=== PATIENT | female | born 1945 | race Caucasian/White ===

== ENCOUNTER 2020-05-21 07:47 | Outpatient (CLI) | payer MEDICARE, MEDICAID, SELFPAY ==
--- NOTE | 2020-05-21 | USCV_ITS ---
Ilana Lau Age: 74 Gender: F : 1945 Exam Date: 05/21/2020 08:39 Ordering Phys: Bryan Seay DO Technologist: Desirae Huntley [place] [facility] [place]ST PAIN BP: 123 / 69 HR: 65 Rhythm: Sinus Technical Quality: Adequate MEASUREMENTS (Male / Female) Normal Values 2D ECHO LV Diastolic Diameter PLAX 4.0 cm 4.2 - 5.9 / 3.9 - 5.3 cm LV Systolic Diameter PLAX 2.8 cm LV Chamber Size 3.7 cm IVS Diastolic Thickness 1.0 cm 0.6 - 1.0 / 0.6 - 0.9 cm IVS Systolic Thickness 1.8 cm LVPW Diastolic Thickness 0.6 cm 0.6 - 1.0 / 0.6 - 0.9 cm LVPW Systolic Thickness 1.9 cm RV Chamber Size 2.9 cm LVOT Diameter 2.0 cm LV Ejection Fraction 2D Teich 57.7 % LV Ejection Fraction MOD 2C 65.7 % LV Ejection Fraction 2C AL 67.1 % LA Diameter 3.4 cm LA Width 3.0 cm LA Height 4.2 cm RA Width 3.4 cm RA Height 3.9 cm Aorta at Sinotubular Diameter 3.0 cm M-MODE LV Diastolic Diameter MM 4.8 cm 4.2 - 5.9 / 3.9 - 5.3 cm LV Systolic Diameter MM 2.8 cm LV Ejection Fraction MM Teich 72.1 % IVS Diastolic Thickness MM 1.3 cm 0.6 - 1.0 / 0.6 - 0.9 cm IVS Systolic Thickness MM 1.7 cm LVPW Diastolic Thickness MM 1.3 cm 0.6 - 1.0 / 0.6 - 0.9 cm LVPW Systolic Thickness MM 1.9 cm RV Diastolic Diameter MM 1.6 cm Aortic Annulus Diameter 2.6 cm LA Ao Ratio MM 1.3 MV E Point Septal Separation 0.4 cm DOPPLER AV Peak Velocity 116.0 cm/s LVOT Peak Velocity 73.0 cm/s AV Area Cont Eq vti 2.1 cm squared AV Area Cont Eq pk 2.1 cm squared MV Area PHT 3.7 cm squared Mitral E to A Ratio 1.1 MV E' Velocity 39.0 cm/s Mitral E to MV E' Ratio 11.2 Mitral E to LV E' Lateral Ratio 11.1 Mitral E to LV E' Septal Ratio 11.4 TR Peak Velocity 207.8 cm/s TR Peak Gradient 17.3 mmHg TR Mean Velocity 145.8 cm/s TR Mean Gradient 10.3 mmHg TR Velocity Time Integral 63.1 cm TV Peak E Velocity 49.0 cm/s Right Atrial Pressure 3.0 mmHg Pulmonary Artery Systolic Pressu 20.3 mmHg PV Peak Velocity 43.0 cm/s RV Acceleration Time 0.2 s RV Ejection Time 0.4 s RV AcT/ET 0.4 FINDINGS Left Ventricle Normal left ventricular size and systolic function, EF 55 %. No regional wall motion abnormalities. Right Ventricle Normal right ventricular size and systolic function. Right Atrium Normal right atrial size. Left Atrium Normal left atrial size. Mitral Valve No gross abnormalities noted Aortic Valve Thickened aortic valve. Mild aortic valve regurgitation. Tricuspid Valve Trace tricuspid valve regurgitation. Pulmonic Valve Not visualized well Pericardium No pericardial effusion. Aorta Normal aortic annulus size. CONCLUSIONS Normal left ventricular size and systolic function, EF 55 %. No regional wall motion abnormalities. Thickened aortic valve. Mild aortic valve regurgitation. Trace tricuspid valve regurgitation. There is no pericardial effusion. There are no intracardiac masses. No previous study is available for comparison. Dr Yazan Angelo MD FACC (Electronically Signed) Final Date: 21 May 2020 17:57 S
--- NOTE | 2020-05-21 08:32 | XR_ITS ---
WS: [id number] CHEST 2 VIEWS HISTORY: CHEST PAIN COMPARISON: 01/18/2017 Lungs: Marked pulmonary hyperinflation. No pneumonia. Normal vasculature. No pleural effusion. Cardiac size: Mildly enlarged cardiac silhouette. Mediastinum/Aorta: Mildly ectatic aorta. Bones: Osteopenia with increase in thoracic kyphosis. XR/XR chest 2V* [id number] IMPRESSION: 1. Chronic emphysema with no pneumonia. 2. Mild atherosclerosis aorta.
== END 2020-05-21 07:48 | disposition home or self-care (01) ==
LOC: RAD 07:51
PROVIDERS: PCP Family Medicine; Visit Provider Family Medicine
DX: R07.89 Other chest pain (principal); Z72.0 Tobacco use; I10 Essential (primary) hypertension; J43.9 Emphysema, unspecified; I70.0 Atherosclerosis of aorta; I08.2 Rheumatic disorders of both aortic and tricuspid valves
CPT/HCPCS: 71046; 93306

== ENCOUNTER 2020-06-12 13:34 | Outpatient (CLI) | payer MEDICARE, MEDICAID, SELFPAY ==
--- NOTE | 2020-06-12 13:43 | MM_ITS ---
WS: [id number] Exam: [id number] Date/Time of Exam: 06/12/2020 1:43 PM Reason For Exam: SCREENING VIEWS: MLO and CC views both breasts. Comparison made with prior exam of 03/17/2017. Findings: There was no sign of mass, architectural distortion or suspicious calcification in either breast. Sc attered fibroglandular densities MM/[id number] Impression: BI-RADS: 2-Benign FOLLOW-UP: 1 Year Follow-up This mammogram was also analyzed by the Computer Aided Detection System R2 Imag e Account [employer].
== END 2020-06-12 13:35 | disposition home or self-care (01) ==
LOC: RADSHAW 13:41
PROVIDERS: PCP Family Medicine; Visit Provider Family Medicine
DX: Z12.31 Encounter for screening mammogram for malignant neoplasm of breast (principal)
CPT/HCPCS: 77067

== ENCOUNTER 2020-10-24 17:28 | Inpatient (IN) | payer MEDICARE, MEDICAID, SELFPAY ==
[2020-10-24] VITALS (11 sets, daily range): BP systolic 86–174; BP diastolic 61–88; PULSE 79–120; RESP 15–22; TEMP 36.7–37.1; O2SAT 94–98; BMI 28.7
--- NOTE | 2020-10-24 17:59 | XR_ITS ---
WS: [id number] Portable AP upright chest, 10/24/2020 Clinical Data: chest pain Comparison: PA and lateral chest, 05/21/2020. Findings: No nodules, masses or effusions are seen. The heart is slightly enlarged. The pulmonary vas cularity is not increased. No pneumonia or pneumothorax is seen. The aortic arch and descending aorta show calcification and tortuosity. Monitor leads are on the chest wall. XR/XR chest 1V portable [id number] Impression: Atherosclerosis and cardiomegaly.
--- NOTE | 2020-10-24 18:29 | W.ED.CHESTPA ---
HPI - Chest Pain General: Chief Complaint: Chest Pain Stated Complaint: HEART ISSUES, HEADACHE Time Seen by Provider: 10/24/20 18:15 Source: patient Mode of arrival: ambulatory Limitations: no limitations History of Present Illness: HPI narrative: 74-year-old female states that starting days been having chest pain along with shortness of breath. She states that it is much worse with deep inspiration. Patient here is in A. fib with RVR and has no history of A. fib in the past. States pain is sharp in nature over the left side. Denies any history of heart disease. She has had no cough or fever. Denies any vomiting or diarrhea. Associated symptoms: Deny abdominal pain, dyspnea, fever(s), nausea or vomiting Review of Systems Const: Denies: fever(s), chills, body aches or change in appetite Eyes: Denies: blurry vision or eye discomfort ENMT: Denies: throat pain or dental pain Card: Reports: chest pain and irregular heart rhythm Resp: Denies: dyspnea GI: Denies: abdominal pain, nausea, vomiting or diarrhea : Denies: dysuria Musc: Denies: neck pain or back pain Skin/Breast: Denies: rash Neuro: Denies: headache(s) Psych: Denies: depression Dawit/Lymph: Denies: easy bruising All/Imm: Denies: urticaria Physical Exam Const: COMMON NORMALS: no acute distress, patient oriented x3 and healthy appearing HENMT: COMMON NORMALS: normocephalic and atraumatic HEAD & SCALP: normocephalic and atraumatic Eye: COMMON NORMALS: Equal, round and reactive pupils present and EOMs intact bilaterally PUPIL: Yes Equal, round and reactive pupils present Neck/C-Spine: COMMON NORMALS: full ROM and supple Chest: COMMONS NORMALS: normal inspection of the chest and normal palpation of entire chest wall Resp: COMMON NORMALS: normal respiratory effort, No retractions, No use of accessory muscles and clear to auscultation bilaterally AUSCULTATION: clear to auscultation bilaterally Cardio: COMMON NORMALS: No murmurs present (Cardio) RATE: tachycardic RHYTHM: abnormal rhythm irregularly irregular GI: COMMON NORMALS: Normal to inspection, nondistended, normoactive bowel sounds present, Soft to palpation, non-tender and no masses PALPATION: Yes Soft to palpation Extremity: COMMON NORMALS: normal to inspection and full ROM Neuro: COMMON NORMALS: patient oriented x3, moves all extremities and no focal motor deficits Psych: COMMON NORMALS: mental status grossly normal, Normal thought process present and cooperative THOUGHT PROCESS: Normal thought process present Skin: COMMON NORMALS: no rashes or lesions noted and no wounds GENERAL SKIN EXAM: no rashes or lesions noted Course Vital Signs: Vital signs: Vital Signs Temperature 98.8 F 10/24/20 17:51 Pulse Rate 79 10/24/20 18:49 Respiratory Rate 15 10/24/20 18:49 Blood Pressure 102/75 10/24/20 18:49 Pulse Oximetry 96 10/24/20 18:49 MDM - Chest Pain MDM Narrative: Medical decision making narrative: Patient presents here with A. fib with RVR that is new onset. Her heart rate here is improved after Cardizem and Cardizem drip. Her D-dimer is negative with no signs of pulmonary embolism. Initial troponin is negative as well. Spoke to hospitalist will admit and further trend troponin and will admit for new onset A. fib. Lab Data: Labs: Lab Results 10/24/20 10/24/20 10/24/20 Range/Units 18:30 18:30 18:30 WBC 9.7 (4.0-10.0) 10^3/ uL RBC 4.30 (4.1-5.3) 10^6/u L Hgb 13.3 (11.5-15.3) g/dL Hct 40.5 (37.0-47.0) % MCV 94.2 (81-99) fL MCH 30.9 (28.0-34.0) pg MCHC 32.8 (30.0-36.0) g/dL RDW 12.5 (12.1-15.1) % Plt Count 291 (130-400) 10^3/c mm MPV 8.9 (7.4-10.4) fL Neut % (Auto) 65.8 % Lymph % (Auto) 23.9 % [place] % (Auto) 8.2 % Eos % (Auto) 0.8 % Baso % (Auto) 1.1 % Neut # (Auto) 6.35 (1.8-7.7) 10^3/u L Lymph # (Auto) 2.3 (0.8-4.8) 10^3/u L [place] # (Auto) 0.8 (0.2-0.9) 10^3/u L Eos # (Auto) 0.1 (0.0-0.8) 10^3/u L Baso # (Auto) 0.1 (0.0-0.1) 10^3/u L Nucleated RBC % (a uto) 0 % Nucleated RBCs # 0.0 /100WBC D-Dimer (0-0.59) ug/mIFE U Sodium 132 L (136-145) mmol/L Potassium 3.6 (3.5-5.1) mmol/L Chloride 91 L (98-107) mmol/L Carbon Dioxide 30 H (22-29) mmol/L Anion Gap 14.6 (5-19) BUN 12 (8-23) mg/dL Creatinine 0.8 (0.5-0.9) mg/dL GFR Calculation Not Reportable Glucose 127 H (65-115) mg/dL Calculated Osmolal ity 275 L (285-295) mOsm/k g Calcium 9.8 (8.5-10.5) mg/dL Magnesium 2.2 (1.7-2.3) mg/dL Total Bilirubin 0.4 (0.15-1.2) mg/dL AST 19 (0-32) U/L ALT 14 (0-33) U/L Alkaline Phosphata se 56 (35-105) IU/L Troponin T Baselin e 11 H (0-10) ng/L NT-Pro-B Natriuret Pep 1272 H (0-450) pg/mL Total Protein 7.3 (6.6-8.7) g/dL Albumin 4.8 (3.5-5.2) g/dL Globulin 2.5 (1.3-4.6) g/dL 10/24/20 Range/Units 18:30 WBC (4.0-10.0) 10^3/ uL RBC (4.1-5.3) 10^6/u L Hgb (11.5-15.3) g/dL Hct (37.0-47.0) % MCV (81-99) fL MCH (28.0-34.0) pg MCHC (30.0-36.0) g/dL RDW (12.1-15.1) % Plt Count (130-400) 10^3/c mm MPV (7.4-10.4) fL Neut % (Auto) % Lymph % (Auto) % [place] % (Auto) % Eos % (Auto) % Baso % (Auto) % Neut # (Auto) (1.8-7.7) 10^3/u L Lymph # (Auto) (0.8-4.8) 10^3/u L [place] # (Auto) (0.2-0.9) 10^3/u L Eos # (Auto) (0.0-0.8) 10^3/u L Baso # (Auto) (0.0-0.1) 10^3/u L Nucleated RBC % (a uto) % Nucleated RBCs # /100WBC D-Dimer 0.41 (0-0.59) ug/mIFE U Sodium (136-145) mmol/L Potassium (3.5-5.1) mmol/L Chloride (98-107) mmol/L Carbon Dioxide (22-29) mmol/L Anion Gap (5-19) BUN (8-23) mg/dL Creatinine (0.5-0.9) mg/dL GFR Calculation Glucose (65-115) mg/dL Calculated Osmolal ity (285-295) mOsm/k g Calcium (8.5-10.5) mg/dL Magnesium (1.7-2.3) mg/dL Total Bilirubin (0.15-1.2) mg/dL AST (0-32) U/L ALT (0-33) U/L Alkaline Phosphata se (35-105) IU/L Troponin T Baselin e (0-10) ng/L NT-Pro-B Natriuret Pep (0-450) pg/mL Total Protein (6.6-8.7) g/dL Albumin (3.5-5.2) g/dL Globulin (1.3-4.6) g/dL Imaging Data^: CXR: Attestation: I personally reviewed and interpreted this imaging study as follows: My impression: no acute abnormality Critical Care Time Critical Care Time: Critical Care Time: Yes Total Critical Care Time: 36 Attestation: This case had a high probability of a clinically significant, sudden, or life threatening deterioration of this patient's condition which required my full and direct attention, intervention and personal management. Discharge Plan Discharge Patient Disposition: Admitted As Inpatient Clinical Impression: Chest pain Atrial fibrillation Qualifiers: Atrial fibrillation type: unspecified Qualified Code(s): I48.91 - Unspecified atrial fibrillation Condition: Stable Coding Level of Care Code ED Benefits Assistant for [facility] Fwd Exam Comprehensive
[2020-10-24 18:42] LABS: Basophils # 0.1 10^3/uL (0.0-0.1); Basophils % 1.1 %; Eosinophils # 0.1 10^3/uL (0.0-0.8); Eosinophils % 0.8 %; Hematocrit 40.5 % (37.0-47.0); Hemoglobin 13.3 g/dL (11.5-15.3); Lymphocytes # 2.3 10^3/uL (0.8-4.8); Lymphocytes % 23.9 %; Mean Corpuscular HGB Conc 32.8 g/dL (30.0-36.0); Mean Corpuscular Hemoglobin 30.9 pg (28.0-34.0); Mean Corpuscular Volume 94.2 fL (81-99); Mean Platelet Volume 8.9 fL (7.4-10.4); Monocytes # 0.8 10^3/uL (0.2-0.9); Monocytes % 8.2 %; Neutrophils # 6.35 10^3/uL (1.8-7.7); Neutrophils % 65.8 %; Nucleated Red Blood Cells % 0 %; Platelet Count 291 10^3/cmm (130-400); Red Cell Distribution Width 12.5 % (12.1-15.1); White Blood Count 9.7 10^3/uL (4.0-10.0)
[2020-10-24 19:00] LABS: Troponin(5th) Baseline 11 ng/L (0-10)
[2020-10-24 19:10] LABS: Alanine Aminotransferase 14 U/L (0-33); Albumin Level 4.8 g/dL (3.5-5.2); Alkaline Phosphatase 56 IU/L (35-105); Anion Gap 14.6 (5-19); Aspartate Amino Transferase 19 U/L (0-32); Blood Urea Nitrogen 12 mg/dL (8-23); Calcium 9.8 mg/dL (8.5-10.5); Carbon Dioxide 30 mmol/L (22-29); Chloride 91 mmol/L (98-107); Creatinine Clr Calc Pharmacy 57.4532; Globulin 2.5 g/dL (1.3-4.6); Glucose 127 mg/dL (65-115); Magnesium 2.2 mg/dL (1.7-2.3); NT Pro B Type Natriuretic Pept 1272 pg/mL (0-450); Osmolality Calculated 275 mOsm/kg (285-295); Potassium 3.6 mmol/L (3.5-5.1); Sodium 132 mmol/L (136-145); Total Bilirubin 0.4 mg/dL (0.15-1.2); Total Protein 7.3 g/dL (6.6-8.7)
[2020-10-24 19:21] LABS: D Dimer 0.41 ug/mIFEU (0-0.59)
--- NOTE | 2020-10-24 19:42 | P.HP_ITS ---
Providers/Chief Complaint Primary Care Provider: Bryan Seay DO Chief Complaint: HEART ISSUES, HEADACHE History of Present Illness Ilana Lau is a 74 year old female who only has past medical history of hypertension presented today with chief complaint of chest discomfort. Patient is stating that her symptoms started today at 7 AM which she describing as chest discomfort substernal it was radiating towards her right subcostal region, around 3 PM it got worse and it was radiating towards the left rib cage area, it was not associated with nausea, vomiting, diarrhea, fever, she did not notice any palpitations, diaphoresis or syncopal event. No orthopnea or PND. She is fairly active for age taking care of uncle of her [id number]. She is describing her chest pain as achy in nature which was constant and got worse at 3 PM, morphine helped her, she did not experience similar symptoms before. Diagnostics in the ER revealed new onset A. fib RVR Cardizem bolus did not reduce her heart rate, she was started on Cardizem drip at the time of my evaluation she was chest pain-free Cardizem drip was running at 10 mg/h, daughter was at the bedside Potassium 3.6, will check TSH and magnesium level, D-dimer unremarkable, ruled out PE, EKG showing A. fib RVR, chest x-ray without acute pathological findings BNP 1200, mild cardiomegaly on chest x-ray Review of Systems 2 Const: Denies: fever(s) Eyes: Denies: change in vision ENMT: Denies: throat pain Card: Reports: chest pain; Denies: swelling of feet/ankles, syncope, pre-syncope or orthopnea Resp: Denies: dyspnea GI: Denies: abdominal pain : Denies: flank pain Musc: Denies: neck pain Skin/Breast: Denies: rash Neuro: Reports: headache(s) Psych: Denies: anxiety Endo: Denies: polyuria Daw[place]/Lymph: Denies: easy bruising All/Imm: Denies: urticaria Medications/Allergies Home Medications Medication Instructions Recorded Confirmed Last Taken Type [place] 3 1 cap PO QAM 10/24/20 10/24/20 10/24/20 History Vitamin D3 1 cap PO QAM 10/24/20 10/24/20 10/24/20 History ascorbic acid (vitamin C) [Vitamin 500 mg PO DAILY 10/24/20 10/24/20 10/24/20 History C] aspirin [Aspir-81] 81 mg PO QAM 10/24/20 10/24/20 10/24/20 History lisinopril-hydrochlorothiazide 1 tab PO QAM 10/24/20 10/24/20 10/24/20 05:30 History multivitamin 1 tab PO QAM 10/24/20 10/24/20 10/24/20 History vitamin B complex [Super B Complex] 1 tab PO QAM 10/24/20 10/24/20 10/24/20 History Allergies Allergy/AdvReac Type Severity Reaction Status Date / Time atorvastatin [From Lipitor] Allergy ADR-Muscle Verified 10/24/20 18:33 Pain PFSH Acute PFSH: Medical History (Updated 10/24/20 @ 21:00 by Katherine Seaman MD) Hypertension Surgical History (Updated 10/24/20 @ 21:00 by Katherine Seaman MD) H/O thyroidectomy H/O: hysterectomy Hx of appendectomy Family History (Updated 10/24/20 @ 21:00 by Katherine Seaman MD) Denies family history of Diabetes Hyperlipidemia Social History (Updated 10/24/20 @ 21:01 by Katherine Seaman MD) Smoking and tobacco status: former smoker Alcohol intake: current Alcohol intake frequency: holidays/special occasions only Substance/Drug Use: never Household members: friend(s) Housing: House Vitals/I&O/Wt Last Vital Signs Temp 98.8 F 10/24/20 17:51 Pulse 79 10/24/20 18:49 Resp 15 10/24/20 18:49 BP 102/75 10/24/20 18:49 Pulse Ox 96 10/24/20 18:49 Weight last 48 hrs Weight 73.482 kg Physical Exam Narrative: EXAM NARRATIVE: Very pleasant elderly female, appears younger than stated age No signs of dehydration or heart failure Currently saturating well on room air S1-S2 variable, no murmur appreciated Abdomen soft nontender bowel sound present Lower extremity no edema gangrene ulcer EOMI, PERRLA no neurological deficits Bilateral breath sound without adventitious rhonchi or crackles No sign of cellulitis Appropriate mood and affect Data : 10/24/20 18:30 10/24/20 18:30 A&P Assessment and plan (1) Atrial fibrillation: Status: Acute Qualifiers: Atrial fibrillation type: unspecified Qualified Code(s): I48.91 - Unspecified atrial fibrillation (2) Chest pain: Status: Acute Additional A&P Information New onset A. fib RVR Currently chest pain-free, [id number] score 4 considering age and sex no history of diabetes or congestive heart failure, will start on Eliquis Titrate off Cardizem drip and start Cardizem p.o. in the morning Check TSH and magnesium level D-dimer unremarkable l, PE less likely No active chest pain, troponin not significantly high Will obtain echo in the morning Atypical chest pain Tachyarrhythmia most likely is the cause of her chest discomfort, currently symptom-free EKG without ischemic or infarct changes troponin XI we will follow- up with echo if it shows any wall motion abnormality Cardiac diet DVT prophylaxis Full code Attestations Medical Necessity Statement*: Anticipating discharge in less than 2 midnights currently on Cardizem drip, she will need rate control and initiation of anticoagulating agent in the morning Time Spent in Patient Care: (>than 50% of time spent in counselling and/or direct pt care on unit) . 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
[2020-10-24] MEDS: ondansetron 2 mg/ML SDV 2 mL 4 MG IVP (19:56)
[2020-10-24] MEDS: morphine 4 mg/mL SDV 1 mL IVP (19:56)
--- NOTE | 2020-10-24 19:59 | ECG_ITS ---
[facility] Test Date: 2020-10-24 Pat Name: Ilana Lau Department: Room: 108 Gender: Female Software Clerk: : 1945 Requested By: Carlton Kelly Order Number: [id number] Ramandeep MD: Nai Bauer M.D. Measurements Intervals [place] Rate: 94 P: RI: QRS: 61 QRSD: 93 T: 47 QT: 359 QTc: 450 Interpretive Statements ATRIAL FIBRILLATION ABNORMAL RHYTHM ECG No previous ECG available for comparison Electronically Signed On 10-24-2020 22:33:26 CDT by Nai Bauer M.D. [id number]
--- NOTE | 2020-10-24 20:54 | PC.NURSE ---
EKG done at 1999 and shown to ER doctor
[2020-10-24] MEDS: apixaban 5 mg Tablet PO (21:33)
[2020-10-24] MEDS: ketorolac 30 mg/mL INJ 15 MG IVP (21:33)
[2020-10-24] MEDS: morphine 4 mg/mL SDV 1 mL 2 MG IVP (21:33)
[2020-10-24 21:35] LABS: Troponin 5 2HR 8.66 ng/L (0-10)
[2020-10-24 21:36] LABS: Troponin 5 2HR Delta -2.34 ABS# (0-10)
[2020-10-24] MEDS: potassium chloride ER 20 mEq Tablet 40 MEQ PO (21:38)
[2020-10-24 21:45] LABS: Thyroid Stimulating Hormone 2.85 uIU/mL (0.27-4.20)
--- NOTE | 2020-10-24 21:53 | PC.NURSE ---
Dr. Seaman notified of patient still complaining of 10/10 chest pain after PRN Morphine and one time dose of ordered Toradol. Patient states pain is worse with movement and deep breathing.
--- NOTE | 2020-10-24 22:19 | PC.NURSE ---
Patient now states that her pain is gone.
[2020-10-25] VITALS (14 sets, daily range): BP systolic 89–122; BP diastolic 48–77; PULSE 84–124; RESP 14–18; TEMP 37.2–37.5; O2SAT 93–96
[2020-10-25 01:37] LABS: Troponin 5 6HR 10.01 ng/L (0-10)
[2020-10-25 01:42] LABS: Troponin 5 6HR Delta 1.35 ng/L (0-12)
[2020-10-25 05:22] LABS: Anion Gap 13.7 (5-19); Blood Urea Nitrogen 16 mg/dL (8-23); Carbon Dioxide 28 mmol/L (22-29); Chloride 94 mmol/L (98-107); Glucose 124 mg/dL (65-115); Osmolality Calculated 275 mOsm/kg (285-295); Potassium 4.7 mmol/L (3.5-5.1); Sodium 131 mmol/L (136-145)
[2020-10-25] MEDS: aspirin 81 mg EC Tablet PO (05:22)
[2020-10-25] MEDS: apixaban 5 mg Tablet PO ×2 (09:29→23:54)
--- NOTE | 2020-10-25 10:20 | PM.PN ---
Subjective Subjective: Interval history: She states she is doing all right. She is bothered by pleuritic discomfort, cannot take a deep breath without triggering cough. Is not coughing up any phlegm. Denies persistent chest pain or pressure. However, the pleuritic component is quite bothersome. Vitals/I&O/Wt Last Vital Signs Temp 99.3 F 10/25/20 07:30 Pulse 107 H 10/25/20 09:27 Resp 14 10/25/20 07:30 BP 98/59 10/25/20 09:27 Pulse Ox 96 10/25/20 09:27 10/24/20 10/25/20 10/25/20 22:59 06:59 14:59 Intake Total 100 / 100 46.666 / 146.666 240 / 240 Output Total 60 / 60 Balance 100 / 100 46.666 / 146.666 180 / 180 Weight last 48 hrs Weight 73.482 kg Physical Exam Const: COMMON NORMALS: no acute distress and patient oriented x3 HENMT: COMMON NORMALS: oropharynx normal Neck/C-Spine: COMMON NORMALS: no JVD Resp: COMMON NORMALS: normal respiratory effort and clear to auscultation bilaterally AUSCULTATION: clear to auscultation bilaterally Cardio: COMMON NORMALS: no JVD, regular rhythm, S1 normal heart sound present, S2 normal heart sound present and No murmurs present (Cardio) RHYTHM: regular rhythm HEART SOUNDS: S1 normal heart sound present and S2 normal heart sound present GI: COMMON NORMALS: Normal to inspection, nondistended, normoactive bowel sounds present, Soft to palpation and non-tender PALPATION: Yes Soft to palpation Extremity: COMMON NORMALS: no joint enlargement and no pedal edema Neuro: COMMON NORMALS: patient oriented x3 and moves all extremities Skin: COMMON NORMALS: no rashes or lesions noted GENERAL SKIN EXAM: no rashes or lesions noted Data : 10/24/20 18:30 10/25/20 04:34 A&P Assessment and plan (1) Atrial fibrillation: Heart rates fluctuating 100-110. Cardizem drip was stopped at midnight last night. This morning oral Cardizem was ordered, she was also resumed on her home blood pressure medications, however, blood pressures have been low overnight. Last night as low as 86/61. This morning blood pressure 98/59. Antihypertensives held. For now we will hold oral Cardizem as well. Monitor blood pressures, heart rate. If blood pressure is improving after weaning of Cardizem drip, may give a trial of oral beta-juan manuel. Otherwise discussed with her consideration of digoxin. She is agreeable to continue anticoagulation. Echocardiogram pending. Continue telemetry monitoring. Magnesium, potassium are good. TSH normal. Denies chest pain or pressure. Troponin without significant elevation to suggest acute ischemia/SC. She does have a component of pleuritic pain. With low blood pressures, new atrial fibrillation, pleuritic pain, cough triggered on inspiration, even though D-dimer was low, will additionally assess with VQ scan. Status: Acute Qualifiers: Atrial fibrillation type: unspecified Qualified Code(s): I48.91 - Unspecified atrial fibrillation (2) Chest pain: Pleuritic. Troponin without elevation suggest acute SC. Pending TTE. Additional assessment as above. Status: Acute Attestations Medical Necessity Statement*: Admission of over 2 midnights is needed for assessment management of new difficulty control atrial fibrillation, with poor response to Cardizem drip, with hypotension, additional need for optimization of rate control, assessment of pleuritic chest pain, additional assessment for possible etiologies such as pulmonary embolism. Coding Level of Care Code Acute Card Fixer for [facility] Diagnoses Atrial fibrillation I48.91 Atrial fibrillation type: unspecified Chest pain R07.9
--- NOTE | 2020-10-25 10:28 | NM_ITS ---
WS: [id number] NUCLEAR MEDICINE LUNG VENTILATION AND PERFUSION CLINICAL INFORMATION: New A. fib, cough triggered on aspiration, pleuritic pain, TECHNIQUE: Ventilation/perfusion lung scan with 27.3 mCi technetium 99m DTPA. 4.7 mCi technetium 99m MAA COMPARISON: Radiograph October 24, 2020 FINDINGS: Cardiomegaly with chronic emphysematous changes. Pooling of radiotracer in the trachea and proximal b ronchi on the ventilatory images. Patchy heterogeneous ventilatory uptake bilaterally due to emphysem atous changes. Heterogeneous but symmetric bilateral perfusion activity. No mismatched perfusion defects to indicate pulmonary embolus. NM/NM pul vent and perfus* [id number] IMPRESSION: 1. Low probability for pulmonary embolus.
--- NOTE | 2020-10-25 11:43 | PC.CHAP ---
Pastoral Care Encounter/Spiritual Assessment Type of Contact [] Declined garment steamer visit [] Patient/Family/Request visit [] Outpatient visit [] Follow-up visit [] Physician referral [] Code/Alert [xx] Routine visit [] Staff referral [] Actively dying [] Patient sleeping [] Family support [] [] Out of room [] Palliative care [] [] Receiving care in room [] Pre-surgical visit [] Trauma [] Long length of stay [] ICU visit [] Other: Relational/Emotional Strength [xx] Patient feels connected with others/family/visitors/staff [] Distress [] Loneliness/isolation [] Abandonment Spirituality of Patient [xx] Person of Ann [xx] Attends Buddhism of their Ann [xx] Believes in Prayer [xx] Reads Bible or Mu-Ism materials [] There are Spiritual issues to be addressed Flux Tube Attendant Interventions [xx] Prayer [xx] Active listening [xx] Non-anxious presence [] Spiritual/emotional support [] Crisis/trauma care [] Spiritual counseling [] Bereavement support [] Provided bereavement packet [] Provided Bible/devotional materials [] Provided toy/stuffed animal, coloring book to patient or family member [] Provided Communion [] Anointing/[place] [] Salvation [xx] Completed spiritual assessment [] Other: Impact on Illness or Injury [] Angry [] Fearful [] Anxious [] Often cries [] Exhaustion [] Unable to work [] Unable to attend scientology [] Unable to walk/stand [] Unable to read [] Unable to drive [] Unable to eat/drink [] Unable to sleep [] Unable to be with family [] Patient intubated [] Other: Summary Patient very pleasant and wanted lengthy visit as well as prayer. Medical staff interrupted after about 15 minutes. Time spent with patient 17 minutes
[2020-10-25 12:48] LABS: Add Urine Microscopic? YES; Bilirubin Urine Neg (Negative); Blood Urine Trace (Negative); Glucose Urine UA Norm (Normal); Ketones Urine Negative (Negative); Leukocyte Esterase Urine 1+ (Negative); Nitrate Urine Negative (Negative); Protein Urine Neg (Negative); Urine Appearance SL Hazy (CLEAR); Urine Color Yellow (Yellow); Urobilinogen Urine Norm (Negative); pH Urine 7 (5-7)
[2020-10-25 12:52] LABS: Bacteria Urine 2+ /hpf
[2020-10-25 12:53] LABS: Add Urine Culture? Yes
[2020-10-25] MEDS: metoprolol tartrate 25 mg Tablet PO ×2 (13:16→23:54)
[2020-10-25] MEDS: morphine 4 mg/mL SDV 1 mL 2 MG IVP (18:41)
--- NOTE | 2020-10-25 21:14 | USCV_ITS ---
Ilana aLu Age: 74 Gender: F : 1945 Exam Date: 10/25/2020 05:53 Ordering Phys: Katheirne Seaman MD Technologist: Desirae Huntley Exam Location: [facility] – [place] Indication: CHEST LPAIN BP: 93 / 64 HR: 120 Rhythm: Sinus Technical Quality: MEASUREMENTS (Male / Female) Normal Values 2D ECHO LV Diastolic Diameter PLAX 4.4 cm 4.2 - 5.9 / 3.9 - 5.3 cm LV Systolic Diameter PLAX 3.4 cm LV Chamber Size 3.6 cm IVS Diastolic Thickness 1.2 cm 0.6 - 1.0 / 0.6 - 0.9 cm IVS Systolic Thickness 1.6 cm LVPW Diastolic Thickness 1.5 cm 0.6 - 1.0 / 0.6 - 0.9 cm LVPW Systolic Thickness 1.3 cm RV Chamber Size 3.1 cm LVOT Diameter 2.0 cm LV Ejection Fraction 2D Teich 40.0 % LV Ejection Fraction MOD 2C 51.3 % LV Ejection Fraction 2C AL 53.3 % LA Diameter 4.0 cm LA Width 3.7 cm LA Height 3.8 cm RA Width 3.2 cm RA Height 5.0 cm Aorta at Sinotubular Diameter 2.6 cm M-MODE LV Diastolic Diameter MM 4.8 cm 4.2 - 5.9 / 3.9 - 5.3 cm LV Systolic Diameter MM 3.9 cm LV Ejection Fraction MM Teich 38.4 % IVS Diastolic Thickness MM 0.8 cm 0.6 - 1.0 / 0.6 - 0.9 cm IVS Systolic Thickness MM 1.1 cm LVPW Diastolic Thickness MM 1.0 cm 0.6 - 1.0 / 0.6 - 0.9 cm LVPW Systolic Thickness MM 1.3 cm RV Diastolic Diameter MM 1.6 cm Aortic Annulus Diameter 3.6 cm LA Ao Ratio MM 1.3 MV E Point Septal Separation 0.1 cm DOPPLER AV Peak Velocity 103.0 cm/s LVOT Peak Velocity 55.0 cm/s AV Area Cont Eq vti 2.0 cm squared AV Area Cont Eq pk 1.7 cm squared MV Area PHT 8.1 cm squared Mitral E to A Ratio 50.3 MV E' Velocity 58.5 cm/s Mitral E to MV E' Ratio 10.4 Mitral E to LV E' Lateral Ratio 9.9 Mitral E to LV E' Septal Ratio 10.9 TR Peak Velocity 248.7 cm/s TR Peak Gradient 24.8 mmHg TR Mean Velocity 177.0 cm/s TR Mean Gradient 14.3 mmHg TR Velocity Time Integral 64.4 cm TV Peak E Velocity 65.0 cm/s Right Atrial Pressure 5.0 mmHg Pulmonary Artery Systolic Pressu 29.8 mmHg PV Peak Velocity 68.0 cm/s RV Acceleration Time 0.1 s RV Ejection Time 0.3 s RV AcT/ET 0.3 FINDINGS Left Ventricle Normal LV size ejection fraction of 65%. No gross wall motion of normalities. Mild concentric left ventricular hypertrophy Right Ventricle Mildly increased right ventricular size. Normal right ventricular systolic function. Right Atrium Mildly increased right atrial size. Left Atrium Mildly increased left atrial size. Mitral Valve Trace mitral valve regurgitation. Aortic Valve Thickened aortic valve. Trace of aortic regurgitation Tricuspid Valve Trace to mild tricuspid valve regurgitation. Pulmonic Valve No gross abnormalities noted Pericardium No pericardial effusion. Aorta Normal aortic annulus size. CONCLUSIONS Normal LV size ejection fraction of 65%. No gross wall motion of normalities. Mild concentric left ventricular hypertrophy. Thickened aortic and mitral valves. Mild biatrial enlargement. Trace to mild tricuspid valve regurgitation. Trace mitral and aortic valve regurgitation. Estimated pulmonary artery peak systolic pressure of 30 mmHg. Compared to the previous study from 05/21/2020, there may not be a significant Dr Yazan Angelo MD [facility] (Electronically Signed) Final Date: 25 October 2020 15:17 S
[2020-10-26] VITALS (9 sets, daily range): BP systolic 102–124; BP diastolic 64–82; PULSE 88–110; RESP 12–20; TEMP 36.7–37.1; O2SAT 93–96
[2020-10-26 05:50] LABS: Anion Gap 12.4 (5-19); Blood Urea Nitrogen 18 mg/dL (8-23); Carbon Dioxide 28 mmol/L (22-29); Chloride 96 mmol/L (98-107); Glucose 109 mg/dL (65-115); Osmolality Calculated 276 mOsm/kg (285-295); Potassium 4.4 mmol/L (3.5-5.1); Sodium 132 mmol/L (136-145)
[2020-10-26] MEDS: aspirin 81 mg EC Tablet PO (05:59)
[2020-10-26] MEDS: apixaban 5 mg Tablet PO ×2 (08:14→21:13)
[2020-10-26] MEDS: metoprolol tartrate 25 mg Tablet PO (08:14)
--- NOTE | 2020-10-26 13:35 | CTR_ITS ---
PROCEDURE INFORMATION: Exam: CT Chest Without Contrast; Diagnostic Exam date and time: 10/26/2020 2:34 PM Age: 74 years old Clinical indication: Shortness of breath; Additional info: Persistent pleuritic pain, unremarkable cxr, vq TECHNIQUE: Imaging protocol: Diagnostic computed tomography of the chest without contrast. Radiation optimization: All CT scans at this facility use at least one of these dose optimization techniques: automated exposure control; mA and/or kV adjustment per patient size (includes targeted exams where dose is matched to clinical indication); or iterative reconstruction. COMPARISON: NM pul vent and perfus* [id number] 10/25/2020 10:46 AM RADIATION DOSE METRICS: Total DLP (mGy-cm): 597.48 FINDINGS: Thyroid: Small versus absent left lobe of thyroid. No nodules in the right lobe. Lungs: Mild fibrosis versus atelectasis in the bilateral lower lobes and the inferior lingula. No consolidative pulmonary infiltrate noted. Pleural spaces: Punctate pleural calcification left lower posterior thorax. Mild pleural thickening. No pleural effusion. No pneumothorax. Heart: Mild cardiomegaly is noted. Aorta: Atherosclerosis of the thoracic aorta. No aortic aneurysm. Lymph nodes: Unremarkable. No enlarged lymph nodes. Bones/joints: Degenerative spine changes are noted. No fracture or other acute osseous abnormality. Soft tissues: The soft tissues appear unremarkable. CT/CT chest wo con [id number] IMPRESSION: 1. Mild cardiomegaly is noted. 2. Mild fibrosis versus atelectasis in the bilateral lower lobes and the inferior lingula. No consolidative pulmonary infiltrate noted. 3. Punctate pleural calcification left lower posterior thorax. Mild pleural thickening. No pleural effusion. No pneumothorax. 4. No acute cardiopulmonary disease demonstrated. Radiation Dose CTDIVOL = (mGy): DLP = 597.48 (mGy-cm)
[2020-10-26] MEDS: magnesium hydroxide 30 mL UDC PO (15:10)
--- NOTE | 2020-10-26 17:15 | PC.NURSE ---
Notified Physician Pt went into afib with rvr with HR in 120s to 130s. BP-124/82. Dr informed of the ranges. Received telephone order readback to give IVP 5 mg Metoprolol once now and increase Metoprolol to 50 mg orally starting tonight then twice a day.
--- NOTE | 2020-10-26 18:00 | PC.NURSE ---
Physician rounding is at bedside and discussion regarding treatments, result of her CT scan Chest and medication adjustment to pt and son at bedside.
[2020-10-26] MEDS: metoprolol tartrate 1 mg/1 mL SDV 5 mL 5 MG IV (18:02)
--- NOTE | 2020-10-26 20:25 | P.PN_ITS ---
Subjective Subjective: Interval history: She is doing all right. Still bothered by pleuritic discomfort, feels like her breasts get caught up short, she cannot catch a deep breath. Being visited by her son. Vitals/I&O/Wt Last Vital Signs Temp 98.8 F 10/26/20 19:04 Pulse 106 H 10/26/20 19:04 Resp 18 10/26/20 19:04 BP 107/70 10/26/20 19:04 Pulse Ox 94 10/26/20 19:04 10/26/20 10/26/20 10/26/20 06:59 14:59 22:59 Intake Total 694 / 694 360 / 1054 Output Total 1500 / 2760 Balance -1500 / -1800 694 / 694 360 / 1054 Physical Exam Const: COMMON NORMALS: no acute distress and patient oriented x3 HENMT: COMMON NORMALS: oropharynx normal Neck/C-Spine: COMMON NORMALS: no JVD Resp: COMMON NORMALS: normal respiratory effort and clear to auscultation bilaterally AUSCULTATION: clear to auscultation bilaterally Cardio: COMMON NORMALS: no JVD, regular rhythm, S1 normal heart sound present, S2 normal heart sound present and No murmurs present (Cardio) RHYTHM: regular rhythm HEART SOUNDS: S1 normal heart sound present and S2 normal heart sound present GI: COMMON NORMALS: Normal to inspection, nondistended, normoactive bowel sounds present, Soft to palpation and non-tender PALPATION: Yes Soft to palpation Extremity: COMMON NORMALS: no joint enlargement and no pedal edema Neuro: COMMON NORMALS: patient oriented x3 and moves all extremities Skin: COMMON NORMALS: no rashes or lesions noted GENERAL SKIN EXAM: no rashes or lesions noted Data : 10/24/20 18:30 10/26/20 04:23 Micro: Microbiology 10/25/20 12:30 Urine Culture - Preliminary Urine,Clean Catch A&P Assessment and plan (1) Atrial fibrillation: Heart rates transiently improved, however, this afternoon again up into 120s-130s. Given 5 mg IV metoprolol. We are increasing metoprolol dose to 50 mg twice daily. She is agreeable to continue anticoagulation. Echocardiogram with normal EF, no gross wall motion abnormalities. Mild co ncentric LVH. Thickened aortic and mitral valves. Biatrial enlargement. Mild TR, trace MVR and AVR. Continue telemetry monitoring. Magnesium, potassium are good. TSH normal. Denies chest pain or pressure. (Only pleuritic discomfort). Troponin without significant elevation to suggest acute ischemia/IA. She does have a component of pleuritic pain. With low blood pressures, new atrial fibrillation, pleuritic pain, cough triggered on inspiration, even though D-dimer was low, will additionally assess with VQ scan. Status: Acute Qualifiers: Atrial fibrillation type: unspecified Qualified Code(s): I48.91 - Unspecified atrial fibrillation (2) Chest pain: Pleuritic discomfort, today does not describe it as pain, states it is more like a rest of respiration, and feels like cannot take deep breaths. We obtained CT chest due to persistent symptoms, so far nondiagnostic other modalities. Discussed with her and her son regarding the results, noted appearance of bilateral pulmonary fibrosis in lower lobes. Punctate pleural calcifications left lower posterior thorax. Mild pleural thickening. Discussed additional assessment options. They are agreeable for referral for pulmonary function testing after discharge and consideration of pulmonology follow-up with PCP. Troponin without elevation suggest acute IA. VQ low probability for PE. Status: Acute Attestations Medical Necessity Statement*: Continue admission for management of atrial fibrillation with RVR, optimization of rate control, in the setting of soft blood pressures, assessment of persistent pleuritic chest discomfort. Post discharge planning. Coding Level of Care Code Acute Stemhole Borer And Topper for [facility] Fwd Exam Comprehensive Diagnoses Atrial fibrillation I48.91 Atrial fibrillation type: unspecified Chest pain R07.9
[2020-10-26] MEDS: metoprolol tartrate 50 mg Tablet PO (21:10)
[2020-10-27] VITALS (11 sets, daily range): BP systolic 92–132; BP diastolic 70–92; PULSE 77–110; RESP 16–24; TEMP 36.6–36.8; O2SAT 93–96
[2020-10-27] MEDS: aspirin 81 mg EC Tablet PO (05:08)
[2020-10-27 07:15] LABS: Blood Urea Nitrogen 17 mg/dL (8-23); Calcium 9.1 mg/dL (8.5-10.5); Carbon Dioxide 26 mmol/L (22-29); Chloride 96 mmol/L (98-107); Creatinine Clr Calc Pharmacy 57.4532; Glucose 147 mg/dL (65-115); Osmolality Calculated 284 mOsm/kg (285-295); Sodium 135 mmol/L (136-145)
[2020-10-27] MEDS: metoprolol tartrate 50 mg Tablet PO ×2 (08:40→20:55)
[2020-10-27] MEDS: apixaban 5 mg Tablet PO ×2 (08:40→20:57)
--- NOTE | 2020-10-27 10:26 | PM.CONSULT ---
Providers/Reason For Consult Consulting Physican/Specialty*: SARA Angelo MD/cardiology Reason for Consult*: Atrial fibrillation with rapid ventricular rate/low blood pressure Attending Physician: Ponce Hein Primary Care Provider: Bryan Seay DO History of Present Illness History of Present Illness Ilana Lau is a 74 year old female with no significant past medical history, except for essential benign hypertension, is admitted to the hospital through the emergency room where she presented with complaints of new onset of palpitation and chest discomfort. She was found to be in atrial fibrillation rapid ventricular rate. She was started on IV Cardizem for rate control. Since there was no significant improvement, she was started on metoprolol by mouth. Even after this, she continued to be in atrial fibrillation rapid ventricular rate. Cardiology consult is requested for further cardiac evaluation recommendations. This patient has no previous history for any coronary artery disease, myocardial infarction or congestive heart failure. Her blood pressure has been staying in the normal range with medications over the years. Yesterday all of a sudden, she started having some wheezing of pounding in the chest associate with pain. The pain was radiating across the chest and also to the back between the shoulder blades. She graded the intensity of the pain as moderate. She may have had some shortness of breath. No nausea, sweating, vomiting, dizziness or syncopal episodes. Because of the persistence of the symptoms, she was brought to the hospital. No fever or chills. No cough. No other specific complaints. She has no previous history for any coronary artery disease or myocardial infarction. No history for diabetes or dyslipidemia. No bleeding disorders. Her father had some heart problems, details are not available. She used to smoke a pack a day for 20 years or so which she quit 12 years ago. No alcohol abuse or substance abuse. She is exposed to passive smoking. Review of Systems Narrative: CONSTITUTIONAL: No fever or chills. EYES: No blurring of vision or other visual disturbances lately. ENT: No hoarseness of voice, auditory disturbances or sore throat. CARDIOVASCULAR: As mentioned above. RESPIRATORY: No significant cough. GASTROINTESTINAL: No hematemesis or melena. GENITOURINARY: No dysuria or hematuria. INTEGUMENTARY: No skin rashes or history of skin cancer. NEURO: No transient ischemic attacks or amaurosis. PSYCHIATRIC: No history of psychosis or major depression. HEMATOLOGIC: No bleeding disorders or significant anemia. ENDOCRINE: No history of polyuria or polydipsia. MUSCULOSKELETAL: No recent joint pain or swelling. ALLERGY/IMMUNOLOGY: As mentioned above. Meds/Allergies Home Medications and Allergies Home Medications Medication Instructions Recorded Confirmed Last Taken Type [place] 3 1 cap PO QAM 10/24/20 10/24/20 10/24/20 History Vitamin D3 1 cap PO QAM 10/24/20 10/24/20 10/24/20 History ascorbic acid (vitamin C) [Vitamin 500 mg PO DAILY 10/24/20 10/24/20 10/24/20 History C] aspirin [Aspir-81] 81 mg PO QAM 10/24/20 10/24/20 10/24/20 History lisinopril-hydrochlorothiazide 1 tab PO QAM 10/24/20 10/24/20 10/24/20 05:30 History multivitamin 1 tab PO QAM 10/24/20 10/24/20 10/24/20 History vitamin B complex [Super B Complex] 1 tab PO QAM 10/24/20 10/24/20 10/24/20 History Allergies Allergy/AdvReac Type Severity Reaction Status Date / Time atorvastatin [From Lipitor] Allergy ADR-Muscle Verified 10/24/20 18:33 Pain Current Medications Current Medications Generic Name Dose Route Start Last Admin Trade Name Freq PRN Reason Stop Dose Admin Apixaban 5 mg 10/24/20 21:14 10/27/20 08:40 Apixaban 5 Mg Tablet PO 5 mg BID@0900,2100 RETA Administration Aspirin 81 mg 10/25/20 06:00 10/27/20 05:08 Aspirin 81 Mg Ec Tablet PO 81 mg QAM RETA Administration Magnesium Hydroxide 30 ml 10/26/20 14:45 10/26/20 15:10 Magnesium Hydroxide 30 Ml Udc PO 30 ml DAILY PRN Administration CONSTIPATION Metoprolol Tartrate 50 mg 10/26/20 21:00 10/27/20 08:40 Metoprolol Tartrate 50 Mg Tablet PO 50 mg BID@0900,2100 RETA Administration Morphine Sulfate 2 mg 10/24/20 21:14 10/25/20 18:41 Morphine 4 Mg/Ml Sdv 1 Ml IVP 2 mg Q4H PRN Administration SEVERE PAIN PFSH Acute PFSH: Medical History (Updated 10/27/20 @ 20:38 by Yazan Angelo MD) Hypertension Surgical History (Updated 10/24/20 @ 21:00 by Katherine Seaman MD) H/O thyroidectomy H/O: hysterectomy Hx of appendectomy Family History (Updated 10/24/20 @ 21:00 by Katherine Seaman MD) Denies family history of Diabetes Hyperlipidemia Social History (Updated 10/24/20 @ 21:01 by Katherine Seaman MD) Smoking and tobacco status: former smoker Alcohol intake: current Alcohol intake frequency: holidays/special occasions only Substance/Drug Use: never Household members: friend(s) Housing: House Vitals/I&O/Wt Last Vital Signs Temp 97.8 F 10/27/20 07:15 Pulse 110 H 10/27/20 07:15 Resp 20 H 10/27/20 07:15 BP 115/77 10/27/20 07:15 Pulse Ox 94 10/27/20 07:15 10/26/20 10/27/20 10/27/20 22:59 06:59 14:59 Intake Total 360 / 1054 1000 / 2054 240 / 240 Output Total 750 / 750 Balance 360 / 1054 250 / 1304 240 / 240 Physical Exam Narrative: EXAM NARRATIVE: GENERAL: The patient is alert and oriented times three. Not in any acute distress. HEENT: No significant pallor, icterus or lymphadenopathy. Pupils are symmetrical oral cavity: There are no mucous membrane lesions. Funduscopic examination: The fundus is not visualized NECK: Trachea appears to be central. No masses noted. No JVD or thyromegaly appreciated. No carotid bruit. RESPIRATORY: Chest is symmetrical. No intercostals muscle retraction or any accessory muscle activation. There is no chest wall tenderness. Breath sounds are heard bilaterally. No rales or rhonchi heard. No evidence of any consolidation. BREASTS: Deferred. HEART: The PMI could not be palpated. No palpable precordial events. The first heart sound is variable. Second heart sound is normal. No S3 or S4 heard. No pericardial rub or any click heard. ABDOMEN: No vessel pulsations or distention. No tenderness. No organomegaly appreciated. No abdominal bruit. Bowel sounds are normally heard. : Deferred. RECTAL: Deferred. LYMPHATIC: No lymphadenopathy noted in the neck or groin. EXTREMITIES: No edema or cyanosis. No clubbing. The peripheral pulses are palpable but is weak bilaterally. MUSCULOSKELETAL: No acute joint deformities or swelling. SKIN: There are no significant scars or skin rash noted. NEUROPSYCHIATRIC: The patient is alert and oriented x3. Appears to be in a good mood. The higher functions are grossly within normal limits. No tremors or rigidity noted. Data Labs: Other Labs: Laboratory Last Values WBC 9.7 10^3/uL (4.0- 10.0) 10/24/20 18:30 RBC 4.30 10^6/uL (4.1 -5.3) 10/24/20 18:30 Hgb 13.3 g/dL (11.5-1 5.3) 10/24/20 18: Hct 40.5 % (37.0-47.0 ) 10/24/20 18:30 MCV 94.2 fL (81-99) 10/24/20 18: MCH 30.9 pg (28.0-34. 0) 10/24/20 18: MCHC 32.8 g/dL (30.0-3 6.0) 10/24/20 18: RDW 12.5 % (12.1-15.1 ) 10/24/20 18: Plt Count 291 10^3/cmm (130 -400) 10/24/20 18: MPV 8.9 fL (7.4-10.4) 10/24/20 18:30 Neut % (Auto) 65.8 % 10/24/20 18: Lymph % (Auto) 23.9 % 10/24/20 18: [place] % (Auto) 8.2 % 10/24/20 18:30 Eos % (Auto) 0.8 % 10/24/20 18: Baso % (Auto) 1.1 % 10/24/20 18:30 Neut # (Auto) 6.35 10^3/uL (1.8 -7.7) 10/24/20 18: Lymph # (Auto) 2.3 10^3/uL (0.8- 4.8) 10/24/20 18:30 [place] # (Auto) 0.8 10^3/uL (0.2- 0.9) 10/24/20 18:30 Eos # (Auto) 0.1 10^3/uL (0.0- 0.8) 10/24/20 18:30 Baso # (Auto) 0.1 10^3/uL (0.0- 0.1) 10/24/20 18:30 Nucleated RBC % (a uto) 0 % 10/24/20 18:30 Nucleated RBCs # 0.0 /100WBC 10/24/20 18:30 D-Dimer 0.41 ug/mIFEU (0- 0.59) 10/24/20 18:30 Sodium 135 mmol/L (136-1 45) L 10/27/20 05:46 Potassium 4.0 mmol/L (3.5-5 .1) 10/27/20 05:46 Chloride 96 mmol/L (98-107 ) L 10/27/20 05:46 Carbon Dioxide 26 mmol/L (22-29) 10/27/20 05:46 Anion Gap 17.0 (5-19) 10/27/20 05:46 BUN 17 mg/dL (8-23) 10/27/20 05:46 Creatinine 0.8 mg/dL (0.5-0. 9) 10/27/20 05:46 GFR Calculation Not Reportable 10/27/20 05:46 Glucose 147 mg/dL (65-115 ) H 10/27/20 05:46 Calculated Osmolal ity 284 mOsm/kg (285- 295) L 10/27/20 05:46 Calcium 9.1 mg/dL (8.5-10 .5) 10/27/20 05:46 Magnesium 2.0 mg/dL (1.7-2. 3) 10/24/20 20:25 Total Bilirubin 0.4 mg/dL (0.15-1 .2) 10/24/20 18:30 AST 19 U/L (0-32) 10/24/20 18:30 ALT 14 U/L (0-33) 10/24/20 18:30 Alkaline Phosphata se 56 IU/L (35-105) 10/24/20 18:30 Troponin T Baselin e 11 ng/L (0-10) H 10/24/20 18:30 Troponin T 120 Min [place] 8.66 ng/L (0-10) 10/24/20 20:25 Delta Troponin T -2.34 ABS# (0-10) L 10/24/20 20:25 Troponin T Hi Sens 6Hr 10.01 ng/L (0-10) H 10/24/20 00:38 Troponin T Hi Sens 6Hr Delta 1.35 ng/L (0-12) 10/24/20 00:38 NT-Pro-B Natriuret Pep 1272 pg/mL (0-450 ) H 10/24/20 18:30 Total Protein 7.3 g/dL (6.6-8.7 ) 10/24/20 18:30 Albumin 4.8 g/dL (3.5-5.2 ) 10/24/20 18:30 Globulin 2.5 g/dL (1.3-4.6 ) 10/24/20 18:30 TSH 2.85 uIU/mL (0.27 -4.20) 10/24/20 20:25 Urine Color Yellow (Yellow) 10/25/20 12:30 Urine Appearance Sl hazy (CLEAR) 10/25/20 12:30 Urine pH 7 (5-7) 10/25/20 12:30 Ur Specific Gravit y 1.000 (1.005-1.0 30) L 10/25/20 12:30 Urine Protein Neg (Negative) 10/25/20 12:30 Urine Glucose (UA) Norm (Normal) 10/25/20 12:30 Urine Ketones Negative (Negati ve) 10/25/20 12:30 Urine Blood Trace (Negative) H 10/25/20 12:30 Urine Nitrate Negative (Negati ve) 10/25/20 12:30 Urine Bilirubin Neg (Negative) 10/25/20 12:30 Urine Urobilinogen Norm mg/dL (Negat blu) 10/25/20 12:30 Ur Leukocyte Bharti ase 1+ (Negative) H 10/25/20 12:30 Urine RBC 5-10 /hpf (0-2) H 10/25/20 12:30 Urine WBC 10-15 /hpf (0-5) H 10/25/20 12:30 Ur Squamous Epith Cells 5-10 /hpf (0-5) H 10/25/20 12:30 Amorphous Sediment Not Reportable 10/25/20 12:30 Urine Bacteria 2+ /hpf (NONE) H 10/25/20 12:30 Micro: Micro: Microbiology 10/25/20 12:30 Urine Culture - Fi nal Urine,Clean Catch Imaging^: CT Chest: Radiologist's impression: 1. Mild cardiomegaly is noted. 2. Mild fibrosis versus atelectasis in the bilateral lower lobes and the inferior lingula. No consolidative pulmonary infiltrate noted. 3. Punctate pleural calcification left lower posterior thorax. Mild pleural thickening. No pleural effusion. No pneumothorax. 4. No acute cardiopulmonary disease demonstrated. Echo: My impression: Cardiogram on 10/25/2020 revealed Normal LV size ejection fraction of 65%. No gross wall motion of normalities. Mild concentric left ventricular hypertrophy. Thickened aortic and mitral valves. Mild biatrial enlargement. Trace to mild tricuspid valve regurgitation. Trace mitral and aortic valve regurgitation. Estimated pulmonary artery peak systolic pressure of 30 mmHg. Compared to the previous study from 05/21/2020, there may not be a significant EKG^: EKG 1: My Interpretation: On 10/24/2020 revealed Atrial fibrillation with a rate of 94 bpm. Diffuse nonspecific T wave changes. A&P Assessment and plan (1) New onset atrial fibrillation: Patient seems to have a new onset of atrial fibrillation with rapid ventricular rate. The rate still remains uncontrolled even after IV Cardizem and p.o. metoprolol. I may start her on propafenone 150 mg p.o. 3 times daily. She has no evidence of any myocardial injury. Echocardiogram revealed normal LV size and ejection fraction with no significant wall motion normalities. He has some features of hypertensive heart disease. He has no evidence of pulmonary embolism. Limited BNP most likely from the atrial fibrillation. Status: Acute (2) Chest pain: Her chest pain is somewhat atypical. However it seems to be associated with the tachyarrhythmia. Possibility of underlying coronary disease causing the chest pain is a consideration. The EKG changes are nonspecific. For further evaluation of her symptoms, a myocardial perfusion imaging would be appropriate. This was discussed with the patient in detail which he understood well and consented to proceed. We may go ahead and schedule the test tomorrow. Status: Acute Qualifiers: Chest pain type: other chest pain Qualified Code(s): R07.89 - Other chest pain (3) Benign essential hypertension with target blood pressure below 140/90: Currently she is normotensive. She has no history for any hypertensive emergencies. I may continue on the current medications. Since she is on multiple AV varsha blocking agents with the antihypertensive properties, will be closely monitoring her blood pressure and heart rate . Status: Acute (4) Abnormal CT of the chest: She has some features of chronic inflammatory changes in the chest CT. She also has a history of smoking abuse. The clinical significance is not clear. It might be appropriate to have further evaluation by pulmonology service, may be as an outpatient. Status: Acute Additional A&P Information The other problems are We will go ahead and schedule the patient for a myocardial perfusion imaging tomorrow. Based on the clinical progress and the results of the above, further recommendations will be made. Thank you for the opportunity to evaluate this patient and make these recommendations. Consult Attestations Medical Necessity Statement: Patient requires continued hospital stay for close monitoring and further management Coding Level of Care Code Acute Traffic Enumerator for [facility] Diagnoses New onset atrial fibrillation I48.91 Chest pain R07.89 Chest pain type: other chest pain Benign essential hypertension with target blood pressure below 140/[address] of the chest R93.89
--- NOTE | 2020-10-27 10:40 | PC.NURSE ---
Dr Angelo on unit for assessment; verbal orders received and read back to give Digoxin 0.25mg IVP x 1 now
[2020-10-27] MEDS: digoxin 250 mcg/ml INJ 2 mL IVP (11:07)
[2020-10-27] MEDS: propafenone 150 mg Tablet PO ×2 (15:19→20:56)
--- NOTE | 2020-10-27 22:46 | PM.PN ---
Subjective Subjective: Interval history: Currently she is doing little better. Earlier today was having quite significant tachycardia that she noticed on her monitor when standing up. 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 Currently no chest pain. Pleuritic discomfort perhaps slightly better. Vitals/I&O/Wt Last Vital Signs Temp 98.3 F 10/27/20 19:48 Pulse 79 10/27/20 19:48 Resp 24 H 10/27/20 19:48 BP 124/71 10/27/20 19:48 Pulse Ox 94 10/27/20 19:48 10/27/20 10/27/20 10/27/20 06:59 14:59 22:59 Intake Total 1000 / 2054 480 / 480 Output Total 750 / 750 900 / 900 Balance 250 / 1304 480 / 480 -900 / -420 Physical Exam Narrative: EXAM NARRATIVE: Visited by daughter at bedside. Const: COMMON NORMALS: no acute distress and patient oriented x3 GENERAL APPEARANCE: cooperative and comfortable ORIENTATION/CONSCIOUSNESS: Yes awake HENMT: COMMON NORMALS: oropharynx normal Neck/C-Spine: COMMON NORMALS: no JVD Resp: COMMON NORMALS: normal respiratory effort and clear to auscultation bilaterally AUSCULTATION: clear to auscultation bilaterally Cardio: COMMON NORMALS: no JVD, S1 normal heart sound present, S2 normal heart sound present and No murmurs present (Cardio) RHYTHM: abnormal rhythm irregularly irregular HEART SOUNDS: S1 normal heart sound present and S2 normal heart sound present GI: COMMON NORMALS: Normal to inspection, nondistended, normoactive bowel sounds present, Soft to palpation and non-tender PALPATION: Yes Soft to palpation Extremity: COMMON NORMALS: no joint enlargement and no pedal edema Neuro: COMMON NORMALS: patient oriented x3 and moves all extremities Skin: COMMON NORMALS: no rashes or lesions noted GENERAL SKIN EXAM: no rashes or lesions noted Data : 10/24/20 18:30 10/27/20 05:46 Micro: Microbiology 10/25/20 12:30 Urine Culture - Final Urine,Clean Catch A&P Assessment and plan (1) Atrial fibrillation: Requested cardiology consultation due to difficult to control A. fib with RVR, despite increasing metoprolol dose, still tachycardic, blood pressure soft. Did not respond to Cardizem. Appreciate cardiology recommendations. She is started on propafenone. Plan for assessment by stress testing tomorrow. Continue anticoagulation. Echocardiogram with normal EF, no gross wall motion abnormalities. Mild concentric LVH. Thickened aortic and mitral valves. Biatrial enlargement. Mild TR, trace MVR and AVR. Continue telemetry monitoring. Magnesium, potassium are good. TSH normal. Denies chest pain or pressure. (Only pleuritic discomfort). VQ scan low probability for PE. Status: Acute Qualifiers: Atrial fibrillation type: unspecified Qualified Code(s): I48.91 - Unspecified atrial fibrillation (2) Chest pain: Assessment by stress testing tomorrow. Today appears perhaps slightly better. Perhaps some response to ibuprofen. Consider follow-up imaging for pleural thickening. Consider follow-up with pulmonology. Pleuritic discomfort, today does not describe it as pain, states it is more like a rest of respiration, and feels like cannot take deep breaths. CT chest noted appearance of bilateral pulmonary fibrosis in lower lobes. Punctate pleural calcifications left lower posterior thorax. Mild pleural thickening. Troponin without elevation suggest acute TX. VQ low probability for PE. Status: Acute Qualifiers: Chest pain type: other chest pain Qualified Code(s): R07.89 - Other chest pain Attestations Medical Necessity Statement*: Continue admission for assessment management of difficult to control A. fib with RVR, additional assessment by stress testing for chest pain recommended by cardiology. 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
--- NOTE | 2020-10-28 00:08 | NMCV_ITS ---
NM mike perf SPECT r/s* [id number] Ilana Lau Age: 74 Gender: F : 1945 Exam Date: 10/28/2020 00:08 Ordering Phys: Yazan Angelo MD ([email or web address]) Technologist: LD Sheehan Exam Location: [facility] Indications: HEART ISSUES, HEAD ACHE STRESS TEST Please see separate stress test report in [facility] for full findings IMAGE PROTOCOL Rest/Stress 1 Lexiscan Day Radiopharmaceutical Dose (mCi) Administration Site Administered by Rest: Tc-99m 11.0 IV LD Sheehan Sestamibi Stress:Tc-99m 32.6 IV LD Brian Sestamibi Rest: 28-Oct-2020 60 Discovery 630 Stress: 28-Oct-2020 30 Discovery 630 0.4mg Lexiscan. Supine position only as patient was unable to lay prone. SPECT RESULTS Technical Quality: Good Raw Data Analysis: Normal Image Corrections: No attenuation or motion correction applied Summed Stress Score: 1 Summed Rest Score: 1 Summed Difference Score: 1 PERFUSION FINDINGS Small area of slightly decreased tracer uptake in the LV apex with reversibility, based on Polar plot. Based on the SPECT imaging, no sniffing and reversibility was noted. FUNCTIONAL RESULTS (calculated via Gated SPECT) Stress Image LV EF (%): 46 Stress EDV (mL):67 TID: 1.12 Stress ESV (mL):36 FUNCTIONAL FINDINGS: Segmental wall motion analysis revealing diffuse hypokinesia of the LV apex. IMPRESSIONS 1. A small area of inconsistent reversibility in the LV apex, most likely artifactual. 2. Slightly diminished ejection fraction of 46%. 3. LV wall motion analysis revealing mild diffuse hypokinesia of the LV apex 4. Normal LV volume. Possibly no significant coronary ischemia, based on the above findings Dr Yazan Angelo MD [facility] (Electronically Signed) Final Date: 28 October 2020 14:06 S
[2020-10-28 00:35] VITALS: BP 93/60; PULSE 71; RESP 14; TEMP 36.6; O2SAT 96
[2020-10-28 04:00] VITALS: BP 123/72; PULSE 71; RESP 22; TEMP 36.8; O2SAT 97
[2020-10-28 04:28] LABS: Anion Gap 12.5 (5-19); Blood Urea Nitrogen 19 mg/dL (8-23); Carbon Dioxide 28 mmol/L (22-29); Chloride 100 mmol/L (98-107); Creatinine Clr Calc Pharmacy 57.4532; Glucose 96 mg/dL (65-115); Osmolality Calculated 284 mOsm/kg (285-295); Potassium 4.5 mmol/L (3.5-5.1); Sodium 136 mmol/L (136-145)
[2020-10-28] MEDS: aspirin 81 mg EC Tablet PO (05:34)
[2020-10-28 06:00] VITALS: PULSE 85
--- NOTE | 2020-10-28 07:06 | ECG_ITS ---
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 Interpretive Statements NAME OF STUDY: LEXISCAN SESTAMIBI STRESS TEST INDICATION: Chest Pain, PROCEDURE: At the baseline, the EKG revealed atrial fibrillation with a controlled ventricular response rate. Diffuse nonspecific T wave changes. Some nonspecific ST changes in the inferolateral leads. The baseline blood pressure was 131/102 mm Hg with a heart rate of 93 beats/min. Lexiscan was infused over a period of 20 seconds. A total of 0.4 milligrams of Lexiscan was infused. The stress phase was continued for a total of 5 minutes. Heart rate at the end of the stress phase was 89 with a blood pressure 121/88. The EKG at the peak infusion revealed no significant changes. Sestamibi was injected 20 seconds after the Lexiscan infusion. Blood pressure at the end of the recovery phase was 126/90 with a heart rate of 99 per minute. CONCLUSION: 1. No significant EKG changes with the LexiScan infusion 2. No LexiScan induced chest pain or cardiac arrhythmia 3. Normal blood pressure and heart rate response 4. Sestamibi/sestamibi perfusion scan pending; see separate report. Electronically Signed On 10-31-2020 8:22:34 CDT by Yazan Angelo M.D. [id number]
[2020-10-28 07:26] VITALS: BP 130/68; PULSE 83; RESP 18; TEMP 36.7; O2SAT 96
[2020-10-28] MEDS: metoprolol tartrate 50 mg Tablet PO (08:51)
[2020-10-28] MEDS: apixaban 5 mg Tablet PO (08:51)
[2020-10-28] MEDS: propafenone 150 mg Tablet PO ×2 (08:52→15:45)
--- NOTE | 2020-10-28 08:52 | P.PN_ITS ---
Subjective Subjective: Interval history: Patient is feeling much better. She is still in atrial fibrillation but with controlled ventricular response rate. She had a myocardial perfusion imaging today. Was found to have a small area of inconsistent reversible defect in the LV apex, most likely artifactual. Patient denies any chest pain or chest tightness. No unusual shortness of breath. Medications: Reviewed: Yes Medication Review Details: Current Medications Acetaminophen (Acetaminophen 325 Mg Tablet) 650 mg PO Q6H PRN PRN Reason: MILD PAIN Aminophylline (Aminophylline 25 Mg/Ml Sdv 10 Ml) 25 mg IVP Q2M PRN PRN Reason: see dose instructions Stop: 10/29/20 07:05 Apixaban (Apixaban 5 Mg Tablet) 5 mg PO BID@0900,2100 [facility] Last Admin: 10/28/20 08:51 Dose: 5 mg Documented by: Aspirin (Aspirin 81 Mg Ec Tablet) 81 mg PO QAM [facility] Last Admin: 10/28/20 05:34 Dose: 81 mg Documented by: Diltiazem HCl (Diltiazem 30 Mg Tablet) 30 mg PO TID [facility] Hydrochlorothiazide (Hydrochlorothiazide 25 Mg Tablet) 12.5 mg PO DAILY [facility] Ibuprofen (Ibuprofen 200 Mg Tablet) 400 mg PO Q6H PRN PRN Reason: MODERATE PAIN Lisinopril (Lisinopril 20 Mg Tablet) 20 mg PO DAILY [facility] Magnesium Hydroxide (Magnesium Hydroxide 30 Ml Udc) 30 ml PO DAILY PRN PRN Reason: CONSTIPATION Last Admin: 10/26/20 15:10 Dose: 30 ml Documented by: Metoprolol Tartrate (Metoprolol Tartrate 50 Mg Tablet) 50 mg PO BID@0900,2100 [facility] Last Admin: 10/28/20 08:51 Dose: 50 mg Documented by: Morphine Sulfate (Morphine 4 Mg/Ml Sdv 1 Ml) 2 mg IVP Q4H PRN PRN Reason: SEVERE PAIN Last Admin: 10/25/20 18:41 Dose: 2 mg Documented by: Nitroglycerin (Nitroglycerin 0.4 Mg Sublingual Tablet) 0.4 mg SUBLINGUAL Q5M PRN PRN Reason: CHEST PAIN Stop: 10/29/20 07:05 Ondansetron HCl (Ondansetron 2 Mg/Ml Sdv 2 Ml) 4 mg IVP Q2M PRN PRN Reason: NAUSEA Propafenone HCl (Propafenone 150 Mg Tablet) 150 mg PO TID [facility] Last Admin: 10/28/20 08:52 Dose: 150 mg Documented by: Regadenoson (Regadenoson 0.4 Mg/5 Ml Syringe) 0.4 mg IVP ONCE PRN PRN Reason: Lexiscan Stress Test Vitals/I&O/Wt Last Vital Signs Temp 98.0 F 10/28/20 07:26 Pulse 83 10/28/20 07:26 Resp 18 10/28/20 07:26 BP 130/68 10/28/20 07:26 Pulse Ox 96 10/28/20 07:26 10/27/20 10/28/20 10/28/20 22:59 06:59 14:59 Output Total 900 / 900 350 / 1250 Balance -900 / -420 -350 / -770 Physical Exam Narrative: EXAM NARRATIVE: GENERAL: The patient is alert and oriented times three. Not in any acute distress. HEENT: No significant pallor, icterus or lymphadenopathy. Pupils are symm etrical oral cavity: There are no mucous membrane lesions. NECK: Trachea appears to be central. No masses noted. No JVD or thyromegaly appreciated. No carotid bruit. RESPIRATORY: Chest is symmetrical. No intercostals muscle retraction or any accessory muscle activation. There is no chest wall tenderness. Breath sounds are heard bilaterally. No rales or rhonchi heard. No evidence of any consolidati on. BREASTS: Deferred. HEART: The PMI could not be palpated. No palpable precordial events. The first heart sound is variable. Second heart sound is normal. No S3 or S4 heard. No pericardial rub or any click heard. ABDOMEN: No vessel pulsations or distention. No tenderness. No organomegaly appreciated. No abdominal bruit. Bowel sounds are normally heard. : Deferred. RECTAL: Deferred. LYMPHATIC: No lymphadenopathy noted in the neck or groin. EXTREMITIES: No edema or cyanosis. No clubbing. MUSCULOSKELETAL: No acute joint deformities or swelling. SKIN: There are no significant scars or skin rash noted. NEUROPSYCHIATRIC: The patient is alert and oriented x3. Appears to be in a good mood. The higher functions are grossly within normal limits. No tremors or rigidity noted. Data : 10/24/20 18:30 10/28/20 03:35 Other Labs: Laboratory Last Values WBC 9.7 10^3/uL (4.0-10.0) 10/24/20 18: RBC 4.30 10^6/uL (4.1-5.3) 10/24/20 18: Hgb 13.3 g/dL (11.5-15.3) 10/24/20 18: Hct 40.5 % (37.0-47.0) 10/24/20 18: MCV 94.2 fL (81-99) 10/24/20 18: MCH 30.9 pg (28.0-34.0) 10/24/20 18: MCHC 32.8 g/dL (30.0-36.0) 10/24/20 18: RDW 12.5 % (12.1-15.1) 10/24/20 18: Plt Count 291 10^3/cmm (130-400) 10/24/20 18: MPV 8.9 fL (7.4-10.4) 10/24/20 18: Neut % (Auto) 65.8 % 10/24/20 18: Lymph % (Auto) 23.9 % 10/24/20 18:30 [place] % (Auto) 8.2 % 10/24/20 18: Eos % (Auto) 0.8 % 10/24/20 18: Baso % (Auto) 1.1 % 10/24/20 18: Neut # (Auto) 6.35 10^3/uL (1.8-7.7) 10/24/20 18: Lymph # (Auto) 2.3 10^3/uL (0.8-4.8) 10/24/20 18:30 [place] # (Auto) 0.8 10^3/uL (0.2-0.9) 10/24/20 18: Eos # (Auto) 0.1 10^3/uL (0.0-0.8) 10/24/20 18: Baso # (Auto) 0.1 10^3/uL (0.0-0.1) 10/24/20 18: Nucleated RBC % (auto) 0 % 10/24/20 18: Nucleated RBCs # 0.0 /100WBC 10/24/20 18:30 D-Dimer 0.41 ug/mIFEU (0-0.59) 10/24/20 18:30 Sodium 136 mmol/L (136-145) 10/28/20 03:35 Potassium 4.5 mmol/L (3.5-5.1) 10/28/20 03:35 Chloride 100 mmol/L (98-107) 10/28/20 03:35 Carbon Dioxide 28 mmol/L (22-29) 10/28/20 03:35 Anion Gap 12.5 (5-19) 10/28/20 03:35 BUN 19 mg/dL (8-23) 10/28/20 03:35 Creatinine 0.7 mg/dL (0.5-0.9) 10/28/20 03:35 GFR Calculation Not Reportable 10/28/20 03:35 Glucose 96 mg/dL (65-115) 10/28/20 03:35 Calculated Osmolality 284 mOsm/kg (285-295) L 10/28/20 03:35 Calcium 9.0 mg/dL (8.5-10.5) 10/28/20 03:35 Magnesium 2.0 mg/dL (1.7-2.3) 10/24/20 20:25 Total Bilirubin 0.4 mg/dL (0.15-1.2) 10/24/20 18:30 AST 19 U/L (0-32) 10/24/20 18:30 ALT 14 U/L (0-33) 10/24/20 18:30 Alkaline Phosphatase 56 IU/L (35-105) 10/24/20 18:30 Troponin T Baseline 11 ng/L (0-10) H 10/24/20 18:30 Troponin T 120 Minute 8.66 ng/L (0-10) 10/24/20 20:25 Delta Troponin T -2.34 ABS# (0-10) L 10/24/20 20:25 Troponin T Hi Sens 6Hr 10.01 ng/L (0-10) H 10/24/20 00:38 Troponin T Hi Sens 6Hr Delta 1.35 ng/L (0-12) 10/24/20 00:38 NT-Pro-B Natriuret Pep 1272 pg/mL (0-450) H 10/24/20 18:30 Total Protein 7.3 g/dL (6.6-8.7) 10/24/20 18:30 Albumin 4.8 g/dL (3.5-5.2) 10/24/20 18:30 Globulin 2.5 g/dL (1.3-4.6) 10/24/20 18:30 TSH 2.85 uIU/mL (0.27-4.20) 10/24/20 20:25 Urine Color Yellow (Yellow) 10/25/20 12:30 Urine Appearance Sl hazy (CLEAR) 10/25/20 12:30 Urine pH 7 (5-7) 10/25/20 12:30 Ur Specific [place] 1.000 (1.005-1.030) L 10/25/20 12:30 Urine Protein Neg (Negative) 10/25/20 12:30 Urine Glucose (UA) Norm (Normal) 10/25/20 12:30 Urine Ketones Negative (Negative) 10/25/20 12:30 Urine Blood Trace (Negative) H 10/25/20 12:30 Urine Nitrate Negative (Negative) 10/25/20 12:30 Urine Bilirubin Neg (Negative) 10/25/20 12:30 Urine Urobilinogen Norm mg/dL (Negative) 10/25/20 12:30 Ur Leukocyte Esterase 1+ (Negative) H 10/25/20 12:30 Urine RBC 5-10 /hpf (0-2) H 10/25/20 12:30 Urine WBC 10-15 /hpf (0-5) H 10/25/20 12:30 Ur Squamous Epith Cells 5-10 /hpf (0-5) H 10/25/20 12:30 Amorphous Sediment Not Reportable 10/25/20 12:30 Urine Bacteria 2+ /hpf (NONE) H 10/25/20 12:30 Micro: Microbiology 10/25/20 12:30 Urine Culture - Final Urine,Clean Catch A&P Assessment and plan (1) New onset atrial fibrillation: The patient seems to be doing okay with the atrial fibrillation controlled ventricular response rate. At this point, I may continue on the current medications. Continue on oral anticoagulation. Status: Acute (2) Chest pain: Since the patient has no significant chest pain and also since the area of ischemia is very small and consistent, it was thought to be appropriate to continue the medical treatment with no further interventions. Status: Acute Qualifiers: Chest pain type: other chest pain Qualified Code(s): R07.89 - Other chest pain (3) Benign essential hypertension with target blood pressure below 140/90: May continue on the current medications. Status: Acute (4) Abnormal CT of the chest: She has some features of chronic inflammatory changes in the chest CT. She also has a history of smoking abuse. The clinical significance is not clear. It might be appropriate to have further evaluation by pulmonology service, may be as an outpatient. Status: Acute Additional A&P Information If the patient continues remain stable, may be discharged home today. She may be kept on the current dose of propafenone. She will be seen in the clinic in a week. If she continues to remain afebrile of atrial fibrillation, we may discontinue the propafenone at that point. Based on the patient's clinical progress, further management decisions will be made. Attestations Medical Necessity Statement*: Discussed with the Dr. Moody. 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
--- NOTE | 2020-10-28 09:37 | PC.SOCIAL ---
IMM completed 10/28/20 @ 3639. Copy of rights given to pt.
[2020-10-28] MEDS: regadenoson 0.4 Mg/5 ml Syringe IVP (12:01)
[2020-10-28 12:38] VITALS: BP 126/90; PULSE 90
--- NOTE | 2020-10-28 12:49 | PC.NURSE ---
A NEW 24G PIV TO THE LEFT HAND WAS INSERTED BY [facility]CH. THIS NURSE ATTEMPTED X 2 WITHOUT SUCCESS.
--- NOTE | 2020-10-28 12:50 | PC.NURSE ---
Patient left the floor for her stress test around 11:08 via wheelchair. Patients VS were stable.
--- NOTE | 2020-10-28 14:39 | PM.DCS ---
Discharge Providers Date of Admission: 10/25/20 10:32 Date of Discharge: October 28, 2020 Attending Provider at Admission: Katherine Seaman MD Attending Provider at Discharge: Dick Moody MD Primary Care Provider: Bryan Seay DO Diagnoses at Discharge Discharge Diagnosis (1) New onset atrial fibrillation: Status: Acute (2) Chest pain: Status: Acute Qualifiers: Chest pain type: other chest pain Qualified Code(s): R07.89 - Other chest pain (3) Benign essential hypertension with target blood pressure below 140/90: Status: Acute (4) Abnormal CT of the chest: Status: Acute Reason for Visit Reason for Visit: HEART ISSUES, HEADACHE Hospital Course Hospital Course This is a 74-year-old female with a past medical history of hypertension, who presented [facility] for chest discomfort Patient was admitted to [facility] for chest pain and A. fib with RVR For new onset A. fib with RVR, was difficult to control with IV Cardizem p.o. metoprolol, switched over to propafenone metoprolol, she tolerated it well. Discharged on propafenone 150 3 times daily, trial 50 twice daily, heart rates on discharge were 90-100, atrial fibrillation. Echocardiogram shows normal LV size and ejection fraction, no significant wall motion abnormalities. For anticoagulation she was discharged on Eliquis 5 mg twice daily, recheck hemoglobin in 1 week, monitor for bloody or black stools or fall if so go to the emergency room. For patient's chest pain, it was atypical, VQ scan was low probability of pulmonary emboli, underwent cardiac stress testing, which showed low probability obstructive CAD, mild diffuse hypokinesia of the left ventricle apex. Patient was advised to go to emergency room if she were to have recurrent chest pain, follow-up with Dr. Agnelo in [address] imaging on admission, which showed evidence of mild pulmonary fibrosis, pleural thickening, she should follow-up with Dr. Felix in 1 month. Physical Exam Const: COMMON NORMALS: no acute distress and patient oriented x3 HENMT: COMMON NORMALS: normocephalic HEAD & SCALP: normocephalic Neck/C-Spine: COMMON NORMALS: no JVD Resp: COMMON NORMALS: normal respiratory effort, No retractions, No use of accessory muscles and clear to auscultation bilaterally AUSCULTATION: clear to auscultation bilaterally Cardio: COMMON NORMALS: no JVD, regular rate, regular rhythm, S1 normal heart sound present and S2 normal heart sound present RATE: regular rate RHYTHM: regular rhythm HEART SOUNDS: S1 normal heart sound present and S2 normal heart sound present GI: COMMON NORMALS: Normal to inspection, nondistended, normoactive bowel sounds present, Soft to palpation, non-tender, No hepatosplenomegaly present, no masses and no bruits PALPATION: Yes Soft to palpation and Yes No hepatosplenomegaly present Extremity: COMMON NORMALS: capillary refill normal, no clubbing, cyanosis or edema, no calf tenderness and no pedal edema Neuro: COMMON NORMALS: patient oriented x3 Psych: COMMON NORMALS: mental status grossly normal Discharge Data Data Completed and Pending: Completed Studies During Hospitalization Category Date Time Status CT chest wo con 7 1250 Routine Cat Scan 10/26/20 13:[address] MIBI [Sestamibi Stress Test Reque st Exams 10/28/20 07:06 Draft ] Routine XR chest 1V mau ble [id number] Stat Exams 10/24/20 17:59 Completed NM mike perf SPECT r/s* [id number] Routin e Nuc Med 10/28/20 00:08 Completed NM pul vent and p erfus* [id number] Routi ne Nuc Med 10/25/20 10:28 Completed CV echo complete* [id number] Routine Ultrasound 10/25/20 21:14 Completed Labs from last 24 hours 10/28/20 03:35 Sodium 136 Potassium 4.5 Chloride 100 Carbon Dioxide 28 Anion Gap 12.5 BUN 19 Creatinine 0.7 GFR Calculation Not Reportable Glucose 96 Calculated Osmolal ity 284 L Calcium 9.0 Vitals: Last Vital Signs Temp 98.0 F 10/28/20 07:26 Pulse 90 10/28/20 12:38 Resp 18 10/28/20 07:26 BP 126/90 10/28/20 12:38 Pulse Ox 96 10/28/20 07:26 Discharge Plan Discharge Patient Disposition: Home Condition: Stable Prescriptions: New metoprolol tartrate 50 mg Tablet 50 mg PO BID@0900,2100 30 Days Qty: 60 RF: 0 Eliquis 5 mg Tablet 5 mg PO BID@0900,2100 30 Days Qty: 60 RF: 0 propafenone 150 mg Tablet 150 mg PO TID 30 Days Qty: 90 RF: 0 Continued multivitamin Tablet 1 tab PO QAM RF: 0 Aspir-81 81 mg Tablet,Delayed Release (Dr/Ec) 81 mg PO QAM RF: 0 Vitamin C 500 mg Tablet 500 mg PO DAILY RF: 0 Super B Complex Tablet 1 tab PO QAM RF: 0 [place] 3 1 cap PO QAM RF: 0 Vitamin D3 1 cap PO QAM RF: 0 Discontinued lisinopril-hydrochlorothiazide 20-12.5 mg tablet 1 tab PO QAM RF: 0 Discharge Orders: Discharge Order (Routine); Ordered 10/28/20 Ordered By: Dick Moody Referrals: Yazan Angelo MD [Physician] - 7-10 days (new onset afib) Bryan Seay DO [Primary Care Provider] - Vitaliy Felix MD [Physician] - 1 month (pulmonary fibrosis) Discharge Diet: Cardiac Discharge Activity: Resume usual activity Activity Restrictions/Additional Instructions: -If you have chest pain, palpitations come back to the emergency room -Please stop lisinopril-hydrochlorothiazide -We have discharged on Eliquis 5 mg twice daily, which is a blood thinner: If you were to have bloody or black stools, or major fall go immediately to the emergency room or see primary care -Follow-up with primary care in 1 week for recheck hemoglobin -Follow-up with cardiology in 1 week -Follow-up with pulmonary in 1 month Discharge Attestations Time Spent in Discharge Care*: greater than 30 min Quality Metrics Clinical Quality Measures During this hospital stay, did patient experience: None Coding Level of Care Code Acute [facility] note Diagnoses New onset atrial fibrillation I48.91 Chest pain R07.89 Chest pain type: other chest pain Benign essential hypertension with target blood pressure below 140/[address] of the chest R93.89
--- NOTE | 2020-10-28 15:11 | PC.CHAP ---
Pastoral Care Encounter/Spiritual Assessment Type of Contact [] Declined desktop analyst visit [] Patient/Family/Request visit [] Outpatient visit [] Follow-up visit [] Physician referral [] Code/Alert [x] Routine visit [] Staff referral [] Actively dying [] Patient sleeping [] Family support [] [] Out of room [] Palliative care [] [] Receiving care in room [] Pre-surgical visit [] Trauma [] Long length of stay [] ICU visit [] Other: Relational/Emotional Strength [x] Patient feels connected with others/family/visitors/staff [] Distress [] Loneliness/isolation [] Abandonment Spirituality of Patient [x] Person of Ann [x] Attends Orthodoxy of their Ann [] Believes in Prayer [] Reads Bible or Sikhism materials [] There are Spiritual issues to be addressed Network Planner Interventions [x] Prayer [] Active listening [] Non-anxious presence [] Spiritual/emotional support [] Crisis/trauma care [] Spiritual counseling [] Bereavement support [] Provided bereavement packet [] Provided Bible/devotional materials [] Provided toy/stuffed animal, coloring book to patient or family member [] Provided Communion [] Anointing/[place] [] Salvation [] Completed spiritual assessment [] Other: Impact on Illness or Injury [] Angry [] Fearful [] Anxious [] Often cries [] Exhaustion [] Unable to work [] Unable to attend moravian [] Unable to walk/stand [] Unable to read [] Unable to drive [] Unable to eat/drink [] Unable to sleep [] Unable to be with family [] Patient intubated [] Other: Summary happy to see friends and family Time spent with patient 20min
--- NOTE | 2020-10-28 15:35 | PC.NURSE ---
Patient IV was removed, catheter intact patient tolerated it well. Patient and daughter were educated on discharge medications, and information about d/c diagnosis. Patient and daughter had no questions or concerns. D/C follow up appointments were made. Pt left via wheelchair with daughter.
[2020-10-28 16:02] VITALS: BP 126/90; PULSE 90
== END 2020-10-28 15:35 | disposition home or self-care (01) | DRG 310 ==
LOC: ER 19:56 → CSU 10-25 07:17
PROVIDERS: Internal Medicine; Nurse Practitioner Family; Admitting Provider Internal Medicine; Emergency Provider Emergency Medicine; PCP Family Medicine; Visit Provider Family Medicine
DX: I48.91 Unspecified atrial fibrillation (principal); I10 Essential (primary) hypertension; E89.0 Postprocedural hypothyroidism; Z87.891 Personal history of nicotine dependence; R07.81 Pleurodynia; I95.9 Hypotension, unspecified; J84.10 Pulmonary fibrosis, unspecified; Z77.22 Contact with and (suspected) exposure to environmental tobacco smoke (acute) (chronic); Z79.82 Long term (current) use of aspirin
CPT/HCPCS: 36415; 71045; 71250; 78014; 78452; 80048; 80053; 81001; 83735; 83880; 84443; 84484; 85025; 85378; 87086; 93005; 93017; 93306; 96365; 96366; 96367; 96375; 99285; A9500; A9540; A9567; G0378; J1160; J1885; J2270; J2405; J2785; J3490

== ENCOUNTER 2020-11-14 06:50 | Outpatient (CLI) | payer MEDICARE, MEDICAID, SELFPAY ==
--- NOTE | 2020-11-14 06:59 | USCV_ITS ---
Ilana Lau Age: 75 Gender: F : 1945 Exam Date: 11/14/2020 07:17 Ordering Phys: Destini Guardado HOOP COILER HOOP COILER Technologist: Desirae Huntley [place] [facility] [place]: LUMP MEDIAL SIDE OF RT LEG BELOW KNEE HISTORY: Lump medial side of Rt leg below knee. No trauma PROCEDURES: Venous duplex imaging was performed in only the right lower extremity. The following venous structures were evaluated: common femoral vein, profunda vein, proximal portion of the greater saphenous vein, superficial femoral vein, and the popliteal vein. In addition, the posterior tibial and peroneal trunk were evaluated. Serial compression, augmentation maneuvers, and spectral Doppler flow evaluation were performed. Area of interest scanned medial side of lower leg. FINDINGS: No DVT seen in any vessel examined. Please see tech notes 0.57X 0.67X 0.58 cm echolucent area at the region of the lump CONCLUSIONS Possible small cyst/area of fluid collection measuring 0.57 x 0.67 x 0.58 cm in the region of the lump on the right side No evidence of DVT Dr Yazan Angelo MD [facility] (Electronically Signed) Final Date: 14 November 2020 16:14 S
== END 2020-11-14 06:51 | disposition home or self-care (01) ==
LOC: RAD 06:52
PROVIDERS: PCP Family Medicine; Visit Provider Registered Nurse
DX: R22.41 Localized swelling, mass and lump, right lower limb (principal)
CPT/HCPCS: 93971

== ENCOUNTER → 2020-11-27 08:07 | Outpatient (BNVA) | payer MEDICARE, MEDICAID, SELFPAY | PROVIDERS: PCP Family Medicine; Visit Provider Internal Medicine Cardiovascular Disease | DX: J92.9 Pleural plaque without asbestos (principal); J94.8 Other specified pleural conditions | CPT/HCPCS: 80048; 83880 ==

== ENCOUNTER 2020-12-09 07:59 | Outpatient (CLI) | payer MEDICARE, MEDICAID, SELFPAY ==
--- NOTE | 2020-12-09 08:04 | CT_ITS ---
WS: [id number] CT HEAD NONCONTRAST HISTORY: TIA;WEAKNESS OF RT ARM;WEAKNESS OF LT LEG;CONFUSION TECHNIQUE: Contiguous axial imaging performed through the brain in 2.5 mm imaging. Bone and soft tiss ue windows. Sagittal and coronal reformats reviewed. All CT scans at [facility] use at le ast one of these dose optimization techniques: automated exposure control; mA and/or kV adjustment pe r patient size (includes targeted exams where dose is matched to clinical indication); or iterative r econstruction. DLP: 521.93 mGy.cm COMPARISON: None available. No acute intracranial hemorrhage, midline shift or mass effect. Mild atrophy and mild chronic microvascular ischemic changes in the white matter. No focal area of bailey lcal effacement. No distortion of the soft tissue were aguilar-white matter. Significant artifact at the skull base. Ventricles: Normal size with no hydrocephalus. Paranasal sinuses: Small polyp in the LEFT maxillary sinus. Mastoid air cells: Well pneumatized. Calvarium and scalp: Skull is intact with no soft tissue edema or swelling. CT/CT head wo con* [id number] IMPRESSION: 1. No acute intracranial hemorrhage or edema. 2. Mild atrophy and chronic microvascular ischemic disease.
== END 2020-12-09 08:00 | disposition home or self-care (01) ==
LOC: RADWPI 08:03
PROVIDERS: PCP Registered Nurse; Visit Provider Registered Nurse
DX: G45.9 Transient cerebral ischemic attack, unspecified (principal); R29.898 Other symptoms and signs involving the musculoskeletal system; R41.0 Disorientation, unspecified; I67.82 Cerebral ischemia; G31.9 Degenerative disease of nervous system, unspecified
CPT/HCPCS: 70450

== ENCOUNTER → 2020-12-26 10:28 | Outpatient (BNVA) | payer MEDICARE, MEDICAID, SELFPAY | PROVIDERS: PCP Registered Nurse; Visit Provider Internal Medicine Cardiovascular Disease | DX: I10 Essential (primary) hypertension (principal); I48.91 Unspecified atrial fibrillation; R07.89 Other chest pain; Z79.899 Other long term (current) drug therapy | CPT/HCPCS: 80048; 83880 ==

== ENCOUNTER → 2021-01-13 10:42 | Outpatient (BNVA) | payer MEDICARE, MEDICAID, SELFPAY | PROVIDERS: PCP Registered Nurse; Visit Provider Internal Medicine Cardiovascular Disease | DX: I48.91 Unspecified atrial fibrillation (principal); R07.89 Other chest pain | CPT/HCPCS: 80048; 83880 ==

== ENCOUNTER → 2021-02-11 10:00 | Outpatient (BNVA) | payer MEDICARE, MEDICAID, SELFPAY | PROVIDERS: PCP Registered Nurse; Visit Provider Internal Medicine Cardiovascular Disease | DX: Z79.899 Other long term (current) drug therapy (principal); R07.89 Other chest pain; I48.91 Unspecified atrial fibrillation; I10 Essential (primary) hypertension | CPT/HCPCS: 80048; 83880 ==

== ENCOUNTER → 2021-03-17 11:05 | Outpatient (BNVA) | payer MEDICARE, MEDICAID, SELFPAY | PROVIDERS: PCP Registered Nurse; Visit Provider Internal Medicine Cardiovascular Disease | DX: R06.02 Shortness of breath (principal) | CPT/HCPCS: 80048; 83880 ==

== ENCOUNTER 2021-03-28 14:32 | Outpatient (CLI) | payer MEDICARE, MEDICAID, SELFPAY ==
--- NOTE | 2021-03-28 14:44 | XR_ITS ---
WS: [id number] PROCEDURE: XR chest 2V* [id number] CLINICAL INFORMATION: DYSPNEA ON EXERTION COMPARISON: October 24, 2020 FINDINGS: Heart: Cardiomegaly. Aortic calcification. Lungs: Advanced chronic emphysematous changes. No acute pulmonary infiltrates. No focal pneumonia or pleural fluid. Bones: Moderate thoracic kyphosis with chronic anterior wedging in the mid thoracic spine. XR/XR chest 2V* [id number] IMPRESSION: 1. Cardiomegaly. 2. Advanced chronic emphysematous changes with hyperinflation. No acute pulmon lopez infiltrates. 3. Moderate thoracic kyphosis.
== END 2021-03-28 14:33 | disposition home or self-care (01) ==
PROVIDERS: PCP Registered Nurse; Visit Provider Family Medicine
DX: R06.00 Dyspnea, unspecified (principal); I51.7 Cardiomegaly; M40.294 Other kyphosis, thoracic region
CPT/HCPCS: 71046

== ENCOUNTER → 2021-04-23 14:25 | Outpatient (BNVA) | payer MEDICARE, MEDICAID, SELFPAY | PROVIDERS: PCP Registered Nurse; Referring Provider Registered Nurse; Visit Provider Surgery | DX: K92.1 Melena (principal) | CPT/HCPCS: 87635 ==

== ENCOUNTER 2021-04-25 08:23 | Outpatient (CLI) | payer MEDICARE, MEDICAID, SELFPAY ==
--- NOTE | 2021-04-25 08:45 | USCV_ITS ---
Judi Ilana Age: 75 Gender: F : 1945 Exam Date: 04/25/2021 08:47 Ordering Phys: Yazan Angelo MD ([email or web address]) Technologist: Mary Razo Exam Location: [facility] [place] Indication: EVAL FOR CAROTID STENOSIS Risk Factors: Previous Vascular Surgery: Right Brachial BP: / Left Brachial BP: / Right Left Velocity (cm/s) Spectral Plaque Velocity (cm/s) Spectral Plaque Syst/Diast Broadening Syst/Diast Broadening 83.70/ 21.40 Prox CCA 74.60 / 16.30 69.20/ 20.40 Mid CCA 60.60 / 17.90 70.90/ 16.20 Distal CCA 52.80 / 15.50 35.50/ 11.80 Prox ICA 46.60 / 17.10 71.60/ 23.70 Mid ICA 74.60 / 27.20 51.90/ 21.00 Distal ICA 115.80/ 39.70 61.50 ECA 50.50 0.86 ICA/CCA 1.55 Antegrade Vertebral Antegrade 51.60/ 16.40 cm/s 74.30/ 21.40 cm/s Tri Subclavian Tri 70.70 60.70 FINDINGS Minimal plaques bilaterally at the bifurcations Normal Doppler flow velocities Antegrade flow in the vertebral arteries bilaterally Normal Doppler flow velocities in the external carotid and subclavian arteries CONCLUSIONS Minimal plaques bilaterally at the bifurcations. No unstable lesions or significant stenosis, based on the above findings Dr Yazan Angelo MD [facility] (Electronically Signed) Final Date: 25 April 2021 13:39 S
== END 2021-04-25 08:24 | disposition home or self-care (01) ==
LOC: RAD 08:24
PROVIDERS: PCP Registered Nurse; Visit Provider Internal Medicine Cardiovascular Disease
DX: I65.23 Occlusion and stenosis of bilateral carotid arteries (principal); I77.9 Disorder of arteries and arterioles, unspecified
CPT/HCPCS: 93880

== ENCOUNTER 2021-04-30 07:05 | Day surgery (SDC) | payer MEDICARE, MEDICAID, SELFPAY ==
[2021-04-25 13:03] VITALS: BMI 26.0
[2021-04-30 07:41] VITALS: BP 152/70; PULSE 58; RESP 18; TEMP 36.6; O2SAT 99
--- NOTE | 2021-04-30 07:41 | ANES.PREANE2 ---
Pre-Anesthetic Assessment Pre-Anesthetic Assessment: Height/Weight: Height 1.6 m Weight 66.678 kg Preop Diagnosis: Change in bowel habits Proposed Procedure: Operation Date: 04/30/21 08:30 Proposed Procedures p Colonoscopy 84891 K92.1(Not Applicable) - Lionel Briseno MD Was Beta Donnell taken within 24 hours: N/A Was Clonidine taken within 24 hours: N/A Social: Social History: No alcohol and No tobacco Exam: Pre-Anes Outpt Exam: alert, oriented x 3, clear to auscultation bilaterally and regular rate & rhythm Airway: Submandibular: WNL Cervical ROM: WNL MP: 2 Dentition: False CV/HEM: CV/HEM: Afib, Arrythmia, HTN and PVD Comments: anticoagulation Anesthetic Plan: ASA status: 3 Anesthesia: MAC Risk of > 500 ml blood loss (7ml/kg in children): No PFSH Anesthesia PFSH: Medical History Afib Hypertension Shortness of breath Surgical History H/O thyroidectomy H/O: hysterectomy History of tubal ligation Hx of appendectomy Family History Father CAD (coronary artery disease) Brother CAD (coronary artery disease) Cancer Sister Cancer Dementia Mother Lung disease Denies family history of Diabetes Clotting disorder Hyperlipidemia Chronic kidney disease (CKD) Suicide Anesthesia complication Bleeding disorder Stroke Social History Alcohol intake: current Alcohol intake frequency: holidays/special occasions only Household members: friend(s) Housing: House Data Anesthesia Cardiac Studies: No Data to Display
[2021-04-30] MEDS: sodium chloride 0.9% 1,000 ML 30 ML IV (07:58)
--- NOTE | 2021-04-30 08:06 | W.PM.OPSUD ---
Surgery/Procedure H&P Update DATE OF PROCEDURE: April 30, 2021 DATE H&P PERFORMED: 04/23/21 H&P UPDATE INFORMATION: I have reviewed H&P completed within last 30 days, I have examined patient prior to procedure and No changes to prior documentation PREOP DIAGNOSIS: Change in bowel habits PRIMARY INDICATION FOR PROCEDURE: THE SAME PLANNED PROCEDURE: Operation Date: 04/30/21 08:30 Proposed Procedures p Colonoscopy 57837 K92.1(Not Applicable) - Lionel Briseno MD
[2021-04-30 09:04] VITALS: BP 119/58; PULSE 64; RESP 16; TEMP 36.2; O2SAT 100
[2021-04-30 09:14] VITALS: BP 128/67; PULSE 57; RESP 18; O2SAT 98
--- NOTE | 2021-04-30 10:07 | ANE.PACU2 ---
Inpatient post-anesthesia follow up: Airway intact: Yes Vital signs: Temperature 97.2 F Pulse Rate 57 Respiratory Rate 18 Blood Pressure 128/67 Pulse Oximetry 98 Oxygen Delivery Me thod Room Air Oxygen Flow Rate Fraction of Inspir ed Oxygen Hydration adequate: Yes Mental status: Baseline
== END 2021-04-30 09:40 | disposition home or self-care (01) ==
PROVIDERS: PCP Registered Nurse; Visit Provider Surgery
PROC: 0DJD8ZZ Inspection of Lower Intestinal Tract, Via Natural or Artificial Opening Endoscopic (ICD-10-PCS; CPT 45378; principal; 2021-04-30 08:30)
DX: K92.1 Melena (principal); K57.30 Diverticulosis of large intestine without perforation or abscess without bleeding; I48.91 Unspecified atrial fibrillation; I10 Essential (primary) hypertension; Z79.01 Long term (current) use of anticoagulants; Z82.49 Family history of ischemic heart disease and other diseases of the circulatory system
CPT/HCPCS: 45378; 96360; 96361; J2704; J7030

== ENCOUNTER 2021-06-23 12:37 | Outpatient (CLI) | payer MEDICARE, MEDICAID, SELFPAY ==
--- NOTE | 2021-06-23 12:53 | MM_ITS ---
WS: [id number] BILATERAL DIGITAL SCREENING MAMMOGRAPHY WITH CAD CLINICAL INFORMATION: SCREEN HISTORY: Screening mammogram. No current complaints. COMPARISON: June 12, 2020 TECHNIQUE: Bilateral CC and MLO views. FINDINGS: Scattered fibroglandular densities bilaterally. Vascular calcification. Bilateral benign punctate macario cifications are stable. No suspicious focal mass, asymmetry, calcifications, or architectural distort ion. No evidence of malignancy. MM/[place] [id number] IMPRESSION: BI-RADS: 2-Benign FOLLOW UP: 1 Year Follow-up Recommend return to annual screening mammography.
== END 2021-06-23 12:38 | disposition home or self-care (01) ==
PROVIDERS: PCP Family Medicine; Visit Provider Family Medicine
DX: Z12.31 Encounter for screening mammogram for malignant neoplasm of breast (principal)
CPT/HCPCS: 77067

== ENCOUNTER 2021-06-23 13:30 | Outpatient (CLI) | payer MEDICARE, MEDICAID, SELFPAY ==
--- NOTE | 2021-06-23 13:30 | US_ITS ---
WS: [id number] ULTRASOUND RENAL TECHNIQUE: Ultrasound examination of both kidneys. CLINICAL INFORMATION: HEMATURIA COMPARISON: None. FINDINGS: RIGHT: Right kidney is normal in size and appearance. Echogenicity: Normal. Cortical thickness: 1.2 cm; Normal. Hydronephrosis: None. Perinephric fluid: None. Right kidney measures: 9.7 cm x 4.1 cm x 4.7 cm. LEFT: Left kidney is normal in size and appearance. Echogenicity: Normal. Cortical thickness: 1.3 cm; Normal. Hydronephrosis: None. Perinephric fluid: None. Left kidney measures: 9.4 cm x 4.0 cm x 4.3 cm. Normal visualized aorta. Normal bladder. US/US renal BI* [id number] IMPRESSION: Normal renal ultrasound.
== END 2021-06-23 13:31 | disposition home or self-care (01) ==
LOC: RAD 13:33
PROVIDERS: PCP Family Medicine; Visit Provider Registered Nurse
DX: R31.9 Hematuria, unspecified (principal)
CPT/HCPCS: 76770

== ENCOUNTER 2021-06-27 08:01 | Outpatient (CLI) | payer MEDICARE, MEDICAID, SELFPAY ==
--- NOTE | 2021-06-27 08:42 | CT_ITS ---
WS: [id number] CT scan of the chest without IV contrast, additional two-dimensional coronal and sagittal reconstruct ion was performed. 06/27/2021 Clinical Data: Pleural thickening Comparison: CT chest, 10/26/2020. DLP: 643.[address] scans at [facility] use at least one of these dose optimization techniques: automated e xposure control; mA and/or kV adjustment per patient size (includes targeted exams where dose is matc hed to clinical indication); or iterative reconstruction. Findings: No nodules, masses or effusions are seen. The left thyroid gland is smaller absent. There is hyper in flation of the lungs with increase in AP diameter. The heart size is normal with no pericardial effus ion. The pulmonary arterial system and thoracic aorta demonstrate no dilatations. There is minimal ca lcification of the wall of the descending thoracic aorta. The trachea bifurcates normally into the br onchi. There is no axillary or significant mediastinal adenopathy. The upper abdomen shows no abnormalities. There is degenerative change of the thoracic vertebral bodi es. CT/CT chest wo con [id number] Impression: 1. Negative for acute cardiopulmonary disease. 2. Hyperinflation.
== END 2021-06-27 08:02 | disposition home or self-care (01) ==
PROVIDERS: PCP Family Medicine; Visit Provider Internal Medicine Critical Care Medicine
DX: J92.9 Pleural plaque without asbestos (principal)
CPT/HCPCS: 71250; 80048; 83880

== ENCOUNTER 2021-08-04 22:30 | Inpatient (IN) | payer MEDICARE, MEDICAID, SELFPAY ==
--- NOTE | 2021-08-04 22:46 | ECG_ITS ---
[facility] Test Date: 2021-08-04 Pat Name: Ilana Lau Department: Room: Gender: Female Councilperson: : 1945 Requested By: Carlton Kelly Order Number: [id number] Ramandeep MD: Yazan Angelo M.D. Measurements Intervals [place] Rate: 55 P: -4 WV: 236 QRS: 53 QRSD: 105 T: 64 QT: 471 QTc: 452 Interpretive Statements SINUS BRADYCARDIA WITH FIRST DEGREE AV BLOCK MINIMAL ST DEPRESSION [0.025+ mV ST DEPRESSION] Compared to ECG 10/24/2020 20:40:33 First degree AV block now present ST (T wave) deviation now present Atrial fibrillation no longer present Electronically Signed On 08-06-2021 19:51:54 DIESEL TRUCK MECHANIC by Yazan Angelo M.D. [id number]
--- NOTE | 2021-08-04 22:46 | XRR_ITS ---
PROCEDURE INFORMATION: Exam: XR Chest Exam date and time: 08/04/2021 10:46 PM Age: 75 years old Clinical indication: Sternal or substernal pain; Additional info: Chest pain TECHNIQUE: Imaging protocol: XR of the chest. Views: 1 view. COMPARISON: CT chest [facility] [id number] 06/27/2021 8:49 AM FINDINGS: Lungs: Right hilar to lower lobe atelectasis versus minimal infiltrate. Pleural spaces: Unremarkable. No pleural effusion. No pneumothorax. Heart/Mediastinum: Cardiomegaly. Bones/joints: Unremarkable. XR/XR chest 1V portable [id number] IMPRESSION: 1. Cardiomegaly. 2. Right hilar to lower lobe atelectasis versus minimal infiltrate.
[2021-08-04 23:01] VITALS: BP 150/93; PULSE 56; RESP 18; TEMP 36.2; O2SAT 96; BMI 28.3
--- NOTE | 2021-08-04 23:04 | W.ED.CHESTPA ---
HPI - Chest Pain General: Chief Complaint: Chest Pain Stated Complaint: CHEST PAIN Time Seen by Provider: 08/04/21 23:04 History of Present Illness: HPI narrative: Ms. Bobo is a 75-year-old lady with history of atrial fibrillation, carotid stenosis, hypertension presented to the emergency department due to chest pain and shortness of breath. Symptom onset was at approximately 5 PM. Onset was sudden. She also endorses moderate intensity burning sensation in her chest. She was given nitroglycerin prior to arrival which improved symptoms. Shortness of breath was worsened by exertion however did not go with rest. Denies other infectious symptoms. Denies other specific changes in health. No other specific exacerbating or relieving factors identified. MD complaint: chest pain Pertinent past history: other Onset (ago): hour(s) Timing of current episode: constant Onset: during rest Pain location: substernal and epigastric Pain radiation: none Severity: moderate Quality: burning Relieving factors: nothing Exacerbating factors: exertion Context: other Associated symptoms: Reports other Treatment prior to arrival: nitroglycerin Review of Systems General: Reports: 10 or more systems reviewed and unremarkable except in HPI and below PFSH ED PFSH: Medical History Afib Diverticulosis Hypertension Shortness of breath Surgical History H/O thyroidectomy H/O: hysterectomy History of tubal ligation Hx of appendectomy Family History Father CAD (coronary artery disease) Brother CAD (coronary artery disease) Cancer Sister Cancer Dementia Mother Lung disease Denies family history of Diabetes Clotting disorder Hyperlipidemia Chronic kidney disease (CKD) Suicide Anesthesia complication Bleeding disorder Stroke Social History Alcohol intake: current Alcohol intake frequency: holidays/special occasions only Household members: friend(s) Housing: House Physical Exam Const: COMMON NORMALS: alert GENERAL APPEARANCE: cooperative and well developed HENMT: COMMON NORMALS: normocephalic and atraumatic HEAD & SCALP: normocephalic and atraumatic THROAT: posterior oropharynx normal Eye: COMMON NORMALS: conjunctivae normal CONJUNCTIVA: Yes conjunctivae normal SCLERA: sclerae normal Neck/C-Spine: COMMON NORMALS: supple GENERAL: Yes trachea midline Resp: EFFORT & INSPECTION: Yes tachypneic AUSCULTATION: diminished lung sounds Cardio: COMMON NORMALS: regular rate and regular rhythm RATE: regular rate RHYTHM: regular rhythm GI: COMMON NORMALS: Soft to palpation PALPATION: Yes Soft to palpation and No Tenderness to palpation present (GI) PERCUSSION: normal to percussion Extremity: GENERAL: Yes normal exam except as noted and No edema Neuro: COMMON NORMALS: moves all extremities SENSORIUM/ORIENTATION: Yes alert and No Orientation impaired Psych: COMMON NORMALS: mental status grossly normal and Normal thought process present THOUGHT PROCESS: Normal thought process present Course ED course: - Patient was seen and evaluated by me at bedside - Patient placed on cardiac monitors, IV access obtained - Initial evaluation notable for exam as above - Labs notable for No leukocytosis, normal hemoglobin. Metabolic panel with minimally elevated creatinine, mild transaminitis of unclear etiology, TSH elevated with normal free T4. - Imaging notable for cardiomegaly with right hilar infiltrate versus atelectasis - Upon serial reexamination after treatment the patient was similar - Based on patient history, evaluation, labs, and imaging as interpreted the most likely cause of the patient's condition is unspecified chest pain with moderate risk heart score - The results of ED evaluation were discussed with the patient including possible disposition options including inpatient further cardiac evaluation as warranted by moderate risk heart score versus outpatient follow-up. Patient prefers inpatient stress test. -Hospitalist service contacted and agreed to admit the patient. - Patient was admitted without further deterioration or significant events. Note: Click bubbles or prepopulated petty in note writing are used for assistance with data collection and billing and are inherently more limited than narrative and other text portions of this note. Please use narrative for additional clinical history and defer to narrative/free test for any case of contradictory information. If information appears in only free text or click bubble it should be considered present or absent as reported. Please contact note music writer for clarifications of clinical information or contradictory information. MDM is a brief summary, contradictory or erroneous seeming information should be clarified and full note should be reviewed. Vital Signs: Vital signs: Vital Signs Temperature 97.5 F L 08/06/21 04:00 Pulse Rate 66 08/06/21 09:00 Respiratory Rate 25 H 08/06/21 09:00 Blood Pressure 125/62 08/06/21 09:00 Pulse Oximetry 98 08/06/21 12:54 MDM - Chest Pain MDM Narrative: Medical decision making narrative: 75-year-old lady moderate risk heart score presenting with chest pain and shortness of breath. Improved with nitroglycerin. Negative delta troponin however given heart score patient prefers inpatient evaluation which is reasonable. Admitted for cardiac stress test. Medical Records: Attestation: I reviewed the patient's medical records. Lab Data: Attestation: I reviewed the patient's lab results. Labs: Lab Results 08/04/21 08/04/21 08/04/21 22:45 22:45 22:45 WBC 7.4 10^3/uL 10^3/ uL (4.0-10.0) RBC 4.39 10^6/uL 10^6 /uL (4.1-5.3) Hgb 13.8 g/dL g/dL (11.5-15.3) Hct 42.9 % % (37.0-47.0) MCV 97.7 fl fl (81-99) MCH 31.4 pg pg (28.0-34.0) MCHC 32.2 g/dL g/dL (30.0-36.0) RDW 12.8 % % (12.1-15.1) Plt Count 258 10^3/cmm 10^3 /cmm (130-400) MPV 9.3 fL fL (7.4-10.4) Neut % (Auto) 48.9 % % Lymph % (Auto) 39.9 % % [place] % (Auto) 7.3 % % Eos % (Auto) 1.9 % % Baso % (Auto) 1.5 % % Neut # (Auto) 3.62 10^3/uL 10^3 /uL (1.8-7.7) Lymph # (Auto) 3.0 10^3/uL 10^3/ uL (0.8-4.8) [place] # (Auto) 0.5 10^3/uL 10^3/ uL (0.2-0.9) Eos # (Auto) 0.1 10^3/uL 10^3/ uL (0.0-0.8) Baso # (Auto) 0.1 10^3/uL 10^3/ uL (0.0-0.1) Nucleated RBC % (a uto) 0 % % Nucleated RBCs # 0.0 /100WBC /100W BC ESR Sodium 137 mmol/L mmol/L (136-145) Potassium 4.6 mmol/L mmol/L (3.5-5.1) Chloride 99 mmol/L mmol/L (98-107) Carbon Dioxide 28 mmol/L mmol/L (22-29) Anion Gap 14.6 (5-19) BUN 17 mg/dL mg/dL (8-23) Creatinine 1.1 mg/dL H mg/dL (0.5-0.9) GFR Calculation Not Reportable Glucose 104 mg/dL mg/dL (65-115) Calculated Osmolal ity 286 mOsm/kg mOsm/ kg (285-295) Calcium 8.5 mg/dL mg/dL (8.5-10.5) Magnesium Total Bilirubin 0.2 mg/dL mg/dL (0.15-1.2) AST 146 U/L H U/L (0-32) ALT 105 U/L H U/L (0-33) Alkaline Phosphata se 89 IU/L IU/L (35-105) Troponin T Baselin e 9 ng/L ng/L (0-10) Troponin T 120 Min lobo Delta Troponin T Troponin T Hi Sens 6Hr Troponin T Hi Sens 6Hr Delta C-Reactive Protein NT-Pro-B Natriuret Pep 523 pg/mL H pg/mL (0-450) Total Protein 6.5 g/dL L g/dL (6.6-8.7) Albumin 4.3 g/dL g/dL (3.5-5.2) Globulin 2.2 g/dL g/dL (1.3-4.6) Lipase Procalcitonin TSH Free T4 08/04/21 08/04/21 08/04/21 22:45 22:45 22:45 WBC RBC Hgb Hct MCV MCH MCHC RDW Plt Count MPV Neut % (Auto) Lymph % (Auto) [place] % (Auto) Eos % (Auto) Baso % (Auto) Neut # (Auto) Lymph # (Auto) [place] # (Auto) Eos # (Auto) Baso # (Auto) Nucleated RBC % (a uto) Nucleated RBCs # ESR 7 mm/hr mm/hr (0-15) Sodium Potassium Chloride Carbon Dioxide Anion Gap BUN Creatinine GFR Calculation Glucose Calculated Osmolal ity Calcium Magnesium 2.6 mg/dL H mg/dL (1.7-2.3) Total Bilirubin AST ALT Alkaline Phosphata se Troponin T Baselin e Troponin T 120 Min lobo Delta Troponin T Troponin T Hi Sens 6Hr Troponin T Hi Sens 6Hr Delta C-Reactive Protein NT-Pro-B Natriuret Pep Total Protein Albumin Globulin Lipase 19 U/L U/L (13-60) Procalcitonin TSH 7.93 uIU/mL H uIU /mL (0.27-4.20) Free T4 1.45 ng/dL ng/dL (0.82-1.77) 08/05/21 08/05/21 08/05/21 00:49 00:49 04:50 WBC RBC Hgb Hct MCV MCH MCHC RDW Plt Count MPV Neut % (Auto) Lymph % (Auto) [place] % (Auto) Eos % (Auto) Baso % (Auto) Neut # (Auto) Lymph # (Auto) [place] # (Auto) Eos # (Auto) Baso # (Auto) Nucleated RBC % (a uto) Nucleated RBCs # ESR Sodium Potassium Chloride Carbon Dioxide Anion Gap BUN Creatinine GFR Calculation Glucose Calculated Osmolal ity Calcium Magnesium Total Bilirubin AST ALT Alkaline Phosphata se Troponin T Baselin e Troponin T 120 Min lobo 9.39 ng/L ng/L (0-10) Delta Troponin T 0.39 ABS# ABS# (0-10) Troponin T Hi Sens 6Hr 9.01 ng/L ng/L (0-10) Troponin T Hi Sens 6Hr Delta 0.01 ng/L ng/L (0-12) C-Reactive Protein NT-Pro-B Natriuret Pep Total Protein Albumin Globulin Lipase Procalcitonin 0.02 ng/mL ng/mL (0-0.5) TSH Free T4 08/05/21 08/05/21 04:50 04:50 WBC RBC Hgb Hct MCV MCH MCHC RDW Plt Count MPV Neut % (Auto) Lymph % (Auto) [place] % (Auto) Eos % (Auto) Baso % (Auto) Neut # (Auto) Lymph # (Auto) [place] # (Auto) Eos # (Auto) Baso # (Auto) Nucleated RBC % (a uto) Nucleated RBCs # ESR Sodium Potassium Chloride Carbon Dioxide Anion Gap BUN Creatinine GFR Calculation Glucose Calculated Osmolal ity Calcium Magnesium Total Bilirubin AST ALT Alkaline Phosphata se Troponin T Baselin e Troponin T 120 Min lobo Delta Troponin T Troponin T Hi Sens 6Hr Troponin T Hi Sens 6Hr Delta C-Reactive Protein 2.6 mg/L mg/L (0.0-4.9) NT-Pro-B Natriuret Pep Total Protein Albumin Globulin Lipase Procalcitonin 0.02 ng/mL ng/mL (0-0.5) TSH Free T4 EKG Data^: EKG 1: Attestation: I personally reviewed and interpreted this EKG as follows: EKG interpretation date: 08/04/21 EKG interpretation time: 23:15 Interpretation: Twelve-lead EKG shows a regular rhythm at a rate of 55. [place] interval 236. QRS duration 105. QTc 460. regular [place]. Interpretation: Sinus rhythm. First-degree AV block. Nonspecific ST segment abnormalities.. EKG 2: Attestation: I personally reviewed and interpreted this EKG as follows: EKG interpretation date: 08/05/21 EKG interpretation time: 01:12 Interpretation: Twelve-lead EKG shows a regular rhythm at a rate of 54. IL interval 235. QRS duration 104. QTc 480. Normal [place]. Interpretation: Sinus rhythm. First-degree AV block. Nonspecific ST segment abnormalities.. EKG 3: Attestation: I personally reviewed and interpreted this EKG as follows: EKG interpretation date: 08/05/21 EKG interpretation time: 04:40 Interpretation: Twelve-lead EKG shows a regular rhythm at a rate of 62. [place] interval 246. QRS duration 105. QTc 439. Normal [place]. Interpretation: Sinus rhythm. First-degree AV block. Nonspecific ST segment abnormalities.. Discharge Plan Discharge Patient Disposition: Placed in Observation Admit Provider: Bridget Hicks Clinical Impression: Chest pain Discharge Diet: Cardiac Discharge Activity: Resume usual activity Coding Level of Care Code ED Sap Project Manager for Adan Haro
[2021-08-04 23:14] LABS: Basophils # 0.1 10^3/uL (0.0-0.1); Basophils % 1.5 %; Eosinophils # 0.1 10^3/uL (0.0-0.8); Eosinophils % 1.9 %; Hematocrit 42.9 % (37.0-47.0); Hemoglobin 13.8 g/dL (11.5-15.3); Lymphocytes % 39.9 %; Mean Corpuscular HGB Conc 32.2 g/dL (30.0-36.0); Mean Corpuscular Hemoglobin 31.4 pg (28.0-34.0); Mean Corpuscular Volume 97.7 fl (81-99); Mean Platelet Volume 9.3 fL (7.4-10.4); Monocytes # 0.5 10^3/uL (0.2-0.9); Monocytes % 7.3 %; Neutrophils # 3.62 10^3/uL (1.8-7.7); Neutrophils % 48.9 %; Nucleated Red Blood Cells % 0 %; Platelet Count 258 10^3/cmm (130-400); Red Blood Count 4.39 10^6/uL (4.1-5.3); Red Cell Distribution Width 12.8 % (12.1-15.1); Troponin(5th) Baseline 9 ng/L (0-10); White Blood Count 7.4 10^3/uL (4.0-10.0)
[2021-08-04 23:21] LABS: Alanine Aminotransferase 105 U/L (0-33); Albumin Level 4.3 g/dL (3.5-5.2); Alkaline Phosphatase 89 IU/L (35-105); Anion Gap 14.6 (5-19); Aspartate Amino Transferase 146 U/L (0-32); Blood Urea Nitrogen 17 mg/dL (8-23); Calcium 8.5 mg/dL (8.5-10.5); Carbon Dioxide 28 mmol/L (22-29); Chloride 99 mmol/L (98-107); Globulin 2.2 g/dL (1.3-4.6); Glucose 104 mg/dL (65-115); NT Pro B Type Natriuretic Pept 523 pg/mL (0-450); Osmolality Calculated 286 mOsm/kg (285-295); Potassium 4.6 mmol/L (3.5-5.1); Sodium 137 mmol/L (136-145); Total Bilirubin 0.2 mg/dL (0.15-1.2); Total Protein 6.5 g/dL (6.6-8.7)
[2021-08-04 23:56] LABS: Magnesium 2.6 mg/dL (1.7-2.3); Thyroid Stimulating Hormone 7.93 uIU/mL (0.27-4.20)
[2021-08-05] VITALS (21 sets, daily range): BP systolic 105–175; BP diastolic 44–95; PULSE 61–73; RESP 16–30; TEMP 36.4–36.7; O2SAT 92–97
[2021-08-05 00:36] LABS: Lipase 19 U/L (13-60)
[2021-08-05 00:43] LABS: Free T4 Free Thyroxine 1.45 ng/dL (0.82-1.77)
--- NOTE | 2021-08-05 00:46 | ECG_ITS ---
[facility] Test Date: 2021-08-05 Pat Name: Ilana Lau Department: Room: Gender: Female Aircraft De Icer Installer: : 1945 Requested By: Carlton Kelly Order Number: [id number] Ramandeep MD: Yazan Angelo M.D. Measurements Intervals [place] Rate: 54 P: 31 [place]: 235 QRS: 67 QRSD: 104 T: 67 QT: 494 QTc: 470 Interpretive Statements SINUS BRADYCARDIA WITH SINUS ARRHYTHMIA WITH FIRST DEGREE AV BLOCK MINIMAL ST DEPRESSION [0.025+ mV ST DEPRESSION] PROLONGED QT INTERVAL Compared to ECG 08/04/2021 23:12:36 Prolonged QT interval now present ST (T wave) deviation still present Electronically Signed On 08-06-2021 19:59:21 SCRAP CARRIER by Yazan Angelo M.D. [id number]
[2021-08-05 01:19] LABS: Troponin 5 2HR 9.39 ng/L (0-10); Troponin 5 2HR Delta 0.39 ABS# (0-10)
[2021-08-05 03:06] LABS: Procalcitonin 0.02 ng/mL (0-0.5)
--- NOTE | 2021-08-05 04:46 | ECG_ITS ---
[facility] Test Date: 2021-08-05 Pat Name: Ilana Lau Department: Room: Gender: Female Electrical Timing Device Calibrator: : 1945 Requested By: Carlton Kelly Order Number: [id number] Ramandeep MD: Yazan Angelo M.D. Measurements Intervals [place] Rate: 62 P: 34 [place]: 246 QRS: 35 QRSD: 105 T: 64 QT: 433 QTc: 443 Interpretive Statements SINUS RHYTHM WITH SINUS ARRHYTHMIA WITH FIRST DEGREE AV BLOCK MINIMAL ST DEPRESSION [0.025+ mV ST DEPRESSION] Compared to ECG 08/05/2021 01:03:43 Sinus bradycardia no longer present Prolonged QT interval no longer present ST (T wave) deviation still present Electronically Signed On 08-06-2021 20:00:32 ASSISTANT DIRECTOR OF FINANCIAL AID by Yazan Angelo M.D. [id number]
[2021-08-05 05:14] LABS: Troponin 5 6HR 9.01 ng/L (0-10); Troponin 5 6HR Delta 0.01 ng/L (0-12)
--- NOTE | 2021-08-05 05:30 | PC.NURSE ---
Patient does not know her home medications and does not have a list with her. Patient states that her daughter will be here today and she will know her medications.
--- NOTE | 2021-08-05 05:55 | PC.NURSE ---
Dr. Hicks notified of patient c/o chest pain 05/04. Patient states shortness of breath and chest pain is worse upon ambulation. PRN Morphine ordered.
--- NOTE | 2021-08-05 06:17 | PC.NURSE ---
Patient educated that she is going to be tested for COVID and cannot have visitors. Dr. Hicks came to bedside. Patient stated that she is not having any chest pain to the physician. Patient only c/o shortness of breath to physician. Unable to complete admission assessment at this time. Patient states I can't answer questions right now. I can't breathe.
[2021-08-05] MEDS: nitroglycerin 0.4 mg sublingual Tablet SUBLINGUAL (06:22)
--- NOTE | 2021-08-05 06:26 | P.HP_ITS ---
Providers/Chief Complaint Admitting Physician: Bridget Hicks MD Primary Care Provider: Lisa Nunn DO Chief Complaint: CHEST PAIN History of Present Illness Ilana Lau is a 75 year old female with chronic episodic Afib on anticoagulation with Eliquis, carotid stenosis, benign essential hypertension, and atypical chest pain.presented to the ER today with chief complaints of shortness of breath that started overnight. She is requiring 2 L/min of oxygen supplementation which is new according to her. Currently saturating between 89 to 92%. States that her breathing is worse on attempting to talk. Noted to be tachypneic with respiratory rate in the 30s. Has a past history additionally for CHF for which patient is currently on Lasix 60 mg p.o. daily. Reports c ompliance with all of her medications. She has also been experiencing cough for the past 2 days, runny nose for several days and intermittent diarrhea. Chest x-ray performed today with cardiomegaly, right hilar to lower lobe atelectasis versus minimal infiltrate. Last echo from October 2020 was with LVEF of 65%, no gross wall motion abnormalities, mild LVH and PASP of 30. Denies history of COPD or any inhaler use. No fever, chest pain. No acute ST-T wave changes noted. Troponin series withou t significant delta at 2 hours. Has received 2 doses of COVID-19 vaccine in 2020. Review of Systems General: Reports: 10 or more systems reviewed and unremarkable except in HPI and below Const: Denies: fever(s), chills or body aches Eyes: Denies: change in vision, blurry vision or photophobia ENMT: Reports: hoarseness; Denies: throat pain, enlarged tonsils, odynophagia or nasal congestion Card: Denies: chest pain, palpitations, irregular heart rhythm, edema, swelling of feet/ankles, lightheadedness, pre-syncope, dyspnea on exertion or orthopnea Resp: Denies: dyspnea, productive cough, non-productive cough, wheezing, stridor, pain on inspiration, change in phlegm color, hemoptysis or chest congestion GI: Denies: abdominal pain, nausea, vomiting, hematemesis, coffee ground emesis, dysphagia, heartburn, diarrhea, constipation, GI cramping, change in stool character, hematochezia or melena : Denies: flank pain, difficulty voiding, dysuria, urinary frequency, urinary urgency, urinary hesitancy or hematuria Musc: Denies: neck pain, back pain, extremity pain, joint swelling, joint warmth or deformity Neuro: Denies: headache(s), numbness in extremities, weakness in extremities, sensory changes, difficulty walking, frequent falls, dizziness, vertigo, behavioral changes, Slurred speech present or seizure-like activity Psych: Denies: anxiety, depression, suicidal ideation or homicidal ideation Endo: Denies: polyuria, polydipsia, tired all the time, cold intolerance or hot flashes Dawit/Lymph: Denies: easy bruising or easy bleeding Medications/Allergies Home Medications Medication Instructions Recorded Confirmed Last Taken Type levothyroxine 25 mcg tablet 25 mcg PO DAILY tab 11/07/20 05/28/21 04/29/21 History metoprolol tartrate 50 mg tablet 50 mg PO BID@0900,2100 #180 tab 11/14/20 05/28/21 04/29/21 Rx propafenone 150 mg tablet 300 mg PO DIRECTED #450 tab 03/12/21 05/28/21 04/29/21 Rx apixaban 5 mg tablet See Rx Instructions .ROUTE 03/17/21 05/28/21 04/21/21 Rx .COMPLEX #60 tab probiotic DIRECTED 05/19/21 05/28/21 Unknown History furosemide 40 mg tablet 60 mg PO DAILY #135 tab 06/13/21 Unknown Rx potassium chloride 10 mEq 30 meq PO DAILY #270 tab 06/13/21 Unknown Rx tablet,extended release Allergies Allergy/AdvReac Type Severity Reaction Status Date / Time atorvastatin [From Lipitor] Allergy ADR-Muscle Verified 07/03/21 09:00 Pain PFSH Acute PFSH: Medical History Afib Diverticulosis Hypertension Shortness of breath Surgical History H/O thyroidectomy H/O: hysterectomy History of tubal ligation Hx of appendectomy Family History Father CAD (coronary artery disease) Brother CAD (coronary artery disease) Cancer Sister Cancer Dementia Mother Lung disease Denies family history of Diabetes Clotting disorder Hyperlipidemia Chronic kidney disease (CKD) Suicide Anesthesia complication Bleeding disorder Stroke Social History Alcohol intake: current Alcohol intake frequency: holidays/special occasions only Household members: friend(s) Housing: House Vitals/I&O/Wt Last Vital Signs Temp 97.7 F 08/05/21 05:31 Pulse 63 08/05/21 05:56 Resp 23 H 08/05/21 05:31 BP 166/95 08/05/21 06:15 Pulse Ox 92 08/05/21 05:31 Weight last 48 hrs Weight 48.398 kg Weight 72.575 kg Physical Exam Narrative: EXAM NARRATIVE: General: Tachypneic with respiratory rate in the 30s, appears uncomfortable HEENT: PERRLA, pupils bilaterally equal and reactive, pallors not present Chest: Bilateral scattered wheezing all areas CVS: S1-S2 regular, no murmurs, no tachycardia, no gallops, no rubs Abdomen: Soft, nontender, no organomegaly, bowel sounds present Neuro: No focal deficits, no facial deformity, AO x3, power 5/5 in all limbs Extremities: Pitting edema bilateral lower extremities Data : 08/04/21 22:45 08/04/21 22:45 A&P Assessment and plan (1) Acute dyspnea: Patient with past medical history as outlined above presenting today with acute onset dyspnea of 1 day duration along with 2 to 3 days of cough and rhinorrhea. Differentials at this time include possible upper respiratory viral illness. Chest x-ray suggestive of possible right lower lobe atelectasis versus infiltrate. Prior CAT scans performed through 2020 showed some chronic pleural thickening and atelectasis. We will start patient on empiric antibiotic coverage with ceftriaxone and azithromycin for possibility of pneumonia. Differentials additionally include acute bronchitis precipitated by upper respiratory illness versus acute on chronic preserved ejection fraction CHF exacerbation given elevated BNP and lower extremity edema. Check COVID PCR and influenza Ag Start inhalation with DuoNeb and budesonide at this time Lasix 40 mg IV now, monitor urine output and kidney function. Less likely to be PE given that patient is on chronic Eliquis 5 mg twice daily for history of atrial fibrillation. Unlikely ACS given no acute ST-T wave changes on EKG and negative troponin series. 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
[2021-08-05] MEDS: FUROsemide 10 mg/mL SDV 4mL 40 MG IVP (06:28)
[2021-08-05] MEDS: azithromycin 500 MG in sodium chloride 0.9% 250 ML 250 MG PO (06:35)
[2021-08-05] MEDS: budesonide 0.5 mg/2 mL Neb INHALATION ×2 (08:42→20:45)
[2021-08-05] MEDS: ipratropium-albuterol 3 mL Neb INHALATION ×3 (08:43→20:45)
[2021-08-05] MEDS: cefTRIAXone 1,000 MG in sodium chloride 0.9% (plus) 50 ML 100 MG IV (09:56)
[2021-08-05] MEDS: apixaban 5 mg Tablet PO ×2 (09:56→20:29)
[2021-08-05] MEDS: metoprolol tartrate 50 mg Tablet PO ×2 (09:56→20:29)
[2021-08-05] MEDS: pantoprazole DR 40 mg Tablet PO (09:56)
[2021-08-05 11:24] LABS: Adenovirus Not Detected (NOT DETECT); Chlamydia Pneumoniae Not Detected (NOT DETECT); Coronavirus 229E,HKU1,NL63,OC4 Not Detected (NOT DETECT); Human Metapneumovirus Not Detected (NOT DETECT); Human Rhinovirus/Enterovirus Not Detected (NOT DETECT); Influenza A Not Detected (NOT DETECT); Influenza A H1 Not Detected (NOT DETECT); Influenza A H1-2009 Not Detected (NOT DETECT); Influenza A H3 Not Detected (NOT DETECT); Influenza B Not Detected (NOT DETECT); Mycoplasma Pneumoniae Not Detected (NOT DETECT); Parainfluenza Virus Type 1 Not Detected (NOT DETECT); Parainfluenza Virus Type 2 Not Detected (NOT DETECT); Parainfluenza Virus Type 3 Not Detected (NOT DETECT); Parainfluenza Virus Type 4 Not Detected (NOT DETECT); Respiratory Syncytial Virus A Not Detected (NOT DETECT); Respiratory Syncytial Virus B Not Detected (NOT DETECT); SARS-COV-2 Not Detected (NOT DETECT)
--- NOTE | 2021-08-05 13:27 | PM.PN ---
Subjective Subjective: Interval history: Patient was seen this morning, she tells me that her shortness of breath has improved, no nausea, vomiting, no chest pain, no palpitations, no lightheadedness, no dizziness, she tells me that last night, that the shortness breath just suddenly came on, she hopes is not COVID, she is compliant with Eliquis therapy Vitals/I&O/Wt Last Vital Signs Temp 97.7 F 08/05/21 05:31 Pulse 67 08/05/21 09:02 Resp 18 08/05/21 08:43 BP 166/95 08/05/21 06:15 Pulse Ox 96 08/05/21 09:02 08/04/21 08/05/21 08/05/21 22:59 06:59 14:59 Intake Total 300 / 300 Balance 300 / 300 Weight last 48 hrs Weight 48.398 kg Weight 72.575 kg Physical Exam Const: COMMON NORMALS: no acute distress and patient oriented x3 Resp: COMMON NORMALS: normal respiratory effort, No retractions and No use of accessory muscles AUSCULTATION: wheezes Cardio: COMMON NORMALS: regular rate, regular rhythm, S1 normal heart sound present and S2 normal heart sound present RATE: regular rate RHYTHM: regular rhythm HEART SOUNDS: S1 normal heart sound present and S2 normal heart sound present GI: COMMON NORMALS: Normal to inspection, nondistended, normoactive bowel sounds present, Soft to palpation and non-tender PALPATION: Yes Soft to palpation Extremity: COMMON NORMALS: no pedal edema Neuro: COMMON NORMALS: patient oriented x3 Psych: COMMON NORMALS: mental status grossly normal Data : 08/04/21 22:45 08/04/21 22:45 A&P Assessment and plan (1) Acute dyspnea: Patient with past medical history as outlined above presenting today with acute onset dyspnea of 1 day duration along with 2 to 3 days of cough and rhinorrhea. Differentials at this time include possible upper respiratory viral illness. Chest x-ray suggestive of possible right lower lobe atelectasis versus infiltrate. Prior CAT scans performed through 2020 showed some chronic pleural thickening and atelectasis. Continue on empiric antibiotic coverage with ceftriaxone and azithromycin for possibility of pneumonia. Ventilation/perfusion scan in October 2020 Low probability of pulmonary emboli Echocardiogram October 2020 Normal LV size ejection fraction of 65%. No gross wall motion of normalities. Mild concentric left ventricular hypertrophy. Thickened aortic and mitral valves. Mild biatrial enlargement. Trace to mild tricuspid valve regurgitation. Trace mitral and aortic valve regurgitation. Estimated pulmonary artery peak systolic pressure of 30 mmHg. Compared to the previous study from 05/21/2020, there may not be a significant Stress test in October 2020 showed 1. A small area of inconsistent reversibility in the LV apex, most likely artifactual. 2. Slightly diminished ejection fraction of 46%. 3. LV wall motion analysis revealing mild diffuse hypokinesia of the LV apex 4. Normal LV volume. -No significant delta troponin, no chest pain complaints -Unlikely ACS given no acute ST-T wave changes on EKG and negative troponin series. -We will repeat echocardiogram Differentials additionally include acute bronchitis precipitated by upper respiratory illness versus acute on chronic preserved ejection fraction CHF exacerbation given elevated BNP and lower extremity edema. Check COVID PCR negative and influenza Ag pending Start inhalation with DuoNeb and budesonide at this time Lasix 40 mg IV now, monitor urine output and kidney function. Less likely to be PE given that patient is on chronic Eliquis 5 mg twice daily for history of atrial fibrillation. 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
--- NOTE | 2021-08-05 13:29 | USCV_ITS ---
Ilana Lau Age: 75 Gender: F : 1945 Exam Date: 08/05/2021 14:23 Ordering Phys: Dick Moody MD Technologist: MARISABEL Exam Location: [facility] [place] Indication: SOB BP: 166 / 95 HR: 67 Rhythm: Sinus Technical Quality: Adequate MEASUREMENTS (Male / Female) Normal Values 2D ECHO LV Diastolic Diameter PLAX 3.8 cm 4.2 - 5.9 / 3.9 - 5.3 cm LV Systolic Diameter PLAX 2.4 cm IVS Diastolic Thickness 1.5 cm 0.6 - 1.0 / 0.6 - 0.9 cm IVS Systolic Thickness 2.1 cm LVPW Diastolic Thickness 1.6 cm 0.6 - 1.0 / 0.6 - 0.9 cm LVPW Systolic Thickness 2.0 cm LVOT Diameter 2.0 cm LV Ejection Fraction 2D Teich 68.3 % LV Ejection Fraction MOD 2C 64.6 % LV Ejection Fraction 2C AL 65.0 % LA Diameter 3.6 cm LA Width 3.9 cm LA Height 5.5 cm RA Width 2.8 cm RA Height 5.7 cm Aorta at Sinotubular Diameter 2.7 cm M-MODE Aortic Annulus Diameter 2.2 cm LA Ao Ratio MM 1.7 MV E Point Septal Separation 0.6 cm DOPPLER AV Peak Velocity 116.0 cm/s LVOT Peak Velocity 91.3 cm/s AV Area Cont Eq vti 2.3 cm squared AV Area Cont Eq pk 2.5 cm squared MV Peak Velocity 83.0 cm/s MV Area PHT 2.5 cm squared Mitral E to A Ratio 1.8 MV E' Velocity 38.5 cm/s Mitral E to MV E' Ratio 8.6 Mitral E to LV E' Lateral Ratio 8.9 Mitral E to LV E' Septal Ratio 8.3 TR Peak Velocity 256.5 cm/s TR Peak Gradient 26.3 mmHg TR Mean Velocity 206.2 cm/s TR Mean Gradient 18.3 mmHg TR Velocity Time Integral 87.6 cm TV Peak E Velocity 49.0 cm/s Right Atrial Pressure 3.0 mmHg Pulmonary Artery Systolic Pressu 29.3 mmHg PV Peak Velocity 88.0 cm/s RV Acceleration Time 0.0 s RV Ejection Time 0.3 s RV AcT/ET 0.1 FINDINGS Left Ventricle Normal left ventricular size and systolic function, EF 66 %. Mild to moderate concentric left ventricular hypertrophy Right Ventricle The right ventricle is normal in size and function. Right Atrium The right atrium is normal in size. Left Atrium Mildly increased left atrial size. Mitral Valve Mild mitral valve regurgitation. Aortic Valve No gross abnormalities noted Tricuspid Valve Trace tricuspid valve regurgitation. Pulmonic Valve No gross abnormalities noted Pericardium Normal pericardium without effusion. Aorta Normal ascending aorta dimension. CONCLUSIONS Normal left ventricular size and systolic function, EF 66 %. Mild to moderate concentric left ventricular hypertrophy. Mild mitral valve regurgitation. Trace tricuspid valve regurgitation. Mildly increased left atrial size. There is no pericardial effusion. There are no intracardiac masses. Compared to the study from 10/25/2020, there may not be a significant change Dr Yazan Angelo MD FACC (Electronically Signed) Final Date: 06 August 2021 09:24 S
[2021-08-05 14:29] LABS: C Reactive Protein 2.6 mg/L (0.0-4.9)
[2021-08-05 14:35] LABS: Erythrocyte Sedimentation Rate 7 mm/hr (0-15)
[2021-08-05 14:39] LABS: Procalcitonin 0.02 ng/mL (0-0.5)
[2021-08-05 15:42] LABS: Influenza A Not Detected (NOT DETECT); Influenza A H1 Not Detected (NOT DETECT); Influenza A H1-2009 Not Detected (NOT DETECT); Influenza A H3 Not Detected (NOT DETECT); Influenza B Not Detected (NOT DETECT); Results from GEN
[2021-08-05 15:52] LABS: D Dimer 0.57 ug/mIFEU (0-0.59)
--- NOTE | 2021-08-05 19:17 | PC.NURSE ---
Received report from MATHEW Rios. Patient up in room walking and making bed. Telemetry remains in place. Patient currently on room air with SpO2 of 91-95%. Patient reports feeling much better. No distress observed. Will continue to monitor.
[2021-08-06] VITALS (7 sets, daily range): BP systolic 125; BP diastolic 62; PULSE 59–68; RESP 17–25; TEMP 36.4; O2SAT 93–98
[2021-08-06 03:11] LABS: Basophils % 0.1 %; Hematocrit 38.6 % (37.0-47.0); Hemoglobin 12.6 g/dL (11.5-15.3); Lymphocytes # 1.6 10^3/uL (0.8-4.8); Mean Corpuscular HGB Conc 32.6 g/dL (30.0-36.0); Mean Corpuscular Hemoglobin 31.7 pg (28.0-34.0); Mean Platelet Volume 9.4 fL (7.4-10.4); Monocytes # 0.3 10^3/uL (0.2-0.9); Neutrophils # 11.26 10^3/uL (1.8-7.7); Neutrophils % 85.4 %; Nucleated Red Blood Cells % 0 %; Platelet Count 237 10^3/cmm (130-400); Red Blood Count 3.98 10^6/uL (4.1-5.3); Red Cell Distribution Width 12.3 % (12.1-15.1); White Blood Count 13.2 10^3/uL (4.0-10.0)
[2021-08-06 03:29] LABS: C Reactive Protein 10.1 mg/L (0.0-4.9)
[2021-08-06 03:47] LABS: Alanine Aminotransferase 62 U/L (0-33); Albumin Level 3.5 g/dL (3.5-5.2); Alkaline Phosphatase 72 IU/L (35-105); Anion Gap 18.2 (5-19); Aspartate Amino Transferase 47 U/L (0-32); Blood Urea Nitrogen 21 mg/dL (8-23); Calcium 9.4 mg/dL (8.5-10.5); Carbon Dioxide 24 mmol/L (22-29); Chloride 97 mmol/L (98-107); Globulin 2.7 g/dL (1.3-4.6); Glucose 138 mg/dL (65-115); Osmolality Calculated 285 mOsm/kg (285-295); Potassium 4.2 mmol/L (3.5-5.1); Sodium 135 mmol/L (136-145); Total Bilirubin 0.3 mg/dL (0.15-1.2); Total Protein 6.2 g/dL (6.6-8.7)
[2021-08-06] MEDS: levothyroxine 25 mcg Tablet PO (04:57)
[2021-08-06] MEDS: azithromycin 500 MG in sodium chloride 0.9% 250 ML 250 MG PO (05:05)
--- NOTE | 2021-08-06 07:51 | PC.NURSE ---
patient walked to nurses station with out assistance and use of walker asking for coffee patient sitting at nurses station visiting
[2021-08-06] MEDS: cefTRIAXone 1,000 MG in sodium chloride 0.9% (plus) 50 ML 100 MG IV (08:31)
[2021-08-06] MEDS: apixaban 5 mg Tablet PO (08:37)
[2021-08-06] MEDS: ipratropium-albuterol 3 mL Neb INHALATION (08:37)
[2021-08-06] MEDS: budesonide 0.5 mg/2 mL Neb INHALATION (08:37)
[2021-08-06] MEDS: pantoprazole DR 40 mg Tablet PO (08:37)
[2021-08-06] MEDS: metoprolol tartrate 50 mg Tablet PO (08:37)
--- NOTE | 2021-08-06 09:52 | PC.CHAP ---
Pastoral Care Encounter/Spiritual Assessment Type of Contact [] Declined master tax advisor visit [] Patient/Family/Request visit [] Outpatient visit [] Follow-up visit [] Physician referral [] Code/Alert [x] Routine visit [] Staff referral [] Actively dying [] Patient sleeping [x] Family support [] [] Out of room [] Palliative care [] [] Receiving care in room [] Pre-surgical visit [] Trauma [] Long length of stay [] ICU visit [] Other: Relational/Emotional Strength [] Patient feels connected with others/family/visitors/staff [] Distress [] Loneliness/isolation [] Abandonment Spirituality of Patient [] Person of Ann [] Attends Jain of their Ann [] Believes in Prayer [] Reads Bible or Anabaptism materials [] There are Spiritual issues to be addressed 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 Interventions [x] Prayer [x] Active listening [x] Non-anxious presence [x] Spiritual/emotional support [] Crisis/trauma care [] Spiritual counseling [] Bereavement support [] Provided bereavement packet [] Provided Bible/devotional materials [] Provided toy/stuffed animal, coloring book to patient or family member [] Provided Communion [] Anointing/[place] [] Salvation [x] Completed spiritual assessment [] Other: Impact on Illness or Injury [] Angry [] Fearful [] Anxious [] Often cries [] Exhaustion [] Unable to work [] Unable to attend taoism [] Unable to walk/stand [] Unable to read [] Unable to drive [] Unable to eat/drink [] Unable to sleep [] Unable to be with family [] Patient intubated [] Other: Summary wonderful patient.. working at getting healthy Time spent with patient 5 min
[2021-08-06] MEDS: FUROsemide 10 mg/mL SDV 4mL 40 MG IVP (09:56)
--- NOTE | 2021-08-06 11:34 | P.DS_ITS ---
Discharge Providers Date of Admission: 08/05/21 06:17 Date of Discharge: August 06, 2021 Attending Provider at Admission: Bridget Hicks MD Attending Provider at Discharge: Dick Moody MD Primary Care Provider: Lisa Nunn DO Diagnoses at Discharge Discharge Diagnosis (1) Acute dyspnea: Status: Acute (2) Hypoxia: Status: Acute Reason for Visit Reason for Visit: CHEST PAIN Hospital Course Hospital Course This is a 75-year-old female with a past medical history of atrial fibrillation on anticoagulation with Eliquis, hypertension, who presents to [facility] for shortness of breath Patient presented to [facility] for shortness of breath secondary to right hilar to lower lobe pneumonia, received broad-spectrum antibiotic therapy, oxygen therapy, clinically monitored. Patient symptomatology also improved with diuresis. Patient clinically improved to room air remained afebrile, discharged on albuterol, doxycycline, her home Lasix therapy with close follow-up with primary care provider as outpatient. Of note I have repeated patient's COVID-19 testing on discharge. Physical Exam Const: COMMON NORMALS: no acute distress and patient oriented x3 Resp: COMMON NORMALS: normal respiratory effort, No retractions, No use of accessory muscles and clear to auscultation bilaterally AUSCULTATION: clear to auscultation bilaterally Cardio: COMMON NORMALS: regular rate, regular rhythm, S1 normal heart sound present and S2 normal heart sound present RATE: regular rate RHYTHM: regular rhythm HEART SOUNDS: S1 normal heart sound present and S2 normal heart sound present GI: COMMON NORMALS: Normal to inspection, nondistended, normoactive bowel sounds present, Soft to palpation and non-tender PALPATION: Yes Soft to palpation Extremity: COMMON NORMALS: no pedal edema Neuro: COMMON NORMALS: patient oriented x3 Psych: COMMON NORMALS: mental status grossly normal Discharge Data Data Completed and Pending: Completed Studies During Hospitalization Category Date Time Status XR chest 1V mau ble [id number] Stat Exams 08/04/21 22:46 Completed CV. echo complete * [id number] Routine Ultrasound 08/05/21 13:29 Completed Pending at discharge Category Date Time Status Coronavirus PCR R outine Lab 08/06/21 09:50 Received Sputum Culture an d Gram Stain Stat Lab 08/05/21 13:32 Uncollected Labs from last 24 hours 08/06/21 08/06/2108/06/22 09:50 02:09 02:09 WBC RBC Hgb Hct MCV MCH MCHC RDW Plt Count MPV Neut % (Auto) Lymph % (Auto) [place] % (Auto) Eos % (Auto) Baso % (Auto) Neut # (Auto) Lymph # (Auto) [place] # (Auto) Eos # (Auto) Baso # (Auto) Nucleated RBC % (a uto) Nucleated RBCs # ESR D-Dimer Sodium 135 L Potassium 4.2 Chloride 97 L Carbon Dioxide 24 Anion Gap 18.2 BUN 21 Creatinine 0.9 GFR Calculation Not Reportable Glucose 138 H Calculated Osmolal ity 285 Calcium 9.4 Total Bilirubin 0.3 AST 47 H ALT 62 H Alkaline Phosphata se 72 C-Reactive Protein 10.1 H Total Protein 6.2 L Albumin 3.5 Globulin 2.7 Procalcitonin Nasal Influ A H1 2 009 PCR Coronavirus 229E ( PCR) Pending Influenza A (H1) P CR Influenza A (H3) P CR Influenza Type A ( PCR) Influenza Type B ( PCR) SARS-CoV-2 (PCR) Pending 08/06/21 08/05/21 08/05/21 02:09 14:56 06:43 WBC 13.2 H RBC 3.98 L Hgb 12.6 Hct 38.6 MCV 97.0 MCH 31.7 MCHC 32.6 RDW 12.3 Plt Count 237 MPV 9.4 Neut % (Auto) 85.4 Lymph % (Auto) 12.0 [place] % (Auto) 2.0 Eos % (Auto) 0.0 Baso % (Auto) 0.1 Neut # (Auto) 11.26 H Lymph # (Auto) 1.6 [place] # (Auto) 0.3 Eos # (Auto) 0.0 Baso # (Auto) 0.0 Nucleated RBC % (a uto) 0 Nucleated RBCs # 0.0 ESR D-Dimer 0.57 Sodium Potassium Chloride Carbon Dioxide Anion Gap BUN Creatinine GFR Calculation Glucose Calculated Osmolal ity Calcium Total Bilirubin AST ALT Alkaline Phosphata se C-Reactive Protein Total Protein Albumin Globulin Procalcitonin Nasal Influ A H1 2 009 PCR Not detected Coronavirus 229E ( PCR) Influenza A (H1) P CR Not detected Influenza A (H3) P CR Not detected Influenza Type A ( PCR) Not detected Influenza Type B ( PCR) Not detected SARS-CoV-2 (PCR) 08/05/21 08/05/21 08/05/21 06:43 04:50 04:50 WBC RBC Hgb Hct MCV MCH MCHC RDW Plt Count MPV Neut % (Auto) Lymph % (Auto) [place] % (Auto) Eos % (Auto) Baso % (Auto) Neut # (Auto) Lymph # (Auto) [place] # (Auto) Eos # (Auto) Baso # (Auto) Nucleated RBC % (a uto) Nucleated RBCs # ESR D-Dimer Sodium Potassium Chloride Carbon Dioxide Anion Gap BUN Creatinine GFR Calculation Glucose Calculated Osmolal ity Calcium Total Bilirubin AST ALT Alkaline Phosphata se C-Reactive Protein 2.6 Total Protein Albumin Globulin Procalcitonin 0.02 Nasal Influ A H1 2 009 PCR Coronavirus 229E ( PCR) Not detected Influenza A (H1) P CR Influenza A (H3) P CR Influenza Type A ( PCR) Influenza Type B ( PCR) SARS-CoV-2 (PCR) Not detected 08/04/21 22:45 WBC RBC Hgb Hct MCV MCH MCHC RDW Plt Count MPV Neut % (Auto) Lymph % (Auto) [place] % (Auto) Eos % (Auto) Baso % (Auto) Neut # (Auto) Lymph # (Auto) [place] # (Auto) Eos # (Auto) Baso # (Auto) Nucleated RBC % (a uto) Nucleated RBCs # ESR 7 D-Dimer Sodium Potassium Chloride Carbon Dioxide Anion Gap BUN Creatinine GFR Calculation Glucose Calculated Osmolal ity Calcium Total Bilirubin AST ALT Alkaline Phosphata se C-Reactive Protein Total Protein Albumin Globulin Procalcitonin Nasal Influ A H1 2 009 PCR Coronavirus 229E ( PCR) Influenza A (H1) P CR Influenza A (H3) P CR Influenza Type A ( PCR) Influenza Type B ( PCR) SARS-CoV-2 (PCR) Vitals: Last Vital Signs Temp 97.5 F L 08/06/21 04:00 Pulse 68 08/06/21 08:47 Resp 18 08/06/21 08:47 BP 125/62 08/06/21 05:05 Pulse Ox 97 08/06/21 08:47 Discharge Plan Discharge Patient Disposition: Home Condition: Stable Prescriptions: New levothyroxine 25 mcg Tablet 25 mcg PO QAM 30 Days Qty: 30 RF: 0 benzonatate 100 mg Capsule 100 mg PO TID PRN (Reason: Cough) 15 Days Qty: 45 RF: 0 pantoprazole 40 mg Tablet,Delayed Release (Dr/Ec) 40 mg PO DAILY 30 Days Qty: 30 RF: 0 prednisone 20 mg tablet 20 mg PO BID 5 Days Qty: 10 RF: 0 doxycycline hyclate 100 mg tablet 100 mg PO BID 5 Days Qty: 10 RF: 0 albuterol sulfate 90 mcg/actuation HFA aerosol inhaler 1 inh inhalation Q6H PRN (Reason: shortness of breath or wheezing) Qty: 8.5 RF: 0 Continued probiotic 1 cap PO DAILY RF: 0 furosemide [Lasix] 40 mg tablet 60 mg PO DAILY Qty: 135 RF: 3 potassium chloride 10 mEq tablet extended release 30 meq PO DAILY Qty: 270 RF: 3 propafenone 150 mg tablet See Rx Instructions .ROUTE .COMPLEX RF: 0 metoprolol tartrate 50 mg tablet 50 mg PO BID@ RF: 0 Tylenol PM Extra Strength 25-500 mg Tablet 1 tab PO BEDTIME PRN (Reason: sleep/headache) RF: 0 Eliquis 5 mg tablet 5 mg PO BID@ RF: 0 Discontinued levothyroxine 25 mcg tablet 25 mcg PO QAM RF: 0 Discharge Orders: Discharge Order (Routine); Ordered 08/06/21 Ordered By: Dick Moody Referrals: Lisa Nunn DO [Primary Care Provider] - 7-10 days (We have arranged a follow up appointment with Dr. Nunn on at. If you are unable to keep this arrangement please contact your providers office to arrange you follow up care.) Discharge Diet: Cardiac Discharge Activity: Resume usual activity Patient Instructions: Benzonatate (By mouth), Doxycycline (By mouth), Levothyroxine (By mouth), Albuterol (By breathing), Prednisone (By mouth), Pantoprazole (By mouth), Opioid Safety Activity Restrictions/Additional Instructions: -take doxycycline and prednisone as prescribed, take albuterol Discharge Attestations Time Spent in Discharge Care*: less than 30 min Quality Metrics Clinical Quality Measures During this hospital stay, did patient experience: None Coding Level of Care Code Acute Chg FW DC note Exam Detailed Diagnoses Acute dyspnea R06.00 Hypoxia R09.02
--- NOTE | 2021-08-06 13:30 | PC.NURSE ---
Discharge Note Patient discharged to Home via accompanied by family. Discharge instructions reviewed with patient and/or public health representative. Mobile pharmacy medications and/or prescriptions provided. Belongings/home medications returned.
[2021-08-06 15:10] LABS: Adenovirus Not Detected (NOT DETECT); Chlamydia Pneumoniae Not Detected (NOT DETECT); Coronavirus 229E,HKU1,NL63,OC4 Not Detected (NOT DETECT); Human Metapneumovirus Not Detected (NOT DETECT); Human Rhinovirus/Enterovirus Not Detected (NOT DETECT); Influenza A Not Detected (NOT DETECT); Influenza A H1 Not Detected (NOT DETECT); Influenza A H1-2009 Not Detected (NOT DETECT); Influenza A H3 Not Detected (NOT DETECT); Influenza B Not Detected (NOT DETECT); Mycoplasma Pneumoniae Not Detected (NOT DETECT); Parainfluenza Virus Type 1 Not Detected (NOT DETECT); Parainfluenza Virus Type 2 Not Detected (NOT DETECT); Parainfluenza Virus Type 3 Not Detected (NOT DETECT); Parainfluenza Virus Type 4 Not Detected (NOT DETECT); Respiratory Syncytial Virus A Not Detected (NOT DETECT); Respiratory Syncytial Virus B Not Detected (NOT DETECT); SARS-COV-2 Not Detected (NOT DETECT)
== END 2021-08-06 12:55 | disposition home or self-care (01) | DRG 193 ==
LOC: ER 08-05 04:11 → CSU 08-05 05:04
PROVIDERS: Nurse Practitioner Family; Admitting Provider Student in an Organized Health Care Education/Training Program; Emergency Provider Emergency Medicine; PCP Family Medicine; Visit Provider Family Medicine
DX: J18.9 Pneumonia, unspecified organism (principal); I50.33 Acute on chronic diastolic (congestive) heart failure; I48.20 Chronic atrial fibrillation, unspecified; K57.90 Diverticulosis of intestine, part unspecified, without perforation or abscess without bleeding; I11.0 Hypertensive heart disease with heart failure; E89.0 Postprocedural hypothyroidism; Z79.01 Long term (current) use of anticoagulants
CPT/HCPCS: 36415; 71045; 80053; 83690; 83735; 83880; 84145; 84439; 84443; 84484; 85025; 85378; 85651; 86140; 86403; 87631; 87635; 93005; 93306; 94640; 94664; 97116; 97161; 97165; 99285; J0456; J0696; J1940; J2920; J7050; J7626

== ENCOUNTER → 2022-01-01 10:07 | Outpatient (BNVA) | payer MEDICARE, MEDICAID, SELFPAY | PROVIDERS: PCP Family Medicine; Visit Provider Internal Medicine Cardiovascular Disease | DX: I11.0 Hypertensive heart disease with heart failure (principal); I50.32 Chronic diastolic (congestive) heart failure; Z79.899 Other long term (current) drug therapy; I48.20 Chronic atrial fibrillation, unspecified | CPT/HCPCS: 80048; 83880; 99214 ==

== ENCOUNTER → 2022-02-28 12:19 | Outpatient (BNVA) | payer MEDICARE, MEDICAID, SELFPAY | PROVIDERS: PCP Family Medicine; Visit Provider Family Medicine | DX: R05.9 Cough, unspecified (principal); R50.9 Fever, unspecified; J18.9 Pneumonia, unspecified organism | CPT/HCPCS: 87426 ==

== ENCOUNTER → 2022-03-31 13:10 | Outpatient (BNVA) | payer MEDICARE, MEDICAID, SELFPAY | PROVIDERS: PCP Family Medicine; Visit Provider Urology | DX: N81.10 Cystocele, unspecified (principal); N39.41 Urge incontinence; N81.6 Rectocele; N81.89 Other female genital prolapse | CPT/HCPCS: 51798; 52000; 81003; 99203 ==

== ENCOUNTER 2022-06-11 02:48 | Inpatient (IN) | payer MEDICARE, MEDICAID, SELFPAY ==
[2022-06-11] VITALS (56 sets, daily range): BP systolic 101–173; BP diastolic 50–93; PULSE 53–72; RESP 7–43; TEMP 36.5–37.2; O2SAT 86–98; BMI 29.5
--- NOTE | 2022-06-11 02:50 | XRR_ITS ---
PROCEDURE INFORMATION: Exam: XR Chest Exam date and time: 06/11/2022 3:54 AM Age: 76 years old Clinical indication: Chest pressure; Patient HX: C/O chest pain; Additional info: Cp TECHNIQUE: Imaging protocol: Radiologic exam of the chest. Views: 1 view. COMPARISON: CR XR chest 1V portable [id number] 08/04/2021 11:02 PM FINDINGS: Lungs: Normal lung volumes. Some unchanged emphysematous changes are noted in the upper lung zones. No interstitial or airspace opacities. Pleural spaces: No pleural effusion. No pneumothorax. Heart/Mediastinum: Unchanged mild cardiomegaly. There is a mildly tortuous thoracic aorta. Midline trachea. Bones/joints: No acute abnormalities. Small degenerative osteophytes and mild degenerative disc disease changes are seen in the mid to lower thoracic spine. XR/XR chest 1V portable [id number] IMPRESSION: 1. No confluent infiltrates in the lungs. 2. Unchanged mild cardiomegaly.
--- NOTE | 2022-06-11 02:51 | ED_ITS ---
HPI - Chest Pain General: Chief Complaint: Chest Pain Stated Complaint: CP Time Seen by Provider: 06/11/22 02:50 Source: patient and EMS Mode of arrival: EMS Limitations: no limitations History of Present Illness: 76-year-old female states she has been having chest pain over the last 12 hours states that sharp pain in the center of her chest is worse with deep inspiration and seems to radiate to her back. She states her pain is currently a 2 out of 10 she did receive aspirin in route denies any vomiting denies any diarrhea denies any diaphoresis denies any abdominal pain. Associated symptoms: Deny abdominal pain, dyspnea, fever(s), nausea or vomiting Review of Systems Const: Denies: fever(s), chills, body aches or change in appetite Eyes: Denies: blurry vision or eye discomfort ENMT: Denies: throat pain or dental pain Card: Reports: chest pain Resp: Denies: dyspnea GI: Denies: abdominal pain, nausea, vomiting or diarrhea : Denies: dysuria Musc: Denies: neck pain or back pain Skin/Breast: Denies: rash Neuro: Denies: headache(s) Psych: Denies: depression [place]/Lymph: Denies: easy bruising All/Imm: Denies: urticaria PFSH ED PFSH: Medical History Afib Diverticulosis Hypertension Rectocele Shortness of breath Surgical History H/O thyroidectomy H/O: hysterectomy History of tubal ligation Hx of appendectomy Family History (Updated 05/18/22 @ 13:[address] RN) Father , unknown age CAD (coronary artery disease) Brother , age unknown Cancer colon Sister Cancer lungs Mother , in late 60s Lung disease Denies family history of Colon cancer Ovarian cancer Diabetes Clotting disorder Hyperlipidemia Chronic kidney disease (CKD) Breast cancer Suicide Anesthesia complication Bleeding disorder Uterine cancer Thyroid condition Stroke Social History Smoking and tobacco status: former smoker Current occupational status: retired Physical Exam Const: COMMON NORMALS: no acute distress, patient oriented x3 and healthy appearing HENMT: COMMON NORMALS: normocephalic and atraumatic HEAD & SCALP: no rmocephalic and atraumatic Eye: COMMON NORMALS: Equal, round and reactive pupils present and EOMs intact bilaterally PUPIL: Yes Equal, round and reactive pupils present Neck/C-Spine: COMMON NORMALS: full ROM and supple Chest: COMMONS NORMALS: normal inspection of the chest and normal palpation of entire chest wall Resp: COMMON NORMALS: normal respiratory effort, No retractions, No use of accessory muscles and clear to auscultation bilaterally AUSCULTATION: clear to auscultation bilaterally Cardio: COMMON NORMALS: regular rate, regular rhythm and No murmurs present (Cardio) RATE: regular rate RHYTHM: regular rhythm GI: COMMON NORMALS: Normal to inspection, nondistended, normoactive bowel sounds present, Soft to palpation, non-tender and no masses PALPATION: Yes Soft to palpation Extremity: COMMON NORMALS: normal to inspection and full ROM Neuro: COMMON NORMALS: patient oriented x3, moves all extremities and no focal motor deficits Psych: COMMON NORMALS: mental status grossly normal, Normal thought process present and cooperative THOUGHT PROCESS: Normal thought process present Skin: COMMON NORMALS: no rashes or lesions noted and no wounds GENERAL SKIN EXAM: no rashes or lesions noted Course Vital Signs: Vital signs: Vital Signs Temperature 98.5 F 06/11/22 03:09 Pulse Rate 54 L 06/11/22 03:09 Respiratory Rate 19 H 06/11/22 03:09 Blood Pressure 173/91 06/11/22 03:09 Pulse Oximetry 96 06/11/22 03:09 Oxygen Delivery Me thod 06/11/22 03:09 MDM - Chest Pain Medical Decision Making Patient presents here with chest pain along with elevated troponin her EKG here showed no signs of ST elevation she is pain-free currently she does have an elevated troponin consistent with an NSTEMI. Will start on Lovenox I spoke to Dr. Easton of cardiology along with hospitalist and will admit. Lab Data 06/11/22 02:50 06/11/22 02:50 Laboratory Results WBC 9.8 10^3/uL (4.0-10.0) 06/11/22 02:50 RBC 4.28 10^6/uL (4.1-5.3) 06/11/22 02:50 Hgb 13.6 g/dL (11.5-15.3) 06/11/22 02:50 Hct 41.3 % (37.0-47.0) 06/11/22 02:50 MCV 96.5 fl (81-99) 06/11/22 02:50 MCH 31.8 pg (28.0-34.0) 06/11/22 02:50 MCHC 32.9 g/dL (30.0-36.0) 06/11/22 02:50 RDW 12.6 % (12.1-15.1) 06/11/22 02:50 Plt Count 270 10^3/cmm (130-400) 06/11/22 02:50 MPV 9.3 fL (7.4-10.4) 06/11/22 02:50 Neut % (Auto) 58.8 % 06/11/22 02:50 Lymph % (Auto) 31.8 % 06/11/22 02:50 [place] % (Auto) 7.0 % 06/11/22 02:50 Eos % (Auto) 1.2 % 06/11/22 02:50 Baso % (Auto) 0.9 % 06/11/22 02:50 Neut # (Auto) 5.75 10^3/uL (1.8-7.7) 06/11/22 02:50 Lymph # (Auto) 3.1 10^3/uL (0.8-4.8) 06/11/22 02:50 [place] # (Auto) 0.7 10^3/uL (0.2-0.9) 06/11/22 02:50 Eos # (Auto) 0.1 10^3/uL (0.0-0.8) 06/11/22 02:50 Baso # (Auto) 0.1 10^3/uL (0.0-0.1) 06/11/22 02:50 Nucleated RBC % (auto) 0 % 06/11/22 02:50 Nucleated RBCs # 0.0 /100WBC 06/11/22 02:50 D-Dimer 0.36 ug/mIFEU (0-0.59) 06/11/22 02:50 Sodium 139 mmol/L (136-145) 06/11/22 02:50 Potassium 4.3 mmol/L (3.5-5.1) 06/11/22 02:50 Chloride 99 mmol/L (98-107) 06/11/22 02:50 Carbon Dioxide 28 mmol/L (22-29) 06/11/22 02:50 Anion Gap 16.3 (5-19) 06/11/22 02:50 BUN 22 mg/dL (8-23) 06/11/22 02:50 Creatinine 1.2 mg/dL (0.5-0.9) H 06/11/22 02:50 GFR Calculation Not Reportable 06/11/22 02:50 Glucose 132 mg/dL (65-115) H 06/11/22 02:50 Calculated Osmolality 293 mOsm/kg (285-295) 06/11/22 02:50 Calcium 9.3 mg/dL (8.5-10.5) 06/11/22 02:50 Total Bilirubin 0.4 mg/dL (0.15-1.2) 06/11/22 02:50 AST 43 U/L (0-32) H 06/11/22 02:50 ALT 18 U/L (0-33) 06/11/22 02:50 Alkaline Phosphatase 50 U/L (35-105) 06/11/22 02:50 Troponin T Baseline 478 ng/L (0-10) H* 06/11/22 02:50 Total Protein 7.5 g/dL (6.6-8.7) 06/11/22 02:50 Albumin 4.2 g/dL (3.5-5.2) 06/11/22 02:50 Globulin 3.3 g/dL (1.3-4.6) 06/11/22 02:50 Lipase 10 U/L (13-60) L 06/11/22 02:50 EKG Data EKG 1: I personally reviewed and interpreted this EKG as follows: EKG interpretation date: 06/11/22 EKG interpretation time: 02:56 Interpretation: sinus diomedes hr [address] or t wave abnormalities qrs 106 qtc 456 Critical Care Time Critical Care Time: Critical Care Time: Yes Total Critical Care Time: 35 Attestation: The high probability of a clinically significant, sudden or life threatening deterioration of the patient's cv system(s) required my full and direct attention, intervention and personal management. The critical care time is as shown. This time is in addition to time spent performing any reported procedures but includes the following: [x] Data and vital sign review and interpretation [x] Patient assessment, examination and intervention [x] Documentation [x] Medication orders and management Discharge Plan Discharge Patient Disposition: Admitted As Inpatient Clinical Impression: Non-ST elevation ID (NSTEMI) Condition: Stable Coding Level of Care Code ED Manager Apple for Adan Fwd Exam Comprehensive
[2022-06-11 03:01] LABS: Basophils # 0.1 10^3/uL (0.0-0.1); Basophils % 0.9 %; Eosinophils # 0.1 10^3/uL (0.0-0.8); Eosinophils % 1.2 %; Hematocrit 41.3 % (37.0-47.0); Hemoglobin 13.6 g/dL (11.5-15.3); Lymphocytes # 3.1 10^3/uL (0.8-4.8); Lymphocytes % 31.8 %; Mean Corpuscular HGB Conc 32.9 g/dL (30.0-36.0); Mean Corpuscular Hemoglobin 31.8 pg (28.0-34.0); Mean Corpuscular Volume 96.5 fl (81-99); Mean Platelet Volume 9.3 fL (7.4-10.4); Monocytes # 0.7 10^3/uL (0.2-0.9); Neutrophils # 5.75 10^3/uL (1.8-7.7); Neutrophils % 58.8 %; Nucleated Red Blood Cells % 0 %; Platelet Count 270 10^3/cmm (130-400); Red Blood Count 4.28 10^6/uL (4.1-5.3); Red Cell Distribution Width 12.6 % (12.1-15.1); White Blood Count 9.8 10^3/uL (4.0-10.0)
[2022-06-11] MEDS: morphine 4 mg/mL SDV 1 mL IVP (03:02)
[2022-06-11] MEDS: ondansetron 2 mg/ML SDV 2 mL 4 MG IVP (03:02)
[2022-06-11] MEDS: hyDRALAzine 20 mg/mL INJ 1 mL 10 MG IVP (03:11)
[2022-06-11 03:15] LABS: D Dimer 0.36 ug/mIFEU (0-0.59)
[2022-06-11 03:21] LABS: Alanine Aminotransferase 18 U/L (0-33); Albumin Level 4.2 g/dL (3.5-5.2); Alkaline Phosphatase 50 U/L (35-105); Anion Gap 16.3 (5-19); Aspartate Amino Transferase 43 U/L (0-32); Blood Urea Nitrogen 22 mg/dL (8-23); Calcium 9.3 mg/dL (8.5-10.5); Carbon Dioxide 28 mmol/L (22-29); Chloride 99 mmol/L (98-107); Globulin 3.3 g/dL (1.3-4.6); Glucose 132 mg/dL (65-115); Lipase 10 U/L (13-60); Osmolality Calculated 293 mOsm/kg (285-295); Potassium 4.3 mmol/L (3.5-5.1); Sodium 139 mmol/L (136-145); Total Bilirubin 0.4 mg/dL (0.15-1.2); Total Protein 7.5 g/dL (6.6-8.7)
[2022-06-11 03:26] LABS: Troponin(5th) Baseline 478 ng/L (0-10)
[2022-06-11] MEDS: enoxaparin 80 mg/0.8 mL Syringe 75 MG SUBCUT ×2 (03:30→17:59)
[2022-06-11] MEDS: morphine 4 mg/mL SDV 1 mL IM (03:51)
--- NOTE | 2022-06-11 04:49 | USCV_ITS ---
Ilana Lau Age: 76 Gender: F : 1945 Exam Date: 06/11/2022 05:59 Ordering Phys: Bridget Hicks MD Technologist: MARISABEL Exam Location: [facility] [place]_ Indication: RWMA, EVAL EF BP: 120 / 72 HR: 58 Rhythm: Sinus Technical Quality: Adequate MEASUREMENTS (Male / Female) Normal Values 2D ECHO LVOT Diameter 2.0 cm LV Ejection Fraction MOD 2C 51.1 % LV Ejection Fraction 2C AL 52.2 % LA Diameter 3.7 cm LA Width 3.8 cm LA Height 5.4 cm RA Width 3.8 cm RA Height 4.3 cm Aorta at Sinotubular Diameter 2.8 cm IVC Diameter 1.4 cm M-MODE Aortic Annulus Diameter 2.7 cm LA Ao Ratio MM 1.4 MV E Point Septal Separation 0.5 cm DOPPLER Right Atrial Pressure 3.0 mmHg FINDINGS Left Ventricle Severe diffuse hypokinesia of the left ventricular apex. LV ejection fraction of 39%. Right Ventricle Normal LV size ejection fraction Right Atrium Appears to be of normal size Left Atrium Mildly increased left atrial size. Mitral Valve Minimally thickened mitral valve Aortic Valve Thickened aortic valve. Tricuspid Valve No gross abnormalities noted Pulmonic Valve Could not be visualized well Pericardium No pericardial effusion. Aorta Normal aortic annulus size. IVC Normal inferior vena cava. CONCLUSIONS Severe diffuse hypokinesia of the LV apex suggesting apical ballooning. LV ejection fraction 39% Mildly increased left atrial size. Normal RV size and ejection fraction. There is no pericardial effusion. There are no intracardiac masses. 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
--- NOTE | 2022-06-11 04:50 | ECG_ITS ---
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 Measurements Intervals [place] Rate: 56 P: 74 MO: 225 QRS: 58 QRSD: 99 T: 46 QT: 476 QTc: 459 Interpretive Statements SINUS BRADYCARDIA WITH FIRST DEGREE AV BLOCK Compared to ECG 08/05/2021 04:38:54 Sinus rhythm no longer present Sinus arrhythmia no longer present ST (T wave) deviation no longer present Electronically Signed On 06-12-2022 6:33:23 KILN TESTER by Darci Ruiz M.D. [email or web address]
--- NOTE | 2022-06-11 04:53 | P.HP_ITS ---
Providers/Chief Complaint Admitting Physician: Bridget Hicks MD Primary Care Provider: Lisa Nunn DO Chief Complaint: CP History of Present Illness Ilana Lau is a 76 year old female with?chronic episodic Afib, carotid stenosis, hypertension presenting to the ER with chief complaints of chest pain over the last 12 hours. States that it is located in the middle of her chest, worse with deep inspiration. Denies any associated nausea vomiting diarrhea or dyspnea. Reports palpitations. EKG today shows sinus bradycardia with first- degree AV block. Baseline troponin is elevated at ~400. Her last stress test dates back to October 2020 where she was noted to have a small area of inconsistent reversibility in the LV apex with slightly diminished EF of 46%. Last echo from July 2021 was without any wall motion abnormalities. Review of Systems General: Reports: 10 or more systems reviewed and unremarkable except in HPI and below Const: Denies: fever(s), chills or body aches Eyes: Denies: change in vision, blurry vision or photophobia ENMT: Reports: hoarseness; Denies: throat pain, enlarged tonsils, odynophagia or nasal congestion Card: Denies: chest pain, palpitations, irregular heart rhythm, edema, swelling of feet/ankles, lightheadedness, pre-syncope, dyspnea on exertion or orthopnea Resp: Denies: dyspnea, productive cough, non-productive cough, wheezing, stridor, pain on inspiration, change in phlegm color, hemoptysis or chest congestion GI: Denies: abdominal pain, nausea, vomiting, hematemesis, coffee ground emesis, dysphagia, heartburn, diarrhea, constipation, GI cramping, change in stool character, hematochezia or melena : Denies: flank pain, difficulty voiding, dysuria, urinary frequency, urinary urgency, urinary hesitancy or hematuria Musc: Denies: neck pain, back pain, extremity pain, joint swelling, joint warmth or deformity Neuro: Denies: headache(s), numbness in extremities, weakness in extremities, sensory changes, difficulty walking, frequent falls, dizziness, vertigo, behavioral changes, Slurred speech present or seizure-like activity Psych: Denies: anxiety, depression, suicidal ideation or homicidal ideation Endo: Denies: polyuria, polydipsia, tired all the time, cold intolerance or hot flashes Dawit/Lymph: Denies: easy bruising or easy bleeding Medications/Allergies Home Medications Medication Instructions Recorded Confirmed Last Taken Type probiotic 1 cap PO DAILY 05/19/21 05/18/22 Unknown History diphenhydramine 25 1 tab PO BEDTIME PRN sleep/headache 08/05/21 05/18/22 Unknown History mg-acetaminophen 500 mg tablet (Tylenol PM Extra Strength) albuterol sulfate 90 mcg/actuation 1 inh inhalation Q6H PRN shortness 08/06/21 06/11/22 Unknown Rx aerosol inhaler of breath or wheezing #8.5 grams metoprolol tartrate 50 mg tablet 50 mg PO BID@ #180 tabs 11/10/21 06/11/22 06/10/22 Rx levothyroxine 25 mcg tablet 25 mcg PO DAILY 01/01/22 06/11/22 06/10/22 History (Euthyrox) pantoprazole 40 mg tablet,delayed 40 mg PO DAILY 01/01/22 05/18/22 Unknown History release furosemide 40 mg tablet (Lasix) 40 mg PO DAILY edema #135 tabs 01/02/22 06/11/22 06/10/22 Rx potassium chloride 10 mEq 20 meq PO DAILY #270 tabs 01/02/22 06/11/22 06/10/22 Rx tablet,extended release apixaban 5 mg tablet (Eliquis) 5 mg PO BID@18 #180 tabs 02/26/22 06/11/22 06/10/22 06:00 Rx oxybutynin chloride 5 mg 5 mg PO DAILY overactive bladder 05/18/22 06/11/22 1 08/10/21 11:00 Rx tablet,extended release 24 hr #30 tabs fenofibrate 54 mg tablet 54 mg PO DAILY 06/11/22 06/11/22 Unknown History propafenone 150 mg tablet See Rx Instructions .Route .COMPLEX 06/11/22 06/11/22 Unknown History Allergies Allergy/AdvReac Type Severity Reaction Status Date / Time atorvastatin [From Lipitor] Allergy ADR-Muscle Verified 06/11/22 02:54 Pain PFSH Acute PFSH: Medical History Afib Diverticulosis Hypertension Rectocele Shortness of breath Surgical History H/O thyroidectomy H/O: hysterectomy History of tubal ligation Hx of appendectomy Family History Father , unknown age CAD (coronary artery disease) Brother , age unknown Cancer colon Sister Cancer lungs Mother , in late 60s Lung disease Denies family history of Colon cancer Ovarian cancer Diabetes Clotting disorder Hyperlipidemia Chronic kidney disease (CKD) Breast cancer Suicide Anesthesia complication Bleeding disorder Uterine cancer Thyroid condition Stroke Social History Smoking and tobacco status: former smoker Current occupational status: retired Vitals/I&O/Wt Last Vital Signs Temp 97.9 F 06/11/22 04:29 Pulse 57 L 06/11/22 04:17 Resp 14 06/11/22 04:17 BP 120/72 06/11/22 04:17 Pulse Ox 92 06/11/22 04:17 O2 Del Method 06/11/22 04:15 Weight last 48 hrs Weight 75.75 kg Physical Exam Narrative: General: No acute distress, AO x3 HEENT: PERRLA, pupils bilaterally equal and reactive, pallors not present Chest: Normal vesicular breath sounds, no added sounds, equal good air entry bilaterally CVS: S1-S2 regular, no murmurs, no tachycardia, no gallops, no rubs Abdomen: Soft, nontender, no organomegaly, bowel sounds present Neuro: No focal deficits, no facial deformity, AO x3, power 5/5 in all limbs Data 06/11/22 02:50 06/11/22 02:50 A&P Assessment and plan (1) Non-ST elevation ID (NSTEMI): 76-year-old lady with known cardiac risk factors presenting tonight with chest pain, EKG without acute ST-T wave changes. Baseline troponin elevated at 478. Pending 2 and 6 hours.. Currently she is chest pain-free. She has received aspirin 325 & nitro in route to the ER. We will start her on aspirin 81 mg p.o. daily. Hold Eliquis for now. Instead we will be using full dose Lovenox 1 mg/kg subcutaneously every 12 hours for NSTEMI. Noted to be bradycardic with heart rate of 59, will hold metoprolol, continue propafenone for now. Cardiology has been consulted from the ER to evalute for angiogram N.p.o. postmidnight in case needs angiogram. 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
--- NOTE | 2022-06-11 04:59 | ECG_ITS ---
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 Measurements Intervals [place] Rate: 55 P: 72 MT: 216 QRS: -25 QRSD: 100 T: 32 QT: 428 QTc: 409 Interpretive Statements SINUS BRADYCARDIA WITH FIRST DEGREE AV BLOCK BORDERLINE LEFT AXIS DEVIATION [QRS AXIS < -20] NONSPECIFIC ST & T-WAVE ABNORMALITY Compared to ECG 06/11/2022 03:47:41 T-wave abnormality now present Electronically Signed On 06-12-2022 6:27:08 [employer]ENEER [employer] by Darci Ruiz M.D. [id number]
[2022-06-11 06:14] LABS: Troponin 5 2HR 436.3 ng/L (0-10)
[2022-06-11] MEDS: propafenone 150 mg Tablet 300 MG PO ×2 (06:17→15:15)
--- NOTE | 2022-06-11 06:25 | PC.NURSE ---
Spoke with regarding patients order for popafenone, 1st dose was ordered for 5am with another dose due at 9am. Dose was given at 6am by nurse, said hold 9am dose as dose was given at 6am.
[2022-06-11] MEDS: morphine 4 mg/mL SDV 1 mL 2 MG IVP ×3 (07:04→20:19)
[2022-06-11] MEDS: nitroglycerin 1 gm/inch oint Pkt 0.5 INCH TOPICAL ×3 (07:10→20:19)
--- NOTE | 2022-06-11 08:31 | PC.NURSE ---
at approx 0705 pt c/o left sided chest pain.rating pain 8/10.no radiation.no sob.no diaphoresis.bp 146/73.hr sr 58 bpm.ekg obtained..08/16 inch ntg paste applied and 2 mg mso4 given as ordered. chest pain resolved after approx 5 min.bp dwh170/93.hr 60.
--- NOTE | 2022-06-11 08:48 | P.CONIM_ITS ---
Providers/Reason For Consult Consulting Physician/Specialty*: Darci Ruiz MD/ Cardiology Reason for Consult*: NSTEMI Requesting Physician: Dr Negro Attending Physician: Salomon Rodriguez MD Primary Care Provider: Lisa Nunn DO History of Present Illness History of Present Illness Ilana Lau is a 76 year old female with past medical history of atrial fibrillation, carotid stenosis, hypertension who presented to the hospital with several hours of substernal chest discomfort. She feels tightness in the middle of the chest radiating to the back. Her initial troponin was over 400 that trended up to 772 at 6 hours. Patient has no prior CAD history. Review of Systems Narrative: CONSTITUTIONAL: No fever chills weight loss or gain or night sweats. [] HEENT: Normocephalic, atraumatic.[] RESPIRATORY: Has shortness of breath CARDIOVASCULAR: Chest pain GI: no nausea vomiting diarrhea. [] TRANSIT WORKER: No numbness, tingling, weakness or loss of function in any part of the body. [] MUSCULOSKELETAL: No knee or joint pain or rashes. [] Medications/Allergies Home Medications Medication Instructions Recorded Confirmed Last Taken Type diphenhydramine 25 1 tab PO BEDTIME PRN sleep/headache 08/05/21 06/11/22 Unknown History mg-acetaminophen 500 mg tablet (Tylenol PM Extra Strength) metoprolol tartrate 50 mg tablet 50 mg PO BID@ #180 tabs 11/10/21 06/11/22 Unknown Rx levothyroxine 25 mcg tablet 25 mcg PO QAM 01/01/22 06/11/22 Unknown History (Euthyrox) furosemide 40 mg tablet (Lasix) 40 mg PO DAILY edema #135 tabs 01/02/22 06/11/22 Unknown Rx potassium chloride 10 mEq 20 meq PO DAILY #270 tabs 01/02/22 06/11/22 Unknown Rx tablet,extended release apixaban 5 mg tablet (Eliquis) 5 mg PO BID@ #180 tabs 02/26/22 06/11/22 Unknown Rx oxybutynin chloride 5 mg 5 mg PO DAILY overactive bladder 05/18/22 06/11/22 06/10/22 11:00 Rx tablet,extended release 24 hr #30 tabs L.acidophil-L.casei-B.bifid-B.longum-FOS 1 cap PO DAILY 06/11/22 06/11/22 Unknown History 2 billion cell-50 mg capsule (Probiotic Blend) albuterol sulfate 90 mcg/actuation 2 puff inhalation Q6H PRN 06/11/22 06/11/22 U nknown History aerosol inhaler Shortness Of Breath fenofibrate 54 mg tablet 54 mg PO DAILY 06/11/22 06/11/22 Unknown History propafenone 150 mg tablet See Rx Instructions .Route .COMPLEX 06/11/22 06/11/22 Unknown History Allergies Allergy/AdvReac Type Severity Reaction Status Date / Time atorvastatin [From Lipitor] Allergy ADR-Muscle Verified 06/11/22 08:55 Pain Current Medications Generic Name Dose Route Start Last Admin Trade Name Freq PRN Reason Stop Dose Admin Morphine Sulfate 2 mg 06/11/22 04:43 06/11/22 07:04 Morphine 4 Mg/Ml Sdv 1 Ml IVP 2 mg Q4H PRN Administration SEVERE PAIN Nitroglycerin 0.5 inch 06/11/22 04:49 06/11/22 07:10 Nitroglycerin 1 Gm/Inch Oint Pkt TOPICAL 0.5 inch Q6H PRN Administration chest pain Propafenone HCl 300 mg 06/11/22 05:00 06/11/22 06:57 Propafenone 150 Mg Tablet PO Not Given BID@0900,1500 RETA PFSH Acute PFSH: Medical History (Updated 06/12/22 @ 06:08 by Darci Ruiz M.D) Afib Blood in stool Chronic diastolic CHF (congestive heart failure) Chronic episodic atrial fibrillation Cystocele Diverticulosis Hypertension POP-Q stage 3 rectocele Rectocele Shortness of breath Surgical History H/O thyroidectomy H/O total knee replacement right knee H/O: hysterectomy History of colonoscopy with polypectomy 2019 History of tubal ligation Hx of appendectomy Family History Father , unknown age CAD (coronary artery disease) Brother , age unknown Cancer colon Sister Cancer lungs Mother , in late 60s Lung disease Denies family history of Colon cancer Ovarian cancer Diabetes Clotting disorder Hyperlipidemia Chronic kidney disease (CKD) Breast cancer Suicide Anesthesia complication Bleeding disorder Uterine cancer Thyroid condition Stroke Social History Smoking and tobacco status: former smoker Current occupational status: retired Vitals/I&O/Wt Last Vital Signs Temp 97.8 F 06/11/22 08:00 Pulse 56 L 06/11/22 08:00 Resp 16 06/11/22 08:00 BP 136/74 06/11/22 08:00 Pulse Ox 96 06/11/22 08:00 O2 Del Method 06/11/22 08:00 06/10/22 06/11/22 06/11/22 22:59 06:59 14:59 Intake Total 0 / 0 Balance 0 / 0 Weight last 48 hrs Weight 167 lb Physical Exam Narrative: GENERAL: Patient is alert, awake and oriented x3. [] NECK: No jugular vein distension. [] HEENT: No cyanosis. No icterus. No pallor. [] HEART: Regular S1 and S2. LUNGS: Clear to auscultate bilaterally. [] ABDOMEN: Soft, nontender and nondistended. Positive bowel sounds. No guarding, rebound or tenderness. [] CENTRAL NERVOUS SYSTEM: Grossly nonfocal. [] EXTREMITIES: Lower extremities with 1+ edema bilaterally. Pulses palpable in the lower extremities, both dorsalis pedis and posterior tibial. [] Data 06/11/22 02:50 06/11/22 02:50 A&P Assessment and plan (1) Non-ST elevation PR (NSTEMI): (2) Chronic diastolic CHF (congestive heart failure): (3) Bradycardia: (4) Carotid stenosis: Qualifiers: Laterality: left Qualified Code(s): I65.22 - Occlusion and stenosis of left carotid artery (5) Hypertension: Plan Patient has presented with non-ST elevation PR. However she is on Eliquis and took the last dose last night. Hold Eliquis. Switch to Lovenox. As she is chest pain-free at this time, we will hold off on coronary angiogram for today and tomorrow morning secondary to recent Eliquis use. Order echocardiogram Start nitro drip if patient starts having chest pain again. Continue aspirin. Thank you for involving us with care of this patient. We will continue to follow. Please call with questions Consult Attestations Medical Necessity Statement: Care expected to cross 2 midnights. 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
--- NOTE | 2022-06-11 08:50 | ECG_ITS ---
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 Measurements Intervals [place] Rate: 57 P: 48 DC: 212 QRS: -28 QRSD: 101 T: 30 QT: 406 QTc: 399 Interpretive Statements SINUS BRADYCARDIA WITH FIRST DEGREE AV BLOCK BORDERLINE LEFT AXIS DEVIATION [QRS AXIS < -20] NONSPECIFIC ST & T-WAVE ABNORMALITY Compared to ECG 06/11/2022 04:59:20 No significant changes Electronically Signed On 06-12-2022 6:33:13 [employer]PERVIS[employer]ING [employer]PERING by Darci Ruiz M.D. [id number]
[2022-06-11] MEDS: levothyroxine 25 mcg Tablet PO (09:13)
[2022-06-11] MEDS: pantoprazole DR 40 mg Tablet PO (09:13)
[2022-06-11] MEDS: oxybutynin chloride XL 5 MG TABLET PO (09:13)
[2022-06-11] MEDS: aspirin 81 mg EC Tablet PO (09:13)
[2022-06-11 10:19] LABS: Thyroid Stimulating Hormone 4.92 uIU/mL (0.27-4.20)
[2022-06-11 10:51] LABS: Vitamin B12 404 pg/mL (232-1245)
[2022-06-11 10:57] LABS: Iron 121 ug/dL (37-145); Percent Saturation 32.7 % (20-50); Total Iron Binding Capacity 369 mcg/dl; Unsaturated Iron Binding 248 ug/dL (112-347)
[2022-06-11 11:12] LABS: Folate Level 19.6 ng/mL (4.8-37.3)
[2022-06-11 12:01] LABS: T3 Free 2.7 PG/ML (2.0-4.4)
[2022-06-11 13:24] LABS: Add Urine Culture? No; Add Urine Microscopic? YES; Bacteria Urine TRACE /hpf; Bilirubin Urine Neg (Negative); Blood Urine Trace (Negative); Glucose Urine UA Norm (Normal); Ketones Urine Negative (Negative); Leukocyte Esterase Urine Negative (Negative); Nitrate Urine Negative (Negative); Protein Urine Neg (Negative); RBC Urine 0-4 /hpf (0-2); Urine Appearance Clear (CLEAR); Urine Color Yellow (Yellow); Urobilinogen Urine Norm (Negative); pH Urine 7 (5-7)
[2022-06-11] MEDS: acetaminophen 325 mg Tablet 650 MG PO (13:28)
--- NOTE | 2022-06-11 13:37 | PC.NURSE ---
pt c/o left sided chest pain rating pain 9/10.no sob.no diaphoresis.vss.2 mg mso4 given iv,1/2 inch nitropaste applied as ordered.after 5 min ,chest pain relieved.0/10 pain reported
--- NOTE | 2022-06-11 14:45 | PM.PN ---
Subjective Subjective: Admitted overnight. H&P and labs appreciated. Seen with family at bedside. States she is feeling better. Denies any further chest pain. States he felt as if she was having a heart attack last night. States feeling weak especially trying to ambulate days. We discussed that she did have heart attack overnight also discussed that she has been having bradycardia which along with angina mostly the reason for her weakness. Patient verbalized understanding. Vitals/I&O/Wt Last Vital Signs Temp 97.9 F 06/11/22 13:10 Pulse 58 L 06/11/22 13:10 Resp 18 06/11/22 13:27 BP 138/71 06/11/22 13:10 Pulse Ox 97 06/11/22 13:27 O2 Del Method 06/11/22 10:10 O2 Flow Rate 2 06/11/22 10:10 06/10/22 06/11/22 06/11/22 22:59 06:59 14:59 Intake Total 0 / 0 Balance 0 / 0 Weight last 48 hrs Weight 75.75 kg Physical Exam Narrative: General: No acute distress, AO x3 HEENT: PERRLA, pupils bilaterally equal and reactive, pallors not present Chest: Normal vesicular breath sounds, no added sounds, equal good air entry bilaterally CVS: S1-S2 regular, no murmurs, no tachycardia, no gallops, no rubs Abdomen: Soft, nontender, no organomegaly, bowel sounds present Neuro: No focal deficits, no facial deformity, AO x3, power 5/5 in all limbs Data 06/11/22 02:50 06/11/22 02:50 A&P Assessment and plan (1) Non-ST elevation NJ (NSTEMI): Cardiology recommendations appreciated. Plan for cardiac angiogram in a.m. Last Eliquis yesterday morning. N.p.o. after midnight. Continue with full dose Lovenox. If patient have chest pain will start on nitro drip. Check A1c, lipid panel, echocardiogram. Continue with aspirin, home dose of fenofibrate. Patient is allergic to statin with muscle aches. (2) Chronic episodic atrial fibrillation: Chronic history. Takes propafenone and metoprolol at home. Continue home dose of propafenone. Eliquis is on hold given non-ST ovation NJ and need for angiogram. Continue with full dose of Lovenox. (3) Bradycardia: Holding off on metoprolol as above. Continue to monitor with telemetry. (4) Chronic diastolic CHF (congestive heart failure): Current echocardiogram awaited. Last echocardiogram July 2021 showed an EF of 66%, moderate LVH, mild MVR, trace TR and increased LA size. Compensated currently. Hold off IV fluid for diuresis for now. (5) Benign essential hypertension with target blood pressure below 140/90: Goal blood pressure less than 140/90 mmHg. Continue with home dose of propafenone. We will start on antihypertensives as per blood pressure goal. Plan Full code. Cardiac diet. N.p.o. from midnight. Protonix for PUD prophylaxis Full dose Lovenox. Attestations Medical Necessity Statement*: Requires further hospitalization for management of non-ST elevation NJ Time Spent in Patient Care: Greater than 35 minutes Coding Level of Care Code Acute Convenience Store Clerk for [facility] Fwd Diagnoses Non-ST elevation NJ (NSTEMI) I21.4 Chronic episodic atrial fibrillation I48.20 Bradycardia R00.1 Chronic diastolic CHF (congestive heart failure) I50.32 Benign essential hypertension with target blood pressure below 140/90 I10
[2022-06-11] MEDS: propafenone 150 mg Tablet PO (20:19)
[2022-06-12] VITALS (71 sets, daily range): BP systolic 61–159; BP diastolic 45–100; PULSE 74–143; RESP 13–33; TEMP 36.9–37.9; O2SAT 81–99
--- NOTE | 2022-06-12 00:08 | PC.NURSE ---
Patient complaining of increased chest pain after she got OOB by herself to the commode. The patient had received IV morphine and nitro paste 45minutes prior for chest pain. The patient chest pain started to get worse after getting OOB. had told Umu CARMONA on the previous shift that if the patient had started to have increased chest pain that a nitro drip could be started. An order was entered for the nitro drip and for a STAT EKG. The patient at rest said her chest pain started to alleviate though and nitro drip was not started at this time, EKG was cancelled. Explain to patient that if her chest pain gets worse with activity do not get up by herself to the bathroom, ring for assistance. Encouraged patient to ring for assistance as
--- NOTE | 2022-06-12 00:14 | PC.NURSE ---
Patient started complaining of increased chest pain after getting herself OOB to commode. The patient had been medicated 45min prior to with IV morphine and topical nitro. The patient rated her pain 9/10 in her left chest. Vital signs were stable. had told Umu CARMONA on the previous shift that if the patient had an increase in chest pain that a nitro drip could be started. An order for the nitro drip was entered and a STAT EKG was ordered. When back in bed and at rest the patients chest pain started to alleviate so the nitro drip was not started and the EKG was cancelled. Educated patient that activity can cause her chest pain to increase because her heart is working harder. Encouraged patient to not get OOB by herself and to ring for assistance to prevent chest pain.
[2022-06-12] MEDS: morphine 4 mg/mL SDV 1 mL 2 MG IVP ×3 (01:18→15:59)
[2022-06-12] MEDS: nitroglycerin 1 gm/inch oint Pkt 0.5 INCH TOPICAL (01:26)
[2022-06-12] MEDS: sodium chloride 0.9% 1,000 ML 50 ML IV (04:02)
[2022-06-12] MEDS: diphenhydrAMINE 25 mg Capsule 50 MG PO (04:02)
--- NOTE | 2022-06-12 05:00 | XACV_ITS ---
Exam Room: [facility] Ht: 160 cm Wt: 76 kg BSA: 1.86 m2 Gender: Female : 1945 Any Known Allergies: Other Exam Priority: Routine Procedure(s): Procedure Description: Diagnostic procedure Procedure Description: PCI procedure Procedure Description: Drug Eluting Coronary Stent Procedure Description: PTCA Procedure Description: Miscellaneous Procedure Description: Angio-Seal Procedure Description: ACT Procedure Description: Coronary Angiography Diagnostic Cath Status: Urgent Diagnostic Findings * Mid Left Anterior Descending: subtotal occlusion, LOUISE: 1 flow. * Distal/Apical Left Anterior Descending: severe 90% stenosis, LOUISE: 1flow. * Left Main has no disease. * Circumflex has no disease. * Mid Right Coronary Artery: minimal 30% stenosis, LOUISE: 3 flow. * 1st Diagonal: mild 40% stenosis, LOUISE: 3 flow. * Coronary angiography shows right dominance. PCI Status: Urgent PCI Indication: NSTE - ACS Interventional Findings * Procedure detail: Previous left main artery with XB 3.5 guide catheter. IV heparin was administered to maintain ACT above 250 S. We used run-through guidewire to cross subtotal occlusion of mid LAD and was put in the apical LAD. 2.5 x 12 mm semicompliant balloon was used to predilate the stenosis. This was followed by placement of 3.0 x 18 mm resolute Fenwick drug-eluting stent. At the distal edge of the stent, there was some haziness concerning for possible dissection. We put a second overlapping stent measuring 2.75 x 12 mm. At this time final angiogram was performed that showed excellent stent expansion and no residual stenosis. Guidewire and guide catheter were removed. Patient left the trestle mainternance laborer in a stable condition.. * Mid Left Anterior Descendin% stenosis treated with a AB TREK 2.50X12 RX BALLOON, MDT R CHRIS 3.0X18 RICHY, and MDT R CHRIS 2.75X12 RICHY. 0% residual stenosis, LOUISE: 3 flow. Conclusions 1. Critical mid LAD stenosis s/p successful revascularization with RICHY x2.. 2. Mid Left Anterior Descending was treated with a Balloon, Drug Eluting Stent, and Drug Eluting Stent. Recommendations * Continue dual antiplatelet therapy. * High intensity statin therapy. * Outpatient cardiology follow up in 4 weeks. Interventional RX Recommendation: PCI w/o planned CABG Diagnostic RX Recommendation: PCI w/o planned CABG Anticoagulation: Heparin Pressures Phase:Rest AO : 102 / 63 ( 83 ) @ 5:30:00 AM 118 / 70 ( 94 ) @ 5:43:00 AM 97 / 72 ( 85 ) @ 5:46:00 AM 149 / 69 ( 100 ) @ 5:48:00 AM Clinical Evaluation EBL: 5mL-10mL Procedural Details Procedure Consent Obtained. Pre-Procedure Time Out. Identified patient by full name and date of as verbalized by the patient/guarantor. Does the consent match the physician's order: Yes. Accurate & Complete Informed Consent: Yes. Inpatient/Outpatient History & Physical on Chart: Yes. If H&P is completed, is and addenduem needed: No. Visualize and Verify Site with Patient/Guarantor: N/A. Relevant Radiology Images available: Yes. The risks, benefits, and alternatives of sedation and/or procedure were discussed by physician. The patient agrees to continue. Procedure started. [facility] Clinical Fraility Score: 3: Managing Well. Floor Space Allocator Indications: ACS > 24 hours. Chest Pain Symptom Assessment: Typical Angina Symptoms. Cardiovascular Instability: No. Correct patient, site and procedure confirmed by cath team. PERRLA. Strong, equal hand hydrogenation still operator bilaterally. Lungs clear x 5 lobes. IV Site on Arrival: 20 gauge in the left anticubital. IV Fluids: 0.9% NaCl at KVO. 0 mL infused prior to trestle mainternance laborer. Pre Procedural Pulses: bilateral dorsalis pedis was 3+. Pre Procedural Pulses: right radial was 3+. Oxygen started at 2liters/min via nasal canula. right groin was prepped with chloroprep then draped in the usual sterile fashion. right radial was prepped with chloroprep then draped in the usual sterile fashion. Physician notified. Baseline sample Acquired. HR: 79 BPM. Patient's family unavailable. Equipment: 6F - Radial. Cardiac Cath Pack. ACoLyfe Manifold Kit Model BT 2000. Heparinized Saline (2 units/mL), 1000 mL bag. Physician arrived. Physician scrubbed in. Immediate Pre-Procedure Time Out. Correct Patient: Yes; Correct Procedure: Yes; Correct Site: Yes; Correct Patient Position: Yes; Correct Supplies: Yes; Dried Flammable Prep: Yes; Blood Products Available: N/A;. Lidocaine 1% infiltrated to the right radial. Arterial access obtained. Radial artery with severe spasm. Access needle out, manual pressure held by Dr. Ruiz. Will abort and move to femoral access. Lidocaine 1% infiltrated to the right groin. Arterial access obtained with micropuncture set. Unable to advance wire, access needle out, manual pressure being held by Dr. Ruiz. Arterial access obtained with micropuncture set. A 5 kittitian JL4 catheter in over the exchange J wire. Multiple views taken of left coronary artery. Catheter removed over the exchange J wire. A 5 kittitian JR4 catheter in over the exchange J wire. Multiple views taken of right coronary artery. Catheter removed over the exchange J wire. 6 kittitian XB 3.5 guide catheter was inserted over the exchange J wire. Runthrough guidewire was advanced through the guide catheter to lesion in the mid LAD. Inflation number : 1 A AB TREK 2.50X12 RX BALLOON was prepped and advanced across the Mid LAD , then inflated to 8 DAMION for 0:24 seconds. Results checked. Balloon out. Inflation Number : 2 A KENNETH Moyer CHRIS 3.0X18 RICHY -Lot Number# [id number] was prepped and advanced across the Mid LAD. The stent was deployed at 12 DAMION for 0:22 seconds. Exp. 2024-08-26. Stent balloon out over wire. Results checked. ACT drawn. Results 393 seconds. Therapeutic limits - pre-heparin administration 90-150 seconds and monitoring heparin during a vascular procedure >250 seconds. Inflation Number : 3 A KENNETH Moyer CHRIS 2.75X12 RICHY -Lot Number# [id number] was prepped and advanced across the Mid LAD. The stent was deployed at 12 DAMION for 0:21 seconds. Exp. 2024-11-27. Stent balloon out over wire. Results checked. Wire out. ACT drawn. Results 308 seconds. Therapeutic limits - pre-heparin administration 90-150 seconds and monitoring heparin during a vascular procedure >250 seconds. A Right femoral angiogram was performed to determine safe placement of closure device. Lidocaine 1% infiltrated to the right groin. A Angio-Seal VIP ([employer]) was successful obtaining hemostatsis at the Right Femoral artery insertion site. Lot #[id number]. Exp 2022-10-23. Angioseal placed without complications. No signs or symptoms of hematoma noted. Sterile dressing applied per usual sterile fashion. Dr. Ruiz scrubbed out. Post Procedure: Pulses reassessed and unchanged. PERRLA. Strong, equal hand hydrogenation still operator bilaterally. No VTE prophylaxis required. Medication's Wasted: Nitro = 49.7 mg. Medication's Wasted: Heparin = 2000 units. Total IV fluids: 79 mL. PCI Indication: CAD (without ischemic symptoms). Post-op diagnosis: PCI of the mid LAD. Complications: none. Estimated blood loss: 5mL-10mL. Responsiveness - Normal response to verbal stimuli; alert and oriented, PERRLA. Airway - Unaffected, no intervention required; spontaneous ventilation. Circulation: W/N/L, pulses unchanged. Nausea/Vomiting: No. Procedure completed. Patient transferred by bed to 1st floor. Vital chart was stopped. Access Site Site: Right Femoral artery Sheath Size: 6 Fr Hemostasis Method: Angio-Seal VIP ([employer]) Hemostasis Success: Successful Procedure Medications Start: 5:12 AM Stop: 5:12 AM Medication: Versed Amount: 1 mg Route: I.V. Start: 5:12 AM Stop: 5:12 AM Medication: Fentanyl Amount: 50 mcg Route: I.V. Start: 5:19 AM Stop: 5:19 AM Medication: Nitrogylcerin Amount: 100 mcg Route: I.A. Start: 5:34 AM Stop: 5:34 AM Medication: Heparin Amount: 7000 units Route: I.V. Start: 5:42 AM Stop: 5:42 AM Medication: Heparin Amount: 1000 units Route: I.V. Start: 5:42 AM Stop: 5:42 AM Medication: Versed Amount: 1 mg Route: I.V. Start: 5:47 AM Stop: 5:47 AM Medication: Nitrogylcerin Amount: 200 mcg Route: I.C. Start: 5:56 AM Stop: 5:56 AM Medication: Fentanyl Amount: 25 mcg Route: I.V. Start: 5:58 AM Stop: 5:58 AM Medication: Heparin Amount: 1000 units Route: I.V. Start: 6:06 AM Stop: 6:06 AM Medication: Plavix Amount: 600 mg Route: P.O. Start: 6:06 AM Stop: 6:06 AM Medication: Aspirin Amount: 81 mg Route: P.O. I, the attending physician, have reviewed and verified all procedure medications. Yes, all medications given per verbal order History/Risk Factors Hypertension: Yes Dyslipidemia: No Peripheral Arterial Disease (PAD): No Myocardial Infarction ([place]): No Obesity: Yes Renal Disease: No Tobacco Use: Former Prior Interventions PCI: No CABG: No Valve Surgery: No Report Signatures Finalized by Darci Ruiz MD on 06/25/2022 03:06 PM
--- NOTE | 2022-06-12 05:00 | PC.NURSE ---
Patient transferred to medical laboratory assistant via wheelchair for cardiac catheterization.
--- NOTE | 2022-06-12 05:10 | W.PM.OPSUD ---
Surgery/Procedure H&P Update DATE OF PROCEDURE: June 12, 2022 DATE H&P PERFORMED: 06/11/22 H&P UPDATE INFORMATION: I have reviewed H&P completed within last 30 days, I have examined patient prior to procedure and No changes to prior documentation PREOP DIAGNOSIS: NSTEMI PRIMARY INDICATION FOR PROCEDURE: NSTEMI PLANNED PROCEDURE: Operation Date: 06/12/22 05:00 Proposed Procedures p Cardiac Catheterization(Left) - Darci Ruiz M.D Possible percutaneous coronary intervention PATIENT REASSESSED PRIOR TO SEDATION, WITH NO CHANGE NOTED: Yes PHYSICAL EXAM: alert, oriented x 3, clear to auscultation bilaterally and regular rate & rhythm AIRWAY EVAL/ANESTHESIA PLAN: ASA III, Local Anesthesia, Risks, benefits & alternatives of sedation and/or procedure discussed and Patient agrees to continue as planned ADDITIONAL INFORMATION: Moderate sedation
[2022-06-12 05:59] LABS: Basophils % 0.3 %; Eosinophils % 0.1 %; Hematocrit 39.6 % (37.0-47.0); Hemoglobin 12.6 g/dL (11.5-15.3); Lymphocytes # 1.7 10^3/uL (0.8-4.8); Lymphocytes % 16.5 %; Mean Corpuscular HGB Conc 31.8 g/dL (30.0-36.0); Mean Corpuscular Hemoglobin 31.5 pg (28.0-34.0); Mean Platelet Volume 9.7 fL (7.4-10.4); Monocytes % 9.9 %; Neutrophils # 7.61 10^3/uL (1.8-7.7); Neutrophils % 72.7 %; Nucleated Red Blood Cells % 0 %; Platelet Count 221 10^3/cmm (130-400); Red Cell Distribution Width 12.5 % (12.1-15.1); White Blood Count 10.5 10^3/uL (4.0-10.0)
[2022-06-12 06:13] LABS: Alanine Aminotransferase 28 U/L (0-33); Albumin Level 3.8 g/dL (3.5-5.2); Alkaline Phosphatase 47 U/L (35-105); Anion Gap 15.6 (5-19); Aspartate Amino Transferase 147 U/L (0-32); Blood Urea Nitrogen 15 mg/dL (8-23); Calcium 8.7 mg/dL (8.5-10.5); Carbon Dioxide 25 mmol/L (22-29); Chloride 98 mmol/L (98-107); Chol HDL Ratio 3.55 mg/dL (0.0-4.40); Cholesterol 167 mg/dL (0-200); Globulin 2.8 g/dL (1.3-4.6); Glucose 139 mg/dL (65-115); HDL Cholesterol 47 mg/dL (60-100); LDL Cholesterol Calculated 96 mg/dL (50-129); Magnesium 2.1 mg/dL (1.7-2.3); Osmolality Calculated 283 mOsm/kg (285-295); Potassium 3.6 mmol/L (3.5-5.1); Sodium 135 mmol/L (136-145); Total Bilirubin 0.7 mg/dL (0.15-1.2); Total Protein 6.6 g/dL (6.6-8.7); Triglycerides 120 mg/dL (0-150); VLDL Cholestrol Calculation 24 mg/dL (0-30)
--- NOTE | 2022-06-12 06:15 | PC.NURSE ---
Patient returned from hatchery laborer in bed and settled in room 111-2. Right groin site was assessed. Dressing is intact and stained with small amount of blood, site is soft, and distal pulses are palpable. No hematoma present.
--- NOTE | 2022-06-12 06:17 | P.PN_ITS ---
Subjective Subjective: Patient underwent coronary angiogram today which showed subtotal, critical 99% thrombotic stenosis of both mid LAD. She underwent successful revascularization with RICHY x2. Vitals/I&O/Wt Last Vital Signs Temp 100.3 F H 06/12/22 04:00 Pulse 74 06/12/22 04:00 Resp 18 06/12/22 04:00 BP 111/56 06/12/22 04:00 Pulse Ox 94 06/12/22 04:00 O2 Del Method 06/11/22 16:00 O2 Flow Rate 2 06/11/22 16:00 06/11/22 06/11/22 06/12/22 14:59 22:59 06:59 Intake Total 200 / 200 120 / 320 Output Total 100 / 100 125 / 225 Balance 200 / 200 20 / 220 -125 / 95 Weight last 48 hrs Weight 167 lb Physical Exam Narrative: GENERAL: Patient is alert, awake and oriented x3. [] NECK: No jugular vein distension. [] HEENT: No cyanosis. No icterus. No pallor. [] HEART: Regular S1 and S2. LUNGS: Clear to auscultate bilaterally. [] ABDOMEN: Soft, nontender and nondistended. Positive bowel sounds. No guarding, rebound or tenderness. [] CENTRAL NERVOUS SYSTEM: Grossly nonfocal. [] EXTREMITIES: Lower extremities with 1+ edema bilaterally. Pulses palpable in the lower extremities, both dorsalis pedis and posterior tibial. [] Data 06/12/22 04:35 06/12/22 04:35 A&P Assessment and plan (1) Non-ST elevation CT (NSTEMI): (2) Chronic diastolic CHF (congestive heart failure): (3) Bradycardia: (4) Carotid stenosis: Qualifiers: Laterality: left Qualified Code(s): I65.22 - Occlusion and stenosis of left carotid artery (5) Hypertension: Plan Patient has presented with non-ST elevation CT. Coronary angiogram revealed critical, subtotal occlusion of mid LAD. She underwent successful revasculariz ation with RICHY x2. Aspirin and Plavix loaded. We will continue with Plavix and Eliquis as outpatient Echocardiogram shows a reduction of LV systolic function with current EF of 39%. Severe LV hypokinesis in distribution of LAD territory. Thank you for involving us with care of this patient. We will continue to follow. Please call with questions Attestations Medical Necessity Statement*: Care expected to cross 2 midnights. Coding Level of Care Code Acute Instrumentation Technologist for Chg Fwd Diagnoses Non-ST elevation CT (NSTEMI) I21.4 Chronic diastolic CHF (congestive heart failure) I50.32 Bradycardia R00.1 Carotid stenosis I65.22 Laterality: left Hypertension I10
[2022-06-12 06:27] LABS: Estmated Average Glucose 100; Hemoglobin A1C 5.1 % (4.0-6.0)
--- NOTE | 2022-06-12 09:13 | XR_ITS ---
WS: [id number] Exam: XR chest 1V portable [id number] Date/Time of Exam: 06/12/2022 9:20 AM Reason For Exam: f/u Comparison 06/11/2022. The lungs are fully expanded and clear. Chronic changes in the right basal region. The heart is enlar ged but unchanged in size. The mediastinum is normal in contour. No pneumothorax. Monitoring leads bailey perimpose the chest. Bony structures are intact. XR/XR chest 1V portable [id number] IMPRESSION: 1. Mild cardiac enlargement. No acute process noted. 2. Chronic right basal changes.
--- NOTE | 2022-06-12 09:14 | ECG_ITS ---
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 Measurements Intervals [place] Rate: 85 P: 159 TN: 179 QRS: -26 QRSD: 90 T: 149 QT: 365 QTc: 436 Interpretive Statements SINUS RHYTHM BORDERLINE LEFT AXIS DEVIATION [QRS AXIS < -20] MARKED ST ELEVATION, CONSIDER ANTERIOR INJURY [MARKED ST ELEVATION W/O NORMALLY INFLECTED T-WAVE IN V2-V5] ACUTE [place] Compared to ECG 06/11/2022 07:03:28 ST (T wave) deviation now present Myocardial infarct finding now present Sinus bradycardia no longer present First degree AV block no longer present T-wave abnormality no longer present Electronically Signed On 06-15-2022 18:27:13 REHABILITATION AIDE/SCHEDULER by Darci Ruiz M.D. [id number]
[2022-06-12] MEDS: morphine 4 mg/mL SDV 1 mL 1 MG IVP (09:19)
--- NOTE | 2022-06-12 09:54 | XACV_ITS ---
Exam Room: 2 Ht: 160 cm Wt: 76 kg BSA: 1.86 m2 Gender: Female : 1945 Any Known Allergies: Other Exam Priority: Routine Procedure(s): Procedure Description: Diagnostic procedure Procedure Description: Coronary Angiography Diagnostic Cath Status: Emergency Diagnostic Findings * Left main artery: Patent LAD: Patent recently placed mid LAD stents. Apical LAD is diffusely diseased and is occluded likely secondary to distal embolization of thrombus Left circumflex artery: Patent RCA:Not Injected. * INDICATION: Patient underwent coronary angiogram earlier today that demonstrated subtotal occlusion of diffusely diseased mid LAD. She underwent successful revascularization of mid LAD with RICHY X 2. About 3-4 hours post procedure, I was called that patient is complaining of chest pain with transient ST elevation on in the anterior and anterolateral leads. We took patient back to manager cardiac cath. * Coronary angiography shows right dominance. Conclusions 1. Left main artery: Patent LAD: Patent recently placed mid LAD stents. Apical LAD is diffusely diseased and is occluded likely secondary to distal embolization of thrombus Left circumflex artery: Patent RCA:Not Injected. 2. Recent stents are patent. Distal embolization of thrombus to apical LAD. Recommendations * We will start aggrastat for 12 hours. * Continue dual antiplatelet therapy. * Nitro gtt. Interventional RX Recommendation: medical therapy and/or counseling Diagnostic RX Recommendation: medical therapy and/or counseling Pressures Phase:Rest AO : 105 / 75 ( 90 ) @ 10:22:00 AM Clinical Evaluation EBL: 5mL-10mL Procedural Details Procedure Consent Obtained. Pre-Procedure Time Out. Identified patient by full name and date of as verbalized by the patient/guarantor. Does the consent match the physician's order: Yes. Accurate & Complete Informed Consent: Yes. Inpatient/Outpatient History & Physical on Chart: Yes. If H&P is completed, is and addenduem needed: No. Visualize and Verify Site with Patient/Guarantor: N/A. Relevant Radiology Images available: Yes. The risks, benefits, and alternatives of sedation and/or procedure were discussed by physician. The patient agrees to continue. Procedure started. [facility] Clinical Fraility Score: 3: Managing Well. Head Trimmer Indications: Cardiac Arrhythmia. Chest Pain Symptom Assessment: Typical Angina Symptoms. Cardiovascular Instability: No. A golf ball size hematoma was noted at the previous right femoral access site. Manual Pressure being held by Fela Negro RN. Correct patient, site and procedure confirmed by cath team. PERRLA. Strong, equal hand sewing machine bobbin winder bilaterally. Lungs clear x 5 lobes. IV Site on Arrival: 20 gauge in the right anticubital. IV Fluids: 0.9% NaCl at KVO. 200 mL infused prior to manager cardiac cath. Pre Procedural Pulses: bilateral dorsalis pedis was 3+. Pre Procedural Pulses: bilateral posterior tibial was 2+. Pre Procedural Pulses: bilateral radial was 3+. Oxygen started at 2liters/min via nasal canula. left groin was prepped with chloroprep then draped in the usual sterile fashion. Physician notified. Equipment: 6F - Femoral. Cardiac Cath Pack. [employer] Manifold Kit Model BT 2000. Heparinized Saline (2 units/mL), 1000 mL bag. Kit, Micropuncture. Physician arrived. Patient's family in the Head Trimmer waiting room. Dr. Ruiz will update at the completion of the procedure. Baseline sample Acquired. HR: 59 BPM. Physician scrubbed in. Immediate Pre-Procedure Time Out. Correct Patient: Yes; Correct Procedure: Yes; Correct Site: Yes; Correct Patient Position: Yes; Correct Supplies: Yes; Dried Flammable Prep: Yes; Blood Products Available: N/A;. Lidocaine 1% infiltrated to the left groin. Arterial access obtained with micropuncture set. 6 uzbek XB 3.5 guide catheter was inserted over the standard J wire. AP Pads placed on the patient. Multiple views taken of left coronary artery. Guide catheter out over the standard J wire. Dr. Ruiz scrubbed out. Manual pressure to the right groin for 5 minutes then fem stop to be placed at light pressure. A Suture was successful obtaining hemostatsis at the Left Femoral artery insertion site. Sheath(s) sutured into position with 2-0 silk and sterile 4x4's and Op-site applied over the site. No oozing or signs and symptoms of hematoma noted. Arterial sheath flushed and connected to tranducer and pressure bag with heparinized saline. Post Procedure: Pulses reassessed and unchanged. PERRLA. Strong, equal hand sewing machine bobbin winder bilaterally. No VTE prophylaxis required. Post-op diagnosis: Patent LAD stents. Complications: none. Estimated blood loss: 5mL-10mL. Responsiveness - Normal response to verbal stimuli; alert and oriented, PERRLA. Airway - Unaffected, no intervention required; spontaneous ventilation. Circulation: W/N/L, pulses unchanged. Nausea/Vomiting: No. Total IV fluids: 23 mL. A 20 gauge IV was started in the right anticubital using aseptic technique by Fela Negro RN. Right groin now soft with no hematoma and palpable DP and PT pulses. Medication's Wasted: Lidocaine 1% = 1 mL. Medication's Wasted: Heparin = 4000 units. Medication's Wasted: Other = Fentanyl 75 mcg. Medication's Wasted: Other = Versed 1 mg. Procedure completed. Patient transferred by bed to 1st floor. Vital chart was stopped. Access Site Site: Left Femoral artery Sheath Size: 6 Fr Hemostasis Method: Suture Hemostasis Success: Successful Procedure Medications Start: 10:11 AM Stop: 10:11 AM Medication: Versed Amount: 1 mg Route: I.V. Start: 10:12 AM Stop: 10:12 AM Medication: Fentanyl Amount: 25 mcg Route: I.V. Start: 10:22 AM Stop: 10:22 AM Medication: Aggrastat 12.5 mg/250 mL Amount: 38 ml Route: I.V. bolus Start: 10:22 AM Stop: 10:22 AM Medication: Aggrastat 12.5 mg/250 mL Amount: 13.7 ml/hr Route: I.V. drip Start: 10:23 AM Stop: 10:23 AM Medication: Nitrogylcerin Amount: 2.5 mcg/min Route: I.V. drip I, the attending physician, have reviewed and verified all procedure medications. Yes, all medications given per verbal order History/Risk Factors Hypertension: Yes Dyslipidemia: No Peripheral Arterial Disease (PAD): No Myocardial Infarction ([place]): No Obesity: Yes Renal Disease: No Tobacco Use: Former Prior Interventions PCI: No CABG: No Valve Surgery: No Report Signatures Finalized by Darci Ruiz MD on 06/25/2022 05:21 PM
--- NOTE | 2022-06-12 10:02 | PC.NURSE ---
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
--- NOTE | 2022-06-12 11:02 | PC.CHAP ---
Pastoral Care Encounter/Spiritual Assessment Type of Contact [] Declined structural worker visit [] Patient/Family/Request visit [] Outpatient visit [] Follow-up visit [] Physician referral [] Code/Alert [x] Routine visit [] Staff referral [] Actively dying [] Patient sleeping [] Family support [] [x] Out of room [] Palliative care [] [] Receiving care in room [] Pre-surgical visit [] Trauma [] Long length of stay [] ICU visit [] Other: Relational/Emotional Strength [] Patient feels connected with others/family/visitors/staff [] Distress [] Loneliness/isolation [] Abandonment Spirituality of Patient [] Person of Ann [] Attends Faith of their Ann [] Believes in Prayer [] Reads Bible or Lutheran materials [] There are Spiritual issues to be addressed Water Quality Specialist Interventions [x] Prayer [] Active listening [] Non-anxious presence [] Spiritual/emotional support [] Crisis/trauma care [] Spiritual counseling [] Bereavement support [] Provided bereavement packet [] Provided Bible/devotional materials [] Provided toy/stuffed animal, coloring book to patient or family member [] Provided Communion [] Anointing/[place] [] Salvation [] Completed spiritual assessment [] Other: Impact on Illness or Injury [] Angry [] Fearful [] Anxious [] Often cries [] Exhaustion [] Unable to work [] Unable to attend latter day [] Unable to walk/stand [] Unable to read [] Unable to drive [] Unable to eat/drink [] Unable to sleep [] Unable to be with family [] Patient intubated [] Other: Summary Time spent with patient
[2022-06-12] MEDS: clopidogrel 75 mg Tablet PO (11:50)
[2022-06-12] MEDS: nitroglycerin drip 50 MG/250 ML PREMIX IV (11:51)
[2022-06-12] MEDS: ALPRAZolam 0.5 mg Tablet 0.25 MG PO (13:16)
[2022-06-12] MEDS: propafenone 150 mg Tablet 300 MG PO (13:59)
[2022-06-12] MEDS: metoprolol tartrate 1 mg/1 mL SDV 5 mL 5 MG IVP (15:33)
--- NOTE | 2022-06-12 15:49 | PM.PN ---
Subjective Subjective: No acute events overnight. Patient seen multiple standing the day. Today morning seen post cardiac angiogram. Post cardiac angiogram and PCI patient was complaining of back pain and chest heaviness. Repeat EKG was done which showed anterior lateral ST elevations after which patient was taken to the Aircraft Engine Mechanic Supervisor again which showed patent stent with possible distal thrombotic occlusion(complete Aircraft Engine Mechanic Supervisor report not available currently). Post that patient was transferred back to the floor on Argatostat and nitro drip. Since then patient is a lot more comfortable but heart rate has been trending up and running in 120s to 130s. Patient complaining of mild nausea. Vitals/I&O/Wt Last Vital Signs Temp 98.8 F 06/12/22 15:27 Pulse 133 H 06/12/22 15:27 Resp 17 06/12/22 15:27 BP 99/63 06/12/22 15:27 Pulse Ox 95 06/12/22 15:27 O2 Del Method 06/12/22 15:27 O2 Flow Rate 2 06/12/22 11:30 06/12/22 06/12/22 06/12/22 06:59 14:59 22:59 Intake Total 3.85 / 3.85 Output Total 125 / 225 Balance -125 / 95 3.85 / 3.85 Weight last 48 hrs Weight 75.75 kg Physical Exam Narrative: General: No acute distress, AO x3 HEENT: PERRLA, pupils bilaterally equal and reactive, pallors not present Chest: Normal vesicular breath sounds, no added sounds, equal good air entry bilaterally CVS: S1-S2 regular, no murmurs, no tachycardia, no gallops, no rubs Abdomen: Soft, nontender, no organomegaly, bowel sounds present Neuro: No focal deficits, no facial deformity, AO x3, power 5/5 in all limbs Urinary Catheter Management: Archer: Cath Placed During This Visit: yes Urinary Catheter Date of Insertion: 06/12/22 Urinary Catheter Time of Insertion: 09:00 Data 06/12/22 04:35 06/12/22 04:35 A&P Assessment and plan (1) Non-ST elevation NE (NSTEMI): Appreciate cardiology recommendations. Patient is post PCI with RICHY x2 to LAD. Repeat cardiac angiogram showed patent stent with distalization of thrombus. Continue with aspirin, Plavix. Patient allergic to statin. Appreciate A1c, lipid panel results. Echocardiogram results appreciated. EF found to be of 39% with diastolic dysfunction, severe diffuse hypokinesia of LV along with apical ballooning, increased LA size. Currently on nitro drip. We will gradually wean off (2) Chronic episodic atrial fibrillation: Chronic history. Takes propafenone and metoprolol at home. Continue with home dose of propafenone. Metoprolol withheld yesterday because of bradycardia. Today patient is in rapid ventricular response again. We will restart home dose of metoprolol 50 mg twice daily. Will restart Eliquis 5 mg every 12 hourly from tomorrow morning. (3) Bradycardia: Resolved. Patient in RVR now. Restarted metoprolol as above. (4) Benign essential hypertension with target blood pressure below 140/90: Goal blood pressure less than 140/90 mmHg. Continue with home dose of propafenone. We will start on antihypertensives as per blood pressure goal. (5) Congestive heart failure: Now systolic and diastolic combined. As above. Patient compensated so far. Continue with gentle IV hydration with normal saline 50 cc/h for 1 bag. Qualifiers: Heart failure type: combined systolic and diastolic Heart failure chronicity: acute on chronic Qualified Code(s): I50.43 - Acute on chronic combined systolic (congestive) and diastolic (congestive) heart failure Plan Full code. Cardiac diet. N.p.o. from midnight. Protonix for PUD prophylaxis Full dose Lovenox. Attestations Medical Necessity Statement*: Requires further hospitalization for management of non-ST elevation NE, post PCI, chronic A. fib with RVR, congestive heart failure Time Spent in Patient Care: Greater than 35 minutes Coding Level of Care Code Acute Roving Department End Finder for [facility] Diagnoses Non-ST elevation NE (NSTEMI) I21.4 Chronic episodic atrial fibrillation I48.20 Bradycardia R00.1 Benign essential hypertension with target blood pressure below 140/90 I10 Congestive heart failure I50.43 Heart failure type: combined systolic and diastolic Heart failure chronicity: acute on chronic
[2022-06-12 17:06] LABS: Add Urine Microscopic? YES; Bilirubin Urine Neg (Negative); Blood Urine 3+ (Negative); Glucose Urine UA Trace (Normal); Ketones Urine Negative (Negative); Leukocyte Esterase Urine Trace (Negative); Nitrate Urine Negative (Negative); Protein Urine 1+ (Negative); Urine Appearance Clear (CLEAR); Urine Color Yellow (Yellow); Urobilinogen Urine Neg (Negative); pH Urine 5 (5-7)
[2022-06-12] MEDS: metoprolol tartrate 25 mg Tablet 50 MG PO (17:21)
[2022-06-12 17:26] LABS: Add Urine Culture? No; RBC Urine 15-25 /hpf (0-2); Squamous Epithelial Cell Urine 0-4 /hpf (0-5)
--- NOTE | 2022-06-12 19:39 | PC.NURSE ---
Left Sheath out at 1815, no hematoma formation. Patient tolerated well. No blood loss. Patient did get up suddenly from bed to bedside commode at approximately 1840, unassisted, to urinate. Patient has been mild confusion throughout shift. Patient assisted back to bed and again educated on strict bedrest. Patient has galloway catheter in place. Patient and family educated on bedrest.
--- NOTE | 2022-06-12 19:43 | PC.NURSE ---
Transfer Report called to MATHEW Paez. Patient transferred to ICU 10 for closer monitoring due to vitals, confusion, and getting out of bed while on bedrest. Belongings taken with patient. Family accompanied the patient in transfer and was taken to ICU waiting room. No further questions.
--- NOTE | 2022-06-12 19:51 | PC.NURSE ---
Transferred from CSU to ICU room 10 via bed. Transferred to ICU bed. Tolerated well, no reports of chest pain or discomfort. Reports a little pain to left lower chest when taking a deep breath. Right groin dressing in place with small spot of blood, no hematoma or swelling noted. Left groin dressing in place with no bleeding or hematoma noted. Blood pressure remains soft with current pressure 75/49, heart rate 80's with A-fib with ST elevation, O2 sat 96% on 2L NC. Dr Easton at bedside, updated on current vitals and pain when taking deep breath. Bilat cath sites checked, bedside ultrasound done per Dr. Easton.
--- NOTE | 2022-06-12 20:03 | USCV_ITS ---
Ilana Lau Age: 76 Gender: F : 1945 Exam Date: 06/12/2022 20:29 Ordering Phys: Darci Ruiz M.D ([email or web address]) Technologist: CHRISTINE [place] [facility] [place]: low bp BP: / HR: Rhythm: Sinus Technical Quality: Adequate MEASUREMENTS (Male / Female) Normal Values FINDINGS Left Ventricle Right Ventricle Right Atrium Left Atrium Mitral Valve Aortic Valve Tricuspid Valve Pulmonic Valve Pericardium Aorta IVC CONCLUSIONS There is limited echocardiogram performed to rule out pericardial effusion and assess LV systolic function. LV systolic function is severely reduced with EF of 25 to 30%. Regional wall motion abnormalities cannot accurately be assessed because of poor ultrasonic windows however anterior and apical burrows appear to be akinetic. Cannot rule out LV thrombus No significant pericardial effusion is seen. Darci Ruiz MD (Electronically Signed) Final Date: 13 June 2022 11:51 S
--- NOTE | 2022-06-12 20:04 | XRR_ITS ---
PROCEDURE INFORMATION: Exam: XR Chest Exam date and time: 06/12/2022 8:08 PM Age: 76 years old Clinical indication: Shortness of breath; Additional info: Chest pain with inspiration TECHNIQUE: Imaging protocol: Radiologic exam of the chest. Views: 1 view. COMPARISON: CR XR chest 1V portable [id number] 06/12/2022 9:29 AM FINDINGS: Lungs: Right hilar to lower lobe atelectasis versus infiltrate. Pleural spaces: Small bilateral pleural effusions. Heart/Mediastinum: Cardiomegaly. Bones/joints: Unremarkable. XR/XR chest 1V portable [id number] IMPRESSION: 1. Small bilateral pleural effusions. 2. Cardiomegaly. 3. Right hilar to lower lobe atelectasis versus infiltrate.
--- NOTE | 2022-06-12 20:13 | PM.MISC ---
Miscellaneous Note Purpose of Documentation: Event note Note: Patient underwent coronary angiogram demonstrated subtotal occlusion of diffusely diseased mid LAD. She underwent successful revascularization of mid LAD with RICHY X 2. About 3-4 hours post procedure, I was called that patient is complaining of chest pain with transient ST elevation on in the anterior and anterolateral leads. We took patient back to carpenter labor supervisor. Coronary angiogram showed patent prior stents. She did have distal embolization of thrombus and occlusion of diffusely diseased apical LAD. We put her on aggrastat gtt and nitro gtt. Patient left the carpenter labor supervisor in a stable condition.
--- NOTE | 2022-06-12 20:21 | PC.NURSE ---
Levophed drip started at 2mcg/min, Dr. Perry stated to hold PM dose of rhythmol today. Labs and chest x-ray done.
[2022-06-12 20:47] LABS: Basophils % 0.2 %; Hemoglobin 12.1 g/dL (11.5-15.3); Lymphocytes # 2.1 10^3/uL (0.8-4.8); Lymphocytes % 14.6 %; Mean Corpuscular HGB Conc 31.8 g/dL (30.0-36.0); Mean Corpuscular Hemoglobin 31.3 pg (28.0-34.0); Mean Corpuscular Volume 98.2 fl (81-99); Monocytes # 1.1 10^3/uL (0.2-0.9); Monocytes % 8.1 %; Neutrophils # 10.73 10^3/uL (1.8-7.7); Neutrophils % 76.5 %; Nucleated Red Blood Cells % 0 %; Platelet Count 200 10^3/cmm (130-400); Red Blood Count 3.87 10^6/uL (4.1-5.3); Red Cell Distribution Width 12.5 % (12.1-15.1)
[2022-06-12 20:53] LABS: Lactate (Lactic Acid level) 2.7 mmol/L (0.5-2.2)
[2022-06-12 20:54] LABS: Anion Gap 13.7 (5-19); Blood Urea Nitrogen 16 mg/dL (8-23); Calcium 8.3 mg/dL (8.5-10.5); Carbon Dioxide 23 mmol/L (22-29); Chloride 98 mmol/L (98-107); Glucose 183 mg/dL (65-115); Osmolality Calculated 278 mOsm/kg (285-295); Potassium 3.7 mmol/L (3.5-5.1); Sodium 131 mmol/L (136-145)
--- NOTE | 2022-06-12 22:25 | PC.NURSE ---
Left anticubital IV infiltrated, removed piv. Levophed changed to right forearm PIV. Will monitor.
[2022-06-13] VITALS (60 sets, daily range): BP systolic 76–114; BP diastolic 48–81; PULSE 87–133; RESP 13–27; TEMP 36.7–36.8; O2SAT 85–98
[2022-06-13 04:02] LABS: Basophils % 0.2 %; Hematocrit 40.9 % (37.0-47.0); Hemoglobin 13.4 g/dL (11.5-15.3); Lymphocytes # 2.6 10^3/uL (0.8-4.8); Lymphocytes % 16.4 %; Mean Corpuscular HGB Conc 32.8 g/dL (30.0-36.0); Mean Corpuscular Hemoglobin 31.8 pg (28.0-34.0); Mean Corpuscular Volume 97.1 fl (81-99); Monocytes # 1.6 10^3/uL (0.2-0.9); Monocytes % 10.5 %; Neutrophils # 11.36 10^3/uL (1.8-7.7); Neutrophils % 72.3 %; Nucleated Red Blood Cells % 0 %; Platelet Count 234 10^3/cmm (130-400); Red Blood Count 4.21 10^6/uL (4.1-5.3); Red Cell Distribution Width 12.8 % (12.1-15.1); White Blood Count 15.7 10^3/uL (4.0-10.0)
[2022-06-13 04:32] LABS: Alanine Aminotransferase 33 U/L (0-33); Albumin Level 3.6 g/dL (3.5-5.2); Alkaline Phosphatase 50 U/L (35-105); Anion Gap 14.9 (5-19); Aspartate Amino Transferase 139 U/L (0-32); Blood Urea Nitrogen 19 mg/dL (8-23); Calcium 8.9 mg/dL (8.5-10.5); Carbon Dioxide 27 mmol/L (22-29); Chloride 96 mmol/L (98-107); Globulin 3.4 g/dL (1.3-4.6); Glucose 145 mg/dL (65-115); Osmolality Calculated 283 mOsm/kg (285-295); Potassium 3.9 mmol/L (3.5-5.1); Sodium 134 mmol/L (136-145); Total Bilirubin 0.9 mg/dL (0.15-1.2)
[2022-06-13] MEDS: pantoprazole DR 40 mg Tablet PO (09:00)
[2022-06-13] MEDS: levothyroxine 25 mcg Tablet PO (09:00)
[2022-06-13] MEDS: oxybutynin chloride XL 5 MG TABLET PO (09:01)
[2022-06-13] MEDS: aspirin 81 mg EC Tablet PO (09:01)
[2022-06-13] MEDS: clopidogrel 75 mg Tablet PO (09:01)
[2022-06-13] MEDS: acetaminophen 325 mg Tablet 650 MG PO (09:26)
--- NOTE | 2022-06-13 10:19 | PC.RESP ---
etco2 42
[2022-06-13] MEDS: cefTRIAXone 1,000 MG in sodium chloride 0.9% (plus) 50 ML 100 MG IV (11:53)
[2022-06-13] MEDS: morphine 4 mg/mL SDV 1 mL 2 MG IVP (11:53)
[2022-06-13] MEDS: enoxaparin 80 mg/0.8 mL Syringe SUBCUT ×2 (11:54→22:53)
--- NOTE | 2022-06-13 13:01 | PM.PN ---
Subjective Subjective: Yesterday evening patient was transferred to ICU because of borderline hemodynamics. Overnight patient required to be on minimal Levophed drip. Today morning patient's heart rate had remained elevated with mostly over 100 bpm. On examination patient is tired and sleepy. Family at bedside. On 2 L saturating more than 90%. Mean artery pressure 70 with a systolic of 90 on Levophed of 2. Urine output documented overnight of 950 cc in last 24 hours. Otherwise has remained afebrile. Patient denies any chest pain right now. Archer catheter in place. Pulses bilaterally equal and reactive. Vitals/I&O/Wt Last Vital Signs Temp 98.0 F 06/13/22 08:30 Pulse 89 06/13/22 12:30 Resp 17 06/13/22 12:30 BP 100/64 06/13/22 12:30 Pulse Ox 97 06/13/22 12:30 O2 Del Method 06/13/22 11:30 O2 Flow Rate 2 06/13/22 11:30 06/12/22 06/13/22 06/13/22 22:59 06:59 14:59 Intake Total 434.429 / 070.358 4112.925 / 1800.204 444.577 / 444.577 Output Total 750 / 750 200 / 950 Balance -315.571 / -019.832 8833.925 / 850.204 444.577 / 444.577 Weight last 48 hrs Weight 79.515 kg Physical Exam Narrative: General: No acute distress, AO x3, tired appearing HEENT: PERRLA, pupils bilaterally equal and reactive, pallors not present Chest: Normal vesicular breath sounds, bilateral basilar crackles, equal good air entry bilaterally CVS: S1-S2 irregularly irregular, soft pansystolic murmur at apex, no tachycardia, no gallops, no rubs Abdomen: Soft, nontender, no organomegaly, bowel sounds present Neuro: No focal deficits, no facial deformity, AO x3, power 5/5 in all limbs Urinary Catheter Management: Archer: Cath Placed During This Visit: yes Reason for Continuing Indwelling Catheter: Accurate Measurement of Urinary Output in Critically Ill Patients Urinary Catheter Date of Insertion: 06/12/22 Urinary Catheter Time of Insertion: 09:00 Data 06/13/22 03:05 06/13/22 03:05 Micro: Microbiology 06/12/22 09:20 Urine Culture - Preliminary Urine Catheterized A&P Assessment and plan (1) Cardiogenic shock: In setting of recent non-ST elevation SC post PCI. Keep mean artery pressure over 65. Continue with Levophed. Will wean off accordingly. Monitor urine output. (2) Non-ST elevation SC (NSTEMI): Appreciate cardiology recommendations. Patient is post PCI with RICHY x2 to LAD. Repeat cardiac angiogram showed patent stent with distalization of thrombus. Continue with aspirin, Plavix. Patient allergic to statin. Echocardiogram shows an EF of 25 to 30% with akinesia of anterior and apical wall. No active chest pain currently. (3) Chronic episodic atrial fibrillation: Chronic history. Takes propafenone and metoprolol at home. Currently both at hold secondary to cardiogenic shock. Start on amiodarone drip after bolus. For now we will switch to Lovenox 1 mg/kg body weight every 12 hourly. (4) Acute kidney injury: In setting of cardiogenic shock. Creatinine up to 1.2. Baseline creatinine 0.9-1.1. Strict input output charting. Medical reconciliation done for nephrotoxic drugs. (5) Congestive heart failure: Now systolic and diastolic combined. As above. Once meaner pressures are maintained over 65 we will plan for IV Lasix 40 mg once. Keep strict input output charting. Daily weights. Continue with Archer catheterization. Qualifiers: Heart failure type: combined systolic and diastolic Heart failure chronicity: acute on chronic Qualified Code(s): I50.43 - Acute on chronic combined systolic (congestive) and diastolic (congestive) heart failure (6) Benign essential hypertension with target blood pressure below 140/90: Goal blood pressure less than 140/90 mmHg. Currently hypotensive. Blood pressures as above. (7) Bradycardia: Resolved. Patient in RVR now. Restarted metoprolol as above. Plan Patient has mild leukocytosis. For now no active signs of infection. Chest x-ray repeated yesterday negative for any pneumonia. UA repeated yesterday negative for any UTI. Patient denies of having any dysuria. This patient is critically sick for now we will empirically start her on ceftriaxone 1 g IV daily. Analgesia: Tylenol as needed Glycemic control: Not needed. Nutrition: Mechanical soft cardiac diet CODE STATUS: Discussed in detail with patient. She would want to remain full code for now. PUD prophylaxis: Protonix DVT prophylaxis: Full dose Lovenox will suffice this DVT prophylaxis Discharge planning: Home with home health once patient medically stable. Continue with care at ICU level This documentation was created by [employer] electric train driver software. Every effort was made to ensure accuracy of electric train driver. Any obvious errors or omissions should be clarified with the author of the document. Attestations Medical Necessity Statement*: Requires further hospitalization for management of cardiogenic shock in setting of recent non-ST elevation SC, new systolic and diastolic congestive heart failure, atrial fibrillation with rapid ventricular response Critical Care Time: The high probability of a clinically significant, sudden or life threatening deterioration of the patient's [cardiac, renal] system(s) required my full and direct attention, intervention and personal management. The critical care time is as shown. This time is in addition to time spent performing any reported procedures but includes the following: [x] Data and vital sign review and interpretation [x] Patient assessment, examination and intervention [x] Documentation [x] Medication orders and management Critical Care Time (min): 50 Coding Level of Care Code Acute Valet for [facility] Diagnoses Cardiogenic shock R57.0 Non-ST elevation SC (NSTEMI) I21.4 Chronic episodic atrial fibrillation I48.20 Acute kidney injury N17.9 Congestive heart failure I50.43 Heart failure type: combined systolic and diastolic Heart failure chronicity: acute on chronic Benign essential hypertension with target blood pressure below 140/90 I10 Bradycardia R00.1
[2022-06-13] MEDS: potassium chloride ER 20 mEq Tablet 40 MEQ PO (13:49)
[2022-06-13] MEDS: FUROsemide 10 mg/mL SDV 4mL 40 MG IVP (13:49)
--- NOTE | 2022-06-13 17:47 | P.PN_ITS ---
Subjective Subjective: Patient was transferred to ICU yesterday evening secondary to A. fib with RVR and hypotension. Bedside echocardiogram was performed that showed severely reduced LV systolic function. No significant pericardial effusion was seen. She was started on Levophed. Pleural effusion was also noted on chest x- ray. Vitals/I&O/Wt Last Vital Signs Temp 98.2 F 06/13/22 13:15 Pulse 100 06/13/22 16:00 Resp 13 06/13/22 16:00 BP 95/58 06/13/22 16:00 Pulse Ox 97 06/13/22 16:00 O2 Del Method 06/13/22 16:00 O2 Flow Rate 2 06/13/22 16:00 06/13/22 06/13/22 06/13/22 06:59 14:59 22:59 Intake Total 1361.925 / 1800.204 734.577 / 734.577 Output Total 200 / 950 1250 / 1250 Balance 1161.925 / 850.204 734.577 / 734.577 -1250 / -515.423 Weight last 48 hrs Weight 175 lb 4.8 oz Physical Exam Narrative: GENERAL: Patient is alert, awake and oriented x3. [] NECK: No jugular vein distension. [] HEENT: No cyanosis. No icterus. No pallor. [] HEART: Regular S1 and S2. LUNGS: Mild crackles bilaterally. ABDOMEN: Soft, nontender and nondistended. Positive bowel sounds. No guarding, rebound or tenderness. [] CENTRAL NERVOUS SYSTEM: Grossly nonfocal. [] EXTREMITIES: Lower extremities with 1+ edema bilaterally. Pulses palpable in the lower extremities, both dorsalis pedis and posterior tibial. [] Urinary Catheter Management: Archer: Cath Placed During This Visit: yes Reason for Continuing Indwelling Catheter: Accurate Measurement of Urinary Output in Critically Ill Patients Urinary Catheter Date of Insertion: 06/12/22 Urinary Catheter Time of Insertion: 09:00 Data 06/13/22 03:05 06/13/22 03:05 Micro: Microbiology 06/13/22 11:15 MRSA Culture - Final Nose 06/12/22 09:20 Urine Culture - Preliminary Urine Catheterized A&P Assessment and plan (1) Non-ST elevation DE (NSTEMI): (2) Chronic diastolic CHF (congestive heart failure): (3) Bradycardia: (4) Carotid stenosis: Qualifiers: Laterality: left Qualified Code(s): I65.22 - Occlusion and stenosis of left carotid artery (5) Hypertension: Plan Patient presented with non-ST elevation DE. Coronary angiogram revealed criti macario, subtotal occlusion of mid LAD. She underwent successful revascularization with RICHY x2. Postprocedure patient complained of chest discomfort again and had ST elevation transiently in anterior and anterolateral leads. Repeat angiogram demonstrated patent stents however there was embolization of thrombus to apical LAD. Patient was started on Aggrastat drip and was put on nitro drip. She is chest pain-free. Last night she became hypotensive and is requiring Levophed. Likely etiology is cardiogenic shock. We will repeat lactate. If it is elevated, will start on milrinone. Continue plavix and aspirin. Will also recommend starting anticoagulation now Once blood pressure is more than 100 mmHg systolic, start IV diuretics Thank you for involving us with care of this patient. We will continue to follow. Please call with questions Attestations Medical Necessity Statement*: Care expected to cross 2 midnights. Coding Level of Care Code Acute Director Of Culture for Adan Haro Diagnoses Non-ST elevation DE (NSTEMI) I21.4 Chronic diastolic CHF (congestive heart failure) I50.32 Bradycardia R00.1 Carotid stenosis I65.22 Laterality: left Hypertension I10
[2022-06-13 18:28] LABS: Anion Gap 12.7 (5-19); Blood Urea Nitrogen 18 mg/dL (8-23); Calcium 8.7 mg/dL (8.5-10.5); Carbon Dioxide 25 mmol/L (22-29); Chloride 92 mmol/L (98-107); Glucose 169 mg/dL (65-115); Osmolality Calculated 268 mOsm/kg (285-295); Potassium 3.7 mmol/L (3.5-5.1); Sodium 126 mmol/L (136-145)
--- NOTE | 2022-06-13 23:59 | PC.NURSE ---
2358- pt in afib with hr increasing to 120s-130s, dr fabian notified, will continue to monitor and continue amiodarone drip at this time.
[2022-06-14] VITALS (89 sets, daily range): BP systolic 70–121; BP diastolic 45–79; PULSE 88–146; RESP 12–31; TEMP 36.6–37.5; O2SAT 81–99
[2022-06-14 05:17] LABS: Basophils # 0.1 10^3/uL (0.0-0.1); Basophils % 0.5 %; Eosinophils # 0.1 10^3/uL (0.0-0.8); Eosinophils % 0.7 %; Hematocrit 39.1 % (37.0-47.0); Lymphocytes # 2.8 10^3/uL (0.8-4.8); Lymphocytes % 22.1 %; Mean Corpuscular HGB Conc 33.2 g/dL (30.0-36.0); Mean Corpuscular Hemoglobin 31.6 pg (28.0-34.0); Mean Corpuscular Volume 95.1 fl (81-99); Monocytes # 1.1 10^3/uL (0.2-0.9); Neutrophils # 8.39 10^3/uL (1.8-7.7); Neutrophils % 67.1 %; Nucleated Red Blood Cells % 0 %; Platelet Count 264 10^3/cmm (130-400); Red Blood Count 4.11 10^6/uL (4.1-5.3); Red Cell Distribution Width 12.5 % (12.1-15.1); White Blood Count 12.5 10^3/uL (4.0-10.0)
[2022-06-14 05:34] LABS: Alanine Aminotransferase 23 U/L (0-33); Alkaline Phosphatase 57 U/L (35-105); Anion Gap 12.8 (5-19); Aspartate Amino Transferase 66 U/L (0-32); Blood Urea Nitrogen 16 mg/dL (8-23); Calcium 8.8 mg/dL (8.5-10.5); Carbon Dioxide 27 mmol/L (22-29); Chloride 95 mmol/L (98-107); Globulin 3.5 g/dL (1.3-4.6); Glucose 143 mg/dL (65-115); Osmolality Calculated 276 mOsm/kg (285-295); Potassium 3.8 mmol/L (3.5-5.1); Sodium 131 mmol/L (136-145); Total Bilirubin 0.6 mg/dL (0.15-1.2); Total Protein 6.5 g/dL (6.6-8.7)
[2022-06-14] MEDS: clopidogrel 75 mg Tablet PO (08:39)
[2022-06-14] MEDS: aspirin 81 mg EC Tablet PO (08:39)
[2022-06-14] MEDS: levothyroxine 25 mcg Tablet PO (08:39)
[2022-06-14] MEDS: potassium chloride ER 20 mEq Tablet 40 MEQ PO (08:39)
[2022-06-14] MEDS: pantoprazole DR 40 mg Tablet PO (08:39)
[2022-06-14] MEDS: oxybutynin chloride XL 5 MG TABLET PO (08:39)
[2022-06-14] MEDS: digoxin 250 mcg/ml INJ 2 mL 500 MCG IVP (08:42)
[2022-06-14] MEDS: sodium chloride 0.9% 250 ML 125 ML IV (09:28)
--- NOTE | 2022-06-14 09:41 | PC.SOCIAL ---
Pg 2 IMM Explained to pt Pg 2 IMM. No questions voiced. Provided pt a copy. Initialed, dated, & timed a copy & placed in chart.
[2022-06-14] MEDS: enoxaparin 80 mg/0.8 mL Syringe SUBCUT ×2 (10:06→23:09)
[2022-06-14] MEDS: sodium chloride 0.9% 250 ML IV (12:11)
[2022-06-14] MEDS: digoxin 250 mcg/ml INJ 2 mL IVP ×2 (14:00→20:19)
--- NOTE | 2022-06-14 15:26 | P.PN_ITS ---
Subjective Subjective: Overnight patient has remained on amiodarone drip. Today morning seen with a Levophed drip of 6 mics per hour which was weaned down to around 1 keeping mean arterial pressure over 70. Documented urine output in last 24 hours more than 2500. Patient on examination today is awake and alert. Sitting up in chair. Denies any new complaints. Able to have her meals. Heart rate seems to be trending up during the day going up to 150s but after starting on digoxin load heart rate has seemed to have settled down to 90s to 100 again. Vitals/I&O/Wt Last Vital Signs Temp 99.5 F 06/14/22 08:30 Pulse 115 H 06/14/22 13:30 Resp 20 H 06/14/22 13:30 BP 105/67 06/14/22 13:30 Pulse Ox 81 L 06/14/22 13:30 O2 Del Method 06/14/22 07:50 O2 Flow Rate 2 06/14/22 07:50 06/14/22 06/14/22 06/14/22 06:59 14:59 22:59 Intake Total 252.222 / 9234.661 6093.265 / 1241.265 Output Total 350 / 2450 Balance -97.778 / -415.148 8977.265 / 1241.265 Weight last 48 hrs Weight 81.5 kg Weight 79.515 kg Physical Exam Narrative: General: No acute distress, AO x3, tired appearing HEENT: PERRLA, pupils bilaterally equal and reactive, pallors not present Chest: Normal vesicular breath sounds, bilateral basilar crackles, equal good air entry bilaterally CVS: S1-S2 irregularly irregular, soft pansystolic murmur at apex, no tachycardia, no gallops, no rubs Abdomen: Soft, nontender, no organomegaly, bowel sounds present Neuro: No focal deficits, no facial deformity, AO x3, power 5/5 in all limbs Urinary Catheter Management: Archer: Cath Placed During This Visit: yes Reason for Continuing Indwelling Catheter: Accurate Measurement of Urinary Output in Critically Ill Patients Urinary Catheter Date of Insertion: 06/12/22 Urinary Catheter Time of Insertion: 09:00 Data 06/14/22 04:48 06/14/22 04:48 Micro: Microbiology 06/12/22 09:20 Urine Culture - Final Urine Catheterized 06/13/22 11:15 MRSA Culture - Final Nose A&P Assessment and plan (1) Cardiogenic shock: In setting of recent non-ST elevation [place] post PCI. Keep mean artery pressure over 65. Continue with Levophed. Will wean off accordingly. Monitor urine output. (2) Non-ST elevation KY (NSTEMI): Appreciate cardiology recommendations. Patient is post PCI with RICHY x2 to LAD. Repeat cardiac angiogram showed patent stent with distalization of thrombus. Continue with aspirin, Plavix. Patient allergic to statin. Echocardiogram shows an EF of 25 to 30% with akinesia of anterior and apical wall. No active chest pain currently. (3) Chronic episodic atrial fibrillation: Chronic history. Takes propafenone and metoprolol at home. Currently both at hold secondary to cardiogenic shock. Start on amiodarone drip after bolus. For now we will switch to Lovenox 1 mg/kg body weight every 12 hourly. (4) Acute kidney injury: In setting of cardiogenic shock. Creatinine up to 1.2. Baseline creatinine 0.9-1.1. Strict input output charting. Medical reconciliation done for nephrotoxic drugs. (5) Congestive heart failure: Now systolic and diastolic combined. As above. Once meaner pressures are maintained over 65 we will plan for IV Lasix 40 mg once. Keep strict input output charting. Daily weights. Continue with Archer catheterization. Qualifiers: Heart failure type: combined systolic and diastolic Heart failure chronicity: acute on chronic Qualified Code(s): I50.43 - Acute on chronic combined systolic (congestive) and diastolic (congestive) heart failure (6) Benign essential hypertension with target blood pressure below 140/90: Goal blood pressure less than 140/90 mmHg. Currently hypotensive. Blood pressures as above. (7) Bradycardia: Resolved. Patient in RVR now. Restarted metoprolol as above. Plan Patient has mild leukocytosis. For now no active signs of infection. Chest x- ray repeated yesterday negative for any pneumonia. UA repeated yesterday negative for any UTI. Patient denies of having any dysuria. This patient is critically sick for now we will empirically start her on ceftriaxone 1 g IV daily. Analgesia: Tylenol as needed Glycemic control: Not needed. Nutrition: Mechanical soft cardiac diet CODE STATUS: Discussed in detail with patient. She would want to remain full code for now. PUD prophylaxis: Protonix DVT prophylaxis: Full dose Lovenox will suffice this DVT prophylaxis Discharge planning: Home with home health once patient medically stable. Continue with care at ICU level Plan for the day: Wean off Levophed keeping mean artery pressure around 70. Continue with amiodarone drip. Start on digoxin load with 500 mcg followed by 250 every 6 hours for 2 doses. Hold off on propafenone and metoprolol for now. If heart rate continues to remain high we will plan for cardioversion. Strict input output charting. Plan to keep input equal to output today. If needed will give slow boluses. Continue with cardiac mechanical soft diet. This documentation was created by [employer] community life director software. Every effort was made to ensure accuracy of community life director. Any obvious errors or omissions should be clarified with the author of the document. Attestations Medical Necessity Statement*: Requires further hospitalization for management of cardiogenic shock in a patient with post non-ST elevation [place], post PCI, A. fib with RVR Critical Care Time: The high probability of a clinically significant, sudden or life threatening deterioration of the patient's [cardiac, renal] system(s) required my full and direct attention, intervention and personal management. The critical care time is as shown. 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
--- NOTE | 2022-06-14 20:07 | P.PN_ITS ---
Subjective Subjective: Patient has increased urine output. LFTs have improved. Still requiring minimal Levophed. Heart rate is elevated. On amio drip. Vitals/I&O/Wt Last Vital Signs Temp 99.5 F 06/14/22 08:30 Pulse 113 H 06/14/22 16:15 Resp 21 H 06/14/22 16:15 BP 107/74 06/14/22 16:15 Pulse Ox 92 06/14/22 16:00 O2 Del Method 06/14/22 07:50 O2 Flow Rate 2 06/14/22 07:50 06/14/22 06/14/22 06/14/22 06:59 14:59 22:59 Intake Total 252.222 / 7326.836 8228.265 / 1241.265 240 / 1481.265 Output Total 350 / 2450 1600 / 1600 Balance -97.778 / -024.236 9482.265 / 1241.265 -1360 / -118.735 Weight last 48 hrs Weight 179 lb 10.828 oz Weight 175 lb 4.8 oz Physical Exam Narrative: GENERAL: Patient is alert, awake and oriented x3. [] NECK: No jugular vein distension. [] HEENT: No cyanosis. No icterus. No pallor. [] HEART: Regular S1 and S2. LUNGS: Mild crackles bilaterally. ABDOMEN: Soft, nontender and nondistended. Positive bowel sounds. No guarding, rebound or tenderness. [] CENTRAL NERVOUS SYSTEM: Grossly nonfocal. [] EXTREMITIES: Lower extremities with 1+ edema bilaterally. Pulses palpable in the lower extremities, both dorsalis pedis and posterior tibial. [] Urinary Catheter Management: Archer: Cath Placed During This Visit: yes Reason for Continuing Indwelling Catheter: Accurate Measurement of Urinary Output in Critically Ill Patients Urinary Catheter Date of Insertion: 06/12/22 Urinary Catheter Time of Insertion: 09:00 Data 06/14/22 04:48 06/14/22 04:48 Micro: Microbiology 06/12/22 09:20 Urine Culture - Final Urine Catheterized 06/13/22 11:15 MRSA Culture - Final Nose A&P Assessment and plan (1) Non-ST elevation [place] (NSTEMI): (2) Chronic diastolic CHF (congestive heart failure): (3) Bradycardia: (4) Carotid stenosis: Qualifiers: Laterality: left Qualified Code(s): I65.22 - Occlusion and stenosis of left carotid artery (5) Hypertension: Plan Patient presented with non-ST elevation MO. Coronary angiogram revealed critical, subtotal occlusion of mid LAD. She underwent successful revascularization with RICHY x2. Postprocedure patient complained of chest discomfort again and had ST elevation transiently in anterior and anterolateral leads. Repeat angiogram demonstrated patent stents however there was embolization of thrombus to apical LAD. Patient was started on Aggrastat drip and was put on nitro drip. She is chest pain-free. Overall she has improved with increased urine output and improving LFTs. However she is still in A. fib with RVR. Continue amiodarone drip. We will hold off on the propafenone given recent MO. Continue plavix and aspirin. Continue anticoagulation Gentle IV diuretics Thank you for involving us with care of this patient. We will continue to follow. Please call with questions Attestations Medical Necessity Statement*: Care expected to cross 2 midnights. 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
[2022-06-14] MEDS: temazepam 15 mg Capsule PO (22:01)
[2022-06-15] VITALS (87 sets, daily range): BP systolic 78–118; BP diastolic 42–82; PULSE 83–122; RESP 13–31; TEMP 36.7–37.1; O2SAT 79–100
[2022-06-15 05:21] LABS: Basophils # 0.1 10^3/uL (0.0-0.1); Basophils % 0.6 %; Eosinophils # 0.2 10^3/uL (0.0-0.8); Hematocrit 34.6 % (37.0-47.0); Lymphocytes # 2.5 10^3/uL (0.8-4.8); Lymphocytes % 28.5 %; Mean Corpuscular HGB Conc 31.8 g/dL (30.0-36.0); Mean Corpuscular Hemoglobin 31.6 pg (28.0-34.0); Mean Corpuscular Volume 99.4 fl (81-99); Monocytes # 0.9 10^3/uL (0.2-0.9); Monocytes % 10.6 %; Neutrophils # 5.03 10^3/uL (1.8-7.7); Neutrophils % 57.7 %; Nucleated Red Blood Cells % 0 %; Platelet Count 243 10^3/cmm (130-400); Red Blood Count 3.48 10^6/uL (4.1-5.3); Red Cell Distribution Width 12.8 % (12.1-15.1); White Blood Count 8.7 10^3/uL (4.0-10.0)
[2022-06-15 05:39] LABS: Alanine Aminotransferase 37 U/L (0-33); Albumin Level 2.5 g/dL (3.5-5.2); Alkaline Phosphatase 68 U/L (35-105); Aspartate Amino Transferase 63 U/L (0-32); Blood Urea Nitrogen 14 mg/dL (8-23); Calcium 8.5 mg/dL (8.5-10.5); Carbon Dioxide 27 mmol/L (22-29); Chloride 102 mmol/L (98-107); Globulin 3.4 g/dL (1.3-4.6); Glucose 110 mg/dL (65-115); Osmolality Calculated 283 mOsm/kg (285-295); Sodium 136 mmol/L (136-145); Total Bilirubin 0.7 mg/dL (0.15-1.2); Total Protein 5.9 g/dL (6.6-8.7)
[2022-06-15] MEDS: oxybutynin chloride XL 5 MG TABLET PO (08:06)
[2022-06-15] MEDS: clopidogrel 75 mg Tablet PO (08:06)
[2022-06-15] MEDS: aspirin 81 mg EC Tablet PO (08:06)
[2022-06-15] MEDS: pantoprazole DR 40 mg Tablet PO (08:06)
[2022-06-15] MEDS: levothyroxine 25 mcg Tablet PO (08:06)
[2022-06-15] MEDS: amiodarone 200 mg Tablet 400 MG PO ×2 (09:24→18:05)
[2022-06-15] MEDS: FUROsemide 10 mg/mL SDV 2mL 20 MG IVP (09:24)
--- NOTE | 2022-06-15 10:22 | PC.CHAP ---
Pastoral Care Encounter/Spiritual Assessment Type of Contact [] Declined engraver tire mold visit [] Patient/Family/Request visit [] Outpatient visit [] Follow-up visit [] Physician referral [] Code/Alert [x] Routine visit [] Staff referral [] Actively dying [] Patient sleeping [x] Family support [] [] Out of room [] Palliative care [] [] Receiving care in room [] Pre-surgical visit [] Trauma [] Long length of stay [x] ICU visit [x] Other: rested well.. Relational/Emotional Strength [] Patient feels connected with others/family/visitors/staff [] Distress [] Loneliness/isolation [] Abandonment Spirituality of Patient [] Person of Ann [] Attends Mandaen of their Ann [] Believes in Prayer [] Reads Bible or Faith materials [] There are Spiritual issues to be addressed Resource Coordinator Interventions [] Prayer [] Active listening [] Non-anxious presence [] Spiritual/emotional support [] Crisis/trauma care [] Spiritual counseling [] Bereavement support [] Provided bereavement packet [] Provided Bible/devotional materials [] Provided toy/stuffed animal, coloring book to patient or family member [] Provided Communion [] Anointing/[place] [] Salvation [x] Completed spiritual assessment [] Other: Impact on Illness or Injury [] Angry [] Fearful [] Anxious [] Often cries [] Exhaustion [] Unable to work [] Unable to attend samaritan [] Unable to walk/stand [] Unable to read [] Unable to drive [] Unable to eat/drink [] Unable to sleep [] Unable to be with family [] Patient intubated [] Other: Summary Time spent with patient
[2022-06-15] MEDS: enoxaparin 80 mg/0.8 mL Syringe SUBCUT ×2 (11:43→22:28)
[2022-06-15] MEDS: acetaminophen 325 mg Tablet 650 MG PO (15:10)
[2022-06-15] MEDS: nitroglycerin 0.4 mg sublingual Tablet SUBLINGUAL ×3 (15:16→16:01)
[2022-06-15] MEDS: morphine 4 mg/mL SDV 1 mL 2 MG IVP (15:17)
--- NOTE | 2022-06-15 15:24 | ECG_ITS ---
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 Measurements Intervals [place] Rate: 112 P: 0 [place]: 0 QRS: -57 QRSD: 79 T: 38 QT: 299 QTc: 410 Interpretive Statements ATRIAL FIBRILLATION WITH RAPID VENTRICULAR RESPONSE ANTERIOR MYOCARDIAL INFARCTION , POSSIBLY ACUTE [40+ ms Q WAVE AND/OR ST/T ABNORMALITY IN V3/V4] INFERIOR MYOCARDIAL INFARCTION , POSSIBLY ACUTE [40+ ms Q WAVE AND/OR ST/T ABNORMALITY IN II/aVF] MARKED ST ELEVATION, CONSIDER LATERAL INJURY [MARKED ST ELEVATION W/O NORMALLY INFLECTED T-WAVE IN I/aVL/V5/V6] ACUTE IL Compared to ECG 06/12/2022 09:17:29 Sinus rhythm no longer present Myocardial infarct finding still present ST (T wave) deviation still present Electronically Signed On 06-15-2022 17:04:38 FOLDER OPERATOR by Darci Ruiz M.D. [id number]
[2022-06-15] MEDS: ondansetron 2 mg/ML SDV 2 mL 4 MG IVP (15:45)
[2022-06-15] MEDS: aspirin 325 mg Tablet PO (15:51)
--- NOTE | 2022-06-15 16:06 | XRR_ITS ---
PROCEDURE INFORMATION: Exam: XR Chest Exam date and time: 06/15/2022 4:25 PM Age: 76 years old Clinical indication: Pain; Right-sided; Additional info: R lower chest pain TECHNIQUE: Imaging protocol: Radiologic exam of the chest. Views: 1 view. COMPARISON: CR (CHEST, ) 06/12/2022 8:08 PM FINDINGS: Lungs: Ill-defined opacities at the lung bases likely reflecting atelectasis. Pleural spaces: Small volume pleural effusions. No pneumothorax. Heart/Mediastinum: Mild cardiomegaly. Bones/joints: Visualized osseous structures are intact. XR/XR chest 1V portable 51019 IMPRESSION: Mild cardiomegaly, with small volume pleural effusions, and ill-defined opacities at the lung bases likely reflecting corresponding atelectasis.
[2022-06-15] MEDS: nitroglycerin drip 50 MG/250 ML PREMIX IV (16:28)
--- NOTE | 2022-06-15 16:35 | XACV_ITS ---
Exam Room: [facility] Ht: 160 cm Wt: 76 kg BSA: 1.86 m2 Gender: Female : 1945 Any Known Allergies: Other Exam Priority: Routine Procedure(s): Procedure Description: Diagnostic procedure Procedure Description: Left Heart Catheterization Procedure Description: Coronary Angiography Diagnostic Cath Status: Urgent Diagnostic Findings * INDICATION: Patient with recent PCI of LAD, and persistent ST elevations since VT, again started having crushing chest pain. Given EKG changes on baseline made interpretation impossible, we proceeded with coronary angiogram. * Left Main has no significant disease. * Circumflex has no significant disease. * Right Coronary Artery has mild mid disease. * LAD has patent prior stent. Apical LAD has total occlusion which is unchanged from before.. * Coronary angiography shows right dominance. Conclusions 1. Patent prior LAD stent. No significant change from prior coronary angiogram. Apical LAD is occluded, unchanged from before.. Recommendations * Aggressive risk factor modification. * Assess for alternative causes of chest discomfort. May need chest CTA. * Patient cardiology follow-up. Interventional RX Recommendation: medical therapy and/or counseling Diagnostic RX Recommendation: medical therapy and/or counseling Pressures Phase:Rest AO : 89 / 78 ( 83 ) @ 5:17:00 PM LV : 124 / 0 / 17 @ 5:22:00 PM Clinical Evaluation EBL: 5mL-10mL Procedural Details Procedure Consent Obtained. Admit Source: In Patient. Pre-Procedure Time Out. Identified patient by full name and date of as verbalized by the patient/guarantor. Does the consent match the physician's order: Yes. Accurate & Complete Informed Consent: Yes. Inpatient/Outpatient History & Physical on Chart: Yes. If H&P is completed, is and addenduem needed: N/A; If yes, is the addendum complete: N/A. Visualize and Verify Site with Patient/Guarantor: N/A. Relevant Radiology Images available: N/A. Pre-op teaching completed and patient verbalized understanding. The risks, benefits, and alternatives of sedation and/or procedure were discussed by physician. The patient agrees to continue. Procedure started. [facility] Clinical Fraility Score: 5: Mildly Frail. 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 Chest Pain Symptom Assessment: Typical Angina Symptoms. Correct patient, site and procedure confirmed by cath team. Current diagnosis: Chest Pain. PERRLA. Strong, equal hand sleeping car porter bilaterally. Lungs clear x 5 lobes. IV Site on Arrival: 18 gauge in the left anticubital. IV Site on Arrival: 20 gauge in the right forearm. IV Fluids: 0.9% NaCl at KVO. 100 mL infused prior to molder labels. Oxygen started at 2liters/min via nasal canula. left groin was prepped with chloroprep then draped in the usual sterile fashion. Physician notified. Baseline sample Acquired. HR: 20 BPM. Physician arrived. Physician scrubbed in. Immediate Pre-Procedure Time Out. Correct Patient: Yes; Correct Procedure: Yes; Correct Site: Yes; Correct Patient Position: Yes; Correct Supplies: Yes; Dried Flammable Prep: Yes; Blood Products Available: N/A;. Lidocaine 1% infiltrated to the left groin. Arterial access obtained with micropuncture set. A 5 qatari JL4 catheter in over wire. Catheter removed over the standard wire. A 5 qatari JR4 catheter in over wire. EDP Sample taken: LV 124/-1,17; HR: 123 BPM; SpO2: 97%. Catheter out. Multiple views taken of right coronary artery. Multiple views taken of left coronary artery. A Suture was successful obtaining hemostatsis at the Right Femoral artery insertion site. Physician review of cine films. Sheath(s) sutured into position with 2-0 silk and sterile 4x4's and Op-site applied over the site. No oozing or signs and symptoms of hematoma noted. Post Procedure: Pulses reassessed and unchanged. PERRLA. Strong, equal hand sleeping car porter bilaterally. No VTE prophylaxis required. Medication's Wasted: Heparin = 4000 u. Medication's Wasted: Other = Fentanyl 50 mcg. Complications: none. Estimated blood loss: 5mL-10mL. Responsiveness - Normal response to verbal stimuli; alert and oriented, PERRLA. Airway - Unaffected, no intervention required; spontaneous ventilation. Circulation: W/N/L, pulses unchanged. Nausea/Vomiting: N/A. Procedure completed. Patient transferred by bed to ICU. Vital chart was stopped. Access Site Site: Right Femoral artery Sheath Size: 6 Fr Hemostasis Method: Suture Hemostasis Success: Successful Procedure Medications Start: 5:08 PM Stop: 5:08 PM Medication: Fentanyl Amount: 25 mcg Route: I.V. Start: 5:08 PM Stop: 5:08 PM Medication: Versed Amount: 1 mg Route: I.V. Start: 5:10 PM Stop: 5:10 PM Medication: Nitrogylcerin Amount: 15 mcg Route: I.V. drip Start: 5:10 PM Stop: 5:10 PM Medication: Levophed (norepinephrine) Amount: 2 mcg/min Route: I.V. drip Start: 5:16 PM Stop: 5:16 PM Medication: Versed Amount: 1 mg Route: I.V. Start: 5:16 PM Stop: 5:16 PM Medication: Fentanyl Amount: 25 mcg Route: I.V. I, the attending physician, have reviewed and verified all procedure medications. Yes, all medications given per verbal order History/Risk Factors Hypertension: Yes Dyslipidemia: No Peripheral Arterial Disease (PAD): No Myocardial Infarction (VT): No Obesity: Yes Renal Disease: No Tobacco Use: Former Prior Interventions PCI: No CABG: No Valve Surgery: No Report Signatures Finalized by Darci Ruiz MD on 06/29/2022 05:37 PM
--- NOTE | 2022-06-15 17:01 | PC.NURSE ---
Around approximately 1523 patient started complaining of severe chest pain radiating to back and arm. Administered sublingual nitro per SEP and protocol, obtained EKG, notified Dr. Ruiz and Dr. Bills of changes and both came to assess patient. 3 rounds of sublingual nitro given. IV morphine given per SEP, nitro gtt started per Dr. Ruiz which resulted in resuming levophed gtt to maintain blood pressure, pain still not relieved 15 minutes after nitro gtt started. labor employment associate team called in and patient back to labor employment associate at 1700. Consent on chart and family bedside before patient left for labor delivery specialist.
--- NOTE | 2022-06-15 17:54 | XRR_ITS ---
PROCEDURE INFORMATION: Exam: XR Right Ribs Exam date and time: 06/15/2022 6:13 PM Age: 76 years old Clinical indication: Other: RT rib pain; Additional info: RT side pain, pleuritic pain, pain with turning TECHNIQUE: Imaging protocol: Radiologic exam of the Right ribs. Views: 2 views. COMPARISON: CR (CHEST, ) 06/15/2022 4:25 PM FINDINGS: Bones/joints: No evidence of right rib fracture. Soft tissues: Normal. XR/XR ribs RT 2V* 40250 IMPRESSION: No acute findings.
--- NOTE | 2022-06-15 18:01 | P.PN_ITS ---
Subjective Subjective: Earlier this morning she is feeling better without any chest pain or pressure, no trouble breathing. Improving on blood pressure, wean down in the morning to 1 g/min Levophed, 20 weaned off. However, later on in the afternoon reported chest pain 10/10, right lower chest. EKG obtained with concern again for ST elevations. Initially responded to nitroglycerin plus morphine. Subsequently pain returned again, taken again for reevaluation with coronary angiogram with similar findings to prior, patent stents, embolization of thrombus to apical LAD. Was restarted on nitro drip. Vitals/I&O/Wt Last Vital Signs Temp 98.1 F 06/15/22 04:00 Pulse 107 H 06/15/22 16:00 Resp 27 H 06/15/22 16:00 BP 103/59 06/15/22 16:00 Pulse Ox 86 L 06/15/22 16:00 O2 Del Method 06/15/22 07:48 O2 Flow Rate 3 06/15/22 07:48 06/15/22 06/15/22 06/15/22 06:59 14:59 22:59 Intake Total 49.53 / 1710.485 839.792 / 839.792 0 / 839.792 Output Total 550 / 2150 1350 / 1350 Balance -500.47 / -439.515 -510.208 / -510.208 0 / -510.208 Weight last 48 hrs Weight 77.6 kg Weight 81.5 kg Physical Exam Urinary Catheter Management: Archer: Cath Placed During This Visit: yes Reason for Continuing Indwelling Catheter: Accurate Measurement of Urinary Output in Critically Ill Patients Urinary Catheter Date of Insertion: 06/12/22 Urinary Catheter Time of Insertion: 09:00 Data 06/15/22 03:44 06/15/22 03:44 A&P Assessment and plan (1) Non-ST elevation [place] (NSTEMI): Additional assessment today with coronary angiography after several discussions with cardiology with her and family, after chest pain returned with concerning EKG findings after pain initially responding to nitroglycerin, morphine. Received aspirin 325 mg. Currently restarted on nitro drip. Additional assessment for other causes of chest pain as below. Patient is post PCI with RICHY x2 to LAD. Repeat cardiac angiogram showed patent stent with distalization of thrombus. Left ventricular aneurysm. Continue with aspirin, Plavix. Patient allergic to statin. Echocardiogram shows an EF of 25 to 30% with akinesia of anterior and apical wall. Consideration of post CA pericarditis. (2) Chest pain: Underwent additional patient with repeat coronary angiogram with similar and expected findings. Right lower chest pain sharp, additionally some reproducibility with movement, inspiration. Discussed additionally lower possibility of PE given she has been anticoagulated, also D-dimer was low, no suggestion of RV failure on TTE. In case of recurrent pain, worsening hypoxia, or other concerning changes, consider addition of Versed by CT angiogram, although again likelihood of PE lower, with risk of kidney injury as well with additional contrast dye load. However, in case of concerning changes may still be considered. Additional assessment by chest x-ray, noted possible atelectasis in lower lobes. Small pleural effusions. We will additionally test for COVID-19, influenza. Low-grade temp 100.3 Fahrenheit on 06/12. Provide empiric coverage for now also with ceftriaxone and azithromycin. Incentive spirometer. With cough, pain on inspiration, turning in bed, will assess right side rib series. Additionally with right lower chest pain assessment with gallbladder ultrasound. (3) Cardiogenic shock: Course improving, was weaning down and weaned off Levophed, however, with return of chest pain, nitroglycerin x3, starting nitro drip, Levophed had to be resumed. In setting of recent non-ST elevation CA post PCI. Keep mean artery pressure over 65. Continue with Levophed. Will wean off accordingly. Monitor urine output. (4) Chronic episodic atrial fibrillation: A. fib with RVR, transition to p.o. amiodarone. Chronic history. Takes propafenone and metoprolol at home. Currently both at hold secondary to cardiogenic shock. For now continue Lovenox 1 mg/kg body weight every 12 hourly. (5) Acute kidney injury: In setting of cardiogenic shock. Improved creatinine. Reassess renal function. Baseline creatinine 0.9-1.1. (6) Congestive heart failure: Now systolic and diastolic combined. Received Lasix dose x1. Reassess volume status. Keep strict input output charting. Daily weights. Continue with Archer catheterization. Qualifiers: Heart failure type: combined systolic and diastolic Heart failure c hronicity: acute on chronic Qualified Code(s): I50.43 - Acute on chronic combined systolic (congestive) and diastolic (congestive) heart failure (7) Benign essential hypertension with target blood pressure below 140/90: Goal blood pressure less than 140/90 mmHg. Blood pressure soft. (8) Bradycardia: Resolved. Patient in RVR now. Plan Analgesia: Tylenol, Motrin as needed Glycemic control: Not needed. Nutrition: Mechanical soft cardiac diet CODE STATUS: full code PUD prophylaxis: Protonix DVT prophylaxis: Full dose Lovenox will suffice this DVT prophylaxis Discharge planning: Home with home health once patient medically stable. Continue with care at ICU level Attestations Medical Necessity Statement*: Continue admission for continued assessment of management following NSTEMI, cardiogenic shock, left ventricular aneurysmal dilation, recurrent chest pain, concerning EKG changes, consideration of post CA pericarditis, assessment of other possible causes of chest pain and comorbidities as above. Coding Level of Care Code Acute Histology Specialist for Chg Fwd Diagnoses Non-ST elevation CA (NSTEMI) I21.4 Chest pain R07.9 Cardiogenic shock R57.0 Chronic episodic atrial fibrillation I48.20 Acute kidney injury N17.9 Congestive heart failure I50.43 Heart failure type: combined systolic and diastolic Heart failure chronicity: acute on chronic Benign essential hypertension with target blood pressure below 140/90 I10 Bradycardia R00.1
--- NOTE | 2022-06-15 18:12 | PM.PN ---
Subjective Subjective: Patient complained of worsening chest pain that was 10 x 10 in intensity. Given her recent stents, decision was made to perform emergent coronary angiogram. LAD stent was patent. Apical LAD that was diffusely diseased and occluded on previous angiogram as well and was unchanged. Otherwise no significant findings on angiogram. Vitals/I&O/Wt Last Vital Signs Temp 98.1 F 06/15/22 04:00 Pulse 107 H 06/15/22 16:00 Resp 27 H 06/15/22 16:00 BP 103/59 06/15/22 16:00 Pulse Ox 86 L 06/15/22 16:00 O2 Del Method 06/15/22 07:48 O2 Flow Rate 3 06/15/22 07:48 06/15/22 06/15/22 06/15/22 06:59 14:59 22:59 Intake Total 49.53 / 1710.485 839.792 / 839.792 0 / 839.792 Output Total 550 / 2150 1350 / 1350 Balance -500.47 / -439.515 -510.208 / -510.208 0 / -510.208 Weight last 48 hrs Weight 171 lb 1.259 oz Weight 179 lb 10.828 oz Physical Exam Narrative: GENERAL: Patient is alert, awake and oriented x3. [] NECK: No jugular vein distension. [] HEENT: No cyanosis. No icterus. No pallor. [] HEART: Regular S1 and S2. LUNGS: Mild crackles bilaterally. ABDOMEN: Soft, nontender and nondistended. Positive bowel sounds. No guarding, rebound or tenderness. [] CENTRAL NERVOUS SYSTEM: Grossly nonfocal. [] EXTREMITIES: Lower extremities with 1+ edema bilaterally. Pulses palpable in the lower extremities, both dorsalis pedis and posterior tibial. [] Urinary Catheter Management: Archer: Cath Placed During This Visit: yes Reason for Continuing Indwelling Catheter: Accurate Measurement of Urinary Output in Critically Ill Patients Urinary Catheter Date of Insertion: 06/12/22 Urinary Catheter Time of Insertion: 09:00 Data 06/15/22 03:44 06/15/22 03:44 A&P Assessment and plan (1) Non-ST elevation [place] (NSTEMI): (2) Chronic diastolic CHF (congestive heart failure): (3) Bradycardia: (4) Carotid stenosis: Qualifiers: Laterality: left Qualified Code(s): I65.22 - Occlusion and stenosis of left carotid artery (5) Hypertension: Plan Patient had chest pain symptoms today that were very severe. Since medical therapy could not resolve symptomsand EKG was showing ST elevations that are persistent from her prior [place], we proceeded with coronary angiogram. It was unchanged from before with patent LAD stents. Continue dual antiplatelet therapy Continue anticoagulation for A. fib Thank you for involving us with care of this patient. We will continue to follow. Please call with questions Attestations Medical Necessity Statement*: Care expected to cross 2 midnights Coding Level of Care Code Acute Senior Administrative Services Officer for g Fwd Diagnoses Non-ST elevation [place] (NSTEMI) I21.4 Chronic diastolic CHF (congestive heart failure) I50.32 Bradycardia R00.1 Carotid stenosis I65.22 Laterality: left Hypertension I10
[2022-06-15] MEDS: cefTRIAXone 1,000 MG in sodium chloride 0.9% (plus) 50 ML 100 MG IV (18:20)
[2022-06-15] MEDS: azithromycin 250 MG in sodium chloride 0.9% 250 ML IV (19:43)
--- NOTE | 2022-06-15 21:40 | PC.NURSE ---
2024 left groin sheath pulled, pressure held for 30 minutes; patient tolerated well 2054 dressing applied, no drainage noted; tissue around sheath site soft
[2022-06-15 21:54] LABS: Influenza A by IFA negative (Negative); Influenza B by IFA negative (Negative)
[2022-06-15] MEDS: temazepam 15 mg Capsule PO (22:27)
[2022-06-15 23:20] LABS: Adenovirus Not Detected (NOT DETECT); Chlamydia Pneumoniae Not Detected (NOT DETECT); Coronavirus 229E,HKU1,NL63,OC4 Not Detected (NOT DETECT); Human Metapneumovirus Not Detected (NOT DETECT); Human Rhinovirus/Enterovirus Not Detected (NOT DETECT); Influenza A Not Detected (NOT DETECT); Influenza A H1 Not Detected (NOT DETECT); Influenza A H1-2009 Not Detected (NOT DETECT); Influenza A H3 Not Detected (NOT DETECT); Influenza B Not Detected (NOT DETECT); Mycoplasma Pneumoniae Not Detected (NOT DETECT); Parainfluenza Virus Type 1 Not Detected (NOT DETECT); Parainfluenza Virus Type 2 Not Detected (NOT DETECT); Parainfluenza Virus Type 3 Not Detected (NOT DETECT); Parainfluenza Virus Type 4 Not Detected (NOT DETECT); Respiratory Syncytial Virus A Not Detected (NOT DETECT); Respiratory Syncytial Virus B Not Detected (NOT DETECT); SARS-COV-2 Not Detected (NOT DETECT)
[2022-06-16] VITALS (97 sets, daily range): BP systolic 78–129; BP diastolic 41–79; PULSE 82–115; RESP 13–37; TEMP 36.6–37.1; O2SAT 82–100
[2022-06-16 03:28] LABS: Basophils % 0.4 %; Eosinophils # 0.1 10^3/uL (0.0-0.8); Eosinophils % 1.1 %; Hematocrit 34.3 % (37.0-47.0); Hemoglobin 11.4 g/dL (11.5-15.3); Lymphocytes # 2.3 10^3/uL (0.8-4.8); Lymphocytes % 31.2 %; Mean Corpuscular HGB Conc 33.2 g/dL (30.0-36.0); Mean Corpuscular Hemoglobin 31.8 pg (28.0-34.0); Mean Corpuscular Volume 95.8 fl (81-99); Mean Platelet Volume 10.1 fL (7.4-10.4); Monocytes # 0.9 10^3/uL (0.2-0.9); Monocytes % 11.8 %; Neutrophils # 4.01 10^3/uL (1.8-7.7); Neutrophils % 55.1 %; Nucleated Red Blood Cells % 0 %; Platelet Count 290 10^3/cmm (130-400); Red Blood Count 3.58 10^6/uL (4.1-5.3); White Blood Count 7.3 10^3/uL (4.0-10.0)
[2022-06-16 05:10] LABS: Alanine Aminotransferase 40 U/L (0-33); Alkaline Phosphatase 84 U/L (35-105); Aspartate Amino Transferase 49 U/L (0-32); Blood Urea Nitrogen 14 mg/dL (8-23); Calcium 8.6 mg/dL (8.5-10.5); Carbon Dioxide 29 mmol/L (22-29); Chloride 99 mmol/L (98-107); Globulin 3.5 g/dL (1.3-4.6); Glucose 109 mg/dL (65-115); Osmolality Calculated 285 mOsm/kg (285-295); Sodium 137 mmol/L (136-145); Total Bilirubin 0.5 mg/dL (0.15-1.2); Total Protein 6.5 g/dL (6.6-8.7)
[2022-06-16] MEDS: pantoprazole DR 40 mg Tablet PO (08:05)
[2022-06-16] MEDS: levothyroxine 25 mcg Tablet PO (08:05)
[2022-06-16] MEDS: amiodarone 200 mg Tablet 400 MG PO ×2 (08:05→17:14)
[2022-06-16] MEDS: clopidogrel 75 mg Tablet PO (08:05)
[2022-06-16] MEDS: oxybutynin chloride XL 5 MG TABLET PO (08:05)
[2022-06-16] MEDS: aspirin 81 mg EC Tablet PO (08:05)
--- NOTE | 2022-06-16 09:08 | P.PN_ITS ---
Subjective Subjective: Patient is stable. No further chest pain episodes. US of gallbladder was not significant Vitals/I&O/Wt Last Vital Signs Temp 98.1 F 06/16/22 04:00 Pulse 110 H 06/16/22 08:00 Resp 24 H 06/16/22 08:00 BP 129/60 06/16/22 08:00 Pulse Ox 85 L 06/16/22 08:00 O2 Del Method 06/16/22 04:00 O2 Flow Rate 3 06/15/22 07:48 06/15/22 06/16/22 06/16/22 22:59 06:59 14:59 Intake Total 392.18 / 1231.972 88.505 / 1320.477 240 / 240 Output Total 350 / 1700 Balance 392.18 / -118.028 -261.495 / -379.523 240 / 240 Weight last 48 hrs Weight 173 lb 11.588 oz Weight 171 lb 1.259 oz Physical Exam Narrative: GENERAL: Patient is alert, awake and oriented x3. [] NECK: No jugular vein distension. [] HEENT: No cyanosis. No icterus. No pallor. [] HEART: Regular S1 and S2. LUNGS: Mild crackles bilaterally. ABDOMEN: Soft, nontender and nondistended. Positive bowel sounds. No guarding, rebound or tenderness. [] CENTRAL NERVOUS SYSTEM: Grossly nonfocal. [] EXTREMITIES: Lower extremities with 1+ edema bilaterally. Pulses palpable in the lower extremities, both dorsalis pedis and posterior tibial. [] Urinary Catheter Management: Archer: Cath Placed During This Visit: yes Reason for Continuing Indwelling Catheter: Accurate Measurement of Urinary Output in Critically Ill Patients Urinary Catheter Date of Insertion: 06/12/22 Urinary Catheter Time of Insertion: 09:00 Data 06/16/22 02:31 06/16/22 04:12 A&P Assessment and plan (1) Non-ST elevation [place] (NSTEMI): (2) Chronic diastolic CHF (congestive heart failure): (3) Bradycardia: (4) Carotid stenosis: Qualifiers: Laterality: left Qualified Code(s): I65.22 - Occlusion and stenosis of left carotid artery (5) Hypertension: Plan Patient had chest pain symptoms yesterday that were very severe. Since medical therapy could not resolve symptomsand EKG was showing ST elevations that were persistent from her prior [place], we proceeded with coronary angiogram. It was unchanged from before with patent LAD stents. Continue dual antiplatelet therapy Continue anticoagulation for A. fib. Can switch to oral anticoagulation IV lasix at low dose. Will titrate off levophed. Thank you for involving us with care of this patient. We will continue to follow. Please call with questions Attestations Medical Necessity Statement*: Care expected to cross 2 midnights. Coding Level of Care Code Acute Spiral Spring Winder for Adan Haro Diagnoses Non-ST elevation [place] (NSTEMI) I21.4 Chronic diastolic CHF (congestive heart failure) I50.32 Bradycardia R00.1 Carotid stenosis I65.22 Laterality: left Hypertension I10
[2022-06-16] MEDS: FUROsemide 10 mg/mL SDV 2mL 20 MG IVP (09:56)
[2022-06-16] MEDS: enoxaparin 80 mg/0.8 mL Syringe SUBCUT ×2 (10:45→23:44)
--- NOTE | 2022-06-16 11:34 | PC.CHAP ---
Pastoral Care Encounter/Spiritual Assessment Type of Contact [] Declined human resources trainer visit [] Patient/Family/Request visit [] Outpatient visit [] Follow-up visit [] Physician referral [] Code/Alert [x] Routine visit [] Staff referral [] Actively dying [] Patient sleeping [x] Family support [] [] Out of room [] Palliative care [] [] Receiving care in room [] Pre-surgical visit [] Trauma [] Long length of stay [x] ICU visit [x] Other: setting up in chair.... eating Relational/Emotional Strength [] Patient feels connected with others/family/visitors/staff [] Distress [] Loneliness/isolation [] Abandonment Spirituality of Patient [] Person of Ann [] Attends Sabianist of their Ann [] Believes in Prayer [] Reads Bible or Catholic materials [] There are Spiritual issues to be addressed Water Quality Manager Interventions [x] Prayer [] Active listening [] Non-anxious presence [] Spiritual/emotional support [] Crisis/trauma care [] Spiritual counseling [] Bereavement support [] Provided bereavement packet [] Provided Bible/devotional materials [] Provided toy/stuffed animal, coloring book to patient or family member [] Provided Communion [] Anointing/[place] [] Salvation [x] Completed spiritual assessment [] Other: Impact on Illness or Injury [] Angry [] Fearful [] Anxious [] Often cries [] Exhaustion [] Unable to work [] Unable to attend voodoo [] Unable to walk/stand [] Unable to read [] Unable to drive [] Unable to eat/drink [] Unable to sleep [] Unable to be with family [] Patient intubated [] Other: Summary Time spent with patient
--- NOTE | 2022-06-16 15:14 | PM.PN ---
Subjective Subjective: So far today she is feeling better. Last night had right lower chest pain inferolateral to her right breast, but so far it has resolved. No rash. Otherwise no worsening in pain or other complaints. We discussed with her and her daughter results of studies including chest x-ray, rib x-ray and gallbladder ultrasound. Discussed findings including empiric antibiotic treatment of possibility of pneumonia, and incidental findings of fatty liver infiltration. Vitals/I&O/Wt Last Vital Signs Temp 98.1 F 06/16/22 04:00 Pulse 107 H 06/16/22 13:00 Resp 23 H 06/16/22 13:00 BP 103/57 06/16/22 13:00 Pulse Ox 92 06/16/22 11:15 O2 Del Method 06/16/22 10:44 O2 Flow Rate 2 06/16/22 10:44 06/16/22 06/16/22 06/16/22 06:59 14:59 22:59 Intake Total 88.505 / 1320.477 480 / 480 Output Total 350 / 1700 Balance -261.495 / -379.523 480 / 480 Weight last 48 hrs Weight 78.8 kg Weight 77.6 kg Physical Exam Narrative: Accompanied by her daughter. Const: COMMON NORMALS: patient oriented x3 and alert GENERAL APPEARANCE: cooperative ORIENTATION/CONSCIOUSNESS: Yes awake HENMT: COMMON NORMALS: oropharynx normal Neck/C-Spine: COMMON NORMALS: no JVD Resp: COMMON NORMALS: normal respiratory effort and clear to auscultation bilaterally AUSCULTATION: clear to auscultation bilaterally Cardio: COMMON NORMALS: no JVD, regular rhythm, S1 normal heart sound present, S2 normal heart sound present and No murmurs present (Cardio) RHYTHM: regular rhythm HEART SOUNDS: S1 normal heart sound present and S2 normal heart sound present GI: COMMON NORMALS: Normal to inspection, nondistended, normoactive bowel sounds present, Soft to palpation and non-tender PALPATION: Yes Soft to palpation Extremity: COMMON NORMALS: no joint enlargement and no pedal edema Neuro: COMMON NORMALS: patient oriented x3 and moves all extremities SENSORIUM/ORIENTATION: Yes alert Skin: COMMON NORMALS: no rashes or lesions noted GENERAL SKIN EXAM: no rashes or lesions noted Urinary Catheter Management: Archer: Cath Placed During This Visit: yes Reason for Continuing Indwelling Catheter: Accurate Measurement of Urinary Output in Critically Ill Patients Urinary Catheter Date of Insertion: 06/12/22 Urinary Catheter Time of Insertion: 09:00 Data 06/16/22 02:31 06/16/22 04:12 A&P Assessment and plan (1) Cardiogenic shock: Weaning down on Levophed this morning down from 5 mcg/min to 2. Continue wean off as tolerating maintaining MAP 65 mmHg. In setting of recent non-ST elevation [place] post PCI. Keep mean artery pressure over 65. Continue with Levophed. Will wean off accordingly. Monitor urine output. (2) Non-ST elevation [place] (NSTEMI): Had repeat coronary angiography 06/15 after chest pain returned with concerning EKG findings after pain initially responding to nitroglycerin, morphine. Unchanged from prior. Additional assessment for other causes of chest pain as below. Patient is post PCI with RICHY x2 to LAD. Repeat cardiac angiogram showed patent stent with distalization of thrombus. Left ventricular aneurysm. Continue with aspirin, Plavix. Patient allergic to statin. Echocardiogram shows an EF of 25 to 30% with akinesia of anterior and apical wall. She stated had delayed going to the hospital as he really does not like hospitals, did not want to go until was convinced by family. Consideration of post [place] pericarditis. (3) Chest pain: Underwent additional patient with repeat coronary angiogram with similar and expected findings. Right lower chest pain sharp, additionally some reproducibility with movement, inspiration. Discussed additionally lower possibility of PE given she has been anticoagulated, also D-dimer was low, no suggestion of RV failure on TTE. In case of recurrent pain, worsening hypoxia, or other concerning changes, consider CT angiogram. Continue empiric ceftriaxone azithromycin for possible pneumonia. Discussed with her and family. Chest x-ray, noted possible atelectasis in lower lobes. Small pleural effusions. Rib for COVID-19 on PCR, and rapid influenza. Low-grade temp 100.3 Fahrenheit on 06/12. Provide empiric coverage for now also with ceftriaxone and azithromycin. Incentive spirometer. With cough, pain on inspiration. Rib series without fracture. Superficially no rash. Discussed fatty liver incidentally noted on gallbladder ultrasound. Discussed and we discussed we will subsequently follow-up with PCP. (4) Chronic episodic atrial fibrillation: A. fib with RVR, continue p.o. amiodarone. Transition Lovenox to oral anticoagulant prior to discharge. Chronic history. Takes propafenone and metoprolol at home. Currently both at hold secondary to cardiogenic shock. (5) Acute kidney injury: In setting of cardiogenic shock. Improved creatinine. Reassess renal function. Baseline creatinine 0.9-1.1. (6) Congestive heart failure: Now systolic and diastolic combined. Received Lasix dose x1. Reassess volume status. Keep strict input output charting. Daily weights. Continue with Archer catheterization. Qualifiers: Heart failure type: combined systolic and diastolic Heart failure chronicity: acute on chronic Qualified Code(s): I50.43 - Acute on chronic combined systolic (congestive) and diastolic (congestive) heart failure (7) Benign essential hypertension with target blood pressure below 140/90: Goal blood pressure less than 140/90 mmHg. Blood pressure soft. (8) Bradycardia: Resolved. Patient in RVR now. Plan Analgesia: Tylenol, morphine as needed Glycemic control: Not needed. Nutrition: Mechanical soft cardiac diet CODE STATUS: full code PUD prophylaxis: Protonix DVT prophylaxis: Full dose Lovenox will suffice this DVT prophylaxis Discharge planning: Home with home health once patient medically stable. Continue with care at ICU level Attestations Medical Necessity Statement*: Continue admission for management of cardiogenic shock following AMI. Coding Level of Care Code Acute Cook Box Filler for [facility] Fwd Diagnoses Cardiogenic shock R57.0 Non-ST elevation [place] (NSTEMI) I21.4 Chest pain R07.9 Chronic episodic atrial fibrillation I48.20 Acute kidney injury N17.9 Congestive heart failure I50.43 Heart failure type: combined systolic and diastolic Heart failure chronicity: acute on chronic Benign essential hypertension with target blood pressure below 140/90 I10 Bradycardia R00.1
--- NOTE | 2022-06-16 16:04 | US_ITS ---
WS: [id number] RIGHT UPPER QUADRANT ULTRASOUND HISTORY: R lower chest pain COMPARISON: 09/16/2011 Liver: 15.8 cm in length. Normal size liver. Mild increased echogenicity. No mass or bile duct dilata tion. Portal Vein: Normal hepatopetal flow with monophasic waveform. Gallbladder: Normally distended gallbladder with no stones or wall thickening. CBD: 0.4 cm Pancreas: Mild pancreatic atrophy. No mass. No pancreatic duct dilatation. Right kidney: 10.7 cm in length. Normal size and echogenicity. No hydronephrosis or mass. Aorta and IVC: Unremarkable abdominal aorta and IVC. No ascites. US/US gall bladder 26239 IMPRESSION: 1. Negative gallbladder. 2. Very mild increased echogenicity within the liver. Probably due to mild hep atic steatosis. No mass or bile duct dilatation.
[2022-06-16] MEDS: cefTRIAXone 1,000 MG in sodium chloride 0.9% (plus) 50 ML 100 MG IV (17:14)
[2022-06-16] MEDS: azithromycin 250 MG in sodium chloride 0.9% 250 ML IV (17:26)
--- NOTE | 2022-06-16 21:50 | PC.NURSE ---
Blood Pressure Patient blood pressure noted to be soft MAP 60, held evening dose of Metoprolol. Informed overnight cashier hospitalist, received orders to draw H & H and restart Levo if needed.
[2022-06-16 22:08] LABS: Hemoglobin 10.3 g/dL (11.5-15.3)
[2022-06-17] VITALS (87 sets, daily range): BP systolic 80–138; BP diastolic 46–106; PULSE 79–116; RESP 13–39; TEMP 36.7–36.8; O2SAT 88–98; BMI 31.1
[2022-06-17 03:45] LABS: Basophils % 0.5 %; Eosinophils # 0.1 10^3/uL (0.0-0.8); Eosinophils % 1.9 %; Hematocrit 33.1 % (37.0-47.0); Hemoglobin 10.6 g/dL (11.5-15.3); Lymphocytes # 1.9 10^3/uL (0.8-4.8); Lymphocytes % 30.2 %; Mean Corpuscular Hemoglobin 31.4 pg (28.0-34.0); Mean Corpuscular Volume 97.9 fl (81-99); Mean Platelet Volume 10.1 fL (7.4-10.4); Monocytes # 0.9 10^3/uL (0.2-0.9); Monocytes % 13.9 %; Neutrophils # 3.33 10^3/uL (1.8-7.7); Neutrophils % 52.4 %; Nucleated Red Blood Cells % 0 %; Platelet Count 247 10^3/cmm (130-400); Red Blood Count 3.38 10^6/uL (4.1-5.3); Red Cell Distribution Width 13.2 % (12.1-15.1); White Blood Count 6.4 10^3/uL (4.0-10.0)
[2022-06-17 04:05] LABS: Alanine Aminotransferase 35 U/L (0-33); Albumin Level 2.9 g/dL (3.5-5.2); Alkaline Phosphatase 74 U/L (35-105); Aspartate Amino Transferase 41 U/L (0-32); Blood Urea Nitrogen 13 mg/dL (8-23); Calcium 8.8 mg/dL (8.5-10.5); Carbon Dioxide 30 mmol/L (22-29); Chloride 98 mmol/L (98-107); Globulin 3.2 g/dL (1.3-4.6); Glucose 109 mg/dL (65-115); Osmolality Calculated 285 mOsm/kg (285-295); Sodium 137 mmol/L (136-145); Total Bilirubin 0.4 mg/dL (0.15-1.2); Total Protein 6.1 g/dL (6.6-8.7)
[2022-06-17 04:31] LABS: Anion Gap 13.1 (5-19); Potassium 4.1 mmol/L (3.5-5.1)
--- NOTE | 2022-06-17 04:59 | PC.NURSE ---
Restart Levophed Restarted Levophed due to low BP/MAP throughout shift, please see MAR for infusion rate.
--- NOTE | 2022-06-17 05:45 | PC.NURSE ---
Shift Note Frequent safety and comfort rounds continue. Orders and/or nursing care completed as indicated. Patient monitored for response to intervention and treatment(s). Education provided includes medications and treatment plan. Patient verbalized understanding of teaching. Patient remains alert/oriented x4 on 2LNC. No wounds or skin issues noted at this time. Levophed infusing per protocol please see MAR for infusion rate. Archer catheter drained 600 mls of urine overnight. No reports of pain overnight. Will continue to monitor.
[2022-06-17] MEDS: magnesium hydroxide 30 mL UDC PO (07:05)
[2022-06-17] MEDS: amiodarone 200 mg Tablet 400 MG PO ×2 (08:24→18:04)
[2022-06-17] MEDS: pantoprazole DR 40 mg Tablet PO (08:24)
[2022-06-17] MEDS: metoprolol tartrate 25 mg Tablet 12.5 MG PO ×2 (08:24→21:09)
[2022-06-17] MEDS: oxybutynin chloride XL 5 MG TABLET PO (08:24)
[2022-06-17] MEDS: aspirin 81 mg EC Tablet PO (08:24)
[2022-06-17] MEDS: clopidogrel 75 mg Tablet PO (08:24)
[2022-06-17] MEDS: levothyroxine 25 mcg Tablet PO (08:24)
--- NOTE | 2022-06-17 10:01 | P.PN_ITS ---
Subjective Subjective: Patient is stable. Denies chest pain Vitals/I&O/Wt Last Vital Signs Temp 98.0 F 06/17/22 04:30 Pulse 97 06/17/22 09:30 Resp 35 H 06/17/22 09:30 BP 100/83 06/17/22 09:30 Pulse Ox 97 06/17/22 09:30 O2 Del Method 06/17/22 04:30 O2 Flow Rate 2 06/17/22 04:30 06/16/22 06/17/22 06/17/22 22:59 06:59 14:59 Intake Total 621.534 / 1101.534 100 / 1201.534 248.954 / 248.954 Output Total 900 / 900 600 / 1500 Balance -278.466 / 201.534 -500 / -298.466 248.954 / 248.954 Weight last 48 hrs Weight 173 lb 11.588 oz Physical Exam Narrative: GENERAL: Patient is alert, awake and oriented x3. [] NECK: No jugular vein distension. [] HEENT: No cyanosis. No icterus. No pallor. [] HEART: Regular S1 and S2. LUNGS: Mild crackles bilaterally. ABDOMEN: Soft, nontender and nondistended. Positive bowel sounds. No guarding, rebound or tenderness. [] CENTRAL NERVOUS SYSTEM: Grossly nonfocal. [] EXTREMITIES: Lower extremities with 1+ edema bilaterally. Pulses palpable in the lower extremities, both dorsalis pedis and posterior tibial. [] Urinary Catheter Management: Archer: Cath Placed During This Visit: yes Reason for Continuing Indwelling Catheter: Accurate Measurement of Urinary Output in Critically Ill Patients Urinary Catheter Date of Insertion: 06/12/22 Urinary Catheter Time of Insertion: 09:00 Data 06/17/22 02:48 06/17/22 02:48 A&P Assessment and plan (1) Non-ST elevation [place] (NSTEMI): (2) Chronic diastolic CHF (congestive heart failure): (3) Bradycardia: (4) Carotid stenosis: Qualifiers: Laterality: left Qualified Code(s): I65.22 - Occlusion and stenosis of left carotid artery (5) Hypertension: Plan Patient is overall stable. Continue dual antiplatelet therapy Continue anticoagulation for A. fib. Can switch to oral anticoagulation Continue low dose lasix therapy Thank you for involving us with care of this patient. We will continue to follow. Please call with questions Attestations 2 Medical Necessity Statement*: Care expected to cross 2 midnights. Coding Level of Care Code Acute Pharmaceutical Physician for Adan Haro Diagnoses Non-ST elevation [place] (NSTEMI) I21.4 Chronic diastolic CHF (congestive heart failure) I50.32 Bradycardia R00.1 Carotid stenosis I65.22 Laterality: left Hypertension I10
--- NOTE | 2022-06-17 10:23 | PC.CHAP ---
Pastoral Care Encounter/Spiritual Assessment Type of Contact [] Declined stitcher utility visit [] Patient/Family/Request visit [] Outpatient visit [] Follow-up visit [] Physician referral [] Code/Alert [x Routine visit [] Staff referral [] Actively dying [] Patient sleeping [] Family support [] [] Out of room [] Palliative care [] [] Receiving care in room [] Pre-surgical visit [] Trauma [] Long length of stay [x] ICU visit [] Other: Relational/Emotional Strength [] Patient feels connected with others/family/visitors/staff [] Distress [] Loneliness/isolation [] Abandonment Spirituality of Patient [] Person of Ann [] Attends [facility] their Ann [] Believes in Prayer [] Reads Bible or Yazidi materials [] There are Spiritual issues to be addressed Complaint Manager Interventions x] Prayer [] Active listening [] Non-anxious presence [] Spiritual/emotional support [] Crisis/trauma care [] Spiritual counseling [] Bereavement support [] Provided bereavement packet [] Provided Bible/devotional materials [] Provided toy/stuffed animal, coloring book to patient or family member [] Provided Communion [] Anointing/[place] [] Salvation [x] Completed spiritual assessment [] Other: Impact on Illness or Injury [] Angry [] Fearful [] Anxious [] Often cries [] Exhaustion [] Unable to work [] Unable to attend latter day [] Unable to walk/stand [] Unable to read [] Unable to drive [] Unable to eat/drink [] Unable to sleep [] Unable to be with family [] Patient intubated [] Other: Summary Time spent with patient
[2022-06-17] MEDS: enoxaparin 80 mg/0.8 mL Syringe SUBCUT ×2 (11:06→22:03)
--- NOTE | 2022-06-17 15:03 | PM.PN ---
Subjective Subjective: Today she overall is feeling better. Having no chest pain and no trouble breathing. Vitals/I&O/Wt Last Vital Signs Temp 98.0 F 06/17/22 04:30 Pulse 94 06/17/22 12:30 Resp 34 H 06/17/22 12:30 BP 103/69 06/17/22 12:30 Pulse Ox 92 06/17/22 12:30 O2 Del Method 06/17/22 12:30 O2 Flow Rate 2 06/17/22 08:00 06/17/22 06/17/22 06/17/22 06:59 14:59 22:59 Intake Total 100 / 1201.534 448.954 / 448.954 Output Total 600 / 1500 Balance -500 / -298.466 448.954 / 448.954 Weight last 48 hrs Weight 79.832 kg Weight 78.8 kg Physical Exam Narrative: Accompanied by family. Const: COMMON NORMALS: patient oriented x3 and alert GENERAL APPEARANCE: cooperative ORIENTATION/CONSCIOUSNESS: Yes awake HENMT: COMMON NORMALS: oropharynx normal Neck/C-Spine: COMMON NORMALS: no JVD Resp: COMMON NORMALS: normal respiratory effort and clear to auscultation bilaterally AUSCULTATION: clear to auscultation bilaterally Cardio: COMMON NORMALS: no JVD, regular rhythm, S1 normal heart sound present, S2 normal heart sound present and No murmurs present (Cardio) RHYTHM: regular rhythm HEART SOUNDS: S1 normal heart sound present and S2 normal heart sound present GI: COMMON NORMALS: Normal to inspection, nondistended, normoactive bowel sounds present, Soft to palpation and non-tender PALPATION: Yes Soft to palpation Extremity: COMMON NORMALS: no joint enlargement and no pedal edema Neuro: COMMON NORMALS: patient oriented x3 and moves all extremities SENSORIUM/ORIENTATION: Yes alert Skin: COMMON NORMALS: no rashes or lesions noted GENERAL SKIN EXAM: no rashes or lesions noted Urinary Catheter Management: Archer: Cath Placed During This Visit: yes Reason for Continuing Indwelling Catheter: Accurate Measurement of Urinary Output in Critically Ill Patients Urinary Catheter Date of Insertion: 06/12/22 Urinary Catheter Time of Insertion: 09:00 Data 06/17/22 02:48 06/17/22 02:48 A&P Assessment and plan (1) Cardiogenic shock: Blood pressure gradually improving, wean down further and this morning weaned off Levophed. Metoprolol dose was held last night, but heart rate increased this morning, she is metoprolol 12.5 mg. So far maintaining blood pressure. Monitor, resume Levophed if needed to maintain MAP over 65 while recovering from cardiogenic shock after MT. Requested also serum cortisol, patient may have an adequate response, will assess cosyntropin stim test. In setting of recent non-ST elevation MT post PCI. Keep mean artery pressure over 65. Continue with Levophed. Will wean off accordingly. Monitor urine output. (2) Non-ST elevation [place] (NSTEMI): Status post repeat PCI with unchanged findings, patent stents. Patient is post PCI with RICHY x2 to LAD. Repeat cardiac angiogram showed patent stent with distalization of thrombus. Left ventricular aneurysm. Continue with aspirin, Plavix. Patient allergic to statin. Echocardiogram shows an EF of 25 to 30% with akinesia of anterior and apical wall. She stated had delayed going to the hospital as he really does not like hospitals, did not want to go until was convinced by family. Consideration of post MT pericarditis. (3) Chest pain: So far resolved. Underwent additional patient with repeat coronary angiogram with similar and expected findings. Right lower chest pain sharp, additionally some reproducibility with movement, inspiration. Discussed additionally lower possibility of PE given she has been anticoagulated, also D-dimer was low, no suggestion of RV failure on TTE. In case of recurrent pain, worsening hypoxia, or other concerning changes, consider CT angiogram. Continue empiric ceftriaxone azithromycin for possible pneumonia. Discussed with her and family. Chest x-ray, noted possible atelectasis in lower lobes. Small pleural effusions. Rib for COVID-19 on PCR, and rapid influenza. Low-grade temp 100.3 Fahrenheit on 06/12. Provide empiric coverage for now also with ceftriaxone and azithromycin. Incentive spirometer. With cough, pain on inspiration. Rib series without fracture, may still be in the skin strain/other connective tissue injury. Superficially no rash. Discussed fatty liver incidentally noted on gallbladder ultrasound. Discussed and we discussed we will subsequently follow-up with PCP. (4) Chronic episodic atrial fibrillation: A. fib with RVR, continue p.o. amiodarone. Low-dose metoprolol 12.5 mg daily. Transition Lovenox to oral anticoagulant prior to discharge. Chronic history. Takes propafenone and metoprolol at home. Currently both at hold secondary to cardiogenic shock. (5) Acute kidney injury: In setting of cardiogenic shock. Improved creatinine. Reassess renal function. Baseline creatinine 0.9-1.1. (6) Congestive heart failure: Now systolic and diastolic combined. Reassess volume status, Lasix as needed in case of overload. Keep strict input output charting. Daily weights. Continue with Archer catheterization. Qualifiers: Heart failure type: combined systolic and diastolic Heart failure chronicity: acute on chronic Qualified Code(s): I50.43 - Acute on chronic combined systolic (congestive) and diastolic (congestive) heart failure (7) Benign essential hypertension with target blood pressure below 140/90: Goal blood pressure less than 140/90 mmHg. Blood pressure soft. (8) Bradycardia: Resolved. Plan Analgesia: Tylenol, morphine as needed Glycemic control: Not needed. Nutrition: Mechanical soft cardiac diet CODE STATUS: full code PUD prophylaxis: Protonix DVT prophylaxis: Full dose Lovenox will suffice this DVT prophylaxis Discharge planning: Home with home health once patient medically stable. Continue with care at ICU level Attestations Medical Necessity Statement*: Continue admission for management of cardiogenic shock following MT Coding Level of Care Code Acute Supervisor Paper Machine for [facility] Fwd Diagnoses Cardiogenic shock R57.0 Non-ST elevation [place] (NSTEMI) I21.4 Chest pain R07.9 Chronic episodic atrial fibrillation I48.20 Acute kidney injury N17.9 Congestive heart failure I50.43 Heart failure type: combined systolic and diastolic Heart failure chronicity: acute on chronic Benign essential hypertension with target blood pressure below 140/90 I10 Bradycardia R00.1
[2022-06-17] MEDS: morphine 4 mg/mL SDV 1 mL 2 MG IVP ×2 (15:47→16:41)
--- NOTE | 2022-06-17 15:52 | ECG_ITS ---
[facility] Test Date: 2022-06-17 Pat Name: Ilana Lau Department: Room: ICU10 Gender: Female Service Tech: : 1945 Requested By: Ponce Hein Order Number: [id number] Reading MD: Yazan Angelo M.D. 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 [id number]
[2022-06-17] MEDS: cosyntropin 0.25 mg SDV IVP (15:56)
[2022-06-17 16:08] LABS: Cosyntropin Baseline 14.26 mcg/dL
--- NOTE | 2022-06-17 16:15 | PC.NURSE ---
Patient c/o of 10/10 pain in anterior chest radiating laterally to left shoulder blade, IVP morphine did not relieve pain, EKG showed possibly acute ID, this nurse notified Dr. Ruiz, HCP gave t.o. to administer ordered SL Nitro, HCP to review EKG and advise if further orders are indicated
[2022-06-17] MEDS: nitroglycerin 0.4 mg sublingual Tablet SUBLINGUAL ×3 (16:16→16:30)
--- NOTE | 2022-06-17 16:44 | CTR_ITS ---
PROCEDURE INFORMATION: Exam: CTA Chest With Contrast Exam date and time: 06/17/2022 5:51 PM Age: 76 years old Clinical indication: Angina and dyspnea; Additional info: R lower chest pain from, front back to the R shoulder blade. TECHNIQUE: Imaging protocol: Computed tomographic angiography of the chest with contrast. 3D rendering (Not supervised by radiologist): MIP and/or 3D reconstructed images were created by the technologist. Radiation optimization: All CT scans at this facility use at least one of these dose optimization techniques: automated exposure control; mA and/or kV adjustment per patient size (includes targeted exams where dose is matched to clinical indication); or iterative reconstruction. Contrast material: OMNIPAQUE 350; Contrast volume: 95 ml; Contrast route: INTRAVENOUS (IV); COMPARISON: CT chest wo [facility] [id number] 06/27/2021 8:49 AM RADIATION DOSE METRICS: Total DLP (mGy-cm): 847.83 FINDINGS: Pulmonary arteries: Normal. No pulmonary emboli. Aorta: No aortic aneurysm. No aortic dissection. Lungs: Atelectasis of the posterior lung bases. No masses. Pleural spaces: Small volume bilateral pleural effusions. No pneumothorax. Heart: Coronary artery calcifications noted. Mild cardiomegaly. No pericardial effusion. Lymph nodes: No enlarged lymph nodes. Bones/joints: No acute fracture. Soft tissues: Unremarkable. CT/CT angio chest [id number] IMPRESSION: 1. Negative for pulmonary embolism or aortic dissection. 2. Mild cardiomegaly, with small volume bilateral pleural effusions, and atelectasis of the posterior lung bases.
[2022-06-17] MEDS: azithromycin 250 MG in sodium chloride 0.9% 250 ML IV (18:04)
[2022-06-17] MEDS: iohexol 350 mg/mL 500 mL Btl (per mL) IV (18:05)
[2022-06-17] MEDS: cefTRIAXone 1,000 MG in sodium chloride 0.9% (plus) 50 ML 100 MG IV (18:07)
--- NOTE | 2022-06-17 19:43 | PC.NURSE ---
At 1548 patient reported 10/[address] noted on monitor. [address] Ruiz contacted. See MAR for medication administrations. Dr Hein at bedside gave verbal orders for morphine IVP, See MAR for administration, also orders for CTA. See report.
[2022-06-17 20:02] LABS: Cosyntropin 1 Hour 32.32 mcg/dL
[2022-06-18] VITALS (59 sets, daily range): BP systolic 89–132; BP diastolic 40–85; PULSE 78–115; RESP 13–44; TEMP 36.7–37.3; O2SAT 82–98
[2022-06-18 03:26] LABS: Basophils % 0.5 %; Eosinophils # 0.1 10^3/uL (0.0-0.8); Eosinophils % 0.6 %; Hematocrit 33.3 % (37.0-47.0); Hemoglobin 10.5 g/dL (11.5-15.3); Lymphocytes # 2.5 10^3/uL (0.8-4.8); Lymphocytes % 31.2 %; Mean Corpuscular HGB Conc 31.5 g/dL (30.0-36.0); Mean Corpuscular Hemoglobin 31.5 pg (28.0-34.0); Mean Platelet Volume 9.9 fL (7.4-10.4); Monocytes # 0.8 10^3/uL (0.2-0.9); Monocytes % 10.7 %; Nucleated Red Blood Cells % 0 %; Platelet Count 276 10^3/cmm (130-400); Red Blood Count 3.33 10^6/uL (4.1-5.3); Red Cell Distribution Width 13.4 % (12.1-15.1); White Blood Count 7.9 10^3/uL (4.0-10.0)
[2022-06-18 03:53] LABS: Alanine Aminotransferase 32 U/L (0-33); Albumin Level 2.8 g/dL (3.5-5.2); Alkaline Phosphatase 71 U/L (35-105); Anion Gap 14.3 (5-19); Aspartate Amino Transferase 28 U/L (0-32); Blood Urea Nitrogen 12 mg/dL (8-23); Calcium 8.6 mg/dL (8.5-10.5); Carbon Dioxide 27 mmol/L (22-29); Chloride 99 mmol/L (98-107); Globulin 3.2 g/dL (1.3-4.6); Glucose 114 mg/dL (65-115); Osmolality Calculated 283 mOsm/kg (285-295); Potassium 4.3 mmol/L (3.5-5.1); Sodium 136 mmol/L (136-145); Total Bilirubin 0.3 mg/dL (0.15-1.2)
[2022-06-18] MEDS: magnesium hydroxide 30 mL UDC PO (07:18)
[2022-06-18] MEDS: amiodarone 200 mg Tablet 400 MG PO ×2 (08:27→17:34)
[2022-06-18] MEDS: pantoprazole DR 40 mg Tablet PO (08:27)
[2022-06-18] MEDS: aspirin 81 mg EC Tablet PO (08:27)
[2022-06-18] MEDS: metoprolol tartrate 25 mg Tablet 12.5 MG PO ×2 (08:27→21:14)
[2022-06-18] MEDS: clopidogrel 75 mg Tablet PO (08:28)
[2022-06-18] MEDS: levothyroxine 25 mcg Tablet PO (08:28)
[2022-06-18] MEDS: oxybutynin chloride XL 5 MG TABLET PO (08:28)
--- NOTE | 2022-06-18 10:47 | PM.PN ---
Subjective Subjective: Today she overall feels better. Denies chest pain currently. No shortness of breath. Weaning off oxygen. Discussed with her and her daughter results of CT angiogram. Encouraged use of I-S. She is eagerly working with physical therapy. Vitals/I&O/Wt Last Vital Signs Temp 98.0 F 06/18/22 04:45 Pulse 103 H 06/18/22 09:00 Resp 25 H 06/18/22 09:00 BP 95/69 06/18/22 09:00 Pulse Ox 96 06/18/22 09:00 O2 Del Method 06/18/22 09:00 O2 Flow Rate 2 06/18/22 07:54 06/17/22 06/18/22 06/18/22 22:59 06:59 14:59 Intake Total 540 / 988.954 440 / 440 Output Total 500 / 500 350 / 850 Balance 40 / 488.954 -350 / 138.954 440 / 440 Weight last 48 hrs Weight 79.832 kg Weight 79.832 kg Physical Exam Narrative: Accompanied by family. Const: COMMON NORMALS: patient oriented x3 and alert GENERAL APPEARANCE: cooperative ORIENTATION/CONSCIOUSNESS: Yes awake HENMT: COMMON NORMALS: oropharynx normal Neck/C-Spine: COMMON NORMALS: no JVD Resp: COMMON NORMALS: normal respiratory effort and clear to auscultation bilaterally AUSCULTATION: clear to auscultation bilaterally Cardio: COMMON NORMALS: no JVD, regular rhythm, S1 normal heart sound present, S2 normal heart sound present and No murmurs present (Cardio) RHYTHM: regular rhythm HEART SOUNDS: S1 normal heart sound present and S2 normal heart sound present GI: COMMON NORMALS: Normal to inspection, nondistended, normoactive bowel sounds present, Soft to palpation and non-tender PALPATION: Yes Soft to palpation Extremity: COMMON NORMALS: no joint enlargement and no pedal edema Neuro: COMMON NORMALS: patient oriented x3 and moves all extremities SENSORIUM/ORIENTATION: Yes alert Skin: COMMON NORMALS: no rashes or lesions noted GENERAL SKIN EXAM: no rashes or lesions noted Urinary Catheter Management: Archer: Cath Placed During This Visit: yes Reason for Continuing Indwelling Catheter: Accurate Measurement of Urinary Output in Critically Ill Patients Urinary Catheter Date of Insertion: 06/12/22 Urinary Catheter Time of Insertion: 09:00 Data 06/18/22 03:00 06/18/22 03:00 A&P Assessment and plan (1) Cardiogenic shock: Briefly required Levophed support overnight, currently weaned off. Blood pressure 95/69. He sitting up in chair, tolerating working with therapy. Will monitor blood pressure for now but appears to be gradually weaning off pressor dependence. Continue to wean off pressor as tolerated. If maintaining blood pressure without pressor, otherwise continue to improve, possible discharge home tomorrow. Adequate cortisol response. In setting of recent non-ST elevation [place] post PCI. Keep mean artery pressure over 65. Monitor urine output. (2) Non-ST elevation [place] (NSTEMI): Status post repeat PCI with unchanged findings, patent stents. Patient is post PCI with RICHY x2 to LAD. Repeat cardiac angiogram showed patent stent with distalization of thrombus. Left ventricular aneurysm. Will benefit from cardiac rehabilitation. Continue with Plavix. Transition to Eliquis and aspirin is being stopped. Patient allergic to statin. Echocardiogram shows an EF of 25 to 30% with akinesia of anterior and apical wall. She stated had delayed going to the hospital as he really does not like hospitals, did not want to go until was convinced by family. Consideration of post [place] pericarditis. (3) Chest pain: So far resolved. Discussed results of CTA, mild cardiomegaly, atelectasis. Encouraged use of I-S. She is mobilizing. Underwent additional patient with repeat coronary angiogram with similar and expected findings. Right lower chest pain sharp, additionally some reproducibility with movement, inspiration. Discussed additionally lower possibility of PE given she has been anticoagulated, also D-dimer was low, no suggestion of RV failure on TTE. In case of recurrent pain, worsening hypoxia, or other concerning changes, consider CT angiogram. Continue empiric ceftriaxone azithromycin for possible pneumonia. Discussed with her and family. Chest x-ray, noted possible atelectasis in lower lobes. Small pleural effusions. Rib for COVID-19 on PCR, and rapid influenza. Low-grade temp 100.3 Fahrenheit on 06/12. Provide empiric coverage for now also with ceftriaxone and azithromycin. Incentive spirometer. With cough, pain on inspiration. Rib series without fracture, may still be in the skin strain/other connective tissue injury. Superficially no rash. Discussed fatty liver incidentally noted on gallbladder ultrasound. Discussed and we discussed we will subsequently follow-up with PCP. (4) Chronic episodic atrial fibrillation: A. fib with RVR, continue p.o. amiodarone. Low-dose metoprolol 12.5 mg daily. Is being switched from Lovenox to oral anticoagulant. Chronic history. Takes propafenone and metoprolol at home. Currently both at hold secondary to cardiogenic shock. (5) Acute kidney injury: Resolved. In setting of cardiogenic shock. Improved creatinine. Reassess renal function. Baseline creatinine 0.9-1.1. (6) Congestive heart failure: Now systolic and diastolic combined. Reassess volume status, Lasix as needed in case of overload. Keep strict input output charting. Daily weights. Continue with Archer catheterization. Qualifiers: Heart failure chronicity: acute on chronic Heart failure type: combined systolic and diastolic Qualified Code(s): I50.43 - Acute on chronic combined systolic (congestive) and diastolic (congestive) heart failure (7) Benign essential hypertension with target blood pressure below 140/90: Goal blood pressure less than 140/90 mmHg. Blood pressure soft. (8) Bradycardia: Resolved. Plan Analgesia: Tylenol, morphine as needed Glycemic control: Not needed. Nutrition: Mechanical soft cardiac diet CODE STATUS: full code PUD prophylaxis: Protonix DVT prophylaxis: Full dose Lovenox will suffice this DVT prophylaxis Discharge planning: Home with home health possibly tomorrow. Cardiac rehab. Continue with care at ICU level Attestations Medical Necessity Statement*: Continue admission for management for cardiogenic shock following NSTEMI, ischemic adenopathy, LV aneurysm, preparations for discharge. Coding Level of Care Code Acute Presser Automatic for [facility] Fwd Exam Comprehensive Diagnoses Cardiogenic shock R57.0 Non-ST elevation [place] (NSTEMI) I21.4 Chest pain R07.9 Chronic episodic atrial fibrillation I48.20 Acute kidney injury N17.9 Congestive heart failure I50.43 Heart failure chronicity: acute on chronic Heart failure type: combined systolic and diastolic Benign essential hypertension with target blood pressure below 140/90 I10 Bradycardia R00.1
--- NOTE | 2022-06-18 11:46 | PM.PN ---
Subjective Subjective: Patient is doing well. no complaints of chest pain. Vitals/I&O/Wt Last Vital Signs Temp 98.0 F 06/18/22 04:45 Pulse 103 H 06/18/22 09:00 Resp 25 H 06/18/22 09:00 BP 95/69 06/18/22 09:00 Pulse Ox 96 06/18/22 09:00 O2 Del Method 06/18/22 09:00 O2 Flow Rate 2 06/18/22 07:54 06/17/22 06/18/22 06/18/22 22:59 06:59 14:59 Intake Total 540 / 988.954 440 / 440 Output Total 500 / 500 350 / 850 Balance 40 / 488.954 -350 / 138.954 440 / 440 Weight last 48 hrs Weight 176 lb Weight 176 lb Physical Exam Narrative: GENERAL: Patient is alert, awake and oriented x3. [] NECK: No jugular vein distension. [] HEENT: No cyanosis. No icterus. No pallor. [] HEART: Regular S1 and S2. LUNGS: Diminished breath sounds ABDOMEN: Soft, nontender and nondistended. Positive bowel sounds. No guarding, rebound or tenderness. [] CENTRAL NERVOUS SYSTEM: Grossly nonfocal. [] EXTREMITIES: Lower extremities with 1+ edema bilaterally. Pulses palpable in the lower extremities, both dorsalis pedis and posterior tibial. [] Urinary Catheter Management: Archer: Cath Placed During This Visit: yes Reason for Continuing Indwelling Catheter: Accurate Measurement of Urinary Output in Critically Ill Patients Urinary Catheter Date of Insertion: 06/12/22 Urinary Catheter Time of Insertion: 09:00 Data 06/18/22 03:00 06/18/22 03:00 A&P Assessment and plan (1) Non-ST elevation [place] (NSTEMI): (2) Chronic diastolic CHF (congestive heart failure): (3) Bradycardia: (4) Carotid stenosis: Qualifiers: Laterality: left Qualified Code(s): I65.22 - Occlusion and stenosis of left carotid artery (5) Hypertension: Plan Patient is overall stable. Continue dual antiplatelet therapy Lovenox stopped. Patient switched to Eliquis. Off of levophed. Continue metoprolol low dose Continue low dose lasix therapy Thank you for involving us with care of this patient. We will continue to follow. Please call with questions Attestations Medical Necessity Statement*: Care expected to cross 2 midnights. Coding Level of Care Code Acute Fagot Heater for [facility]g Fwd Diagnoses Non-ST elevation [place] (NSTEMI) I21.4 Chronic diastolic CHF (congestive heart failure) I50.32 Bradycardia R00.1 Carotid stenosis I65.22 Laterality: left Hypertension I10
[2022-06-18] MEDS: polyethylene glycol 3350 Pkt 17 gm PO ×2 (12:05→17:34)
[2022-06-18] MEDS: cefTRIAXone 1,000 MG in sodium chloride 0.9% (plus) 50 ML 100 MG IV (17:34)
[2022-06-18] MEDS: azithromycin 250 MG in sodium chloride 0.9% 250 ML IV (18:31)
[2022-06-18] MEDS: apixaban 5 mg Tablet PO (20:16)
[2022-06-18] MEDS: phenyleph-mineral oil-petrolat Oint 28 gm 1 APPLIC TOPICAL (20:50)
[2022-06-19] VITALS (31 sets, daily range): BP systolic 86–125; BP diastolic 60–94; PULSE 89–118; RESP 15–34; TEMP 36.7–36.8; O2SAT 88–98
--- NOTE | 2022-06-19 00:50 | PC.NURSE ---
Urinary Output Patient's galloway catheter removed at about 1930. At 2300, patient unable to void, she states I can feel my bladder sloshing around and can feel it at the door, but I can't go to the bathroom. Attempts made to void on bedside commode with water running multiple times with no success. Bladder scan revealed [address] Burgess contacted and order received to recheck in one hour. At 0000, patient still unable to urinate; bladder scan revealed [address] Burgess notified and order received to perform a straight cath. Straight cath performed, 275 ml urine output received.
[2022-06-19 04:29] LABS: Anion Gap 14.1 (5-19); Blood Urea Nitrogen 12 mg/dL (8-23); Calcium 8.8 mg/dL (8.5-10.5); Carbon Dioxide 28 mmol/L (22-29); Chloride 99 mmol/L (98-107); Glucose 127 mg/dL (65-115); Osmolality Calculated 285 mOsm/kg (285-295); Potassium 4.1 mmol/L (3.5-5.1); Sodium 137 mmol/L (136-145)
--- NOTE | 2022-06-19 05:00 | PC.NURSE ---
Galloway Catheter At 0415, patient still unable to void despite attempts on bedside commode. Patient states she can feel it in my bladder, but I just can't go. Bladder scan reveals 500 ml of urine remaining. Dr. Burgess contacted and order received to place a galloway catheter. Galloway inserted in one attempt, patient tolerated well, 300 ml immediately returned into collection bag.
[2022-06-19] MEDS: oxybutynin chloride XL 5 MG TABLET PO (08:03)
[2022-06-19] MEDS: polyethylene glycol 3350 Pkt 17 gm PO (08:03)
[2022-06-19] MEDS: levothyroxine 25 mcg Tablet PO (08:03)
[2022-06-19] MEDS: pantoprazole DR 40 mg Tablet PO (08:03)
[2022-06-19] MEDS: clopidogrel 75 mg Tablet PO (08:03)
[2022-06-19] MEDS: magnesium hydroxide 30 mL UDC PO (08:03)
[2022-06-19] MEDS: amiodarone 200 mg Tablet 400 MG PO (08:03)
[2022-06-19] MEDS: apixaban 5 mg Tablet PO (08:06)
[2022-06-19] MEDS: metoprolol tartrate 25 mg Tablet 12.5 MG PO (08:06)
--- NOTE | 2022-06-19 08:56 | P.PN_ITS ---
Subjective Subjective: Patient is doing well. No chest pain Vitals/I&O/Wt Last Vital Signs Temp 98.1 F 06/19/22 04:00 Pulse 101 H 06/19/22 08:00 Resp 29 H 06/19/22 08:00 BP 110/77 06/19/22 08:00 Pulse Ox 96 06/19/22 08:00 O2 Del Method 06/19/22 06:00 O2 Flow Rate 2 06/19/22 06:00 06/18/22 06/19/22 06/19/22 22:59 06:59 14:59 Intake Total 540 / 1420 430 / 1850 250 / 250 Output Total 400 / 400 825 / 1225 Balance 140 / 1020 -395 / 625 250 / 250 Weight last 48 hrs Weight 176 lb Weight 176 lb Physical Exam Narrative: GENERAL: Patient is alert, awake and oriented x3. [] NECK: No jugular vein distension. [] HEENT: No cyanosis. No icterus. No pallor. [] HEART: Regular S1 and S2. LUNGS: Diminished breath sounds ABDOMEN: Soft, nontender and nondistended. Positive bowel sounds. No guarding, rebound or tenderness. [] CENTRAL NERVOUS SYSTEM: Grossly nonfocal. [] EXTREMITIES: Lower extremities with 1+ edema bilaterally. Pulses palpable in the lower extremities, both dorsalis pedis and posterior tibial. [] Urinary Catheter Management: Archer: Cath Placed During This Visit: yes Reason for Continuing Indwelling Catheter: Accurate Measurement of Urinary Output in Critically Ill Patients Urinary Catheter Date of Insertion: 06/12/22 Urinary Catheter Time of Insertion: 09:00 Data 06/18/22 03:00 06/19/22 03:45 A&P Assessment and plan (1) Non-ST elevation [place] (NSTEMI): (2) Chronic diastolic CHF (congestive heart failure): (3) Bradycardia: (4) Carotid stenosis: Qualifiers: Laterality: left Qualified Code(s): I65.22 - Occlusion and stenosis of left carotid artery (5) Hypertension: Plan Patient is doing well. Stable to be discharged from cardiology standpoint. Continue current medications including eliquis and plavix Thank you for involving us with care of this patient. Please call with questions Attestations Medical Necessity Statement*: Care expected to cross 2 midnights. Coding Level of Care Code Acute Funeral Limousine Driver for g Fwd Diagnoses Non-ST elevation [place] (NSTEMI) I21.4 Chronic diastolic CHF (congestive heart failure) I50.32 Bradycardia R00.1 Carotid stenosis I65.22 Laterality: left Hypertension I10
--- NOTE | 2022-06-19 14:50 | PC.NURSE ---
has had a large bm today rectal prolapse less at this time .. instructions given to daughter and family
--- NOTE | 2022-06-19 15:57 | P.DS_ITS ---
Discharge Providers Date of Admission: 06/11/22 04:03 Date of Discharge: June 19, 2022 Attending Provider at Admission: Bridget Hicks MD Attending Provider at Discharge: Ponce Hein Primary Care Provider: Lisa Nunn DO Diagnoses at Discharge Discharge Diagnosis (1) Non-ST elevation CO (NSTEMI): Status: Acute (2) Chronic diastolic CHF (congestive heart failure): Status: Deleted (3) Bradycardia: Status: Acute (4) Carotid stenosis: Status: Acute Qualifiers: Laterality: left Qualified Code(s): I65.22 - Occlusion and stenosis of left carotid artery (5) Hypertension: Status: Acute Reason for Visit Reason for Visit: CP Hospital Course Hospital Course Pleasant 76-year-old lady with history of HFpEF, atrial fibrillation on Eliquis, carotid stenosis, HTN, rectocele, cystocele, was admitted presenting with chest pain mid chest, worse with deep inspiration, palpitations, initially bradycardia with first-degree AV block, with severe elevated troponin on presentation. She reported that she did not want to come to the hospital and had battled her symptoms for a while at home until convinced by family to seek help. She underwent cardiology evaluation due to NSTEMI after initiation of medical treatment. Propafenone and metoprolol were initially on hold due to bradycardia. Echocardiogram with noted new reduction in ejection fraction down to 39%, with severe diffuse hypokinesia of LV apex suggest apical ballooning. Mildly increased LA size. Normal RV size and ejection fraction. No pericardial effusion. No intracardiac masses. New features of Takotsubo syndrome compared to prior. Coronary angiogram revealed subtotal occlusion mid diffusely diseased LAD for which she underwent PCI and stenting with RICHY x2. Postprocedure patient complained of chest discomfort again and had ST elevation transiently in anterior and anterolateral leads. Repeat angiogram demonstrated patent stents however there was embolization of thrombus to apical LAD. Patient was started on Aggrastat drip and was put on nitro drip. Subsequently also hypotensive requiring Levophed drip. Continued with antiplatelet medications, anticoagulation. Pressor for cardiogenic shock. Treated with amiodarone drip for A. fib with RVR. Propafenone given recent CO. Transiently went into acute kidney injury, likely prerenal following hypotension which had resolved with s upport of blood pressure. With noted mild leukocytosis, with respiratory symptoms, hypoxia, episode of low-grade fever 100.3, empirically treated with ceftriaxone azithromycin for possible pneumonia. COVID-19 PCR, rapid flu negative. Oxygenation gradually improved. Received several as needed diuretic doses for fluid overload with acute HFrEF. Following additional episode of severe chest pain dementia responsive to medical therapy with return of severe chest pain, right lower chest, under the breast, radiating to her shoulder blade, with again noted ST elevation abnormalities on EKG underwent additional assessment by coronary angiography which again demonstrated patent stents and unchanged findings in distal LAD. With coronary territory excluded, with additional episode underwent assessment also by CT angiogram of the chest which showed no PE or aortic dissection. Mild cardiomegaly with small volume bilateral pleural effusions and atelectasis of the posterior lung cyst. Gallbladder ultrasound obtained which was unremarkable, with mild increase echogenicity within the liver probably due to mild hepatic steatosis noted incidentally. Symptoms were responding to morphine. Consideration given to PostMI pericarditis, although pain was not constant. With cough, reproducible on palpation, consideration also of musculoskeletal chest wall pain. No rib fracture noted on rib series. Pain episodes have so far resolved. Continue to gradually wean off pressor support. Cortisol response was appropriate. Eventually weaned off pressor, maintain blood pressure well. Mobilizing with therapy. She continued therapy after discharge and discussed with case management also regarding cardiac rehabilitation. She was transitioned over to amiodarone by mouth, continues on metoprolol 12.5 mg twice daily. After additional 2 days of amiodarone 400 mg twice daily she will transition to 20 mg twice daily. Continue follow-up regarding any amiodarone associated organ injury, follow-up lungs, liver, eyes, thyroid. She additionally continues on Plavix and Eliquis, aspirin was stopped. Lasix as needed for fluid overload. She was set up with a LifeVest. Follow-up with cardiology for reassessment. Night prior to admission after removal of Archer catheter noted with urinary tension and Archer catheter to be replaced. Patient urine culture without any suggestion of infection. Retention suspected secondary to oxybutynin, possibly secondary to constipation as well. Has moved her bowels. Oxybutynin for now is discontinued. Weakness poor with Archer and leg bag, asked to follow-up for voiding trial to remove Archer. Continue follow-up regarding rectal prolapse, cystocele. Avoid constipation. Had constipation while in the hospital but had bowel movement after escalation of bowel regimen. Please follow-up regarding hepatic steatosis. Physical Exam Narrative: Daughter at bedside. Const: COMMON NORMALS: patient oriented x3 and alert GENERAL APPEARANCE: cooperative ORIENTATION/CONSCIOUSNESS: Yes awake HENMT: COMMON NORMALS: oropharynx normal Neck/C-Spine: COMMON NORMALS: no JVD Resp: COMMON NORMALS: normal respiratory effort and clear to auscultation bilaterally AUSCULTATION: clear to auscultation bilaterally Cardio: COMMON NORMALS: no JVD, regular rhythm, S1 normal heart sound present, S2 normal heart sound present and No murmurs present (Cardio) RHYTHM: regular rhythm HEART SOUNDS: S1 normal heart sound present and S2 normal heart sound present GI: COMMON NORMALS: Normal to inspection, nondistended, normoactive bowel sounds present, Soft to palpation and non-tender PALPATION: Yes Soft to palpation Extremity: COMMON NORMALS: no joint enlargement and no pedal edema Neuro: COMMON NORMALS: patient oriented x3 and moves all extremities SENSORIUM/ORIENTATION: Yes alert Skin: COMMON NORMALS: no rashes or lesions noted GENERAL SKIN EXAM: no rashes or lesions noted Urinary Catheter Management: Archer: Cath Placed During This Visit: yes Reason for Continuing Indwelling Catheter: Accurate Measurement of Urinary Output in Critically Ill Patients Urinary Catheter Date of Insertion: 06/12/22 Urinary Catheter Time of Insertion: 09:00 Discharge Data Studies Completed and Pending Completed Studies During Hospitalization Category Date Time Status CTA chest [CT angio chest 92733] Stat Cat Scan 06/17/22 16:44 Completed CXRP [XR chest 1V portable [id number]] Stat Exams 06/15/22 16:06 Completed XR chest 1V portable [id number] Stat Exams 06/11/22 02:50 Completed XR chest 1V portable [id number] Stat Exams 06/12/22 09:13 Completed XR chest 1V portable [id number] Stat Exams 06/12/22 20:04 Completed XR ribs RT 2V* [id number] Routine Exams 06/15/22 17:54 Completed CV. echo limited [id number] Routine Ultrasound 06/11/22 04:49 Completed CV. echo limited [id number] Stat Ultrasound 06/12/22 20:03 Completed US gall bladder [id number] Routine Ultrasound 06/16/22 16:04 Completed Pending at discharge Category Date Time Status SENIOR SYSTEMS ENGINEER request for service Routine Exams 06/12/22 05:00 Taken SENIOR SYSTEMS ENGINEER request for service Routine Exams 06/15/22 16:35 Taken SENIOR SYSTEMS ENGINEER request for service Stat Exams 06/12/22 09:54 Taken Radiology Impressions Chest X-Ray 06/15/22 16:06 IMPRESSION: Mild cardiomegaly, with small volume pleural effusions, and ill-defined opacities at the lung bases likely reflecting corresponding atelectasis. Ribs X-Ray 06/15/22 17:54 IMPRESSION: No acute findings. Gallbladder Ultrasound 06/16/22 16:04 IMPRESSION: 1. Negative gallbladder. 2. Very mild increased echogenicity within the liver. Probably due to mild hepatic steatosis. No mass or bile duct dilatation. Chest CTA 06/17/22 16:44 IMPRESSION: 1. Negative for pulmonary embolism or aortic dissection. 2. Mild cardiomegaly, with small volume bilateral pleural effusions, and atelectasis of the posterior lung bases. Laboratory Results WBC 7.9 10^3/uL (4.0-10.0) 06/18/22 03:00 RBC 3.33 10^6/uL (4.1-5.3) L 06/18/22 03:00 Hgb 10.5 g/dL (11.5-15.3) L 06/18/22 03:00 Hct 33.3 % (37.0-47.0) L 06/18/22 03:00 MCV 100.0 fl (81-99) H 06/18/22 03:00 MCH 31.5 pg (28.0-34.0) 06/18/22 03:00 MCHC 31.5 g/dL (30.0-36.0) 06/18/22 03:00 RDW 13.4 % (12.1-15.1) 06/18/22 03:00 Plt Count 276 10^3/cmm (130-400) 06/18/22 03:00 MPV 9.9 fL (7.4-10.4) 06/18/22 03:00 Neut % (Auto) 56.0 % 06/18/22 03:00 Lymph % (Auto) 31.2 % 06/18/22 03:00 [place] % (Auto) 10.7 % 06/18/22 03:00 Eos % (Auto) 0.6 % 06/18/22 03:00 Baso % (Auto) 0.5 % 06/18/22 03:00 Neut # (Auto) 4.40 10^3/uL (1.8-7.7) 06/18/22 03:00 Lymph # (Auto) 2.5 10^3/uL (0.8-4.8) 06/18/22 03:00 [place] # (Auto) 0.8 10^3/uL (0.2-0.9) 06/18/22 03:00 Eos # (Auto) 0.1 10^3/uL (0.0-0.8) 06/18/22 03:00 Baso # (Auto) 0.0 10^3/uL (0.0-0.1) 06/18/22 03:00 Nucleated RBC % (auto) 0 % 06/18/22 03:00 Nucleated RBCs # 0.0 /100WBC 06/18/22 03:00 APTT 32.0 SECONDS (23.9-36.7) 06/12/22 16:21 D-Dimer 0.36 ug/mIFEU (0-0.59) 06/11/22 02:50 Sodium 137 mmol/L (136-145) 06/19/22 03:45 Potassium 4.1 mmol/L (3.5-5.1) 06/19/22 03:45 Chloride 99 mmol/L (98-107) 06/19/22 03:45 Carbon Dioxide 28 mmol/L (22-29) 06/19/22 03:45 Anion Gap 14.1 (5-19) 06/19/22 03:45 BUN 12 mg/dL (8-23) 06/19/22 03:45 Creatinine 0.7 mg/dL (0.5-0.9) 06/19/22 03:45 GFR Calculation Not Reportable 06/19/22 03:45 Glucose 127 mg/dL (65-115) H 06/19/22 03:45 Estimat Average Glucose 100 06/12/22 04:35 Hemoglobin A1c 5.1 % (4.0-6.0) 06/12/22 04:35 Calculated Osmolality 285 mOsm/kg (285-295) 06/19/22 03:45 Lactate 2.0 mmol/L (0.5-2.2) 06/13/22 10:26 Calcium 8.8 mg/dL (8.5-10.5) 06/19/22 03:45 Magnesium 2.0 mg/dL (1.7-2.3) 06/16/22 04:12 Iron 121 ug/dL (37-145) 06/11/22 02:50 TIBC 369 mcg/dl 06/11/22 02:50 % Saturation 32.7 % (20-50) 06/11/22 02:50 Unsat Iron Binding 248 ug/dL (112-347) 06/11/22 02:50 Total Bilirubin 0.3 mg/dL (0.15-1.2) 06/18/22 03:00 AST 28 U/L (0-32) 06/18/22 03:00 ALT 32 U/L (0-33) 06/18/22 03:00 Alkaline Phosphatase 71 U/L (35-105) 06/18/22 03:00 Troponin T Baseline 478 ng/L (0-10) H* 06/11/22 02:50 Troponin T 120 Minute 436.3 ng/L (0-10) H 06/11/22 04:44 Delta Troponin T -41.7 ABS# (0-10) L 06/11/22 04:44 Troponin T Hi Sens 6Hr 772.0 ng/L (0-10) H 06/11/22 09:38 Troponin T Hi Sens 6Hr Delta 294.0 ng/L (0-12) H* 06/11/22 09:38 Total Protein 6.0 g/dL (6.6-8.7) L 06/18/22 03:00 Albumin 2.8 g/dL (3.5-5.2) L 06/18/22 03:00 Globulin 3.2 g/dL (1.3-4.6) 06/18/22 03:00 Triglycerides 120 mg/dL (0-150) 06/12/22 04:35 Cholesterol 167 mg/dL (0-200) 06/12/22 04:35 LDL Cholesterol, Calc 96 mg/dL (50-129) 06/12/22 04:35 Total VLDL Cholesterol 24 mg/dL (0-30) 06/12/22 04:35 HDL Cholesterol 47 mg/dL (60-100) L 06/12/22 04:35 Cholesterol/HDL Ratio 3.55 mg/dL (0.0-4.40) 06/12/22 04:35 Lipase 10 U/L (13-60) L 06/11/22 02:50 Vitamin B12 404 pg/mL (232-1245) 06/11/22 02:50 Folate 19.6 ng/mL (4.8-37.3) 06/11/22 10:02 TSH 4.92 uIU/mL (0.27-4.20) H 06/11/22 02:50 Free T4 1.30 ng/dL (0.82-1.77) 06/11/22 11:15 Free T3 2.7 PG/ML (2.0-4.4) 06/11/22 11:15 Random Cortisol 13.70 ug/dL (2.47-19.5) 06/17/22 02:48 Cortisol Response 06/17/22 02:48 Urine Color Yellow (Yellow) 06/12/22 16:30 Urine Appearance Clear (CLEAR) 06/12/22 16:30 Urine pH 5 (5-7) 06/12/22 16:30 Ur Specific [place] 1.020 (1.005-1.030) 06/12/22 16:30 Urine Protein 1+ (Negative) H 06/12/22 16:30 Urine Glucose (UA) Trace (Normal) H 06/12/22 16:30 Urine Ketones Negative (Negative) 06/12/22 16:30 Urine Blood 3+ (Negative) H 06/12/22 16:30 Urine Nitrate Negative (Negative) 06/12/22 16:30 Urine Bilirubin Neg (Negative) 06/12/22 16:30 Urine Urobilinogen Neg mg/dL (Negative) 06/12/22 16:30 Ur Leukocyte Esterase Trace (Negative) H 06/12/22 16:30 Urine RBC 15-25 /hpf (0-2) H 06/12/22 16:30 Urine WBC None /hpf (0-5) 06/12/22 16:30 Ur Squamous Epith Cells 0-4 /hpf (0-5) H 06/12/22 16:30 Amorphous Sediment Not Reportable 06/12/22 16:30 Urine Bacteria None /hpf (NONE) 06/12/22 16:30 Coronavirus 229E (PCR) Not detected (NOT DETECT) 06/15/22 21:24 Influenza Type A Ag negative (Negative) 06/15/22 21:24 Influenza Type B Ag negative (Negative) 06/15/22 21:24 SARS-CoV-2 (PCR) Not detected (NOT DETECT) 06/15/22 21:24 Vitals Last Vital Signs Temp 98.1 F 06/19/22 13:44 Pulse 101 H 06/19/22 13:44 Resp 20 H 06/19/22 13:44 BP 114/70 06/19/22 13:44 Pulse Ox 98 06/19/22 09:24 O2 Del Method 06/19/22 09:24 O2 Flow Rate 2 06/19/22 06:00 Discharge Plan Discharge Patient Disposition: Home Health Service Condition: Stable Prescriptions: New Pacerone 200 mg Tablet See Rx Instructions .ROUTE .COMPLEX Qty: 180 0RF Rx Instructions: 400mg twice a day for 2 days then continue 200mg twice a day polyethylene glycol 3350 17 gram Powder In Packet 17 g PO BID Qty: 180 0RF clopidogrel 75 mg Tablet 75 mg PO DAILY Qty: 90 0RF metoprolol tartrate 25 mg Tablet 12.5 mg PO BID@0900,2100 Qty: 90 0RF cefdinir 300 mg capsule 300 mg PO BID 2 Days Qty: 4 0RF azithromycin 250 mg tablet 250 mg PO DAILY 2 Days Qty: 2 0RF Rx Instructions: start on day 2 of therapy Continued levothyroxine [Euthyrox] 25 mcg tablet 25 mcg PO QAM potassium chloride 10 mEq tablet extended release 20 meq PO DAILY Qty: 270 3RF Rx Instructions: take it with the Lasix Eliquis 5 mg tablet 5 mg PO BID@,18 Qty: 180 3RF diphenhydramine-acetaminophen [Tylenol PM Extra Strength] 25-500 mg Tablet 1 tab PO BEDTIME PRN (Reason: sleep/headache) fenofibrate 54 mg tablet 54 mg PO DAILY albuterol sulfate 90 mcg/actuation HFA aerosol inhaler 2 puff INHALATION Q6H PRN (Reason: Shortness Of Breath) Probiotic Blend 2 billion cell-50 mg Capsule 1 cap PO DAILY Rx Instructions: give with meal/snack Changed Lasix 40 mg tablet 40 mg PO DAILY PRN (Reason: Edema) Qty: 135 3RF Discontinued oxybutynin chloride 5 mg tablet extended release 24hr 5 mg PO DAILY Qty: 30 0RF metoprolol tartrate 50 mg tablet 50 mg PO BID@18 Qty: 180 3RF propafenone 150 mg tablet See Rx Instructions .ROUTE .COMPLEX Rx Instructions: Take 2 tabs in the morning, 2 tabs midday, and 1 tab in the evening Discharge Orders: Discharge Order (Routine); Ordered 06/19/22 Ordered By: Ponce Hein Referrals: [facility] [place] Home Care ([facility]) [Outside] Yazan Angelo MD [Physician] - 1 month Cuba Miranda MD [Physician] - 4-7 days (Urine retention, voiding trial Please call this clinic to schedule appointment , unable to schedule this appointment for clinic closed on Wednesday ) Manuela Street FNP [Nurse Practitioner] - 1 week (Please call with this follow up appointment , Manuela Street APN As soon as possible , after this one week follow up with ,Manuela Street will schedule appointment with ) Lisa Nunn DO [Primary Care Provider] - 4-7 days (This appointment has been scheduled : Date of :Wednesday at time of 1:00 pm Jaclyn Guardado APN) Discharge Diet: Cardiac Discharge Activity: Increase activity as tolerated and As per PT/OT instructions Patient Instructions: Metoprolol (By mouth), Amiodarone (By mouth) (Cordarone, Pacerone), Azithromycin (By mouth), Clopidogrel (By mouth) (Plavix), Cefdinir (By mouth), Polyethylene Glycol 3350 (By mouth), Heart Failure (DC), A-fib (Atrial Fibrillation) (DC), Coronary Angioplasty (DC), Constipation (GEN), Hypotension (GEN), Rectal Prolapse (GEN), CHF Stoplight, Opioid Safety, Post Heart Attack Stoplight Activity Restrictions/Additional Instructions: Continue amiodarone 400 mg twice a day for 2 more days, then switch to 200 mg twice a day. Continue metoprolol 12.5 mg twice daily. Continue Plavix and Eliquis. Do not interrupt Plavix due to risk of thrombosis. Continue Eliquis unless you experience bleeding in which case seek medical attention. Continue arrangements for assessment of rectal prolapse. Continue bowel regimen. Add fiber to diet. Avoid constipation. Continue Archer catheter in place for now, hold oxybutynin. Follow-up for voiding trial and reassessment for Archer removal. Wear LifeVest per instructions. Discharge Attestations Time Spent in Discharge Care*: greater than 30 min Quality Metrics Clinical Quality Measures [ Acute Myocardial Infaction { Clinical Trial Participant: No; Contraindication to aspirin: Treatment changed; Contraindication to statin: Drug allergy; Contraindication to PCI: None; PCI performed;}. No reported AMI, CVA or VTE this stay] Coding Level of Care Code Acute [facility] note Diagnoses Non-ST elevation CO (NSTEMI) I21.4 Chronic diastolic CHF (congestive heart failure) I50.32 Bradycardia R00.1 Carotid stenosis I65.22 Laterality: left Hypertension I10
== END 2022-06-19 14:54 | disposition home health service (06) | DRG 246 ==
LOC: ER 03:59 → CSU 04:04 → ICU 06-12 19:35
PROVIDERS: Internal Medicine; Student in an Organized Health Care Education/Training Program; Admitting Provider Student in an Organized Health Care Education/Training Program; Emergency Provider Emergency Medicine; PCP Family Medicine; Visit Provider Internal Medicine
PROC: 027035Z Dilation of Coronary Artery, One Artery with Two Drug-eluting Intraluminal Devices, Percutaneous Approach (ICD-10-PCS; principal; 2022-06-12 05:00)
PROC: 027035Z Dilation of Coronary Artery, One Artery with Two Drug-eluting Intraluminal Devices, Percutaneous Approach (ICD-10-PCS; 2022-06-12 05:00)
PROC: 4A023N7 Measurement of Cardiac Sampling and Pressure, Left Heart, Percutaneous Approach (ICD-10-PCS; principal; 2022-06-15 16:30)
DX: I21.4 Non-ST elevation (NSTEMI) myocardial infarction (principal); I50.21 Acute systolic (congestive) heart failure; R57.0 Cardiogenic shock; I48.20 Chronic atrial fibrillation, unspecified; I50.32 Chronic diastolic (congestive) heart failure; I25.3 Aneurysm of heart; N17.9 Acute kidney failure, unspecified; I65.22 Occlusion and stenosis of left carotid artery; I11.0 Hypertensive heart disease with heart failure; I44.0 Atrioventricular block, first degree; E89.0 Postprocedural hypothyroidism; Z87.891 Personal history of nicotine dependence; I25.10 Atherosclerotic heart disease of native coronary artery without angina pectoris; Z79.01 Long term (current) use of anticoagulants; K59.00 Constipation, unspecified; N81.6 Rectocele; K62.3 Rectal prolapse; N81.10 Cystocele, unspecified; I25.5 Ischemic cardiomyopathy; K76.0 Fatty (change of) liver, not elsewhere classified; I95.9 Hypotension, unspecified; R07.9 Chest pain, unspecified
CPT/HCPCS: 36415; 51702; 71045; 71100; 71275; 76705; 80048; 80053; 80061; 81001; 82533; 82607; 82746; 83036; 83540; 83550; 83605; 83690; 83735; 84439; 84443; 84481; 84484; 85014; 85018; 85025; 85347; 85378; 85730; 87086; 87635; 87641; 87804; 93005; 93308; 93454; 93458; 96365; 96367; 96372; 97110; 97116; 97163; 97530; 99152; 99153; C1725; C1760; C1769; C1874; C1887; C1894; C9600; G0269; J0282; J0360; J0456; J0696; J0834; J1160; J1644; J1650; J1940; J2250; J2270; J2405; J3010; J3490; J7030; J7050; J7060; Q9967

== ENCOUNTER → 2022-06-30 14:53 | Outpatient (BNVA) | payer MEDICARE, MEDICAID, SELFPAY | PROVIDERS: PCP Family Medicine; Visit Provider Nurse Practitioner Family | DX: I25.5 Ischemic cardiomyopathy (principal); I48.20 Chronic atrial fibrillation, unspecified; Z79.01 Long term (current) use of anticoagulants; Z87.891 Personal history of nicotine dependence; I25.2 Old myocardial infarction; I10 Essential (primary) hypertension | CPT/HCPCS: 93005; 99214 ==

== ENCOUNTER → 2022-07-08 14:49 | Outpatient (BNVA) | payer MEDICARE, MEDICAID, SELFPAY | PROVIDERS: PCP Family Medicine; Visit Provider Urology | DX: R33.9 Retention of urine, unspecified (principal); N81.6 Rectocele | CPT/HCPCS: 99213 ==

== ENCOUNTER → 2022-08-21 09:10 | Outpatient (BNVA) | payer MEDICARE, MEDICAID, SELFPAY | PROVIDERS: PCP Family Medicine; Visit Provider Internal Medicine | DX: I48.91 Unspecified atrial fibrillation (principal); I25.5 Ischemic cardiomyopathy; I11.0 Hypertensive heart disease with heart failure; I50.43 Acute on chronic combined systolic (congestive) and diastolic (congestive) heart failure; Z87.891 Personal history of nicotine dependence; Z79.01 Long term (current) use of anticoagulants | CPT/HCPCS: 99214 ==

== ENCOUNTER 2022-08-27 11:17 | Emergency (ER) | payer MEDICARE, MEDICAID, SELFPAY ==
[2022-08-27 11:35] VITALS: BP 120/71; PULSE 84; RESP 16; TEMP 36.3; O2SAT 95
--- NOTE | 2022-08-27 12:12 | USCV_ITS ---
Ilana Lau Age: 76 Gender: F : 1945 Exam Date: 08/27/2022 12:34 Ordering Phys: Joseph Mccrary Technologist: CT Exam Location: [facility] [place]_ Indication: PROCEDURES: Venous duplex imaging was performed in only the right upper extremity. The following venous structures were evaluated: internal jugular vein, subclavian vein, axillary vein, and brachial veins. In addition, the basilic vein, cephalic vein, radial vein, and ulnar vein. FINDINGS: The veins of the right upper extremity are readily compressible with normal venous flow dynamics including spontaneous flow, respiratory phasic variation and augmentation. CONCLUSIONS No right upper extremity DVT. Dr. Grisel Lopez DO (Electronically Signed) Final Date: 27 August 2022 16:13 S
--- NOTE | 2022-08-27 12:24 | W.ED.EXTPRO ---
HPI - Extremity Problem General: Chief complaint: Extremity Injury, Upper Stated complaint: right arm pain Time Seen by Provider: 08/27/22 11:42 History of Present Illness: Patient is a 36-year-old female comes to the ED with right arm pain. Symptoms started approximately 1 week ago. Pain is located just above her elbow on the anterior aspect of her arm. Denies any injury or trauma to cause pain. She rates her pain as mild. She is currently on Eliquis daily. She was seen at walk-in clinic today by Dr. Ghosh and they sent her here to the ED to get an ultrasound done to check for blood clot. Associated symptoms: Deny chest pain, fever(s) or rash Review of Systems Const: Denies: fever(s), chills or fatigue Eyes: Denies: change in vision or eye discomfort ENMT: Denies: throat pain, odynophagia, nasal discharge or nasal congestion Card: Denies: chest pain, palpitations, edema, swelling of feet/ankles, dyspnea on exertion or orthopnea Resp: Denies: dyspnea, productive cough or non-productive cough GI: Denies: abdominal pain, nausea, vomiting, diarrhea, constipation or hematochezia : Denies: flank pain, dysuria or hematuria Musc: Reports: extremity pain (Right arm); Denies: neck pain, back pain or extremity swelling Skin/Breast: Denies: rash or new lesions Neuro: Denies: headache(s), numbness in extremities or weakness in extremities PFS ED PFSH: Medical History Afib Blood in stool Cardiogenic shock Chronic episodic atrial fibrillation Cystocele Diverticulosis Hypertension POP-Q stage 3 rectocele Rectocele Shortness of breath Surgical History H/O thyroidectomy H/O total knee replacement right knee H/O: hysterectomy History of colonoscopy with polypectomy 2019 History of tubal ligation Hx of appendectomy Family History Father , unknown age CAD (coronary artery disease) Brother , age unknown Cancer colon Sister Cancer lungs Mother , in late 60s Lung disease Denies family history of Colon cancer Ovarian cancer Diabetes Clotting disorder Hyperlipidemia Chronic kidney disease (CKD) Breast cancer Suicide Anesthesia complication Bleeding disorder Uterine cancer Thyroid condition Stroke Social History Smoking and tobacco status: former smoker Alcohol intake: never Current occupational status: retired History of recent travel: No Physical Exam Const: COMMON NORMALS: patient oriented x3 and alert GENERAL APPEARANCE: cooperative HENMT: COMMON NORMALS: normocephalic HEAD & SCALP: normocephalic MOUTH: Normal oral and palatal mucosa present THROAT: posterior oropharynx normal and uvula midline Neck/C-Spine: COMMON NORMALS: supple GENERAL: Yes normal visual inspection Resp: COMMON NORMALS: normal respiratory effort, No retractions, No use of accessory muscles and clear to auscultation bilaterally AUSCULTATION: clear to auscultation bilaterally Cardio: COMMON NORMALS: regular rate, regular rhythm, S1 normal heart sound present, S2 normal heart sound present, No gallops present (Cardio), No clicks present (Cardio), No murmurs present (Cardio) and Peripheral pulses 2+ throughout RATE: regular rate RHYTHM: regular rhythm HEART SOUNDS: S1 normal heart sound present and S2 normal heart sound present PERIPHERAL PULSES: Peripheral pulses 2+ throughout GI: COMMON NORMALS: Normal to inspection, nondistended, normoactive bowel sounds present, Soft to palpation, non-tender and no masses PALPATION: Yes Soft to palpation : COMMON NORMALS: Yes no CVA tenderness BLADDER/KIDNEY EXAM: Yes no CVA tenderness Back/Pelvis: COMMON NORMALS: no CVA tenderness Extremity: COMMON NORMALS: normal to inspection NARRATIVE EXTREMITY EXAM: Right arm-patient has tenderness to the anterior aspect of elbow, with mild erythema. No swelling noted. Neurovascular tact distally. Neuro: COMMON NORMALS: patient oriented x3 SENSORIUM/ORIENTATION: Yes alert GAIT: Yes Normal gait present Skin: GENERAL SKIN EXAM: dry skin Course Vital Signs: Vital signs: Vital Signs Temperature 97.4 F L 08/27/22 11:35 Pulse Rate 74 08/27/22 13:34 Respiratory Rate 15 08/27/22 13:34 Blood Pressure 125/74 08/27/22 13:34 Pulse Oximetry 98 08/27/22 13:34 Oxygen Delivery Me thod 08/27/22 11:35 MDM - Extremity (Nontraumatic) Medical Decision Making Patient is a 36-year-old female comes to the ED with right arm pain. Symptoms started approximately 1 week ago. Pain is located just above her elbow on the anterior aspect of her arm. Denies any injury or trauma to cause pain. She rates her pain as mild. She is currently on Eliquis daily. She was seen at walk-in clinic today by Dr. Ghosh and they sent her here to the ED to get an ultrasound done to check for blood clot. Vitals are stable. Right arm-patient has tenderness to the anterior aspect of elbow, with mild erythema. No swelling noted. Neurovascular tact distally. Ultrasound venous duplex of right upper extremity showed no DVT or blood clot. Patient was diagnosed with cellulitis and was discharged home on antibiotic. Told to follow-up with PCP in the next week for reevaluation. Patient understood agree with plan. Discharge Plan Discharge Patient Disposition: Home Clinical Impression: Cellulitis of arm, right Condition: Stable Prescriptions: New cephalexin 500 mg capsule 500 mg PO Q6H 7 Days Qty: 28 0RF No Action levothyroxine [Euthyrox] 25 mcg tablet 50 mcg PO QAM Pacerone 200 mg tablet 200 mg PO DAILY Qty: 90 3RF alprazolam 0.25 mg tablet 0.25 mg PO .nightly prn Lasix 40 mg tablet 40 mg PO DAILY potassium chloride 10 mEq tablet extended release 20 meq PO DAILY Qty: 270 3RF Rx Instructions: take it with the Lasix Eliquis 5 mg tablet 5 mg PO BID@06,18 Qty: 180 3RF diphenhydramine-acetaminophen [Tylenol PM Extra Strength] 25-500 mg Tablet 1 tab PO BEDTIME PRN (Reason: sleep/headache) fenofibrate 54 mg tablet 54 mg PO DAILY albuterol sulfate 90 mcg/actuation HFA aerosol inhaler 2 puff INHALATION Q6H PRN (Reason: Shortness Of Breath) polyethylene glycol 3350 17 gram Powder In Packet 17 g PO BID Qty: 180 0RF clopidogrel 75 mg Tablet 75 mg PO DAILY Qty: 90 0RF metoprolol tartrate 25 mg Tablet 12.5 mg PO BID@0900,2100 Qty: 90 0RF Discharge Orders: Discharge ED (Routine); Ordered 08/27/22 Ordered By: Joseph Mccrary Referrals: Lisa Nunn DO [Primary Care Provider] - Discharge Diet: Regular Discharge Activity: Increase activity as tolerated Activity Restrictions/Additional Instructions: Follow-up with medical provider as directed. Take medications as prescribed. Return to the ER or your medical provider if condition worsens. Please read and understand discharge instructions. Thank you for choosing [facility] for your healthcare needs today. Please realize this is an emergency room and that we are providing you with a medical screening exam and this may not be complete and all inclusive of all the testing and or work up that you may need to determine your ailment or severity of your illness. It is very important that you follow up as instructed or that you return to the Emergency Department should you have concerns or if your condition changes or worsens in any way. Coding Level of Care Code ED Box Press Operator for Adan Fwmira Exam Comprehensive
[2022-08-27 13:34] VITALS: BP 125/74; PULSE 74; RESP 15; O2SAT 98
== END 2022-08-27 13:35 | disposition home or self-care (01) ==
PROVIDERS: Emergency Provider Physician Assistant; PCP Family Medicine
DX: L03.113 Cellulitis of right upper limb (principal); M79.601 Pain in right arm; Z79.01 Long term (current) use of anticoagulants
CPT/HCPCS: 93971; 99284

== ENCOUNTER 2022-09-07 10:02 | Outpatient (CLI) | payer MEDICARE, MEDICAID, SELFPAY ==
--- NOTE | 2022-09-07 10:17 | USCV_ITS ---
Ilana Lau Age: 76 Gender: F : 1945 Exam Date: 09/07/2022 10:45 Ordering Phys: Manuela Street Technologist: Desirae Huntley [place] [facility] [place]: CHF and evaul for icd BP: 118 / 64 HR: 68 Rhythm: Sinus Technical Quality: Adequate MEASUREMENTS (Male / Female) Normal Values 2D ECHO LV Diastolic Diameter PLAX 4.6 cm 4.2 - 5.9 / 3.9 - 5.3 cm LV Systolic Diameter PLAX 4.5 cm LV Chamber Size 5.0 cm IVS Diastolic Thickness 0.8 cm 0.6 - 1.0 / 0.6 - 0.9 cm IVS Systolic Thickness 1.3 cm LVPW Diastolic Thickness 1.1 cm 0.6 - 1.0 / 0.6 - 0.9 cm LVPW Systolic Thickness 1.5 cm RV Chamber Size 4.1 cm LVOT Diameter 2.0 cm LV Ejection Fraction 2D Teich 25.5 % LV Ejection Fraction MOD 2C 14.4 % LV Ejection Fraction 2C AL 19.2 % LA Diameter 3.9 cm LA Width 3.6 cm LA Height 2.8 cm RA Width 4.3 cm RA Height 3.6 cm Aorta at Sinotubular Diameter 3.2 cm IVC Diameter 1.5 cm M-MODE Aortic Annulus Diameter 3.0 cm LA Ao Ratio MM 1.4 MV E Point Septal Separation 0.7 cm DOPPLER TR Peak Velocity 283.0 cm/s TR Peak Gradient 32.0 mmHg TR Mean Velocity 204.8 cm/s TR Mean Gradient 18.4 mmHg TR Velocity Time Integral 83.3 cm TV Peak E Velocity 91.0 cm/s Right Atrial Pressure 3.0 mmHg Pulmonary Artery Systolic Pressu 35.0 mmHg PV Peak Velocity 41.0 cm/s RV Acceleration Time 0.1 s RV Ejection Time 0.3 s RV AcT/ET 0.4 FINDINGS Left Ventricle Right Ventricle Right Atrium Left Atrium Mitral Valve Aortic Valve Tricuspid Valve Pulmonic Valve Pericardium Aorta IVC CONCLUSIONS This is a limited echocardiogram performed to assess LV systolic function. LV systolic function is severely reduced with EF of 20-25%. Severe global hypokinesis is seen. 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 Compared to prior echocardiogram from 05/2022, no significant changes are seen. Darci Ruiz MD (Electronically Signed) Final Date: 08 September 2022 09:29 S
== END 2022-09-07 10:03 | disposition home or self-care (01) ==
LOC: RAD 10:02
PROVIDERS: PCP Family Medicine; Visit Provider Nurse Practitioner Family
DX: I25.5 Ischemic cardiomyopathy (principal)
CPT/HCPCS: 93308

== ENCOUNTER → 2022-09-29 13:20 | Outpatient (BNVA) | payer MEDICARE, MEDICAID, SELFPAY | PROVIDERS: PCP Family Medicine; Visit Provider Thoracic Surgery (Cardiothoracic Vascular Surgery) | DX: I11.0 Hypertensive heart disease with heart failure (principal); I50.43 Acute on chronic combined systolic (congestive) and diastolic (congestive) heart failure; Z87.891 Personal history of nicotine dependence | CPT/HCPCS: 99203 ==

== ENCOUNTER 2022-10-13 14:00 | Observation (INO) | payer MEDICARE, MEDICAID, SELFPAY ==
[2022-10-08 08:01] VITALS: BMI 28.3
[2022-10-08 08:37] LABS: Basophils # 0.1 10^3/uL (0.0-0.1); Basophils % 1.5 %; Eosinophils # 0.1 10^3/uL (0.0-0.8); Eosinophils % 1.8 %; Hematocrit 45.2 % (37.0-47.0); Hemoglobin 13.9 g/dL (11.5-15.3); Lymphocytes # 2.4 10^3/uL (0.8-4.8); Lymphocytes % 32.8 %; Mean Corpuscular HGB Conc 30.8 g/dL (30.0-36.0); Mean Corpuscular Hemoglobin 28.7 pg (28.0-34.0); Mean Corpuscular Volume 93.4 fl (81-99); Mean Platelet Volume 9.9 fL (7.4-10.4); Monocytes # 0.7 10^3/uL (0.2-0.9); Monocytes % 10.1 %; Neutrophils # 3.93 10^3/uL (1.8-7.7); Neutrophils % 53.7 %; Nucleated Red Blood Cells % 0 %; Platelet Count 261 10^3/cmm (130-400); Red Blood Count 4.84 10^6/uL (4.1-5.3); Red Cell Distribution Width 14.4 % (12.1-15.1); White Blood Count 7.3 10^3/uL (4.0-10.0)
[2022-10-08 08:42] LABS: Add Urine Microscopic? YES; Bacteria Urine 1+ /hpf; Bilirubin Urine Neg (Negative); Blood Urine 2+ (Negative); Glucose Urine UA Norm (Normal); Ketones Urine Negative (Negative); Leukocyte Esterase Urine Negative (Negative); Nitrate Urine Negative (Negative); Protein Urine Neg (Negative); RBC Urine 0-4 /hpf (0-2); Squamous Epithelial Cell Urine 0-4 /hpf (0-5); Urine Appearance Hazy (CLEAR); Urine Color Yellow (Yellow); Urobilinogen Urine Norm (Negative); WBC Urine 0-4 /hpf (0-5); pH Urine 5 (5-7)
[2022-10-08 08:55] LABS: Anion Gap 13.6 (5-19); Blood Urea Nitrogen 23 mg/dL (8-23); Calcium 9.2 mg/dL (8.5-10.5); Carbon Dioxide 29 mmol/L (22-29); Chloride 101 mmol/L (98-107); Glucose 77 mg/dL (65-115); Osmolality Calculated 292 mOsm/kg (285-295); Potassium 3.6 mmol/L (3.5-5.1); Sodium 140 mmol/L (136-145)
--- NOTE | 2022-10-09 08:02 | ANES.PREANE2 ---
Pre-Anesthetic Assessment Height/Weight: Height 1.6 m Weight 72.575 kg Preop Diagnosis: Congestive Heart Failure Operation Date: 10/13/22 10:35 Proposed Procedures p Defibrillator Placement 41379,I50.43(Not Applicable) - Carlton Vazquez MD Familial anesthetic complications: none Was Clonidine taken within 24 hours: N/A Social No alcohol and No tobacco (h/o smoking) Exam alert, oriented x 3 and clear to auscultation bilaterally Airway Submandibular: within normal limits Cervical ROM: within normal limits Mallampati: Class II Dentition: false Pulmonary Chronic Obstructive Pulmonary Disease CV/HEM Atrial Fibrillation, Anemia, Arrythmia, Coronary Artery Disease, Congestive Heart Failure, Hypertension and Myocardial Infarction Life Vest ?CONCLUSIONS ?This is a limited echocardiogram performed to assess LV systolic ?function.? LV systolic function is severely reduced with EF of ?20-25%.? Severe global hypokinesis is seen. LV apical aneurysm ?is seen. ?Compared to prior echocardiogram from 05/2022, no significant ?changes are seen. ?Darci Ruiz MD ?(Electronically Signed) ?Final Date:? ? ? 08 September 2022 Chronic Renal Insufficiency Metabolic Thyroid Disease Anesthetic Plan ASA status: 4 Anesthesia: Choice Medications/Allergies Home Medications Medication Instructions Recorded Confirmed Last Taken Type diphenhydramine 25 1 tab PO BEDTIME PRN sleep/headache 08/05/21 10/08/22 10/07/22 History mg-acetaminophen 500 mg tablet (Tylenol PM Extra Strength) potassium chloride 10 mEq 20 meq PO DAILY #270 tabs 01/02/22 10/08/22 10/08/22 Rx tablet,extended release apixaban 5 mg tablet (Eliquis) 5 mg PO BID@06,18 #180 tabs 02/26/22 10/08/22 10/08/22 Rx albuterol sulfate 90 mcg/actuation 2 puff inhalation Q6H PRN 06/11/22 10/08/22 10/08/22 History aerosol inhaler Shortness Of Breath fenofibrate 54 mg tablet 54 mg PO DAILY 06/11/22 10/08/22 10/08/22 History clopidogrel 75 mg tablet 75 mg PO DAILY #90 tabs 06/19/22 10/08/22 10/08/22 Rx metoprolol tartrate 25 mg tablet 12.5 mg PO BID@0900,2100 #90 tabs 06/19/22 10/08/22 10/08/22 Rx polyethylene glycol 3350 17 gram 17 g PO BID #180 ea 06/19/22 10/08/22 10/08/22 Rx oral powder packet alprazolam 0.25 mg tablet 0.25 mg PO .nightly prn PRN Sleep 06/29/22 10/08/22 10/05/22 History furosemide 40 mg tablet (Lasix) 40 mg PO DAILY Edema 08/21/22 10/08/22 10/08/22 History amiodarone 200 mg tablet (Pacerone) 200 mg PO BEDTIME 10/08/22 10/08/22 10/07/22 History levothyroxine 50 mcg tablet 50 mcg PO DAILY 10/08/22 10/08/22 10/08/22 History Allergies Allergy/AdvReac Type Severity Reaction Status Date / Time atorvastatin [From Lipitor] Allergy ADR-Muscle Verified 10/08/22 07:51 Pain PFSH Anesthesia Medical History Afib Blood in stool Cardiogenic shock Chronic episodic atrial fibrillation Cystocele Diverticulosis Hypertension POP-Q stage 3 rectocele Rectocele Shortness of breath Surgical History H/O thyroidectomy H/O total knee replacement right knee H/O: hysterectomy History of colonoscopy with polypectomy 2019 History of tubal ligation Hx of appendectomy Family History Father , unknown age CAD (coronary artery disease) Brother , age unknown Cancer colon Sister Cancer lungs Mother , in late 60s Lung disease Denies family history of Colon cancer Ovarian cancer Diabetes Clotting disorder Hyperlipidemia Chronic kidney disease (CKD) Breast cancer Suicide Anesthesia complication Bleeding disorder Uterine cancer Thyroid condition Stroke Social History Smoking and tobacco status: former smoker Alcohol intake: never Current occupational status: retired Data Anesthesia 10/08/22 08:30 10/08/22 08:30 Short CBC 10/08/22 Range/Units 08:30 WBC 7.3 (4.0-10.0) 10^3/uL Hgb 13.9 (11.5-15.3) g/dL Hct 45.2 (37.0-47.0) % MCV 93.4 (81-99) fl Plt Count 261 (130-400) 10^3/cmm Neut % (Auto) 53.7 % Neut # (Auto) 3.93 (1.8-7.7) 10^3/uL BMP 10/08/22 08:30 Sodium 140 Potassium 3.6 Chloride 101 Carbon Dioxide 29 BUN 23 Creatinine 1.1 H Glucose 77 Calcium 9.2 Urine 10/08/22 Range/Units 08:24 Urine Color Yellow (Yellow) Urine Appearance Hazy A (CLEAR) Urine pH 5 (5-7) Ur Specific [place] 1.020 (1.005-1.030) Urine Protein Neg (Negative) Urine Glucose (UA) Norm (Normal) Urine Ketones Negative (Negative) Urine Nitrate Negative (Negative) Urine Bilirubin Neg (Negative) Ur Leukocyte Esterase Negative (Negative) Urine RBC 0-4 H (0-2) /hpf Urine WBC 0-4 H (0-5) /hpf Cardiac Studies: Echocardiogram 08/05/21 Echocardiogram Limited Views 09/07/22 Echocardiogram Ultrasound 10/25/20 Sestamibi Stress Test (Cardiology) 10/28/20
[2022-10-13] VITALS (16 sets, daily range): BP systolic 108–146; BP diastolic 60–88; PULSE 65–96; RESP 15–19; TEMP 36.1–36.8; O2SAT 90–97
--- NOTE | 2022-10-13 08:52 | SC_ITS ---
WS: [id number] EXAMINATION: C-arm FL for Pacemaker REASON FOR EXAM: AICD Implantation COMPARISON: None available. ORDER DATE: 10/13/2022 8:52 AM FINDINGS: C-arm fluoroscopy provided during ICD placement. Total fluoroscopy time 77.4 seconds SC/C-arm FL for Pacemaker IMPRESSION: Fluoroscopy provided as described above.
[2022-10-13] MEDS: sodium chloride 0.9% 1,000 ML 30 ML IV (09:20)
--- NOTE | 2022-10-13 09:20 | P.ANESUD_ITS ---
Pre-Anesthetic Update Pre-Anesthetic Assessment: Date of Surgery/Procedure: 10/13/22 Preop Frances gnosis: Congestive Heart Failure Proposed Procedure: Operation Date: 10/13/22 10:35 Proposed Procedures p Defibrillator Placement [id number],I50.43(Not Applicable) - Carlton Vazquez MD Any changes to Pre-Anesthetic Assessment?: No Last Intake: Intake Last Liquid Date 10/12/22 Last Liquid Time 19:30 Last Solid Date 10/12/22 Last Solid Time 19:30 Vitals: Temperature 97.7 F 10/13/22 09:02 Pulse Rate 70 10/13/22 09:02 Pulse Rhythm 10/13/22 09:03 Pulse Strength 3+ Normal 10/13/22 09:03 Respiratory Rate 16 10/13/22 09:02 Blood Pressure 132/78 10/13/22 09:02 Blood Pressure Shanta n 96 10/13/22 09:02 Pulse Oximetry 97 10/13/22 09:02 Oxygen Delivery Me thod 10/13/22 09:03 Exam: Pre-Anes Outpt Exam: alert, oriented x 3, clear to auscultation bilaterally and regular rate & rhythm Cardiac Studies: Echocardiogram 08/05/21 Echocardiogram Limited Views 09/07/22 Echocardiogram Ultrasound 10/25/20 Sestamibi Stress Test (Cardiology) 10/28
--- NOTE | 2022-10-13 10:37 | P.HPUD_ITS ---
Surgery/Procedure H&P Update DATE OF PROCEDURE: October 13, 2022 DATE H&P PERFORMED: 09/29/22 H&P UPDATE INFORMATION: I have reviewed H&P completed within last 30 days, I have examined patient prior to procedure and Changes to prior documentation as noted here CHANGES TO PREVIOUS DOCUMENTATION: I again carefully reviewed with Ms. Lau and her family the increased bleeding risk related to Plavix and Eliquis. She has undergone coronary stenting x2 to the LAD in May of last year. Therefore, her Plavix cannot be completely discontinued and was only held yesterday. Her Eliquis has been held 2 days. She does have now longstanding atrial fibrillation. The increased risk of bleeding complications which may require revision or increased risk of infection were very frankly discussed and all questions answered. They stated under standing and wished to proceed. PREOP DIAGNOSIS: Congestive Heart Failure PRIMARY INDICATION FOR PROCEDURE: Medically refractory ischemic cardiomyopathy with congestive heart failure PLANNED PROCEDURE: Operation Date: 10/13/22 10:35 Proposed Procedures p Defibrillator Placement 44606,I50.43(Not Applicable) - Carlton Vazquez MD
[2022-10-13] MEDS: ceFAZolin 2,000 MG in sodium chloride 0.9% (plus) 50 ML 100 MG IV (11:00)
[2022-10-13] MEDS: lidocaine 2% INJ 20 mL INJECTION (11:15)
[2022-10-13] MEDS: ceFAZolin 1,000 mg SDV 1000 MG IRRIGATION (11:22)
--- NOTE | 2022-10-13 12:41 | XR_ITS ---
WS: [id number] EXAMINATION: XR chest 1V portable [id number] REASON FOR EXAM: post ICD ORDER DATE: 10/13/2022 12:44 PM FINDINGS: There are perihilar and parenchymal granulomatous calcifications. Cardiomegaly is demonstrated. Ther e is an atherosclerotic aorta containing calcified plaque. There are no pleural effusions. Left ICD d emonstrating satisfactory lead placement in the right ventricle. No sign of pneumothorax. XR/XR chest 1V portable [id number] IMPRESSION: CARDIOMEGALY WITH NO ACUTE PULMONARY CHANGE.
--- NOTE | 2022-10-13 12:48 | PM.OP ---
Operative Report Date of procedure: October 13, 2022 Pre-op diagnosis: Preop Diagnosis Congestive Heart Failure Post-op diagnosis: same Procedure done: AICD implantation Implants: [employer] AICD generator Medtronic AICD right ventricular lead Pathology: none sent Surgeon: Carlton Vazquez Anesthesia: MAC and Local Estimated blood loss: 20 ml Complications: None Condition: stable Disposition: PACU Brief History: Patient is a 76-year-old female with medically refractory congestive heart failure and ischemic cardiomyopathy. She had 2 stents placed in the LAD in May and has been on Plavix since that procedure as well as now Eliquis due to atrial fibrillation. She has been wearing a LifeVest. She was referred for AICD implantation. Increased risk for bleeding complication related to the Plavix and Eliquis administration were carefully discussed. Plavix was only held for 1 day and Eliquis for 2 days prior to the procedure, given that it has been just between 3 and 4 months from coronary stent placement. Increased complications from this were carefully discussed with the patient and their family. Proper consents have been reviewed and signed. Procedure: Procedure: Ms. Lau was taken to the OR suite and placed in the supine position over a shoulder roll. She received conscious sedation with continuous anesthesia monitoring by. Her entire chest was sterilely prepped and draped. 1% lidocaine was infiltrated in the left subclavicular region. While in Trendelenburg position, utilizing modified seldinger technique, a guidewire was placed in the left subclavian vein. This was confirmed in position by fluoroscopy. Next, after infiltration with lidocaine, a subcutaneous pocket was created beginning from the exit point of the guidewire and extending laterally and inferiorly. Cautery was utilized to create the pocket just above the pectoralis musculature. Hemostasis was confirmed. An antibiotic-soaked sponge was placed in the wound. A dilator and tear-away sheath was placed over the guidewire and advanced under fluoroscopy. Guidewire and dilator were removed. Next using a combination of curved and straight stylettes, the right ventricular lead was placed in position by fluoroscopy. The distal screw was extended. Interrogation was then performed confirming appropriate parameters. The tear-away sheath was then removed and the ventricular lead was sewn to the floor of the subcutaneous pocket. AICD generator was brought into the field, and after confirmation of hemostasis in the subcutaneous pocket, the lead was connected to the generator with appropriate capture. The entire system was interrogated by fluoroscopy. Lead and generator were secured in the pocket. Sponge and needle count was correct. The wound was then closed in 2 layers of 3-0 Vicryl suture. Skin was reapproximated in a subcuticular manner with 4-0 Monocryl suture. A pressure dressing was applied. The left arm was placed in a sling. She had equal breath sounds bilaterally. She was then transferred to the PACU, where chest x-ray is currently pending. Following are the specifics of this system: Right ventricular lead is 62 cm and model 6935M. Serial number [id number] Ventricular lead had sensing of 8.5 mV with an impedance of 446 ohms. Threshold was 0.6 V [employer] AICD generator: Model # [id number] Serial #[id number]
--- NOTE | 2022-10-13 12:50 | PC.NURSE ---
xray completed at bedside
--- NOTE | 2022-10-13 13:28 | ANE.PACU2 ---
Inpatient post-anesthesia follow up: Airway intact: Yes Vital signs: Temperature 97.7 F Pulse Rate 68 Respiratory Rate 18 Blood Pressure 130/88 Pulse Oximetry 94 Oxygen Delivery Me thod Room Air Oxygen Flow Rate Fraction of Inspir ed Oxygen Hydration adequate: Yes Nausea and vomiting: No Pain level: 1 Mental status: Baseline
[2022-10-13] MEDS: HYDROcodone-acetaminophen 5-325 mg Tablet 1 TAB PO ×2 (15:23→20:51)
--- NOTE | 2022-10-13 19:09 | PC.NURSE ---
Patient arrived to floor via bed from PACU, VSS, AAOx4, telemetry in place with interference. RT called to floor to help trouble shoot. Patient c/o of a thumping to left chest and back that resolved with oral pain medication per SEP. Incision area clean, dry and intact, with minimal bruising. Ice pack in place on/off. Sling in place. Room clean and clutter free with call light in reach. Family at bedside.
[2022-10-13] MEDS: ceFAZolin 1,000 MG in sodium chloride 0.9% (plus) 50 ML 100 MG IV (19:12)
[2022-10-13] MEDS: amiodarone 200 mg Tablet PO (20:45)
[2022-10-13] MEDS: metoprolol tartrate 25 mg Tablet 12.5 MG PO (20:46)
[2022-10-13] MEDS: ALPRAZolam 0.5 mg Tablet 0.25 MG PO (20:51)
[2022-10-14] VITALS: BP 102/68; PULSE 65; RESP 17; TEMP 36.6; O2SAT 92
[2022-10-14] MEDS: ceFAZolin 1,000 MG in sodium chloride 0.9% (plus) 50 ML 100 MG IV (02:17)
[2022-10-14 04:00] VITALS: BP 120/77; PULSE 63; RESP 16; TEMP 36.7; O2SAT 92
[2022-10-14] MEDS: HYDROcodone-acetaminophen 5-325 mg Tablet 1 TAB PO (05:41)
[2022-10-14] MEDS: magnesium hydroxide 30 mL UDC 45 ML PO (05:41)
[2022-10-14 06:00] VITALS: PULSE 67
--- NOTE | 2022-10-14 06:46 | PC.NURSE ---
Dr. Vazquez here this am, and changed pt drsg. Site evaluated. Physician spoke to pt and daughter regarding new orders and new instructions so that they can d/c today.
--- NOTE | 2022-10-14 07:21 | P.DS_ITS ---
Discharge Providers Date of Admission: 10/13/22 14:00 Date of Discharge: October 14, 2022 Attending Provider at Admission: Carlton Vazquez MD Attending Provider at Discharge: Carlton Vazquez MD Primary Care Provider: Lisa Nunn DO Reason for Visit Reason for Visit: I50.43 Brief History: 76-year-old female with ischemic cardiomyopathy and refractory congestive heart failure with ejection fraction of 20% Hospital Course Hospital Course Ms. Lau is a 76-year-old female with ischemic cardiomyopathy and refractory congestive heart failure with ejection fraction of 20%. She also has atrial fibrillation. She was referred by Dr. Ruiz for AICD implantation. After preop evaluation she was electively admitted and underwent single-lead AICD implantation yesterday. Postoperatively, she has been followed under observation receiving prophylactic antibiotics and pain medication as required. Incision line remains clean and dry today. There is some ecchymosis along the incision line itself though no substantial evidence for fluid collection. No erythema or evidence for drainage. Interrogation of the system this morning revealed appropriate function. She will be discharged home today in stable condition. Physical Exam Chest: OTHER: There is ecchymosis along the incision line though no evidence for pocket fluid collection. There is no erythema or evidence for drainage. Interrogation of the system this morning was unremarkable. Only modest postop discomfort. Vital signs have remained stable. Discharge Data Studies Completed and Pending Completed Studies During Hospitalization Category Date Time Status XR chest 1V portable [id number] Urgent Exams 10/13/22 12:41 Completed Radiology Impressions C-Arm Fluoroscopy 10/13/22 08:52 IMPRESSION: Fluoroscopy provided as described above. Chest X-Ray 10/13/22 12:41 IMPRESSION: CARDIOMEGALY WITH NO ACUTE PULMONARY CHANGE. Laboratory Results WBC 7.3 10^3/uL (4.0-10.0) 10/08/22 08:30 RBC 4.84 10^6/uL (4.1-5.3) 10/08/22 08:30 Hgb 13.9 g/dL (11.5-15.3) 10/08/22 08:30 Hct 45.2 % (37.0-47.0) 10/08/22 08:30 MCV 93.4 fl (81-99) 10/08/22 08:30 MCH 28.7 pg (28.0-34.0) 10/08/22 08:30 MCHC 30.8 g/dL (30.0-36.0) 10/08/22 08:30 RDW 14.4 % (12.1-15.1) 10/08/22 08:30 Plt Count 261 10^3/cmm (130-400) 10/08/22 08:30 MPV 9.9 fL (7.4-10.4) 10/08/22 08:30 Neut % (Auto) 53.7 % 10/08/22 08:30 Lymph % (Auto) 32.8 % 10/08/22 08:30 [place] % (Auto) 10.1 % 10/08/22 08:30 Eos % (Auto) 1.8 % 10/08/22 08:30 Baso % (Auto) 1.5 % 10/08/22 08:30 Neut # (Auto) 3.93 10^3/uL (1.8-7.7) 10/08/22 08:30 Lymph # (Auto) 2.4 10^3/uL (0.8-4.8) 10/08/22 08:30 [place] # (Auto) 0.7 10^3/uL (0.2-0.9) 10/08/22 08:30 Eos # (Auto) 0.1 10^3/uL (0.0-0.8) 10/08/22 08:30 Baso # (Auto) 0.1 10^3/uL (0.0-0.1) 10/08/22 08:30 Nucleated RBC % (auto) 0 % 10/08/22 08:30 Nucleated RBCs # 0.0 /100WBC 10/08/22 08:30 Sodium 140 mmol/L (136-145) 10/08/22 08:30 Potassium 3.6 mmol/L (3.5-5.1) 10/08/22 08:30 Chloride 101 mmol/L (98-107) 10/08/22 08:30 Carbon Dioxide 29 mmol/L (22-29) 10/08/22 08:30 Anion Gap 13.6 (5-19) 10/08/22 08:30 BUN 23 mg/dL (8-23) 10/08/22 08:30 Creatinine 1.1 mg/dL (0.5-0.9) H 10/08/22 08:30 GFR Calculation Not Reportable 10/08/22 08:30 Glucose 77 mg/dL (65-115) 10/08/22 08:30 Calculated Osmolality 292 mOsm/kg (285-295) 10/08/22 08:30 Calcium 9.2 mg/dL (8.5-10.5) 10/08/22 08:30 Urine Color Yellow (Yellow) 10/08/22 08:24 Urine Appearance Hazy (CLEAR) A 10/08/22 08:24 Urine pH 5 (5-7) 10/08/22 08:24 Ur Specific [place] 1.020 (1.005-1.030) 10/08/22 08:24 Urine Protein Neg (Negative) 10/08/22 08:24 Urine Glucose (UA) Norm (Normal) 10/08/22 08:24 Urine Ketones Negative (Negative) 10/08/22 08:24 Urine Blood 2+ (Negative) H 10/08/22 08:24 Urine Nitrate Negative (Negative) 10/08/22 08:24 Urine Bilirubin Neg (Negative) 10/08/22 08:24 Urine Urobilinogen Norm mg/dL (Negative) 10/08/22 08:24 Ur Leukocyte Esterase Negative (Negative) 10/08/22 08:24 Urine RBC 0-4 /hpf (0-2) H 10/08/22 08:24 Urine WBC 0-4 /hpf (0-5) H 10/08/22 08:24 Ur Squamous Epith Cells 0-4 /hpf (0-5) H 10/08/22 08:24 Amorphous Sediment Not Reportable 10/08/22 08:24 Urine Bacteria 1+ /hpf (NONE) H 10/08/22 08:24 Procedures Performed [employer] AICD implantation on October 13, 2022 Vitals Last Vital Signs Temp 98.0 F 10/14/22 04:00 Pulse 67 10/14/22 06:00 Resp 16 10/14/22 04:00 BP 120/77 10/14/22 04:00 Pulse Ox 92 10/14/22 04:00 O2 Del Method 10/14/22 04:00 Discharge Plan Discharge Patient Disposition: Home Condition: Stable Prescriptions: New hydrocodone-acetaminophen 5-325 mg Tablet 1 tab PO Q6H PRN (Reason: Moderate Pain) 4 Days Qty: 16 0RF sulfamethoxazole-trimethoprim [Bactrim DS] 800-160 mg tablet 1 tab PO BID Qty: 6 0RF Continued alprazolam 0.25 mg tablet 0.25 mg PO .nightly prn PRN (Reason: Sleep) Lasix 40 mg tablet 40 mg PO DAILY potassium chloride 10 mEq tablet extended release 20 meq PO DAILY Qty: 270 3RF Rx Instructions: take it with the Lasix Eliquis 5 mg tablet 5 mg PO BID@06,18 Qty: 180 3RF diphenhydramine-acetaminophen [Tylenol PM Extra Strength] 25-500 mg Tablet 1 tab PO BEDTIME PRN (Reason: sleep/headache) fenofibrate 54 mg tablet 54 mg PO DAILY albuterol sulfate 90 mcg/actuation HFA aerosol inhaler 2 puff INHALATION Q6H PRN (Reason: Shortness Of Breath) polyethylene glycol 3350 17 gram Powder In Packet 17 g PO BID Qty: 180 0RF clopidogrel 75 mg Tablet 75 mg PO DAILY Qty: 90 0RF metoprolol tartrate 25 mg Tablet 12.5 mg PO BID@0900,2100 Qty: 90 0RF levothyroxine 50 mcg Tablet 50 mcg PO DAILY amiodarone [Pacerone] 200 mg tablet 200 mg PO BEDTIME Discharge Orders: Discharge Order (Routine); Ordered 10/14/22 Ordered By: Carlton Vazquez Referrals: [facility] [Provider Group] - 1 week ([facility]) Discharge Diet: Usual diet Discharge Activity: Limit activity as instructed Patient Instructions: Opioid Safety Activity Restrictions/Additional Instructions: May remove bandage in 2 days May begin daily showers in 3 days Dry incision carefully after showers. May re-cover if desired to prevent irritation from clothing. No swimming or tub baths x 2 weeks No ointments on incision Report drainage, redness, heat, increased pain, or swelling to clinic Do not raise left arm above eye level for 1 week No heavy lifting or pulling x2 weeks Do not resume Eliquis or Plavix until October 16 Discharge Attestations Time Spent in Discharge Care*: less than 30 min Specific Discharge Activities: educating patient, discussing with test case developer/social workers/dc planners, documenting/other paperwork and evaluating patient/reviewing data Status at Discharge: Cognitive status at discharge: cognitively intact , Behavioral status at discharge: cooperative , Functional status at discharge: independent ambulation , Overall status at discharge: patient is back to baseline Quality Metrics Clinical Quality Measures [ No reported AMI, CVA or VTE this stay] Coding Level of Care Code Acute Code for Chg Fwd
[2022-10-14 07:50] VITALS: BP 107/67; PULSE 59; RESP 16; TEMP 36.8; O2SAT 93
[2022-10-14 08:00] VITALS: BP 107/67; PULSE 59; PULSE 67; RESP 16; TEMP 36.8; O2SAT 93; O2SAT 98
[2022-10-14] MEDS: levothyroxine 50 mcg Tablet PO (08:40)
[2022-10-14] MEDS: FUROsemide 40 mg Tablet PO (08:40)
[2022-10-14] MEDS: pantoprazole DR 40 mg Tablet PO (08:40)
[2022-10-14] MEDS: potassium chloride ER 20 mEq Tablet PO (08:41)
[2022-10-14] MEDS: metoprolol tartrate 25 mg Tablet 12.5 MG PO (08:47)
--- NOTE | 2022-10-14 09:48 | PC.CHAP ---
Pastoral Care Encounter/Spiritual Assessment Type of Contact [] Declined automobile upholstery trim installer visit [] Patient/Family/Request visit [] Outpatient visit [] Follow-up visit [] Physician referral [] Code/Alert [x] Routine visit [] Staff referral [] Actively dying [] Patient sleeping [] Family support [] [] Out of room [] Palliative care [] [] Receiving care in room [] Pre-surgical visit [] Trauma [] Long length of stay [] ICU visit [] Other: Relational/Emotional Strength [x] Patient feels connected with others/family/visitors/staff [] Distress [] Loneliness/isolation [] Abandonment Spirituality of Patient [x] Person of Ann [x] Attends Methodist of their Ann [x] Believes in Prayer [] Reads Bible or Mandaen materials [] There are Spiritual issues to be addressed Biostatistics Professor Interventions [x] Prayer [x] Active listening [x] Non-anxious presence [] Spiritual/emotional support [] Crisis/trauma care [] Spiritual counseling [] Bereavement support [] Provided bereavement packet [] Provided Bible/devotional materials [] Provided toy/stuffed animal, coloring book to patient or family member [] Provided Communion [] Anointing/Freedom [] Salvation [x] Completed spiritual assessment [] Other: Impact on Illness or Injury [] Angry [] Fearful [] Anxious [] Often cries [] Exhaustion [] Unable to work [] Unable to attend religion [] Unable to walk/stand [] Unable to read [] Unable to drive [] Unable to eat/drink [] Unable to sleep [] Unable to be with family [] Patient intubated [] Other: Summary Daughter was in room with Pt and second daughter, with whom the Pt lives, was on the way to hospital. Pt expecting to be released today. Time spent with patient 10m
[2022-10-14 09:55] VITALS: BP 107/67; PULSE 59; RESP 16; TEMP 36.8; O2SAT 93
== END 2022-10-14 11:00 | disposition home or self-care (01) ==
LOC: MEDSURG 14:12
PROVIDERS: Admitting Provider Thoracic Surgery (Cardiothoracic Vascular Surgery); PCP Family Medicine; Visit Provider Thoracic Surgery (Cardiothoracic Vascular Surgery)
PROC: 0JH608Z Insertion of Defibrillator Generator into Chest Subcutaneous Tissue and Fascia, Open Approach (ICD-10-PCS; CPT 33249; principal; 2022-10-13 10:25)
DX: I25.5 Ischemic cardiomyopathy (principal); I11.0 Hypertensive heart disease with heart failure; I50.43 Acute on chronic combined systolic (congestive) and diastolic (congestive) heart failure; I48.91 Unspecified atrial fibrillation; J44.9 Chronic obstructive pulmonary disease, unspecified; I25.10 Atherosclerotic heart disease of native coronary artery without angina pectoris; I25.2 Old myocardial infarction; Z87.891 Personal history of nicotine dependence
CPT/HCPCS: 33270; 36415; 71045; 76000; 80048; 81001; 85025; C1722; C1777; G0378; J0690; J2704; J3010; J7030

== ENCOUNTER → 2022-10-28 08:33 | Outpatient (BNVA) | payer MEDICARE, MEDICAID, SELFPAY | PROVIDERS: PCP Family Medicine; Visit Provider Nurse Practitioner Family | DX: I48.91 Unspecified atrial fibrillation (principal); Z95.810 Presence of automatic (implantable) cardiac defibrillator; Z79.01 Long term (current) use of anticoagulants; Z87.891 Personal history of nicotine dependence | CPT/HCPCS: 99214 ==

== ENCOUNTER 2022-11-06 11:47 | Observation (INO) | payer MEDICARE, MEDICAID, SELFPAY ==
[2022-11-06] VITALS (21 sets, daily range): BP systolic 121–152; BP diastolic 64–98; PULSE 52–71; RESP 15–22; TEMP 35.8–36.5; O2SAT 83–96; BMI 28.0
--- NOTE | 2022-11-06 12:07 | XRR_ITS ---
PROCEDURE INFORMATION: Exam: XR Chest Exam date and time: 11/06/2022 12:49 PM Age: 77 years old Clinical indication: Shortness of breath; Prior surgery; Surgery type: 2 stints; Patient HX: Has had 3 heart attacks; Additional info: Chest TECHNIQUE: Imaging protocol: Radiologic exam of the chest. Views: 1 view. COMPARISON: CR XR chest 1V portable [id number] 06/15/2022 4:25 PM FINDINGS: Lungs: Faint linear densities seen in the right perihilar region. These findings are nonspecific and were not present on prior examination. These may represent atelectasis No consolidation. Pleural spaces: Unremarkable. No pleural effusion. No pneumothorax. Heart/Mediastinum: Unremarkable. No cardiomegaly. Bones/joints: Unremarkable. Cardiac device left anterior chest. Bipolar leads are intact and well positioned. XR/XR chest 1V portable [id number] IMPRESSION: 1. No acute findings. 2. Cardiac device left anterior chest
--- NOTE | 2022-11-06 12:24 | PC.PHAR ---
PTS DAUGHTER VERIFIED PTS MEDICATIONS-PTS DAUGHTER STATES THE PTS PLAVIX WAS DCED 11/05/22 STATES THE PT DID HAVE A DOSE YESTERDAY 11/05/22 BEFORE IT WAS DCED-NOTES ARE MADE IN THE PHARMACY COMMENTS
[2022-11-06] MEDS: aspirin 81 mg Chew Tablet 324 MG PO (12:28)
--- NOTE | 2022-11-06 12:29 | ECG_ITS ---
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 Measurements Intervals [place] Rate: 52 P: 246 VA: 139 QRS: -31 QRSD: 85 T: 252 QT: 436 QTc: 409 Interpretive Statements JUNCTIONAL BRADYCARDIA LOW QRS VOLTAGE [QRS DEFLECTION < 0.5/1.0 mV IN LIMB/CHEST LEADS] ANTERIOR MYOCARDIAL INFARCTION , PROBABLY RECENT [40+ ms Q WAVE AND/OR ST/T ABNORMALITY IN V3/V4] INFERIOR MYOCARDIAL INFARCTION , PROBABLY RECENT [40+ ms Q WAVE AND/OR ST/T ABNORMALITY IN II/aVF] ACUTE [place] Compared to ECG 06/17/2022 16:11:02 Low QRS voltage now present Atrial fibrillation no longer present Myocardial infarct finding still present Electronically Signed On 11-06-2022 13:49:45 CDT by Darci Ruiz M.D. [email or web address]/[id number]
--- NOTE | 2022-11-06 12:46 | ED_ITS ---
HPI - SOB/Dyspnea General: Chief Complaint: Shortness of Breath/Dyspnea Stated Complaint: sob Time Seen by Provider: 11/06/22 12:07 Source: patient Mode of arrival: ambulatory History of Present Illness: HPI Narrative: 77-year-old female presents to the emergency room complaining of shortness of breath and worsening orthopnea over the last 24 hours. She denies any chest pain or pain in the neck arms or back. She has noticeable swelling in her lower extremities she has not changed any of her medications recently. She is on Eliquis. She has a known history of coronary artery disease. She has an AICD in place. She denies any fevers sweats chills or productive cough. She has known history of congestive heart failure with cardiomyopathy and she is concerned that that has worsened. MD elicited complaint: shortness of breath and cough Pertinent past history: congestive heart failure Onset (ago): day(s) (1) Timing: constant Severity: moderate Exacerbating factors: lying flat and exertion Relieving factors: nothing Known history of: congestive heart failure Associated symptoms: Deny abdominal pain, chest congestion, chest pain, cough, diaphoresis, dizziness, extremity pain, fever(s), hemoptysis, lightheadedness, myalgias, nausea, orthopnea, palpitations, paresthesias, polydipsia, polyuria, rash, sense of impending doom, syncope or vomiting Treatment prior to arrival: none Review of Systems Const: Denies: fever(s), chills, fatigue, malaise or diaphoresis ENMT: Denies: throat pain, ear or mastoid pain, nasal discharge or nasal congestion Card: Denies: chest pain, palpitations, lightheadedness, syncope or orthopnea Resp: Reports: dyspnea; Denies: productive cough, hemoptysis or chest congestion GI: Denies: abdominal pain, nausea or vomiting : Denies: flank pain, difficulty voiding, dysuria, urinary frequency or urinary urgency Musc: Denies: neck pain, back pain or extremity pain Skin/Breast: Denies: rash or pruritus Neuro: Denies: dizziness Endo: Denies: polyuria or polydipsia PFS ED PFSH: Medical History Afib Blood in stool Cardiogenic shock Chronic episodic atrial fibrillation Cystocele Diverticulosis Hypertension POP-Q stage 3 rectocele Rectocele Shortness of breath Surgical History AICD (automatic cardioverter/defibrillator) present H/O thyroidectomy H/O total knee replacement right knee H/O: hysterectomy History of colonoscopy with polypectomy 2019 History of tubal ligation Hx of appendectomy Family History Father , unknown age CAD (coronary artery disease) Brother , age unknown Cancer colon Sister Cancer lungs Mother , in late 60s Lung disease Denies family history of Colon cancer Ovarian cancer Diabetes Clotting disorder Hyperlipidemia Chronic kidney disease (CKD) Breast cancer Suicide Anesthesia complication Bleeding disorder Uterine cancer Thyroid condition Stroke Social History Smoking and tobacco status: former smoker Alcohol intake: never Current occupational status: retired Physical Exam Const: GENERAL APPEARANCE: cooperative and comfortable ORIENTATION/ CONSCIOUSNESS: Yes awake, Yes oriented to person, Yes oriented to place and Yes oriented to time HENMT: COMMON NORMALS: normocephalic, atraumatic and hearing grossly normal bilaterally HEAD & SCALP: normocephalic and atraumatic Resp: COMMON NORMALS: normal respiratory effort, No retractions, No use of accessory muscles and clear to auscultation bilaterally AUSCULTATION: clear to auscultation bilaterally Cardio: COMMON NORMALS: regular rate, regular rhythm and No murmurs present (Cardio) RATE: regular rate RHYTHM: regular rhythm GI: COMMON NORMALS: Soft to palpation and No hepatosplenomegaly present AUSCULTATION: Yes normoactive bowel sounds PALPATION: Yes Soft to palpation, No Tenderness to palpation present (GI), No Guarding due to palpation present (GI) and Yes No hepatosplenomegaly present : COMMON NORMALS: Yes no CVA tenderness BLADDER/KIDNEY EXAM: Yes no CVA tenderness Back/Pelvis: COMMON NORMALS: no CVA tenderness Extremity: COMMON NORMALS: normal to inspection, capillary refill normal, no clubbing, cyanosis or edema, no calf tenderness and no pedal edema Neuro: SENSORIUM/ORIENTATION: Yes oriented to person, Yes oriented to place and Yes oriented to time Skin: COMMON NORMALS: no rashes or lesions noted GENERAL SKIN EXAM: no rashes or lesions noted Course Vital Signs: Vital signs: Vital Signs Temperature 98.1 F 11/08/22 07:51 Pulse Rate 67 11/08/22 09:30 Respiratory Rate 15 11/08/22 09:30 Blood Pressure 105/55 11/08/22 09:30 Pulse Oximetry 94 11/08/22 09:30 Oxygen Delivery Me thod Room Air 11/08/22 08:00 MDM - SOB/Dyspnea Medical Decision Making Initial EKG there is a lot of artifact computer labeled as acute GA did note any acute ST elevation. Repeat EKG showed ST elevation in the inferior leads however patient still had no chest pain at the time. She only complaint of congestive heart failure symptoms. We did call a STEMI after the second EKG and I contacted Dr. Ruiz. He reviewed the EKGs as well. Given the new changes that had developed since the initial 1 he felt to should go to the Retail Performance Specialist. Patient was transferred to Retail Performance Specialist for angiogram. Patient care assumed by Dr. Ruiz. Medical Records I reviewed the patient's medical records. Lab Data I reviewed the patient's lab results. 11/08/22 04:42 11/08/22 04:42 Labs/Radiology: Radiology Impressions Chest X-Ray 11/06/22 12:07 IMPRESSION: 1. No acute findings. 2. Cardiac device left anterior chest Laboratory Results WBC 6.2 10^3/uL (4.0-10.0) 11/06/22 12:42 RBC 4.78 10^6/uL (4.1-5.3) 11/06/22 12:42 Hgb 13.7 g/dL (11.5-15.3) 11/06/22 12:42 Hct 44.3 % (37.0-47.0) 11/06/22 12:42 MCV 92.7 fl (81-99) 11/06/22 12:42 MCH 28.7 pg (28.0-34.0) 11/06/22 12:42 MCHC 30.9 g/dL (30.0-36.0) 11/06/22 12:42 RDW 14.7 % (12.1-15.1) 11/06/22 12:42 Plt Count 253 10^3/cmm (130-400) 11/06/22 12:42 MPV 9.6 fL (7.4-10.4) 11/06/22 12:42 Neut % (Auto) 58.5 % 11/06/22 12:42 Lymph % (Auto) 29.9 % 11/06/22 12:42 [place] % (Auto) 8.1 % 11/06/22 12:42 Eos % (Auto) 1.9 % 11/06/22 12:42 Baso % (Auto) 1.3 % 11/06/22 12:42 Neut # (Auto) 3.62 10^3/uL (1.8-7.7) 11/06/22 12:42 Lymph # (Auto) 1.9 10^3/uL (0.8-4.8) 11/06/22 12:42 [place] # (Auto) 0.5 10^3/uL (0.2-0.9) 11/06/22 12:42 Eos # (Auto) 0.1 10^3/uL (0.0-0.8) 11/06/22 12:42 Baso # (Auto) 0.1 10^3/uL (0.0-0.1) 11/06/22 12:42 Nucleated RBC % (auto) 0 % 11/06/22 12:42 Nucleated RBCs # 0.0 /100WBC 11/06/22 12:42 Sodium 139 mmol/L (136-145) 11/06/22 12:42 Potassium 3.9 mmol/L (3.5-5.1) 11/06/22 12:42 Chloride 103 mmol/L (98-107) 11/06/22 12:42 Carbon Dioxide 25 mmol/L (22-29) 11/06/22 12:42 Anion Gap 14.9 (5-19) 11/06/22 12:42 BUN 16 mg/dL (8-23) 11/06/22 12:42 Creatinine 1.0 mg/dL (0.5-0.9) H 11/06/22 12:42 GFR Calculation Not Reportable 11/06/22 12:42 Glucose 102 mg/dL (65-115) 11/06/22 12:42 Calculated Osmolality 289 mOsm/kg (285-295) 11/06/22 12:42 Calcium 8.8 mg/dL (8.5-10.5) 11/06/22 12:42 Total Bilirubin 0.7 mg/dL (0.15-1.2) 11/06/22 12:42 AST 18 U/L (0-32) 11/06/22 12:42 ALT 8 U/L (0-33) 11/06/22 12:42 Alkaline Phosphatase 47 U/L (35-105) 11/06/22 12:42 Troponin T Baseline 21 ng/L (0-10) H 11/06/22 12:42 NT-Pro-B Natriuret Pep 5910 pg/mL (0-450) H 11/06/22 12:42 Total Protein 7.1 g/dL (6.6-8.7) 11/06/22 12:42 Albumin 3.9 g/dL (3.5-5.2) 11/06/22 12:42 Globulin 3.2 g/dL (1.3-4.6) 11/06/22 12:42 Discharge Plan Discharge Patient Disposition: Placed in Observation Admit Provider: Darci Ruiz Clinical Impression: Congestive heart failure Discharge Diet: Cardiac and Low Salt Discharge Activity: Increase activity as tolerated Coding Level of Care Code ED An Employee Sponsor Or Advocate And for Adan Haro
[2022-11-06 12:52] LABS: Basophils # 0.1 10^3/uL (0.0-0.1); Basophils % 1.3 %; Eosinophils # 0.1 10^3/uL (0.0-0.8); Eosinophils % 1.9 %; Hematocrit 44.3 % (37.0-47.0); Hemoglobin 13.7 g/dL (11.5-15.3); Lymphocytes # 1.9 10^3/uL (0.8-4.8); Lymphocytes % 29.9 %; Mean Corpuscular HGB Conc 30.9 g/dL (30.0-36.0); Mean Corpuscular Hemoglobin 28.7 pg (28.0-34.0); Mean Corpuscular Volume 92.7 fl (81-99); Mean Platelet Volume 9.6 fL (7.4-10.4); Monocytes # 0.5 10^3/uL (0.2-0.9); Monocytes % 8.1 %; Neutrophils # 3.62 10^3/uL (1.8-7.7); Neutrophils % 58.5 %; Nucleated Red Blood Cells % 0 %; Platelet Count 253 10^3/cmm (130-400); Red Blood Count 4.78 10^6/uL (4.1-5.3); Red Cell Distribution Width 14.7 % (12.1-15.1); White Blood Count 6.2 10^3/uL (4.0-10.0)
[2022-11-06 13:12] LABS: Troponin(5th) Baseline 21 ng/L (0-10)
[2022-11-06 13:21] LABS: Alanine Aminotransferase 8 U/L (0-33); Albumin Level 3.9 g/dL (3.5-5.2); Alkaline Phosphatase 47 U/L (35-105); Anion Gap 14.9 (5-19); Aspartate Amino Transferase 18 U/L (0-32); Blood Urea Nitrogen 16 mg/dL (8-23); Calcium 8.8 mg/dL (8.5-10.5); Carbon Dioxide 25 mmol/L (22-29); Chloride 103 mmol/L (98-107); Globulin 3.2 g/dL (1.3-4.6); Glucose 102 mg/dL (65-115); NT Pro B Type Natriuretic Pept 5910 pg/mL (0-450); Osmolality Calculated 289 mOsm/kg (285-295); Potassium 3.9 mmol/L (3.5-5.1); Sodium 139 mmol/L (136-145); Total Bilirubin 0.7 mg/dL (0.15-1.2); Total Protein 7.1 g/dL (6.6-8.7)
--- NOTE | 2022-11-06 14:07 | ECG_ITS ---
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 Measurements Intervals [place] Rate: 56 P: 43 NM: 197 QRS: -27 QRSD: 86 T: 93 QT: 422 QTc: 411 Interpretive Statements SINUS BRADYCARDIA LOW QRS VOLTAGE IN PRECORDIAL LEADS [QRS DEFLECTION < 1.0 mV IN CHEST LEADS] ANTERIOR MYOCARDIAL INFARCTION , PROBABLY RECENT [40+ ms Q WAVE AND/OR ST/T ABNORMALITY IN V3/V4] INFERIOR MYOCARDIAL INFARCTION , POSSIBLY ACUTE [40+ ms Q WAVE AND/OR ST/T ABNORMALITY IN II/aVF] ACUTE [place] Compared to ECG 11/06/2022 12:29:55 No significant changes Electronically Signed On 11-07-2022 10:35:07 CDT by Darci Ruiz M.D. [id number]
--- NOTE | 2022-11-06 14:43 | XACV_ITS ---
Exam Room: ED.ROOM14 Ht: 160 cm Wt: 72 kg BSA: 1.81 m2 Gender: Female : 1945 Any Known Allergies: Other Exam Priority: Routine Procedure(s): Procedure Description: Diagnostic procedure Procedure Description: Left Heart Catheterization Procedure Description: Left ventriculography Procedure Description: Coronary Angiography [place] MARINO; Diagnostic Cath Status: Emergency Diagnostic Findings * INDICATION:77 year old female past medical history of coronary artery disease,s/p PCI of mid LAD in May 2022, ischemic cardiomyopathy, atrial fibrillation on eliquis, carotid stenosis, hypertension who presented to the hospital with worsening shortness of breath. EKG was performed that showed ST elevations in inferior and anterolateral leads with Q waves. STEMI alert was activated from the ER. Patient will be going to cardiac Customer Solutions Supervisor. She denies chest pain. Initial troponin is 21.NT ProBNP is 5910. * Patent prior LAD stent. Non obstructive Coronary artery disease otherwise. * Left main artery: Patent. LAD: Patent prior stent in mid LAD. Apical LAD is occluded and unchanged from before. Left circumflex artery: Patent RCA: Patent. * Coronary angiography shows right dominance. PCI Status: Emergency Conclusions 1. Patent prior LAD stent. Non obstructive Coronary artery disease otherwise. 2. ST elevations persistent from prior SC. Recommendations * Aggressive risk factor modifications. * Continue dual antiplatelet therapy. * She will need diuresis as this volume overloaded. * Outpatient cardiology follow-up in 4 weeks. Interventional RX Recommendation: medical therapy and/or counseling Diagnostic RX Recommendation: medical therapy and/or counseling Pressures Phase:Rest AO : 143 / 90 ( 114 ) @ 4:09:00 PM 133 / 83 ( 106 ) @ 4:13:00 PM 129 / 76 ( 96 ) @ 4:15:00 PM LV : 134 / @ 4:15:00 PM Clinical Evaluation EBL: 5mL-10mL Procedural Details Procedure Consent Obtained. Admit Source: Emergency department. Pre-Procedure Time Out. Identified patient by full name and date of as verbalized by the patient/guarantor. Does the consent match the physician's order: N/A Emergent. Accurate & Complete Informed Consent: N/A Emergent. Inpatient/Outpatient History & Physical on Chart: N/A Emergent. If H&P is completed, is and addenduem needed: N/A Emergent; If yes, is the addendum complete: N/A Emergent. Visualize and Verify Site with Patient/Guarantor: N/A. Relevant Radiology Images available: N/A Emergent. The risks, benefits, and alternatives of sedation and/or procedure were discussed by physician. The patient agrees to continue. Procedure started. Correct patient, site and procedure confirmed by cath team. Current diagnosis: STEMI. PERRLA. 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 Lungs clear x 5 lobes. IV Site on Arrival: 20 gauge in the left anticubital. IV Fluids: 0.9% NaCl at KVO. 0 mL infused prior to labor relations officer. Pre Procedural Pulses: bilateral dorsalis pedis was 2+. Oxygen started at 2liters/min via nasal canula. right radial was prepped with chloroprep then draped in the usual sterile fashion. right groin was prepped with chloroprep then draped in the usual sterile fashion. Physician notified. Baseline sample Acquired. HR: 71 BPM. Physician arrived. Physician scrubbed in. Immediate Pre-Procedure Time Out. Correct Patient: N/A Emergent; Correct Procedure: N/A Emergent; Correct Site: N/A Emergent; Correct Patient Position: N/A Emergent; Correct Supplies: N/A Emergent; Dried Flammable Prep: N/A Emergent; Blood Products Available: N/A Emergent;. Lidocaine 1% infiltrated to the right radial. Unable to obtain radial access. MD attempting to gain access in the Femoral artery. Lidocaine 1% infiltrated to the right groin. Arterial access obtained with micropuncture set. A 5 serbian JL4 catheter in over wire. Multiple views taken of left coronary artery. Catheter out. A 5 serbian JR4 catheter in over wire. Multiple views taken of right coronary artery. EDP Sample taken: LV 134/13,22; HR: 63 BPM; SpO2: 96%. Pullback taken: LV Off; AO Off; Mean: , Peak to Peak: , SEP: ; HR: 62 BPM; SpO2: 96%. A Right femoral angiogram was performed to determine safe placement of closure device. A Angio-Seal VIP ([employer]) was successful obtaining hemostatsis at the Right Femoral artery insertion site. Angioseal exp date 05/25/23 lot # [id number]. PERRLA. 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 No VTE prophylaxis required. Medication's Wasted: Heparin = 1000 units. Medication's Wasted: Other = fentanyl 50mcg. Total IV fluids: 21 mL. Post-op diagnosis: patent prior stent, non obstructive cad. Complications: none. Estimated blood loss: 5mL-10mL. Airway - Unaffected, no intervention required; spontaneous ventilation. Circulation: W/N/L, pulses unchanged. Nausea/Vomiting: No. Procedure completed. Patient transferred by bed to 1st floor. Vital chart was stopped. Access Site Site: Right Femoral artery Sheath Size: 6 Fr Hemostasis Method: Angio-Seal VIP ([employer]) Hemostasis Success: Successful Procedure Medications Start: 3:02 PM Stop: 3:02 PM Medication: Versed Amount: 1 mg Route: I.V. Start: 3:02 PM Stop: 3:02 PM Medication: Fentanyl Amount: 50 mcg Route: I.V. Start: 3:09 PM Stop: 3:09 PM Medication: Versed Amount: 1 mg Route: I.V. I, the attending physician, have reviewed and verified all procedure medications. Yes, all medications given per verbal order Report Signatures Finalized by Darci Ruiz MD on 11/22/2022 10:45 AM
[2022-11-06] MEDS: heparin 5,000 unit/mL INJ 1 mL 4000 UNIT IVP (14:47)
[2022-11-06] MEDS: clopidogrel 300 mg Tablet PO (14:47)
--- NOTE | 2022-11-06 14:53 | PM.HP ---
Providers/Chief Complaint Admitting Physician: Darci Ruiz MD Primary Care Provider: Lisa Nunn DO Chief Complaint: Shortness of breath/ ST elevations History of Present Illness Ilana Lau is a 77 year old female past medical history of coronary artery disease,s/p PCI of mid LAD in May 2022, ischemic cardiomyopathy, atrial fibrillation on eliquis, carotid stenosis, hypertension who presented to the hospital with worsening shortness of breath. According to patient she was told by her PCP office recently because of bleeding concern. She did not take it. EKG was performed that showed ST elevations in inferior and anterolateral leads with Q waves. STEMI alert was activated from the ER. Patient will be going to cardiac Behavioral Health Care Coordinator. She denies chest pain. Initial troponin is 21.NT ProBNP is 5910 Review of Systems Const: Denies: fever(s) or chills Eyes: Denies: change in vision ENMT: Denies: bleeding gums Card: Reports: irregular heart rhythm, dyspnea on exertion and orthopnea; Denies: chest pain, palpitations, swelling of feet/ankles, lightheadedness, syncope or pre-syncope Resp: Reports: dyspnea and wheezing; Denies: hemoptysis or chest congestion GI: Denies: hematochezia : Denies: hematuria Musc: Reports: back pain and joint pain; Denies: neck pain Skin/Breast: Reports: dry skin Neuro: Denies: headache(s) or dizziness Psych: Denies: anxiety or depression Endo: Reports: tired all the time [place]/Lymph: Reports: easy bruising and easy bleeding All/Imm: Denies: seasonal rhinorrhea Medications/Allergies Home Medications Medication Instructions Recorded Confirmed Last Taken Type diphenhydramine 25 1 tab PO BEDTIME PRN sleep/headache 08/05/21 11/06/22 10/12/22 History mg-acetaminophen 500 mg tablet (Tylenol PM Extra Strength) albuterol sulfate 90 mcg/actuation 2 puff inhalation Q6H PRN 06/11/22 11/06/22 11/06/22 History aerosol inhaler Shortness Of Breath fenofibrate 54 mg tablet 54 mg PO QAM 06/11/22 11/06/22 11/06/22 History clopidogrel 75 mg tablet 75 mg PO DAILY #90 tabs 06/19/22 11/06/22 11/05/22 Rx SEE PHARMACY COMMENT alprazolam 0.25 mg tablet 0.25 mg PO BEDTIME PRN Sleep 06/29/22 11/06/22 10/12/22 History furosemide 40 mg tablet (Lasix) 40 mg PO QAM Edema 08/21/22 11/06/22 11/06/22 History amiodarone 200 mg tablet (Pacerone) 200 mg PO QAM 10/08/22 11/06/22 11/06/22 History levothyroxine 50 mcg tablet 50 mcg PO QAM 10/08/22 11/06/22 11/06/22 History Prevagen 1 cap PO QAM 11/06/22 11/06/22 11/06/22 History apixaban 5 mg tablet (Eliquis) 5 mg PO BID@0730,1930 11/06/22 11/06/22 11/06/22 History dapagliflozin 10 mg tablet 10 mg PO QAM 11/06/22 11/06/22 11/06/22 History (Farxiga) hydrocodone 5 mg-acetaminophen 325 1 tab PO Q6H PRN Pain 11/06/22 11/06/22 Unknown History mg tablet metoprolol tartrate 25 mg tablet 12.5 mg PO BID@0730,1930 11/06/22 11/06/22 11/06/22 History polyethylene glycol 3350 17 gram 17 g PO QAM 11/06/22 11/06/22 11/06/22 History oral powder packet potassium chloride 10 mEq 20 meq PO QAM 11/06/22 11/06/22 11/06/22 History tablet,extended release Allergies Allergy/AdvReac Type Severity Reaction Status Date / Time atorvastatin [From Lipitor] Allergy ADR-Muscle Verified 11/06/22 12:18 Pain PFSH Acute PFSH: Medical History Afib Blood in stool Cardiogenic shock Chronic episodic atrial fibrillation Cystocele Diverticulosis Hypertension POP-Q stage 3 rectocele Rectocele Shortness of breath Surgical History AICD (automatic cardioverter/defibrillator) present H/O thyroidectomy H/O total knee replacement right knee H/O: hysterectomy History of colonoscopy with polypectomy 2019 History of tubal ligation Hx of appendectomy Family History Father , unknown age CAD (coronary artery disease) Brother , age unknown Cancer colon Sister Cancer lungs Mother , in late 60s Lung disease Denies family history of Colon cancer Ovarian cancer Diabetes Clotting disorder Hyperlipidemia Chronic kidney disease (CKD) Breast cancer Suicide Anesthesia complication Bleeding disorder Uterine cancer Thyroid condition Stroke Social History Smoking and tobacco status: former smoker Alcohol intake: never Current occupational status: retired Vitals/I&O/Wt Last Vital Signs Temp 96.4 F L 11/06/22 12:07 Pulse 66 11/06/22 14:52 Resp 16 11/06/22 12:07 BP 152/86 11/06/22 14:52 Pulse Ox 95 11/06/22 14:52 O2 Del Method Room Air 11/06/22 14:52 Weight last 48 hrs Weight 158 lb Physical Exam Narrative: GENERAL: Patient is alert, awake and oriented x3. [] NECK: No jugular vein distension. [] HEENT: No cyanosis. No icterus. No pallor. [] HEART: Regular S1 and S2. LUNGS: Diminished breath sounds ABDOMEN: Soft, nontender and nondistended. Positive bowel sounds. No guarding, rebound or tenderness. [] CENTRAL NERVOUS SYSTEM: Grossly nonfocal. [] EXTREMITIES: Lower extremities with 1+ edema bilaterally. Pulses palpable in the lower extremities, both dorsalis pedis and posterior tibial. [] Urinary Catheter Management: Archer: Cath Placed During This Visit: no Data 11/06/22 12:42 11/06/22 12:42 A&P Assessment and plan (1) AICD (automatic cardioverter/defibrillator) present: (2) Afib: (3) Hypertension: (4) STEMI (ST elevation myocardial infarction): (5) Ischemic cardiomyopathy: Plan Patient loaded with aspirin and Plavix. Cardiac Behavioral Health Care Coordinator was emergently activated and patient will be going for coronary angiogram with possible PCI. Risks and benefits of the procedure were discussed. We will hold Eliquis for now. Patient has volume overload. Will need diuresis. Low-sodium diet. Attestations Medical Necessity Statement*: Care expected to cross 2 midnights. Patient has presented with shortness of breath and EKG findings are consistent with STEMI Coding Level of Care Code Acute Code for Chg Fwd Diagnoses AICD (automatic cardioverter/defibrillator) present Z95.810 Afib I48.91 Hypertension I10 STEMI (ST elevation myocardial infarction) I21.3 Ischemic cardiomyopathy I25.5
[2022-11-06] MEDS: FUROsemide 10 mg/mL SDV 4mL 40 MG IVP (16:08)
[2022-11-06] MEDS: metoprolol tartrate 25 mg Tablet 12.5 MG PO (19:50)
[2022-11-07 00:59] VITALS: BP 148/83; PULSE 68; RESP 23; TEMP 36.4; O2SAT 93
[2022-11-07 05:12] LABS: Basophils # 0.1 10^3/uL (0.0-0.1); Basophils % 1.2 %; Eosinophils # 0.1 10^3/uL (0.0-0.8); Eosinophils % 1.5 %; Hematocrit 47.2 % (37.0-47.0); Hemoglobin 14.8 g/dL (11.5-15.3); Lymphocytes # 1.5 10^3/uL (0.8-4.8); Lymphocytes % 23.5 %; Mean Corpuscular HGB Conc 31.4 g/dL (30.0-36.0); Mean Corpuscular Hemoglobin 28.7 pg (28.0-34.0); Mean Corpuscular Volume 91.5 fl (81-99); Mean Platelet Volume 9.7 fL (7.4-10.4); Monocytes # 0.5 10^3/uL (0.2-0.9); Monocytes % 7.7 %; Neutrophils # 4.28 10^3/uL (1.8-7.7); Neutrophils % 65.9 %; Nucleated Red Blood Cells % 0 %; Platelet Count 250 10^3/cmm (130-400); Red Blood Count 5.16 10^6/uL (4.1-5.3); Red Cell Distribution Width 14.6 % (12.1-15.1); White Blood Count 6.5 10^3/uL (4.0-10.0)
[2022-11-07] MEDS: polyethylene glycol 3350 Pkt 17 gm PO (05:12)
[2022-11-07] MEDS: potassium chloride ER 10 mEq Tablet 20 MEQ PO (05:12)
[2022-11-07] MEDS: amiodarone 200 mg Tablet PO (05:12)
[2022-11-07] MEDS: levothyroxine 50 mcg Tablet PO (05:12)
[2022-11-07 05:31] LABS: Anion Gap 15.6 (5-19); Blood Urea Nitrogen 16 mg/dL (8-23); Calcium 9.3 mg/dL (8.5-10.5); Carbon Dioxide 27 mmol/L (22-29); Chloride 101 mmol/L (98-107); Glucose 97 mg/dL (65-115); Osmolality Calculated 291 mOsm/kg (285-295); Potassium 3.6 mmol/L (3.5-5.1); Sodium 140 mmol/L (136-145)
[2022-11-07 05:59] VITALS: PULSE 68
[2022-11-07 06:07] VITALS: BP 131/78; PULSE 70; RESP 23; TEMP 37; O2SAT 94
[2022-11-07] MEDS: metoprolol tartrate 25 mg Tablet 12.5 MG PO ×2 (06:21→19:43)
[2022-11-07 08:00] VITALS: PULSE 68; RESP 18; O2SAT 95
[2022-11-07] MEDS: aspirin 81 mg EC Tablet PO (10:04)
[2022-11-07] MEDS: clopidogrel 75 mg Tablet PO (10:04)
[2022-11-07] MEDS: FUROsemide 10 mg/mL SDV 4mL 40 MG IVP (10:11)
--- NOTE | 2022-11-07 13:15 | PM.PN ---
Subjective Subjective: Patient is doing better. No chest pain. Had coronary angiogram yesterday that showed patent LAD stent and patent coronary arteries. EKG changes persistent from before. Vitals/I&O/Wt Last Vital Signs Temp 98.6 F 11/07/22 06:07 Pulse 68 11/07/22 08:00 Resp 18 11/07/22 08:00 BP 131/78 11/07/22 06:07 Pulse Ox 95 11/07/22 08:00 O2 Del Method Room Air 11/07/22 08:00 11/06/22 11/07/22 11/07/22 22:59 06:59 14:59 Intake Total 580 / 580 660 / 1240 360 / 360 Output Total 750 / 750 200 / 950 Balance -170 / -170 460 / 290 360 / 360 Weight last 48 hrs Weight 148 lb 12.8 oz Weight 158 lb Physical Exam Narrative: GENERAL: Patient is alert, awake and oriented x3. [] NECK: No jugular vein distension. [] HEENT: No cyanosis. No icterus. No pallor. [] HEART: Regular S1 and S2. LUNGS: Diminished breath sounds CENTRAL NERVOUS SYSTEM: Grossly nonfocal. [] EXTREMITIES: Lower extremities with no edema Urinary Catheter Management: Archer: Cath Placed During This Visit: no Data 11/08/22 04:42 11/08/22 04:42 A&P Assessment and plan (1) AICD (automatic cardioverter/defibrillator) present: (2) Afib: (3) Hypertension: (4) STEMI (ST elevation myocardial infarction): (5) Ischemic cardiomyopathy: Plan Coronary angiogram did not reveal significant stenosis and patent LAD stent.Distal LAD is diffusely diseased Continue aspirin and plavix for today. We will resume eliquis tomorrow Continue IV lasix. Close I and Os. Monitor renal function Low-sodium diet. If patient stays stable, patient can be discharged tomorrow. Attestations Medical Necessity Statement*: Care expected to cross 2 midnights. Patient has presented with EKG changes and shortness of breath. Coronary angiogram not showing significant stenosis. Will need diuresis Coding Level of Care Code Acute Code for Chg Fwd Diagnoses AICD (automatic cardioverter/defibrillator) present Z95.810 Afib I48.91 Hypertension I10 STEMI (ST elevation myocardial infarction) I21.3 Ischemic cardiomyopathy I25.5
[2022-11-07 22:00] VITALS: PULSE 65
[2022-11-07 22:15] VITALS: BP 116/66; PULSE 68; RESP 23; TEMP 36.5; O2SAT 93
--- NOTE | 2022-11-08 00:02 | ECG_ITS ---
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 Measurements Intervals [place] Rate: 111 P: 0 VA: 0 QRS: -11 QRSD: 116 T: -46 QT: 360 QTc: 489 Interpretive Statements ATRIAL FIBRILLATION WITH RAPID VENTRICULAR RESPONSE LOW QRS VOLTAGE IN PRECORDIAL LEADS [QRS DEFLECTION < 1.0 mV IN CHEST LEADS] ANTERIOR MYOCARDIAL INFARCTION , PROBABLY RECENT [40+ ms Q WAVE AND/OR ST/T ABNORMALITY IN V3/V4] INFERIOR MYOCARDIAL INFARCTION , PROBABLY RECENT [40+ ms Q WAVE AND/OR ST/T ABNORMALITY IN II/aVF] MARKED ST ELEVATION, CONSIDER LATERAL INJURY [MARKED ST ELEVATION W/O NORMALLY INFLECTED T-WAVE IN I/aVL/V5/V6] ACUTE WI Compared to ECG 11/06/2022 14:20:35 ST (T wave) deviation now present Sinus bradycardia no longer present Myocardial infarct finding still present Electronically Signed On 11-08-2022 11:49:45 CDT by Darci Ruiz M.D. [id number]
--- NOTE | 2022-11-08 00:26 | PC.NURSE ---
11/08/22 0015 - Pt noted to have rhythm change. MD Burgess updated. EKG performed. Per ekg pt in Afib RVR with possible new [place]/ST elevation. Dr. Ruiz called to update. Per Sara this is not new as pt has had chronic elevation for approximately 1 yr. Will continue to monitor per .
[2022-11-08 00:59] VITALS: BP 118/64; PULSE 64; RESP 19; TEMP 36.6; O2SAT 93
[2022-11-08 04:19] VITALS: PULSE 117
[2022-11-08] MEDS: polyethylene glycol 3350 Pkt 17 gm PO (04:47)
[2022-11-08] MEDS: levothyroxine 50 mcg Tablet PO (04:47)
[2022-11-08] MEDS: amiodarone 200 mg Tablet PO (04:47)
[2022-11-08] MEDS: potassium chloride ER 10 mEq Tablet 20 MEQ PO (04:47)
[2022-11-08 05:00] VITALS: BP 92/67; PULSE 90; RESP 20; TEMP 37.1; O2SAT 94
[2022-11-08] MEDS: metoprolol tartrate 25 mg Tablet 12.5 MG PO (05:56)
[2022-11-08 05:57] LABS: Basophils # 0.1 10^3/uL (0.0-0.1); Eosinophils # 0.2 10^3/uL (0.0-0.8); Eosinophils % 2.6 %; Hematocrit 45.3 % (37.0-47.0); Hemoglobin 14.4 g/dL (11.5-15.3); Lymphocytes # 2.2 10^3/uL (0.8-4.8); Mean Corpuscular HGB Conc 31.8 g/dL (30.0-36.0); Mean Corpuscular Hemoglobin 28.6 pg (28.0-34.0); Mean Corpuscular Volume 90.1 fl (81-99); Mean Platelet Volume 9.7 fL (7.4-10.4); Monocytes # 0.6 10^3/uL (0.2-0.9); Monocytes % 9.6 %; Neutrophils # 3.21 10^3/uL (1.8-7.7); Neutrophils % 51.3 %; Nucleated Red Blood Cells % 0 %; Platelet Count 256 10^3/cmm (130-400); Red Blood Count 5.03 10^6/uL (4.1-5.3); Red Cell Distribution Width 14.6 % (12.1-15.1); White Blood Count 6.3 10^3/uL (4.0-10.0)
[2022-11-08 06:31] LABS: Blood Urea Nitrogen 18 mg/dL (8-23); Carbon Dioxide 24 mmol/L (22-29); Chloride 96 mmol/L (98-107); Glucose 90 mg/dL (65-115); Osmolality Calculated 279 mOsm/kg (285-295); Sodium 134 mmol/L (136-145)
[2022-11-08 06:35] LABS: Anion Gap 17.4 (5-19); Potassium 3.4 mmol/L (3.5-5.1)
[2022-11-08 07:51] VITALS: BP 103/60; PULSE 64; RESP 16; TEMP 36.7; O2SAT 96
[2022-11-08 08:00] VITALS: PULSE 70; RESP 16; O2SAT 97
--- NOTE | 2022-11-08 08:42 | P.DS_ITS ---
Discharge Providers Date of Admission: 11/06/22 15:55 Date of Discharge: November 08, 2022 Attending Provider at Admission: Darci Ruiz M.D Attending Provider at Discharge: Darci Ruiz M.D Primary Care Provider: Lisa Nunn DO Diagnoses at Discharge Discharge Diagnosis (1) AICD (automatic cardioverter/defibrillator) present: Status: Acute (2) Afib: Status: Acute (3) Hypertension: Status: Acute (4) Ischemic cardiomyopathy: Status: Acute Reason for Visit Reason for Visit: Shortness of breath/ ST elevations Brief History: 77 year old female past medical history of coronary artery disease,s/p PCI of mid LAD in May 2022,? ischemic cardiomyopathy, atrial fibrillation on eliquis,? carotid stenosis, hypertension who presented to the hospital with worsening shortness of breath.? According to patient she was told by her PCP office recently because of bleeding concern. She did not take it. EKG was performed that showed ST elevations in inferior and anterolateral leads with Q waves.? STEMI alert was activated from the ER.? 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 She denies chest pain.? Initial troponin is 21.NT ProBNP is 5910 Hospital Course Hospital Course Coronary angiogram showed patent prior mid LAD stent. Apical LAD was occluded but it was unchanged from before. Her ST elevations were evidently from her old [place]. Given her volume overload, she was diuresed. She stayed stable and was sent home in a stable condition. Physical Exam Narrative: GENERAL: Patient is alert, awake and oriented x3. [] NECK: No jugular vein distension. [] HEENT: No cyanosis. No icterus. No pallor. [] HEART: Regular S1 and S2. LUNGS: Diminished breath sounds CENTRAL NERVOUS SYSTEM: Grossly nonfocal. [] EXTREMITIES: Lower extremities with no edema Urinary Catheter Management: Archer: Cath Placed During This Visit: no Discharge Data Studies Completed and Pending Completed Studies During Hospitalization Category Date Time Status XR chest 1V portable [id number] Stat Exams 11/06/22 12:07 Completed Pending at discharge Category Date Time Status 21 DEALER request for service Stat Exams 11/06/22 14:43 Taken Basic Metabolic Panel AM LABS Lab 11/09/22 04:00 Ordered Complete Blood Count w/Auto AM LABS Lab 11/09/22 04:00 Ordered Radiology Impressions Chest X-Ray 11/06/22 12:07 IMPRESSION: 1. No acute findings. 2. Cardiac device left anterior chest Laboratory Results WBC 6.3 10^3/uL (4.0-10.0) 11/08/22 04:42 RBC 5.03 10^6/uL (4.1-5.3) 11/08/22 04:42 Hgb 14.4 g/dL (11.5-15.3) 11/08/22 04:42 Hct 45.3 % (37.0-47.0) 11/08/22 04:42 MCV 90.1 fl (81-99) 11/08/22 04:42 MCH 28.6 pg (28.0-34.0) 11/08/22 04:42 MCHC 31.8 g/dL (30.0-36.0) 11/08/22 04:42 RDW 14.6 % (12.1-15.1) 11/08/22 04:42 Plt Count 256 10^3/cmm (130-400) 11/08/22 04:42 MPV 9.7 fL (7.4-10.4) 11/08/22 04:42 Neut % (Auto) 51.3 % 11/08/22 04:42 Lymph % (Auto) 35.0 % 11/08/22 04:42 [place] % (Auto) 9.6 % 11/08/22 04:42 Eos % (Auto) 2.6 % 11/08/22 04:42 Baso % (Auto) 1.0 % 11/08/22 04:42 Neut # (Auto) 3.21 10^3/uL (1.8-7.7) 11/08/22 04:42 Lymph # (Auto) 2.2 10^3/uL (0.8-4.8) 11/08/22 04:42 [place] # (Auto) 0.6 10^3/uL (0.2-0.9) 11/08/22 04:42 Eos # (Auto) 0.2 10^3/uL (0.0-0.8) 11/08/22 04:42 Baso # (Auto) 0.1 10^3/uL (0.0-0.1) 11/08/22 04:42 Nucleated RBC % (auto) 0 % 11/08/22 04:42 Nucleated RBCs # 0.0 /100WBC 11/08/22 04:42 Sodium 134 mmol/L (136-145) L 11/08/22 04:42 Potassium 3.4 mmol/L (3.5-5.1) L 11/08/22 04:42 Chloride 96 mmol/L (98-107) L 11/08/22 04:42 Carbon Dioxide 24 mmol/L (22-29) 11/08/22 04:42 Anion Gap 17.4 (5-19) 11/08/22 04:42 BUN 18 mg/dL (8-23) 11/08/22 04:42 Creatinine 1.1 mg/dL (0.5-0.9) H 11/08/22 04:42 GFR Calculation Not Reportable 11/08/22 04:42 Glucose 90 mg/dL (65-115) 11/08/22 04:42 Calculated Osmolality 279 mOsm/kg (285-295) L 11/08/22 04:42 Calcium 9.0 mg/dL (8.5-10.5) 11/08/22 04:42 Total Bilirubin 0.7 mg/dL (0.15-1.2) 11/06/22 12:42 AST 18 U/L (0-32) 11/06/22 12:42 ALT 8 U/L (0-33) 11/06/22 12:42 Alkaline Phosphatase 47 U/L (35-105) 11/06/22 12:42 Troponin T Baseline 21 ng/L (0-10) H 11/06/22 12:42 NT-Pro-B Natriuret Pep 5910 pg/mL (0-450) H 11/06/22 12:42 Total Protein 7.1 g/dL (6.6-8.7) 11/06/22 12:42 Albumin 3.9 g/dL (3.5-5.2) 11/06/22 12:42 Globulin 3.2 g/dL (1.3-4.6) 11/06/22 12:42 Vitals Last Vital Signs Temp 98.1 F 11/08/22 07:51 Pulse 70 11/08/22 08:00 Resp 16 11/08/22 08:00 BP 103/60 11/08/22 07:51 Pulse Ox 97 11/08/22 08:00 O2 Del Method Room Air 11/08/22 08:00 Discharge Plan Discharge Patient Disposition: Home Condition: Stable Prescriptions: Continued alprazolam 0.25 mg tablet 0.25 mg PO BEDTIME PRN (Reason: Sleep) diphenhydramine-acetaminophen [Tylenol PM Extra Strength] 25-500 mg Tablet 1 tab PO BEDTIME PRN (Reason: sleep/headache) fenofibrate 54 mg tablet 54 mg PO QAM albuterol sulfate 90 mcg/actuation HFA aerosol inhaler 2 puff INHALATION Q6H PRN (Reason: Shortness Of Breath) clopidogrel 75 mg Tablet 75 mg PO DAILY Qty: 90 0RF Rx Instructions: (DCED 11/05/22) levothyroxine 50 mcg Tablet 50 mcg PO QAM amiodarone [Pacerone] 200 mg tablet 200 mg PO QAM Farxiga 10 mg tablet 10 mg PO QAM Prevagen 1 cap PO QAM polyethylene glycol 3350 17 gram powder in packet 17 g PO QAM potassium chloride 10 mEq tablet extended release 20 meq PO QAM Rx Instructions: take it with the Lasix metoprolol tartrate 25 mg tablet 12.5 mg PO BID@0730,1930 Eliquis 5 mg tablet 5 mg PO BID@0730,1930 Changed Lasix 40 mg tablet 60 mg PO QAM Qty: 120 0RF Discharge Orders: Discharge Order (Routine); Ordered 11/08/22 Ordered By: Darci Ruiz Referrals: Manuela Street FNP [Nurse Practitioner] - 11/16/22 10:15 am Lisa Nunn DO [Primary Care Provider] - (Please call Dr. Nunn's Office on Wednesday at [phone] to schedule a follow up appointment for 7-10 d ays. Thank you.) Discharge Diet: Cardiac and Low Salt Discharge Activity: Increase activity as tolerated Patient Instructions: Furosemide (By mouth) (Lasix), Heart Catheterization (DC), Inferior Vena Cava (IVC) Filter Placement (DC), Opioid Safety, Post Angiogram Home Care Instructions Discharge Attestations Time Spent in Discharge Care*: greater than 30 min Status at Discharge: Cognitive status at discharge: cognitively intact , Behavioral status at discharge: cooperative , Quality Metrics Clinical Quality Measures [ No reported AMI, CVA or VTE this stay] Coding Level of Care Code Acute Code for Chg Fwd Diagnoses AICD (automatic cardioverter/defibrillator) present Z95.810 Afib I48.91 Hypertension I10 Ischemic cardiomyopathy I25.5
[2022-11-08] MEDS: aspirin 81 mg EC Tablet PO (09:10)
[2022-11-08] MEDS: clopidogrel 75 mg Tablet PO (09:10)
[2022-11-08 09:30] VITALS: BP 105/55; PULSE 67; RESP 15; O2SAT 94
--- NOTE | 2022-11-08 09:39 | PC.NURSE ---
IV removed, education provided and family and patient verbalized understand on education and medications changes. patient changing clothes and wheeled with family to private vehicle.
== END 2022-11-08 09:55 | disposition home or self-care (01) ==
LOC: ER 12:46 → CSU 16:11
PROVIDERS: Admitting Provider Internal Medicine; Emergency Provider Family Medicine; PCP Family Medicine; Visit Provider Internal Medicine
DX: I11.0 Hypertensive heart disease with heart failure (principal); I50.9 Heart failure, unspecified; I25.5 Ischemic cardiomyopathy; I48.91 Unspecified atrial fibrillation; I21.3 ST elevation (STEMI) myocardial infarction of unspecified site; I25.10 Atherosclerotic heart disease of native coronary artery without angina pectoris; Z79.01 Long term (current) use of anticoagulants; Z87.891 Personal history of nicotine dependence; Z95.810 Presence of automatic (implantable) cardiac defibrillator; Z82.49 Family history of ischemic heart disease and other diseases of the circulatory system
CPT/HCPCS: 36415; 71045; 80048; 80053; 83880; 84484; 85025; 93005; 93458; 96374; 96375; 96376; 99152; 99153; 99285; C1760; C1769; C1887; C1894; G0269; G0378; J1644; J1940; J2250; J3010; Q9967

== ENCOUNTER → 2022-11-16 10:26 | Outpatient (BNVA) | payer MEDICARE, MEDICAID, SELFPAY | PROVIDERS: PCP Family Medicine; Visit Provider Nurse Practitioner Family | DX: I11.0 Hypertensive heart disease with heart failure (principal); I50.9 Heart failure, unspecified; I25.10 Atherosclerotic heart disease of native coronary artery without angina pectoris; I25.2 Old myocardial infarction; I48.91 Unspecified atrial fibrillation; Z95.810 Presence of automatic (implantable) cardiac defibrillator; Z87.891 Personal history of nicotine dependence; Z79.01 Long term (current) use of anticoagulants | CPT/HCPCS: 36415; 80048; 83880; 99214 ==

== ENCOUNTER 2022-12-24 12:24 | Outpatient (RCR) | payer MEDICARE, MEDICAID, SELFPAY | END 2023-01-22 23:59 | disposition home or self-care (01) | LOC: CR 12:24 | PROVIDERS: Absent Provider Family Medicine; PCP Family Medicine; Referring Provider Internal Medicine; Visit Provider Internal Medicine | DX: I25.10 Atherosclerotic heart disease of native coronary artery without angina pectoris (principal) | CPT/HCPCS: 93798 ==

== ENCOUNTER → 2023-02-18 14:04 | Outpatient (BNVA) | payer MEDICARE, MEDICAID, SELFPAY | PROVIDERS: PCP Family Medicine; Visit Provider Internal Medicine | DX: I48.91 Unspecified atrial fibrillation (principal); Z79.01 Long term (current) use of anticoagulants; I25.5 Ischemic cardiomyopathy; I11.0 Hypertensive heart disease with heart failure; I50.9 Heart failure, unspecified; Z87.891 Personal history of nicotine dependence | CPT/HCPCS: 99214 ==

== ENCOUNTER → 2023-03-04 09:49 | Outpatient (BNVA) | payer MEDICARE, MEDICAID, SELFPAY | PROVIDERS: PCP Family Medicine; Visit Provider Internal Medicine | DX: Z45.02 Encounter for adjustment and management of automatic implantable cardiac defibrillator (principal) | CPT/HCPCS: 93296 ==

== ENCOUNTER → 2023-05-10 14:08 | Outpatient (BNVA) | payer MEDICARE, MEDICAID, SELFPAY | PROVIDERS: PCP Family Medicine; Visit Provider Family Medicine | DX: E03.9 Hypothyroidism, unspecified (principal); I25.10 Atherosclerotic heart disease of native coronary artery without angina pectoris; I48.91 Unspecified atrial fibrillation; I10 Essential (primary) hypertension; R07.89 Other chest pain; Z79.899 Other long term (current) drug therapy | CPT/HCPCS: 80061; 84443; 85025 ==

== ENCOUNTER → 2023-05-24 12:14 | Outpatient (BNVA) | payer MEDICARE, MEDICAID, SELFPAY | PROVIDERS: PCP Family Medicine; Visit Provider Clinical Nurse Specialist Adult Health | DX: I10 Essential (primary) hypertension (principal) | CPT/HCPCS: 80053 ==

== ENCOUNTER 2023-08-03 09:10 | Outpatient (CLI) | payer MEDICARE, MEDICAID, SELFPAY ==
--- NOTE | 2023-08-03 09:16 | XR_ITS ---
WS: [id number] XR chest 2V* [id number] REASON FOR EXAM: CHRONIC COMBINED SYSTOLIC DIASTOLIC CHF FINDINGS: Chest is unchanged compared to 11/06/2022. Cardiac device left chest wall with left subclavian vein lead to the right ventricular apex. Previous placement of coronary artery stents. Significant cardiomegaly. Chronic blunting of the costophrenic angles. No acute pulmonary parenchymal abnormality. IMPRESSION: Stable chest without acute abnormality as above.
== END 2023-08-03 09:11 | disposition home or self-care (01) ==
LOC: RAD 09:11
PROVIDERS: Absent Provider Internal Medicine; Visit Provider Nurse Practitioner Family
DX: I50.42 Chronic combined systolic (congestive) and diastolic (congestive) heart failure (principal)
CPT/HCPCS: 71046

== ENCOUNTER → 2023-08-19 14:54 | Outpatient (BNVA) | payer MEDICARE, MEDICAID, SELFPAY | PROVIDERS: Visit Provider Internal Medicine | DX: I48.91 Unspecified atrial fibrillation (principal); Z79.01 Long term (current) use of anticoagulants; I25.5 Ischemic cardiomyopathy; I11.0 Hypertensive heart disease with heart failure; I50.9 Heart failure, unspecified; Z87.891 Personal history of nicotine dependence | CPT/HCPCS: 99214 ==

== ENCOUNTER → 2023-09-01 16:07 | Outpatient (BNVA) | payer MEDICARE, MEDICAID, SELFPAY | PROVIDERS: Visit Provider Internal Medicine | DX: Z45.02 Encounter for adjustment and management of automatic implantable cardiac defibrillator (principal) | CPT/HCPCS: 93296 ==

== ENCOUNTER 2023-11-16 12:37 | Observation (INO) | payer MEDICARE, MEDICAID, SELFPAY ==
--- NOTE | 2023-11-11 08:30 | ECG_ITS ---
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 Measurements Intervals [place] Rate: 54 P: 39 [place]: 234 QRS: -28 QRSD: 80 T: 196 QT: 425 QTc: 406 Interpretive Statements SINUS BRADYCARDIA WITH FIRST DEGREE AV BLOCK INFERIOR MYOCARDIAL INFARCTION , POSSIBLY ACUTE [40+ ms Q WAVE AND/OR ST/T ABNORMALITY IN II/aVF] ANTEROSEPTAL MYOCARDIAL INFARCTION , AGE INDETERMINATE Compared to ECG 11/08/2022 00:09:30 First degree AV block now present Atrial fibrillation no longer present ST (T wave) deviation no longer present Myocardial infarct finding still present Electronically Signed On 11-11-2023 11:49:21 CDT by Darci Ruiz M.D. [id number]
[2023-11-11 08:51] LABS: Basophils # 0.1 10^3/uL (0.0-0.1); Eosinophils % 0.7 %; Hematocrit 51.2 % (36-47); Lymphocytes # 1.5 10^3/uL (0.8-4.8); Lymphocytes % 33.2 %; Mean Corpuscular HGB Conc 30.9 g/dL (30-55); Mean Corpuscular Hemoglobin 28.6 pg (27-33); Mean Corpuscular Volume 92.8 fl (85-98); Mean Platelet Volume 9.8 fL (7.4-10.4); Monocytes # 0.4 10^3/uL (0.2-0.9); Monocytes % 8.2 %; Neutrophils # 2.57 10^3/uL (1.8-7.7); Neutrophils % 55.7 %; Nucleated Red Blood Cells % 0 %; Platelet Count 252 10^3/cmm (157-399); Red Blood Count 5.52 10^6/uL (3.85-5.65); Red Cell Distribution Width 14.6 % (12.1-15.1); White Blood Count 4.61 10^3/uL (3.29-11.43)
[2023-11-11 09:06] LABS: Alanine Aminotransferase 13 U/L (0-33); Alkaline Phosphatase 44 U/L (35-105); Anion Gap 13.2 (5-19); Aspartate Amino Transferase 26 U/L (0-32); Blood Urea Nitrogen 28 mg/dL (8-23); Calcium 9.5 mg/dL (8.5-10.5); Carbon Dioxide 27 mmol/L (22-29); Chloride 106 mmol/L (98-107); Globulin 3.2 g/dL (1.3-4.6); Glucose 135 mg/dL (65-115); Osmolality Calculated 302 mOsm/kg (285-295); Potassium 4.2 mmol/L (3.5-5.1); Sodium 142 mmol/L (136-145); Total Bilirubin 0.6 mg/dL (0.15-1.2); Total Protein 7.2 g/dL (6.6-8.7)
--- NOTE | 2023-11-11 09:11 | ANES.PREANE2 ---
Pre-Anesthetic Assessment Height/Weight: Height 1.6 m Preop Diagnosis: Rectocele stage III Operation Date: 11/16/23 11:15 Proposed Procedures p Posterior colporrhaphy 64786, Sacrospinous fixation 62093, N81.6(Not Applicable) - Jorge Ramirez MD s Sacrospinous Ligament Suspension(Not Applicable) - Jorge Ramirez MD Social No alcohol and No tobacco Exam alert, oriented x 3, clear to auscultation bilaterally and regular rate & rhythm no complaints Airway Submandibular: within normal limits Cervical ROM: within normal limits Mallampati: Class I CV/HEM Atrial Fibrillation (history) and Congestive Heart Failure EF 20-25% None reported Hepatic None reported GI None reported Metabolic None reported Anesthetic Plan ASA status: 4 Anesthesia: Choice Other: spinal vs general if off eliquis appropriate. Defib in place with LVEF 20-25% Medications/Allergies Home Medications Medication Instructions Recorded Confirmed Last Taken Type diphenhydramine 25 1 tab PO BEDTIME PRN sleep/headache 08/05/21 11/11/23 10/12/22 History mg-acetaminophen 500 mg tablet (Tylenol PM Extra Strength) albuterol sulfate 90 mcg/actuation 2 puff inhalation Q6H PRN 06/11/22 11/11/23 11/10/23 History aerosol inhaler Shortness Of Breath polyethylene glycol 3350 17 gram 17 g PO QAM 11/06/22 11/11/23 11/11/23 History oral powder packet potassium chloride 10 mEq 10 meq PO BID #180 tabs 04/07/23 11/11/23 11/11/23 Rx tablet,extended release clopidogrel 75 mg tablet 75 mg PO DAILY #90 tabs 05/10/23 11/11/23 11/11/23 Rx dapagliflozin propanediol 10 mg 10 mg PO QAM #90 tabs 05/10/23 11/11/23 11/11/23 Rx tablet (Farxiga) fenofibrate 54 mg tablet 54 mg PO QAM #90 tabs 05/10/23 11/11/23 11/11/23 Rx apixaban 5 mg tablet (Eliquis) 5 mg PO BID@0730,1930 #180 tabs 05/13/23 11/11/23 11/11/23 Rx benzonatate 100 mg capsule 100 mg PO TID PRN cough #45 caps 05/24/23 11/11/23 Unknown Rx furosemide 40 mg tablet (Lasix) 60 mg (1.5 x 40 mg) PO QAM Edema 08/02/23 11/11/23 11/11/23 Rx #90 tabs metoprolol succinate 25 mg 25 mg PO DAILY 08/19/23 11/11/23 11/11/23 History tablet,extended release 24 hr sacubitril 24 mg-valsartan 26 mg 1 tab PO BID #180 tabs 08/19/23 11/11/23 11/11/23 Rx tablet (Entresto) alprazolam 0.25 mg tablet 0.25 mg PO BEDTIME PRN Sleep #30 11/11/23 11/11/23 11/10/23 Rx tabs amiodarone 200 mg tablet 200 mg PO DAILY 11/11/23 11/11/23 11/11/23 History levothyroxine 100 mcg tablet 100 mcg PO DAILY 11/11/23 11/11/23 11/11/23 History Allergies Allergy/AdvReac Type Severity Reaction Status Date / Time atorvastatin [From Lipitor] Allergy ADR-Muscle Verified 11/08/23 13:46 Pain PFSH Anesthesia Medical History Hypothyroid Coronary artery disease Cardiogenic shock Congestive heart failure Blood in stool POP-Q stage 3 rectocele Rectocele Cystocele Diverticulosis Chronic episodic atrial fibrillation Afib Shortness of breath Hypertension Surgical History AICD (automatic cardioverter/defibrillator) present History of colonoscopy with polypectomy 2018 H/O total knee replacement right knee History of tubal ligation Hx of appendectomy H/O: hysterectomy H/O thyroidectomy Family History Father , unknown age CAD (coronary artery disease) Brother , age unknown Cancer colon Sister Cancer lungs Mother , in late 60s Lung disease Denies family history of Colon cancer Ovarian cancer Diabetes Clotting disorder Hyperlipidemia Chronic kidney disease (CKD) Breast cancer Suicide Anesthesia complication Bleeding disorder Uterine cancer Thyroid disease Stroke Social History Smoking and tobacco/nicotine status: former use of tobacco/nicotine Alcohol intake: never Substance/Drug Use: never Current occupational status: retired Data Anesthesia 11/11/23 08:29 11/11/23 08:29 Short CBC 11/11/23 Range/Units 08:29 WBC 4.61 (3.29-11.43) 10^3/uL Hgb 15.80 (11.27-16.99) g/dL Hct 51.2 H (36-47) % MCV 92.8 (85-98) fl Plt Count 252 (157-399) 10^3/cmm Neut % (Auto) 55.7 % Neut # (Auto) 2.57 (1.8-7.7) 10^3/uL BMP 11/11/23 08:29 Sodium 142 Potassium 4.2 Chloride 106 Carbon Dioxide 27 BUN 28 H Creatinine 1.3 H Glucose 135 H Calcium 9.5 Liver Function 11/11/23 Range/Units 08:29 Total Bilirubin 0.6 (0.15-1.2) mg/dL AST 26 (0-32) U/L ALT 13 (0-33) U/L Alkaline Phosphatase 44 (35-105) U/L Albumin 4.0 (3.5-5.2) g/dL Cardiac Studies: Echocardiogram 08/05/21 Echocardiogram Limited Views 09/07/22 Echocardiogram Ultrasound 10/25/20 Sestamibi Stress Test (Cardiology) 10/28/20
[2023-11-11 10:31] LABS: Add Urine Microscopic? YES; Bilirubin Urine Neg (Negative); Blood Urine 2+ (Negative); Glucose Urine UA 4+ (Normal); Ketones Urine Negative (Negative); Leukocyte Esterase Urine Negative (Negative); Nitrate Urine Negative (Negative); Protein Urine Neg (Negative); Urine Appearance Clear (CLEAR); Urine Color Yellow (Yellow); Urobilinogen Urine Norm (Negative); pH Urine 5 (5-7)
[2023-11-11 10:32] LABS: Add Urine Culture? No; Bacteria Urine 1+ /hpf; RBC Urine 0-4 /hpf (0-2); WBC Urine 0-4 /hpf (0-5)
[2023-11-16] VITALS (19 sets, daily range): BP systolic 90–120; BP diastolic 48–71; PULSE 47–65; RESP 14–20; TEMP 36.3–36.9; O2SAT 91–99; BMI 24.7
[2023-11-16 08:19] LABS: Glucose Point of Care 78 mg/dL (70-110)
[2023-11-16] MEDS: scopolamine 1.5 Patch 1 PATCH TRANSDERMA (08:23)
[2023-11-16] MEDS: enoxaparin 40 mg/0.4 mL Syringe SUBCUT (08:23)
[2023-11-16] MEDS: sodium chloride 0.9% 1,000 ML 30 ML IV (08:23)
--- NOTE | 2023-11-16 09:05 | W.PM.OPSUD ---
Surgery/Procedure H&P Update DATE OF PROCEDURE: November 16, 2023 DATE H&P PERFORMED: 11/08/23 H&P UPDATE INFORMATION: I have reviewed H&P completed within last 30 days, I have examined patient prior to procedure and No changes to prior documentation PREOP DIAGNOSIS: Rectocele stage III PLANNED PROCEDURE: Operation Date: 11/16/23 09:15 Proposed Procedures p Posterior colporrhaphy 65280, Sacrospinous fixation 50585, N81.6(Not Applicable) - Jorge Ramirez MD s Sacrospinous Ligament Suspension(Not Applicable) - Jorge Ramirez MD
--- NOTE | 2023-11-16 09:32 | P.ANESUD_ITS ---
Pre-Anesthetic Update Pre-Anesthetic Assessment: Date of Surgery/Procedure: 11/16/23 Preop Frances gnosis: Rectocele stage III Proposed Procedure: Operation Date: 11/16/23 09:15 Proposed Procedures p Posterior colporrhaphy 11592, Sacrospinous fixation 05711, N81.6(Not Applicable) - Jorge Ramirez MD s Sacrospinous Ligament Suspension(Not Applicable) - Jorge Ramirez MD Any changes to Pre-Anesthetic Assessment?: No Last Intake: Intake Last Liquid Date 11/15/23 Last Liquid Time 18:00 Last Solid Date 11/15/23 Last Solid Time 18:00 Labs Last 48hrs: Blood Bank 11/16/23 08:10 Blood Type A Negative Rho(D) Type Rh negative Antibody Screen Negative Vitals: Temperature 98.4 F 11/16/23 07:50 Temperature Source Temporal Artery S can 11/16/23 07:50 Pulse Rate 65 11/16/23 07:50 Respiratory Rate 17 11/16/23 07:50 Blood Pressure 119/71 11/16/23 07:50 Blood Pressure Shanta n 87 11/16/23 07:50 Pulse Oximetry 96 11/16/23 07:50 Oxygen Delivery Me thod Room Air 11/16/23 07:51 Exam: Pre-Anes Outpt Exam: alert, oriented x 3, clear to auscultation bilaterally and regular rate & rhythm Cardiac Studies: Echocardiogram 08/05/21 Echocardiogram Limited Views 09/07/22 Echocardiogram Ultrasound 10/25/20 Sestamibi Stress Test (Cardiology) 10/28
[2023-11-16] MEDS: ceFAZolin 2,000 MG in sodium chloride 0.9% (plus) 50 ML 100 MG IV (09:46)
[2023-11-16] MEDS: lidocaine-epi 2% PF 1:200,000 20 mL SDV INJECTION (10:20)
--- NOTE | 2023-11-16 11:24 | P.OP_ITS ---
Operative Report Date of procedure: November 16, 2023 Pre-op diagnosis: Rectocele Post-op diagnosis: same Procedure done: Posterior colporrhaphy Sacrospinous fixation Specimens removed/disposition: None Surgeon: Jorge Ramirez MD Estimated blood loss (mL): 20 IV fluids (mL): 800 Urine output (mL): 300 Procedure: After obtaining informed consent, the patient was taken to the operating room a nd placed in the supine position, given general anesthesia, and prepped and draped in sterile fashion. The abdomen, vulva and vagina were prepped and draped in a sterile manner. A time out procedure was performed. A Archer catheter was placed. A galaxy retractor was used to retract labia and vaginal mucosa. A dilute 2% lidocaine with epinephrine solution was infiltrated under the posterior vaginal mucosa midline and into the perineal body. A dia skin incision was cut in the perineum. The posterior vaginal wall was opened vertically and midline up to the apex of the rectocele. The cut edges were held and splayed laterally with a series of Allis clamps. The open vaginal mucosa was then dissected laterally with a combination of sharp and blunt dissection. A finger is inserted through the incision in the posterior vaginal mucosa, dissecting out the rectovaginal space (RVS). The right rectal pillar (RRP) is identified. The rectal pillar can be bluntly perforated either with the [finger or with the tip of a long Mary clamp]. A [Breisky-Navratil] retractor is used for exposing the rectovaginal space in order to enter the pararectal space with retraction of the cardinal ligament, vagina, and rectum. Displacing the rectum to the left and the cardinal ligament and ureter anteriorly. A sponge dissector is used to bluntly dissect the sacrospinous ligament removing areolar tissue. Th e ischial spine was palpated directly, and a area approximately 2 cm medial to the spine was selected for insertion of the Anchorsure transvaginal sacrospinous fixation system. One end of the suture of Anchoresure system inserted through the sacrospinous ligament is placed through the muscular layer of the vagina. In a similar manner, the second suture is placed. The opposite end of the suture in the sacrospinous ligament is left free and held on a small hemostat. Then traction on this suture will draw the vaginal vault directly to the ligament, where a square knot affixes it to the sacrospinous ligament. After the everardo stich is tied the second safety stitch is tied. Then the colporrhaphy repair is carried out in routine fashion. The perirectal fascia was then reapproximated with interrupted #2-0 Vicryl sutures to draw the lateral folds together and tuck the rectocele back. Deep interrupted sutures of #0 Vicryl were used to reapproximate the fibers of the levator ani muscles. The excess vaginal mucosa was trimmed. The posterior vaginal wall was closed with a running locked 2-0 Vicryl to the hymenal tags. The perineal skin was closed with running subcuticular #2-0 Vicryl. Excellent hemostasis was obtained. A vaginal pack is placed overnight as postoperative support for the vaginal tissues after graft placement and closure of vaginal incisions. Sponge, lap, needle, and instrument counts were correct times three. The patient was taken to the recovery room, awake and in stable condition.
--- NOTE | 2023-11-16 12:38 | SUR.EXTENDED ---
1238-Report was called to RN on Med Surg. All questions answered.
--- NOTE | 2023-11-16 12:50 | ANE.PACU2 ---
Inpatient post-anesthesia follow up: Airway intact: Yes Vital signs: Temperature 97.7 F Pulse Rate 54 Respiratory Rate 19 Blood Pressure 111/59 Pulse Oximetry 96 Oxygen Delivery Me thod Room Air Oxygen Flow Rate 2 Fraction of Inspir ed Oxygen Hydration adequate: Yes Nausea and vomiting: No Pain level: 1 Mental status: Baseline
[2023-11-16] MEDS: clopidogrel 75 mg Tablet PO (13:43)
[2023-11-16] MEDS: ketorolac 30 mg/mL INJ IVP ×3 (13:44→23:57)
[2023-11-16] MEDS: dextrose 5%-lactated ringers 1,000 ML 125 ML IV ×2 (13:44→21:53)
[2023-11-16] MEDS: docusate sodium 100 mg Capsule PO (17:28)
[2023-11-16] MEDS: apixaban 5 mg Tablet PO (18:37)
--- NOTE | 2023-11-17 00:53 | PC.NURSE ---
Pt is having hallucinations stating she is seeing spiders on the ceiling and all over the room. Pt is beginning to get confused. Dr. Ramirez notified and ordered a CBC to be collected.
[2023-11-17 01:25] LABS: Basophils % 0.1 %; Lymphocytes # 0.7 10^3/uL (0.8-4.8); Lymphocytes % 7.6 %; Mean Corpuscular HGB Conc 31.5 g/dL (30-55); Mean Corpuscular Hemoglobin 28.5 pg (27-33); Mean Corpuscular Volume 90.6 fl (85-98); Mean Platelet Volume 9.8 fL (7.4-10.4); Monocytes # 0.4 10^3/uL (0.2-0.9); Monocytes % 4.6 %; Neutrophils # 8.44 10^3/uL (1.8-7.7); Neutrophils % 87.5 %; Nucleated Red Blood Cells % 0 %; Platelet Count 201 10^3/cmm (157-399); Red Blood Count 5.19 10^6/uL (3.85-5.65); Red Cell Distribution Width 14.5 % (12.1-15.1); White Blood Count 9.64 10^3/uL (3.29-11.43)
[2023-11-17 04:39] VITALS: BP 123/70; PULSE 57; RESP 18; TEMP 36.4; O2SAT 96
--- NOTE | 2023-11-17 05:42 | PC.NURSE ---
Removed vaginal packing and galloway catheter. Vaginal packing 75% saturated with spotting noted on sheet.
[2023-11-17 05:45] LABS: Hematocrit 45.4 % (36-47); Mean Corpuscular HGB Conc 31.9 g/dL (30-55); Mean Corpuscular Hemoglobin 29.1 pg (27-33); Mean Corpuscular Volume 91.2 fl (85-98); Mean Platelet Volume 10.6 fL (7.4-10.4); Platelet Count 232 10^3/cmm (157-399); Red Blood Count 4.98 10^6/uL (3.85-5.65); Red Cell Distribution Width 14.6 % (12.1-15.1); White Blood Count 11.19 10^3/uL (3.29-11.43)
[2023-11-17] MEDS: FUROsemide 40 mg Tablet 60 MG PO (05:49)
[2023-11-17] MEDS: polyethylene glycol 3350 Pkt 17 gm PO (05:49)
[2023-11-17] MEDS: ketorolac 30 mg/mL INJ IVP (05:50)
[2023-11-17] MEDS: apixaban 5 mg Tablet PO ×2 (06:30→18:45)
--- NOTE | 2023-11-17 06:56 | PC.NURSE ---
Pt was alert and oriented x4 at the beginning of shift. Throughout the night, pt progressively became more confused and began having hallucinations that included spiders and gardens. Pt climbed out of bed multiple times to try and kill these spiders. Notifed Dr. Ramirez for the 2nd time and he consulted Dr. Seaman. Dr. Seaman came and saw the pt. Dr. Seaman states the pt is alert and oriented x4 and probably just .This nurse went into room to reassess pt and the pt is still confused and only oriented to self.
--- NOTE | 2023-11-17 07:17 | CT_ITS ---
WS: [id number] CT HEAD NONCONTRAST HISTORY: hallucinations, confusion TECHNIQUE: Contiguous axial imaging performed through the brain in 2.5 mm imaging. Bone and soft tiss ue windows. Sagittal and coronal reformats reviewed. All CT scans at [facility] use at least one of these dose optimization techniques: automated exposure control; mA and/or kV adjustment per pa tient size (includes targeted exams where dose is matched to clinical indication); or iterative recon struction. DLP: 1059.30 mGy.cm COMPARISON: 12/09/2020 No acute intracranial hemorrhage, midline shift or mass effect. Mild atrophy and mild small vessel ischemic disease. No infarct. Ventricles: Normal size with no hydrocephalus. No inferior displacement of the cerebellar tonsils. Paranasal sinuses: Small mucous retention cyst in the floor the LEFT maxillary sinus. Mastoid air cells: Well pneumatized. Calvarium and scalp: Skull is intact with no soft tissue edema or swelling. IMPRESSION: 1. No acute intracranial hemorrhage or edema. 2. Mild atrophy and mild small vessel ischemic disease.
--- NOTE | 2023-11-17 07:25 | P.CONIM_ITS ---
Providers/Reason For Consult 2 Consulting Physician/Specialty*: Curtis Stone MD, hospitalist Reason for Consult*: Delirium Requesting Physician: Dr. Ramirez Attending Physician: Jorge Ramirez MD History of Present Illness History of Present Illness Ilana Lau is a 78 year old female who presented yesterday secondary to rectocele and underwent a posterior colporrhaphy without incident. I am been asked to see her secondary to hallucinations, and confusion. There has not been any focal deficits. Family is present in the room, who reports has been going on all night and she has not been able to sleep. She tosses and turns, seems to see some things that are not there, and is confused. Family member present, did not know her particular baseline. When I talked with her daughter she reports she has had some significant confusion and will often forget what she is going to say midsentence. She relates that with once per surgery she had hallucinations and confusion for 12 hours or so. Her daughter suspects she has dementia. Patient herself denies any pain. She is conversational, but obviously confused. Review of Systems 2 General: Reports: ROS unobtainable due to mental status Medications/Allergies Home Medications Medication Instructions Recorded Confirmed Last Taken Type diphenhydramine 25 1 tab PO BEDTIME PRN sleep/headache 08/05/21 11/11/23 10/12/22 History mg-acetaminophen 500 mg tablet (Tylenol PM Extra Strength) albuterol sulfate 90 mcg/actuation 2 puff inhalation Q6H PRN 06/11/22 11/16/23 11/15/23 History aerosol inhaler Shortness Of Breath polyethylene glycol 3350 17 gram 17 g PO QAM 11/06/22 11/16/23 11/15/23 History oral powder packet (Miralax) clopidogrel 75 mg tablet 75 mg PO DAILY #90 tabs 05/10/23 11/11/23 11/08/23 Rx dapagliflozin propanediol 10 mg 10 mg PO QAM #90 tabs 05/10/23 11/16/23 11/15/23 08:00 Rx tablet (Farxiga) fenofibrate 54 mg tablet 54 mg PO QAM #90 tabs 05/10/23 11/16/23 11/15/23 08:00 Rx apixaban 5 mg tablet (Eliquis) 5 mg PO BID@0730,1930 #180 tabs 05/13/23 11/11/23 11/11/23 Rx benzonatate 100 mg capsule 100 mg PO TID PRN cough #45 caps 05/24/23 11/11/23 Unknown Rx furosemide 40 mg tablet (Lasix) 60 mg (1.5 x 40 mg) PO QAM Edema 08/02/23 11/16/23 11/15/23 08:00 Rx #90 tabs metoprolol succinate 25 mg 25 mg PO DAILY 08/19/23 11/16/23 11/16/23 07:30 History tablet,extended release 24 hr sacubitril 24 mg-valsartan 26 mg 1 tab PO BID #180 tabs 08/19/23 11/16/23 11/15/23 08:00 Rx tablet (Entresto) alprazolam 0.25 mg tablet 0.25 mg PO BEDTIME PRN Sleep #30 11/11/23 11/16/23 11/15/23 19:30 Rx tabs amiodarone 200 mg tablet 200 mg PO DAILY 11/11/23 11/16/23 11/15/23 08:00 History levothyroxine 100 mcg tablet 100 mcg PO DAILY 11/11/23 11/16/23 11/16/23 07:00 History potassium chloride 10 mEq 20 meq PO DAILY 11/16/23 11/16/23 11/15/23 08:00 History tablet,extended release acetaminophen 325 mg capsule 325 mg PO Q4H PRN fever or 11/17/23 Unknown Rx postoperative pain #60 caps hydrocodone 5 mg-acetaminophen 325 1 tab PO Q4H PRN postoperative 11/17/23 Unknown Rx mg tablet pain #10 tabs ibuprofen 800 mg tablet 800 mg PO TID PRN pain #60 tabs 11/17/23 Unknown Rx Allergies Allergy/AdvReac Type Severity Reaction Status Date / Time atorvastatin [From Lipitor] Allergy ADR-Muscle Verified 11/16/23 07:41 Pain Current Medications Generic Name Dose Route Start Last Admin Trade Name Freq PRN Reason Stop Dose Admin Apixaban 5 mg 11/16/23 19:30 11/17/23 06:30 Apixaban 5 Mg Tablet PO 5 mg BID@0730,1930 RETA Administration Clopidogrel Bisulfate 75 mg 11/16/23 12:49 11/16/23 13:43 Clopidogrel 75 Mg Tablet PO 75 mg DAILY RETA Administration Docusate Sodium 100 mg 11/16/23 18:00 11/16/23 17:28 Docusate Sodium 100 Mg Capsule PO 100 mg BID RETA Administration Dextrose/Lactated Ringer's 1,000 mls @ 125 mls/hr 11/16/23 12:49 11/16/23 21:53 Dextrose 5%-Lactated Ringers IV 125 mls/hr .Q8H RETA Administration Non-Formulary Medication 54 mg 11/17/23 06:00 11/17/23 05:54 Fenofibrate PO Not Given QAM RETA Polyethylene Glycol 17 gm 11/17/23 06:00 11/17/23 05:49 Polyethylene Glycol 3350 Pkt 17 Gm PO 17 gm QAM RETA Administration Sacubitril/Valsartan 1 each 11/16/23 18:00 11/16/23 17:31 Sacubitril/Valsartan 24-26 Mg Tablet PO Not Given BID RETA PFSH Acute 2 PFSH: Medical History Hypothyroid Coronary artery disease Cardiogenic shock Congestive heart failure Blood in stool POP-Q stage 3 rectocele Rectocele Cystocele Diverticulosis Chronic episodic atrial fibrillation Afib Shortness of breath Hypertension Surgical History AICD (automatic cardioverter/defibrillator) present History of colonoscopy with polypectomy 2018 H/O total knee replacement right knee History of tubal ligation Hx of appendectomy H/O: hysterectomy H/O thyroidectomy Family History Father , unknown age CAD (coronary artery disease) Brother , age unknown Cancer colon Sister Cancer lungs Mother , in late 60s Lung disease Denies family history of Colon cancer Ovarian cancer Diabetes Clotting disorder Hyperlipidemia Chronic kidney disease (CKD) Breast cancer Suicide Anesthesia complication Bleeding disorder Uterine cancer Thyroid disease Stroke Social History Smoking and tobacco/nicotine status: former use of tobacco/nicotine Alcohol intake: never Substance/Drug Use: never Current occupational status: retired Vitals/I&O/Wt Last Vital Signs Temp 97.5 F L 11/17/23 04:39 Pulse 57 L 11/17/23 04:39 Resp 18 11/17/23 04:39 BP 123/70 11/17/23 04:39 Pulse Ox 96 11/17/23 04:39 O2 Del Method Room Air 11/17/23 04:39 O2 Flow Rate 2 11/16/23 12:10 11/16/23 11/17/23 11/17/23 22:59 06:59 14:59 Intake Total 1720 / 3570 120 / 3690 Output Total 1350 / 1970 Balance 1720 / 2950 -1230 / 1720 Weight last 48 hrs Weight 74.752 kg Weight 63.503 kg Weight 63.503 kg Physical Exam 2 Narrative: General exam is a confused female, moving all extremities with no obvious cerebellar function abnormalities HEENT: Atraumatic normocephalic. Pupils equally round. Oropharynx clear, tongue midline Neck is supple no lymphadenopathy thyromegaly Cardiovascular regular rate and rhythm, 2/6 systolic murmur Lungs clear Abdomen is soft, bowel sounds are noted exam was deferred Extremities no cyanosis clubbing edema, cap refill brisk Skin no rash Neuro no obvious focal deficits Urinary Catheter Management: Archer: Cath Placed During This Visit: yes, but has since been removed by the nurse Reason for Continuing Indwelling Catheter: Decision to DC Catheter Urinary Catheter Date of Insertion: 11/16/23 Urinary Catheter Time of Insertion: 10:15 Date Urinary Catheter Removed: 11/17/23 Time Urinary Catheter Discontinued: 05:47 Data 11/17/23 05:26 11/17/23 01:15 Other Labs: CBC was reviewed. I ordered a CMP and results are as noted. Sugar is not low. I ordered a TSH and B12 which are normal. CT head shows no acute changes. I reviewed this. A&P Assessment and plan (1) Delirium: Patient presents with delirium, following surgery and anesthesia. From discussion with the daughter she has underlying dementia. She had 12 hours or so of delirium following her last surgery. Hold narcotics Continue pain control as needed with Tylenol. Bladder scan Frequent reorientation Secondary to active hallucinations Zyprexa Zydis 5 mg now TSH, B12, CT head have now been completed by my order for workup of reversible causes of dementia. They appear to be largely unrevealing. (2) Hyponatremia: Reduce IV fluids If the patient requires continued hospital stay secondary to active delirium would repeat laboratory in the morning (3) Rectocele: She is postoperative day #1 status post repair. (4) Afib: Rate currently controlled Will get baseline EKG Continue home medications Plan History of coronary disease. Continue current medications. Other medical problems as outlined in past medical history Thank you for this consultation, we will continue to follow Consult Attestations 2 Medical Necessity Statement: As per primary Diagnoses Delirium R41.0 Hyponatremia E87.1 Rectocele N81.6 Afib I48.91 Time Spent (min) 53
--- NOTE | 2023-11-17 07:56 | PM.OBGYDC ---
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 Lau 78-year-old female with a history of rectocele stage III. Was admitted for planned posterior colporrhaphy and sacrospinous fixation. The procedure was performed without complication. Overnight observation, nurse notified of the patient have been disoriented. She had been evaluated by hospitalist who concluded she was fine. She is afebrile hemodynamically stable postoperative day 1. Tolerating diet well. Ambulating without difficulty. Patient was counseled regarding pelvic rest for 6 weeks (no sex, no tampons, no vaginal douches). Return to the emergency room if any fever, increased bleeding or pain. He was also counseled regarding restrictions on heavy lifting. Physical Exam Narrative: GA: Alert and oriented ?3. HEENT: WNL. Heart: Regular rate and rhythm. Lungs: Clear to auscultation bilaterally. Abdomen: Bowel sounds present, nontender. SHIPPER/RECEIVER: Spotting bleeding. Extremities: No edema, no cyanosis, no calves pain. Urinary Catheter Management: Archer: Cath Placed During This Visit: yes, but has since been removed by the nurse Reason for Continuing Indwelling Catheter: Decision to DC Catheter Urinary Catheter Date of Insertion: 11/16/23 Urinary Catheter Time of Insertion: 10:15 Date Urinary Catheter Removed: 11/17/23 Time Urinary Catheter Discontinued: 05:47 History History History 5 Term 3 1 Miscarriages/Ectopic 1 Living Children 3 Discharge Data Studies Completed and Pending Pending at discharge Category Date Time Status CT head wo con* [id number] Routine Cat Scan 11/17/23 07:17 Ordered B12 [Vitamin B12] Routine Lab 11/17/23 01:15 Received CMP [Comprehensive Metabolic Panel] Routine Lab 11/17/23 01:15 Received TSH [Thyroid Stimulating Hormone] Routine Lab 11/17/23 01:15 Received Laboratory Results WBC 11.19 10^3/uL (3.29-11.43) 11/17/23 05:26 RBC 4.98 10^6/uL (3.85-5.65) 11/17/23 05:26 Hgb 14.50 g/dL (11.27-16.99) 11/17/23 05:26 Hct 45.4 % (36-47) 11/17/23 05:26 MCV 91.2 fl (85-98) 11/17/23 05:26 MCH 29.1 pg (27-33) 11/17/23 05:26 MCHC 31.9 g/dL (30-55) 11/17/23 05:26 RDW 14.6 % (12.1-15.1) 11/17/23 05:26 Plt Count 232 10^3/cmm (157-399) 11/17/23 05:26 MPV 10.6 fL (7.4-10.4) H 11/17/23 05:26 Neut % (Auto) 87.5 % 11/17/23 01:15 Lymph % (Auto) 7.6 % 11/17/23 01:15 Gonzales % (Auto) 4.6 % 11/17/23 01:15 Eos % (Auto) 0.0 % 11/17/23 01:15 Baso % (Auto) 0.1 % 11/17/23 01:15 Neut # (Auto) 8.44 10^3/uL (1.8-7.7) H 11/17/23 01:15 Lymph # (Auto) 0.7 10^3/uL (0.8-4.8) L 11/17/23 01:15 Gonzales # (Auto) 0.4 10^3/uL (0.2-0.9) 11/17/23 01:15 Eos # (Auto) 0.0 10^3/uL (0.0-0.8) 11/17/23 01:15 Baso # (Auto) 0.0 10^3/uL (0.0-0.1) 11/17/23 01:15 Nucleated RBC % (auto) 0 % 11/17/23 01:15 Nucleated RBCs # 0.0 /100WBC 11/17/23 01:15 Sodium 142 mmol/L (136-145) 11/11/23 08:29 Potassium 4.2 mmol/L (3.5-5.1) 11/11/23 08:29 Chloride 106 mmol/L (98-107) 11/11/23 08:29 Carbon Dioxide 27 mmol/L (22-29) 11/11/23 08:29 Anion Gap 13.2 (5-19) 11/11/23 08:29 BUN 28 mg/dL (8-23) H 11/11/23 08:29 Creatinine 1.3 mg/dL (0.5-0.9) H 11/11/23 08:29 GFR Calculation Not Reportable 11/11/23 08:29 Glucose 135 mg/dL (65-115) H 11/11/23 08:29 POC Glucose 78 mg/dL (70-110) 11/16/23 08:14 Calculated Osmolality 302 mOsm/kg (285-295) H 11/11/23 08:29 Calcium 9.5 mg/dL (8.5-10.5) 11/11/23 08:29 Total Bilirubin 0.6 mg/dL (0.15-1.2) 11/11/23 08:29 AST 26 U/L (0-32) 11/11/23 08:29 ALT 13 U/L (0-33) 11/11/23 08:29 Alkaline Phosphatase 44 U/L (35-105) 11/11/23 08:29 Total Protein 7.2 g/dL (6.6-8.7) 11/11/23 08:29 Albumin 4.0 g/dL (3.5-5.2) 11/11/23 08:29 Globulin 3.2 g/dL (1.3-4.6) 11/11/23 08:29 Urine Color Yellow (Yellow) 11/11/23 08:54 Urine Appearance Clear (CLEAR) 11/11/23 08:54 Urine pH 5 (5-7) 11/11/23 08:54 Ur Specific [place] 1.020 (1.005-1.030) 11/11/23 08:54 Urine Protein Neg (Negative) 11/11/23 08:54 Urine Glucose (UA) 4+ (Normal) H 11/11/23 08:54 Urine Ketones Negative (Negative) 11/11/23 08:54 Urine Blood 2+ (Negative) H 11/11/23 08:54 Urine Nitrate Negative (Negative) 11/11/23 08:54 Urine Bilirubin Neg (Negative) 11/11/23 08:54 Urine Urobilinogen Norm mg/dL (Negative) 11/11/23 08:54 Ur Leukocyte Esterase Negative (Negative) 11/11/23 08:54 Urine RBC 0-4 /hpf (0-2) H 11/11/23 08:54 Urine WBC 0-4 /hpf (0-5) H 11/11/23 08:54 Ur Squamous Epith Cells 5-10 /hpf (0-5) H 11/11/23 08:54 Amorphous Sediment Not Reportable 11/11/23 08:54 Urine Bacteria 1+ /hpf (NONE) H 11/11/23 08:54 Blood Type A Negative 11/16/23 08:10 Rho(D) Type Rh negative 11/16/23 08:10 Antibody Screen Negative 11/16/23 08:10 Vitals Last Vital Signs Temp 97.5 F L 11/17/23 04:39 Pulse 57 L 11/17/23 04:39 Resp 18 11/17/23 04:39 BP 123/70 11/17/23 04:39 Pulse Ox 96 11/17/23 04:39 O2 Del Method Room Air 11/17/23 04:39 O2 Flow Rate 2 11/16/23 12:10 Results Labs OB ([facility]): Blood Type A Negative 11/16/23 Antibody Screen Negative 11/16/23 Hct 45.4 % (36-47) 11/17/23 Hgb 14.50 g/dL (11.27-16.99) 11/17/23 Rho(D) Type Rh negative 11/16/23 Plt Count 232 10^3/cmm (157-399) 11/17/23 TSH 0.94 uIU/mL (0.27-4.20) 11/17/23 Free T4 1.30 ng/dL (0.82-1.77) 06/11/22 Hemoglobin A1c 5.1 % (4.0-6.0) 06/12/22 Micro Urine Specimen 06/12/22 Discharge Plan Discharge Patient Disposition: Home Condition: Stable Prescriptions: New hydrocodone-acetaminophen 5-325 mg tablet 1 tab PO Q4H PRN (Reason: postoperative pain) Qty: 10 0RF acetaminophen 325 mg capsule 325 mg PO Q4H PRN (Reason: fever or postoperative pain) Qty: 60 0RF ibuprofen 800 mg tablet 800 mg PO TID PRN (Reason: pain) Qty: 60 0RF Continued Farxiga 10 mg tablet 10 mg PO QAM Qty: 90 3RF fenofibrate 54 mg tablet 54 mg PO QAM Qty: 90 3RF clopidogrel 75 mg tablet 75 mg PO DAILY Qty: 90 3RF Rx Instructions: (DCED 11/05/22) metoprolol succinate 25 mg tablet extended release 24 hr 25 mg PO DAILY Entresto 24-26 mg tablet 1 tab PO BID Qty: 180 3RF benzonatate 100 mg capsule 100 mg PO TID PRN (Reason: cough) Qty: 45 0RF Eliquis 5 mg tablet 5 mg PO BID@0730,1930 Qty: 180 3RF Lasix 40 mg tablet 60 mg PO QAM Qty: 90 2RF alprazolam 0.25 mg tablet 0.25 mg PO BEDTIME PRN (Reason: Sleep) Qty: 30 5RF Tylenol PM Extra Strength 25-500 mg Tablet 1 tab PO BEDTIME PRN (Reason: sleep/headache) albuterol sulfate 90 mcg/actuation HFA aerosol inhaler 2 puff INHALATION Q6H PRN (Reason: Shortness Of Breath) amiodarone 200 mg tablet 200 mg PO DAILY levothyroxine 100 mcg tablet 100 mcg PO DAILY potassium chloride 10 mEq tablet extended release 20 meq PO DAILY Rx Instructions: take it with the Lasix polyethylene glycol 3350 [Miralax] 17 gram powder in packet 17 g PO QAM Discharge Orders: Discharge Order (Routine); Ordered 11/17/23 Ordered By: Jorge Ramirez Referrals: Jorge Ramirez MD [Physician] - Discharge Diet: Usual diet Discharge Activity: Limit activity as instructed Patient Instructions: Opioid Safety, Posterior Vaginal Repair (GEN), Enterocele Repair (GEN) Activity Restrictions/Additional Instructions: 1. Please call [facility] on next working day to make your post-operative appointment in 2 weeks. 2. Please stay home until you come back to the clinic on first post-hospatilization check up. 3. Please follow instructions on your medications CAREFULLY. 4. If you have abdominal incision, do not cover it unless dressing is necessary because of drainage. OK to shower, but avoid bath. Leave steri-strips until they fall off. If they are still on one week after surgery, you may remove them. 5. If you had vaginal surgery or vaginal repair, Dr. Albino may instruct you to take SITZ bath. 6. Yellow, blood tinged odorous vaginal discharge is usually normal after hysterectomy or vaginal surgeries. 7. No SEXUAL INTERCOURSE, tampons, or douches until you are completely released from the post-operative care. 8. Avoid constipation by eating right and maybe using some Metamucil or Milk of Magnesia. 9. All prescription refills are given during the working hours. Please do no wait till it runs out. Call the clinic at [phone] before your medication runs out. The clinic will get in touch with your doctor to prescribe medications if necessary. 10. Please remain within 40 mile radius from our hospital because emergencies do happen now and then during the post-operative period. 11. If you have stairs at home, take one step at a time slowly and minimize the number of trips. It helps to stay in one floor for the next few days. No lifting except what you can lift by one hand until you are released from the post-operative care. 12. Driving is discouraged until you are well healed. It may be 3-4 weeks before you feel strong enough to drive. You should be able to turn and look through the rear window without pain and you should be able to push the brake pedal very hard without pain before you drive. No fast rules, but SAFETY should be your primary concern. DO NOT drive if you are on sedating medications such as narcotics. 13. Call the clinic (during working hours) to make urgent appointment or go to the Emergency room, if any of the following occurs: i. Vaginal bleeding becomes heavy, more than a period. ii. Incision becomes red and sore, or drains pus. iii. Your TEMPERATURE is over 100.4F or you have chill. iv. IV site becomes red and swollen (a little ``knot?? is usually OK) v. Persistent nausea and vomiting vi. Persistent constipation or diarrhea vii. Rash or allergic reaction to medications.. Discharge Attestations ONCOLOGY TRANSPLANT NETWORK MANAGER Time Spent in Discharge Care*: greater than 30 min Status at Discharge: Cognitive status at discharge: cognitively intact, Behavioral status at discharge: cooperative, Coding Level of Care Code Acute Code for Chg Fwd
[2023-11-17 08:08] LABS: Alanine Aminotransferase 13 U/L (0-33); Albumin Level 4.1 g/dL (3.5-5.2); Alkaline Phosphatase 43 U/L (35-105); Anion Gap 16.7 (5-19); Aspartate Amino Transferase 25 U/L (0-32); Blood Urea Nitrogen 17 mg/dL (8-23); Calcium 8.8 mg/dL (8.5-10.5); Carbon Dioxide 25 mmol/L (22-29); Chloride 95 mmol/L (98-107); Creatinine Clr Calc Pharmacy 39.4998; Globulin 3.1 g/dL (1.3-4.6); Glucose 137 mg/dL (65-115); Osmolality Calculated 280 mOsm/kg (285-295); Potassium 3.7 mmol/L (3.5-5.1); Sodium 133 mmol/L (136-145); Thyroid Stimulating Hormone 0.94 uIU/mL (0.27-4.20); Total Protein 7.2 g/dL (6.6-8.7); Vitamin B12 372 pg/mL (232-1245)
[2023-11-17] MEDS: potassium chloride ER 10 mEq Tablet 20 MEQ PO (09:01)
[2023-11-17] MEDS: levothyroxine 100 mcg Tablet PO (09:01)
[2023-11-17] MEDS: amiodarone 200 mg Tablet PO (09:01)
[2023-11-17] MEDS: docusate sodium 100 mg Capsule PO ×2 (09:01→17:26)
[2023-11-17] MEDS: sacubitril/valsartan 24-26 mg Tablet 1 EACH PO ×2 (09:01→17:26)
[2023-11-17] MEDS: clopidogrel 75 mg Tablet PO (09:01)
--- NOTE | 2023-11-17 10:48 | ECG_ITS ---
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 Measurements Intervals [place] Rate: 60 P: 41 [place]: 233 QRS: -2 QRSD: 90 T: 0 QT: 421 QTc: 421 Interpretive Statements SINUS RHYTHM WITH FIRST DEGREE AV BLOCK INFERIOR MYOCARDIAL INFARCTION , OF INDETERMINATE AGE [40+ ms Q WAVE AND/OR ST/T ABNORMALITY IN II/aVF] Compared to ECG 11/11/2023 08:39:05 Sinus bradycardia no longer present Myocardial infarct finding still present Electronically Signed On 11-17-2023 18:52:03 CDT by Yazan Angelo M.D. [email or web address] [id number]
[2023-11-17] MEDS: OLANZapine 5 mg ODT PO (11:18)
[2023-11-17] MEDS: dextrose 5%-lactated ringers 1,000 ML 75 ML IV ×2 (11:36→23:07)
[2023-11-17 15:59] LABS: Add Urine Microscopic? YES; Bilirubin Urine Neg (Negative); Blood Urine 2+ (Negative); Glucose Urine UA 1+ (Normal); Ketones Urine Negative (Negative); Leukocyte Esterase Urine Negative (Negative); Nitrate Urine Negative (Negative); Protein Urine Neg (Negative); Urine Appearance Clear (CLEAR); Urine Color Colorless (Yellow); Urobilinogen Urine Norm (Negative); pH Urine 5 (5-7)
[2023-11-17 16:04] LABS: Add Urine Culture? No; RBC Urine 0-4 /hpf (0-2)
[2023-11-17 19:30] VITALS: BP 111/63; PULSE 58; RESP 16; TEMP 36.5; O2SAT 97
[2023-11-17] MEDS: OLANZapine 5 mg TABLET PO (20:05)
[2023-11-17] MEDS: ALPRAZolam 0.5 mg Tablet 0.25 MG PO (21:46)
[2023-11-17 23:20] VITALS: BP 115/69; PULSE 62; RESP 16; TEMP 36.5; O2SAT 96
[2023-11-18] VITALS (7 sets, daily range): BP systolic 86–149; BP diastolic 54–88; PULSE 62–105; RESP 16–20; TEMP 36.8–37; O2SAT 82–97
[2023-11-18 05:05] LABS: Basophils # 0.1 10^3/uL (0.0-0.1); Basophils % 0.7 %; Eosinophils # 0.1 10^3/uL (0.0-0.8); Eosinophils % 0.8 %; Hematocrit 44.8 % (36-47); Lymphocytes # 1.2 10^3/uL (0.8-4.8); Lymphocytes % 16.9 %; Mean Corpuscular HGB Conc 31.9 g/dL (30-55); Mean Corpuscular Hemoglobin 28.7 pg (27-33); Monocytes # 0.5 10^3/uL (0.2-0.9); Monocytes % 6.6 %; Neutrophils # 5.33 10^3/uL (1.8-7.7); Neutrophils % 74.7 %; Nucleated Red Blood Cells % 0 %; Platelet Count 179 10^3/cmm (157-399); Red Blood Count 4.98 10^6/uL (3.85-5.65); Red Cell Distribution Width 14.8 % (12.1-15.1); White Blood Count 7.14 10^3/uL (3.29-11.43)
[2023-11-18] MEDS: polyethylene glycol 3350 Pkt 17 gm PO (05:23)
[2023-11-18 05:27] LABS: Alanine Aminotransferase 16 U/L (0-33); Albumin Level 3.7 g/dL (3.5-5.2); Alkaline Phosphatase 42 U/L (35-105); Anion Gap 11.5 (5-19); Aspartate Amino Transferase 42 U/L (0-32); Blood Urea Nitrogen 15 mg/dL (8-23); Carbon Dioxide 31 mmol/L (22-29); Chloride 104 mmol/L (98-107); Creatinine Clr Calc Pharmacy 39.4998; Glucose 111 mg/dL (65-115); Magnesium 1.9 mg/dL (1.7-2.3); Osmolality Calculated 298 mOsm/kg (285-295); Potassium 3.5 mmol/L (3.5-5.1); Sodium 143 mmol/L (136-145); Total Protein 6.7 g/dL (6.6-8.7)
--- NOTE | 2023-11-18 06:15 | XRR_ITS ---
PROCEDURE INFORMATION: Exam: XR Chest Exam date and time: 11/18/2023 7:53 AM Age: 78 years old Clinical indication: Shortness of breath; Additional info: Hypoxia and SOB TECHNIQUE: Imaging protocol: Radiologic exam of the chest. Views: 1 view. COMPARISON: CR XR chest 2V* [id number] 08/03/2023 9:26 AM FINDINGS: Tubes, catheters and devices: Unchanged left pacemaker/AICD projecting in satisfactory position. Lungs: New diffuse bilateral pulmonary edema and/or pneumonitis. Probable new superimposed bibasilar atelectasis. Pleural spaces: New small-moderate bilateral pleural effusions. No pneumothorax. Heart/Mediastinum: Unchanged moderate cardiomegaly. Bones/joints: Unchanged very mild scoliosis with multilevel spondylosis. XR/XR chest 1V portable [id number] IMPRESSION: 1. New diffuse bilateral pulmonary edema and/or pneumonitis with probable new superimposed bibasilar atelectasis. 2. New small-moderate bilateral pleural effusions. 3. Unchanged moderate cardiomegaly.
--- NOTE | 2023-11-18 06:25 | PC.NURSE ---
Shift summary Patient was alert to name, , but not place or time. Patient is confused and does not respond appropriately to questions. Patient requires almost constant redirection to remain in bed or seated as she is a fall risk. Patient required much redirection throughout shift and intervention by nurse to prevent pulling of IV's and galloway catheter. The patient hallucinated most of the night, seeing people, insects, and animals in her room. Around 5 a.m. this nurse noted a change in patients work of breathing, SOB and wheezing was noted. New vitals signs obtained and SPO2 was 82% RA. Up to 3L NC was required to maintain O2 above 92%. Night time hospitalist Dr. Seaman notified and new orders for chest x ray were obtained. Family notified that a sitter may not be available and day shift may need a family member to sit with patient today, daughter Alyssa notified and stated family could sit with patient for the dayshift.
[2023-11-18] MEDS: apixaban 5 mg Tablet PO ×2 (06:37→19:39)
[2023-11-18] MEDS: FUROsemide 10 mg/mL SDV 4mL 40 MG IVP (08:47)
[2023-11-18] MEDS: docusate sodium 100 mg Capsule PO ×2 (08:47→19:39)
[2023-11-18] MEDS: potassium chloride ER 10 mEq Tablet 20 MEQ PO (08:48)
[2023-11-18] MEDS: clopidogrel 75 mg Tablet PO (08:48)
[2023-11-18] MEDS: amiodarone 200 mg Tablet PO (08:48)
[2023-11-18] MEDS: sacubitril/valsartan 24-26 mg Tablet 1 EACH PO ×2 (08:49→19:39)
[2023-11-18] MEDS: levothyroxine 100 mcg Tablet PO (08:50)
--- NOTE | 2023-11-18 11:24 | P.PN_ITS ---
Documented by User: ADÁN Harris [email or web address] 11/18/23 11:38 Subjective 2 Subjective: Patient resting in bed on 2L NC with both daughters at bedside. She denies pain and shortness of breath at this time. Ilana is still noted to have confusion, A&O x2 this morning. Medications: Reviewed: Yes Vitals/I&O/Wt Last Vital Signs Temp 98.4 F 11/18/23 07:43 Pulse 76 11/18/23 07:43 Resp 18 11/18/23 07:43 BP 123/76 11/18/23 07:43 Pulse Ox 94 11/18/23 07:43 O2 Del Method Nasal Cannula 11/18/23 07:43 O2 Flow Rate 3 11/18/23 06:42 11/17/23 11/18/23 11/18/23 22:59 06:59 14:59 Intake Total 480 / 1658.75 863.75 / 2522.50 681.25 / 681.25 Output Total 1200 / 1400 Balance -720 / 258.75 863.75 / 1122.50 681.25 / 681.25 Weight last 48 hrs Weight 155 lb 6 oz Weight 164 lb 12.8 oz Weight 140 lb Physical Exam 2 Narrative: General exam is a confused female, moving all extremities with no obvious cerebellar function abnormalities. Neuro: A&Ox2 HEENT: Pupils equally round. Oropharynx clear, tongue midline. Neck is supple. No lymphadenopathy, no thyromegaly. Cardiovascular regular rate and rhythm, 2/6 systolic murmur Lungs sounds clear, on 2L NC. Abdomen is soft, bowel sounds are noted. Extremities no cyanosis clubbing edema, cap refill brisk Urinary Catheter Management: Archer: Cath Placed During This Visit: yes, but has since been removed by the nurse Reason for Continuing Indwelling Catheter: Other Urinary Catheter Date of Insertion: 11/17/23 Urinary Catheter Time of Insertion: 15:10 Date Urinary Catheter Removed: 11/17/23 Time Urinary Catheter Discontinued: 05:47 Data 11/18/23 04:48 11/18/23 04:48 A&P Assessment and plan (1) Delirium: Patient presents with delirium, following surgery and anesthesia. From discussion with the daughter she has underlying dementia. She had 12 hours or so of delirium following her last surgery. She is noted to be A&Ox2 this morning. Hold narcotics Continue pain control as needed with Tylenol. Arhcer Catheter in place. Frequent reorientation Secondary to active hallucinations Zyprexa Zydis 5 mg now TSH, B12, CT head have now been completed by my order for workup of reversible causes of dementia. They appear to be largely unrevealing. (2) Hyponatremia: Reduce IV fluids CMP in am (3) Rectocele: She is postoperative day #1 status post repair. (4) Afib: Rate currently controlled Will get baseline EKG Continue home medications Plan History of coronary disease. Continue current medications. Other medical problems as outlined in past medical history Thank you for this consultation, we will continue to follow Coding Level of Care Code 84488 Diagnoses Delirium R41.0 Hyponatremia E87.1 Rectocele N81.6 Afib I48.91 Time Spent (min) 24 Documented by User: Curtis Stone MD 11/18/23 11:46 Subjective 2 Subjective: Patient resting in bed on 2L NC with both daughters at bedside. She denies pain and shortness of breath at this time. Ilana is still noted to have confusion, A&O x2 this morning. She did cough up some blood this morning. She was noted to be short of breath and fluids were discontinued this morning and a chest x-ray ordered. Physical Exam 2 Narrative: General exam is a confused female, moving all extremities with no obvious cerebellar function abnormalities. Neuro: A&Ox2 HEENT: Pupils equally round. Oropharynx clear, tongue midline. Neck is supple. No lymphadenopathy, no thyromegaly. Cardiovascular regular rate and rhythm, 2/6 systolic murmur Lungs crackles bilaterally this morning. Abdomen is soft, bowel sounds are noted. Extremities no cyanosis clubbing edema, cap refill brisk Urinary Catheter Management: Archer: Cath Placed During This Visit: yes, but has since been removed by the nurse Data 11/18/23 04:48 11/18/23 04:48 A&P Assessment and plan (1) Delirium: Patient presents with delirium, following surgery and anesthesia. From discussion with the daughter she has underlying dementia. She had 12 hours or so of delirium following her last surgery. She is noted to be A&Ox2 this morning. Hold narcotics Continue pain control as needed with Tylenol. Archer Catheter in place. Frequent reorientation For hallucinations Haldol as needed, 1 mg every 6 hours. TSH, B12, CT head have now been completed by my order for workup of reversible causes of dementia. They appear to be largely unrevealing. (2) Hyponatremia: Resolved (3) Rectocele: She is postoperative day #2 status post repair. (4) Afib: Rate currently controlled Continue home medications. Plan Fluid overload consistent with acute exacerbation of CHF, diastolic, superimposed on chronic CHF. Hold fluids. Lasix 40 mg IV x 1, reassess. 1 episode of hemoptysis. Patient without chest pain, tachycardia. I think this is likely airway irritation from recent surgery and initiation of her apixaban. May also have to do with her pulmonary edema. Monitor for improvement. History of coronary disease. Continue current medications. Other medical problems as outlined in past medical history Thank you for this consultation, we will continue to follow Attestations 2 Medical Necessity Statement*: At this point needs continued hospitalization awaiting for delirium to improve and patient to get back more to baseline. She is not safe to go home with her degree of delirium at this point. Diagnoses Delirium R41.0 Hyponatremia E87.1 Rectocele N81.6 Afib I48.91 Time Spent (min) 24
[2023-11-18] MEDS: haloperidol 1 mg Tablet 0.5 MG PO (12:47)
[2023-11-19] VITALS (8 sets, daily range): BP systolic 88–99; BP diastolic 46–62; PULSE 84–100; RESP 16; TEMP 36.5–36.8; O2SAT 93–99
--- NOTE | 2023-11-19 01:00 | ECG_ITS ---
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 Measurements Intervals [place] Rate: 108 P: 0 NV: 0 QRS: -13 QRSD: 94 T: 94 QT: 366 QTc: 491 Interpretive Statements ATRIAL FLUTTER/TACHYCARDIA WITH RAPID VENTRICULAR RESPONSE POSSIBLE ANTERIOR MYOCARDIAL INFARCTION , OF INDETERMINATE AGE [30 ms Q WAVE IN V3/V4, OR R < 0.2 mV IN V4] INFERIOR MYOCARDIAL INFARCTION , OF INDETERMINATE AGE [40+ ms Q WAVE AND/OR ST/T ABNORMALITY IN II/aVF] Compared to ECG 11/17/2023 11:06:13 Sinus rhythm no longer present First degree AV block no longer present Myocardial infarct finding still present Electronically Signed On 11-20-2023 19:17:46 CDT by Yazan Angelo M.D. [id number]
[2023-11-19 05:56] LABS: Basophils # 0.1 10^3/uL (0.0-0.1); Basophils % 0.8 %; Eosinophils # 0.1 10^3/uL (0.0-0.8); Eosinophils % 1.5 %; Hematocrit 41.1 % (36-47); Lymphocytes # 1.6 10^3/uL (0.8-4.8); Lymphocytes % 21.7 %; Mean Corpuscular HGB Conc 30.9 g/dL (30-55); Mean Corpuscular Hemoglobin 28.2 pg (27-33); Mean Corpuscular Volume 91.1 fl (85-98); Mean Platelet Volume 10.1 fL (7.4-10.4); Monocytes # 0.6 10^3/uL (0.2-0.9); Monocytes % 7.6 %; Neutrophils # 4.91 10^3/uL (1.8-7.7); Neutrophils % 68.1 %; Nucleated Red Blood Cells % 0 %; Platelet Count 188 10^3/cmm (157-399); Red Blood Count 4.51 10^6/uL (3.85-5.65); Red Cell Distribution Width 15.1 % (12.1-15.1); White Blood Count 7.22 10^3/uL (3.29-11.43)
[2023-11-19 06:11] LABS: Anion Gap 11.8 (5-19); Blood Urea Nitrogen 20 mg/dL (8-23); Calcium 8.3 mg/dL (8.5-10.5); Carbon Dioxide 30 mmol/L (22-29); Chloride 102 mmol/L (98-107); Creatinine Clr Calc Pharmacy 38.6469; Glucose 98 mg/dL (65-115); Osmolality Calculated 293 mOsm/kg (285-295); Potassium 3.8 mmol/L (3.5-5.1); Sodium 140 mmol/L (136-145)
[2023-11-19] MEDS: polyethylene glycol 3350 Pkt 17 gm PO (06:32)
[2023-11-19] MEDS: apixaban 5 mg Tablet PO (06:32)
--- NOTE | 2023-11-19 06:47 | PC.NURSE ---
Shift summary Patient has been alert and oriented to name, , place all shift. Not hallucinations were noted tonight. Patient did not attempt to get out of bed or remove IV or Galloway. Patient was up to bedside commode twice to attempt a bowel movement but had no results. Patient had low urine output for this shift, only 100 mls of obdulia urine collected from galloway catheter. Dr. Seaman notified of low urine output and soft BPs, no new orders at this time.
[2023-11-19] MEDS: levothyroxine 100 mcg Tablet PO (08:33)
[2023-11-19] MEDS: clopidogrel 75 mg Tablet PO (08:34)
[2023-11-19] MEDS: docusate sodium 100 mg Capsule PO (08:34)
[2023-11-19] MEDS: potassium chloride ER 10 mEq Tablet 20 MEQ PO (08:35)
[2023-11-19] MEDS: sacubitril/valsartan 24-26 mg Tablet 1 EACH PO (08:36)
[2023-11-19] MEDS: amiodarone 200 mg Tablet PO (08:36)
--- NOTE | 2023-11-19 10:22 | P.PN_ITS ---
Subjective 2 Subjective: Ilana reports she feels a lot better. Family reports her mental status is back to baseline. Medications: Reviewed: Yes Vitals/I&O/Wt Last Vital Signs Temp 97.7 F 11/19/23 07:22 Pulse 90 11/19/23 08:37 Resp 16 11/19/23 07:22 BP 96/60 11/19/23 08:37 Pulse Ox 96 11/19/23 08:37 O2 Del Method Nasal Cannula 11/19/23 08:37 O2 Flow Rate 2 11/19/23 08:37 11/18/23 11/19/23 11/19/23 22:59 06:59 14:59 Intake Total 240 / 921.25 Output Total 525 / 2075 100 / 2175 Balance -285 / -1153.75 -100 / -1253.75 Weight last 48 hrs Weight 71.441 kg Weight 70.477 kg Physical Exam 2 Narrative: General exam no distress, alert and oriented Neck is supple. No lymphadenopathy, no thyromegaly. Cardiovascular regular rate and rhythm, 2/6 systolic murmur Lungs clear Abdomen is soft, bowel sounds are noted. Extremities no cyanosis clubbing edema, cap refill brisk Urinary Catheter Management: Archer: Cath Placed During This Visit: yes, but has since been removed by the nurse Reason for Continuing Indwelling Catheter: Acute Urinary Retention or Obstruction Urinary Catheter Date of Insertion: 11/17/23 Urinary Catheter Time of Insertion: 15:10 Date Urinary Catheter Removed: 11/17/23 Time Urinary Catheter Discontinued: 05:47 Data 11/19/23 05:09 11/19/23 05:09 A&P Assessment and plan (1) Delirium: Patient presents with delirium, following surgery and anesthesia. From discussion with the daughter she has underlying dementia. She had 12 hours or so of delirium following her last surgery. She is noted to be A&Ox2 this morning. Hold narcotics Continue pain control as needed with Tylenol. Archer Catheter in place. Frequent reorientation For hallucinations Haldol as needed, 1 mg every 6 hours. TSH, B12, CT head have now been completed by my order for workup of reversible causes of dementia. They appear to be largely unrevealing. Delirium is cleared. From this standpoint she is ready for discharge. (2) Hyponatremia: Resolved (3) Rectocele: She is postoperative day #2 status post repair. (4) Afib: Rate currently controlled Continue home medications. Plan Fluid overload consistent with acute exacerbation of CHF, diastolic, superimposed on chronic CHF. Appears compensated currently. Restart oral Lasix. History of coronary disease. Continue current medications. Other medical problems as outlined in past medical history Thank you for this consultation, we will continue to follow Attestations 2 Medical Necessity Statement*: As per primary Diagnoses Delirium R41.0 Hyponatremia E87.1 Rectocele N81.6 Afib I48.91 Time Spent (min) 20
== END 2023-11-19 15:00 | disposition home or self-care (01) ==
LOC: MEDSURG 12:39
PROVIDERS: Internal Medicine; Admitting Provider Obstetrics & Gynecology; Visit Provider Obstetrics & Gynecology
PROC: (CPT 57250; principal; 2023-11-16 09:05)
PROC: (CPT 57282; 2023-11-16 09:05)
DX: N81.6 Rectocele (principal); R41.0 Disorientation, unspecified; E87.1 Hypo-osmolality and hyponatremia; I48.91 Unspecified atrial fibrillation; I25.10 Atherosclerotic heart disease of native coronary artery without angina pectoris
CPT/HCPCS: 57250; 57282; 36415; 36416; 51702; 51798; 70450; 71045; 80048; 80053; 81001; 82607; 82962; 83735; 84443; 85025; 85027; 86850; 86900; 93005; G0378; J0690; J1100; J1170; J1650; J1885; J1940; J2405; J2704; J3010; J3490; J7030; J7121

== ENCOUNTER → 2024-02-11 11:12 | Outpatient (BNVA) | payer MEDICARE, MEDICAID, SELFPAY | PROVIDERS: Visit Provider Nurse Practitioner Family | DX: I48.20 Chronic atrial fibrillation, unspecified (principal); I25.5 Ischemic cardiomyopathy; Z87.891 Personal history of nicotine dependence; I10 Essential (primary) hypertension | CPT/HCPCS: 99214 ==

== ENCOUNTER 2024-02-17 08:30 | Emergency (ER) | payer MEDICARE, MEDICAID, SELFPAY ==
--- NOTE | 2024-02-17 08:31 | ECG_ITS ---
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 Measurements Intervals [place] Rate: 72 P: 38 [place]: 208 QRS: 15 QRSD: 93 T: 84 QT: 400 QTc: 440 Interpretive Statements SINUS RHYTHM WITH SINUS ARRHYTHMIA.. First-degree AV block POSSIBLE LEFT VENTRICULAR HYPERTROPHY [VOLTAGE CRITERIA PLUS LAE OR QRS WIDENING] ANTERIOR MYOCARDIAL INFARCTION , OF INDETERMINATE AGE [40+ ms Q WAVE AND/OR ST/T ABNORMALITY IN V3/V4] POSSIBLE INFERIOR MYOCARDIAL INFARCTION , OF INDETERMINATE AGE [30 ms Q WAVE IN II/aVF] INTERPRETATION BASED ON A DEFAULT AGE OF 40 YEARS Compared to ECG 11/19/2023 01:03:38 Atrial flutter no longer present Myocardial infarct finding still present Electronically Signed On 02-18-2024 0:52:56 CDT by Yazan Angelo M.D. [id number]
--- NOTE | 2024-02-17 08:31 | ECG_ITS ---
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 Measurements Intervals [place] Rate: 72 P: 38 NC: 208 QRS: 15 QRSD: 93 T: 84 QT: 400 QTc: 440 Interpretive Statements SINUS RHYTHM WITH SINUS ARRHYTHMIA POSSIBLE LEFT VENTRICULAR HYPERTROPHY [VOLTAGE CRITERIA PLUS LAE OR QRS WIDENING] ANTERIOR MYOCARDIAL INFARCTION , OF INDETERMINATE AGE [40+ ms Q WAVE AND/OR ST/T ABNORMALITY IN V3/V4] POSSIBLE INFERIOR MYOCARDIAL INFARCTION , OF INDETERMINATE AGE [30 ms Q WAVE IN II/aVF] INTERPRETATION BASED ON A DEFAULT AGE OF 40 YEARS Compared to ECG 11/19/2023 01:03:38 Atrial flutter no longer present Myocardial infarct finding still present Electronically Signed On 02-18-2024 1:03:14 CDT by Yazan Angelo M.D. [id number]
--- NOTE | 2024-02-17 08:34 | XR_ITS ---
WS: [id number] XR chest 1V portable [id number] REASON FOR EXAM: dyspnea/cough FINDINGS: Cardiac device over the left chest with lead to the right ventricular apex. Significant cardiomegaly. Central pulmonary venous congestion. No definite pulmonary edema. Diffuse interstitial lung opacities on the examination of 11/18/2023 have cleared. Atelectasis in the left lower lobe remains. Residual interstitial lung opacities in the lower lung petty would appear t o be chronic. No new findings. XR/XR chest 1V portable [id number] IMPRESSION: No acute chest abnormality. Moderate cardiomegaly and chronic interstitial changes.
[2024-02-17 09:01] VITALS: BMI 24.3
--- NOTE | 2024-02-17 09:04 | ED_ITS ---
HPI - SOB/Dyspnea 2 General: Chief Complaint: Shortness of Breath/Dyspnea Stated Complaint: sob Time Seen by Provider: 02/17/24 08:33 History of Present Illness: HPI Narrative: 78-year-old female presents to the [facility] ency room complaining of shortness of breath. Shortness of breath the last couple of nights she has a history of COPD. She has been using her nebulizers a little bit more often. She also has noticed a slight increase in her baseline productive cough. No fevers sweats or chills. She has another only member who has been ill but neither been tested for anything definitively. She is not usually on oxygen at home. She does not use BiPAP. She has a history of chronic atrial fibrillation. Patient also has a known history of severe cardiomyopathy her last echocardiogram done approximately 17 months ago showed an EF of 20 to 25%. She denies any chest pain at this time. Associated symptoms: Reports chest congestion and orthopnea; Deny abdominal pain, chest pain or fever(s) Review of Systems 2 Const: Denies: fever(s) or chills Card: Reports: dyspnea on exertion and orthopnea; Denies: chest pain Resp: Reports: dyspnea, non-productive cough, wheezing and chest congestion GI: Denies: abdominal pain : Denies: dysuria, urinary frequency or urinary urgency Musc: Denies: neck pain or back pain Skin/Breast: Denies: rash PFSH ED 2 PFSH: Medical History Hypothyroid Coronary artery disease Cardiogenic shock Congestive heart failure Blood in stool POP-Q stage 3 rectocele Rectocele Cystocele Diverticulosis Chronic episodic atrial fibrillation Afib Shortness of breath Hypertension Surgical History AICD (automatic cardioverter/defibrillator) present History of colonoscopy with polypectomy 2018 H/O total knee replacement right knee History of tubal ligation Hx of appendectomy H/O: hysterectomy H/O thyroidectomy Family History Father , unknown age CAD (coronary artery disease) Brother , age unknown Cancer colon Sister Cancer lungs Mother , in late 60s Lung disease Denies family history of Colon cancer Ovarian cancer Diabetes Clotting disorder Hyperlipidemia Chronic kidney disease (CKD) Breast cancer Suicide Anesthesia complication Bleeding disorder Uterine cancer Thyroid disease Stroke Social History Smoking and tobacco/nicotine status: former use of tobacco/nicotine Alcohol intake: never Substance/Drug Use: never Current occupational status: retired Physical Exam 2 Const: GENERAL APPEARANCE: cooperative and comfortable O RIENTATION/CONSCIOUSNESS: Yes awake, Yes oriented to person, Yes oriented to place and Yes oriented to time HENMT: COMMON NORMALS: normocephalic, atraumatic and hearing grossly normal bilaterally HEAD & SCALP: normocephalic and atraumatic Resp: AUSCULTATION: wheezes Cardio: COMMON NORMALS: regular rate, regular rhythm and No murmurs present (Cardio) RATE: regular rate RHYTHM: regular rhythm GI: COMMON NORMALS: Soft to palpation and No hepatosplenomegaly present A USCULTATION: Yes normoactive bowel sounds PALPATION: Yes Soft to palpation, No Tenderness to palpation present (GI), No Guarding due to palpation present (GI) and Yes No hepatosplenomegaly present Extremity: COMMON NORMALS: normal to inspection, capillary refill normal, no clubbing, cyanosis or edema, no calf tenderness and no pedal edema Neuro: SENSORIUM/ORIENTATION: Yes oriented to person, Yes oriented to place and Yes oriented to time Skin: COMMON NORMALS: no rashes or lesions noted GENERAL SKIN EXAM: no rashes or lesions noted Course 2 Vital Signs: Vital signs: Vital Signs Pulse Rate 69 02/17/24 13:44 Respiratory Rate 16 02/17/24 13:44 Blood Pressure 137/87 02/17/24 13:44 Pulse Oximetry 92 02/17/24 13:44 Oxygen Delivery Me thod Room Air 02/17/24 13:32 MDM - SOB/Dyspnea Medical Decision Making Labs and imaging reviewed cardiac enzymes negative no leukocytosis no sign of infection think this is mostly exacerbation of her COPD was started on doxycycline and a steroid taper aggressive use of albuterol follow-up with primary care return if is worsening or change problems Lab Data 02/17/24 09:41 02/17/24 09:41 Labs/Radiology: Radiology Impressions Chest X-Ray 02/17/24 08:34 IMPRESSION: No acute chest abnormality. Moderate cardiomegaly and chronic interstitial changes. Laboratory Results WBC 6.78 10^3/uL (3.29-11.43) 02/17/24 09:41 RBC 4.90 10^6/uL (3.85-5.65) 02/17/24 09:41 Hgb 14.10 g/dL (11.27-16.99) 02/17/24 09:41 Hct 45.5 % (36-47) 02/17/24 09:41 MCV 92.9 fl (85-98) 02/17/24 09:41 MCH 28.8 pg (27-33) 02/17/24 09:41 MCHC 31.0 g/dL (30-55) 02/17/24 09:41 RDW 16.4 % (12.1-15.1) H 02/17/24 09:41 Plt Count 330 10^3/cmm (157-399) 02/17/24 09:41 MPV 9.4 fL (7.4-10.4) 02/17/24 09:41 Neut % (Auto) 63.1 % 02/17/24 09:41 Lymph % (Auto) 26.4 % 02/17/24 09:41 [place] % (Auto) 7.7 % 02/17/24 09:41 Eos % (Auto) 0.3 % 02/17/24 09:41 Baso % (Auto) 2.1 % 02/17/24 09:41 Neut # (Auto) 4.28 10^3/uL (1.8-7.7) 02/17/24 09:41 Lymph # (Auto) 1.8 10^3/uL (0.8-4.8) 02/17/24 09:41 [place] # (Auto) 0.5 10^3/uL (0.2-0.9) 02/17/24 09:41 Eos # (Auto) 0.0 10^3/uL (0.0-0.8) 02/17/24 09:41 Baso # (Auto) 0.1 10^3/uL (0.0-0.1) 02/17/24 09:41 Nucleated RBC % (auto) 0 % 02/17/24 09:41 Nucleated RBCs # 0.0 /100WBC 02/17/24 09:41 Specimen Type Arterial 02/17/24 09:20 Sample Site Radial, right 02/17/24 09:20 ABG pH 7.48 (7.35-7.45) H 02/17/24 09:20 ABG pCO2 33.7 mmHg (35-45) L 02/17/24 09:20 ABG pO2 66.4 mmHg (80.0-100.0) L 02/17/24 09:20 ABG PO2/FiO2 Ratio 316 02/17/24 09:20 ABG HCO3 25.2 mmol/L (22-26) 02/17/24 09:20 ABG O2 Saturation 93.2 02/17/24 09:20 ABG Base Excess 2.1 mmol/L (-2.0-2.0) H 02/17/24 09:20 Rehan Test Pos 02/17/24 09:20 A-a O2 Gradient 5.4 mmHg (5-10) 02/17/24 09:20 Hematocrit 41.4 % (37-47) 02/17/24 09:20 Hgb O2 Saturation 92.4 % (95-100) L 02/17/24 09:20 Carboxyhemoglobin 0.2 %THgb (0.4-20.1) L 02/17/24 09:20 Methemoglobin 0.6 % (0.4-1.5) 02/17/24 09:20 Total Hemoglobin 13.5 g/dL (12-16) 02/17/24 09:20 Sodium 132.0 mmol/L (131-143) 02/17/24 09:20 Potassium 3.7 mmol/L (3.5-5.0) 02/17/24 09:20 Glucose 105.0 mg/dL (70-115) 02/17/24 09:20 Ionized Calcium 1.1 mmol/L (1.1-1.4) 02/17/24 09:20 O2 Delivery Device Room air 02/17/24 09:20 FiO2 21.0 % 02/17/24 09:20 Patient Assessment Coordinator ID yorna 02/17/24 09:20 Sodium 142 mmol/L (136-145) 02/17/24 09:41 Potassium 3.9 mmol/L (3.5-5.1) 02/17/24 09:41 Chloride 104 mmol/L (98-107) 02/17/24 09:41 Carbon Dioxide 24 mmol/L (22-29) 02/17/24 09:41 Anion Gap 17.9 (5-19) 02/17/24 09:41 BUN 17 mg/dL (8-23) 02/17/24 09:41 Creatinine 1.1 mg/dL (0.5-0.9) H 02/17/24 09:41 GFR Calculation Not Reportable 02/17/24 09:41 Glucose 110 mg/dL (65-115) 02/17/24 09:41 Calculated Osmolality 296 mOsm/kg (285-295) H 02/17/24 09:41 Lactic Acid 1.4 mmol/L (0.5-2.2) 02/17/24 09:41 Calcium 9.0 mg/dL (8.5-10.5) 02/17/24 09:41 Magnesium 2.1 mg/dL (1.7-2.3) 02/17/24 09:41 Total Bilirubin 0.9 mg/dL (0.15-1.2) 02/17/24 09:41 AST 23 U/L (0-32) 02/17/24 09:41 ALT 11 U/L (0-33) 02/17/24 09:41 Alkaline Phosphatase 70 U/L (35-105) 02/17/24 09:41 Troponin T Baseline 21 ng/L (0-10) H 02/17/24 09:41 Troponin T 120 Minute 20.11 ng/L (0-10) H 02/17/24 11:55 Delta Troponin T -0.89 ABS# (0-10) L 02/17/24 11:55 Total Protein 7.6 g/dL (6.6-8.7) 02/17/24 09:41 Albumin 4.1 g/dL (3.5-5.2) 02/17/24 09:41 Globulin 3.5 g/dL (1.3-4.6) 02/17/24 09:41 Urine Color Yellow (Yellow) 02/17/24 08:45 Urine Appearance Clear (CLEAR) 02/17/24 08:45 Urine pH 5 (5-7) 02/17/24 08:45 Ur Specific [place] 1.015 (1.005-1.030) 02/17/24 08:45 Urine Protein Neg (Negative) 02/17/24 08:45 Urine Glucose (UA) Norm (Normal) 02/17/24 08:45 Urine Ketones Negative (Negative) 02/17/24 08:45 Urine Blood 2+ (Negative) H 02/17/24 08:45 Urine Nitrate Negative (Negative) 02/17/24 08:45 Urine Bilirubin Neg (Negative) 02/17/24 08:45 Urine Urobilinogen Norm mg/dL (Negative) 02/17/24 08:45 Ur Leukocyte Esterase Negative (Negative) 02/17/24 08:45 Urine RBC 0-4 /hpf (0-2) H 02/17/24 08:45 Urine WBC None /hpf (0-5) 02/17/24 08:45 Ur Squamous Epith Cells None /hpf (0-5) 02/17/24 08:45 Ur Transition Epith Cell 0-4 /hpf 02/17/24 08:45 Amorphous Sediment Not Reportable 02/17/24 08:45 Urine Bacteria None /hpf (NONE) 02/17/24 08:45 Urine Mucus Trace /hpf 02/17/24 08:45 All radiology interpretation(s) finalized by discharge Discharge Plan Discharge Patient Disposition: Home Clinical Impression: Acute exacerbation of chronic obstructive airways disease Condition: Stable Prescriptions: New doxycycline hyclate 100 mg capsule 100 mg PO BID 10 Days Qty: 20 0RF Medrol (Jj) 4 mg tablets,dose pack See Rx Instructions .ROUTE .COMPLEX Qty: 21 0RF Rx Instructions: orally per package directions albuterol sulfate 90 mcg/actuation HFA aerosol inhaler 2 inh INHALATION Q4H PRN (Reason: shortness of breath or wheezing) Qty: 18 0RF No Action fenofibrate 54 mg tablet 54 mg PO QAM Qty: 90 3RF aspirin 325 mg tablet 325 mg PO DAILY alprazolam 0.25 mg tablet 0.25 mg PO BEDTIME PRN (Reason: Sleep) Qty: 30 5RF furosemide 40 mg tablet See Rx Instructions .ROUTE .COMPLEX Qty: 90 3RF Dose Instruction: TAKE 1 & 1/2 (ONE & ONE-HALF) TABLETS BY MOUTH IN THE MORNING FOR EDEMA Rx Instructions: TAKE 1 & 1/2 (ONE & ONE-HALF) TABLETS BY MOUTH IN THE MORNING FOR EDEMA albuterol sulfate 90 mcg/actuation HFA aerosol inhaler 2 puff INHALATION Q6H PRN (Reason: Shortness Of Breath) amiodarone 200 mg tablet 200 mg PO DAILY levothyroxine 100 mcg tablet 100 mcg PO DAILY potassium chloride 10 mEq tablet extended release 10 meq PO DAILY Rx Instructions: take it with the Lasix polyethylene glycol 3350 [Miralax] 17 gram powder in packet 17 g PO QAM clopidogrel 75 mg tablet 75 mg PO DAILY Procto-Med HC 2.5 % cream with perineal applicator 1 applic HI PRN Discharge Orders: Discharge ED (Routine); Ordered 02/17/24 Ordered By: Dick Ibrahim Discharge Diet: Usual diet Discharge Activity: Increase activity as tolerated Patient Instructions: Opioid Safety, Pain Management Activity Restrictions/Additional Instructions: Thank you for choosing [facility] for your healthcare needs today. It is very important that you follow up as instructed or that you return to the Emergency Department should you have concerns or if your condition changes or worsens in any way. You are seen due to complaints shortness of breath chest x-ray did not show any acute changes your cardiac enzymes and EKGs did not show any sign of acute coronary syndrome. Will treat you for an exacerbation of COPD with a short course of doxycycline start prednisone taper tomorrow and use albuterol regularly. Return if you have further problems. Coding Level of Care Code ED Despatching And Receiving Clerk for Adan Haro
[2024-02-17 09:18] VITALS: BP 130/98; PULSE 72; O2SAT 94
[2024-02-17 09:26] LABS: Add Urine Microscopic? YES; Bilirubin Urine Neg (Negative); Blood Urine 2+ (Negative); Glucose Urine UA Norm (Normal); Ketones Urine Negative (Negative); Leukocyte Esterase Urine Negative (Negative); Nitrate Urine Negative (Negative); Protein Urine Neg (Negative); Specific Gravity, Urine 1.015 (1.005-1.030); Urine Appearance Clear (CLEAR); Urine Color Yellow (Yellow); Urobilinogen Urine Norm (Negative); pH Urine 5 (5-7)
[2024-02-17 09:33] LABS: ABG PCO2 33.7 mmHg (35-45); ABG PH Result 7.48 (7.35-7.45); Alveolar-Arterial Oxygen Gradi 5.4 mmHg (5-10); Arterial Blood Gas Hematocrit 41.4 % (37-47); Base Excess ABG 2.1 mmol/L (-2.0-2.0); Blood Gas Allen Test Pos; Blood Gas Sample Site Radial, right; Blood Gas Sample Type Arterial; Carboxyhemoglobin 0.2 %THgb (0.4-20.1); HCO3 ABG 25.2 mmol/L (22-26); HGB O2 Sat 92.4 % (95-100); Ionized Calcium Level - ABG 1.1 mmol/L (1.1-1.4); Methemoglobin 0.6 % (0.4-1.5); Oxygen Saturation ABG 93.2; PO2 ABG 66.4 mmHg (80.0-100.0); PO2 FiO2 Ratio Arterial Blood 316; Potassium Level - ABG 3.7 mmol/L (3.5-5.0); Total Hemoglobin 13.5 g/dL (12-16)
[2024-02-17] MEDS: ipratropium-albuterol 3 mL Neb INHALATION (09:37)
[2024-02-17 09:38] VITALS: PULSE 69; RESP 16; O2SAT 96
[2024-02-17 09:40] LABS: Add Urine Culture? No; Mucus Urine TRACE /hpf; RBC Urine 0-4 /hpf (0-2); Transitional Epi Cells Urine 0-4 /hpf
[2024-02-17 09:53] LABS: Basophils # 0.1 10^3/uL (0.0-0.1); Basophils % 2.1 %; Eosinophils % 0.3 %; Hematocrit 45.5 % (36-47); Lymphocytes # 1.8 10^3/uL (0.8-4.8); Lymphocytes % 26.4 %; Mean Corpuscular Hemoglobin 28.8 pg (27-33); Mean Corpuscular Volume 92.9 fl (85-98); Mean Platelet Volume 9.4 fL (7.4-10.4); Monocytes # 0.5 10^3/uL (0.2-0.9); Monocytes % 7.7 %; Neutrophils # 4.28 10^3/uL (1.8-7.7); Neutrophils % 63.1 %; Nucleated Red Blood Cells % 0 %; Platelet Count 330 10^3/cmm (157-399); Red Cell Distribution Width 16.4 % (12.1-15.1); White Blood Count 6.78 10^3/uL (3.29-11.43)
[2024-02-17 10:10] LABS: Alanine Aminotransferase 11 U/L (0-33); Albumin Level 4.1 g/dL (3.5-5.2); Alkaline Phosphatase 70 U/L (35-105); Anion Gap 17.9 (5-19); Aspartate Amino Transferase 23 U/L (0-32); Blood Urea Nitrogen 17 mg/dL (8-23); Carbon Dioxide 24 mmol/L (22-29); Chloride 104 mmol/L (98-107); Globulin 3.5 g/dL (1.3-4.6); Glucose 110 mg/dL (65-115); Magnesium 2.1 mg/dL (1.7-2.3); Osmolality Calculated 296 mOsm/kg (285-295); Potassium 3.9 mmol/L (3.5-5.1); Sodium 142 mmol/L (136-145); Total Bilirubin 0.9 mg/dL (0.15-1.2); Total Protein 7.6 g/dL (6.6-8.7)
[2024-02-17 10:11] LABS: Lactic Sepsis W/Reflex 1.4 mmol/L (0.5-2.2); Troponin(5th) Baseline 21 ng/L (0-10)
[2024-02-17 10:13] LABS: Creatinine Clr Calc Pharmacy 36.2517
--- NOTE | 2024-02-17 10:34 | ECG_ITS ---
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 Measurements Intervals [place] Rate: 69 P: 49 RI: 195 QRS: -7 QRSD: 90 T: 81 QT: 442 QTc: 476 Interpretive Statements SINUS RHYTHM POSSIBLE LEFT VENTRICULAR HYPERTROPHY [VOLTAGE CRITERIA PLUS LAE OR QRS WIDENING] INFERIOR MYOCARDIAL INFARCTION , OF INDETERMINATE AGE [40+ ms Q WAVE AND/OR ST/T ABNORMALITY IN II/aVF] ST elevations in leads V3 ,V4 suggestive of anterior wall SD Compared to ECG 11/19/2023 01:03:38 Atrial flutter no longer present Myocardial infarct finding still present Electronically Signed On 02-18-2024 1:04:32 CDT by Yazan Angelo M.D. [id number]
[2024-02-17 10:38] LABS: Oxygen Device ROOM AIR
[2024-02-17 12:19] LABS: Troponin 5 2HR 20.11 ng/L (0-10)
[2024-02-17 12:35] LABS: Troponin 5 2HR Delta -0.89 ABS# (0-10)
[2024-02-17 13:32] VITALS: BP 137/87; PULSE 69; O2SAT 92
[2024-02-17 13:44] VITALS: BP 137/87; PULSE 69; RESP 16; O2SAT 92
== END 2024-02-17 13:45 | disposition home or self-care (01) ==
PROVIDERS: Emergency Provider Family Medicine
DX: J44.1 Chronic obstructive pulmonary disease with (acute) exacerbation (principal); Z79.02 Long term (current) use of antithrombotics/antiplatelets; Z87.891 Personal history of nicotine dependence; I25.10 Atherosclerotic heart disease of native coronary artery without angina pectoris; I11.0 Hypertensive heart disease with heart failure; I50.9 Heart failure, unspecified
CPT/HCPCS: 36415; 36600; 71045; 80051; 80053; 81001; 82330; 82805; 83605; 83735; 84484; 85025; 87040; 93005; 94640; 99285

== ENCOUNTER → 2024-03-01 13:35 | Outpatient (BNVA) | payer MEDICARE, MEDICAID, SELFPAY | PROVIDERS: Visit Provider Internal Medicine | DX: Z45.02 Encounter for adjustment and management of automatic implantable cardiac defibrillator (principal) | CPT/HCPCS: 93296 ==

== ENCOUNTER → 2024-05-10 13:41 | Outpatient (BNVA) | payer MEDICARE, MEDICAID, SELFPAY | PROVIDERS: PCP Family Medicine; Visit Provider Internal Medicine | DX: I48.91 Unspecified atrial fibrillation (principal); I25.5 Ischemic cardiomyopathy; I11.0 Hypertensive heart disease with heart failure; I50.9 Heart failure, unspecified; Z87.891 Personal history of nicotine dependence | CPT/HCPCS: 99214 ==

== ENCOUNTER → 2024-06-08 09:43 | Outpatient (BNVA) | payer MEDICARE, MEDICAID, SELFPAY | PROVIDERS: PCP Family Medicine; Visit Provider Internal Medicine Cardiovascular Disease | DX: Z45.02 Encounter for adjustment and management of automatic implantable cardiac defibrillator (principal) | CPT/HCPCS: 93296 ==

== ENCOUNTER → 2024-11-16 14:47 | Outpatient (BNVA) | payer MEDICARE, MEDICAID, SELFPAY | PROVIDERS: PCP Family Medicine; Visit Provider Internal Medicine | DX: I48.91 Unspecified atrial fibrillation (principal); Z79.01 Long term (current) use of anticoagulants; Z79.82 Long term (current) use of aspirin; I11.0 Hypertensive heart disease with heart failure; I50.9 Heart failure, unspecified; I25.5 Ischemic cardiomyopathy; Z87.891 Personal history of nicotine dependence | CPT/HCPCS: 99214 ==

== ENCOUNTER → 2024-11-22 10:14 | Outpatient (BNVA) | payer MEDICARE, MEDICAID, SELFPAY | PROVIDERS: PCP Family Medicine; Visit Provider Internal Medicine Cardiovascular Disease | DX: Z45.02 Encounter for adjustment and management of automatic implantable cardiac defibrillator (principal) | CPT/HCPCS: 93296 ==

== ENCOUNTER 2025-03-29 13:17 | Inpatient (IN) | payer OTHER, MEDICAID, SELFPAY ==
[2025-03-29 13:21] VITALS: BP 117/61; PULSE 51; RESP 16; TEMP 36.8; O2SAT 88; BMI 23.4
--- NOTE | 2025-03-29 13:25 | XR_ITS ---
WS: [id number] Right hip, AP and frog-leg views, 03/29/2025 Clinical Data: fall Comparison: Right hip, 05/01/2010 Findings: There is a femoral neck fracture. The femoral head remains in the acetabulum. The adjacent pelvis shows no fractures. The SI joints and the pubic symphysis are unremarkable. The soft tissues are normal. XR/XR hip RT 2-3V wo/w pel* [id number] Impression: Right femoral neck fracture.
--- NOTE | 2025-03-29 13:30 | ECG_ITS ---
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 Measurements Intervals [place] Rate: 51 P: 0 FL: 0 QRS: 97 QRSD: 110 T: 94 QT: 472 QTc: 436 Interpretive Statements Multifocal atrial rhythm BORDERLINE RIGHT AXIS DEVIATION [QRS AXIS > 90] POSSIBLE ANTERIOR MYOCARDIAL INFARCTION , OF INDETERMINATE AGE [30 ms Q WAVE IN V3/V4, OR R < 0.2 mV IN V4] Compared to ECG 02/17/2024 10:38:13 Sinus rhythm no longer present Myocardial infarct finding still present Electronically Signed On 03-30-2025 20:40:03 CDT by Yazan Angelo M.D. [id number]
--- NOTE | 2025-03-29 13:30 | ED_ITS ---
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 Patient reportedly fell at home next to her couch, EMS was called by [id number] who the patient lives with. Upon EMS arrival patient was seated in the couch, however suspicion for right hip injury as patient complains of pain with any movement of the right leg at the hip. Reportedly did not hit her head or lose conscious, though is on a blood thinner. Patient reporting 0/10 pain while sitting still, however it shoots up to a 10/10 with any movement, so 100 mcg fentanyl given prehospital as well as 4 mg of Zofran. Per EMS, there was no significant downtime or signs of face head or neck injury. However there is a laceration to her left arm. On arrival there is obvious shortening and rotation externally of the right lower extremity, however patient not endorsing any focal neurologic deficits. Patient was slightly hypoxic prehospital so was placed on 2 L of oxygen, fluids were also administered as she was slightly hypotensive at 90 systolic. Patient is at baseline orientation, no complaints at this time. No previous fracture or injury to her right hip. Patient tells me she believes she just lost her footing which caused her to fall. She does not report any concerning symptoms that preceded her fall. Denies any chest pain or shortness of breath at this time. MD complaint: fall Onset (ago): hour(s) (1) Fall from: standing Fall witnessed: yes, by family Place fall occurred: home Loss of consciousness: None Prolonged down time: no Symptoms prior to fall: none Context: tripped/slipped Location of injury: pelvis (rt hip) Associated symptoms-after fall: Denies abdominal pain, chest pain, headache(s), lightheadedness or neck pain Related Data Home Medications ?Medication ?Instructions ?Recorded ?Confirmed polyethylene glycol 3350 17 gram 17 g PO QAM 11/06/22 11/16/24 oral powder packet (Miralax) levothyroxine 100 mcg tablet 100 mcg PO DAILY 11/11/23 11/16/24 aspirin 325 mg tablet 325 mg PO DAILY 02/11/24 mineral oil 15 ml PO DAILY PRN 05/10/24 11/16/24 Previous Rx's ?Medication ?Instructions ?Recorded alprazolam 0.25 mg tablet 0.25 mg PO BEDTIME PRN Sleep #30 11/11/23 tabs albuterol sulfate 90 mcg/actuation 2 inh inhalation Q4 H PRN shortness 02/17/24 aerosol inhaler of breath or wheezing #18 gr ams clopidogrel 75 mg tablet See Rx Instructions .Route 1 .COMPLEX #90 tabs metoprolol tartrate 25 mg tablet See Rx Instructions . Route 09/04/24 .COMPLEX #30 tabs furosemide 40 mg tablet See Rx Instructions .Route 0 10/31/24 .COMPLEX #135 tabs potassium chloride 10 mEq See Rx Instructions .Route 0 11/30/24 tablet,extended release .COMPLEX #180 tabs amiodarone 200 mg tablet See Rx Instructions .Route 0 01/11/25 .COMPLEX #90 tabs Allergies Allergy/AdvReac Type Severity Reaction Status Date / Time atorvastatin (From Lipitor) Allergy ADR-Muscle Verified 11/16/24 14:55 Pain Review of Systems 2 General: Reports: 10 or more systems reviewed and unremarkable except in HPI and below Const: Reports: other (fall); Denies: fever(s), chills or fatigue Eyes: Denies: change in vision ENMT: Denies: throat pain, ear or mastoid pain or nasal discharge Card: Denies: chest pain, palpitations, swelling of feet/ankles or lightheadedness Resp: Denies: dyspnea, productive cough or wheezing GI: Denies: abdominal pain, nausea, vomiting, diarrhea or constipation : Denies: flank pain, difficulty voiding, dysuria or urinary frequency Musc: Reports: joint pain (rt hip) and limited range of motion (rt hip); Denies: neck pain or back pain Skin/Breast: Reports: new lesions (lac to left forearm); Denies: rash Neuro: Denies: headache(s), numbness in extremities or weakness in extremities PFSH ED 2 PFSH: Medical History Hypothyroid Coronary artery disease Cardiogenic shock Congestive heart failure Blood in stool POP-Q stage 3 rectocele Rectocele Cystocele Diverticulosis Chronic episodic atrial fibrillation Afib Shortness of breath Hypertension Surgical History AICD (automatic cardioverter/defibrillator) present History of colonoscopy with polypectomy 2018 H/O total knee replacement right knee History of tubal ligation Hx of appendectomy H/O: hysterectomy H/O thyroidectomy Family History Father , unknown age CAD (coronary artery disease) Brother , age unknown Cancer colon Sister Cancer lungs Mother , in late 60s Lung disease Denies family history of Colon cancer Ovarian cancer Diabetes Clotting disorder Hyperlipidemia Chronic kidney disease (CKD) Breast cancer Suicide Anesthesia complication Bleeding disorder Uterine cancer Thyroid disease Stroke Social History Smoking and tobacco/nicotine status: former use of tobacco/nicotine Alcohol intake: never Substance/Drug Use: never Current occupational status: retired Physical Exam 2 Const: COMMON NORMALS: no acute distress, patient oriented x3, no limitations and alert GENERAL APPEARANCE: cooperative ORIENTATION/CONSCIOUSNESS: Yes awake OTHER: nontoxic appearing HENMT: COMMON NORMALS: normocephalic and atraumatic HEAD & SCALP: n ormocephalic and atraumatic OTHER: No signs of face head or neck trauma. Negative Vázquez sign, negative raccoon eyes. Eye: COMMON NORMALS: Equal, round and reactive pupils present and EOMs intact bilaterally PUPIL: Yes Equal, round and reactive pupils present Neck/C-Spine: COMMON NORMALS: full ROM CERVICAL SPINE: Yes cervical ROM normal OTHER: Negative C-spine tenderness. Chest: COMMONS NORMALS: normal inspection of the chest and normal palpation of entire chest wall Resp: COMMON NORMALS: normal respiratory effort, No retractions, No use of accessory muscles and clear to auscultation bilaterally AUSCULTATION: clear to auscultation bilaterally Cardio: COMMON NORMALS: Peripheral pulses 2+ throughout RATE: bradycardic RHYTHM: abnormal rhythm irregularly irregular PERIPHERAL PULSES: Peripheral pulses 2+ throughout GI: COMMON NORMALS: Normal to inspection, nondistended, normoactive bowel sounds present, Soft to palpation and non-tender PALPATION: Yes Soft to palpation Extremity: NARRATIVE EXTREMITY EXAM: Shortening and external rotation of the right hip. Tender to palpation to right posterolateral hip. Positive logroll examination. Distal pulses to the right lower extremity are palpable. No sensation discrepancies. Bilateral varicosities. Neuro: COMMON NORMALS: patient oriented x3, moves all extremities, no focal motor deficits and no sensory deficits noted SENSORIUM/ORIENTATION: Yes alert Skin: NARRATIVE SKIN EXAM: Laceration/skin tear to left forearm Course 2 Vital Signs: Vital signs: Vital Signs Temperature 98.2 F 03/29/25 13:21 Pulse Rate 58 L 03/29/25 15:48 Respiratory Rate 16 03/29/25 13:21 Blood Pressure 117/61 03/29/25 13:21 Pulse Oximetry 100 03/29/25 15:48 Oxygen Delivery Me thod Room Air 03/29/25 13:21 MDM - Fall Medical Decision Making Brought in by ambulance after a fall occurred about an hour prior to arrival. [id number] had called the ambulance due to the fall and there was concern immediately for right hip fracture as there was shortening and external rotation of the leg. Pain controlled fentanyl given by ambulance prehospital, patient's pain has been stable here in the ED. Neurovascular status is intact by exam, however there is limited movement secondary to x-ray showing right femoral neck fracture. She is on blood thinner, however there was no reports of striking her head and no evidence of head or neck trauma by exam. Preoperative labs obtained, EKG also obtained and she is cleared for admission. I spoke with orthopedics, Dr. Mccrary, stating to make the patient n.p.o. after midnight and he will consult in the morning. Spoke to Dr. Burgess, hospitalist, agreed to accept the patient he will go [facility]. Informed family of plan for admission, all other questions and concerns addressed. Cath urine being obtained at this time. Lab Data 03/29/25 12:42 03/29/25 12:42 Radiology Impressions Hip/Pelvis X-Ray 03/29/25 13:25 Impression: Right femoral neck fracture. Laboratory Results WBC 5.07 10^3/uL (3.29-11.43) 03/29/25 12:42 RBC 4.41 10^6/uL (3.85-5.65) 03/29/25 12:42 Hgb 11.90 g/dL (11.27-16.99) 03/29/25 12:42 Hct 39.1 % (36-47) 03/29/25 12:42 MCV 88.7 fl (85-98) 03/29/25 12:42 MCH 27.0 pg (27-33) 03/29/25 12:42 MCHC 30.4 g/dL (30-55) 03/29/25 12:42 RDW 15.9 % (12.1-15.1) H 03/29/25 12:42 Plt Count 217 10^3/cmm (157-399) 03/29/25 12:42 MPV 9.5 fL (7.4-10.4) 03/29/25 12:42 Neut % (Auto) 67.7 % 03/29/25 12:42 Lymph % (Auto) 18.9 % 03/29/25 12:42 [place] % (Auto) 11.2 % 03/29/25 12:42 Eos % (Auto) 0.4 % 03/29/25 12:42 Baso % (Auto) 1.2 % 03/29/25 12:42 Neut # (Auto) 3.43 10^3/uL (1.8-7.7) 03/29/25 12:42 Lymph # (Auto) 1.0 10^3/uL (0.8-4.8) 03/29/25 12:42 [place] # (Auto) 0.6 10^3/uL (0.2-0.9) 03/29/25 12:42 Eos # (Auto) 0.0 10^3/uL (0.0-0.8) 03/29/25 12:42 Baso # (Auto) 0.1 10^3/uL (0.0-0.1) 03/29/25 12:42 Nucleated RBC % (auto) 0 % 03/29/25 12:42 Nucleated RBCs # 0.0 /100WBC 03/29/25 12:42 PT 15.20 SECONDS (12.1-14.9) H 03/29/25 12:42 INR 1.12 (0.8-1.2) 03/29/25 12:42 APTT 28.3 SECONDS (23.9-36.7) 03/29/25 12:42 Sodium 141 mmol/L (136-145) 03/29/25 12:42 Potassium 3.8 mmol/L (3.5-5.1) 03/29/25 12:42 Chloride 100 mmol/L (98-107) 03/29/25 12:42 Carbon Dioxide 27 mmol/L (22-29) 03/29/25 12:42 Anion Gap 17.8 (5-19) 03/29/25 12:42 BUN 25 mg/dL (8-23) H 03/29/25 12:42 Creatinine 0.9 mg/dL (0.5-0.9) 03/29/25 12:42 GFR Calculation Not Reportable 03/29/25 12:42 Glucose 91 mg/dL (65-115) 03/29/25 12:42 Calculated Osmolality 296 mOsm/kg (285-295) H 03/29/25 12:42 Calcium 9.2 mg/dL (8.5-10.5) 03/29/25 12:42 Total Bilirubin 1.2 mg/dL (0.15-1.2) 03/29/25 12:42 AST 21 U/L (0-32) 03/29/25 12:42 ALT 14 U/L (0-33) 03/29/25 12:42 Alkaline Phosphatase 81 U/L (35-105) 03/29/25 12:42 Total Protein 7.7 g/dL (6.6-8.7) 03/29/25 12:42 Albumin 4.1 g/dL (3.5-5.2) 03/29/25 12:42 Globulin 3.6 g/dL (1.3-4.6) 03/29/25 12:42 All radiology interpretation(s) finalized by discharge EKG Data EKG 1: I personally reviewed and interpreted this EKG as follows: EKG interpretation date: 03/29/25 EKG interpretation time: 13:30 Prior EKG tracings: available for review Interpretation: 1330: Atrial fibrillation with slow ventricular response. Rate 51. No acute ST segment changes. Reviewed with physician. Discharge Plan Discharge Patient Disposition: Admitted As Inpatient Clinical Impression: Fracture of femoral neck, right, closed Qualifiers: Encounter type: initial encounter Qualified Code(s): S72.001A - Fracture of unspecified part of neck of right femur, initial encounter for closed fracture Condition: Stable Coding Level of Care Code ED Long Wall Mining Machine Helper for Adan Haro
--- OUTSIDE RECORDS SUMMARY | 2025-03-29 13:31 | XMS_ITS | Clinical Summary ---
Author Organization [facility] Address [address] [place] [id number] Care Team Providers Care Strip Presser Name Role Phone Lisa Nunn Primary Care Provider [phone] Allergies Active Allergy Reactions Criticality Noted Date Comments Atorvastatin Other (see comments) Low 11/28/2020 Other Reaction(s): ADR-Muscle Pain Medications albuterol HFA (PROVENTIL HFA;VENTOLIN HFA) 108 (90 Base) MCG/ACT inhaler Inhale 2 puffs every 6 (six) hours if needed 4 Active Acetaminophen 325 MG capsule Take 325 mg by mouth every 4 (four) hours if needed 4 Active levothyroxine (SYNTHROID, LEVOTHROID) 100 MCG tablet Take 100 mcg by mouth in the morning. 4 Active metoprolol succinate XL (TOPROL XL) 25 MG 24 hr tablet Take 25 mg by mouth in the morning. 4 Active fenofibrate (TRICOR) 54 MG tablet Take 1 tablet by mouth 1 (one) time each day 3 Active Dapagliflozin Propanediol 10 MG tablet Take 10 mg by mouth in the morning. 3 Active apixaban (Eliquis) 5 MG tablet Take 5 mg by mouth in the morning and 5 mg in the evening. 3 Active amiodarone (PACERONE) 200 MG tablet Take 1 tablet by mouth in the morning. 2 Active ALPRAZolam (XANAX) 0.25 MG tablet Take 1 tablet by mouth at night if needed 3 Active furosemide (LASIX) 40 MG tablet Take 60 mg by mouth 1 (one) time each day Active clopidogrel (PLAVIX) 75 MG tablet Take 75 mg by mouth 1 (one) time each day Active aspirin (Aspirin Adult) 325 MG tablet Take 325 mg by mouth in the morning. Active traMADol (ULTRAM) 50 MG tablet Take 50-100 mg by mouth every 6 (six) hours if needed Active potassium chloride (KLOR-CON M10) 10 MEQ CR tablet Take 10 mEq by mouth every other day Active polyethylene glycol (GLYCOLAX) 17 GM/SCOOP powder Take 17 g by mouth 1 (one) time each day Active mineral oil liquid Take 30 mL by mouth 1 (one) time each day if needed for constipation Active HYDROcodone-adalberto taminophen (NORCO) 7.5-325 MG per tablet Take 1 tablet by mouth 1 (one) time if needed for moderate pain Active Active Problems No known active problems Encounters Date Type Department Care Team Description 02/06/2025 9:40 AM CDT Office Visit [facility] [address] [place] [address] Oliva Pace MD Stage 3a chronic kidney disease (HCC) (Primary Dx); Hypertensive chronic kidney disease with stage 1 through stage 4 chronic kidney disease, or unspecified chronic kidney disease; Congestive heart failure, not otherwise specified (HCC) 02/01/2025 Telephone [facility] [address] [facility] [address] [place] [address] Babita Godoy MA from Last 3 Months Family History Medical History Relation Comments Heart disease Father Relation Status Comments Father Mother Social History Tobacco Use Types Packs/Day Years Used Date Smoking Tobacco: Former Cigarettes Smokeless Tobacco: Never Tobacco Cessation:Counseling Given: Not Answered Alcohol Use Standard Drinks/Week Comments Not Currently 0 (1 standard drink = 0.6 oz pur e alcohol) Comments Unknown Sex and Gender Information Value Date Recorded Sex Assigned at Not on file Legal Sex Female 10:26 AM EDT Gender Identity Not on file Sexual Orientation Not on file Last Filed Vital Signs Vital Sign Reading Time Taken Comments Blood Pressure 108/58 02/06/2025 9:51 AM CDT Pulse 50 02/06/2025 9:51 AM CDT Temperature - - Respiratory Rate - - Oxygen Saturation 97% 02/06/2025 9:51 AM CDT Inhaled Oxygen Concentration - - Weight 56.5 kg (124 lb 9.6 oz) 02/06/2025 9:51 A M CDT Height 160 cm (5' 3 ) 08/08/2024 2:44 PM PAYROLL HUMAN RESOURCES ASSISTANT Body Mass Index 22.07 08/08/2024 2:44 PM PAYROLL HUMAN RESOURCES ASSISTANT Plan of Treatment Health Maintenance Due Date Last Done Comments Pneumococcal Vaccine: 50+ Ye ars (1 of 2 - PCV) 11[birth year]04/1964 Influenza Vaccine (#1) 2025 05/04/2024 Hepatitis B Vaccine Aged Out No longe r eligible based on patient's age to complete this topic Insurance [facility] Dual Elig [facility] Medicaid [place] ([facility]) Care Teams Strip Presser Relationship Specialty Start Date End Date Lisa Nunn DO [address] [place] [address] PCP - General Family Medicine 08/08/24
--- OUTSIDE RECORDS SUMMARY | 2025-03-29 13:31 | XMS_ITS | Encounter Summary ---
Author Organization [facility] Address [address] [place] [address] Phone Care Team Providers Care Piece Goods Packer Name Role Phone Lisa Nunn DO Primary Care Provider [phone] Encounter Details Date Type Department Care Team (Late st Contact Info) Description 11/10/2023 Orders Only [facility] [address] [facility] [address] [place] [address] Chronic kidney disease, stage 4 (severe) (HCC) Social History Tobacco Use Types Packs/Day Years Used Date Smoking Tobacco: Never Assessed Comments Unknown Sex and Gender Information Value Date Recorded Sex Assigned at Not on file Legal Sex Female 10:26 AM EDT Gender Identity Not on file Sexual Orientation Not on file documented as of this encounter Plan of Treatment Not on file documented as of this encounter Visit Diagnoses Diagnosis Chronic kidney disease, stage 4 (severe) (HCC) documented in this encounter Care Teams Piece Goods Packer Relationship Specialty Start Date End Date Lisa Nunn DO [address] [place] [address] PCP - General Family Medicine 08/08/24 documented as of this encounter
--- OUTSIDE RECORDS SUMMARY | 2025-03-29 13:31 | XMS_ITS | Encounter Summary ---
Author Organization [facility] Address [address] [place] [address] Care Team Providers Care Superintendent Measurement Name Role Phone Lisa Palacios DO Primary Care Provider [phone] Reason for Visit * Reason Onset Date Comments Needs Orders Written 05/15/2021 Encounter Details Date Type Department Care Team (Late st Contact Info) Description 05/15/2021 Telephone [facility] [address] [place] [id number] Lisa Palacios, DO [address] [place] [address] Needs Orders Written Social History Tobacco Use Types Packs/Day Years Used Date Smoking Tobacco: Former Cigarettes Smokeless Tobacco: Never Alcohol Use Standard Drinks/Week Comments Not Currently 0 (1 standard drink = 0.6 oz pur e alcohol) Comments Unknown Sex and Gender Information Value Date Recorded Sex Assigned at Not on file Legal Sex Female 10:20 AM CDT Gender Identity Not on file Sexual Orientation Not on file documented as of this encounter Miscellaneous Notes * Telephone Encounter - Zoe Miguel - 05/20/2021 8:21 AM CDT Spoke with Alyssa and she will try to roller picker stool supplies this week. Alyssa will give information to pt. Gave msg that Makeda will order night O2. * Telephone Encounter - Makeda Hanley FNP - 05/20/2021 7:42 AM CDT I will order night O2. If she wants to get supplies to test her stool she can do so. * Telephone Encounter - Zoe Miguel - 05/19/2021 5:19 PM CDT Spoke with Alyssa and gave msg. PT had already done an overnight oxygen test and sent it back. Pt does have straight liquid stools most of the time. Everything pt eats goes through her. * Telephone Encounter - Makeda Hanley FNP - 05/19/2021 3:30 PM CDT Patient will have to have overnight oxygen test to see if she qualifies. Does she wish to have thisordered? The only way the lab will test her stool is if it is liquid. Is she having straight liquidstools? * Telephone Encounter - Luzmaria Reynoso LPN - 05/19/2021 2:39 PM CDT This was supposed to go to [facility]. * Telephone Encounter - Lisa Palacios DO - 05/15/2021 11:12 PM CDT I don't know anything about this. * Telephone Encounter - Zoe Miguel - 05/15/2021 2:13 PM CDT Spoke with Daughter and pt is wanting O2 at night. PT is wanting results on Colonoscopy. PT is still having diarrhea and losing wt. PT's daughter is interested in pt doing a stool sample please. * Telephone Encounter - Dejan Messer - 05/15/2021 8:50 AM CDT PT daughter is calling in for pt about pt needing oxygen at night and pt insurance would pay for it. PT daughter is stating DR. palacios asked if pt would like to get oxygen at night and pt daughter is callilng back saying pt would like to do it if the insurance would cover it. Pt would like a call back. Call back# [phone] documented in this encounter Plan of Treatment Upcoming Encounters Date Type Department Care Team (Late st Contact Info) Description 05/10/2025 11:00 AM CDT Office Visit [facility] [address] [facility] [place] [phone] Lisa Palacios DO [address] [place] [facility] [place] [phone] documented as of this encounter Visit Diagnoses Not on filedocumented in this encounter Additional Health Concerns Infection Onset Date Last Indicated Resolved Time R/O COVID-19 07/22/2024 07/22/2024 07/22/2024 9:09 AM AMPHIBIOUS OPERATIONS OFFICER R/O COVID-19 08/30/2024 08/30/2024 08/30/2024 4:22 PM AMPHIBIOUS OPERATIONS OFFICER documented as of this encounter Care Teams Superintendent Measurement Relationship Specialty Start Date End Date Lisa Palacios DO [address] [facility] [phone] PCP - General 12/30/20 documented as of this encounter
--- OUTSIDE RECORDS SUMMARY | 2025-03-29 13:31 | XMS_ITS | Encounter Summary ---
Author Organization [facility] Address [address] [place] [address] Care Team Providers Care Genetic Coordinator Name Role Phone Lisa Nunn DO Primary Care Provider [phone] Reason for Visit * Reason Onset Date Comments Results 01/29/2025 Patient Communication Encounter Details Date Type Department Care Team (Late st Contact Info) Description 01/29/2025 Results Follow-Up [facility] [place] [address] [place] [address] Lisa Nunn, DO [address] [place] [address] URINALYSIS WITH REFLEX CULTURE Social History Tobacco Use Types Packs/Day Years Used Date Smoking Tobacco: Former Cigarettes Passive Smoke Exposure: Past Smokeless Tobacco: Never Alcohol Use Standard Drinks/Week Comments Not Currently 0 (1 standard drink = 0.6 oz pur e alcohol) Financial Resource Strain Answer Date R ecorded How hard is it for you to pa y for the very basics like food, housing, medical care, and heating? Not hard at all 01/28/2022 Food Insecurity Answer Date Recorded In the past 12 months, have you worried that your food would run out before you had money to buy more? Never true 01/28/2022 In the past 12 months, did y ou run out of food and didn't have money to buy more? Never true 01/28/2022 Transportation Needs Answer Date Record ed In the past 12 months, has l ack of transportation kept you from medical appointments or from getting medications? No 01/28/2022 Lack of Transportation (Non-Medical) Not on file 01/28/2022 Feeling Safe Answer Date Recorded Are you in a relationship wi th someone who hurts you emotionally and/or physically? No 12/01/2024 Comments No Sex and Gender Information Value Date Recorded Sex Assigned at Not on file Legal Sex Female 10:20 AM CDT Gender Identity Not on file Sexual Orientation Not on file documented as of this encounter Miscellaneous Notes * Telephone Encounter - Cecille Ventura LPN - 01/29/2025 4:47 PM CDT 01/29/2025 4:47 PM Called and notified daughter,on PHI of results. Voiced understanding. Daughter said pt is NOT having symptoms, they went away. Cecille PRUITT * Telephone Encounter - Shonda Mcmahon - 01/29/2025 2:33 PM CDT Copied from [facility] #[id number]. Topic: CPA Information Request >> Jan 29, 2025 2:32 PM Shonda Hwang wrote: Caller is returning phone call from clinic. Caller Name: Jyoti - daughter Patient/Caregiver Callback Number: [phone] (mobile) Clinic Left Note In Chart Is there a note from the clinic requesting the caller be transferred when they call back? No Are the credentials of the caregiver who called the patient roadway designer? Yes Call Notes: Communicated information that is documented in the note. Caller wants a call back from clinic. - advised nurse would call for lab results - she stated that her mother is feeling better and the spotting went away * Telephone Encounter - Cecille Ventura LPN - 01/29/2025 2:13 PM CDT 01/29/2025 2:13 PM Attempted to contact pt to discuss lab results and to get an update on how she is doing. No answer,LVM for a call back. Cecille PRUITT * Telephone Encounter - Cecille Ventura LPN - 01/29/2025 2:13 PM CDT ----- Message from Dr. Lisa Nunn sent at 01/29/2025 10:19 AM CDT ----- Call and check on this patient. She was having uti symptoms but her urine didn't grow out infection. See if she has any symptoms now? documented in this encounter Plan of Treatment Upcoming Encounters Date Type Department Care Team (Late st Contact Info) Description 05/10/2025 11:00 AM CDT Office Visit [facility] [address] [facility] [place] [id number] Lisa Nunn DO [address] [facility] [place] [address] documented as of this encounter Visit Diagnoses Not on filedocumented in this encounter Care Teams Genetic Coordinator Relationship Specialty Start Date End Date Lisa Nunn DO [address] [place] [facility] [place] [address] PCP - General 12/30/20 documented as of this encounter
--- OUTSIDE RECORDS SUMMARY | 2025-03-29 13:31 | XMS_ITS | Clinical Summary ---
Author Organization [facility] Jluis sanchez Weir Address [address] [place] [address] Phone Care Team Providers Care Rn Chronic Name Role Phone Lisa Nunn Primary Care Provider [phone] Allergies Active Allergy Reactions Criticality Noted Date Comments Atorvastatin Muscle Pain Low 11/28/2020 Medications amiodarone (CORDARONE) 200 mg tablet Take 1 Tablet by mouth daily. 06/19/20 22 Active polyethylene glycol 3350 (MIRALAX) 17 gram/dose PowderIndications: Chronic constipation Take 1 Scoop (17 Grams) by mouth daily. Dissolve in 8 ounces of fluid and drink entire liquid 527 Gram 5 08/03/19 23 Active clopidogreL 75 mg tablet Take 75 mg by mouth daily. Active aspirin (KAMAR) 325 mg tablet Take 325 mg by mouth daily. Active furosemide (LASIX) 40 mg tablet Take 40 mg by mouth every other day. Active potassium chloride (KLOR-CON M10) 10 mEq Extended Release tablet Take 10 mEq by mouth every other day. Active metoprolol tartrate (LOPRESSOR) 25 mg tablet Take 25 mg by mouth 2 times daily. Active traMADoL (ULTRAM) 50 mg tabletIndications: Chronic neck pain Take 1-2 Tablets (50-100 mg) by mouth every 6 hours as needed for Pain. 30 Tablet 08/10/19 25 Active levothyroxine 100 mcg tabletIndications: Acquired hypothyroidism TAKE 1 TABLET BY MOUTH ONCE DAILY IN THE MORNING 90 Tablet 3 09/01/19 25 Active albuterol sulfate HFA 90 mcg/actuation aerosol inhalerIndications :Chronic obstructive pulmonary disease, unspecified COPD type (CMS/HCC) INHALE 2 PUFFS BY MOUTH EVERY 6 HOURS NEEDED FOR SHORTNESS OF BREATH 9 Gram 09/08/19 25 Active mineral oil Oil Take 30 mL by mouth 1 time daily as needed for Constipation. Active diclofenac sodium (VOLTAREN) 1 % gel Apply 2-4 Grams to affected area 4 times daily. 100 Gram 6 10/05/19 25 Active ALPRAZolam (XANAX) 0.25 mg tabletIndications: Generalized anxiety disorder TAKE 1 TABLET BY MOUTH ONCE DAILY AT NIGHT NEEDED FOR ANXIETY 30 Tablet 03/19/20 25 Active HYDROcodone-acetam inophen (NORCO) 7.5-325 mg TabletIndications: Chronic neck pain,Chronic midline thoracic back pain Take 1 Tablet by mouth every 4 hours as needed for Pain, Moderate. Max Daily Amount: 6 Tablets 30 Tablet 03/19/20 25 Active HYDROcodone-acetam inophen (NORCO) 7.5-325 mg TabletIndications: Chronic neck pain,Chronic midline thoracic back pain Take 1 Tablet by mouth every 4 hours as needed for Pain, Moderate. Max Daily Amount: 6 Tablets 30 Tablet 01/30/20 25 025 Discontin ued(Reord er) ALPRAZolam (XANAX) 0.25 mg tabletIndications: Generalized anxiety disorder TAKE 1 TABLET BY MOUTH ONCE DAILY AT NIGHT NEEDED FOR ANXIETY 30 Tablet 02/16/20 25 025 Discontin ued(Reord er) Active Problems Problem Noted Date Diagnosed Date Stage 3b chronic kidney disease 01/09/2025 Frail elderly 10/14/2024 Essential (primary) hypertension 10/14/2024 Recurrent UTI 05/13/2024 CKD (chronic kidney disease) stage 4, GFR 15-29 ml/min 05/13/2024 History of postoperative delirium 12/05/2023 Statin myopathy 09/02/2023 Paroxysmal atrial fibrillation 03/30/2021 Chronic combined systolic an d diastolic congestive heart failure 03/30/2021 History of CVA (cerebrovascu lar accident) without residual deficits 03/30/2021 Hypothyroidism 12/30/2020 Encounters Date Type Department Care Team Description 03/19/2025 Refill [facility] [address] [place] [address] Lisa Nunn DO Generalized anxiety disorder; Chronic neck pain; Chronic midline thoracic back pain 03/14/2025 External Device Data [facility] ABSTRACTION Provider, Abstract 02/15/2025 Refill [facility] [address] [place] [address] Lisa Nunn, Generalized anxiety disorder 02/13/2025 External Device Data [facility] ABSTRACTION Provider, Abstract 02/05/2025 10:40 AM CDT Office Visit [facility] [address] [place] [address] GonzalesOctober, SHOT MAN Recurrent UTI (Primary Dx); CKD (chronic kidney disease) stage 4, GFR 15-29 ml/min ([facility]); Acquired hypothyroidism; Chronic combined systolic and diastolic congestive heart failure ([facility]); Essential (primary) hypertension; Paroxysmal atrial fibrillation ([facility]); Chronic neck pain; Chronic midline thoracic back pain; Frail elderly; Generalized anxiety disorder 01/29/2025 Results Follow-Up [facility] [address] [place] [address] Lisa Nunn, DO URINALYSIS WITH REFLEX CULTURE 01/29/2025 Refill [facility] [address] [place] [address] Lisa Nunn, Chronic neck pain; Chronic midline thoracic back pain 01/29/2025 Refill [facility] [address] [facility] [place] [address] Lisa Nunn, Generalized anxiety disorder 01/23/2025 9:30 AM CDT Procedure visit [facility] [address] [facility] [place] [address] 01/23/2025 Orders Only [facility] [address] [facility] [place] [address] Lisa Nunn, Recurrent UTI 01/23/2025 Telephone [facility] [address] [place] [address] Lisa Nunn DO Clinical Consult Before Scheduling 01/12/2025 Refill [facility] [address] [place] [address] Lisa Nunn DO Generalized anxiety disorder 01/10/2025 External Device Data [facility] ABSTRACTION Provider, Abstract 01/09/2025 11:40 AM CDT Office Visit [facility] [address] [place] [address] Lisa Nunn DO Acquired hypothyroidism (Primary Dx); Essential (primary) hypertension; Chronic combined systolic and diastolic congestive heart failure (CMS/HCC); Paroxysmal atrial fibrillation (CMS/HCC); Frail elderly; Stage 3b chronic kidney disease (CMS/HCC); Recurrent UTI; History of CVA (cerebrovascular accident) without residual deficits 01/08/2025 External Device Data Initial Department [address] [place]: [place] [address] [facility] Lewis from Last 3 Months Immunizations Immunization Administration Dates Next Due (SPIKEVAX) (12 YRS UP PRIMAR Y SERIES) COVID-19 VACCINE - MRNA-1273(PF) 100 MCG/0.5 ML IM SUSP 09/30/2020,08/30/2020 INFLUENZA VACCINE HIGH DOSE QUADRIVALENT 65 YR UP PF IM 04/17/2021 INFLUENZA VACCINE HIGH DOSE TRIVALENT SPLIT VIRUS, (65 YR UP), 0.5ML (PF), IM 05/04/2024 Influenza Seasonal Unspecified Formulation IM Family History Medical History Relation Name Comments Heart Disease Brother 1 Other Brother 2 twin twin at [facility] Heart Disease Brother 3 Cancer Brother 4 Diabetes Brother 5 Heart Disease Father Arthritis-osteo Mother Other Sister 1 twin twin at [facility] Cancer Sister 2 Diabetes Sister 3 Relation Name Status Comments Brother 1 Brother 2 twin Brother 3 Brother 4 Brother 5 Brother 6 Alive Brother 7 Father Mother Sister 1 twin Sister 2 Sister 3 Sister 4 Sister 5 Social History Tobacco Use Types Packs/Day Years Used Date Smoking Tobacco: Former Cigarettes Passive Smoke Exposure: Past Smokeless Tobacco: Never Tobacco Cessation:Counseling Given: No Alcohol Use Standard Drinks/Week Comments Not Currently [...] Sign Reading Time Taken Comments Blood Pressure 98/58 02/05/2025 9:58 AM CDT Pulse 86 02/05/2025 9:58 AM CDT Temperature 36.6 C (97.8 F) 02/05/2025 9:58 AM CDT Respiratory Rate 18 02/05/2025 9:58 AM CDT Oxygen Saturation 90% 02/05/2025 9:58 AM CDT Inhaled Oxygen Concentration - - Weight 56.2 kg (124 lb) 02/05/2025 9:58 AM CDT Height 160 cm (5' 3 ) 02/05/2025 9:58 AM CDT Body Mass Index 21.97 02/05/2025 9:58 AM CDT Plan of Treatment Upcoming Encounters Date Type Department Care Team (Late st Contact Info) Description 05/10/2025 11:00 AM CDT Office Visit [facility] [address] [place] [phone] Arline Lisa L, DO [address] [place] [phone] Health Maintenance Due Date Last Done Comments DTAP/TDAP/TD VACCINES (1 - Tdap) 11/04/1962 ZOSTER VACCINE (1 of 2) 11/04/1993 OSTEOPOROSIS SCREENING 11/04/2008 RSV VACCINE (60+ or ) (1 - 1-dose 75+ series) 11/04/2018 COVID-19 Vaccine ( - 2023-2 5 season) 2024 08/31/2021, 09/30/2020, 08/30/2020 INFLUENZA VACCINE (#1) 2025 , 04/08/2023, 04/16/2022, Additional history exists COLORECTAL SCREENING Discontinued 04/30/2021 Colorectal Cancer Screening Discontinued PNEUMOCOCCAL VACCINE 50+ YEARS Completed 04/16/2022 Medicare [place] ([place]) Preventative Visit/Annual Wellness Visit Completed 10/04/2024, 09/02/2023, 01/28/2022 FIT-DNA Q 3 years Discontinued FIT/FOBT Q 1 year Discontinued Flex Sig/CT Colonography Q 5 years Discontinued Procedures Procedure Name Priority Date/Time Associated Diagnosis Comments QUEST TEST IN QUESTION (ACTION NEEDED) (NO MY CHART) Routine 02/05/2025 10:59 AM CDT LIPID PANEL Routine 02/05/2025 10:59 AM CDT Acquired hypothyroidism Essential (primary) hypertension Chronic combined systolic and diastolic congestive heart failure (CMS/HCC) Paroxysmal atrial fibrillation (CMS/HCC) CBC WITH DIFFERENTIAL Routine 02/05/2025 10:59 AM CDT Acquired hypothyroidism Essential (primary) hypertension Chronic combined systolic and diastolic congestive heart failure (CMS/HCC) Paroxysmal atrial fibrillation (CMS/HCC) COMPREHENSIVE METABOLIC PANEL Routine 02/05/2025 10:59 AM CDT Acquired hypothyroidism Essential (primary) hypertension Chronic combined systolic and diastolic congestive heart failure (CMS/HCC) Paroxysmal atrial fibrillation (CMS/HCC) TSH Routine 02/05/2025 10:59 AM CDT Acquired hypothyroidism Essential (primary) hypertension Chronic combined systolic and diastolic congestive heart failure (CMS/HCC) Paroxysmal atrial fibrillation (CMS/HCC) BRAIN NATRIURETIC PEPTIDE, BNP OR PROBNP Routine 02/05/2025 10:59 AM CDT Acquired hypothyroidism Essential (primary) hypertension Chronic combined systolic and diastolic congestive heart failure (CMS/HCC) Paroxysmal atrial fibrillation (CMS/HCC) POC URINALYSIS DIPSTICK AUTOMATED Routine 02/05/2025 10:54 AM CDT Recurrent UTI URINALYSIS WITH REFLEX CULTURE Routine 01/23/2025 4:13 PM CDT Recurrent UTI ENDOSCOPY, COLON, DIAGNOSTIC Stat 04/30/2021 Blood in stool, leonora Anticoagulated from Last 3 Months or Most Recently Relevant to Health Maintenance Results * QUEST TEST IN QUESTION (ACTION NEEDED) (NO MY CHART) (02/05/2025 10:59 AM CDT) REPORT/SPECIMEN COMMENT [facility] Comment: Whole blood, unspun or partially spun gel barrier tube was received more than 6 hours since collection. A false elevation of K, Phos and LD as well as a false decrease in glucose may occur due to prolonged contact with red cells. Test Performed at: [facility] [address] [place] [address] Uli Chase MD 02/05/2025 10:5 9 AM CDT 02/06/2025 3:00 AM CDT us Lisa Nunn DO CHEMISTRY ORDERABLES Final Result [facility] [phone] [facility] [id number] [place] [address] * (ABNORMAL) CBC WITH DIFFERENTIAL (02/05/2025 10:59 AM CDT) WBC 5.4 3.8 - 10.8 Thousand/u L [facility] RBC 4.80 3.80 - 5.10 Million/uL [facility] HEMOGLOBIN 12.9 11.7 - 15.5 g/dL [facility] HEMATOCRIT 44.4 35.0 - 45.0 % [facility] MCV 92.5 80.0 - 100.0 fL [facility] MCH 26.9(L) 27.0 - 33.0 pg [facility] MCHC 29.1(L) 32.0 - 36.0 g/dL [facility] Comment: For adults, a slight decrease in the calculated MCHC value (in the range of 30 to 32 g/dL) is most likely not clinically significant; however, it should be interpreted with caution in correlation with other red cell parameters and the patient's clinical condition. RDW 18.8(H) 11.0 - 15.0 % [facility] PLATELETS 229 140 - 400 Thousand/u L [facility] MPV 9.6 7.5 - 12.5 fL [facility] NEUTROPHIL ABSOLUTE 3,359 1,500 - 7,800 cells/uL [facility] LYMPHOCYTE ABSOLUTE 1,388 850 - 3,900 cells/uL [facility] MONOCYTE ABSOLUTE 551 200 - 950 cells/uL [facility] EOSINOPHIL ABSOLUTE 22 15 - 500 cells/uL [facility] BASOPHILS ABSOLUTE 81 0 - 200 cells/uL [facility] NEUTROPHIL 62.2 % [facility] LYMPHOCYTES 25.7 % [facility] MONOCYTE 10.2 % [facility] EOSINOPHILS 0.4 % [facility] BASOPHILS 1.5 % [facility] Comment: Test Performed at: [facility] [address] [address] [address] Uli Chase MD Blood 02/05/2025 10:5 9 AM CDT 02/06/2025 3:00 AM CDT Lisa L Arline DO HEMATOLOGY ORDERABLES Final Result Performing Organization Address [facility]/ZIP Co de Phone Number [facility] [phone] [facility] [address] [place] [address] * TSH (02/05/2025 10:59 AM CDT) Pathologist [facility] TSH 3.46 0.40 - 4.50 mIU/L [facility] Comment: Test Performed at: [facility] [address] Uli Chase MD Blood 02/05/2025 10:5 9 AM CDT 02/06/2025 3:00 AM CDT us Lisajose antonio Nunn DO CHEMISTRY ORDERABLES Final Result Performing Organization Address [facility] Co de Phone Number [facility] [phone] [facility] [address] [place] [phone] * (ABNORMAL) BRAIN NATRIURETIC PEPTIDE, BNP OR PROBNP (02/05/2025 10:59 AM CDT) [facility] PROBNP, N TERMINAL 8,181(H) <450 pg/mL [facility] Comment: Test Performed at: [facility] [address] Uli Chase MD Blood 02/05/2025 10:5 9 AM CDT 02/06/2025 3:00 AM CDT us Lisajose antonio Nunn DO CHEMISTRY ORDERABLES Final Result Performing Organization Address City/[facility]/ZIP Co de Phone Number [facility] [phone] [facility] [address] [place] [address] * LIPID PANEL (02/05/2025 10:59 AM CDT) [facility] CHOLESTEROL 128 <200 mg/dL [facility] HDL 51 > OR = 50 mg/dL [facility] TRIGLYCERIDE 56 <150 mg/dL [facility] LDL CALCULATED 63 mg/dL (calc) [facility] Comment: Reference range: <100 Desirable range <100 mg/dL for primary prevention; <70 mg/dL for patients with CHD or diabetic patients with > or = 2 CHD risk factors. LDL-C is now calculated using the Alexy calculation, which is a validated novel method providing better accuracy than the Friedewald equation in the estimation of LDL-C. Ld SS et al. VERITO. 2013;310(19): 6622-4589 (http://education.Vigo/faq/NAY779) CHOL/HDL RATIO 2.5 <5.0 (calc) [facility] NON-HDL CHOLESTEROL 77 <130 mg/dL (calc) [facility] Comment: For patients with diabetes plus 1 major ASCVD risk factor, treating to a non-HDL-C goal of <100 mg/dL (LDL-C of <70 mg/dL) is considered a therapeutic option. Test Performed at: [facility] [address] [place] [address] Uli Chase MD Blood 02/05/2025 10:5 9 AM CDT 02/06/2025 3:00 AM CDT us Lisa Nunn DO CHEMISTRY ORDERABLES Final Result [facility] [phone] [facility] [address] [place] [address] * (ABNORMAL) COMPREHENSIVE METABOLIC PANEL (02/05/2025 10:59 AM CDT) GLUCOSE 44(L) 65 - 99 mg/dL [facility] Comment: Fasting reference interval BUN 31(H) 7 - 25 mg/dL [facility] CREATININE 1.43(H) 0.60 - 0.95 mg/dL [facility] GFR 37(L) > OR = 60 mL/min/1.7 3m2 [facility] BUN/CREAT RATIO 22 6 - 22 (calc) [facility] SODIUM 137 135 - 146 mmol/L [facility] POTASSIUM 4.3 3.5 - 5.3 mmol/L [facility] CHLORIDE 96(L) 98 - 110 mmol/L [facility] CO2 31 20 - 32 mmol/L [facility] CALCIUM 9.1 8.6 - 10.4 mg/dL [facility] TOTAL PROTEIN 7.0 6.1 - 8.1 g/dL [facility] ALBUMIN 4.2 3.6 - 5.1 g/dL [facility] GLOBULIN 2.8 1.9 - 3.7 g/dL (calc) [facility] ALBUMIN/GLOBULIN RATIO 1.5 1.0 - 2.5 (calc) [facility] BILIRUBIN TOTAL 1.3(H) 0.2 - 1.2 mg/dL [facility] ALKALINE PHOSPHATASE 67 37 - 153 U/L [facility] AST 19 10 - 35 U/L [facility] ALT 10 6 - 29 U/L [facility] Comment: Test Performed at: [facility] [address] [address] [address] Uli Chase MD Blood 02/05/2025 10:5 9 AM CDT 02/06/2025 3:00 AM CDT us Lisa Nunn DO CHEMISTRY ORDERABLES Final Result [facility] [phone] [facility] [employer] [address] [place] [address] * (ABNORMAL) POC URINALYSIS DIPSTICK AUTOMATED (02/05/2025 10:54 AM CDT) COLOR UA POC Yellow Pale to Dark Yellow [facility] CLARITY UA POC Clear Clear, Other ME [facility] GLUCOSE UA POC Negative Negative, Normal [facility] BILIRUBIN UA POC Negative Negative [facility] KETONES UA POC Negative Negative [facility] SPECIFIC GRAVITY UA POC 1.010 1.000 - 1.030 [facility] BLOOD UA POC 1+(A) Negative [facility] PH UA POC 5.5 5.0 - 8.0 [facility] PROTEIN UA POC Negative Negative [facility] UROBILINOGEN UA POC 1.0 <2.0 mg/dL [facility] NITRITE UA POC Negative Negative [facility] LEUKOCYTE ESTERASE UA POC Negative Negative [facility] KIT LOT NUMBER POC [phone] [facility] KIT EXP DATE POC [id number] [facility] Urine 02/05/2025 10:5 4 AM CDT October SHOT MAN POINT OF CARE TESTING Final Resu lt [facility] CLIA# [id number] [address] [place] [address] * (ABNORMAL) URINALYSIS WITH REFLEX CULTURE (01/23/2025 4:13 PM CDT) COLOR UA YELLOW YELLOW [facility] CLARITY UA CLEAR CLEAR [facility] SPECIFIC GRAVITY UA 1.013 1.001 - 1.035 [facility] PH UA 7.5 5.0 - 8.0 [facility] GLUCOSE UA NEGATIVE NEGATIVE [facility] BILIRUBIN UA NEGATIVE NEGATIVE [facility] KETONES UA NEGATIVE NEGATIVE [facility] BLOOD UA TRACE(A) NEGATIVE [facility] PROTEIN UA 1+(A) NEGATIVE [facility] NITRITE UA NEGATIVE NEGATIVE [facility] LEUKOCYTE ESTERASE UA NEGATIVE NEGATIVE [facility] WBC UA NONE SEEN < OR = 5 /HPF [facility] RBC UA 3-10(A) < OR = 2 /HPF [facility] EPITHELIAL CELLS, URINE 0-5 < OR = 5 /HPF [facility] BACTERIA UA NONE SEEN NONE SEEN /HPF [facility] HYALINE CAST NONE SEEN NONE SEEN /LPF [facility] URINE NOTE [facility] Comment: This urine was analyzed for the presence of WBC, RBC, bacteria, casts, and other formed elements. Only those elements seen were reported. URINE CULTURE [facility] Comment: NO CULTURE INDICATED Test [facility] [address] [facility] [place] [address] Uli Chase MD Urine URINE SPECIMEN OBTAINED BY CLEAN CATCH PROCEDURE / Unknown 01/23/2025 4:13 PM CDT 01/24/2025 4:07 AM CDT Lisa Nunn DO URINE ORDERABLES Final Resu lt Performing Organization Address City/[facility]/ZIP Co de Phone Number [facility] [phone] [facility] [address] [place] [address] * ENDOSCOPY, COLON, DIAGNOSTIC (04/30/2021) Makeda Hanley SHOT MAN GI PROCEDURE ORDERABLES Final Result from Last 3 Months or Most Recently Relevant to Health Maintenance Insurance MEDICAID [facility] DUAL COMPLETE HMO DSNP [facility] [id number] Advance Directives For more information, please contact: [phone] Documents on File Type Date Recorded Patient Grades 9 12 Tutor Expl anation Advance Directive POA 02/05/2025 9:40 AM A dvance Directive POA Advance Directive POA 07/22/2024 9:58 AM Advance Directive POA Care Teams Rn Chronic Relationship Specialty Start Date End Date Lisa Nunn DO [address] [place] [id number] PCP - General 12/30/20
[2025-03-29 13:34] LABS: Hematocrit 39.1 % (36-47); Hemoglobin 11.90 g/dL (11.27-16.99); Mean Corpuscular HGB Conc 30.4 g/dL (30-55); Mean Corpuscular Hemoglobin 27.0 pg (27-33); Mean Corpuscular Volume 88.7 fl (85-98); Nucleated Red Blood Cells % 0 %; Platelet Count 217 10^3/cmm (157-399); Red Blood Count 4.41 10^6/uL (3.85-5.65); White Blood Count 5.07 10^3/uL (3.29-11.43)
[2025-03-29 13:46] LABS: INR 1.12 (0.8-1.2); Prothrombin Time 15.20 SECONDS (12.1-14.9)
[2025-03-29 13:47] LABS: Partial Thromboplastin Time 28.3 SECONDS (23.9-36.7)
[2025-03-29 13:50] LABS: Alanine Aminotransferase 14 U/L (0-33); Albumin Level 4.1 g/dL (3.5-5.2); Alkaline Phosphatase 81 U/L (35-105); Anion Gap 17.8 (5-19); Aspartate Amino Transferase 21 U/L (0-32); Blood Urea Nitrogen 25 mg/dL (8-23); Calcium 9.2 mg/dL (8.5-10.5); Carbon Dioxide 27 mmol/L (22-29); Chloride 100 mmol/L (98-107); Creatinine Clr Calc Pharmacy 46.2671; Globulin 3.6 g/dL (1.3-4.6); Glucose 91 mg/dL (65-115); Osmolality Calculated 296 mOsm/kg (285-295); Potassium 3.8 mmol/L (3.5-5.1); Sodium 141 mmol/L (136-145); Total Protein 7.7 g/dL (6.6-8.7)
[2025-03-29 15:48] VITALS: PULSE 58; O2SAT 100
--- NOTE | 2025-03-29 15:48 | CTR_ITS ---
PROCEDURE INFORMATION: Exam: CT Right Lower Extremity Without Contrast, Hip Exam date and time: 03/29/2025 4:30 PM Age: 79 years old Clinical indication: Injury or trauma; Blunt trauma; Hip; Right; Prior surgery; Surgery date: 6+ months; Surgery type: Hysterectomy. Appy; Ground level fall at home sustaining RT femoral neck fracture. ; Additional info: Right hip FX, R/O trochanteric involvement TECHNIQUE: Imaging protocol: CT of the right lower extremity without contrast was performed. Exam focused on the hip. Radiation optimization: All CT scans at this facility use at least one of these dose optimization techniques: automated exposure control; mA and/or kV adjustment per patient size (includes targeted exams where dose is matched to clinical indication); or iterative reconstruction. COMPARISON: CR XR hip RT 2-3V wo/w pel* [id number] 03/29/2025 1:33 PM RADIATION DOSE METRICS: Total DLP (mGy-cm): 250.42 FINDINGS: Bones/joints: Acute comminuted femoral neck fracture with varus angulation. No dislocation. Mild diffuse osseous demineralization. The visualized pelvic bones appear intact. Soft tissues: Normal. Vasculature: Scattered vascular calcifications. Urinary bladder: Archer catheter within the urinary bladder which is decompressed. CT/CT hip RT wo con* [id number] IMPRESSION: Acute comminuted femoral neck fracture with varus angulation.
--- NOTE | 2025-03-29 15:49 | XRR_ITS ---
PROCEDURE INFORMATION: Exam: XR Right Femur Exam date and time: 03/29/2025 3:56 PM Age: 79 years old Clinical indication: Pain; Thigh; Left; Additional info: Right hip FX TECHNIQUE: Imaging protocol: Radiologic exam of the right femur. Views: 2 views. COMPARISON: No relevant prior studies available. FINDINGS: Bones/joints: Redemonstrated acute femoral neck fracture with mild varus angulation. The remainder of the femur is intact with no other fracture visualized more distally. No dislocation. Total knee arthroplasty partially imaged. Soft tissues: Unremarkable. Vasculature: Vascular calcifications. XR/XR femur RT min 2V* [id number] IMPRESSION: Similar femoral neck fracture. The remainder of the femur is unremarkable.
--- NOTE | 2025-03-29 15:49 | XRR_ITS ---
PROCEDURE INFORMATION: Exam: XR Right Knee Exam date and time: 03/29/2025 3:59 PM Age: 79 years old Clinical indication: Pain; Knee; Right; Additional info: Right hip FX TECHNIQUE: Imaging protocol: Radiologic exam of the right knee. Views: 1 or 2 views. COMPARISON: No relevant prior studies available. FINDINGS: Bones/joints: Total knee arthroplasty with patellar resurfacing. Hardware appears intact without complication. No periprosthetic fracture. No significant joint effusion. Soft tissues: Normal. Vasculature: Vascular calcifications. XR/XR knee RT 1-2V [id number] IMPRESSION: No acute findings.
[2025-03-29] MEDS: fentaNYL 50 mcg/mL INJ 2mL IVP (15:55)
--- NOTE | 2025-03-29 16:15 | PM.CONSULT ---
Documented by User: JHONATHAN Louis 03/29/25 17:03 Providers/Reason For Consult Consulting Physician/Specialty*: Dr. Hermann DO/orthopedic surgery Reason for Consult*: Right hip fracture Requesting Physician: Dann Cage PA-C Primary Care Provider: Lisa Nunn DO History of Present Illness History of Present Illness Ilana Lau is a 79 year old female with history of dementia, coronary artery disease, congestive heart failure, and atrial fibrillation on Plavix who presented to the emergency department by ambulance due to a fall that occurred just about an hour [employer]. Patient reportedly fell at home next to her couch, EMS was called by [id number] and they came in and brought patient to the emergency department and x-rays confirmed a right femoral neck fracture. Patient lives at home with her daughter. Patient ambulates without a walker for the most part but daughter says patient needs to be using a walker more. Patient took her Plavix this morning. Review of Systems General: Reports: 10 or more systems reviewed and unremarkable except in HPI and below Const: Denies: fever(s) or chills ENMT: Denies: odynophagia Card: Denies: chest pain Resp: Denies: dyspnea, productive cough or non-productive cough GI: Denies: abdominal pain, nausea, vomiting, diarrhea or constipation : Denies: dysuria Musc: Reports: joint pain (right hip) and limited range of motion (right hip) Skin/Breast: Reports: new lesions (Skin tear in the form) Medications/Allergies Home Medications ?Medication ?Instructions ?Recorded ?Confirmed ?Last Taken ?Type polyethylene glycol 3350 17 gram 17 g PO QAM 11/06/22 03/29/25 02/17/24 History oral powder packet (Miralax) alprazolam 0.25 mg tablet 0.25 mg PO BEDTIME PRN Sleep #30 11/11/23 03/29/25 03/28/25 19:00 Rx tabs levothyroxine 100 mcg tablet 100 mcg PO DAILY 11/11/23 03/29/25 03/29/25 06:00 History aspirin 325 mg tablet 325 mg PO DAILY 02/11/24 03/29/25 03/29/25 History albuterol sulfate 90 mcg/actuation 2 inh inhalation Q4H PRN shortness 02/17/24 03/29/25 Unknown Rx aerosol inhaler of breath or wheezing #18 grams mineral oil 15 ml PO DAILY 05/10/24 03/29/25 Unknown History clopidogrel 75 mg tablet See Rx Instructions .Route 05/24/24 03/29/25 03/29/25 Rx .COMPLEX #90 tabs metoprolol tartrate 25 mg tablet See Rx Instructions .Route 09/04/24 03/29/25 03/29/25 08:00 Rx .COMPLEX #30 tabs furosemide 40 mg tablet See Rx Instructions .Route 10/31/24 03/29/25 03/29/25 08:00 Rx .COMPLEX #135 tabs potassium chloride 10 mEq See Rx Instructions .Route 11/30/24 03/29/25 03/29/25 Rx tablet,extended release .COMPLEX #180 tabs amiodarone 200 mg tablet See Rx Instructions .Route 01/11/25 03/29/25 03/29/25 Rx .COMPLEX #90 tabs hydrocodone 7.5 mg-acetaminophen 1 tab PO Q4H PRN Pain 03/29/25 03/29/25 Unknown History 325 mg tablet Allergies Allergy/AdvReac Type Severity Reaction Status Date / Time atorvastatin (From Lipitor) Allergy ADR-Muscle Verified 11/16/24 14:55 Pain PFSH Acute PFSH: Medical History Hypothyroid Coronary artery disease Cardiogenic shock Congestive heart failure Blood in stool POP-Q stage 3 rectocele Rectocele Cystocele Diverticulosis Chronic episodic atrial fibrillation Afib Shortness of breath Hypertension Surgical History AICD (automatic cardioverter/defibrillator) present History of colonoscopy with polypectomy 2018 H/O total knee replacement right knee History of tubal ligation Hx of appendectomy H/O: hysterectomy H/O thyroidectomy Family History Father , unknown age CAD (coronary artery disease) Brother , age unknown Cancer colon Sister Cancer lungs Mother , in late 60s Lung disease Denies family history of Colon cancer Ovarian cancer Diabetes Clotting disorder Hyperlipidemia Chronic kidney disease (CKD) Breast cancer Suicide Anesthesia complication Bleeding disorder Uterine cancer Thyroid disease Stroke Social History Smoking and tobacco/nicotine status: former use of tobacco/nicotine Alcohol intake: never Substance/Drug Use: never Current occupational status: retired Vitals/I&O/Wt Last Vital Signs Temp 98.2 F 03/29/25 13:21 Pulse 58 L 03/29/25 15:48 Resp 16 03/29/25 13:21 BP 117/61 03/29/25 13:21 Pulse Ox 100 03/29/25 15:48 O2 Del Method Room Air 03/29/25 13:21 Weight last 48 hrs Weight 141 lb Physical Exam Const: COMMON NORMALS: no acute distress and alert Resp: COMMON NORMALS: normal respiratory effort and No retractions Cardio: COMMON NORMALS: Peripheral pulses 2+ throughout PERIPHERAL PULSES: Peripheral pulses 2+ throughout Extremity: NARRATIVE EXTREMITY EXAM: (Right) lower extremity-leg is shortened and externally rotated. Positive logroll test. Tenderness to palpation right hip. compartments are soft and compressible. Patient can Wiggle toes. Toes are warm and well-perfused. Pedal pulse 2+. Secondary assessment of other extremities. Upper extremities-left forearm has ecchymosis and skin tear. Full range of motion in shoulders, elbows and wrist. no tenderness to palpation of shoulders or wrist. (Left) lower extremity-no visible injury or trauma seen. Full range of motion in hip. Negative logroll test. Patient able to perform straight leg raise and can dorsiflex plantarflex foot. Pedal pulse 2+ and patient can wiggle toes. Neuro: SENSORIUM/ORIENTATION: Yes alert Skin: GENERAL SKIN EXAM: dry skin Data 03/29/25 12:42 03/29/25 12:42 Xray Ortho: Radiologist's impression: Patient: Ilana Lau Unit #: [id number] : 1945 Age/Sex: 79 / F ADM Date: 03/29/25 Loc: ER Room/Bed: Attending Dr: Ordering Provider/Ordering MD: Dann Cage Date of Service: 03/29/25 Procedure(s): XR hip RT 2-3V wo/w pel* [id number] Accession Number(s): [id number] Report Number: [id number] WS: [id number] Right hip, AP and frog-leg views, 03/29/2025 Clinical Data: fall Comparison: Right hip, 05/01/2010 Findings: There is a femoral neck fracture. The femoral head remains in the acetabulum. The adjacent pelvis shows no fractures. The SI joints and the pubic symphysis are unremarkable. The soft tissues are normal. XR/XR hip RT 2-3V wo/w pel* [id number] Impression: Right femoral neck fracture. Dictated By: Randi Lima MD A&P Assessment and plan 1. Fracture of femoral neck, right, closed: Plan: -Imaging and Labs reviewed -Hospitalist on board for medical management. -VTE prophylaxis -Nonweightbearing on right leg -Pain control -Hold daily plavix -N.p.o. after midnight -Surgery tomorrow afternoon or wednesday morning for Right hip hemiarthroplasty PDMP PDMP Reviewed: Not Reviewed Coding Level of Care Code Acute Code for Chg Fwd Diagnoses Fracture of femoral neck, right, closed S72.001A Time Spent (min) 45 Documented by User: Collin Mccrary DO 03/29/25 19:55 Medications/Allergies Home Medications ?Medication ?Instructions ?Recorded ?Confirmed ?Last Taken ?Type polyethylene glycol 3350 17 gram 17 g PO QAM 11/06/22 03/29/25 02/17/24 History oral powder packet (Miralax) alprazolam 0.25 mg tablet 0.25 mg PO BEDTIME PRN Sleep #30 11/11/23 03/29/25 03/28/25 19:00 Rx tabs levothyroxine 100 mcg tablet 100 mcg PO DAILY 11/11/23 03/29/25 03/29/25 06:00 History aspirin 325 mg tablet 325 mg PO DAILY 02/11/24 03/29/25 03/29/25 History albuterol sulfate 90 mcg/actuation 2 inh inhalation Q4H PRN shortness 02/17/24 03/29/25 Unknown Rx aerosol inhaler of breath or wheezing #18 grams mineral oil 15 ml PO DAILY 05/10/24 03/29/25 Unknown History clopidogrel 75 mg tablet See Rx Instructions .Route 05/24/24 03/29/25 03/29/25 Rx .COMPLEX #90 tabs metoprolol tartrate 25 mg tablet See Rx Instructions .Route 09/04/24 03/29/25 03/29/25 08:00 Rx .COMPLEX #30 tabs furosemide 40 mg tablet See Rx Instructions .Route 10/31/24 03/29/25 03/29/25 08:00 Rx .COMPLEX #135 tabs potassium chloride 10 mEq See Rx Instructions .Route 11/30/24 03/29/25 03/29/25 Rx tablet,extended release .COMPLEX #180 tabs amiodarone 200 mg tablet See Rx Instructions .Route 01/11/25 03/29/25 03/29/25 Rx .COMPLEX #90 tabs hydrocodone 7.5 mg-acetaminophen 1 tab PO Q4H PRN Pain 03/29/25 03/29/25 Unknown History 325 mg tablet Allergies Allergy/AdvReac Type Severity Reaction Status Date / Time atorvastatin (From Lipitor) Allergy ADR-Muscle Verified 11/16/24 14:55 Pain PFSH Acute PFSH: Medical History Hypothyroid Coronary artery disease Cardiogenic shock Congestive heart failure Blood in stool POP-Q stage 3 rectocele Rectocele Cystocele Diverticulosis Chronic episodic atrial fibrillation Afib Shortness of breath Hypertension Surgical History AICD (automatic cardioverter/defibrillator) present History of colonoscopy with polypectomy 2018 H/O total knee replacement right knee History of tubal ligation Hx of appendectomy H/O: hysterectomy H/O thyroidectomy Family History Father , unknown age CAD (coronary artery disease) Brother , age unknown Cancer colon Sister Cancer lungs Mother , in late 60s Lung disease Denies family history of Colon cancer Ovarian cancer Diabetes Clotting disorder Hyperlipidemia Chronic kidney disease (CKD) Breast cancer Suicide Anesthesia complication Bleeding disorder Uterine cancer Thyroid disease Stroke Social History Smoking and tobacco/nicotine status: former use of tobacco/nicotine Alcohol intake: never Substance/Drug Use: never Current occupational status: retired Physical Exam Extremity: NARRATIVE EXTREMITY EXAM: (Right) lower extremity-leg is shortened and externally rotated. Positive logroll test. Tenderness to palpation right hip. compartments are soft and compressible. Patient can Wiggle toes. Toes are warm and well-perfused. Pedal pulse 2+. Mild ecchymosis pretibial region no bony tenderness. Secondary assessment of other extremities. Upper extremities-left forearm has ecchymosis and skin tear. Full range of motion in shoulders, elbows and wrist. no tenderness to palpation of shoulders or wrist. (Left) lower extremity-no visible injury or trauma seen. Full range of motion in hip. Negative logroll test. Patient able to perform straight leg raise and can dorsiflex plantarflex foot. Pedal pulse 2+ and patient can wiggle toes. Data 03/29/25 12:42 03/29/25 12:42 Xray Ortho: Radiologist's impression: Patient: Ilana Lau Unit #: [id number] : 1945 Age/Sex: 79 / F ADM Date: 03/29/25 Loc: ER Room/Bed: Attending Dr: Ordering Provider/Ordering MD: Dann Cage Date of Service: 03/29/25 Procedure(s): XR hip RT 2-3V wo/w pel* [id number] Accession Number(s): [id number] Report Number: [id number] WS: [id number] Right hip, AP and frog-leg views, 03/29/2025 Clinical Data: fall Comparison: Right hip, 05/01/2010 Findings: There is a femoral neck fracture. The femoral head remains in the acetabulum. The adjacent pelvis shows no fractures. The SI joints and the pubic symphysis are unremarkable. The soft tissues are normal. XR/XR hip RT 2-3V wo/w pel* [id number] Impression: Right femoral neck fracture. Dictated By: Randi Lima MD Ordering Provider/Ordering MD: Collin Mccrary Date of Service: 03/29/25 Procedure(s): XR femur RT min 2V* [id number] Accession Number(s): [id number] Report Number: [id number] PROCEDURE INFORMATION: Exam: XR Right Femur Exam date and time: 03/29/2025 3:56 PM Age: 79 years old Clinical indication: Pain; Thigh; Left; Additional info: Right hip FX TECHNIQUE: Imaging protocol: Radiologic exam of the right femur. Views: 2 views. COMPARISON: No relevant prior studies available. FINDINGS: Bones/joints: Redemonstrated acute femoral neck fracture with mild varus angulation. The remainder of the femur is intact with no other fracture visualized more distally. No dislocation. Total knee arthroplasty partially imaged. Soft tissues: Unremarkable. Vasculature: Vascular calcifications. XR/XR femur RT min 2V* [id number] IMPRESSION: Similar femoral neck fracture. The remainder of the femur is unremarkable. Ordering Provider/Ordering MD: Collin Mccrary Date of Service: 03/29/25 Procedure(s): XR knee RT 1-2V 86231 Accession Number(s): [id number] Report Number: [id number] PROCEDURE INFORMATION: Exam: XR Right Knee Exam date and time: 03/29/2025 3:59 PM Age: 79 years old Clinical indication: Pain; Knee; Right; Additional info: Right hip FX TECHNIQUE: Imaging protocol: Radiologic exam of the right knee. Views: 1 or 2 views. COMPARISON: No relevant prior studies available. FINDINGS: Bones/joints: Total knee arthroplasty with patellar resurfacing. Hardware appears intact without complication. No periprosthetic fracture. No significant joint effusion. Soft tissues: Normal. Vasculature: Vascular calcifications. XR/XR knee RT 1-2V 96777 IMPRESSION: No acute findings. Ordering Provider/Ordering MD: Collin Mccrary Date of Service: 03/29/25 Procedure(s): CT hip RT wo con* [id number] Accession Number(s): [id number] Report Number: [id number] PROCEDURE INFORMATION: Exam: CT Right Lower Extremity Without Contrast, Hip Exam date and time: 03/29/2025 4:30 PM Age: 79 years old Clinical indication: Injury or trauma; Blunt trauma; Hip; Right; Prior surgery; Surgery date: 6+ months; Surgery type: Hysterectomy. Appy; Ground level fall at home sustaining RT femoral neck fracture. ; Additional info: Right hip FX, R/O trochanteric involvement TECHNIQUE: Imaging protocol: CT of the right lower extremity without contrast was performed. Exam focused on the hip. Radiation optimization: All CT scans at this facility use at least one of these dose optimization techniques: automated exposure control; mA and/or kV adjustment per patient size (includes targeted exams where dose is matched to clinical indication); or iterative reconstruction. COMPARISON: CR XR hip RT 2-3V wo/w pel* [id number] 03/29/2025 1:33 PM RADIATION DOSE METRICS: Total DLP (mGy-cm): 250.42 FINDINGS: Bones/joints: Acute comminuted femoral neck fracture with varus angulation. No dislocation. Mild diffuse osseous demineralization. The visualized pelvic bones appear intact. Soft tissues: Normal. Vasculature: Scattered vascular calcifications. Urinary bladder: Archer catheter within the urinary bladder which is decompressed. CT/CT hip RT wo con* [id number] IMPRESSION: Acute comminuted femoral neck fracture with varus angulation. A&P Assessment and plan 1. Fracture of femoral neck, right, closed: Plan: -Imaging and Labs reviewed -Hospitalist on board for medical management. -VTE prophylaxis -Nonweightbearing on right leg -Pain control -Hold daily plavix -N.p.o. after midnight -Surgery tomorrow afternoon or wednesday morning for Right hip hemiarthroplasty Orthopedic attending addendum: Reviewed agree with PAs assessment and plan. At this point in time patient has a displaced right hip femoral neck fracture. We talked about her options in detail with the patient as far as nonoperative and operative intervention at this point in time for earlier mobilization as well as for pain control would recommend a right hip hemiarthroplasty CT scan confirms patient has a displaced femoral neck fracture no trochanteric involvement. We talked about opportunity for press-fit fixation for cement fixation at this point in time patient elects proceed with surgical intervention she understands the ins and outs procedure the risk benefits complication alternatives surgical nonsurgical treatment options. Risk of surgery include but not limited to make a better make it worse, injury to nerves vessels or tendons, infection, instability, leg length discrepancies, persistent pain, periprosthetic fracture. Understanding risk of surgery patient like to proceed with surgical intervention. All questions have been answered at this time. Discussed case with family understands agrees with current plan as well all questions answered at this time. She did take her Plavix this morning at this point in time we will discuss case with anesthesia tomorrow my plan will likely be to do this on Wednesday morning. Patient understands agrees to current plan. Questions answered. PDMP PDMP Reviewed: Not Reviewed Coding Level of Care Code Acute Code for Chg Fwd Diagnoses Fracture of femoral neck, right, closed S72.001A Time Spent (min) 45
[2025-03-29 16:32] LABS: Glucose Urine UA Negative (Normal); Nitrate Urine Negative (Negative); Specific Gravity, Urine 1.010 (1.005-1.030)
[2025-03-29 16:34] LABS: Add Urine Microscopic? YES
--- NOTE | 2025-03-29 17:23 | P.HP_ITS ---
Providers/Chief Complaint 2 Admitting Physician: Salomon Rodriguez MD Primary Care Provider: Lisa Nunn DO Chief Complaint: right hip pain - fall History of Present Illness Ilana Lau is a 79 year old female With past medical history of hypothyroidism, coronary disease, cardiogenic shock, just of heart failure, atrial fibrillation, shortness of breath, hypertension presented to the hospital today after a fall which was mechanical in nature. Patient fell next to her couch which was a mechanical fall. She tripped on something. Denies losing consciousness or lightheadedness prior to the fall. At this time patient resting comfortably in bed denies nausea vomiting diarrhea chest pain shortness of breath. Last known EF 20 to 25% in 2022. Last coronary angiogram in 2022. At that time which showed patent left anterior descending artery stent. Medications/Allergies Home Medications ?Medication ?Instructions ?Recorded ?Confirmed ?Last Taken ?Type polyethylene glycol 3350 17 gram 17 g PO QAM 11/06/22 03/29/25 02/17/24 History oral powder packet (Miralax) alprazolam 0.25 mg tablet 0.25 mg PO BEDTIME PRN Sleep #30 11/11/23 03/29/25 03/28/25 19:00 Rx tabs levothyroxine 100 mcg tablet 100 mcg PO DAILY 11/11/23 03/29/25 03/29/25 06:00 History aspirin 325 mg tablet 325 mg PO DAILY 02/11/2411/1703/29/25 History albuterol sulfate 90 mcg/actuation 2 inh inhalation Q4 H PRN shortness 02/17/24 03/29/25 Unknown Rx aerosol inhaler of breath or wheezing #18 gr ams mineral oil 15 ml PO DAILY 05/10/2411/17 Unknown History clopidogrel 75 mg tablet See Rx Instructions .Route 1 03/29/25 03/29/25 Rx .COMPLEX #90 tabs metoprolol tartrate 25 mg tablet See Rx Instructions . Route 09/04/24 03/29/25 03/29/25 08:00 Rx .COMPLEX #30 tabs furosemide 40 mg tablet See Rx Instructions .Route 0 10/31/24 03/29/25 03/29/25 08:00 Rx .COMPLEX #135 tabs potassium chloride 10 mEq See Rx Instructions .Route 0 11/30/24 03/29/25 03/29/25 Rx tablet,extended release .COMPLEX #180 tabs amiodarone 200 mg tablet See Rx Instructions .Route 0 01/11/25 03/29/25 03/29/25 Rx .COMPLEX #90 tabs hydrocodone 7.5 mg-acetaminophen 1 tab PO Q4H PRN Pain 03/29/25 03/29/25 Unknown History 325 mg tablet Allergies Allergy/AdvReac Type Severity Reaction Status Date / Time atorvastatin (From Lipitor) Allergy ADR-Muscle Verified 11/16/24 14:55 Pain PFSH Acute 2 PFSH: Medical History (Updated 03/29/25 @ 19:27 by Yazan Angelo MD) Hypothyroid Coronary artery disease Cardiogenic shock Congestive heart failure Blood in stool POP-Q stage 3 rectocele Rectocele Cystocele Diverticulosis Chronic episodic atrial fibrillation Afib Shortness of breath Primary hypertension Surgical History AICD (automatic cardioverter/defibrillator) present History of colonoscopy with polypectomy 2018 H/O total knee replacement right knee History of tubal ligation Hx of appendectomy H/O: hysterectomy H/O thyroidectomy Family History Father , unknown age CAD (coronary artery disease) Brother , age unknown Cancer colon Sister Cancer lungs Mother , in late 60s Lung disease Denies family history of Colon cancer Ovarian cancer Diabetes Clotting disorder Hyperlipidemia Chronic kidney disease (CKD) Breast cancer Suicide Anesthesia complication Bleeding disorder Uterine cancer Thyroid disease Stroke Social History Smoking and tobacco/nicotine status: former use of tobacco/nicotine Alcohol intake: never Substance/Drug Use: never Current occupational status: retired Vitals/I&O/Wt Last Vital Signs Temp 98.2 F 03/29/25 13:21 Pulse 58 L 03/29/25 15:48 Resp 16 03/29/25 13:21 BP 117/61 03/29/25 13:21 Pulse Ox 100 03/29/25 15:48 O2 Del Method Room Air 03/29/25 13:21 Weight last 48 hrs Weight 63.957 kg Physical Exam 2 Const: COMMON NORMALS: no acute distress and alert Resp: COMMON NORMALS: normal respiratory effort and No retractions (To auscultation bilaterally no wheezes conchae) Cardio: COMMON NORMALS: Peripheral pulses 2+ throughout PERIPHERAL PULSES: Peripheral pulses 2+ throughout Extremity: NARRATIVE EXTREMITY EXAM: (Right) lower extremity-leg is shortene d and externally rotated. Tenderness to palpation right hip. Patient can Wiggle toes. Toes are warm and well-perfused. Pedal pulse 2+. Pedal pulse 2+ and patient can wiggle toes. Neuro: SENSORIUM/ORIENTATION: Yes alert Skin: GENERAL SKIN EXAM: dry skin Data 03/30/25 05:13 03/30/25 05:13 A&P Assessment and plan 1. Hypertension: 2. Benign essential hypertension with target blood pressure below 140/90: 3. Afib: 4. AICD (automatic cardioverter/defibrillator) present: 5. Hypothyroid: 6. Coronary artery disease: Plan: #Hip fracture #Atrial fibrillation #History of coronary disease # Acute on systolic congestive heart failure #Hypertension ? AICD in place ? Consult cardiology for cardiac clearance - Last known EF 20 to 25%. ? Check echocardiogram ? Patient denies chest pain shortness of breath at this time ? Continue aspirin Plavix - Levothyroxine - Continue metoprolol to tartrate - Continue Lasix 40 daily. - EKG shows A-fib with slow ventricular response, - Check TSH hemoglobin A1c ? Orthopedic surgery consulted. ? N.p.o. at midnight for anticipated hip fracture repair in AM. ? Continue aspirin Plavix for now. Will discuss with cardiology. ?If okayed by cardiology will hold aspirin and Plavix prior to surgery. ? N.p.o. at midnight in anticipation of possible procedure in a.m. ? Patient requiring 2 L nasal cannula at this time. Seems to be slightly fluid overloaded. Will order Lasix 40 IV x 1. ? Patient will need to be fluid optimized prior to surgery. ? Will await recommendation from cardiology. Full code DVT prophylaxis: Heparin subcu twice daily PDMP PDMP Reviewed: Not Reviewed Attestations 2 Medical Necessity Statement*: Acute hip fracture, across greater than 2 midnight stay for management of hip fracture Diagnoses Hypertension I10 Benign essential hypertension with target blood pressure below 140/90 I10 Afib I48.91 AICD (automatic cardioverter/defibrillator) present Z95.810 Hypothyroid E03.9 Coronary artery disease I25.10
[2025-03-29 17:30] VITALS: BP 125/51; PULSE 79; O2SAT 98
[2025-03-29 17:32] VITALS: BP 128/93; PULSE 55; RESP 17; TEMP 36.3; O2SAT 91
--- NOTE | 2025-03-29 17:33 | USCV_ITS ---
Judi Ilana Age: 79 Gender: F : 1945 Exam Date: 03/29/2025 19:45 Ordering Phys: Felicity Burgess MD Technologist: LISBETH [place] [facility] [place] admit with RIGHT hip fracture, pre-op clearance. History of CAD, cardic shock, Afib, SOB, HTN, CHF, pacemaker. BP: 125 / 51 HR: 55 Rhythm: Atrial fibrillation Technical Quality: Adequate MEASUREMENTS (Male / Female) Normal Values 2D ECHO LV Diastolic Diameter PLAX 4.8 cm 4.2 - 5.9 / 3.9 - 5.3 cm IVS Diastolic Thickness 0.7 cm 0.6 - 1.0 / 0.6 - 0.9 cm IVS Systolic Thickness 0.8 cm LVPW Diastolic Thickness 1.3 cm 0.6 - 1.0 / 0.6 - 0.9 cm LVPW Systolic Thickness 1.5 cm LVOT Diameter 1.9 cm LV Ejection Fraction 2D Teich 39.7 % LV Ejection Fraction MOD 4C 14.2 % LV Ejection Fraction MOD 2C 31.1 % LV Ejection Fraction 2C AL 32.6 % LA Diameter 4.2 cm Aorta at Sinotubular Diameter 2.8 cm IVC Diameter 1.8 cm M-MODE LA Ao Ratio MM 1.6 AV Cusp Separation MM 1.8 cm DOPPLER AV Peak Velocity 129.0 cm/s LVOT Peak Velocity 45.0 cm/s AV Area Cont Eq vti 1.1 cm squared AV Area Cont Eq pk 1.0 cm squared MV Peak Velocity 102.0 cm/s MV Area PHT 4.8 cm squared Mitral E to A Ratio 599.0 TV Peak Velocity 324.5 cm/s TV Peak E Velocity 59.0 cm/s PV Peak Velocity 82.0 cm/s FINDINGS Left Ventricle Thinned out and almost akinetic septum and anteroseptal segments. Aneurysmal dilatation of the LV apex. Moderately dilated left ventricle. LV ejection fraction around 15 to 20%, visual Right Ventricle Pacemaker/defibrillator wire in the right ventricle. Moderately depressed RV ejection fraction. Right Atrium Severely increased right atrial size. Pacemaker/defibrillator wire was noted on the right atrium Left Atrium Severely increased left atrial size. Mitral Valve Thickened mitral valve. Moderately severe mitral valve regurgitation. Aortic Valve Mild aortic valve regurgitation. Mild aortic valve calcification. Tricuspid Valve Moderately severe tricuspid regurgitation with a multiple regurgitant jets. Moderate pulmonary hypertension with an estimated pulmonary artery peak systolic pressure of 58 mmHg Pulmonic Valve Mild pulmonary valve regurgitation. Pericardium No pericardial effusion. Aorta Normal aortic annulus size. IVC Normal IVC dimension with <50% respiratory change of the inferior vena cava. CONCLUSIONS Thinned out and almost akinetic septum and anteroseptal segments. Aneurysmal dilatation of the LV apex. Moderately dilated left ventricle. LV ejection fraction around 15 to 20%, visual. Pacemaker/defibrillator wire in the right ventricle. Moderately depressed RV ejection fraction. Severely increased right atrial size. Pacemaker/defibrillator wire was noted on the right atrium. Severely increased left atrial size. Thickened mitral valve. Moderately severe mitral valve regurgitation. Mild aortic valve regurgitation. Mild aortic valve calcification. Moderately severe tricuspid regurgitation with a multiple regurgitant jets. Moderate pulmonary hypertension with an estimated pulmonary artery peak systolic pressure of 58 mmHg. Mild pulmonary valve regurgitation. There is no pericardial effusion. There are no intracardiac masses. Compared to the study from 09/07/2022, there is some worsening of the LV systolic function possibly from negative remodeling Dr Yazan Angelo MD [facility] (Electronically Signed) Final Date: 29 March 2025 21:01 S
[2025-03-29] MEDS: heparin 5,000 unit/mL INJ 1 mL 5000 UNIT SUBCUT (17:49)
[2025-03-29 18:06] LABS: NT Pro B Type Natriuretic Pept 7575 pg/mL (0-450); Thyroid Stimulating Hormone 6.35 uIU/mL (0.27-4.20)
--- NOTE | 2025-03-29 18:45 | P.CONIM_ITS ---
Providers/Reason For Consult 2 Consulting Physician/Specialty*: SARA Angelo MD/cardiology Reason for Consult*: Patient with a cardiomyopathy, atherosclerotic heart diseas, status post ICD, is admitted with hip fracture. Preop evaluation Requesting Physician: Dr. Burgess Attending Physician: Felicity Burgess MD Primary Care Provider: Lisa Nunn DO History of Present Illness History of Present Illness Ilana Lau is a 79 year old female is admitted to hospital with a diagnosis of right femoral neck fracture. She is known to have atherosclerotic heart diseas, ischemic cardiomyopathy and ICD implantation. Cardiology consult is requested for a preop cardiac evaluation recommendations. This patient apparently was in her baseline state of health up until this afternoon when while she was trying to get up and open the door for somebody who was knocking got off balance, fell to the floor and sustained the hip fracture. She has no chest pain or chest tightness. No unusual shortness of breath. Did not have any loss of consciousness. Except for the hip pain, she denies any other specific complaints. According to her son, she been fairly active with no significant symptoms in the recent past. Denies any fever or chills. No cough. No orthopnea or PND. No other specific complaints. This patient is known atherosclerotic heart disease and had previous PCI. She was found with LV ejection fraction of 20 to 25% by echocardiogram in 2022. She had a prophylactic ICD. Her most recent cardiac catheterization was in 2022 and was found to have patent stents in the proximal and mid LAD with no significant lesions in the left main, circumflex and right coronary artery. She is known to have chronic atrial fibrillation and is on long-term oral anticoagulation. She also has a history of hypertension, congestive heart failure dyslipidemia, COPD, hypothyroidism etc. Review of Systems 2 Narrative: CONSTITUTIONAL: No fever or chills. EYES: No blurring of vision or other visual disturbances lately. ENT: No hoarseness of voice, auditory disturbances or sore throat. CARDIOVASCULAR: As mentioned above. RESPIRATORY: No significant cough. GASTROINTESTINAL: No hematemesis or melena. GENITOURINARY: No dysuria or hematuria. INTEGUMENTARY: No skin rashes or history of skin cancer. NEURO: No transient ischemic attacks or amaurosis. PSYCHIATRIC: No history of psychosis or major depression. HEMATOLOGIC: No bleeding disorders or significant anemia. ENDOCRINE: No history of polyuria or polydipsia. MUSCULOSKELETAL: As mentioned above ALLERGY/IMMUNOLOGY: As mentioned above. Medications/Allergies Home Medications ?Medication ?Instructions ?Recorded ?Confirmed ?Last Taken ?Type polyethylene glycol 3350 17 gram 17 g PO QAM 11/06/22 03/29/25 02/17/24 History oral powder packet (Miralax) alprazolam 0.25 mg tablet 0.25 mg PO BEDTIME PRN Sleep #30 11/11/23 03/29/25 03/28/25 19:00 Rx tabs levothyroxine 100 mcg tablet 100 mcg PO DAILY 11/11/23 03/29/25 03/29/25 06:00 History aspirin 325 mg tablet 325 mg PO DAILY 02/11/2411/1703/29/25 History albuterol sulfate 90 mcg/actuation 2 inh inhalation Q4 H PRN shortness 02/17/24 03/29/25 Unknown Rx aerosol inhaler of breath or wheezing #18 gr ams mineral oil 15 ml PO DAILY 05/10/2411/17 Unknown History clopidogrel 75 mg tablet See Rx Instructions .Route 1 03/29/25 03/29/25 Rx .COMPLEX #90 tabs metoprolol tartrate 25 mg tablet See Rx Instructions . Route 09/04/24 03/29/25 03/29/25 08:00 Rx .COMPLEX #30 tabs furosemide 40 mg tablet See Rx Instructions .Route 0 10/31/24 03/29/25 03/29/25 08:00 Rx .COMPLEX #135 tabs potassium chloride 10 mEq See Rx Instructions .Route 0 11/30/24 03/29/25 03/29/25 Rx tablet,extended release .COMPLEX #180 tabs amiodarone 200 mg tablet See Rx Instructions .Route 0 01/11/25 03/29/25 03/29/25 Rx .COMPLEX #90 tabs hydrocodone 7.5 mg-acetaminophen 1 tab PO Q4H PRN Pain 03/29/25 03/29/25 Unknown History 325 mg tablet Allergies Allergy/AdvReac Type Severity Reaction Status Date / Time atorvastatin (From Lipitor) Allergy ADR-Muscle Verified 11/16/24 14:55 Pain Current Medications Generic Name Dose Route Start Last Admin Trade Name Freq PRN Reason Stop Dose Admin Heparin Sodium (Porcine) 5,000 unit 03/29/25 17:45 03/29/25 17:49 Heparin 5,000 Unit/Ml Inj 1 Ml SUBCUT 5,000 unit Q12H RETA Administration PFSH Acute 2 PFSH: Medical History Hypothyroid Coronary artery disease Cardiogenic shock Congestive heart failure Blood in stool POP-Q stage 3 rectocele Rectocele Cystocele Diverticulosis Chronic episodic atrial fibrillation Afib Shortness of breath Hypertension Surgical History AICD (automatic cardioverter/defibrillator) present History of colonoscopy with polypectomy 2018 H/O total knee replacement right knee History of tubal ligation Hx of appendectomy H/O: hysterectomy H/O thyroidectomy Family History Father , unknown age CAD (coronary artery disease) Brother , age unknown Cancer colon Sister Cancer lungs Mother , in late 60s Lung disease Denies family history of Colon cancer Ovarian cancer Diabetes Clotting disorder Hyperlipidemia Chronic kidney disease (CKD) Breast cancer Suicide Anesthesia complication Bleeding disorder Uterine cancer Thyroid disease Stroke Social History Smoking and tobacco/nicotine status: former use of tobacco/nicotine Alcohol intake: never Substance/Drug Use: never Current occupational status: retired Vitals/I&O/Wt Last Vital Signs Temp 97.4 F L 03/29/25 17:32 Pulse 55 L 03/29/25 17:32 Resp 17 03/29/25 17:32 BP 128/93 03/29/25 17:32 Pulse Ox 91 03/29/25 17:32 O2 Del Method Nasal Cannula 03/29/25 17:37 Weight last 48 hrs Weight 143 lb 8 oz Weight 141 lb Physical Exam 2 Narrative: GENERAL: The patient is alert and oriented times three. Not in any acute distress. HEENT: Mild pallor. No icterus or lymphadenopathy.Oral cavity: There are no mucous membrane lesions. NECK: Trachea appears to be central. No masses noted. No JVD or thyromegaly appreciated. RESPIRATORY: Chest is symmetrical. No intercostals muscle retraction or any accessory muscle activation. There is no chest wall tenderness. Breath sounds are heard bilaterally. No rales or rhonchi heard. No evidence of any consolidation. BREASTS: Deferred. HEART: The heart sounds are normal. No S3 or S4. No significant murmurs. No pericardial rub ABDOMEN: No vessel pulsations or distention. No tenderness. No organomegaly appreciated. Bowel sounds are normally heard. : Deferred. RECTAL: Deferred. LYMPHATIC: No lymphadenopathy noted in the neck. EXTREMITIES: No edema or cyanosis. No clubbing. Peripheral pulses are palpable and fairly good volume and amplitude. MUSCULOSKELETAL: Right hip somewhat externally rotated and very painful SKIN: There are no significant rashes or ecchymosis NEUROPSYCHIATRIC: The patient is alert and oriented x3. Appears to be in a good mood. No tremors or rigidity noted. Urinary Catheter Management: Archer: Cath Placed During This Visit: yes Reason for Continuing Indwelling Catheter: Other Urinary Catheter Date of Insertion: 03/29/25 Data 03/29/25 12:42 03/29/25 12:42 Other Labs: Laboratory Last Values WBC 5.07 10^3/uL (3.29-11.43) 03/29/25 12:42 RBC 4.41 10^6/uL (3.85-5.65) 03/29/25 12:42 Hgb 11.90 g/dL (11.27-16.99) 03/29/25 12:42 Hct 39.1 % (36-47) 03/29/25 12:42 MCV 88.7 fl (85-98) 03/29/25 12:42 MCH 27.0 pg (27-33) 03/29/25 12:42 MCHC 30.4 g/dL (30-55) 03/29/25 12:42 RDW 15.9 % (12.1-15.1) H 03/29/25 12:42 Plt Count 217 10^3/cmm (157-399) 03/29/25 12:42 MPV 9.5 fL (7.4-10.4) 03/29/25 12:42 Neut % (Auto) 67.7 % 03/29/25 12:42 Lymph % (Auto) 18.9 % 03/29/25 12:42 [place] % (Auto) 11.2 % 03/29/25 12:42 Eos % (Auto) 0.4 % 03/29/25 12:42 Baso % (Auto) 1.2 % 03/29/25 12:42 Neut # (Auto) 3.43 10^3/uL (1.8-7.7) 03/29/25 12:42 Lymph # (Auto) 1.0 10^3/uL (0.8-4.8) 03/29/25 12:42 [place] # (Auto) 0.6 10^3/uL (0.2-0.9) 03/29/25 12:42 Eos # (Auto) 0.0 10^3/uL (0.0-0.8) 03/29/25 12:42 Baso # (Auto) 0.1 10^3/uL (0.0-0.1) 03/29/25 12:42 Nucleated RBC % (auto) 0 % 03/29/25 12:42 Nucleated RBCs # 0.0 /100WBC 03/29/25 12:42 PT 15.20 SECONDS (12.1-14.9) H 03/29/25 12:42 INR 1.12 (0.8-1.2) 03/29/25 12:42 APTT 28.3 SECONDS (23.9-36.7) 03/29/25 12:42 Sodium 141 mmol/L (136-145) 03/29/25 12:42 Potassium 3.8 mmol/L (3.5-5.1) 03/29/25 12:42 Chloride 100 mmol/L (98-107) 03/29/25 12:42 Carbon Dioxide 27 mmol/L (22-29) 03/29/25 12:42 Anion Gap 17.8 (5-19) 03/29/25 12:42 BUN 25 mg/dL (8-23) H 03/29/25 12:42 Creatinine 0.9 mg/dL (0.5-0.9) 03/29/25 12:42 GFR Calculation Not Reportable 03/29/25 12:42 Glucose 91 mg/dL (65-115) 03/29/25 12:42 Calculated Osmolality 296 mOsm/kg (285-295) H 03/29/25 12:42 Calcium 9.2 mg/dL (8.5-10.5) 03/29/25 12:42 Total Bilirubin 1.2 mg/dL (0.15-1.2) 03/29/25 12:42 AST 21 U/L (0-32) 03/29/25 12:42 ALT 14 U/L (0-33) 03/29/25 12:42 Alkaline Phosphatase 81 U/L (35-105) 03/29/25 12:42 NT-Pro-B Natriuret Pep 7575 pg/mL (0-450) H 03/29/25 12:42 Total Protein 7.7 g/dL (6.6-8.7) 03/29/25 12:42 Albumin 4.1 g/dL (3.5-5.2) 03/29/25 12:42 Globulin 3.6 g/dL (1.3-4.6) 03/29/25 12:42 TSH 6.35 uIU/mL (0.27-4.20) H 03/29/25 12:42 Urine Color Yellow (Yellow) 03/29/25 16:18 Urine Appearance Clear (CLEAR) 03/29/25 16:18 Urine pH 5.5 (5-7) 03/29/25 16:18 Ur Specific [place] 1.010 (1.005-1.030) 03/29/25 16:18 Urine Protein Trace (Negative) A 03/29/25 16:18 Urine Glucose (UA) Negative (Normal) 03/29/25 16:18 Urine Ketones Negative (Negative) 03/29/25 16:18 Urine Blood Trace (Negative) A 03/29/25 16:18 Urine Nitrate Negative (Negative) 03/29/25 16:18 Urine Bilirubin Negative (Negative) 03/29/25 16:18 Urine Urobilinogen 1.0 mg/dL (Negative) 03/29/25 16:18 Ur Leukocyte Esterase Negative (Negative) 03/29/25 16:18 Urine RBC 0-2 /hpf (0-2) 03/29/25 16:18 Urine WBC 0-5 /hpf (0-5) 03/29/25 16:18 Ur Squamous Epith Cells 0-5 /hpf (0-5) 03/29/25 16:18 Amorphous Sediment Not Reportable 03/29/25 16:18 Urine Bacteria None seen /hpf (NONE) 03/29/25 16:18 Hyaline Casts 1.21 /lpf 09/04/25 16:18 Other data: The EKG from today showed multifocal atrial rhythm with a rate of 51 bpm. Poor R wave progression suggesting old anterior wall VT. Borderline right axis deviation. A&P Assessment and plan 1. Ischemic cardiomyopathy: Patient had a LV ejection fraction of 20 to 25% 2022. Has not had any recent evaluation. I may go ahead to do an echocardiogram to evaluate the LV function. 2. Chronic episodic atrial fibrillation: She is on long-term oral anticoagulation. She is currently in multifocal atrial rhythm. 3. AICD (automatic cardioverter/defibrillator) present: Patient has a single-chamber device with a backup rate of 40 bpm. The device function was found to be appropriate based on the evaluation in January. 4. Atherosclerosis of [place] coronary artery of [place] heart without angina pectoris: Currently the patient has no specific symptoms of coronary insufficiency. Myocardial on the current medications. 5. Primary hypertension: Currently normotensive. 6. Chronic systolic (congestive) heart failure: Clinically compensated. The proBNP is found to be elevated in the 7000 range. Most recent proBNP prior to this is from 2022. It was in the 4000 range at that time. Clinically she does not seems to be in heart failure. She has been taking Lasix on a daily basis at home. Plan: Echocardiogram today Lasix 40 mg IV now In view of the LV dysfunction, preoperative fluid management need to be closely monitored. Also may place a magnet over the device during the procedure Her revised cardiac risk index( RCRI) score is 2 with 5% risk for major cardiac event I discussed in detail with the patient and her family about the cardiac risk status which they understood well PDMP PDMP Reviewed: Not Reviewed Consult Attestations 2 Medical Necessity Statement: Patient requires continued hospital stay for close monitoring and further management Coding Level of Care Code 46015 Diagnoses Ischemic cardiomyopathy I25.5 Chronic episodic atrial fibrillation I48.20 AICD (automatic cardioverter/defibrillator) present Z95.810 Atherosclerosis of [place] coronary artery of [place] heart without angina pectoris I25.10 Coronary Disease-Associated Artery/Lesion type: [place] artery Primary hypertension I10 Hypertension type: primary hypertension Chronic systolic (congestive) heart failure I50.22
[2025-03-29 20:00] VITALS: BP 128/61; PULSE 58; RESP 16; TEMP 36.4; O2SAT 94
[2025-03-29] MEDS: FUROsemide 10 mg/mL SDV 4mL 40 MG IVP (20:02)
[2025-03-29 20:15] LABS: Estmated Average Glucose 126; Hemoglobin A1C 6.0 % (4.0-6.0)
[2025-03-29] MEDS: HYDROcodone-acetaminophen 5-325 mg Tablet 1 TAB PO (20:44)
[2025-03-29 22:00] VITALS: PULSE 51
[2025-03-30] VITALS (8 sets, daily range): BP systolic 101–143; BP diastolic 67–72; PULSE 57–88; RESP 16–18; TEMP 36.3–36.9; O2SAT 91–98
[2025-03-30 05:32] LABS: Hematocrit 38.5 % (36-47); Hemoglobin 11.80 g/dL (11.27-16.99); Mean Corpuscular HGB Conc 30.6 g/dL (30-55); Mean Corpuscular Hemoglobin 27.5 pg (27-33); Mean Corpuscular Volume 89.7 fl (85-98); Nucleated Red Blood Cells % 0 %; Platelet Count 211 10^3/cmm (157-399); Red Blood Count 4.29 10^6/uL (3.85-5.65); White Blood Count 7.90 10^3/uL (3.29-11.43)
[2025-03-30 05:53] LABS: Alanine Aminotransferase 15 U/L (0-33); Albumin Level 3.9 g/dL (3.5-5.2); Alkaline Phosphatase 77 U/L (35-105); Anion Gap 18.8 (5-19); Aspartate Amino Transferase 23 U/L (0-32); Blood Urea Nitrogen 23 mg/dL (8-23); Calcium 8.8 mg/dL (8.5-10.5); Carbon Dioxide 26 mmol/L (22-29); Chloride 101 mmol/L (98-107); Creatinine Clr Calc Pharmacy 46.6181; Globulin 3.5 g/dL (1.3-4.6); Glucose 123 mg/dL (65-115); Magnesium 2.0 mg/dL (1.7-2.3); Osmolality Calculated 299 mOsm/kg (285-295); Potassium 3.8 mmol/L (3.5-5.1); Sodium 142 mmol/L (136-145); Total Protein 7.4 g/dL (6.6-8.7)
[2025-03-30] MEDS: HYDROcodone-acetaminophen 5-325 mg Tablet 1 TAB PO ×2 (07:29→13:13)
--- NOTE | 2025-03-30 11:44 | P.PN_ITS ---
Subjective 2 Subjective: Echocardiogram results reviewed: Thinned out and almost akinetic septum and anteroseptal segments. Aneurysmal dilatation of the LV apex. Moderately dilated left ventricle. LV ejection fraction around 15 to 20%, visual. Pacemaker/defibrillator wire in the right ventricle. Moderately depressed RV ejection fraction. Severely increased right atrial size. Pacemaker/defibrillator wire was noted on the right atrium. Severely increased left atrial size. Thickened mitral valve. Moderately severe mitral valve regurgitation. Mild aortic valve regurgitation. Mild aortic valve calcification. Moderately severe tricuspid regurgitation with a multiple regurgitant jets. Moderate pulmonary hypertension with an estimated pulmonary artery peak systolic pressure of 58 mmHg. Mild pulmonary valve regurgitation. There is no pericardial effusion. There are no intracardiac masses. Compared to the study from 09/07/2022, there is some worsening of the LV systolic function possibly from negative remodeling Discussed with family regarding patient being moderate to high risk for surgery however will await cardiology recommendations. Discussed echo results with the family and the patient. Patient has been on 2 L nasal cannula overnight. She did receive Lasix 40 IV x 1. Patient resting comfortably in bed. Vitals/I&O/Wt Last Vital Signs Temp 98.3 F 03/30/25 11:32 Pulse 82 03/30/25 11:32 Resp 17 03/30/25 11:32 BP 114/72 03/30/25 11:32 Pulse Ox 94 03/30/25 11:32 O2 Del Method Room Air 03/30/25 11:32 O2 Flow Rate 2.5 03/30/25 08:42 03/29/25 03/30/25 03/30/25 22:59 06:59 14:59 Output Total 1000 / 1000 400 / 1400 Balance -1000 / -1000 -400 / -1400 Weight last 48 hrs Weight 63.049 kg Weight 65.091 kg Weight 63.957 kg Physical Exam 2 Const: COMMON NORMALS: no acute distress and alert Resp: COMMON NORMALS: normal respiratory effort and No retractions (To auscultation bilaterally no wheezes conchae) Cardio: COMMON NORMALS: Peripheral pulses 2+ throughout PERIPHERAL PULSES: Peripheral pulses 2+ throughout Extremity: NARRATIVE EXTREMITY EXAM: (Right) lower extremity-leg is shortene d and externally rotated. Neuro: SENSORIUM/ORIENTATION: Yes alert Skin: GENERAL SKIN EXAM: dry skin Urinary Catheter Management: Archer: Cath Placed During This Visit: yes Reason for Continuing Indwelling Catheter: Required Immobilization for Trauma or Surgery or Anesthesia Urinary Catheter Date of Insertion: 03/29/25 Data 03/30/25 05:13 03/30/25 05:13 A&P Assessment and plan 1. Hypertension: 2. Benign essential hypertension with target blood pressure below 140/90: 3. Afib: 4. AICD (automatic cardioverter/defibrillator) present: 5. Hypothyroid: 6. Coronary artery disease: Plan: #Hip fracture #Atrial fibrillation #History of coronary disease # Acute on systolic congestive heart failure #Hypertension ? AICD in place ? Consult cardiology for cardiac clearance - Last known EF 20 to 25%. ? Check echocardiogram ? Patient denies chest pain shortness of breath at this time ? Continue aspirin Plavix - Levothyroxine - Continue metoprolol to tartrate - Continue Lasix 40 daily. - EKG shows A-fib with slow ventricular response, - Check TSH hemoglobin A1c ? Orthopedic surgery consulted. ? N.p.o. at midnight for anticipated hip fracture repair in AM. ? Continue aspirin Plavix for now. Will discuss with cardiology. ?If okayed by cardiology will hold aspirin and Plavix prior to surgery. ? N.p.o. at midnight in anticipation of possible procedure in a.m. ? Patient requiring 2 L nasal cannula at this time. Seems to be slightly fluid overloaded. Will order Lasix 40 IV x 1. ? Patient will need to be fluid optimized prior to surgery. ? Will await recommendation from cardiology. Full code DVT prophylaxis: Heparin subcu twice daily 03/30/2025 Echocardiogram resulted. EF now worsened compared to prior EF 15 to 20%. Will await recommendations from cardiology If okayed by cardiology will hold aspirin and Plavix and intubated of surgery. BNP 7575. Patient status post Lasix 40 IV x 1 overnight. Patient will need to be fluid optimized prior to surgery. TSH 6.35. Will check free T4 Hemoglobin A1c 6.0. Continue levothyroxine 100 daily Metoprolol tartrate 25 daily Continue amiodarone Orthopedic surgery consulted appreciate recommendations. PDMP PDMP Reviewed: Not Reviewed Attestations 2 Medical Necessity Statement*: Hip fracture, will need cardiac optimization prior to procedure. Greater than 2 midnight stay expected at this point. Diagnoses Hypertension I10 Benign essential hypertension with target blood pressure below 140/90 I10 Afib I48.91 AICD (automatic cardioverter/defibrillator) present Z95.810 Hypothyroid E03.9 Coronary artery disease I25.10
--- NOTE | 2025-03-30 11:58 | P.ANESASSM_ITS ---
Pre-Anesthetic Assessment Height/Weight: Height 5 ft 5 in Weight 139 lb Temp Pulse Resp BP Pulse Ox O2 Del Method O2 Flow Rate 98.3 F 82 17 114/72 94 Room Air 2.5 03/30/25 11:32 03/30/25 11:32 03/30/25 11:32 03/30/25 11:32 03/30/25 11:32 03/30/25 11:32 03/30/25 08:42 Preop Diagnosis: Hip fracture Operation Date: 03/31/25 08:00 Proposed Procedures p Hemiarthroplasty Hip(Right) - Collin Hermann, DO Was Beta Donnell taken within 24 hours: Yes Was Clonidine taken within 24 hours: N/A Last intake: Intake Last Liquid Date 03/29/25 Last Liquid Time 23:00 Last Solid Date 03/29/25 Last Solid Time 18:00 Social No alcohol and No tobacco Exam alert, oriented x 3, clear to auscultation bilaterally and regular rate & rhythm Airway Submandibular: within normal limits Cervical ROM: within normal limits Mallampati: Class III Dentition: false Anesthetic Plan ASA status: 4 Anesthesia: General Other: Patient admitted 03/29/2025 after experiencing a hip fracture from a fall. History of profound postop delirium after her previous surgery. History of CAD with AICD placement Echo showing EF of 15 to 20% with aneurysmal dilation of the LV apex. PA pressure 58. With severely elevated left atrial size Patient has a history of dementia A-fib on Plavix last taken on 03/29/2025 CKD history Labs reviewed from 03/30/2025 and acceptable for procedure Extensive conversation was had with patient and patient's son. Discussed that patient is high risk for an intraoperative cardiac event. We discussed foregoing chest compressions if patient's heart was to stop during the intraoperative period. Patient and family have decided that they would like to not pursue any form of chest compressions if such event was to occur. We will still plan on pharmaceutical resuscitation and management throughout the perioperative period Type and screen performed. Platelets ordered to be on hold Plan for general anesthesia with arterial line and second IV Medications/Allergies Home Medications ?Medication ?Instructions ?Recorded ?Confirmed ?Last Taken ?Type polyethylene glycol 3350 17 gram 17 g PO QAM 11/06/22 03/29/25 02/17/24 History oral powder packet (Miralax) alprazolam 0.25 mg tablet 0.25 mg PO BEDTIME PRN Sleep #30 11/11/23 03/29/25 03/28/25 19:00 Rx tabs levothyroxine 100 mcg tablet 100 mcg PO DAILY 11/11/23 03/29/25 03/29/25 06:00 History aspirin 325 mg tablet 325 mg PO DAILY 02/11/2411/1703/29/25 History albuterol sulfate 90 mcg/actuation 2 inh inhalation Q4 H PRN shortness 02/17/24 03/29/25 Unknown Rx aerosol inhaler of breath or wheezing #18 gr ams mineral oil 15 ml PO DAILY 05/10/2411/17 Unknown History clopidogrel 75 mg tablet See Rx Instructions .Route 1 03/29/25 03/29/25 Rx .COMPLEX #90 tabs metoprolol tartrate 25 mg tablet See Rx Instructions . Route 09/04/24 03/29/25 03/29/25 08:00 Rx .COMPLEX #30 tabs furosemide 40 mg tablet See Rx Instructions .Route 0 10/31/24 03/29/25 03/29/25 08:00 Rx .COMPLEX #135 tabs potassium chloride 10 mEq See Rx Instructions .Route 0 11/30/24 03/29/25 03/29/25 Rx tablet,extended release .COMPLEX #180 tabs amiodarone 200 mg tablet See Rx Instructions .Route 0 01/11/25 03/29/25 03/29/25 Rx .COMPLEX #90 tabs hydrocodone 7.5 mg-acetaminophen 1 tab PO Q4H PRN Pain 03/29/25 03/29/25 Unknown History 325 mg tablet Allergies Allergy/AdvReac Type Severity Reaction Status Date / Time atorvastatin (From Lipitor) Allergy ADR-Muscle Verified 11/16/24 14:55 Pain Current Medications Generic Name Dose Route Start Last Admin Trade Name Freq PRN Reason Stop Dose Admin Hydrocodone Bitart/Acetaminophen 1 tab 03/29/25 19:13 03/30/25 07:29 Hydrocodone-Acetaminophen 5-325 Mg Tablet PO 1 tab Q6H PRN Administration MODERATE PAIN Amiodarone HCl 200 mg 03/30/25 09:00 03/30/25 11:08 Amiodarone 200 Mg Tablet PO 200 mg DAILY RETA Administration Aspirin 325 mg 03/30/25 09:00 03/30/25 11:07 Aspirin 325 Mg Tablet PO 325 mg DAILY RETA Administration Clopidogrel Bisulfate 75 mg 03/30/25 09:00 03/30/25 11:07 Clopidogrel 75 Mg Tablet PO 75 mg DAILY RETA Administration Furosemide 60 mg 03/30/25 09:00 03/30/25 11:07 Furosemide 40 Mg Tablet PO 60 mg DAILY RETA Administration Heparin Sodium (Porcine) 5,000 unit 03/29/25 17:45 03/30/25 05:41 Heparin 5,000 Unit/Ml Inj 1 Ml SUBCUT Not Given Q12H [facility] Levothyroxine Sodium 100 mcg 03/30/25 09:00 03/30/25 11:08 Levothyroxine 100 Mcg Tablet PO 100 mcg DAILY RETA Administration Pantoprazole Sodium 40 mg 03/30/25 09:00 03/30/25 11:[address] 40 Mg Tablet PO 40 mg DAILY RETA Administration Polyethylene Glycol 17 gm 03/30/25 06:00 03/30/25 05:41 Polyethylene Glycol 3350 Pkt 17 Gm PO [facility] [place] Additional Medication Information Current Medications Acetaminophen (Acetaminophen 325 Mg Tablet) 650 mg PO Q6H PRN PRN Reason: Mild/Mod Pain Or Temp >/= 101 Hydrocodone Bitart/Acetaminophen (Hydrocodone-Acetaminophen 5-325 Mg Tablet) 1 tab PO Q6H PRN PRN Reason: MODERATE PAIN Last Admin: 03/30/25 13:13 Dose: 1 tab Albuterol Sulfate (Albuterol 2.5 Mg/3 Ml Neb) 2.5 mg INHALATION Q4H PRN PRN Reason: shortness of breath or wheezing Albuterol Sulfate (Albuterol 2.5 Mg/3 Ml Neb) 2.5 mg INHALATION Q4H.RESPIRATORY PRN PRN Reason: SHORTNESS OF BREATH Amiodarone HCl (Amiodarone 200 Mg Tablet) 200 mg PO DAILY [facility] Last Admin: 03/30/25 11:08 Dose: 200 mg Aspirin (Aspirin 325 Mg Tablet) 325 mg PO DAILY [facility] On Hold: 03/30/25 12:39 Resume: 04/03/25 09:00 Last Admin: 03/30/25 11:07 Dose: 325 mg Clopidogrel Bisulfate (Clopidogrel 75 Mg Tablet) 75 mg PO DAILY RETA On Hold: 03/30/25 12:39 Resume: 04/03/25 09:00 Last Admin: 03/30/25 11:07 Dose: 75 mg Furosemide (Furosemide 40 Mg Tablet) 60 mg PO DAILY [facility] Last Admin: 03/30/25 11:07 Dose: 60 mg Heparin Sodium (Porcine) (Heparin 5,000 Unit/Ml Inj 1 Ml) 5,000 unit SUBCUT Q12H [facility] Last Admin: 03/30/25 05:41 Dose: Not Given Levothyroxine Sodium (Levothyroxine 100 Mcg Tablet) 100 mcg PO DAILY [facility] Last Admin: 03/30/25 11:08 Dose: 100 mcg Metoprolol Tartrate (Metoprolol Tartrate 25 Mg Tablet) 25 mg PO DAILY PRN PRN Reason: PALPITATIONS Morphine Sulfate (Morphine 4 Mg/Ml Sdv 1 Ml) 1 mg IVP Q6H PRN PRN Reason: SEVERE PAIN Ondansetron HCl (Ondansetron 2 Mg/Ml Sdv 2 Ml) 4 mg IVP Q8H PRN PRN Reason: vomiting, or N/V if npo Pantoprazole Sodium (Pantoprazole Dr 40 Mg Tablet) 40 mg PO DAILY [facility] Last Admin: 03/30/25 11:08 Dose: 40 mg Polyethylene Glycol (Polyethylene Glycol 3350 Pkt 17 Gm) 17 gm PO QAM [facility] Last Admin: 03/30/25 05:41 Dose: Not Given PFSH Anesthesia Medical History (Updated 03/30/25 @ 16:47 by Yazan Angelo MD) Hypothyroid Coronary artery disease Cardiogenic shock Congestive heart failure Blood in stool POP-Q stage 3 rectocele Rectocele Cystocele Diverticulosis Chronic episodic atrial fibrillation Intermittent atrial fibrillation. Could not tolerate the oral anticoagulation. So she is on Plavix and aspirin Afib Shortness of breath Primary hypertension Surgical History AICD (automatic cardioverter/defibrillator) present History of colonoscopy with polypectomy 2019 H/O total knee replacement right knee History of tubal ligation Hx of appendectomy H/O: hysterectomy H/O thyroidectomy Family History Father , unknown age CAD (coronary artery disease) Brother , age unknown Cancer colon Sister Cancer lungs Mother , in late 60s Lung disease Denies family history of Colon cancer Ovarian cancer Diabetes Clotting disorder Hyperlipidemia Chronic kidney disease (CKD) Breast cancer Suicide Anesthesia complication Bleeding disorder Uterine cancer Thyroid disease Stroke Social History Smoking and tobacco/nicotine status: former use of tobacco/nicotine Alcohol intake: never Substance/Drug Use: never Current occupational status: retired Data Anesthesia 04/01/25 03:22 04/01/25 03:22 Short CBC 03/29/25 03/30/25 Range/Units 12:42 05:13 WBC 5.07 7.90 (3.29-11.43) 10^3/uL Hgb 11.90 11.80 (11.27-16.99) g/dL Hct 39.1 38.5 (36-47) % MCV 88.7 89.7 (85-98) fl Plt Count 217 211 (157-399) 10^3/cmm Neut % (Auto) 67.7 82.7 % Neut # (Auto) 3.43 6.53 (1.8-7.7) 10^3/uL BMP 03/29/25 03/30/25 12:42 05:13 Sodium 141 142 Potassium 3.8 3.8 Chloride 100 101 Carbon Dioxide 27 26 BUN 25 H 23 Creatinine 0.9 0.9 Glucose 91 123 H Calcium 9.2 8.8 Cardiac Enzymes 03/29/25 Range/Units 12:42 NT-Pro-B Natriuret Pep 7575 H (0-450) pg/mL Liver Function 03/29/25 03/30/25 Range/Units 12:42 05:13 Total Bilirubin 1.2 1.3 H (0.15-1.2) mg/dL AST 21 23 (0-32) U/L ALT 14 15 (0-33) U/L Alkaline Phosphatase 81 77 (35-105) U/L Albumin 4.1 3.9 (3.5-5.2) g/dL Urine 03/29/25 Range/Units 16:18 Urine Color Yellow (Yellow) Urine Appearance Clear (CLEAR) Urine pH 5.5 (5-7) Ur Specific [place] 1.010 (1.005-1.030) Urine Protein Trace A (Negative) Urine Glucose (UA) Negative (Normal) Urine Ketones Negative (Negative) Urine Nitrate Negative (Negative) Urine Bilirubin Negative (Negative) Ur Leukocyte Esterase Negative (Negative) Urine RBC 0-2 (0-2) /hpf Urine WBC 0-5 (0-5) /hpf Coags 03/29/25 12:42 PT 15.20 H INR 1.12 APTT 28.3 Cardiac Studies: 2 Echocardiogram 03/29/25 Echocardiogram Limited Views 09/07/22 Echocardiogram Ultrasound 10/25/20 Sestamibi Stress Test (Cardiology) 10/28
[2025-03-30 12:13] LABS: Free T4 Free Thyroxine 1.87 ng/dL (0.82-1.77)
--- NOTE | 2025-03-30 14:22 | PC.SOCIAL ---
IMM updated IMM dated and initialed, copy placed in chart and copy given to patient.
--- NOTE | 2025-03-30 15:14 | PM.MISC ---
Miscellaneous Note Note: Had a goals of care discussion with patient's son and patient this morning. She states she would like to be DNR/DNI. He states she has also talked about home arrangements if it comes to it. Son in agreement. RN present.
--- NOTE | 2025-03-30 16:41 | P.PN_ITS ---
Subjective 2 Subjective: Patient is doing okay. Has no chest pain or shortness of breath. Her echocardiogram revealed LV ejection fraction around 15 to 20%. Vital signs seems to be stable. Denies any orthopnea or PND. Medications: Medication Review Details: Current Medications Acetaminophen (Acetaminophen 325 Mg Tablet) 650 mg PO Q6H PRN PRN Reason: Mild/Mod Pain Or Temp >/= 101 Hydrocodone Bitart/Acetaminophen (Hydrocodone-Acetaminophen 5-325 Mg Tablet) 1 tab PO Q6H PRN PRN Reason: MODERATE PAIN Last Admin: 03/30/25 13:13 Dose: 1 tab Albuterol Sulfate (Albuterol 2.5 Mg/3 Ml Neb) 2.5 mg INHALATION Q4H PRN PRN Reason: shortness of breath or wheezing Albuterol Sulfate (Albuterol 2.5 Mg/3 Ml Neb) 2.5 mg INHALATION Q4H.RESPIRATORY PRN PRN Reason: SHORTNESS OF BREATH Amiodarone HCl (Amiodarone 200 Mg Tablet) 200 mg PO DAILY [facility] Last Admin: 03/30/25 11:08 Dose: 200 mg Aspirin (Aspirin 325 Mg Tablet) 325 mg PO DAILY [facility] On Hold: 03/30/25 12:39 Resume: 04/03/25 09:00 Last Admin: 03/30/25 11:07 Dose: 325 mg Clopidogrel Bisulfate (Clopidogrel 75 Mg Tablet) 75 mg PO DAILY [facility] On Hold: 03/30/25 12:39 Resume: 04/03/25 09:00 Last Admin: 03/30/25 11:07 Dose: 75 mg Furosemide (Furosemide 40 Mg Tablet) 60 mg PO DAILY [facility] Last Admin: 03/30/25 11:07 Dose: 60 mg Heparin Sodium (Porcine) (Heparin 5,000 Unit/Ml Inj 1 Ml) 5,000 unit SUBCUT Q12H [facility] Last Admin: 03/30/25 05:41 Dose: Not Given Levothyroxine Sodium (Levothyroxine 100 Mcg Tablet) 100 mcg PO DAILY [facility] Last Admin: 03/30/25 11:08 Dose: 100 mcg Metoprolol Tartrate (Metoprolol Tartrate 25 Mg Tablet) 25 mg PO DAILY PRN PRN Reason: PALPITATIONS Morphine Sulfate (Morphine 4 Mg/Ml Sdv 1 Ml) 1 mg IVP Q6H PRN PRN Reason: SEVERE PAIN Ondansetron HCl (Ondansetron 2 Mg/Ml Sdv 2 Ml) 4 mg IVP Q8H PRN PRN Reason: vomiting, or N/V if npo Pantoprazole Sodium (Pantoprazole Dr 40 Mg Tablet) 40 mg PO DAILY [facility] Last Admin: 03/30/25 11:08 Dose: 40 mg Polyethylene Glycol (Polyethylene Glycol 3350 Pkt 17 Gm) 17 gm PO QAM [facility] Last Admin: 03/30/25 05:41 Dose: Not Given Vitals/I&O/Wt Last Vital Signs Temp 98.1 F 03/30/25 16:00 Pulse 88 03/30/25 16:00 Resp 16 03/30/25 16:00 BP 108/67 03/30/25 16:00 Pulse Ox 91 03/30/25 16:00 O2 Del Method Room Air 03/30/25 16:00 O2 Flow Rate 2.5 03/30/25 08:42 03/30/25 03/30/25 03/30/25 06:59 14:59 22:59 Intake Total 120 / 120 Output Total 400 / 1400 1000 / 1000 Balance -400 / -1400 120 / 120 -1000 / -880 Weight last 48 hrs Weight 139 lb Weight 143 lb 8 oz Weight 141 lb Physical Exam 2 Narrative: GENERAL: The patient is alert and oriented times three. Not in any acute distress. HEENT: Mild pallor. No icterus or lymphadenopathy.Oral cavity: There are no mucous membrane lesions. NECK: Trachea appears to be central. No masses noted. No JVD or thyromegaly appreciated. RESPIRATORY: Chest is symmetrical. No intercostals muscle retraction or any accessory muscle activation. There is no chest wall tenderness. Breath sounds are heard bilaterally. No rales or rhonchi heard. No evidence of any consolidation. BREASTS: Deferred. HEART: The heart sounds are normal. No S3 or S4. No significant murmurs. No pericardial rub ABDOMEN: No vessel pulsations or distention. No tenderness. No organomegaly appreciated. Bowel sounds are normally heard. : Deferred. RECTAL: Deferred. LYMPHATIC: No lymphadenopathy noted in the neck. EXTREMITIES: No edema or cyanosis. No clubbing. Peripheral pulses are palpable and fairly good volume and amplitude. MUSCULOSKELETAL: Right hip somewhat externally rotated and very painful SKIN: There are no significant rashes or ecchymosis NEUROPSYCHIATRIC: The patient is alert and oriented x3. Appears to be in a good mood. No tremors or rigidity noted. Urinary Catheter Management: Archer: Cath Placed During This Visit: yes Reason for Continuing Indwelling Catheter: Required Immobilization for Trauma or Surgery or Anesthesia Urinary Catheter Date of Insertion: 03/29/25 Data 03/30/25 05:13 03/30/25 05:13 Other Labs: Laboratory Last Values WBC 7.90 10^3/uL (3.29-11.43) 03/30/25 05:13 RBC 4.29 10^6/uL (3.85-5.65) 03/30/25 05:13 Hgb 11.80 g/dL (11.27-16.99) 03/30/25 05:13 Hct 38.5 % (36-47) 03/30/25 05:13 MCV 89.7 fl (85-98) 03/30/25 05:13 MCH 27.5 pg (27-33) 03/30/25 05:13 MCHC 30.6 g/dL (30-55) 03/30/25 05:13 RDW 16.0 % (12.1-15.1) H 03/30/25 05:13 Plt Count 211 10^3/cmm (157-399) 03/30/25 05:13 MPV 9.5 fL (7.4-10.4) 03/30/25 05:13 Neut % (Auto) 82.7 % 03/30/25 05:13 Lymph % (Auto) 7.6 % 03/30/25 05:13 [place] % (Auto) 8.7 % 03/30/25 05:13 Eos % (Auto) 0.1 % 03/30/25 05:13 Baso % (Auto) 0.6 % 03/30/25 05:13 Neut # (Auto) 6.53 10^3/uL (1.8-7.7) 03/30/25 05:13 Lymph # (Auto) 0.6 10^3/uL (0.8-4.8) L 03/30/25 05:13 [place] # (Auto) 0.7 10^3/uL (0.2-0.9) 03/30/25 05:13 Eos # (Auto) 0.0 10^3/uL (0.0-0.8) 03/30/25 05:13 Baso # (Auto) 0.1 10^3/uL (0.0-0.1) 03/30/25 05:13 Nucleated RBC % (auto) 0 % 03/30/25 05:13 Nucleated RBCs # 0.0 /100WBC 03/30/25 05:13 PT 15.20 SECONDS (12.1-14.9) H 03/29/25 12:42 INR 1.12 (0.8-1.2) 03/29/25 12:42 APTT 28.3 SECONDS (23.9-36.7) 03/29/25 12:42 Sodium 142 mmol/L (136-145) 03/30/25 05:13 Potassium 3.8 mmol/L (3.5-5.1) 03/30/25 05:13 Chloride 101 mmol/L (98-107) 03/30/25 05:13 Carbon Dioxide 26 mmol/L (22-29) 03/30/25 05:13 Anion Gap 18.8 (5-19) 03/30/25 05:13 BUN 23 mg/dL (8-23) 03/30/25 05:13 Creatinine 0.9 mg/dL (0.5-0.9) 03/30/25 05:13 GFR Calculation Not Reportable 03/30/25 05:13 Glucose 123 mg/dL (65-115) H 03/30/25 05:13 Estimat Average Glucose 126 03/29/25 12:42 Hemoglobin A1c 6.0 % (4.0-6.0) 03/29/25 12:42 Calculated Osmolality 299 mOsm/kg (285-295) H 03/30/25 05:13 Calcium 8.8 mg/dL (8.5-10.5) 03/30/25 05:13 Magnesium 2.0 mg/dL (1.7-2.3) 03/30/25 05:13 Total Bilirubin 1.3 mg/dL (0.15-1.2) H 03/30/25 05:13 AST 23 U/L (0-32) 03/30/25 05:13 ALT 15 U/L (0-33) 03/30/25 05:13 Alkaline Phosphatase 77 U/L (35-105) 03/30/25 05:13 NT-Pro-B Natriuret Pep 7575 pg/mL (0-450) H 03/29/25 12:42 Total Protein 7.4 g/dL (6.6-8.7) 03/30/25 05:13 Albumin 3.9 g/dL (3.5-5.2) 03/30/25 05:13 Globulin 3.5 g/dL (1.3-4.6) 03/30/25 05:13 TSH 6.35 uIU/mL (0.27-4.20) H 03/29/25 12:42 Free T4 1.87 ng/dL (0.82-1.77) H 03/30/25 05:13 Urine Color Yellow (Yellow) 03/29/25 16:18 Urine Appearance Clear (CLEAR) 03/29/25 16:18 Urine pH 5.5 (5-7) 03/29/25 16:18 Ur Specific [place] 1.010 (1.005-1.030) 03/29/25 16:18 Urine Protein Trace (Negative) A 03/29/25 16:18 Urine Glucose (UA) Negative (Normal) 03/29/25 16:18 Urine Ketones Negative (Negative) 03/29/25 16:18 Urine Blood Trace (Negative) A 03/29/25 16:18 Urine Nitrate Negative (Negative) 03/29/25 16:18 Urine Bilirubin Negative (Negative) 03/29/25 16:18 Urine Urobilinogen 1.0 mg/dL (Negative) 03/29/25 16:18 Ur Leukocyte Esterase Negative (Negative) 03/29/25 16:18 Urine RBC 0-2 /hpf (0-2) 03/29/25 16:18 Urine WBC 0-5 /hpf (0-5) 03/29/25 16:18 Ur Squamous Epith Cells 0-5 /hpf (0-5) 03/29/25 16:18 Amorphous Sediment Not Reportable 03/29/25 16:18 Urine Bacteria None seen /hpf (NONE) 03/29/25 16:18 Hyaline Casts 1.21 /lpf 03/29/25 16:18 Blood Type A Negative 03/30/25 14:01 Rho(D) Type Rh negative 03/30/25 14:01 Antibody Screen Negative 03/30/25 14:01 Other data: Thinned out and almost akinetic septum and anteroseptal segments. Aneurysmal dilatation of the LV apex. Moderately dilated left ventricle. LV ejection fraction around 15 to 20%, visual. Pacemaker/defibrillator wire in the right ventricle. Moderately depressed RV ejection fraction. Severely increased right atrial size. Pacemaker/defibrillator wire was noted on the right atrium. Severely increased left atrial size. Thickened mitral valve. Moderately severe mitral valve regurgitation. Mild aortic valve regurgitation. Mild aortic valve calcification. Moderately severe tricuspid regurgitation with a multiple regurgitant jets. Moderate pulmonary hypertension with an estimated pulmonary artery peak systolic pressure of 58 mmHg. Mild pulmonary valve regurgitation. There is no pericardial effusion. There are no intracardiac masses. Compared to the study from 09/07/2022, there is some worsening of the LV systolic function possibly from negative remodeling A&P Assessment and plan 1. Ischemic cardiomyopathy: The echocardiogram from yesterday was reviewed. Ejection fraction was around 15 to 20%. Details as mentioned above. She also was found to have moderately severe mitral and tricuspid regurgitation with moderate pulmonary hypertension. 2. Chronic episodic atrial fibrillation: She is in a multifocal atrial rhythm. Not on any oral anticoagulation- apparently she could not tolerate oral anticoagulant.. 3. AICD (automatic cardioverter/defibrillator) present: Patient has a single-chamber device with a backup rate of 40 bpm. The device function was found to be appropriate based on the evaluation in January. 4. Atherosclerosis of [place] coronary artery of [place] heart without angina pectoris: Currently the patient has no specific symptoms of coronary insufficiency. Myocardial on the current medications. 5. Primary hypertension: Currently normotensive. May continue on the current medications. 6. Chronic systolic (congestive) heart failure: Clinically compensated. The proBNP is found to be elevated in the 7000 range. Most recent proBNP prior to this is from 2022. It was in the 4000 range at that time. Clinically she does not seems to be in heart failure. She has been taking Lasix on a daily basis at home. Plan: In view of the patient's severe LV systolic dysfunction, advanced age, cardiac arrhythmia and other comorbidities, she carries a higher risk for any surgical procedure. This was discussed with the patient and her son in detail, which they understood well. Patient is wanting to go ahead with the procedure. She need to be closely monitored during the perioperative phase Careful fluid management PDMP PDMP Reviewed: Not Reviewed Attestations 2 Medical Necessity Statement*: Deferred to the primary Coding Level of Care Code 99212 Diagnoses Ischemic cardiomyopathy I25.5 Chronic episodic atrial fibrillation I48.20 AICD (automatic cardioverter/defibrillator) present Z95.810 Atherosclerosis of [place] coronary artery of [place] heart without angina pectoris I25.10 Coronary Disease-Associated Artery/Lesion type: [place] artery Primary hypertension I10 Hypertension type: primary hypertension Chronic systolic (congestive) heart failure I50.22
[2025-03-30] MEDS: heparin 5,000 unit/mL INJ 1 mL 5000 UNIT SUBCUT (17:02)
--- NOTE | 2025-03-30 17:20 | PM.PN ---
Subjective Subjective: Patient was seen and examined today accompanied by son and family. No change overnight. Discussed treatment options with patient and family electing to proceed with a right hip hemiarthroplasty. She did receive a Plavix dosing this morning as a result we will plan on holding off for her surgery and perform this on Wednesday her case is already added on with the executive housekeeper. Patient and family understand and agree to proceed with intervention on Wednesday Vitals/I&O/Wt Last Vital Signs Temp 98.1 F 03/30/25 16:00 Pulse 88 03/30/25 16:00 Resp 16 03/30/25 16:00 BP 108/67 03/30/25 16:00 Pulse Ox 91 03/30/25 16:00 O2 Del Method Room Air 03/30/25 16:00 O2 Flow Rate 2.5 03/30/25 08:42 03/30/25 03/30/25 03/30/25 06:59 14:59 22:59 Intake Total 120 / 120 Output Total 400 / 1400 1000 / 1000 Balance -400 / -1400 120 / 120 -1000 / -880 Weight last 48 hrs Weight 139 lb Weight 143 lb 8 oz Weight 141 lb Physical Exam Const: COMMON NORMALS: no acute distress and alert Resp: COMMON NORMALS: normal respiratory effort and No retractions Cardio: COMMON NORMALS: Peripheral pulses 2+ throughout PERIPHERAL PULSES: Peripheral pulses 2+ throughout Extremity: NARRATIVE EXTREMITY EXAM: (Right) lower extremity-leg is shortened and externally rotated. Positive logroll test. Tenderness to palpation right hip. compartments are soft and compressible. Patient can Wiggle toes. Toes are warm and well-perfused. Pedal pulse 2+. Mild ecchymosis pretibial region no bony tenderness. Secondary assessment of other extremities. Upper extremities-left forearm has ecchymosis and skin tear. Full range of motion in shoulders, elbows and wrist. no tenderness to palpation of shoulders or wrist. (Left) lower extremity-no visible injury or trauma seen. Full range of motion in hip. Negative logroll test. Patient able to perform straight leg raise and can dorsiflex plantarflex foot. Pedal pulse 2+ and patient can wiggle toes. Neuro: SENSORIUM/ORIENTATION: Yes alert Skin: GENERAL SKIN EXAM: dry skin Urinary Catheter Management: Archer: Cath Placed During This Visit: yes Reason for Continuing Indwelling Catheter: Required Immobilization for Trauma or Surgery or Anesthesia Urinary Catheter Date of Insertion: 03/29/25 Data 03/30/25 05:13 03/30/25 05:13 A&P Assessment and plan 1. Fracture of femoral neck, right, closed: Plan: -Imaging and Labs reviewed -Hospitalist on board for medical management. -VTE prophylaxis -Nonweightbearing on right leg -Pain control -Hold daily plavix - Plan for surgery on Wednesday 8 AM for right hip hemiarthroplasty -Discussed with cardiology at this point in time she is a very high risk given her EF. Appreciate cardiology optimizing patient from a cardiac standpoint prior to surgery - Ortho to follow patient tomorrow Patient this point in time has family at bedside today we had a long thoughtful discussion about her treatment options here moving forward we talked about nonoperative we talked about [place] procedure hip hemiarthroplasty as her treatment options and through shared decision making with patient and family they elect to proceed with a right hip hemiarthroplasty. She understands the ins and outs of procedure the risk the benefits complication alternatives with surgical nonsurgical treatment options. Risk of surgery include but not limited to make it better, make it worse, injury to nerves vessels or tendons, infection, leg length discrepancies, hip instability, possible cardiac arrest or on the table. Understanding risks with surgery patient as well as family elected proceed with surgical intervention for right hip hemiarthroplasty. She had received her home dosing of Plavix and aspirin today at this point in time we will plan on holding off on surgery tomorrow to allow for this to better get half-life which I feel will better optimize her once again we talked about waiting a full 5 days which I feel would not be appropriate at this standpoint for this patient but I feel an extra day of time to allow for the Plavix to process through the system will hopefully lower her risks of intraoperative blood loss we talked about this all in detail and her risks with it and they elect to proceed with her surgery on Wednesday at 8 AM which now be 2 days from her last Plavix dosing. We did also discuss if there were to be any type of cardiac arrest during surgery she and family wish to have no compressions at this time. This point in time we will get her optimized for surgery tomorrow and plan for surgery on Wednesday all questions answered. Will continue to follow patient PDMP PDMP Reviewed: Not Reviewed Attestations Medical Necessity Statement*: Per primary?hip fracture, will need cardiac optimization prior to procedure. Greater than 2 midnight stay expected at this point. Coding Level of Care Code Acute Code for [facility] Fwd Diagnoses Fracture of femoral neck, right, closed S72.001A
[2025-03-31] VITALS (8 sets, daily range): BP systolic 99–123; BP diastolic 57–78; PULSE 68–94; RESP 16–18; TEMP 35.7–36.9; O2SAT 91–100
[2025-03-31] MEDS: HYDROcodone-acetaminophen 5-325 mg Tablet 1 TAB PO ×2 (02:29→16:04)
[2025-03-31 05:36] LABS: Hematocrit 35.5 % (36-47); Hemoglobin 10.80 g/dL (11.27-16.99); Mean Corpuscular HGB Conc 30.4 g/dL (30-55); Mean Corpuscular Hemoglobin 26.9 pg (27-33); Mean Corpuscular Volume 88.3 fl (85-98); Nucleated Red Blood Cells % 0 %; Platelet Count 189 10^3/cmm (157-399); Red Blood Count 4.02 10^6/uL (3.85-5.65); White Blood Count 7.37 10^3/uL (3.29-11.43)
[2025-03-31 05:56] LABS: Alanine Aminotransferase 12 U/L (0-33); Albumin Level 3.3 g/dL (3.5-5.2); Alkaline Phosphatase 66 U/L (35-105); Anion Gap 10.3 (5-19); Aspartate Amino Transferase 19 U/L (0-32); Blood Urea Nitrogen 18 mg/dL (8-23); Calcium 8.3 mg/dL (8.5-10.5); Carbon Dioxide 30 mmol/L (22-29); Chloride 100 mmol/L (98-107); Creatinine Clr Calc Pharmacy 51.7029; Globulin 3.0 g/dL (1.3-4.6); Glucose 105 mg/dL (65-115); Magnesium 2.0 mg/dL (1.7-2.3); Osmolality Calculated 286 mOsm/kg (285-295); Potassium 3.3 mmol/L (3.5-5.1); Sodium 137 mmol/L (136-145); Total Protein 6.3 g/dL (6.6-8.7)
[2025-03-31] MEDS: polyethylene glycol 3350 Pkt 17 gm PO (06:04)
[2025-03-31] MEDS: heparin 5,000 unit/mL INJ 1 mL 5000 UNIT SUBCUT ×2 (06:04→16:05)
--- NOTE | 2025-03-31 09:58 | XRR_ITS ---
PROCEDURE INFORMATION: Exam: XR Chest Exam date and time: 03/31/2025 10:10 AM Age: 79 years old Clinical indication: Other: Pulm edema. No history of recent trauma or surgery is provided. TECHNIQUE: Imaging protocol: Radiologic exam of the chest. 1image(s) are provided. Views: 1 view. COMPARISON: 1. CR XR chest 1V portable [id number] 02/17/2024 8:49 AM 2. CR XR chest 1V portable [id number] 11/18/2023 7:53 AM FINDINGS: Lungs: There is some patchy atelectatic consolidation of the lung bases left more so than right and may be slightly increased in the interval. There appears to be some mild underlying air trapping along with some central bronchiolectasis. Pleural spaces: No interval pneumothorax is appreciated. There is some pleural fluid blunting the costophrenic angles. Heart/Mediastinum: The cardiomediastinal silhouette is upper normal in size.This can be seen with central averaging as well as varsha enlargement.No interval overt cardiac decompensation type edema is currently appreciated.Atherosclerotic vascular changes are demonstrated. The cardiac lead positioning appears similar. Diaphragm: The hemidiaphragms are somewhat obscured. Bones/joints: No interval displaced fracture or dislocation is appreciated.There are some degenerative changes of the shoulders and spine overall present. Soft tissues: No radiopaque foreign body or subcutaneous emphysema is appreciated. No other significant interval changes are appreciated. XR/XR chest 1V portable [id number] IMPRESSION: There is some similar pleural fluid blunting the costophrenic angles along with some patchy atelectatic consolidation of the lung bases appears slightly progressed in the interval left more so than right suggestive of some early inflammation.
--- NOTE | 2025-03-31 12:00 | PM.PN ---
Subjective Subjective: Patient doing well. Plan for surgery tomorrow. Vitals/I&O/Wt Last Vital Signs Temp 96.2 F L 03/31/25 08:00 Pulse 68 03/31/25 09:51 Resp 16 03/31/25 09:51 BP 117/74 03/31/25 08:00 Pulse Ox 100 03/31/25 09:51 O2 Del Method Nasal Cannula 03/31/25 09:51 O2 Flow Rate 2 03/31/25 09:51 03/30/25 03/31/25 03/31/25 22:59 06:59 14:59 Intake Total 360 / 360 Output Total 1000 / 1000 575 / 1575 Balance -1000 / -880 -575 / -1455 360 / 360 Weight last 48 hrs Weight 138 lb 12.8 oz Weight 139 lb Weight 143 lb 8 oz Weight 141 lb Physical Exam Narrative: GENERAL: Patient is alert, awake and oriented x3. [] NECK: No jugular vein distension. [] HEENT: No cyanosis. No icterus. No pallor. [] HEART: Regular S1 and S2. No murmur, rub or gallop. [] LUNGS: Clear to auscultate bilaterally. [] CENTRAL NERVOUS SYSTEM: Grossly nonfocal. [] EXTREMITIES: Lower extremities with 1+ edema bilaterally. Urinary Catheter Management: Archer: Cath Placed During This Visit: yes Reason for Continuing Indwelling Catheter: Required Immobilization for Trauma or Surgery or Anesthesia Urinary Catheter Date of Insertion: 03/29/25 Data 04/01/25 03:22 04/01/25 03:22 A&P Assessment and plan 1. Ischemic cardiomyopathy: 2. Chronic episodic atrial fibrillation: 3. AICD (automatic cardioverter/defibrillator) present: 4. Atherosclerosis of [place] coronary artery of [place] heart without angina pectoris: 5. Primary hypertension: 6. Chronic systolic (congestive) heart failure: Plan: Patient is stable. Because of severely reduced LV systolic function, patient is at moderate to high risk for general anesthesia administration. However she is well compensated from cardiac standpoint. Can hold lasix on day of procedure Thank you for involving us with care of this patient. We will continue to follow. Please call with questions. PDMP PDMP Reviewed: Not Reviewed Attestations Medical Necessity Statement*: Care expected to cross 2 midnights. Coding Level of Care Code Acute Code for [facility] Fwd Diagnoses Ischemic cardiomyopathy I25.5 Chronic episodic atrial fibrillation I48.20 AICD (automatic cardioverter/defibrillator) present Z95.810 Atherosclerosis of [place] coronary artery of [place] heart without angina pectoris I25.10 Coronary Disease-Associated Artery/Lesion type: [place] artery Primary hypertension I10 Hypertension type: primary hypertension Chronic systolic (congestive) heart failure I50.22
--- NOTE | 2025-03-31 14:23 | P.PN_ITS ---
Subjective 2 Subjective: Patient seen and examined today. Patient ready to proceed with surgical intervention tomorrow plan for right hip hemiarthroplasty tomorrow. Vitals/I&O/Wt Last Vital Signs Temp 98.1 F 03/31/25 12:00 Pulse 86 03/31/25 12:00 Resp 18 03/31/25 12:00 BP 103/60 03/31/25 12:00 Pulse Ox 99 03/31/25 12:00 O2 Del Method Room Air 03/31/25 12:00 O2 Flow Rate 2 03/31/25 09:51 03/30/25 03/31/25 03/31/25 22:59 06:59 14:59 Intake Total 360 / 360 Output Total 1000 / 1000 575 / 1575 Balance -1000 / -880 -575 / -1455 360 / 360 Weight last 48 hrs Weight 138 lb 12.8 oz Weight 139 lb Weight 143 lb 8 oz Physical Exam 2 Const: COMMON NORMALS: no acute distress and alert Resp: COMMON NORMALS: normal respiratory effort and No retractions Cardio: COMMON NORMALS: Peripheral pulses 2+ throughout PERIPHERAL PULSES: Peripheral pulses 2+ throughout Extremity: NARRATIVE EXTREMITY EXAM: (Right) lower extremity-leg is shortene d and externally rotated. Positive logroll test. Tenderness to palpation right hip. compartments are soft and compressible. Patient can Wiggle toes. Toes are warm and well-perfused. Pedal pulse 2+. Mild ecchymosis pretibial region no bony tenderness. Neuro: SENSORIUM/ORIENTATION: Yes alert Skin: GENERAL SKIN EXAM: dry skin Urinary Catheter Management: Acrher: Cath Placed During This Visit: yes Reason for Continuing Indwelling Catheter: Required Immobilization for Trauma or Surgery or Anesthesia Urinary Catheter Date of Insertion: 03/29/25 Data 04/03/25 05:21 04/03/25 05:21 A&P Assessment and plan 1. Fracture of femoral neck, right, closed: Plan: -Imaging and Labs reviewed -Hospitalist on board for medical management. -VTE prophylaxis -Nonweightbearing on right leg -Pain control -Hold daily plavix - Plan for surgery on Wednesday 8 AM for right hip hemiarthroplasty -Discussed with cardiology at this point in time she is a very high risk given her EF. Appreciate cardiology optimizing patient from a cardiac standpoint prior to surgery N.p.o. at midnight plan for surgical intervention for right hip hemiarthroplasty tomorrow patient and family understand agree with current plan. All questions answered. Patient ready proceed with surgical intervention tomorrow. PDMP PDMP Reviewed: Not Reviewed Attestations 2 Medical Necessity Statement*: Ongoing care right hip displaced femoral neck fracture requiring surgical intervention tomorrow Coding Level of Care Code Acute Code for [facility] Fwd Diagnoses Fracture of femoral neck, right, closed S72.001A
[2025-03-31] MEDS: piperacillin-tazobactam 3.375 GM in sodium chloride 0.9% (plus) 50 ML IV (16:05)
--- NOTE | 2025-03-31 16:16 | P.PN_ITS ---
Subjective 2 Subjective: Hemoglobin 10.8 this morning Potassium 3.3. On room air. Patient awaiting surgery in AM. Vitals/I&O/Wt Last Vital Signs Temp 98.1 F 03/31/25 12:00 Pulse 86 03/31/25 12:00 Resp 18 03/31/25 12:00 BP 103/60 03/31/25 12:00 Pulse Ox 99 03/31/25 12:00 O2 Del Method Room Air 03/31/25 12:00 O2 Flow Rate 2 03/31/25 09:51 03/31/25 03/31/25 03/31/25 06:59 14:59 22:59 Intake Total 360 / 360 Output Total 575 / 1575 Balance -575 / -1455 360 / 360 Weight last 48 hrs Weight 62.959 kg Weight 63.049 kg Weight 65.091 kg Physical Exam 2 Const: COMMON NORMALS: no acute distress and alert Resp: COMMON NORMALS: normal respiratory effort and No retractions (To auscultation bilaterally no wheezes conchae) Cardio: COMMON NORMALS: Peripheral pulses 2+ throughout PERIPHERAL PULSES: Peripheral pulses 2+ throughout Extremity: NARRATIVE EXTREMITY EXAM: (Right) lower extremity-leg is shortene d and externally rotated. Neuro: SENSORIUM/ORIENTATION: Yes alert Skin: GENERAL SKIN EXAM: dry skin Urinary Catheter Management: Archer: Cath Placed During This Visit: yes Reason for Continuing Indwelling Catheter: Required Immobilization for Trauma or Surgery or Anesthesia Urinary Catheter Date of Insertion: 03/29/25 Data 03/31/25 04:50 03/31/25 04:50 A&P Assessment and plan 1. Hypertension: 2. Benign essential hypertension with target blood pressure below 140/90: 3. Afib: 4. AICD (automatic cardioverter/defibrillator) present: 5. Hypothyroid: 6. Coronary artery disease: Plan: #Hip fracture #Atrial fibrillation #History of coronary disease # Acute on systolic congestive heart failure #Hypertension ? AICD in place ? Consult cardiology for cardiac clearance - Last known EF 20 to 25%. ? Check echocardiogram ? Patient denies chest pain shortness of breath at this time ? Continue aspirin Plavix - Levothyroxine - Continue metoprolol to tartrate - Continue Lasix 40 daily. - EKG shows A-fib with slow ventricular response, - Check TSH hemoglobin A1c ? Orthopedic surgery consulted. ? N.p.o. at midnight for anticipated hip fracture repair in AM. ? Continue aspirin Plavix for now. Will discuss with cardiology. ?If okayed by cardiology will hold aspirin and Plavix prior to surgery. ? N.p.o. at midnight in anticipation of possible procedure in a.m. ? Patient requiring 2 L nasal cannula at this time. Seems to be slightly fluid overloaded. Will order Lasix 40 IV x 1. ? Patient will need to be fluid optimized prior to surgery. ? Will await recommendation from cardiology. Full code DVT prophylaxis: Heparin subcu twice daily 03/30/2025 Echocardiogram resulted. EF now worsened compared to prior EF 15 to 20%. Will await recommendations from cardiology If okayed by cardiology will hold aspirin and Plavix and intubated of surgery. BNP 7575. Patient status post Lasix 40 IV x 1 overnight. Patient will need to be fluid optimized prior to surgery. TSH 6.35. Will check free T4 Hemoglobin A1c 6.0. Continue levothyroxine 100 daily Metoprolol tartrate 25 daily Continue amiodarone Orthopedic surgery consulted appreciate recommendations. 03/31/2025 Echocardiogram resulted. EF now worsened compared to prior EF 15 to 20%. Continue lasix 60 oral daily hba1c 6.0 levothyroxine 100 daily lopressor 25 daily continue amiodarone hold asp, plavix plan for right hip hemiarthroplasty in am check chest xray today: possible infiltrates b/l, will cover with zosyn empirically PDMP PDMP Reviewed: Not Reviewed Attestations 2 Medical Necessity Statement*: right hip surgery in Am Diagnoses Hypertension I10 Benign essential hypertension with target blood pressure below 140/90 I10 Afib I48.91 AICD (automatic cardioverter/defibrillator) present Z95.810 Hypothyroid E03.9 Coronary artery disease I25.10
[2025-04-01] VITALS (18 sets, daily range): BP systolic 105–133; BP diastolic 60–94; PULSE 74–99; RESP 14–18; TEMP 36.4–37.7; O2SAT 92–98
[2025-04-01] MEDS: piperacillin-tazobactam 3.375 GM in sodium chloride 0.9% (plus) 50 ML IV ×3 (00:24→17:13)
[2025-04-01 04:20] LABS: Hematocrit 37.2 % (36-47); Hemoglobin 11.20 g/dL (11.27-16.99); Mean Corpuscular HGB Conc 30.1 g/dL (30-55); Mean Corpuscular Hemoglobin 26.8 pg (27-33); Mean Corpuscular Volume 89.0 fl (85-98); Nucleated Red Blood Cells % 0 %; Platelet Count 200 10^3/cmm (157-399); Red Blood Count 4.18 10^6/uL (3.85-5.65); White Blood Count 7.07 10^3/uL (3.29-11.43)
[2025-04-01 04:41] LABS: Anion Gap 11.6 (5-19); Blood Urea Nitrogen 19 mg/dL (8-23); Calcium 8.7 mg/dL (8.5-10.5); Carbon Dioxide 31 mmol/L (22-29); Chloride 96 mmol/L (98-107); Creatinine Clr Calc Pharmacy 46.7302; Glucose 108 mg/dL (65-115); Magnesium 2.0 mg/dL (1.7-2.3); Osmolality Calculated 283 mOsm/kg (285-295); Potassium 3.6 mmol/L (3.5-5.1); Sodium 135 mmol/L (136-145)
[2025-04-01] MEDS: acetaminophen 1,000 MG/100 ML PIGGYBACK 400 MG IV (07:41)
--- NOTE | 2025-04-01 07:56 | W.PM.OPSUD ---
Surgery/Procedure H&P Update DATE OF PROCEDURE: April 01, 2025 DATE H&P PERFORMED: 03/29/25 H&P UPDATE INFORMATION: I have reviewed H&P completed within last 30 days, I have examined patient prior to procedure and No changes to prior documentation CHANGES TO PREVIOUS DOCUMENTATION: Plan to proceed to the OR today for right hip hemiarthroplasty PREOP DIAGNOSIS: Right hip displaced femoral neck fracture PRIMARY INDICATION FOR PROCEDURE: Right hip displaced femoral neck fracture PLANNED PROCEDURE: Operation Date: 03/31/25 08:00 Proposed Procedures p Hemiarthroplasty Hip(Right) - Collin Mccrary DO Operation Date: 04/01/25 08:30 Proposed Procedures p Hemiarthroplasty Hip(Right) - Collin Mccrary DO
[2025-04-01] MEDS: tranexamic acid 1,000 mg/10mL SDV 1000 MG XX (08:54)
--- NOTE | 2025-04-01 10:00 | PC.NURSE ---
Patient went to surgery before shift change took place.
--- NOTE | 2025-04-01 10:08 | XRR_ITS ---
PROCEDURE INFORMATION: Exam: XR Right Hip Exam date and time: 04/01/2025 10:19 AM Age: 79 years old Clinical indication: Screening exam; Prior surgery; Surgery date: Post-operative (0-2 days); Surgery type: Post op RT hemiarthroplasty TECHNIQUE: Imaging protocol: Radiologic exam of the right hip. Views: 1 view hip with pelvis when performed. COMPARISON: CT hip RT wo con* [id number] 03/29/2025 04:30 PM FINDINGS: Bones/joints: Postop right hip prosthesis with satisfactory alignment. No acute fracture. Soft tissues: Right lateral skin kathleen. Air within the right lateral soft tissues, consistent recent surgical intervention. Vasculature: Atherosclerotic vascular disease. XR/XR hip RT 2-3V wo/w pel* [id number] IMPRESSION: Postop right hip prosthesis with satisfactory alignment.
--- NOTE | 2025-04-01 10:30 | W.PM.BPON ---
Date of Procedure: 04/01/2025 Surgeon: Collin Mccrary DO Director Account Management(s): Joseph Mccrary PA-C Procedure(s) performed: Right hip hemiarthroplasty Findings of the procedure(s): Patient underwent procedure as planned without issues or complications Estimated blood loss: 50 mL Specimen(s) removed: Femoral head removed Post-operative diagnosis: Right hip displaced femoral neck fracture
--- NOTE | 2025-04-01 10:37 | PM.OP ---
Operative Report Date of procedure: April 01, 2025 Surgeon: Collin Mccrary DO Senior Group Manager: Joseph Mccrary PA-C: PA was necessary for assistance in this case with leg positioning retraction and protection of neurovascular structures, assistance with hip reductions, as well as assistance in implantation wound closure and dressing application. Procedure: Preoperative diagnosis Right displaced femoral neck fracture Post-op diagnosis: Same Procedure done: Right?hip?hemiarthroplasty Implants: [place] insignia hip stem size 6?standard offset Bipolar head 45 mm Femoral head -4mm Surgeon: Collin Mccrary DO Estimated blood loss: 50 mL IV fluids: 800mL Urine output: 200mL Complications: None Findings: See operative report Condition: stable Disposition: floor Brief History: Patient was seen in the emergency department and subsequently admitted after fall.? Patient sustained a right displaced femoral neck fracture.? Patient was subsequently admitted by the hospitalist team for medical management and preoperative clearance and optimization and the orthopedic surgery team was consulted for evaluation and treatment recommendations.? At that point time discussed with patient? treatment options.? We talked about nonoperative versus operative intervention talked about the risk benefits complication alternatives to surgical nonsurgical treatment options.? Risks of surgery were discussed and she understands and agrees to proceed with procedure.? At this point time would recommend a right?hip?hemiarthroplasty.? This will offer patient pain control as well as early weightbearing.? Patient was medically optimized and by the primary team and cardiology, she was then taken to the OR.? Patient understands risk benefits complication alternatives with surgical nonsurgical treatment options.? At this point time elects to proceed with right?hip?hemiarthroplasty.? Given discussion of her significantly severely low EF of roughly 10 to 15% will read about prolonged anesthesia as well as cementation. Possible effects of the cement and its delayed intervention patient during cementation process ultimately planning for press-fit fixation as well as Jurgen which accommodation this. All questions answered.? Patient understands agrees with current plan.? All questions answered. Procedure: Patient seen evaluated the preoperative holding area.? Consent was reviewed and signed with patient.? ?Pt was seen evaluated by the anesthesia department.? Once cleared for surgery patient patient was taken back to the operative suite.? Patient was then transported onto the OR table.? pt underwent anesthesia per the anesthesia department.? Once appropriately anesthetized patient was then positioned in lateral decubitus position with the right?hip?up.? Patient was placed on a pegboard appropriately secured to the bed all bony prominences well-padded.? Next the right lower extremity was then prepped and draped in sterile orthopedic fashion.? Final timeout performed.? Patient received appropriate preoperative antibiotics. A standard posterolateral approach was then made over the lateral aspect of the?hip.? Sharp scalpel incision was made through skin and subcutaneous tissue I then utilized a Caro elevator to mobilize over the fascia.? The fascia was then split longitudinally with electrocautery.? Next a bursectomy was then performed.? I then placed Hohmann underneath the abductors.? The?hip?was placed under tension with internal rotation.? I then utilizing electrocautery performed a full-thickness release of the short external rotators and capsule in 1 full thick sleeve for lateral repair.? This was then taken down to the lesser trochanter.? Immediately on capsulotomy hematoma was noticed and displaced femoral neck fracture appreciated.? I then placed a Hohmann above and below the neck.? I then utilized an oscillating saw to freshen the cut this was roughly a fingerbreadth above the lesser.? Once this was performed this access was removed with rongeur.? ?I then utilized a corkscrew to remove the head.? This was then subsequently sized and measured to be a 45 mm head size.? I then thoroughly irrigated the acetabulum.? A Hohmann was placed anteriorly and thorough inspection of the acetabulum no significant arthritic changes were noted.? I then utilized a rongeur and Bovie to remove the pulvinar.? Once this was performed I then subsequently took my trial 45 mm head and trialed this which had excellent fit and appropriate suction fit noted.? This was then subsequently removed. Once this was performed I irrigated the socket and then turned my attention towards the femoral preparation.? I utilized Bovie and rongeur to remove the soft tissue off of the saddle.? Once this was done a box osteotome followed by a canal finder and? lateralizing rattail rasp was used to appropriately lateralized in the canal.? Next I then subsequently broached to a size 6 Joel insignia standard offset. We this had excellent rotational stability and fixation patient had accommodating bone quality for press-fit fixation with remaining stable before in order for healing patient's anesthesia limited as well as effects of medication with press-fit fixation. At this point in time I placed a -4 mm neck length. This was then subsequently placed and the hip was reduced. Leg lengths were symmetrical patient had excellent stability in all planes of range of motion also had appropriate shuck. This point in time the satisfied with these implants. At this point in time we then subsequently dislocated the hip atraumatically and then subsequently removed the trial prosthesis that gaultherin fibrotendinous. We then utilized the Joel insignia standard offset size 6 hip stem which was then impacted in place with appropriate anteversion as the trial. Went down to the same level. At this point in time we once again trialed and confirmed appropriate leg lengths and stability and selected the -4 mm neck option, this trial which at that point there was which had excellent leg lengths as well as appropriate shuck, and excellent stability in all planes of motion with no evidence of instability.? At this point this was determined to being my final femoral head size.? This was subsequently dislocated the trial head was then removed the final implant of bipolar head 45 mm with a -4mm offset was then opened.? The trunnion was then cleaned and dried and this was impacted in place with excellent fixation.? I then reduced the?hip?this had excellent stability and appropriate leg lengths.? The wound bed was then thoroughly irrigated.? I then utilizing #5 Ethibond suture performed my repair of the capsule and short external rotators through bone tunnels.? ?Wound bed was then thoroughly irrigated,1 gram vanco powder placed in wound bed.? IT band was closed with strata fix suture and the deep subcutaneous and subcutaneous layers were closed with 0 strata fix and 2-0 strata fix.? Skin was then closed reapproximated with kathleen.? Silverlon dressing applied.? Patient placed in abduction pillow posterior?hip?precautions.? pt? was awakened from anesthesia and taken to PACU in stable condition Disposition: Patient taken to PACU in stable condition will receive appropriate discharge directions as well as pain medication DVT prophylaxis postoperatively.? Patient? will return to the floor postoperatively.? Patient will be weightbearing as tolerated to the right lower extremity.? Posterior?hip?precautions. Abduction pillow in place.? DVT prophylaxis, pain medication, postoperative antibiotics and TXA.? Patient will work with PT/OT and discharge services for discharge planning.? Patient understands agrees with current plan.? All questions answered.? ?patient will? see me in the office in 2 weeks.
--- NOTE | 2025-04-01 10:40 | PM.PACU ---
PACU note Narrative: Patient is an 79-year-old female who just had a right hip hemiarthroplasty. Pt transferred to PACU in stable condition. Dressing is dry. pt is awake and alert. pt can wiggle toes and plantarflex and dorsiflex foot. Distal pulses are palpable toes are warm and well-perfused. Cap refill is normal and under 2 seconds. Sensation to foot is intact. Pain is controlled. Exam: awake Disposition: discharged
--- NOTE | 2025-04-01 11:43 | ANE.PACU2 ---
Inpatient post-anesthesia follow up: Airway intact: Yes Vital signs: Temperature 98 F Pulse Rate 74 Respiratory Rate 16 Blood Pressure 118/62 Pulse Oximetry 98 Oxygen Delivery Me thod Nasal Cannula Oxygen Flow Rate 2 Fraction of Inspir ed Oxygen Hydration adequate: Yes Nausea and vomiting: No Pain level: 1 Mental status: Baseline
--- NOTE | 2025-04-01 11:44 | PM.PACU ---
PACU note Narrative: Patient is 79-year-old female just underwent a right hip ORIF. Pt transferred to PACU in stable condition. Dressing is dry. pt is awake and alert. pt can wiggle toes and plantarflex and dorsiflex foot. pt able to perform straight leg raise, Femoral nerve intact. Distal pulses are palpable toes are warm and well-perfused. Cap refill is normal and under 2 seconds. Sensation to foot is intact. Pain is controlled. Exam: awake Disposition: back to floor
--- NOTE | 2025-04-01 12:42 | P.PN_ITS ---
Subjective 2 Subjective: seen post-op family at bedside pt denies pain at this time Vitals/I&O/Wt Last Vital Signs Temp 97.7 F 04/01/25 10:45 Pulse 99 04/01/25 11:45 Resp 16 04/01/25 11:23 BP 117/68 04/01/25 11:45 Pulse Ox 95 04/01/25 11:45 O2 Del Method Nasal Cannula 04/01/25 11:45 O2 Flow Rate 2 04/01/25 11:45 03/31/25 04/01/25 04/01/25 22:59 06:59 14:59 Intake Total 490 / 850 50 / 900 250 / 250 Output Total 750 / 750 1000 / 1750 250 / 250 Balance -260 / 100 -950 / -850 0 / 0 Weight last 48 hrs Weight 65.453 kg Weight 62.959 kg Physical Exam 2 Const: COMMON NORMALS: no acute distress and alert Resp: COMMON NORMALS: normal respiratory effort and No retractions (To auscultation bilaterally no wheezes conchae) Cardio: COMMON NORMALS: Peripheral pulses 2+ throughout PERIPHERAL PULSES: Peripheral pulses 2+ throughout Extremity: NARRATIVE EXTREMITY EXAM: (Right) lower extremity-leg surgical ba ndage in place along with ice pack Neuro: SENSORIUM/ORIENTATION: Yes alert Skin: GENERAL SKIN EXAM: dry skin Urinary Catheter Management: Archer: Cath Placed During This Visit: yes Reason for Continuing Indwelling Catheter: Required Immobilization for Trauma or Surgery or Anesthesia Urinary Catheter Date of Insertion: 03/29/25 Data 04/01/25 03:22 04/01/25 03:22 A&P Assessment and plan 1. Hypertension: 2. Benign essential hypertension with target blood pressure below 140/90: 3. Afib: 4. AICD (automatic cardioverter/defibrillator) present: 5. Hypothyroid: 6. Coronary artery disease: Plan: #Hip fracture #Atrial fibrillation #History of coronary disease # Acute on systolic congestive heart failure #Hypertension ? AICD in place ? Consult cardiology for cardiac clearance - Last known EF 20 to 25%. ? Check echocardiogram ? Patient denies chest pain shortness of breath at this time ? Continue aspirin Plavix - Levothyroxine - Continue metoprolol to tartrate - Continue Lasix 40 daily. - EKG shows A-fib with slow ventricular response, - Check TSH hemoglobin A1c ? Orthopedic surgery consulted. ? N.p.o. at midnight for anticipated hip fracture repair in AM. ? Continue aspirin Plavix for now. Will discuss with cardiology. ?If okayed by cardiology will hold aspirin and Plavix prior to surgery. ? N.p.o. at midnight in anticipation of possible procedure in a.m. ? Patient requiring 2 L nasal cannula at this time. Seems to be slightly fluid overloaded. Will order Lasix 40 IV x 1. ? Patient will need to be fluid optimized prior to surgery. ? Will await recommendation from cardiology. Full code DVT prophylaxis: Heparin subcu twice daily 03/30/2025 Echocardiogram resulted. EF now worsened compared to prior EF 15 to 20%. Will await recommendations from cardiology If okayed by cardiology will hold aspirin and Plavix and intubated of surgery. BNP 7575. Patient status post Lasix 40 IV x 1 overnight. Patient will need to be fluid optimized prior to surgery. TSH 6.35. Will check free T4 Hemoglobin A1c 6.0. Continue levothyroxine 100 daily Metoprolol tartrate 25 daily Continue amiodarone Orthopedic surgery consulted appreciate recommendations. 03/31/2025 Echocardiogram resulted. EF now worsened compared to prior EF 15 to 20%. Continue lasix 60 oral daily hba1c 6.0 levothyroxine 100 daily lopressor 25 daily continue amiodarone hold asp, plavix plan for right hip hemiarthroplasty in am check chest xray today: possible infiltrates b/l, will cover with zosyn empirically 04/01/2025 may restart aspirin/plavix if ok with ortho pt immediately post op- continue home meds BP stable, continue losartan and levothyroxine IS, acapella today post op ortho care per ortho PT/OT PDMP PDMP Reviewed: Not Reviewed Attestations 2 Medical Necessity Statement*: opst-op ortho care, Diagnoses Hypertension I10 Benign essential hypertension with target blood pressure below 140/90 I10 Afib I48.91 AICD (automatic cardioverter/defibrillator) present Z95.810 Hypothyroid E03.9 Coronary artery disease I25.10
[2025-04-01] MEDS: chlorhexidine gluconate 0.12% Btl 473 mL 30 ML MUCOUS MEM ×3 (14:00→20:35)
[2025-04-01 14:29] LABS: Hematocrit 36.7 % (36-47); Hemoglobin 11.00 g/dL (11.27-16.99); Mean Corpuscular HGB Conc 30.0 g/dL (30-55); Mean Corpuscular Hemoglobin 27.2 pg (27-33); Mean Corpuscular Volume 90.8 fl (85-98); Nucleated Red Blood Cells % 0 %; Platelet Count 212 10^3/cmm (157-399); Red Blood Count 4.04 10^6/uL (3.85-5.65); White Blood Count 7.66 10^3/uL (3.29-11.43)
[2025-04-01 14:55] LABS: Anion Gap 15.8 (5-19); Blood Urea Nitrogen 19 mg/dL (8-23); Calcium 8.4 mg/dL (8.5-10.5); Carbon Dioxide 27 mmol/L (22-29); Chloride 96 mmol/L (98-107); Creatinine Clr Calc Pharmacy 46.7302; Glucose 208 mg/dL (65-115); Osmolality Calculated 288 mOsm/kg (285-295); Potassium 3.8 mmol/L (3.5-5.1); Sodium 135 mmol/L (136-145)
[2025-04-01] MEDS: heparin 5,000 unit/mL INJ 1 mL 5000 UNIT SUBCUT (17:15)
[2025-04-01] MEDS: sennosides-docusate Tablet 2 TAB PO (17:17)
[2025-04-01] MEDS: tranexamic acid 1,000 MG/100 ML PREMIX 600 MG IV (17:17)
[2025-04-01] MEDS: calcium carb-vit d 600mg/400unit 1 Tablet 1 EACH PO (17:17)
[2025-04-01] MEDS: mupirocin oint 22 gm 1 APPLIC NASAL (17:23)
[2025-04-02] VITALS (9 sets, daily range): BP systolic 94–125; BP diastolic 54–83; PULSE 64–100; RESP 14–18; TEMP 36.7–37.1; O2SAT 92–99
[2025-04-02] MEDS: piperacillin-tazobactam 3.375 GM in sodium chloride 0.9% (plus) 50 ML IV ×3 (00:57→19:09)
[2025-04-02 03:49] LABS: Hematocrit 34.7 % (36-47); Hemoglobin 10.70 g/dL (11.27-16.99); Mean Corpuscular HGB Conc 30.8 g/dL (30-55); Mean Corpuscular Hemoglobin 27.5 pg (27-33); Mean Corpuscular Volume 89.2 fl (85-98); Nucleated Red Blood Cells % 0 %; Platelet Count 214 10^3/cmm (157-399); Red Blood Count 3.89 10^6/uL (3.85-5.65); White Blood Count 9.29 10^3/uL (3.29-11.43)
[2025-04-02 04:09] LABS: Anion Gap 12.1 (5-19); Blood Urea Nitrogen 21 mg/dL (8-23); Calcium 8.3 mg/dL (8.5-10.5); Carbon Dioxide 31 mmol/L (22-29); Chloride 100 mmol/L (98-107); Glucose 124 mg/dL (65-115); Osmolality Calculated 292 mOsm/kg (285-295); Potassium 4.1 mmol/L (3.5-5.1); Sodium 139 mmol/L (136-145)
[2025-04-02 04:14] LABS: Creatinine Clr Calc Pharmacy 42.0572
[2025-04-02] MEDS: heparin 5,000 unit/mL INJ 1 mL 5000 UNIT SUBCUT (05:08)
[2025-04-02] MEDS: polyethylene glycol 3350 Pkt 17 gm PO (05:08)
[2025-04-02] MEDS: sennosides-docusate Tablet 2 TAB PO ×2 (09:23→19:10)
[2025-04-02] MEDS: multivitamin therapeutic Tablet 1 TAB PO (09:23)
[2025-04-02] MEDS: calcium carb-vit d 600mg/400unit 1 Tablet 1 EACH PO ×2 (09:23→19:10)
[2025-04-02] MEDS: mupirocin oint 22 gm 1 APPLIC NASAL ×2 (09:25→19:11)
[2025-04-02] MEDS: HYDROcodone-acetaminophen 5-325 mg Tablet 1 TAB PO ×2 (09:25→22:33)
--- NOTE | 2025-04-02 10:18 | P.PN_ITS ---
<Statement entered by Darci Ruiz M.D - 04/05/25 11:49> Patient was cared for in conjunction with an advanced practice practitioner.? I reviewed the chart and all pertinent data including imaging, telemetry, and laboratory results.? I discussed the patient in detail with the advanced practice practitioner.? Please see their note for complete progress note, testing results and agreed upon plan of care for the patient. Subjective 2 Subjective: She appears to be recovering well. No chest pain, shortness of breath, orthopnea. Vitals/I&O/Wt Last Vital Signs Temp 98.2 F 04/02/25 08:07 Pulse 87 04/02/25 08:07 Resp 16 04/02/25 08:15 BP 94/57 04/02/25 08:07 Pulse Ox 98 04/02/25 08:15 O2 Del Method Nasal Cannula 04/02/25 08:15 O2 Flow Rate 2 04/02/25 08:15 04/01/25 04/02/25 04/02/25 22:59 06:59 14:59 Intake Total 390 / 1050 50 / 1050 Output Total 600 / 850 Balance 390 / 200 -550 / 200 Weight last 48 hrs Weight 148 lb 8 oz Weight 144 lb 4.8 oz Physical Exam 2 Const: COMMON NORMALS: no acute distress and patient oriented x3 Chest: COMMONS NORMALS: normal inspection of the chest and normal palpation of entire chest wall CHEST: Yes Symmetrical chest wall rise Resp: COMMON NORMALS: normal respiratory effort, No retractions, No use of accessory muscles and clear to auscultation bilaterally EFFORT & INSPECTION: Yes symmetric chest movement AUSCULTATION: clear to auscultation bilaterally Cardio: COMMON NORMALS: S1 normal heart sound present, S2 normal heart sound present, No gallops present (Cardio), No clicks present (Cardio), No murmurs present (Cardio) and No rub (Cardio) RHYTHM: abnormal rhythm irregularly irregular HEART SOUNDS: S1 normal heart sound present and S2 normal heart sound present PERIPHERAL PULSES: radial pulses present, posterior tibial pulses present and dorsalis pedis present Neuro: COMMON NORMALS: patient oriented x3 and moves all extremities Psych: COMMON NORMALS: mental status grossly normal and cooperative Urinary Catheter Management: Archer: Cath Placed During This Visit: yes Reason for Continuing Indwelling Catheter: Required Immobilization for Trauma or Surgery or Anesthesia Urinary Catheter Date of Insertion: 03/29/25 Data 04/02/25 02:49 04/02/25 02:49 A&P Assessment and plan 1. Chronic episodic atrial fibrillation: 2. Chronic systolic (congestive) heart failure: 3. AICD (automatic cardioverter/defibrillator) present: 4. Coronary artery disease: 5. Primary hypertension: Plan: She appears euvolemic, asymptomatic. Continue aspirin, Plavix, amiodarone, lasix. PDMP PDMP Reviewed: Not Reviewed Attestations 2 Medical Necessity Statement*: per surgery and hospitalist Coding Level of Care Code Acute Code for g Fwd Diagnoses Chronic episodic atrial fibrillation I48.20 Chronic systolic (congestive) heart failure I50.22 AICD (automatic cardioverter/defibrillator) present Z95.810 Coronary artery disease I25.10 Primary hypertension I10 Hypertension type: primary hypertension
[2025-04-02] MEDS: chlorhexidine gluconate 0.12% Btl 473 mL 30 ML MUCOUS MEM ×4 (10:39→20:49)
--- NOTE | 2025-04-02 16:30 | PM.PN ---
Subjective Subjective: 79-year-old female underwent right hip hemiarthroplasty following mechanical fall and displaced femoral neck fracture. Patient is on aspirin, Plavix and DVT prophylaxis with Lovenox. She has known atrial fibrillation and is and is on amiodarone. I spoke with Manuela Street who thinks patient had declined full anticoagulation in the past. Patient has history of AICD as well as proximal and mid LAD stents with patent left main, circumflex and right coronary artery. Patient has aneurysmal dilation of the LV apex and a EF of 15 to 20% with severely increased right atrial size and left atrial size. Reading Dr. Angelo's note from 03/30/2025 patient may not have been able to tolerate anticoagulation in the past. Postoperatively patient hematocrit has been stable and she has done well. She has been up to the door and back. She still has her Archer cath and reports some problem with constipation having only small poops since surgery Medications: Medication Review Details: Current Medications Acetaminophen (Acetaminophen 325 Mg Tablet) 650 mg PO Q6H PRN PRN Reason: Mild/Mod Pain Or Temp >/= 101 Hydrocodone Bitart/Acetaminophen (Hydrocodone-Acetaminophen 5-325 Mg Tablet) 1 tab PO Q6H PRN PRN Reason: MODERATE PAIN Last Admin: 03/30/25 13:13 Dose: 1 tab Albuterol Sulfate (Albuterol 2.5 Mg/3 Ml Neb) 2.5 mg INHALATION Q4H PRN PRN Reason: shortness of breath or wheezing Albuterol Sulfate (Albuterol 2.5 Mg/3 Ml Neb) 2.5 mg INHALATION Q4H.RESPIRATORY PRN PRN Reason: SHORTNESS OF BREATH Amiodarone HCl (Amiodarone 200 Mg Tablet) 200 mg PO DAILY [facility] Last Admin: 03/30/25 11:08 Dose: 200 mg Aspirin (Aspirin 325 Mg Tablet) 325 mg PO DAILY [facility] On Hold: 03/30/25 12:39 Resume: 04/03/25 09:00 Last Admin: 03/30/25 11:07 Dose: 325 mg Clopidogrel Bisulfate (Clopidogrel 75 Mg Tablet) 75 mg PO DAILY [facility] On Hold: 03/30/25 12:39 Resume: 04/03/25 09:00 Last Admin: 03/30/25 11:07 Dose: 75 mg Furosemide (Furosemide 40 Mg Tablet) 60 mg PO DAILY [facility] Last Admin: 03/30/25 11:07 Dose: 60 mg Heparin Sodium (Porcine) (Heparin 5,000 Unit/Ml Inj 1 Ml) 5,000 unit SUBCUT Q12H [facility] Last Admin: 03/30/25 05:41 Dose: Not Given Levothyroxine Sodium (Levothyroxine 100 Mcg Tablet) 100 mcg PO DAILY [facility] Last Admin: 03/30/25 11:08 Dose: 100 mcg Metoprolol Tartrate (Metoprolol Tartrate 25 Mg Tablet) 25 mg PO DAILY PRN PRN Reason: PALPITATIONS Morphine Sulfate (Morphine 4 Mg/Ml Sdv 1 Ml) 1 mg IVP Q6H PRN PRN Reason: SEVERE PAIN Ondansetron HCl (Ondansetron 2 Mg/Ml Sdv 2 Ml) 4 mg IVP Q8H PRN PRN Reason: vomiting, or N/V if npo Pantoprazole Sodium (Pantoprazole Dr 40 Mg Tablet) 40 mg PO DAILY [facility] Last Admin: 03/30/25 11:08 Dose: 40 mg Polyethylene Glycol (Polyethylene Glycol 3350 Pkt 17 Gm) 17 gm PO QAM [facility] Last Admin: 03/30/25 05:41 Dose: Not Given Vitals/I&O/Wt Last Vital Signs Temp 98.0 F 04/02/25 11:00 Pulse 87 04/02/25 11:00 Resp 16 04/02/25 11:00 BP 96/54 04/02/25 11:00 Pulse Ox 98 04/02/25 11:00 O2 Del Method Nasal Cannula 04/02/25 11:00 O2 Flow Rate 2 04/02/25 11:00 04/02/25 04/02/25 04/02/25 06:59 14:59 22:59 Intake Total 50 / 1050 358 / 358 Output Total 600 / 850 Balance -550 / 200 358 / 358 Weight last 48 hrs Weight 67.358 kg Weight 65.453 kg Physical Exam Narrative: General well-developed well-nourished female in no acute cardiopulmonary distress CV irregular rhythm with controlled rate Lungs clear to auscultation bilaterally Abdomen positive bowel tones soft Calves no tenderness cords pretibial edema there is mild swelling and edema in the right hip but this is mild and no bleeding or bruising seen Urinary Catheter Management: Archer: Cath Placed During This Visit: yes Reason for Continuing Indwelling Catheter: Required Immobilization for Trauma or Surgery or Anesthesia Urinary Catheter Date of Insertion: 03/29/25 Data 04/02/25 02:49 04/02/25 02:49 A&P Assessment and plan 1. Fracture of right hip requiring operative repair: Patient is on Lovenox prophylactic dose at 30 mg daily plus Plavix and aspirin and doing well from standpoint of not having bleeding or drop in hematocrit 2. Afib: This combined with ischemic cardiomyopathy patient is at high risk of stroke and I favor anticoagulation. Manuela said she will revisit with patient question of anticoagulation 3. Ischemic cardiomyopathy: See above continue with diuretics patient appears to be volume controlled currently. Patient reports some dizziness when standing too quickly but is doing okay without new symptoms TSH is 6.35 and A1c 6.0 4. Coronary artery disease: Continue aspirin Plavix for now and potentially Plavix plus Eliquis or similar regimen for coronary artery disease and ischemic cardiomyopathy 5. Benign essential hypertension with target blood pressure below 140/90: Stable blood pressure is actually too low without any medications 6. AICD (automatic cardioverter/defibrillator) present: Stable prophylactic defibrillator due to ischemic cardiomyopathy with EF 15 to 20% 7. Hypothyroid: TSH 6.35. Free T4 stable at 1.87 will leave levothyroxine on her micrograms daily Plan: Full code DVT prophylaxis: Heparin subcu twice daily PT/OT PDMP PDMP Reviewed: Not Reviewed Attestations Medical Necessity Statement*: Patient rom in hospital for physical therapy and [facility] Remove Archer. Anticipate 1-2 midnight Coding Level of Care Code 16765 Diagnoses Fracture of right hip requiring operative repair S72.001A Afib I48.91 Ischemic cardiomyopathy I25.5 Coronary artery disease I25.10 Benign essential hypertension with target blood pressure below 140/90 I10 AICD (automatic cardioverter/defibrillator) present Z95.810 Hypothyroid E03.9 Time Spent (min) 35
--- NOTE | 2025-04-02 18:02 | P.PN_ITS ---
Subjective 2 Subjective: Patient seen and examined recovering postop day 1 family at bedside. No acute issues overnight. Vitals/I&O/Wt Last Vital Signs Temp 98.3 F 04/02/25 16:00 Pulse 91 04/02/25 16:00 Resp 16 04/02/25 16:00 BP 105/66 04/02/25 16:00 Pulse Ox 99 04/02/25 16:00 O2 Del Method Nasal Cannula 04/02/25 16:00 O2 Flow Rate 2 04/02/25 16:00 04/02/25 04/02/25 04/02/25 06:59 14:59 22:59 Intake Total 50 / 1050 358 / 358 Output Total 600 / 850 Balance -550 / 200 358 / 358 Weight last 48 hrs Weight 148 lb 8 oz Weight 144 lb 4.8 oz Physical Exam 2 Narrative: Right hip examination: Dressing on in place, clean dry and intact. No evidence of saturation. Patient has normal postoperative swelling and tenderness to palpation to the hip. Compartments are soft compressible,'s calf soft and nontender. Sensations intact to light touch distally. Distal pulses are palpable. Patient is able to wiggle toes as well as plantarflex and dorsiflex ankle. Urinary Catheter Management: Archer: Cath Placed During This Visit: yes Reason for Continuing Indwelling Catheter: Required Immobilization for Trauma or Surgery or Anesthesia Urinary Catheter Date of Insertion: 03/29/25 Data 04/02/25 02:49 04/02/25 02:49 Xray Ortho: Radiologist's impression: Patient: Ilana Lau Unit #: [id number] : 1945 Age/Sex: 79 / F ADM Date: 03/29/25 Loc: [facility] Room/Bed: [facility] Attending Dr: Felicity Burgess MD Ordering Provider/Ordering MD: Collin Mccrary Date of Service: 04/01/25 Procedure(s): XR hip RT 2-3V wo/w pel* [id number] Accession Number(s): [id number] Report Number: [id number] PROCEDURE INFORMATION: Exam: XR Right Hip Exam date and time: 04/01/2025 10:19 AM Age: 79 years old Clinical indication: Screening exam; Prior surgery; Surgery date: Post-operative (0-2 days); Surgery type: Post op RT hemiarthroplasty TECHNIQUE: Imaging protocol: Radiologic exam of the right hip. Views: 1 view hip with pelvis when performed. COMPARISON: CT hip RT wo con* [id number] 03/29/2025 04:30 PM FINDINGS: Bones/joints: Postop right hip prosthesis with satisfactory alignment. No acute fracture. Soft tissues: Right lateral skin kathleen. Air within the right lateral soft tissues, consistent recent surgical intervention. Vasculature: Atherosclerotic vascular disease. XR/XR hip RT 2-3V wo/w pel* [id number] IMPRESSION: Postop right hip prosthesis with satisfactory alignment. A&P Assessment and plan 1. S/P hip hemiarthroplasty: Plan: Postop day 1 right hip hemiarthroplasty Weight-bear as tolerated right lower extremity X-rays reviewed Postop antibiotics Posterior hip precautions PT/OT Pain control DVT prophylaxis Internal medicine is primary Orthopedics will continue to follow Case management for discharge planning PDMP PDMP Reviewed: Not Reviewed Attestations 2 Medical Necessity Statement*: Per primary status post right hip hemiarthroplasty Coding Level of Care Code Acute Code for Chg Fwd Diagnoses S/P hip hemiarthroplasty Z96.649
[2025-04-03] VITALS: BP 101/63; PULSE 84; RESP 16; TEMP 36.8; O2SAT 99
[2025-04-03] MEDS: piperacillin-tazobactam 3.375 GM in sodium chloride 0.9% (plus) 50 ML IV ×2 (00:41→08:32)
[2025-04-03 04:00] VITALS: BP 140/76; PULSE 68; RESP 17; TEMP 36.7; O2SAT 97
[2025-04-03 05:34] LABS: Hematocrit 32.6 % (36-47); Hemoglobin 9.90 g/dL (11.27-16.99); Mean Corpuscular HGB Conc 30.4 g/dL (30-55); Mean Corpuscular Hemoglobin 27.7 pg (27-33); Mean Corpuscular Volume 91.1 fl (85-98); Nucleated Red Blood Cells % 0 %; Platelet Count 205 10^3/cmm (157-399); Red Blood Count 3.58 10^6/uL (3.85-5.65); White Blood Count 8.06 10^3/uL (3.29-11.43)
[2025-04-03 05:59] LABS: Anion Gap 14.1 (5-19); Blood Urea Nitrogen 28 mg/dL (8-23); Calcium 8.4 mg/dL (8.5-10.5); Carbon Dioxide 30 mmol/L (22-29); Chloride 99 mmol/L (98-107); Creatinine Clr Calc Pharmacy 42.7777; Glucose 98 mg/dL (65-115); Osmolality Calculated 293 mOsm/kg (285-295); Potassium 4.1 mmol/L (3.5-5.1); Sodium 139 mmol/L (136-145)
[2025-04-03 07:50] VITALS: PULSE 102; RESP 18; O2SAT 98
[2025-04-03 08:08] VITALS: BP 106/67; PULSE 80; RESP 17; TEMP 36.8; O2SAT 100
[2025-04-03] MEDS: calcium carb-vit d 600mg/400unit 1 Tablet 1 EACH PO (08:31)
[2025-04-03] MEDS: sennosides-docusate Tablet 2 TAB PO (08:32)
[2025-04-03] MEDS: multivitamin therapeutic Tablet 1 TAB PO (08:32)
[2025-04-03] MEDS: chlorhexidine gluconate 0.12% Btl 473 mL 30 ML MUCOUS MEM (08:33)
[2025-04-03] MEDS: mupirocin oint 22 gm 1 APPLIC NASAL (08:33)
[2025-04-03 11:41] VITALS: BP 111/67; PULSE 87; RESP 17; TEMP 36.6; O2SAT 96
--- NOTE | 2025-04-03 13:19 | P.PN_ITS ---
Subjective 2 Subjective: Patient seen and examined today no acute issues overnight planning on discharge today. Progressing with therapy. Vitals/I&O/Wt Last Vital Signs Temp 97.8 F 04/03/25 11:41 Pulse 87 04/03/25 11:41 Resp 17 04/03/25 11:41 BP 111/67 04/03/25 11:41 Pulse Ox 96 04/03/25 11:41 O2 Del Method Nasal Cannula 04/03/25 07:50 O2 Flow Rate 2 04/03/25 07:50 04/02/25 04/03/25 04/03/25 22:59 06:59 14:59 Intake Total 360 / 768 540 / 1308 240 / 240 Output Total 550 / 550 700 / 1250 Balance -190 / 218 -160 / 58 240 / 240 Weight last 48 hrs Weight 150 lb Weight 148 lb 8 oz Physical Exam 2 Narrative: Right hip examination: Dressing on in place, clean dry and intact. No evidence of saturation. Patient has normal postoperative swelling and tenderness to palpation to the hip. Compartments are soft compressible,'s calf soft and nontender. Sensations intact to light touch distally. Distal pulses are palpable. Patient is able to wiggle toes as well as plantarflex and dorsiflex ankle. Urinary Catheter Management: Archer: Cath Placed During This Visit: yes Reason for Continuing Indwelling Catheter: Required Immobilization for Trauma or Surgery or Anesthesia Urinary Catheter Date of Insertion: 03/29/25 Data 04/03/25 05:21 04/03/25 05:21 A&P Assessment and plan 1. S/P hip hemiarthroplasty: Plan: Postop day 2 right hip hemiarthroplasty Weight-bear as tolerated right lower extremity X-rays reviewed Postop antibiotics Posterior hip precautions PT/OT Pain control DVT prophylaxis Internal medicine is primary Orthopedics will continue to follow follow-up in the orthopedic office outpatient in 2 weeks Case management for discharge planning Orthopedic surgery team will sign off patient at this time follow peripherally for any questions pertaining patient care prefer to contact orthopedics on-call patient when appropriate discharge took some pain medication postoperatively. Follow-up in the orthopedic office in 2 weeks. PDMP PDMP Reviewed: Not Reviewed Attestations 2 Medical Necessity Statement*: Per primary Coding Level of Care Code Acute Code for Chg Fwd Diagnoses S/P hip hemiarthroplasty Z96.649
[2025-04-03] MEDS: HYDROcodone-acetaminophen 5-325 mg Tablet 1 TAB PO (15:37)
[2025-04-03 17:00] LABS: SARS Covid-2 Antigen Negative (Negative)
--- NOTE | 2025-04-06 11:55 | P.DS_ITS ---
Discharge Providers Date of Admission: 03/29/25 17:01 Date of Discharge: April 03, 2025 Attending Provider at Admission: Salomon Rodriguez MD Attending Provider at Discharge: Pj Park MD Primary Care Provider: Lisa Nunn DO Diagnoses at Discharge Discharge Diagnosis 1. Fracture of femoral neck, right, closed: Details from hospital stay: Right hip hemiarthroplasty on 04/01/2025 and did well postoperatively 2. Afib: Details from hospital stay: Patient at high risk for embolic CVA and so started on apixaban 2.5 mg twice a day after discussion about risks and benefits with the patient 3. AICD (automatic cardioverter/defibrillator) present: Details from hospital stay: As above was stable during this hospitalization and no AICD firing 4. Ischemic cardiomyopathy: Details from hospital stay: Stable did not have decompensation of congestive heart failure 5. Coronary artery disease: Details from hospital stay: History of stents so Plavix continued along with the apixaban and aspirin was stopped once apixaban was started Reason for Visit Reason for Visit: right hip pain - fall Brief History: Ilana Lau is a 79 year old female With past medical history of hypothyroidism, coronary disease, cardiogenic shock, just of heart failure, atrial fibrillation, shortness of breath, hypertension presented to the hospital today after a fall which was mechanical in nature. Patient fell next to her couch which was a mechanical fall. She tripped on something. Denies losing consciousness or lightheadedness prior to the fall. At this time patient resting comfortably in bed denies nausea vomiting diarrhea chest pain shortness of breath. Last known EF 20 to 25% in 2022. Last coronary angiogram in 2022. At that time which showed patent left anterior descending artery stent. Hospital Course Hospital Course 79-year-old female with had mechanical fall and right femoral neck fracture. Echo this admission showed EF 15 to 20%. She also had a pacer defibrillator seen on chest x-ray along with cardiomegaly and a small right pleural effusion. Patient was admitted on 03/29/2025 and had right hip hemiarthroplasty Joel insignia hip stem size 6 on April 01, 2025. She was seen by Dr. Angelo due to ischemic cardiomyopathy and cleared for surgery. Postoperatively she was on aspirin, Plavix and DVT prophylaxis with Lovenox. Sh e had no significant hematocrit drop and did quite well postoperatively given her age and ischemic cardiomyopathy. She was approved for group home facility and discharged to [facility] on 04/03/2025. I discussed anticoagulation with the patient as she had history of A-fib, ischemic cardiomyopathy and both of these put her at risk for A-fib related embolic stroke. This was discussed with the patient and her niece at bedside Physical Exam Narrative: General well-developed well-nourished female in no acute cardiopulmonary distress CV irregular rhythm with controlled rate Lungs clear to auscultation bilaterally Abdomen positive bowel tones soft Calves no tenderness cords pretibial edema there is mild swelling and edema in the right hip but this is mild and no bleeding or bruising seen Urinary Catheter Management: Archer: Cath Placed During This Visit: yes Reason for Continuing Indwelling Catheter: Required Immobilization for Trauma or Surgery or Anesthesia Urinary Catheter Date of Insertion: 03/29/25 Discharge Data Studies Completed and Pending Completed Studies During Hospitalization Category Date Time Status CT hip RT wo con* [id number] Stat Cat Scan 03/29/25 15:48 Completed XR chest 1V portable [id number] Routine Exams 03/31/25 09:58 Completed XR femur RT min 2V* [id number] Stat Exams 03/29/25 15:49 Completed XR hip RT 2-3V wo/w pel* [id number] Routine Exams 04/01/25 10:08 Completed XR hip RT 2-3V wo/w pel* [id number] Stat Exams 03/29/25 13:25 Completed XR knee RT 1-2V [id number] Stat Exams 03/29/25 15:49 Completed CV. echo complete* [id number] Stat Ultrasound 03/29/25 17:33 Completed Radiology Impressions Hip CT 03/29/25 15:48 IMPRESSION: Acute comminuted femoral neck fracture with varus angulation. Femur X-Ray 03/29/25 15:49 IMPRESSION: Similar femoral neck fracture. The remainder of the femur is unremarkable. Knee X-Ray 03/29/25 15:49 IMPRESSION: No acute findings. Chest X-Ray 03/31/25 09:58 IMPRESSION: There is some similar pleural fluid blunting the costophrenic angles along with some patchy atelectatic consolidation of the lung bases appears slightly progressed in the interval left more so than right suggestive of some early inflammation. Hip/Pelvis X-Ray 04/01/25 10:08 IMPRESSION: Postop right hip prosthesis with satisfactory alignment. Laboratory Results WBC 8.06 10^3/uL (3.29-11.43) 04/03/25 05:21 RBC 3.58 10^6/uL (3.85-5.65) L 04/03/25 05:21 Hgb 9.90 g/dL (11.27-16.99) L 04/03/25 05:21 Hct 32.6 % (36-47) L 04/03/25 05:21 MCV 91.1 fl (85-98) 04/03/25 05:21 MCH 27.7 pg (27-33) 04/03/25 05:21 MCHC 30.4 g/dL (30-55) 04/03/25 05:21 RDW 15.9 % (12.1-15.1) H 04/03/25 05:21 Plt Count 205 10^3/cmm (157-399) 04/03/25 05:21 MPV 9.7 fL (7.4-10.4) 04/03/25 05:21 Neut % (Auto) 74.9 % 04/03/25 05:21 Lymph % (Auto) 11.8 % 04/03/25 05:21 [place] % (Auto) 10.7 % 04/03/25 05:21 Eos % (Auto) 1.6 % 04/03/25 05:21 Baso % (Auto) 0.6 % 04/03/25 05:21 Neut # (Auto) 6.04 10^3/uL (1.8-7.7) 04/03/25 05:21 Lymph # (Auto) 1.0 10^3/uL (0.8-4.8) 04/03/25 05:21 [place] # (Auto) 0.9 10^3/uL (0.2-0.9) 04/03/25 05:21 Eos # (Auto) 0.1 10^3/uL (0.0-0.8) 04/03/25 05:21 Baso # (Auto) 0.1 10^3/uL (0.0-0.1) 04/03/25 05:21 Nucleated RBC % (auto) 0 % 04/03/25 05:21 Nucleated RBCs # 0.0 /100WBC 04/03/25 05:21 PT 15.20 SECONDS (12.1-14.9) H 03/29/25 12:42 INR 1.12 (0.8-1.2) 03/29/25 12:42 APTT 28.3 SECONDS (23.9-36.7) 03/29/25 12:42 Sodium 139 mmol/L (136-145) 04/03/25 05:21 Potassium 4.1 mmol/L (3.5-5.1) 04/03/25 05:21 Chloride 99 mmol/L (98-107) 04/03/25 05:21 Carbon Dioxide 30 mmol/L (22-29) H 04/03/25 05:21 Anion Gap 14.1 (5-19) 04/03/25 05:21 BUN 28 mg/dL (8-23) H 04/03/25 05:21 Creatinine 1.0 mg/dL (0.5-0.9) H 04/03/25 05:21 GFR Calculation Not Reportable 04/03/25 05:21 Glucose 98 mg/dL (65-115) 04/03/25 05:21 Estimat Average Glucose 126 03/29/25 12:42 Hemoglobin A1c 6.0 % (4.0-6.0) 03/29/25 12:42 Calculated Osmolality 293 mOsm/kg (285-295) 04/03/25 05:21 Calcium 8.4 mg/dL (8.5-10.5) L 04/03/25 05:21 Magnesium 2.0 mg/dL (1.7-2.3) 04/01/25 03:22 Total Bilirubin 1.3 mg/dL (0.15-1.2) H 03/31/25 04:50 AST 19 U/L (0-32) 03/31/25 04:50 ALT 12 U/L (0-33) 03/31/25 04:50 Alkaline Phosphatase 66 U/L (35-105) 03/31/25 04:50 NT-Pro-B Natriuret Pep 7575 pg/mL (0-450) H 03/29/25 12:42 Total Protein 6.3 g/dL (6.6-8.7) L 03/31/25 04:50 Albumin 3.3 g/dL (3.5-5.2) L 03/31/25 04:50 Globulin 3.0 g/dL (1.3-4.6) 03/31/25 04:50 TSH 6.35 uIU/mL (0.27-4.20) H 03/29/25 12:42 Free T4 1.87 ng/dL (0.82-1.77) H 03/30/25 05:13 Urine Color Yellow (Yellow) 03/29/25 16:18 Urine Appearance Clear (CLEAR) 03/29/25 16:18 Urine pH 5.5 (5-7) 03/29/25 16:18 Ur Specific [place] 1.010 (1.005-1.030) 03/29/25 16:18 Urine Protein Trace (Negative) A 03/29/25 16:18 Urine Glucose (UA) Negative (Normal) 03/29/25 16:18 Urine Ketones Negative (Negative) 03/29/25 16:18 Urine Blood Trace (Negative) A 03/29/25 16:18 Urine Nitrate Negative (Negative) 03/29/25 16:18 Urine Bilirubin Negative (Negative) 03/29/25 16:18 Urine Urobilinogen 1.0 mg/dL (Negative) 03/29/25 16:18 Ur Leukocyte Esterase Negative (Negative) 03/29/25 16:18 Urine RBC 0-2 /hpf (0-2) 03/29/25 16:18 Urine WBC 0-5 /hpf (0-5) 03/29/25 16:18 Ur Squamous Epith Cells 0-5 /hpf (0-5) 03/29/25 16:18 Amorphous Sediment Not Reportable 03/29/25 16:18 Urine Bacteria None seen /hpf (NONE) 03/29/25 16:18 Hyaline Casts 1.21 /lpf 03/29/25 16:18 SARS-CoV-2 Ag (Rapid) Negative (Negative) 04/03/25 15:38 Blood Type A Negative 03/30/25 14:01 Rho(D) Type Rh negative 03/30/25 14:01 Antibody Screen Negative 03/30/25 14:01 Vitals Last Vital Signs Temp 97.8 F 04/03/25 11:41 Pulse 87 04/03/25 11:41 Resp 17 04/03/25 11:41 BP 111/67 04/03/25 11:41 Pulse Ox 96 04/03/25 11:41 O2 Del Method Nasal Cannula 04/03/25 07:50 O2 Flow Rate 2 04/03/25 07:50 Discharge Plan Discharge Patient Disposition: Xfer SNF Condition: Stable Prescriptions: New acetaminophen 325 mg Tablet 650 mg PO Q6H PRN (Reason: Mild/Mod Pain Or Temp >/= 101) Qty: 60 0RF polysaccharide iron complex [Ferrex 150] 150 mg iron Capsule 150 mg PO BIDWM Qty: 60 0RF multivitamin with folic acid [Thera] 400 mcg Tablet 1 tab PO DAILY Qty: 100 0RF lactulose 10 gram/15 mL Solution 10 g PO DAILY PRN (Reason: Constipation) Qty: 300 0RF furosemide [Lasix] 40 mg tablet 40 mg PO QAM Qty: 30 0RF metoprolol succinate [Toprol XL] 25 mg tablet extended release 24 hr 25 mg PO DAILY Qty: 30 0RF apixaban 2.5 mg tablet 2.5 mg PO BID Qty: 60 0RF famotidine [Pepcid] 20 mg tablet 20 mg PO DAILY Qty: 30 0RF Continued mineral oil Oil 15 ml PO DAILY alprazolam 0.25 mg tablet 0.25 mg PO BEDTIME PRN (Reason: Sleep) Qty: 30 5RF clopidogrel 75 mg tablet See Rx Instructions .ROUTE .COMPLEX Qty: 90 3RF Dose Instruction: Take 1 tablet by mouth once daily Rx Instructions: Take 1 tablet by mouth once daily potassium chloride 10 mEq tablet extended release See Rx Instructions .ROUTE .COMPLEX Qty: 180 3RF Dose Instruction: TAKE 1 TABLET BY MOUTH TWICE DAILY WITH LASIX Rx Instructions: TAKE 1 TABLET BY MOUTH TWICE DAILY WITH LASIX amiodarone 200 mg tablet See Rx Instructions .ROUTE .COMPLEX Qty: 90 3RF Dose Instruction: Take 1 tablet by mouth once daily Rx Instructions: Take 1 tablet by mouth once daily levothyroxine 100 mcg tablet 100 mcg PO DAILY polyethylene glycol 3350 [Miralax] 17 gram powder in packet 17 g PO QAM albuterol sulfate 90 mcg/actuation HFA aerosol inhaler 2 inh INHALATION Q4H PRN (Reason: shortness of breath or wheezing) Qty: 18 0RF hydrocodone-acetaminophen 7.5-325 mg tablet 1 tab PO Q4H PRN (Reason: Pain) Discontinued aspirin 325 mg tablet 325 mg PO DAILY metoprolol tartrate 25 mg tablet See Rx Instructions .ROUTE .COMPLEX Qty: 30 3RF Dose Instruction: TAKE 1 TABLET BY MOUTH ONCE DAILY NEEDED FOR PALPITATIONS Rx Instructions: TAKE 1 TABLET BY MOUTH ONCE DAILY NEEDED FOR PALPITATIONS furosemide 40 mg tablet See Rx Instructions .ROUTE .COMPLEX Qty: 135 3RF Dose Instruction: TAKE 1 & 1/2 (ONE & ONE-HALF) TABLETS BY MOUTH IN THE MORNING FOR EDEMA Rx Instructions: TAKE 2 TABLETS BY MOUTH IN THE MORNING FOR EDEMA Status Controller OK for DC: Orthopedics Discharge Order = DC NOW: Discharge Order (Routine); Ordered 04/03/25 Ordered By: Pj Park Referrals: [facility] [Outside] Collin Mccrary DO [Physician, Orthopedics] - 04/17/25 10:00 am Lisa Nunn DO [Primary Care Provider, [facility]] Discharge Diet: Regular Discharge Activity: Limit activity as instructed Patient Instructions: Acute Wound Care (DC), Opioid Safety, Post Anesthesia Care, Patient Portal & Brandy Instructions Activity Restrictions/Additional Instructions: Orthopedic discharge instructions: Patient may weight-bear as tolerated to the operative lower extremity Posterior hip precautions (avoid excess excessive hip flexion past 90 degrees and internal rotation) Take DVT prophylaxis (blood thinner) as prescribed ) Take pain medication as prescribed Take antinausea medication as needed Supplement with Citracal vitamin D for bone health and healing Ice as needed for pain and swelling Leave Silverlon bandage dressing on for 7 days after that may remove, rinse incision with warm soapy water/shower pat dry keep clean dry and intact and redress with a clean dry dressing. No baths or soaks May supplement for pain with Tylenol [id number] as needed(1000 mg every 8 hours-do not exceed more than 3000mg in 24-hour period) Follow-up in the orthopedic office in 2 weeks from date of surgery Contact the office for any questions or concerns per (fevers, increased drainage or redness around the incision site etc.) Discharge Attestations Time Spent in Discharge Care*: greater than 30 min Time Spent in Smoking Cessation: Patient is not a smoker Status at Discharge: Cognitive status at discharge: cognitively intact , Behavioral status at discharge: cooperative , Quality Metrics Clinical Quality Measures [ No reported AMI, CVA or VTE this stay] Coding Level of Care Code 57914 Diagnoses Fracture of femoral neck, right, closed S72.001A Encounter type: initial encounter Afib I48.91 AICD (automatic cardioverter/defibrillator) present Z95.810 Ischemic cardiomyopathy I25.5 Coronary artery disease I25.10 Time Spent (min) 45
== END 2025-04-03 16:50 | disposition skilled nursing facility (03) | DRG 522 ==
LOC: ER 16:15 → ER IP 17:02 → MEDSURG 17:06
PROVIDERS: Internal Medicine; Physician Assistant; Student in an Organized Health Care Education/Training Program; Admitting Provider Student in an Organized Health Care Education/Training Program; Emergency Provider Physician Assistant; PCP Family Medicine; Visit Provider Internal Medicine
PROC: 0SRR0JZ Replacement of Right Hip Joint, Femoral Surface with Synthetic Substitute, Open Approach (ICD-10-PCS; principal; 2025-04-01 08:00)
DX: S72.001A Fracture of unspecified part of neck of right femur, initial encounter for closed fracture (principal); I48.20 Chronic atrial fibrillation, unspecified; I50.22 Chronic systolic (congestive) heart failure; W01.0XXA Fall on same level from slipping, tripping and stumbling without subsequent striking against object, initial encounter; S41.112A Laceration without foreign body of left upper arm, initial encounter; I25.5 Ischemic cardiomyopathy; I25.10 Atherosclerotic heart disease of native coronary artery without angina pectoris; E03.9 Hypothyroidism, unspecified; I11.0 Hypertensive heart disease with heart failure; J44.9 Chronic obstructive pulmonary disease, unspecified; E78.5 Hyperlipidemia, unspecified; Z96.651 Presence of right artificial knee joint; F03.90 Unspecified dementia, unspecified severity, without behavioral disturbance, psychotic disturbance, mood disturbance, and anxiety; K59.00 Constipation, unspecified; Z66 Do not resuscitate; I08.3 Combined rheumatic disorders of mitral, aortic and tricuspid valves; I27.20 Pulmonary hypertension, unspecified; Z79.02 Long term (current) use of antithrombotics/antiplatelets; Z79.891 Long term (current) use of opiate analgesic; Z87.891 Personal history of nicotine dependence; Z95.810 Presence of automatic (implantable) cardiac defibrillator; Z95.5 Presence of coronary angioplasty implant and graft
CPT/HCPCS: 36415; 51702; 71045; 73502; 73552; 73560; 73700; 80048; 80053; 81001; 83036; 83735; 83880; 84439; 84443; 85025; 85610; 85730; 86850; 86900; 87426; 93005; 93306; 94664; 96372; 96374; 97110; 97116; 97162; 97167; 97530; 97535; 99285; A4216; C1776; J0131; J1100; J1644; J1650; J1885; J1938; J2371; J2405; J2543; J2704; J3010; J3373; J3490; J9999; P9045

== ENCOUNTER 2025-04-13 11:18 | Outpatient (CLI) | payer OTHER, MEDICAID, SELFPAY ==
--- NOTE | 2025-04-13 11:35 | XR_ITS ---
WS: [id number] XR cervical spine 3V* [id number] REASON FOR EXAM: Cervical pain FINDINGS: Straightening of the normal lordosis of the cervical spine with mild anterior subluxation. No significant vertebral body compression deformity or focal lesion. Severe narrowing of the C3-C4 disc space possibly with partial autofusion. Moderate narrowing of the C4-C5 disc space with moderate anterior and posterior osteophytosis. 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 Moderate narrowing of the C6-C7 disc space with moderate endplate sclerosis and posterior and anterior osteophytosis. 2 to 3 mm of anterolisthesis of C4 on C5. XR/XR cervical spine 3V* [id number] IMPRESSION: Cervical degenerative spondylosis as above.
--- NOTE | 2025-04-13 11:36 | XR_ITS ---
WS: [id number] XR thoracic spine 2V [id number] REASON FOR EXAM: Mid-back pain FINDINGS: Relatively normal thoracic spine curvatures. No significant compression deformity or focal lesion of the thoracic vertebrae. Mild to moderate narrowing of the intervertebral disc spaces with moderate endplate sclerosis and osteophytosis in the midthoracic spine. XR/XR thoracic spine 2V [id number] IMPRESSION: Thoracic degenerative spondylosis as above.
== END 2025-04-13 11:19 | disposition home or self-care (01) ==
PROVIDERS: PCP Family Medicine; Visit Provider Family Medicine
DX: M47.814 Spondylosis without myelopathy or radiculopathy, thoracic region (principal); S19.9XXD Unspecified injury of neck, subsequent encounter; X58.XXXD Exposure to other specified factors, subsequent encounter; M47.812 Spondylosis without myelopathy or radiculopathy, cervical region; R29.3 Abnormal posture; S13.100A Subluxation of unspecified cervical vertebrae, initial encounter
CPT/HCPCS: 72040; 72070

== ENCOUNTER → 2025-04-17 09:55 | Outpatient (BNVA) | payer OTHER, MEDICAID, SELFPAY | PROVIDERS: PCP Family Medicine; Visit Provider Physician Assistant | DX: Z98.890 Other specified postprocedural states (principal); Z96.649 Presence of unspecified artificial hip joint | CPT/HCPCS: 73502; 99024 ==

== ENCOUNTER 2025-04-18 05:28 | Emergency (ER) | payer OTHER, MEDICAID, SELFPAY ==
--- OUTSIDE RECORDS SUMMARY | 2025-04-12 16:20 | XMS_ITS | Encounter Summary ---
Author Organization [facility] Address 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 Name Role Phone Lisa Nunn DO Primary Care Provider [phone] Reason for Referral * Home Health (Routine) - Pending Review Specialty Diagnoses / Procedures Referred By Chilo t Referred To Contact Diagnoses Closed displaced fracture of right femoral neck with routine healing Injury of neck, subsequent encounter Thoracic injury, subsequent encounter Chronic combined systolic and diastolic congestive heart failure (CMS/HCC) CKD (chronic kidney disease) stage 4, GFR 15-29 ml/min (CMS/HCC) Paroxysmal atrial fibrillation (CMS/HCC) Essential (primary) hypertension Acquired hypothyroidism Frail elderly Recurrent UTI History of CVA (cerebrovascular accident) without residual deficits Lisa Nunn DO [address] [place] [address] Phone: tel: fax: [place] [address] [place] [address] Phone: tel: fax: Referral ID Status Reason Start Date Expiration Date V isits Requested Visits Authorized [id number] Pending Review 04/16/2025 04/16/2026 1 1 Reason for Visit * Reason Comments Hospital Follow Up Hospital f/u from [facility] hip surgery at [facility] Chronic Conditions Coordination Encounter Details Date Type Department Care Team (Late st Contact Info) Description 04/12/2025 4:20 PM CDT Office Visit [facility] [place] [address] [place] [phone] Arline, Lisa L, DO [address] [place] [address] Closed displaced fracture of right femoral neck with routine healing (Primary Dx); Injury of neck, subsequent encounter; Thoracic injury, subsequent encounter; Chronic combined systolic and diastolic congestive heart failure (CMS/HCC); CKD (chronic kidney disease) stage 4, GFR 15-29 ml/min (CMS/HCC); Paroxysmal atrial fibrillation (CMS/HCC); Essential (primary) hypertension; Acquired hypothyroidism; Frail elderly; Recurrent UTI; History of CVA (cerebrovascular accident) without residual deficits Social History Tobacco Use Types Packs/Day Years [...] on file documented as of this encounter Last Filed Vital Signs Vital Sign Reading Time Taken Comments Blood Pressure 102/60 04/12/2025 8:58 AM CDT Pulse 74 04/12/2025 8:58 AM CDT Temperature 36.3 C (97.3 F) 04/12/2025 8:58 AM CDT Respiratory Rate 18 04/12/2025 8:58 AM CDT Oxygen Saturation 96% 04/12/2025 8:58 AM CDT Inhaled Oxygen Concentration - - Weight 65.1 kg (143 lb 9.6 oz) 04/12/2025 8:58 A M CDT Height 160 cm (5' 3 ) 04/12/2025 8:58 AM CDT Body Mass Index 25.44 04/12/2025 8:58 AM CDT documented in this encounter Progress Notes * Lisa Nunn, DO - 04/12/2025 11:41 AM CDT Patient is a 79 y.o. 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 (CMS/HCC) Heart murmur History of CVA (cerebrovascular accident) without residual deficits 03/30/2021 HTN (hypertension) Hypothyroidism 12/30/2020 Primary generalized (osteo)arthritis Past Surgical History: Procedure Laterality Date HX HIP REPLACEMENT Right 03/29/2025 HX HYSTERECTOMY HX KNEE REPLACEMENT, TOTAL Right HX THYROID SURGERY goiter removal HX TUBAL LIGATION Social History Tobacco Use Smoking status: Former Current packs/day: 0.50 Types: Cigarettes Passive exposure: Past Smokeless tobacco: Never Substance Use Topics Alcohol use: Not Currently Family History Problem Relation Name Age of Onset Other Sister twin twin at Heart Disease Father Heart Disease Brother Cancer Sister Other Brother twin twin at Heart Disease Brother Cancer Brother Arthritis-osteo Mother Diabetes Sister Diabetes Brother Review of Systems Constitutional: david reports she is still very weak and tired since being out of the hospital Respiratory: Negative for cough, shortness of breath and wheezing. Cardiovascular: Negative for chest pain, palpitations and leg swelling. Gastrointestinal: Negative for heartburn, nausea and vomiting. She reports appetite is fair Neurological: she reports some memory issues Psychiatric/Behavioral: Negative for depression and suicidal ideas. The patient is not nervous/anxious and does not have insomnia. Musculoskeletal: she is c/o of pain in her neck and middle back since having her fall and breaking her hip. She didn't think these hurt that bad before but seem worse now. Objective: Vitals: 04/12/25 0858 BP: 102/60 Pulse: 74 Resp: 18 Temp: 97.3 ??F (36.3 ??C) SpO2: 96% Weight: 65.1 kg (143 lb 9.6 oz) Height: 5' 3 (1.6 m) Physical Exam Constitutional: frail elderly white female, HENT: Head: Normocephalic. Nose: Nose normal. Mouth/Throat: No oropharyngeal exudate. Eyes: Conjunctivae are normal. Neck: tender to palpate and range of motion is painful Cardiovascular: Normal rate, regular rhythm and normal heart sounds. Pulmonary/Chest: Effort normal. No respiratory distress. No wheezes or rales. Abdominal: Soft. Bowel sounds are normal. Musculoskeletal: right hip has healing incision and ecchymosis. She is tender to palpate thoracic region. Neurological: no gross neuro deficits Psychiatric: normal mood and affect.behavior is normal. Thought content normal. Vitals reviewed. Last Labs: Lab Results Component Value Date/Time HGBA1C 6.0 03/29/2025 12:00 AM MALBUR TNP 10/17/2024 10:55 AM LDLCALC 63 02/05/2025 10:59 AM CREAT 1.43 (H) 02/05/2025 10:59 AM Lab Results Component Value Date/Time CHOLTOT 128 02/05/2025 10:59 AM CHOLTOT 132 10/04/2024 12:03 PM CHOLTOT 134 05/04/2024 02:10 PM HDL 51 02/05/2025 10:59 AM HDL 44 (L) 10/04/2024 12:03 PM HDL 50 05/04/2024 02:10 PM LDLCALC 63 02/05/2025 10:59 AM LDLCALC 66 10/04/2024 12:03 PM LDLCALC 60 05/04/2024 02:10 PM TRIGLYCERIDE 56 02/05/2025 10:59 AM TRIGLYCERIDE 134 10/04/2024 12:03 PM TRIGLYCERIDE 162 (H) 05/04/2024 02:10 PM ALT 10 02/05/2025 10:59 AM AST 19 02/05/2025 10:59 AM Lab Results Component Value Date/Time CREAT 1.43 (H) 02/05/2025 10:59 AM BUN 31 (H) 02/05/2025 10:59 AM NA 137 02/05/2025 10:59 AM K 4.3 02/05/2025 10:59 AM CL 96 (L) 02/05/2025 10:59 AM CO2 31 02/05/2025 10:59 AM GFR 37 (L) 02/05/2025 10:59 AM Lab Results Component Value Date/Time WBC 5.4 02/05/2025 10:59 AM HGB 12.9 02/05/2025 10:59 AM HCT 44.4 02/05/2025 10:59 AM PLT 229 02/05/2025 10:59 AM MCV 92.5 02/05/2025 10:59 AM Lab Results Component Value Date/Time ALT 10 02/05/2025 10:59 AM AST 19 02/05/2025 10:59 AM ALKPHOS 67 02/05/2025 10:59 AM BILITOTAL 1.3 (H) 02/05/2025 10:59 AM Lab Results Component Value Date/Time TSH 3.46 02/05/2025 10:59 AM T3FREE 3.0 12/30/2020 11:59 AM T4FREE 1.4 12/30/2020 11:59 AM Assessment: Encounter Diagnoses Code Name Primary? S72.001D Closed displaced fracture of right femoral neck with routine healing Yes S19.9XXD Injury of neck, subsequent encounter S29.9XXD Thoracic injury, subsequent encounter I50.42 Chronic combined systolic and diastolic congestive heart failure (CMS/HCC) N18.4 CKD (chronic kidney disease) stage 4, GFR 15-29 ml/min (CMS/HCC) I48.0 Paroxysmal atrial fibrillation (CMS/HCC) I10 Essential (primary) hypertension E03.9 Acquired hypothyroidism R54 Frail elderly N39.0 Recurrent UTI Z86.73 History of CVA (cerebrovascular accident) without residual deficits Referral done to home health. Discussed need to get xrays of cervical and thoracic region if she has pain. See orders. Discussed pain management and she will let me know if she needs more pain meds. We reviewed all other medical conditions above. She has a granddaughter who is staying with her and will contact me if she isn't doing better soon. She has follow up with ortho. Plan: I reviewed all medication to treat above conditions. We discussed lifestyle changes that will help with these conditions. All imaging and labs pertaining to this have been reviewed. See orders in epic. documented in this encounter Plan of Treatment Upcoming Encounters Date Type Department Care Team (Late st Contact Info) Description 05/10/2025 11:00 AM CDT Office Visit [facility] [address] [place] [address] Lisa Nunn DO [address] 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 [place] [address] 02/12/2026 9:40 AM CDT Office Visit [facility] [address] [facility] [place] [address] Lisa Nunn, DO [address] [facility] [place] [address] Scheduled Referrals Name Type Priority Associated Diagnoses Orde r Schedule AMB REFERRAL TO HOME CARE Outpatient Referral Routine Closed displaced fracture of right femoral neck with routine healing Injury of neck, subsequent encounter Thoracic injury, subsequent encounter Chronic combined systolic and diastolic congestive heart failure (CMS/HCC) CKD (chronic kidney disease) stage 4, GFR 15-29 ml/min (CMS/HCC) Paroxysmal atrial fibrillation (CMS/HCC) Essential (primary) hypertension Acquired hypothyroidism Frail elderly Recurrent UTI History of CVA (cerebrovascular accident) without residual deficits Ordered: 04/16/2025 documented as of this encounter Results * XR THORACIC SPINE 2 VW (04/13/2025) Anatomical Region Laterality Modality Spine Other us Lisa Nunn DO DIAGNOSTIC IMAGING ORDERABL ES Final Result * XR CERVICAL SPINE 2 OR 3 VIEWS (04/13/2025) Anatomical Region Laterality Modality Spine Other us Lisa Nunn DO DIAGNOSTIC IMAGING ORDERABL ES Final Result documented in this encounter Visit Diagnoses Diagnosis Closed displaced fracture of right femoral neck with routine healing- Primary Injury of neck, subsequent encounter Thoracic injury, subsequent encounter Chronic combined systolic and diastolic congestive heart failure (CMS/HCC) Chronic combined systolic and diastolic heart failure CKD (chronic kidney disease) stage 4, GFR 15-29 ml/min (CMS/HCC) Chronic kidney disease, Stage IV (severe) Paroxysmal atrial fibrillation (CMS/HCC) Atrial fibrillation Essential (primary) hypertension Unspecified essential hypertension Acquired hypothyroidism Unspecified hypothyroidism Frail elderly Senility without mention of psychosis Recurrent UTI Urinary tract infection, site not specified History of CVA (cerebrovascular accident) without residual deficits Transient ischemic attack (TIA), and cerebral infarction without residual deficits documented in this encounter Care Teams Television Installer Helper Relationship Specialty Start Date End Date Lisa Nunn DO [address] [place] [address] PCP - General 12/30/20 documented as of this encounter
[2025-04-18 05:28] VITALS: BP 135/69; PULSE 66; RESP 18; TEMP 36.5; O2SAT 97; BMI 23.7
--- NOTE | 2025-04-18 05:33 | ECG_ITS ---
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 Measurements Intervals [place] Rate: 57 P: -27 DE: 204 QRS: -15 QRSD: 97 T: 117 QT: 434 QTc: 423 Interpretive Statements SINUS BRADYCARDIA LOW QRS VOLTAGE IN PRECORDIAL LEADS [QRS DEFLECTION < 1.0 mV IN CHEST LEADS] ANTEROSEPTAL AND INFERIOR MYOCARDIAL INFARCTION , OF INDETERMINATE AGE [30 ms Q WAVE IN V3/V4, OR R < 0.2 mV IN V4] ST ELEVATION, CONSIDER INFERIOR AND ANTEROLATERAL INJURY [MARKED ST ELEVATION W/O NORMALLY INFLECTED T-WAVE IN II/aVF] POSSIBLE ACUTE MYOCARDIAL INFARCTION Compared to ECG 03/29/2025 13:30:43 Low QRS voltage now present ST ELEVATION (POSSIBLE ACUTE MYOCARDIAL INFARCTION) AND INFERIOR INFARCTION ARE NEW FINDINGS Electronically Signed On 04-18-2025 21:13:47 CDT by Jose Manuel Linares M.D. [email or web address]
--- NOTE | 2025-04-18 05:33 | XRR_ITS ---
PROCEDURE INFORMATION: Exam: XR Chest Exam date and time: 04/18/2025 5:32 AM Age: 79 years old Clinical indication: Shortness of breath; Prior surgery; Surgery date: 6+ months; Surgery type: Cardiac defibrillator; Additional info: SOB TECHNIQUE: Imaging protocol: Radiologic exam of the chest. Views: 1 view. COMPARISON: CR (CHEST, ) 03/31/2025 10:10 AM FINDINGS: Tubes, catheters and devices: Pacemaker/defibrillator. Lungs: Mild interstitial prominence. Emphysematous COPD. Pleural spaces: Small bilateral pleural effusions. Heart/Mediastinum: See Vasculature finding. Vasculature: Moderate cardiomegaly and uncoiling of the thoracic aorta is accentuated by the AP positioning. Bones/joints: Unremarkable. XR/XR chest 1V portable [id number] IMPRESSION: Slightly improved effusions. Otherwise no significant change.
--- NOTE | 2025-04-18 05:33 | W.ED.SOB ---
Documented by User: Fritz Negro MD 04/18/25 05:43 HPI - SOB/Dyspnea General: Chief Complaint: Shortness of Breath/Dyspnea Stated Complaint: sob Time Seen by Provider: 04/18/25 05:31 Source: patient and EMS Mode of arrival: EMS Limitations: no limitations History of Present Illness: HPI Narrative: 79-year-old female with a history of congestive heart failure also has a history of hip fracture earlier this month patient states that tonight while walk around she is feeling some shortness of breath with exertion and felt like she had fluid in her lungs. States that now at rest that her symptoms have resolved she denies any cough denies any chest pain pulse ox here is 97% on room air. Denies any fevers Related Data Home Medications ?Medication ?Instructions ?Recorded ?Confirmed polyethylene glycol 3350 17 gram 17 g PO QAM 11/06/22 04/18/25 oral powder packet (Miralax) levothyroxine 100 mcg tablet 100 mcg PO DAILY 11/11/23 04/18/25 hydrocodone 7.5 mg-acetaminophen 1 tab PO Q4H PRN Pain 03/29/25 04/18/25 325 mg tablet Previous Rx's ?Medication ?Instructions ?Recorded alprazolam 0.25 mg tablet 0.25 mg PO BEDTIME PRN Sleep #30 11/11/23 tabs albuterol sulfate 90 mcg/actuation 2 inh inhalation Q4H PRN shortness 02/17/24 aerosol inhaler of breath or wheezing #18 grams clopidogrel 75 mg tablet See Rx Instructions .Route 05/24/24 .COMPLEX #90 tabs potassium chloride 10 mEq See Rx Instructions .Route 11/30/24 tablet,extended release .COMPLEX #180 tabs amiodarone 200 mg tablet See Rx Instructions .Route 01/11/25 .COMPLEX #90 tabs acetaminophen 325 mg tablet 650 mg (2 x 325 mg) PO Q6H PRN 04/03/25 Mild/Mod Pain Or Temp >/= 101 #60 tabs apixaban 2.5 mg tablet 2.5 mg PO BID #60 tabs 04/03/25 famotidine 20 mg tablet (Pepcid) 20 mg PO DAILY #30 tabs 04/03/25 furosemide 40 mg tablet (Lasix) 40 mg PO QAM #30 tabs 04/03/25 lactulose 10 gram/15 mL oral 10 g (15 mL) PO DAILY PRN 04/03/25 solution Constipation #300 mL multivitamin with folic acid 400 1 tab PO DAILY #100 tabs 04/03/25 mcg tablet (Thera) polysaccharide iron complex 150 mg 150 mg PO BIDWM #60 caps 04/03/25 iron capsule (Ferrex) metoprolol succinate 25 mg 25 mg PO DAILY #90 tabs 04/09/25 tablet,extended release 24 hr (Toprol XL) Allergies Allergy/AdvReac Type Severity Reaction Status Date / Time atorvastatin (From Lipitor) Allergy ADR-Muscle Verified 04/17/25 10:19 Pain Review of Systems Resp: Reports: dyspnea PFSH ED PFSH: Medical History Hypothyroid Coronary artery disease Cardiogenic shock Congestive heart failure Blood in stool POP-Q stage 3 rectocele Rectocele Cystocele Diverticulosis Chronic episodic atrial fibrillation Intermittent atrial fibrillation. Could not tolerate the oral anticoagulation. So she is on Plavix and aspirin Afib Shortness of breath Primary hypertension Surgical History AICD (automatic cardioverter/defibrillator) present History of colonoscopy with polypectomy 2018 H/O total knee replacement right knee History of tubal ligation Hx of appendectomy H/O: hysterectomy H/O thyroidectomy Family History Father , unknown age CAD (coronary artery disease) Brother , age unknown Cancer colon Sister Cancer lungs Mother , in late 60s Lung disease Denies family history of Colon cancer Ovarian cancer Diabetes Clotting disorder Hyperlipidemia Chronic kidney disease (CKD) Breast cancer Suicide Anesthesia complication Bleeding disorder Uterine cancer Thyroid disease Stroke Social History Smoking and tobacco/nicotine status: never used tobacco/nicotine Alcohol intake: never Substance/Drug Use: never Current occupational status: retired Physical Exam Const: COMMON NORMALS: patient oriented x3 HENMT: COMMON NORMALS: normocephalic and atraumatic HEAD & SCALP: normocephalic and atraumatic Eye: COMMON NORMALS: conjunctivae normal CONJUNCTIVA: Yes conjunctivae normal Neck/C-Spine: COMMON NORMALS: full ROM and supple Chest: COMMONS NORMALS: normal inspection of the chest Resp: COMMON NORMALS: normal respiratory effort, No retractions, No use of accessory muscles and clear to auscultation bilaterally AUSCULTATION: clear to auscultation bilaterally Cardio: COMMON NORMALS: regular rate, regular rhythm and No murmurs present (Cardio) RATE: regular rate RHYTHM: regular rhythm GI: COMMON NORMALS: Normal to inspection, nondistended, normoactive bowel sounds present, Soft to palpation, non-tender and no masses PALPATION: Yes Soft to palpation Extremity: COMMON NORMALS: normal to inspection and full ROM Neuro: COMMON NORMALS: patient oriented x3, moves all extremities and no focal motor deficits Psych: COMMON NORMALS: mental status grossly normal, Normal thought process present and cooperative THOUGHT PROCESS: Normal thought process present Skin: COMMON NORMALS: no rashes or lesions noted and no wounds GENERAL SKIN EXAM: no rashes or lesions noted Course Vital Signs: Vital signs: Vital Signs Temperature 97.7 F 04/18/25 05:28 Pulse Rate 68 04/18/25 10:04 Respiratory Rate 18 04/18/25 05:28 Blood Pressure 122/74 04/18/25 10:04 Pulse Oximetry 94 04/18/25 10:04 Oxygen Delivery Me thod Room Air 04/18/25 06:51 MDM - SOB/Dyspnea Medical Decision Making Patient presents here with shortness of breath with exertion. Does have a history of congestive heart failure pulse ox here is normal. Will get blood work including D-dimer to rule out a PE as she had recent surgery will check BNP along with x-ray and EKG. She is having no chest pain no shortness of breath currently care turned over to Dr. Ibrahim at this time Differential Diagnosis Likely acute exacerbation of chronic obstructive airways disease, congestive heart failure, community acquired pneumonia and pulmonary embolism Medical Records I reviewed the patient's medical records. Lab Data I reviewed the patient's lab results. 04/18/25 05:59 04/18/25 05:59 Labs/Radiology: Radiology Impressions Chest X-Ray 04/18/25 05:33 IMPRESSION: Slightly improved effusions. Otherwise no significant change. Chest CTA 04/18/25 06:37 IMPRESSION: 2. Marked cardiomegaly. 3. Small pleural effusions. 4. No embolus. Laboratory Results WBC 5.74 10^3/uL (3.29-11.43) 04/18/25 05:59 RBC 3.81 10^6/uL (3.85-5.65) L 04/18/25 05:59 Hgb 10.20 g/dL (11.27-16.99) L 04/18/25 05:59 Hct 34.1 % (36-47) L 04/18/25 05:59 MCV 89.5 fl (85-98) 04/18/25 05:59 MCH 26.8 pg (27-33) L 04/18/25 05:59 MCHC 29.9 g/dL (30-55) L 04/18/25 05:59 RDW 16.5 % (12.1-15.1) H 04/18/25 05:59 Plt Count 381 10^3/cmm (157-399) 04/18/25 05:59 MPV 9.0 fL (7.4-10.4) 04/18/25 05:59 Neut % (Auto) 69.9 % 04/18/25 05:59 Lymph % (Auto) 14.3 % 04/18/25 05:59 Tyler % (Auto) 11.8 % 04/18/25 05:59 Eos % (Auto) 1.9 % 04/18/25 05:59 Baso % (Auto) 1.2 % 04/18/25 05:59 Neut # (Auto) 4.01 10^3/uL (1.8-7.7) 04/18/25 05:59 Lymph # (Auto) 0.8 10^3/uL (0.8-4.8) 04/18/25 05:59 Tyler # (Auto) 0.7 10^3/uL (0.2-0.9) 04/18/25 05:59 Eos # (Auto) 0.1 10^3/uL (0.0-0.8) 04/18/25 05:59 Baso # (Auto) 0.1 10^3/uL (0.0-0.1) 04/18/25 05:59 Nucleated RBC % (auto) 0 % 04/18/25 05:59 Nucleated RBCs # 0.0 /100WBC 04/18/25 05:59 PT 16.00 SECONDS (12.1-14.9) H 04/18/25 05:59 INR 1.20 (0.8-1.2) 04/18/25 05:59 D-Dimer 3.09 ug/mLFEU (0-0.59) H 04/18/25 05:59 Sodium 138 mmol/L (136-145) 04/18/25 05:59 Potassium 4.4 mmol/L (3.5-5.1) 04/18/25 05:59 Chloride 95 mmol/L (98-107) L 04/18/25 05:59 Carbon Dioxide 30 mmol/L (22-29) H 04/18/25 05:59 Anion Gap 17.4 (5-19) 04/18/25 05:59 BUN 23 mg/dL (8-23) 04/18/25 05:59 Creatinine 1.3 mg/dL (0.5-0.9) H 04/18/25 05:59 GFR Calculation Not Reportable 04/18/25 05:59 Glucose 98 mg/dL (65-115) 04/18/25 05:59 Calculated Osmolality 290 mOsm/kg (285-295) 04/18/25 05:59 Calcium 9.0 mg/dL (8.5-10.5) 04/18/25 05:59 Total Bilirubin 1.6 mg/dL (0.15-1.2) H 04/18/25 05:59 AST 20 U/L (0-32) 04/18/25 05:59 ALT 13 U/L (0-33) 04/18/25 05:59 Alkaline Phosphatase 106 U/L (35-105) H 04/18/25 05:59 Troponin T Baseline 23 ng/L (0-10) H 04/18/25 05:59 Troponin T 120 Minute 22.06 ng/L (0-10) H 04/18/25 08:10 Delta Troponin T -0.94 ABS# (0-10) L 04/18/25 08:10 NT-Pro-B Natriuret Pep 8684 pg/mL (0-450) H 04/18/25 05:59 Total Protein 7.1 g/dL (6.6-8.7) 04/18/25 05:59 Albumin 3.8 g/dL (3.5-5.2) 04/18/25 05:59 Globulin 3.3 g/dL (1.3-4.6) 04/18/25 05:59 All radiology interpretation(s) finalized by discharge Discharge Plan Discharge Patient Disposition: Home Clinical Impression: Dyspnea, Afib Condition: Stable Prescriptions: No Action alprazolam 0.25 mg tablet 0.25 mg PO BEDTIME PRN (Reason: Sleep) Qty: 30 5RF clopidogrel 75 mg tablet See Rx Instructions .ROUTE .COMPLEX Qty: 90 3RF Dose Instruction: Take 1 tablet by mouth once daily Rx Instructions: Take 1 tablet by mouth once daily potassium chloride 10 mEq tablet extended release See Rx Instructions .ROUTE .COMPLEX Qty: 180 3RF Dose Instruction: TAKE 1 TABLET BY MOUTH TWICE DAILY WITH LASIX Rx Instructions: TAKE 1 TABLET BY MOUTH TWICE DAILY WITH LASIX amiodarone 200 mg tablet See Rx Instructions .ROUTE .COMPLEX Qty: 90 3RF Dose Instruction: Take 1 tablet by mouth once daily Rx Instructions: Take 1 tablet by mouth once daily metoprolol succinate [Toprol XL] 25 mg tablet extended release 24 hr 25 mg PO DAILY Qty: 90 3RF levothyroxine 100 mcg tablet 100 mcg PO DAILY polyethylene glycol 3350 [Miralax] 17 gram powder in packet 17 g PO QAM albuterol sulfate 90 mcg/actuation HFA aerosol inhaler 2 inh INHALATION Q4H PRN (Reason: shortness of breath or wheezing) Qty: 18 0RF hydrocodone-acetaminophen 7.5-325 mg tablet 1 tab PO Q4H PRN (Reason: Pain) acetaminophen 325 mg Tablet 650 mg PO Q6H PRN (Reason: Mild/Mod Pain Or Temp >/= 101) Qty: 60 0RF polysaccharide iron complex [Ferrex 150] 150 mg iron Capsule 150 mg PO BIDWM Qty: 60 0RF multivitamin with folic acid [Thera] 400 mcg Tablet 1 tab PO DAILY Qty: 100 0RF lactulose 10 gram/15 mL Solution 10 g PO DAILY PRN (Reason: Constipation) Qty: 300 0RF furosemide [Lasix] 40 mg tablet 40 mg PO QAM Qty: 30 0RF apixaban 2.5 mg tablet 2.5 mg PO BID Qty: 60 0RF famotidine [Pepcid] 20 mg tablet 20 mg PO DAILY Qty: 30 0RF Discharge Orders: Discharge ED (Routine); Ordered 04/18/25 Ordered By: Dick Ibrahim Referrals: Lisa Nunn DO [Primary Care Provider, Family Practice] Discharge Diet: Usual diet Discharge Activity: Resume usual activity Patient Instructions: Opioid Safety, Pain Management, Patient Portal & Brandy Instructions Activity Restrictions/Additional Instructions: Thank you [facility] choosing [facility] for your healthcare needs today. It is very important that you follow up as instructed or that you return to the Emergency Department should you have concerns or if your condition changes or worsens in any way. Emergency department visits are focused on emergent conditions, in some cases you may require further evaluation on an outpatient basis. You were seen in the emergency room with complaints of intermittent shortness of breath. Cardiac enzymes were negative. The D-dimer was mildly elevated but the scan of your chest did not show any signs of blood clot. Chest x-ray was otherwise normal. It is possible that you are intermittently having rapid heart rate from your atrial fibrillation. This was not noted while you were here but it may be intermittently causing your episodes of shortness of breath to check for this we will have you get a Holter monitor as an outpatient follow-up with your primary care doctor. (Please note that included in your discharge packet is information concerning opioid safety and pain management. This information is given to all patients were discharged from the ER regardless of their discharge diagnosis or the medicines they usually take or are prescribed.) Print Language: Frisian Sign Out Sign Out Data: Patient Sign Out occurred on 04/18/25 at 06:01. Patient's care was discussed, and care was transferred from Fritz Negro MD to Dick Ibrahim DO. Coding Level of Care Code ED Geriatric Psychiatrist for Chg Fwd Documented by User: Dick Ibrahim DO 04/18/25 15:36 HPI - SOB/Dyspnea General: Chief Complaint: Shortness of Breath/Dyspnea Stated Complaint: sob Time Seen by Provider: 04/18/25 05:31 Related Data Home Medications ?Medication ?Instructions ?Recorded ?Confirmed polyethylene glycol 3350 17 gram 17 g PO QAM 11/06/22 04/18/25 oral powder packet (Miralax) levothyroxine 100 mcg tablet 100 mcg PO DAILY 11/11/23 04/18/25 hydrocodone 7.5 mg-acetaminophen 1 tab PO Q4H PRN Pain 03/29/25 04/18/25 325 mg tablet Previous Rx's ?Medication ?Instructions ?Recorded alprazolam 0.25 mg tablet 0.25 mg PO BEDTIME PRN Sleep #30 11/11/23 tabs albuterol sulfate 90 mcg/actuation 2 inh inhalation Q4H PRN shortness 02/17/24 aerosol inhaler of breath or wheezing #18 grams clopidogrel 75 mg tablet See Rx Instructions .Route 05/24/24 .COMPLEX #90 tabs potassium chloride 10 mEq See Rx Instructions .Route 11/30/24 tablet,extended release .COMPLEX #180 tabs amiodarone 200 mg tablet See Rx Instructions .Route 01/11/25 .COMPLEX #90 tabs acetaminophen 325 mg tablet 650 mg (2 x 325 mg) PO Q6H PRN 04/03/25 Mild/Mod Pain Or Temp >/= 101 #60 tabs apixaban 2.5 mg tablet 2.5 mg PO BID #60 tabs 04/03/25 famotidine 20 mg tablet (Pepcid) 20 mg PO DAILY #30 tabs 04/03/25 furosemide 40 mg tablet (Lasix) 40 mg PO QAM #30 tabs 04/03/25 lactulose 10 gram/15 mL oral 10 g (15 mL) PO DAILY PRN 04/03/25 solution Constipation #300 mL multivitamin with folic acid 400 1 tab PO DAILY #100 tabs 04/03/25 mcg tablet (Thera) polysaccharide iron complex 150 mg 150 mg PO BIDWM #60 caps 04/03/25 iron capsule (Ferrex) metoprolol succinate 25 mg 25 mg PO DAILY #90 tabs 04/09/25 tablet,extended release 24 hr (Toprol XL) Allergies Allergy/AdvReac Type Severity Reaction Status Date / Time atorvastatin (From Lipitor) Allergy ADR-Muscle Verified 04/17/25 10:19 Pain [facility] ED PFSH: Medical History Hypothyroid Coronary artery disease Cardiogenic shock Congestive heart failure Blood in stool POP-Q stage 3 rectocele Rectocele Cystocele Diverticulosis Chronic episodic atrial fibrillation Intermittent atrial fibrillation. Could not tolerate the oral anticoagulation. So she is on Plavix and aspirin Afib Shortness of breath Primary hypertension Surgical History AICD (automatic cardioverter/defibrillator) present History of colonoscopy with polypectomy 2018 H/O total knee replacement right knee History of tubal ligation Hx of appendectomy H/O: hysterectomy H/O thyroidectomy Family History Father , unknown age CAD (coronary artery disease) Brother , age unknown Cancer colon Sister Cancer lungs Mother , in late 60s Lung disease Denies family history of Colon cancer Ovarian cancer Diabetes Clotting disorder Hyperlipidemia Chronic kidney disease (CKD) Breast cancer Suicide Anesthesia complication Bleeding disorder Uterine cancer Thyroid disease Stroke Social History Smoking and tobacco/nicotine status: never used tobacco/nicotine Alcohol intake: never Substance/Drug Use: never Current occupational status: retired Course Vital Signs: Vital signs: Vital Signs Temperature 97.7 F 04/18/25 05:28 Pulse Rate 68 04/18/25 10:04 Respiratory Rate 18 04/18/25 05:28 Blood Pressure 122/74 04/18/25 10:04 Pulse Oximetry 94 04/18/25 10:04 Oxygen Delivery Me thod Room Air 04/18/25 06:51 MDM - SOB/Dyspnea Medical Decision Making Patient presents here with shortness of breath with exertion. Does have a history of congestive heart failure pulse ox here is normal. Will get blood work including D-dimer to rule out a PE as she had recent surgery will check BNP along with x-ray and EKG. She is having no chest pain no shortness of breath currently care turned over to Dr. Ibrahim at this time Care assumed at change of shift. CTA of the chest is negative. Cardiac enzymes negative her D-dimer was elevated. She does have slight elevation of her T. bili. Which she has had in the past. She has no right upper quadrant pain at this time. Chest x-ray showed slight effusions confirmed on the CTA but there is no pulmonary embolism. Patient wishes to go home states she feels much better. Question whether or not she is having episodes of intermittent atrial fibrillation that are causing her symptoms. She had complained of a slow heart rate at time she has been mildly bradycardic here but asymptomatic of it while at rest. Will discharge home have her set up for outpatient Holter monitor return if she has further problems. Lab Data 04/18/25 05:59 04/18/25 05:59 Labs/Radiology: Radiology Impressions Chest X-Ray 04/18/25 05:33 IMPRESSION: Slightly improved effusions. Otherwise no significant change. Chest CTA 04/18/25 06:37 IMPRESSION: 2. Marked cardiomegaly. 3. Small pleural effusions. 4. No embolus. Laboratory Results WBC 5.74 10^3/uL (3.29-11.43) 04/18/25 05:59 RBC 3.81 10^6/uL (3.85-5.65) L 04/18/25 05:59 Hgb 10.20 g/dL (11.27-16.99) L 04/18/25 05:59 Hct 34.1 % (36-47) L 04/18/25 05:59 MCV 89.5 fl (85-98) 04/18/25 05:59 MCH 26.8 pg (27-33) L 04/18/25 05:59 MCHC 29.9 g/dL (30-55) L 04/18/25 05:59 RDW 16.5 % (12.1-15.1) H 04/18/25 05:59 Plt Count 381 10^3/cmm (157-399) 04/18/25 05:59 MPV 9.0 fL (7.4-10.4) 04/18/25 05:59 Neut % (Auto) 69.9 % 04/18/25 05:59 Lymph % (Auto) 14.3 % 04/18/25 05:59 Tyler % (Auto) 11.8 % 04/18/25 05:59 Eos % (Auto) 1.9 % 04/18/25 05:59 Baso % (Auto) 1.2 % 04/18/25 05:59 Neut # (Auto) 4.01 10^3/uL (1.8-7.7) 04/18/25 05:59 Lymph # (Auto) 0.8 10^3/uL (0.8-4.8) 04/18/25 05:59 Tyler # (Auto) 0.7 10^3/uL (0.2-0.9) 04/18/25 05:59 Eos # (Auto) 0.1 10^3/uL (0.0-0.8) 04/18/25 05:59 Baso # (Auto) 0.1 10^3/uL (0.0-0.1) 04/18/25 05:59 Nucleated RBC % (auto) 0 % 04/18/25 05:59 Nucleated RBCs # 0.0 /100WBC 04/18/25 05:59 PT 16.00 SECONDS (12.1-14.9) H 04/18/25 05:59 INR 1.20 (0.8-1.2) 04/18/25 05:59 D-Dimer 3.09 ug/mLFEU (0-0.59) H 04/18/25 05:59 Sodium 138 mmol/L (136-145) 04/18/25 05:59 Potassium 4.4 mmol/L (3.5-5.1) 04/18/25 05:59 Chloride 95 mmol/L (98-107) L 04/18/25 05:59 Carbon Dioxide 30 mmol/L (22-29) H 04/18/25 05:59 Anion Gap 17.4 (5-19) 04/18/25 05:59 BUN 23 mg/dL (8-23) 04/18/25 05:59 Creatinine 1.3 mg/dL (0.5-0.9) H 04/18/25 05:59 GFR Calculation Not Reportable 04/18/25 05:59 Glucose 98 mg/dL (65-115) 04/18/25 05:59 Calculated Osmolality 290 mOsm/kg (285-295) 04/18/25 05:59 Calcium 9.0 mg/dL (8.5-10.5) 04/18/25 05:59 Total Bilirubin 1.6 mg/dL (0.15-1.2) H 04/18/25 05:59 AST 20 U/L (0-32) 04/18/25 05:59 ALT 13 U/L (0-33) 04/18/25 05:59 Alkaline Phosphatase 106 U/L (35-105) H 04/18/25 05:59 Troponin T Baseline 23 ng/L (0-10) H 04/18/25 05:59 Troponin T 120 Minute 22.06 ng/L (0-10) H 04/18/25 08:10 Delta Troponin T -0.94 ABS# (0-10) L 04/18/25 08:10 NT-Pro-B Natriuret Pep 8684 pg/mL (0-450) H 04/18/25 05:59 Total Protein 7.1 g/dL (6.6-8.7) 04/18/25 05:59 Albumin 3.8 g/dL (3.5-5.2) 04/18/25 05:59 Globulin 3.3 g/dL (1.3-4.6) 04/18/25 05:59 Discharge Plan Discharge Patient Disposition: Home Clinical Impression: Dyspnea, Afib Condition: Stable Prescriptions: No Action alprazolam 0.25 mg tablet 0.25 mg PO BEDTIME PRN (Reason: Sleep) Qty: 30 5RF clopidogrel 75 mg tablet See Rx Instructions .ROUTE .COMPLEX Qty: 90 3RF Dose Instruction: Take 1 tablet by mouth once daily Rx Instructions: Take 1 tablet by mouth once daily potassium chloride 10 mEq tablet extended release See Rx Instructions .ROUTE .COMPLEX Qty: 180 3RF Dose Instruction: TAKE 1 TABLET BY MOUTH TWICE DAILY WITH LASIX Rx Instructions: TAKE 1 TABLET BY MOUTH TWICE DAILY WITH LASIX amiodarone 200 mg tablet See Rx Instructions .ROUTE .COMPLEX Qty: 90 3RF Dose Instruction: Take 1 tablet by mouth once daily Rx Instructions: Take 1 tablet by mouth once daily metoprolol succinate [Toprol XL] 25 mg tablet extended release 24 hr 25 mg PO DAILY Qty: 90 3RF levothyroxine 100 mcg tablet 100 mcg PO DAILY polyethylene glycol 3350 [Miralax] 17 gram powder in packet 17 g PO QAM albuterol sulfate 90 mcg/actuation HFA aerosol inhaler 2 inh INHALATION Q4H PRN (Reason: shortness of breath or wheezing) Qty: 18 0RF hydrocodone-acetaminophen 7.5-325 mg tablet 1 tab PO Q4H PRN (Reason: Pain) acetaminophen 325 mg Tablet 650 mg PO Q6H PRN (Reason: Mild/Mod Pain Or Temp >/= 101) Qty: 60 0RF polysaccharide iron complex [Ferrex 150] 150 mg iron Capsule 150 mg PO BIDWM Qty: 60 0RF multivitamin with folic acid [Thera] 400 mcg Tablet 1 tab PO DAILY Qty: 100 0RF lactulose 10 gram/15 mL Solution 10 g PO DAILY PRN (Reason: Constipation) Qty: 300 0RF furosemide [Lasix] 40 mg tablet 40 mg PO QAM Qty: 30 0RF apixaban 2.5 mg tablet 2.5 mg PO BID Qty: 60 0RF famotidine [Pepcid] 20 mg tablet 20 mg PO DAILY Qty: 30 0RF Discharge Orders: Discharge ED (Routine); Ordered 04/18/25 Ordered By: Dick Ibrahim Referrals: Lisa Nunn DO [Primary Care Provider, [facility]] Discharge Diet: Usual diet Discharge Activity: Resume usual activity Patient Instructions: Opioid Safety, Pain Management, Patient Portal & Brandy Instructions Activity Restrictions/Additional Instructions: Thank you for choosing [facility] for your healthcare needs today. It is very important that you follow up as instructed or that you return to the Emergency Department should you have concerns or if your condition changes or worsens in any way. Emergency department visits are focused on emergent conditions, in some cases you may require further evaluation on an outpatient basis. You were seen in the emergency room with complaints of intermittent shortness of breath. Cardiac enzymes were negative. The D-dimer was mildly elevated but the scan of your chest did not show any signs of blood clot. Chest x-ray was otherwise normal. It is possible that you are intermittently having rapid heart rate from your atrial fibrillation. This was not noted while you were here but it may be intermittently causing your episodes of shortness of breath to check for this we will have you get a Holter monitor as an outpatient follow-up with your primary care doctor. (Please note that included in your discharge packet is information concerning opioid safety and pain management. This information is given to all patients were discharged from the ER regardless of their discharge diagnosis or the medicines they usually take or are prescribed.) Print Language: Frisian Sign Out Sign Out Data: Patient Sign Out occurred on 04/18/25 at 06:01. Patient's care was discussed, and care was transferred from Fritz Negro MD to Dick Ibrahim DO. Coding Level of Care Code ED Geriatric Psychiatrist for Adan Haro
[2025-04-18 05:34] VITALS: BP 135/69; PULSE 58; O2SAT 93
--- OUTSIDE RECORDS SUMMARY | 2025-04-18 05:40 | XMS_ITS | Encounter Summary ---
Author Organization [facility] Address [address] [place] [address] Care Team Providers Care Forest Fire Specialist Supervisor Name Role Phone Lisa Nunn DO Primary Care Provider [phone] Reason for Visit * Reason Comments Provider Call Encounter Details Date Type Department Care Team (Late st Contact Info) Description 04/17/2025 Telephone [facility] Medicine [place] [address] [place] [address] Lisa Nunn, [address] [place] [address] Provider Call Social History Tobacco Use Types Packs/Day Years [...] encounter Miscellaneous Notes * Telephone Encounter - Mira Bazzi LPN - 04/17/2025 11:06 AM CDT [facility] will not take. [facility] will not take. Will send to [facility] Mira Bazzi LPN, 04/17/2025 11:06 AM * Telephone Encounter - Shonda Mcmahon - 04/17/2025 8:09 AM CDT Copied from [facility] #[id number]. Topic: [id number] Call >> Apr 17, 2025 8:08 AM Shonda Hwang wrote: Caller is requesting to speak with Clinical Care Team. Caller Name: [facility] Callback Number: [phone] Is the caller a Physician, Nurse Practitioner or Physician Supervisor Byproducts? No Call Notes: they are unable to take pt due to her insurance Is this addressing an immediate patient care need? No documented in this encounter Plan of Treatment Upcoming Encounters Date Type Department Care Team (Late st Contact Info) Description 05/10/2025 11:00 AM CDT Office Visit [facility] [address] [place] [address] Lisa Nunn, DO [address] [facility] [place] [address] 08/14/2025 11:40 AM ELDERLY SITTER Office Visit [facility] [address] [facility] [place] [address] Lisa Nunn, DO [address] [facility] [place] [address] 11/01/2025 9:20 AM CDT Office Visit [facility] [address] [facility] [place] [address] Lisa Nunn, DO [address] [facility] [place] [address] 02/12/2026 9:40 AM CDT Office Visit [facility] [address] [facility] [place] [address] Lisa Nunn, DO [address] [facility] [place] [address] documented as of this encounter Visit Diagnoses Not on filedocumented in this encounter Care Teams Forest Fire Specialist Supervisor Relationship Specialty Start Date End Date Lisa Nunn DO [address] [facility] [place] [phone] PCP - General 12/30/20 documented as of this encounter
--- OUTSIDE RECORDS SUMMARY | 2025-04-18 05:40 | XMS_ITS | Encounter Summary ---
Author Organization [facility] Address [address] [place] [address] Care Team Providers Care Mountain Guide Name Role Phone Lisa Nunn DO Primary Care Provider [phone] Encounter Details Date Type Department Care Team (Late st Contact Info) Description 04/09/2025 Orders Only [facility] [address] [address] Provider, Abstract NO ADDRESS ON FILE Social History Tobacco Use Types Packs/Day Years [...] as of this encounter Plan of Treatment Upcoming Encounters Date Type Department Care Team (Late st Contact Info) Description 05/10/2025 11:00 AM CDT Office Visit [facility] [address] [place] [facility] [address] Lisa Nunn, DO [address] [place] [address] 08/14/2025 11:40 AM CLIENT EXECUTIVE Office Visit [facility] [address] [place] [facility] [address] Lisa Nunn, DO [address] [place] [address] 11/01/2025 9:20 AM CDT Office Visit [facility] [address] [place] [facility] [address] Lisa Nunn, DO [address] [place] [address] 02/12/2026 9:40 AM CDT Office Visit [facility] [address] [place] [address] Lias Nunn, DO [address] [facility] [place] [address] documented as of this encounter Procedures Procedure Name Priority Date/Time Associated Diagnosis Comments BASIC METABOLIC PANEL Routine 04/03/2025 3:27 PM CDT documented in this encounter Results * BASIC METABOLIC PANEL (04/03/2025 3:27 PM CDT) Blood us Abstract Provider CHEMISTRY ORDERABLES Final Res ult documented in this encounter Visit Diagnoses Not on filedocumented in this encounter Care Teams Mountain Guide Relationship Specialty Start Date End Date Lias Nunn DO [address] [place] [address] PCP - General 12/30/20 documented as of this encounter
--- OUTSIDE RECORDS SUMMARY | 2025-04-18 05:40 | XMS_ITS | Encounter Summary ---
Author Organization [facility] Address [address] [place] [address] Care Team Providers Care Outside Cutter Hand Name Role Phone Lisa Nunn DO Primary Care Provider [phone] Encounter Details Date Type Department Care Team (Late Contact Info) Description 04/10/2025 External Device Data [place] ABSTRACTION Provider, Abstract NO ADDRESS ON FILE Social [...] Description 05/10/2025 11:00 AM CDT Office Visit [facility] [address] [place] [facility] [address] Lisa Nunn, DO [address] [place] [address] 08/14/2025 11:40 AM OFFICE DIRECTOR Office Visit [facility] [address] [place] [facility] [address] Lisa Nunn, DO [address] [place] [address] 11/01/2025 9:20 AM CDT Office Visit [facility] [address] [place] [facility] [place] [address] Lisa Nunn, DO [address] [place] [address] 02/12/2026 9:40 AM CDT Office Visit [facility] [address] [place] [facility] [address] Lisa Nunn, DO [address] [place] [address] documented as of this encounter Visit Diagnoses Not on filedocumented in this encounter Care Teams Outside Cutter Hand Relationship Specialty Start Date End Date Lisa Nunn DO [address] [place] [address] PCP - General 12/30/20 documented as of this encounter
--- OUTSIDE RECORDS SUMMARY | 2025-04-18 05:40 | XMS_ITS | Encounter Summary ---
Author Organization [facility] Address [address] [place] [address] Care Team Providers Care District Medical Examiner Name Role Phone Lisa Nunn DO Primary Care Provider [phone] Reason for Visit * Reason Comments Provider Call Encounter Details Date Type Department Care Team (Late st Contact Info) Description 04/16/2025 Telephone [facility] Medicine [place] [address] [place] [address] Lisa Nunn, [address] [place] [address] Provider Call Social History Tobacco [...] encounter Miscellaneous Notes * Telephone Encounter - Winter Mansfield - 04/16/2025 1:16 PM CDT Copied from [facility] #[id number]. Topic: [id number] Call >> Apr 16, 2025 1:13 PM Winter Hwang wrote: Caller is requesting to speak with Clinical Care Team. Caller Name: [facility] Callback Number: [phone] Is the caller a Physician, Nurse Practitioner or Physician Dewaxer? No Call Notes: Called stating they do not have the staffing to see pt at this time Is this addressing an immediate patient care need? No documented in this encounter Plan of Treatment Upcoming Encounters Date Type Department Care Team (Late st Contact Info) Description 05/10/2025 11:00 AM CDT Office Visit [facility] [address] [place] [address] Lisa Nunn, DO [address] [place] [address] 08/14/2025 11:40 AM COMMERCIAL LENDING RELATIONSHIP MANAGER Office Visit [facility] [address] [place] [address] Lisa Nunn, DO [address] [place] [address] 11/01/2025 9:20 AM CDT Office Visit [facility] [address] [place] [address] Lisa Nunn, DO [address] [facility] [place] [address] 02/12/2026 9:40 AM CDT Office Visit [facility] [address] [place] [address] Lisa Nunn DO [address] [place] [address] documented as of this encounter Visit Diagnoses Not on filedocumented in this encounter Care Teams District Medical Examiner Relationship Specialty Start Date End Date Lisa Nunn DO [address] [place] [address] PCP - General 12/30/20 documented as of this encounter
--- OUTSIDE RECORDS SUMMARY | 2025-04-18 05:40 | XMS_ITS | Encounter Summary ---
Author Organization [facility] Address [address] [place] [address] Care Team Providers Care Heavy Equipment Mechanic Name Role Phone Lisa Nunn DO Primary Care Provider [phone] Encounter Details Date Type Department Care Team (Late Contact Info) Description 04/11/2025 External Device Data STL ABSTRACTION Provider, Abstract [...] Description 05/10/2025 11:00 AM CDT Office Visit [facility] [address] [place] [facility] [place] [address] Lisa Nunn, DO [address] [place] [facility] [place] [address] 08/14/2025 11:40 AM COUNSELOR CAMP Office Visit [facility] [address] [place] [facility] [place] [address] Lisa Nunn, DO [address] [facility] [place] [place] [address] 11/01/2025 9:20 AM CDT Office Visit [facility] [address] [place] [facility] [place] [address] Lisa Nunn, DO [address] [facility] [place] [address] 02/12/2026 9:40 AM CDT Office Visit [facility] [address] [place] [facility] [place] [address] Lisa Nunn, DO [address] [facility] [place] [address] documented as of this encounter Visit Diagnoses Not on filedocumented in this encounter Care Teams Heavy Equipment Mechanic Relationship Specialty Start Date End Date Lisa Nunn DO [address] [place] [facility] [place] [address] PCP - General 12/30/20 documented as of this encounter
--- OUTSIDE RECORDS SUMMARY | 2025-04-18 05:41 | XMS_ITS | Encounter Summary ---
Author Organization [facility] Address [address] [place] [address] Care Team Providers Care Straight Ruling Machine Operator Name Role Phone Lisa Nunn DO Primary Care Provider [phone] Encounter Details Date Type Department Care Team (Late Contact Info) Description 04/17/2025 External Device Data STL ABSTRACTION Provider, Abstract [...] Visit [facility] [address] [facility] [place] [address] Lisa Nunn, DO [address] [facility] [place] [address] 08/14/2025 11:40 AM PERFORMANCE CONSULTANT Office Visit [facility] [address] [facility] [place] [address] Lisa Nunn, DO [address] [facility] [place] [address] 11/01/2025 9:20 AM CDT Office Visit [facility] [address] [facility] [place] [address] Lisa Nunn, DO [address] [facility] [place] [address] 02/12/2026 9:40 AM CDT Office Visit [facility] [address] [facility] [place] [address] Lisa Nunn, DO [address] [facility] [place] [address] documented as of this encounter Visit Diagnoses Not on filedocumented in this encounter Care Teams Straight Ruling Machine Operator Relationship Specialty Start Date End Date Lisa Nunn DO [address] [facility] [place] [address] PCP - General 12/30/20 documented as of this encounter
--- OUTSIDE RECORDS SUMMARY | 2025-04-18 05:41 | XMS_ITS | Encounter Summary ---
Author Organization [facility] Address [address] [place] [address] Care Team Providers Care Electrolytic De Scaler Name Role Phone Lisa Palacios DO Primary Care Provider [phone] Reason for Visit * Reason Onset Date Comments Needs Orders Written 05/15/2021 Encounter Details Date Type Department Care Team (Late st Contact Info) Description 05/15/2021 Telephone [facility] [address] [place] [address] Lisa Palacios, DO [address] [place] [address] Needs Orders Written Social History Tobacco Use [...] with Alyssa and she will try to parts picker stool supplies this week. Alyssa will [...] CDT This was supposed to go to [facility]. * Telephone Encounter - Lisa Palacios DO [...] would like a call back. Call back# [phone] documented in this encounter Plan of Treatment Upcoming Encounters Date Type Department Care Team (Late st Contact Info) Description 05/10/2025 11:00 AM CDT Office Visit [facility] [address] [place] [address] Lisa Palacios, DO [address] [place] [address] 08/14/2025 11:40 AM DOGMAN/WOMAN Office Visit [facility] [address] [place] [address] Lisa Palacios, DO [address] [place] [address] 11/01/2025 9:20 AM CDT Office Visit [facility] [address] [place] [address] Lisa Palacios, DO [address] [place] [address] 02/12/2026 9:40 AM CDT Office Visit [facility] [address] [place] [address] Lisa Palacios DO [address] [place] [address] documented as of this encounter Visit Diagnoses Not on filedocumented in this encounter Additional Health Concerns Infection Onset Date Last Indicated Resolved Time R/O COVID-19 07/22/2024 07/22/2024 07/22/2024 9:09 AM DOGMAN/WOMAN R/O COVID-19 08/30/2024 08/30/2024 08/30/2024 4:22 PM DOGMAN/WOMAN documented as of this encounter Care Teams Electrolytic De Scaler Relationship Specialty Start Date End Date Lisa Palacios DO [address] [place] [address] PCP - General 12/30/20 documented as of this encounter
--- OUTSIDE RECORDS SUMMARY | 2025-04-18 05:41 | XMS_ITS | Encounter Summary ---
Author Organization [facility] Address [address] [place] [address] Care Team Providers Care Canopy Stringer Name Role Phone Lisa Nunn DO Primary Care Provider [phone] Reason for Visit * Reason Comments Provider Call Encounter Details Date Type Department Care Team (Late st Contact Info) Description 04/17/2025 Telephone [facility] Medicine [place] [address] [place] [address] Lisa Nunn, [address] [place] [address] Provider Call Social History Tobacco [...] encounter Miscellaneous Notes * Telephone Encounter - Elaine Hernandez CMA - 04/17/2025 12:30 PM CDT Images from the original note were not included. Mira Bazzi LPN SS 04/17/25 11:06 AM Note [facility] will not take. [facility] will not take. Will send to [facility] Mira Bazzi LPN, 04/17/2025 11:06 AM * Telephone Encounter - Sarai Rosales - 04/17/2025 12:21 PM CDT Copied from [facility] #[id number]. Topic: [id number]-[id number]-[id number] Call >> Apr 17, 2025 12:19 PM Sarai Gonzalez wrote: Caller is requesting to speak with Clinical Care Team. Caller Name: [facility] Callback Number: [phone] ext [phone] Is the caller a Physician, Nurse Practitioner or Physician Workforce Analyst? No Call Notes: Received referral for this patient but they are unable to provide services. [facility] spots are full and the referral needs to be sent to another [facility] facility. Is this addressing an immediate patient care need? No documented in this encounter Plan of Treatment Upcoming Encounters Date Type Department Care Team (Late st Contact Info) Description 05/10/2025 11:00 AM CDT Office Visit [facility] Medicine [place] [address] [place] [address] Lisa Nunn, [address] [place] [address] 08/14/2025 11:40 AM BOG CUTTER Office Visit [facility] [address] [facility] [place] [address] Lisa Nunn, DO [address] [facility] [place] [address] 11/01/2025 9:20 AM CDT Office Visit [facility] [address] [facility] [place] [address] Lisa Nunn, DO [address] [facility] [place] [address] 02/12/2026 9:40 AM CDT Office Visit [facility] [address] [facility] [place] [address] Lisa Nunn, DO [address] [facility] [place] [address] documented as of this encounter Visit Diagnoses Not on filedocumented in this encounter Care Teams Canopy Stringer Relationship Specialty Start Date End Date Lisa Nunn DO [address] [facility] [place] [address] PCP - General 12/30/20 documented as of this encounter
--- OUTSIDE RECORDS SUMMARY | 2025-04-18 05:41 | XMS_ITS | Clinical Summary ---
Author Organization [facility] Address [address] [place] [address] Care Team Providers Care Membership Sales Manager Name Role Phone Lisa Nunn Primary Care Provider [phone] Allergies Active Allergy Reactions Criticality Noted Date [...] Description 02/06/2025 9:40 AM CDT Office Visit [facility] [address] [place] [address] Oliva Pace MD Stage 3a chronic kidney disease (HCC) (Primary Dx); Hypertensive chronic kidney disease with stage 1 through stage 4 chronic kidney disease, or unspecified chronic kidney disease; Congestive heart failure, not otherwise specified (HCC) 02/01/2025 Telephone [facility] [address] [facility] [address] [place] [address] Babita Godoy MA from Last [...] cm (5' 3 ) 08/08/2024 2:44 PM HR RECRUITER Body Mass Index 22.07 08/08/2024 2:44 PM HR RECRUITER Plan of Treatment Health Maintenance Due Date Last Done Comments Pneumococcal Vaccine: 50+ Ye ars (1 of 2 - PCV) 11/04/1964 Influenza Vaccine (#1) 2025 05/04/2024 Hepatitis B Vaccine Aged Out No longe r eligible based on patient's age to complete this topic Insurance [facility] Dual [facility]lig [facility] Medicaid [place] ([facility]) Care Teams Membership Sales Manager Relationship Specialty Start Date End Date Lisa Nunn DO [address] [place] [address] PCP - General Family Medicine 08/08/24
--- OUTSIDE RECORDS SUMMARY | 2025-04-18 05:41 | XMS_ITS | Encounter Summary ---
Author Organization [facility] Address [address] [place] [address] Care Team Providers Care Electrotherapist Name Role Phone Lisa Nunn DO Primary Care Provider [phone] Encounter Details Date Type Department Care Team (Late st Contact Info) Description 04/17/2025 Orders Only [facility] Medicine [place] [address] [place] [address] Lisa Nunn, DO [address] [place] [address] Injury of neck, subsequent encounter; Thoracic injury, subsequent encounter Social History Tobacco Use Types Packs/Day Years [...] Description 05/10/2025 11:00 AM CDT Office Visit [facility] [address] [place] [address] Lisa Nunn, DO [address] [place] [address] 08/14/2025 11:40 AM SOURCING SPECIALIST Office Visit [facility] [address] [place] [address] Lisa Nunn, DO [address] [facility] [place] [address] 11/01/2025 9:20 AM CDT Office Visit [facility] [address] [place] [facility] [address] Lisa Nunn, DO [address] [place] [address] 02/12/2026 9:40 AM CDT Office Visit [facility] [address] [place] [address] Lisa Nunn, DO [address] [facility] [place] [address] documented as of this encounter Procedures Procedure Name Priority Date/Time Associated Diagnosis Comments XR THORACIC SPINE 2 VW Routine 04/13/2025 Injury of neck, subsequent encounter Thoracic injury, subsequent encounter XR CERVICAL SPINE 2 OR 3 VIEWS Routine 04/13/2025 Injury of neck, subsequent encounter Thoracic injury, subsequent encounter documented in this encounter Results * XR CERVICAL SPINE 2 OR 3 VIEWS (04/13/2025) Anatomical Region Laterality Modality Spine Other us Lisa Nunn DO DIAGNOSTIC IMAGING ORDERABL ES Final Result * XR THORACIC SPINE 2 VW (04/13/2025) Anatomical Region Laterality Modality Spine Other us Lisa Nunn DO DIAGNOSTIC IMAGING ORDERABL ES Final Result documented in this encounter Visit Diagnoses Diagnosis Injury of neck, subsequent encounter Thoracic injury, subsequent encounter documented in this encounter Care Teams Electrotherapist Relationship Specialty Start Date End Date Lisa Nunn DO [address] [place] [address] PCP - General 12/30/20 documented as of this encounter
--- OUTSIDE RECORDS SUMMARY | 2025-04-18 05:41 | XMS_ITS | Clinical Summary ---
Author Organization [facility] Jluis sanchez Taney Address [address] [place] [address] Phone Care Team Providers Care Stereotyper Name Role Phone ArlineLisa christina Primary Care Provider Allergies Active Allergy Reactions Criticality Noted Date Comments Atorvastatin Muscle Pain Low 11/28/2020 Medications amiodarone (CORDARONE) 200 mg tablet Take 1 Tablet by mouth daily. 2 Active polyethylene glycol 3350 (MIRALAX) 17 gram/dose PowderIndications: Chronic constipation Take 1 Scoop (17 Grams) by mouth daily. Dissolve in 8 ounces of fluid and drink entire liquid 527 Gram 5 3 Active clopidogreL 75 mg tablet Take 75 [...] hours as needed for Pain. 30 Tablet 5 Active levothyroxine 100 mcg tabletIndications: Acquired hypothyroidism TAKE 1 TABLET BY MOUTH ONCE DAILY IN THE MORNING 90 Tablet 3 5 Active albuterol sulfate HFA 90 mcg/actuation aerosol inhalerIndications :Chronic obstructive pulmonary disease, unspecified COPD type (CMS/HCC) INHALE 2 PUFFS BY MOUTH EVERY 6 HOURS NEEDED FOR SHORTNESS OF BREATH 9 Gram Active mineral oil Oil Take 30 mL by mouth 1 time daily as needed for Constipation. Active diclofenac sodium (VOLTAREN) 1 % gel Apply 2-4 Grams to affected area 4 times daily. 100 Gram 6 5 Active ALPRAZolam (XANAX) 0.25 mg tabletIndications: Generalized anxiety disorder TAKE 1 TABLET BY MOUTH ONCE DAILY AT NIGHT NEEDED FOR ANXIETY 30 Tablet Active HYDROcodone-acetam inophen (NORCO) 7.5-325 mg TabletIndications: Chronic neck pain,Chronic midline thoracic back pain Take 1 Tablet by mouth every 4 hours as needed for Pain, Moderate. Max Daily Amount: 6 Tablets 30 Tablet 5 Active Active Problems Problem Noted Date Diagnosed Date [...] Encounters Date Type Department Care Team Description 04/17/2025 External Device Data STL ABSTRACTION Provider, Abstract 04/17/2025 Results Follow-Up [facility] [address] [place] [facility] [place] [phone] Lisa Nunn DO XR THORACIC SPINE 2 VW 04/17/2025 Orders Only [facility] [address] [facility] [phone] Lisa Nunn DO Injury of neck, subsequent encounter; Thoracic injury, subsequent encounter 04/17/2025 Telephone [facility] [address] [place] [facility] [place] [phone] Lisa Nunn DO Provider Call 04/17/2025 Telephone [facility] [address] [place] [address] Lisa Nunn DO Provider Call 04/16/2025 Telephone [facility] [address] [place] [address] Lisa Nunn DO Provider Call 04/12/2025 4:20 PM CDT Office Visit [facility] [address] [place] [address] Lisa Nunn DO Closed displaced fracture of right femoral neck with routine healing (Primary Dx); Injury of neck, subsequent encounter; Thoracic injury, subsequent encounter; Chronic combined systolic and diastolic congestive heart failure ([facility]/HCC); CKD (chronic kidney disease) stage 4, GFR 15-29 ml/min ([facility]); Paroxysmal atrial fibrillation ([facility]); Essential (primary) hypertension; Acquired hypothyroidism; Frail elderly; Recurrent UTI; History of CVA (cerebrovascular accident) without residual deficits 04/11/2025 External Device Data STL ABSTRACTION Provider, Abstract 04/10/2025 External Device Data STL ABSTRACTION Provider, Abstract 04/09/2025 Abstract [facility] [address] [place] [address] Lisa Nunn DO 04/09/2025 Orders Only [facility] [address] [place] [address] Provider, Abstract 03/30/2025 Orders Only [facility] [address] [place] [address] Provider, Abstract 03/30/2025 Abstract [facility] [address] [place] [address] Provider, Abstract 03/19/2025 Refill [facility] [address] [place] [address] Lisa Nunn DO Generalized anxiety disorder; Chronic neck pain; Chronic midline thoracic back pain 03/14/2025 External Device Data STL ABSTRACTION Provider, Abstract 02/15/2025 Refill [facility] [address] [place] [address] Lisa Nunn, Generalized anxiety disorder 02/13/2025 External Device Data STL ABSTRACTION Provider, Abstract 02/05/2025 10:40 AM CDT Office Visit [facility] [address] [place] [address] GonzalesOctober, BAKER CHEF Recurrent UTI (Primary Dx); CKD (chronic kidney disease) stage 4, GFR 15-29 ml/min ([facility]); Acquired hypothyroidism; Chronic combined systolic and diastolic congestive heart failure ([facility]); Essential (primary) hypertension; Paroxysmal atrial fibrillation ([facility]); Chronic neck pain; Chronic midline thoracic back pain; Frail elderly; Generalized anxiety disorder 01/29/2025 Results Follow-Up [facility] [address] [place] [address] Lisa Nunn, DO URINALYSIS WITH REFLEX CULTURE 01/29/2025 Refill [facility] [address] [place] [address] Lisa Nunn, Chronic neck pain; Chronic midline thoracic back pain 01/29/2025 Refill [facility] [address] [place] [address] Lisa Nunn, Generalized anxiety disorder 01/23/2025 9:30 AM CDT Procedure visit [facility] [address] [place] [facility] [place] [address] 01/23/2025 Orders Only [place] [address] [place] [address] Lisa Nunn, Recurrent UTI 01/23/2025 Telephone [facility] [place] [address] [place] [address] Lisa Nunn, DO Clinical Consult Before Scheduling from Last 3 Months Immunizations Immunization Administration [...] Other Brother 2 twin twin at [facility] Heart Disease Brother 3 Cancer Brother 4 Diabetes Brother 5 Heart Disease Father Arthritis-osteo Mother Other Sister 1 twin twin at [facility] Cancer Sister 2 Diabetes Sister 3 Relation [...] Mass Index 25.44 04/12/2025 8:58 AM CDT Plan of Treatment Upcoming Encounters Date Type Department Care Team (Late st Contact Info) Description 05/10/2025 11:00 AM CDT Office Visit [facility] [address] [place] [phone] Lisa Nunn, DO [address] [place] [address] 08/14/2025 11:40 AM CUSTOMER SERVICE ANALYST Office Visit [facility] [address] [place] [address] Lisa Nunn, DO [address] [place] [address] 11/01/2025 9:20 AM CDT Office Visit [facility] [address] [place] [address] Lisa Nunn, DO [address] [place] [facility] [place] [phone] 02/12/2026 9:40 AM CDT Office Visit [facility] [address] [place] [facility] [place] [phone] Lisa Nunn, DO [address] [place] [facility] [address] Health Maintenance Due Date Last Done Comments DTAP/TDAP/TD VACCINES (1 - Tdap) 11/04/1962 ZOSTER VACCINE (1 of 2) 11/04/1993 OSTEOPOROSIS SCREENING 11/04/2008 RSV VACCINE (60+ or ) (1 - 1-dose 75+ series) 11/04/2018 INFLUENZA VACCINE (#1) 2025 , 04/08/2023, 04/16/2022, Additional history exists COVID-19 Vaccine ( - 2024-2 6 season) 2025 08/31/2021, 09/30/2020, 08/30/2020 COLORECTAL SCREENING Discontinued 04/30/2021 Colorectal Cancer Screening Discontinued PNEUMOCOCCAL VACCINE 50+ YEARS Completed 04/16/2022 Medicare Advantage (OR) Preventative Visit/Annual Wellness Visit Completed 10/04/2024, 09/02/2023, 01/28/2022 FIT-DNA Q 3 years Discontinued FIT/FOBT Q 1 year Discontinued Flex Sig/CT Colonography Q 5 years Discontinued Procedures Procedure Name Priority Date/Time Associated Diagnosis Comments XR CERVICAL SPINE 2 OR 3 VIEWS Routine 04/13/2025 Injury of neck, subsequent encounter Thoracic injury, subsequent encounter XR THORACIC SPINE 2 VW Routine 04/13/2025 Injury of neck, subsequent encounter Thoracic injury, subsequent encounter BASIC METABOLIC PANEL Routine 04/03/2025 3:27 PM CDT COMPREHENSIVE METABOLIC PANEL Routine 03/29/2025 1:12 PM CDT HEMOGLOBIN A1C Routine 03/29/2025 PROTIME-INR Routine 03/29/2025 QUEST TEST IN QUESTION (ACTION NEEDED) (NO [...] Recently Relevant to Health Maintenance Results * XR THORACIC SPINE 2 VW (04/13/2025) Anatomical Region Laterality Modality Spine Other Lisa Nunn DO DIAGNOSTIC IMAGING ORDERABL ES Final Result * XR CERVICAL SPINE 2 OR 3 VIEWS (04/13/2025) Anatomical Region Laterality Modality Spine Other us Lisa Nunn DO DIAGNOSTIC IMAGING ORDERABL ES Final Result * BASIC METABOLIC PANEL (04/03/2025 3:27 PM CDT) Blood Abstract Provider CHEMISTRY ORDERABLES Final Res ult * COMPREHENSIVE METABOLIC PANEL (03/29/2025 1:12 PM CDT) Only the most recent of2 resultswithin the time period is included. Blood Abstract Provider CHEMISTRY ORDERABLES Final Res ult * PROTIME-INR (03/29/2025) ABSTRACTED PROTIME 15.2 ABSTRACTED INR 1.12 Blood 03/29/2025 Abstract Provider HEMATOLOGY ORDERABLES Final Re sult * HEMOGLOBIN A1C (03/29/2025) ABSTRACTED HGB A1C 6.0 % Blood 03/29/2025 Abstract Provider CHEMISTRY ORDERABLES Final Res ult * QUEST TEST IN QUESTION (ACTION NEEDED) (NO MY CHART) (02/05/2025 10:59 AM CDT) REPORT/SPECIMEN COMMENT [facility] Comment: Whole blood, unspun or partially spun gel barrier tube was received more than 6 hours since collection. A false elevation of K, Phos and LD as well as a false decrease in glucose may occur due to prolonged contact with red cells. Test Performed at: [facility] [address] [facility] [place] [address] Uli Chase MD 02/05/2025 10:5 9 AM CDT 02/06/2025 3:00 AM CDT Lisa Allen Nunn DO CHEMISTRY ORDERABLES Final Result [facility] [phone] [facility] [address] [address] [facility] [place] [address] * (ABNORMAL) CBC WITH DIFFERENTIAL (02/05/2025 10:59 [...] [facility] Comment: Test Performed at: [facility] [address] [place] [address] Uli Chase MD Blood 02/05/2025 10:5 9 AM CDT 02/06/2025 3:00 AM CDT us Lisajose Nunn DO HEMATOLOGY ORDERABLES Final Result Performing Organization Address City/[facility]/ZIP Co de Phone Number [facility] [phone] [facility] [address] [place] [address] * TSH (02/05/2025 10:59 AM CDT) Pathologist [facility] TSH 3.46 0.40 - 4.50 mIU/L [facility] Comment: Test Performed at: [facility] [place] [address] Uli Chase MD Blood 02/05/2025 10:5 9 AM CDT 02/06/2025 3:00 AM CDT Lisa Nunn DO CHEMISTRY ORDERABLES Final Result Performing Organization Address City/[facility]/ZIP Co de Phone Number [facility] [phone] [facility] [address] [place] [address] * (ABNORMAL) BRAIN NATRIURETIC PEPTIDE, BNP OR PROBNP (02/05/2025 10:59 AM CDT) Pathologist [facility] PROBNP, N TERMINAL 8,181(H) <450 pg/mL [facility] Comment: Test Performed at: [facility] [address] [place] [address] [place] [address] Uli Chase MD Blood 02/05/2025 10:5 9 AM CDT 02/06/2025 3:00 AM CDT Lisa Nunn DO CHEMISTRY ORDERABLES Final Result [facility] [phone] [facility] [address] [address] [address] * LIPID PANEL (02/05/2025 10:59 AM CDT) CHOLESTEROL 128 <200 mg/dL [facility] [...] factors. LDL-C is now calculated using the Ld-Napoles calculation, which is a validated novel method providing better accuracy than the Friedewald equation in the estimation of LDL-C. Ld SS et al. VERITO. 2013;310(19): 4970-7760 (http://education.Finicity/faq/YXK540) CHOL/HDL RATIO 2.5 <5.0 (calc) [facility] NON-HDL CHOLESTEROL 77 <130 mg/dL (calc) [facility] Comment: For patients with diabetes plus 1 major ASCVD risk factor, treating to a non-HDL-C goal of <100 mg/dL (LDL-C of <70 mg/dL) is considered a therapeutic option. Test Performed at: [facility] [address] [place] [address] Uli Chase MD Blood 02/05/2025 10:5 9 AM CDT 02/06/2025 3:00 AM CDT Lisa L Arline DO CHEMISTRY ORDERABLES Final Result [facility] [phone] [facility] [address] [address] [address] * (ABNORMAL) POC URINALYSIS DIPSTICK AUTOMATED (02/05/2025 10:54 AM CDT) COLOR UA POC Yellow Pale to Dark Yellow [facility] CLARITY UA POC Clear Clear, Other [facility] GLUCOSE UA POC Negative Negative, Normal [facility] BILIRUBIN UA POC Negative Negative [facility] KETONES UA POC Negative Negative [facility] SPECIFIC GRAVITY UA POC 1.010 1.000 - 1.030 [facility] BLOOD UA POC 1+(A) Negative [facility] PH UA POC 5.5 5.0 - 8.0 [facility] PROTEIN UA POC Negative Negative [facility] UROBILINOGEN UA POC 1.0 <2.0 mg/dL [facility] NITRITE UA POC Negative Negative [facility] LEUKOCYTE ESTERASE UA POC Negative Negative [facility] KIT LOT NUMBER POC [phone] [facility] KIT EXP DATE POC [id number] [facility] Urine 02/05/2025 10:5 4 AM CDT October BAKER CHEF POINT OF CARE TESTING Final Resu lt [facility] CLIA# [id number] [address] [place] [address] * (ABNORMAL) URINALYSIS WITH REFLEX CULTURE (01/23/2025 [...] Comment: NO CULTURE INDICATED Test Performed at: [facility] [address] [place] [address] Uli Chase MD Urine URINE SPECIMEN OBTAINED BY CLEAN CATCH PROCEDURE / Unknown 01/23/2025 4:13 PM CDT 01/24/2025 4:07 AM CDT Lisa Nunn DO URINE ORDERABLES Final Resu lt [facility] [phone] [facility] [address] [place] [address] * ENDOSCOPY, COLON, DIAGNOSTIC (04/30/2021) Makeda Hanley BAKER CHEF GI PROCEDURE ORDERABLES Final Result from Last 3 Months or Most Recently Relevant to Health Maintenance Insurance [place]ICAID [place] [facility] DUAL COMPLETE HMO [facility] [id number] Advance Directives For more information, please contact: [phone] Documents on File Type Date Recorded Patient Oral Health Therapist Expl anation Advance Directive POA 02/05/2025 9:40 AM A dvance Directive POA Advance Directive POA 07/22/2024 9:58 AM Advance Directive POA Care Teams Stereotyper Relationship Specialty Start Date End Date Lisa Nunn DO [address] [place] [address] PCP - General 12/30/20
--- OUTSIDE RECORDS SUMMARY | 2025-04-18 05:41 | XMS_ITS | Encounter Summary ---
Author Organization [facility] Address [address] [place] [address] Phone Care Team Providers Care Research Associate Name Role Phone Lisa Nunn DO Primary Care Provider [phone] Encounter Details Date Type Department Care Team (Late st Contact Info) Description 11/10/2023 Orders Only [facility] [address] [facility] [address] [place] [address] Chronic kidney disease, stage 4 [...] (HCC) documented in this encounter Care Teams Research Associate Relationship Specialty Start Date End Date Lisa Nunn DO [address] [place] [address] PCP - General Family Medicine 08/08/24 documented as of this encounter
--- OUTSIDE RECORDS SUMMARY | 2025-04-18 05:41 | XMS_ITS | Encounter Summary ---
Author Organization [facility] Address [address] [place] [address] Care Team Providers Care Biomechanical Engineer Name Role Phone Lisa Nunn DO Primary Care Provider [phone] Encounter Details Date Type Department Care Team (Late st Contact Info) Description 04/17/2025 Results Follow-Up [facility] [place] [address] [place] [address] Lisa Nunn, [address] [place] [address] XR THORACIC SPINE 2 VW Social History Tobacco Use Types Packs/Day Years [...] Description 05/10/2025 11:00 AM CDT Office Visit [facility] [address] [place] [phone] Lisa Nunn, DO [address] [place] [phone] 08/14/2025 11:40 AM JAVA SECURITY ARCHITECT Office Visit [facility] [address] [place] [address] Lisa Nunn, DO [address] [place] [phone] 11/01/2025 9:20 AM CDT Office Visit [facility] [address] [place] [address] Lisa Nunn, DO [address] [place] [address] 02/12/2026 9:40 AM CDT Office Visit [facility] [address] [place] [address] Lisa Nunn, DO [address] [place] [phone] documented as of this encounter Visit Diagnoses Not on filedocumented in this encounter Care Teams Biomechanical Engineer Relationship Specialty Start Date End Date Lisa Nunn DO [address] [facility] [place] [address] PCP - General 12/30/20 documented as of this encounter
[2025-04-18 06:09] LABS: Hematocrit 34.1 % (36-47); Hemoglobin 10.20 g/dL (11.27-16.99); Mean Corpuscular HGB Conc 29.9 g/dL (30-55); Mean Corpuscular Hemoglobin 26.8 pg (27-33); Mean Corpuscular Volume 89.5 fl (85-98); Nucleated Red Blood Cells % 0 %; Platelet Count 381 10^3/cmm (157-399); Red Blood Count 3.81 10^6/uL (3.85-5.65); White Blood Count 5.74 10^3/uL (3.29-11.43)
[2025-04-18 06:21] LABS: INR 1.20 (0.8-1.2); Prothrombin Time 16.00 SECONDS (12.1-14.9)
[2025-04-18 06:34] LABS: Alanine Aminotransferase 13 U/L (0-33); Albumin Level 3.8 g/dL (3.5-5.2); Alkaline Phosphatase 106 U/L (35-105); Anion Gap 17.4 (5-19); Aspartate Amino Transferase 20 U/L (0-32); Blood Urea Nitrogen 23 mg/dL (8-23); Calcium 9.0 mg/dL (8.5-10.5); Carbon Dioxide 30 mmol/L (22-29); Chloride 95 mmol/L (98-107); Creatinine Clr Calc Pharmacy 32.1768; Globulin 3.3 g/dL (1.3-4.6); Glucose 98 mg/dL (65-115); NT Pro B Type Natriuretic Pept 8684 pg/mL (0-450); Osmolality Calculated 290 mOsm/kg (285-295); Potassium 4.4 mmol/L (3.5-5.1); Sodium 138 mmol/L (136-145); Total Protein 7.1 g/dL (6.6-8.7)
--- NOTE | 2025-04-18 06:37 | CTR_ITS ---
PROCEDURE INFORMATION: Exam: CTA Chest With Contrast Exam date and time: 04/18/2025 7:04 AM Age: 79 years old Clinical indication: Shortness of breath; Prior surgery; Surgery date: 3-7 days post-operative; Surgery type: Post op hip; Additional info: Postop, exertional dyspnea TECHNIQUE: Imaging protocol: Computed tomographic angiography of the chest with contrast. Exam focused on the arteries. 3D rendering (Not supervised by radiologist): MIP and/or 3D reconstructed images were created by the technologist. Radiation optimization: All CT scans at this facility use at least one of these dose optimization techniques: automated exposure control; mA and/or kV adjustment per patient size (includes targeted exams where dose is matched to clinical indication); or iterative reconstruction. Contrast material: OMNI 350; Contrast volume: 100 ml; Contrast route: INTRAVENOUS (IV); COMPARISON: CT angio chest [id number] 06/17/2022 5:51 PM RADIATION DOSE METRICS: Total DLP (mGy-cm): 243.08 FINDINGS: Pulmonary arteries: Normal. No pulmonary emboli. Aorta: Unremarkable. No aortic aneurysm. No aortic dissection. Lungs: Stable dependent atelectasis. Mild nodular atelectasis in the right middle lobe. Pleural spaces: Small bilateral pleural effusions. Heart: Marked cardiomegaly. Lymph nodes: Unremarkable. No enlarged lymph nodes. Bones/joints: Unremarkable. No acute fracture. Soft tissues: Unremarkable. CT/CT angio chest PE protcl [id number] IMPRESSION: 2. Marked cardiomegaly. 3. Small pleural effusions. 4. No embolus.
[2025-04-18 06:51] VITALS: PULSE 61; O2SAT 97
[2025-04-18] MEDS: iohexol 350 mg/mL 500 mL Btl (per mL) IV (07:14)
--- NOTE | 2025-04-18 08:01 | ECG_ITS ---
[facility] Test Date: 2025-04-18 Pat Name: Ilana Lau Department: Room: Gender: Female Train Station Server: : 1945 Requested By: Dick Villa Order Number: [id number] Reading MD: Jose Manuel Linares M.D. Measurements Intervals [place] Rate: 59 P: -3 OR: 198 QRS: -11 QRSD: 98 T: 102 QT: 434 QTc: 433 Interpretive Statements SINUS BRADYCARDIA ANTEROSEPTAL AND INFERIOR MYOCARDIAL INFARCTION, OLD MILD ST ELEVATION IN THE LATERAL LEADS, POSSIBLE INJURY T WAVE INVERSION IN THE LATERAL LEADS, POSSIBLE ISCHEMIA Compared to ECG 04/18/2025 05:43:04, NO SIGNIFICANT CHANGE Electronically Signed On 04-18-2025 21:08:28 CDT by Jose Manuel Linares M.D. [email or web address]
[2025-04-18 08:30] LABS: Troponin(5th) Baseline 23 ng/L (0-10)
[2025-04-18 08:56] LABS: Troponin 5 2HR 22.06 ng/L (0-10)
[2025-04-18 08:58] LABS: Troponin 5 2HR Delta -0.94 ABS# (0-10)
[2025-04-18 09:13] VITALS: PULSE 62; O2SAT 96
--- NOTE | 2025-04-18 09:52 | ECG_ITS ---
[facility] Test Date: 2025-04-18 Pat Name: Ilana Lau Department: Room: Gender: Female Junior Programmer: : 1945 Requested By: Dick Villa Order Number: [id number] Ramandeep MD: Jose Manuel Linares M.D. Measurements Intervals [place] Rate: 62 P: -15 IN: 224 QRS: -7 QRSD: 94 T: 102 QT: 424 QTc: 431 Interpretive Statements SINUS RHYTHM WITH FIRST DEGREE AV BLOCK POSSIBLE ANTERIOR MYOCARDIAL INFARCTION , OF INDETERMINATE AGE [30 ms Q WAVE IN V3/V4, OR R < 0.2 mV IN V4] ST ELEVATION, CONSIDER ANTERIOR AND INFERIOR INJURY [MARKED ST ELEVATION W/O NORMALLY INFLECTED T-WAVE IN II/aVF] T WAVE INVERSIONS IN THE LATERAL LEADS, POSSIBLE ISCHEMIA POSSIBLE ACUTE PR Compared to ECG 04/18/2025 08:01:45 NO SIGNIFICANT CHANGE Electronically Signed On 04-18-2025 21:35:46 CDT by Jose Manuel Linares M.D. [email or web address]
[2025-04-18 10:04] VITALS: BP 122/74; PULSE 68; O2SAT 94
--- NOTE | 2025-04-20 08:04 | DCPLANNER ---
messaged heart care for er f/u
== END 2025-04-18 10:06 | disposition home or self-care (01) ==
PROVIDERS: Emergency Medicine; Emergency Provider Family Medicine; PCP Family Medicine
DX: R06.00 Dyspnea, unspecified (principal); I48.91 Unspecified atrial fibrillation; Z79.02 Long term (current) use of antithrombotics/antiplatelets; I25.10 Atherosclerotic heart disease of native coronary artery without angina pectoris; I11.0 Hypertensive heart disease with heart failure; I50.9 Heart failure, unspecified
CPT/HCPCS: 36415; 71045; 71275; 80053; 83880; 84484; 85025; 85378; 85610; 93005; 99285

== ENCOUNTER → 2025-05-01 14:10 | Outpatient (BNVA) | payer OTHER, MEDICAID, SELFPAY | PROVIDERS: PCP Family Medicine; Visit Provider Internal Medicine | DX: I48.91 Unspecified atrial fibrillation (principal); Z79.02 Long term (current) use of antithrombotics/antiplatelets; Z79.82 Long term (current) use of aspirin; I11.0 Hypertensive heart disease with heart failure; I50.9 Heart failure, unspecified; I25.5 Ischemic cardiomyopathy; Z95.810 Presence of automatic (implantable) cardiac defibrillator | CPT/HCPCS: 99214 ==

== ENCOUNTER → 2025-05-23 10:28 | Outpatient (BNVA) | payer OTHER, MEDICAID, SELFPAY | PROVIDERS: PCP Family Medicine; Visit Provider Internal Medicine Cardiovascular Disease | DX: Z45.02 Encounter for adjustment and management of automatic implantable cardiac defibrillator (principal) | CPT/HCPCS: 93296 ==

== ENCOUNTER → 2025-05-29 09:45 | Outpatient (BNVA) | payer OTHER, MEDICAID, SELFPAY | PROVIDERS: PCP Family Medicine; Visit Provider Physician Assistant | DX: Z98.890 Other specified postprocedural states (principal); Z96.649 Presence of unspecified artificial hip joint | CPT/HCPCS: 73502; 99024 ==

== ENCOUNTER → 2025-06-26 12:48 | Outpatient (BNVA) | payer OTHER, MEDICAID, SELFPAY | PROVIDERS: PCP Family Medicine; Visit Provider Nurse Practitioner Family | DX: I48.91 Unspecified atrial fibrillation (principal); Z95.810 Presence of automatic (implantable) cardiac defibrillator; I25.10 Atherosclerotic heart disease of native coronary artery without angina pectoris; I11.0 Hypertensive heart disease with heart failure; I50.23 Acute on chronic systolic (congestive) heart failure; Z87.891 Personal history of nicotine dependence | CPT/HCPCS: 99214 ==